=== PATIENT | male | born 1935 | race Caucasian/White ===

== ENCOUNTER 2017-05-25 08:32 | Emergency (ER) | payer MEDICARE, BC ==
[~2017-05-25] VITALS: Ht 182.9 cm; Wt 73.0 kg
[2017-05-25 08:35] VITALS: Ht 182.9 cm; Wt 73.0 kg
--- NOTE | 2017-05-25 09:39 | ERD ---
ER Documentation Chief Complaint Date/Time DATE: 05/25/17 TIME: 09:35 Chief Complaint here for htn and slight headache HPI This is an 82-year-old male with past medical history for hypertension and seasonal allergies, resents the emergency department with complaints of high blood pressure and headache. Patient states he woke up this morning and felt "different" so he checked his blood pressure and it was elevated at 171/93 at home. Patient states he takes Tribenzor every day for hypertension and states "it is not working any more." Patient states he came to the ER for evaluation and medication to lower his blood pressure. Patient denies having the worst headache he has ever had. No vision changes or vision loss. No recent fall or head injury. ROS All systems reviewed and are negative except as per history of present illness. PMhx/Soc Hx Cardiac Disorders: Yes (HTN) Hx Alcohol Use: Yes Hx Substance Use: No Hx Tobacco Use: No Smoking Status: Never smoker Physical Exam Vitals Vital Signs Date Time Temp Pulse Resp B/P Pulse Ox O2 Delivery O2 Flow Rate FiO2 05/25/17 10:35 140/64 05/25/17 08:35 97.5 100 18 189/82 97 Physical Exam Const: Alert, nontoxic-appearing, oriented to person place and time Head: Atraumatic Eyes: Normal Conjunctiva, PERRL, EOMs intact. ENT: Normal External Ears, Nose and Mouth. Neck: Full range of motion..~ No meningismus. Resp: Clear to auscultation bilaterally. No wheezing, rhonchi or crackles. Moderate labored breathing while talking Cardio: Regular rate and rhythm, no murmurs Abd: Soft, non tender, non distended. Normal bowel sounds Skin: No petechiae or rashes Back: No midline or flank tenderness Ext: No cyanosis, or edema Neur: Awake and alert Psych: Normal Mood and Affect Procedures/[place] [id number] Radiology Main Line: [phone] DIAGNOSTIC IMAGING REPORT Patient: AUDREY MCQUEEN : 1935 Age: 82 Sex: M MR #: [id number] DOS: 05/25/17 0908 Ordering MD: COURTNEY MEDINA NP Location: [facility] Room/Bed: PROCEDURE: XR Chest. CLINICAL INDICATION: shortness of breath TECHNIQUE: Single frontal chest x-ray. COMPARISON: None. FINDINGS: The lungs are hyperinflated consistent with COPD. Interstitial prominence or scarring is seen most notable at the left lung base. There are no alveolar infiltrates, edema, or effusions. . Calcific atherosclerosis of the aorta is present.. The cardiomediastinal silhouette is unremarkable. The osseous structures are intact. IMPRESSION: COPD with interstitial scarring at the left lower lung. Calcific atherosclerosis of the aorta.. [id number] [place] [id number] Radiology Main Line: [phone] DIAGNOSTIC IMAGING REPORT Patient: AUDREY MCQUEEN : 1935 Age: 82 Sex: M MR #: [id number] DOS: 05/25/17 0908 Ordering MD: COURTNEY MEDINA NP Location: [facility] Room/Bed: PROCEDURE: CT Brain without contrast. CLINICAL INDICATION: Headache. Hypertension. TECHNIQUE: A CT of the brain was performed on a multidetector CT scanner utilizing axial sections from the skull base through the vertex without contrast. Images were reviewed on a high-resolution PACS workstation. Exam CTDI = 43.38 mGy and the DLP = 720.23 mGy-cm. One or more of the following dose reduction techniques were used: Automated exposure control Adjustment of the mA and/or kV according to patient size. Use of iterative reconstruction technique. COMPARISON: None available FINDINGS: Moderate diffuse cerebral and cerebellar atrophy is present. There is proportionate dilatation of the ventricular system and sulci in a symmetric fashion. There is prominence of the extraaxial spaces secondary to atrophy. There is no evidence of intracranial hemorrhage, mass effect or midline shift. There is a small focus of chronic lacunar infarct in the right external capsule. No abnormal intra-axial or extra-axial fluid collections are seen. The density of the brain is normal and the andre/white matter differentiation is well preserved. Moderate patchy diffuse deep white matter microangiopathic ischemic change is seen. The osseous structures are unremarkable. Paranasal sinuses are clear. Vascular calcifications are identified. IMPRESSION: 1. No intracranial hemorrhage, mass effect or midline shift. 2. Moderate generalized atrophy. Moderate patchy microangiopathic ischemic change. Chronic lacunar infarct in the right external capsule. 3. Intracranial atherosclerosis. MDM: This is an 82-year-old male resenting to emergency department with complaints of hypertension and headache. Upon arrival patient's blood pressure 189/82 mmHg and heart rate 100 bpm. Patient states he has history of hypertension and usually takes Tribenzor once daily for blood pressure management. No vision changes. Patient denies this being the worst headache he has ever had. Reports mild headache. No recent fall or head injury. CT brain reviewed by radiologist as no intracranial hemorrhage, mass effect or midline shift. upon reassessment of vitals, BP decreased and now within normal limits. Vitals stable. Patient reports feeling better. Low suspicion for CVA, TIA or intracranial hemorrhage. Patient is appropriate for outpatient management and instructed to follow up with PCP in the next 2-3 days for reassessment. Return to ED for any new or worsening symptoms. Patient verbalizes understanding. All questions answered at discharge. Departure Diagnosis: Primary Impression: Hypertension Condition: Stable COURTNEY MEDINA NP May 25, 2017 09:39
--- NOTE | 2017-05-25 09:59 | RADRPT ---
PROCEDURE: XR Chest. CLINICAL INDICATION: shortness of breath TECHNIQUE: Single frontal chest x-ray. COMPARISON: None. FINDINGS: The lungs are hyperinflated consistent with COPD. Interstitial prominence or scarring is seen most notable at the left lung base. There are no alveolar infiltrates, edema, or effusions. . Calcific atherosclerosis of the aorta is present.. The cardiomediastinal silhouette is unremarkable. The oss eous structures are intact. IMPRESSION: COPD with interstitial scarring at the left lower lung. Calcific atherosclerosis of the aorta.. RPTAT: JJ .Romeo Curran MD, Date Time Electronically viewed and signed by .Romeo Curran MD, MD on 05/25/2017 09:59 .L/
--- NOTE | 2017-05-25 10:26 | RADRPT ---
PROCEDURE: CT Brain without contrast. CLINICAL INDICATION: Headache. Hypertension. TECHNIQUE: A CT of the brain was performed on a multidetector CT scanner utilizing axial sections from the skull base through the vertex without contrast. Images were reviewed on a high-resolution Bery[employer] workstation. Exam CTDI = 43.38 mGy and the DLP = 720.23 mGy-cm. One or more of the following dose reduction techniques were used: Automated exposure control Adjustment of the mA and/or kV according to patient size. Use of iterative reconstruction technique. COMPARISON: None available FINDINGS: Moderate diffuse cerebral and cerebellar atrophy is present. There is proportionate dilatation of t he ventricular system and sulci in a symmetric fashion. There is prominence of the extraaxial spaces secondary to atrophy. There is no evidence of intracranial hemorrhage, mass effect or midline shift . There is a small focus of chronic lacunar infarct in the right external capsule. No abnormal intra -axial or extra-axial fluid collections are seen. The density of the brain is normal and the andre/w ingris matter differentiation is well preserved. Moderate patchy diffuse deep white matter microangio pathic ischemic change is seen. The osseous structures are unremarkable. Paranasal sinuses are c lear. Vascular calcifications are identified. IMPRESSION: 1. No intracranial hemorrhage, mass effect or midline shift. 2. Moderate generalized atrophy. Moderate patchy microangiopathic ischemic change. Chronic lacunar i nfarct in the right external capsule. 3. Intracranial atherosclerosis. RPTAT: BB .Venice Tobias MD, Date Time Electronically viewed and signed by .Venice Tobias MD, on 05/25/2017 10:26 .O/
[2017-05-25 10:35] VITALS: BP 140/64
== END 2017-05-25 11:11 | disposition home or self-care (01) ==
LOC: FTE 10:42
DX: I10 Essential (primary) hypertension (principal); R51 Headache
CPT/HCPCS: 70450; 71010

== ENCOUNTER 2019-05-10 11:22 | Inpatient (IN) | payer MEDICARE, BC ==
[~2019-05-10] VITALS: Ht 182.9 cm; Wt 61.7 kg
[2019-05-10 11:30] VITALS: Ht 182.9 cm; Wt 61.7 kg
[2019-05-10] MEDS ORDERED: BUDE6HFA INH (12:33)
[2019-05-10] MEDS ORDERED: METO25TA4 ORAL (12:33)
[2019-05-10] MEDS ORDERED: OLME1TAB ORAL (12:33)
[2019-05-10] MEDS ORDERED: MONT10TA24 ORAL (12:33)
[2019-05-10] MEDS ORDERED: TIOT18CA INH (12:33)
--- NOTE | 2019-05-10 13:45 | ERD ---
ER Documentation Chief Complaint Chief Complaint BIB [facility] FOR EVAL OF CP THIS AM. ASA 325MG [employer] BY EMS HPI 84-year-old male who presents to the emergency complaining of chest pain. He states that he woke up this morning and described pressure in his chest. Patient states approximately 20 to 30 minutes of chest pressure that is now completely alleviated. No radiating symptoms no exertional symptoms no nausea or vomiting. Mild diaphoresis. He denies cardiac history or prior cardiac work-up. No symptoms currently. ROS All systems reviewed and are negative except as per history of present illness. Medications Home Meds Reported Medications Olmesartan/Amlodipin/Hcthiazid (Cdwvtqj-Mwwiiw-Qalf 40-10-25Mg) 1 Each Tablet, 1 TAB ORAL DAILY 05/10/19 Budesonide-Formoterol Fumarate* (Symbicort*) 160-4.5 Hfa.aer.ad, 1 PUFF INH DAILY 05/10/19 Metoprolol Tartrate* (Lopressor*) 25 Mg Tablet, 1 TAB ORAL BID 05/10/19 Montelukast Sodium* (Montelukast Sodium*) 10 Mg Tablet, 1 TAB ORAL DAILY 05/10/19 Tiotropium [place]* (Spiriva*) 18 Mcg Cap.w.dev, 1 CAP INH DAILY 05/10/19 Allergies Allergies: Coded Allergies: No Known Allergy (Unverified , 05/10/19) PMhx/Soc Hx Respiratory Disorders: Yes (asthma) Hx Cardiac Disorders: Yes (HTN) Hx Miscellaneous Medical Probl: Yes (borerline diabetes) Hx Alcohol Use: Yes Hx Substance Use: No Hx Tobacco Use: No Smoking Status: Never smoker FmHx Family History: No diabetes Physical Exam Vitals Vital Signs Date Temp Pulse Resp B/P (MAP) Pulse Ox O2 O2 Flow FiO2 Time Delivery Rate 05/10/19 76 18 169/98 98 Room Air 12:00 (121) 05/10/19 98.1 98 17 173/91 94 11:30 (118) Physical Exam General: Well developed, well nourished, no acute distress Head: Normocephalic, atraumatic. Eyes: Pupils equally reactive, EOM intact ENT: Moist mucous membranes Neck: Supple, no lymphadenopathy Respiratory: Lungs clear bilaterally, no distress Cardiovascular: RRR, no murmurs, rubs, or gallops Abdominal: Soft, non-tender, non-distended, no peritoneal signs : Deferred MSK: No edema, no unilateral swelling, 5/5 strength Neurologic: Alert and oriented, moving all extremities, normal speech, no focal weakness, no cerebellar signs Skin: No rash Psych: Normal mood Result Diagram: 05/10/19 1147 05/10/19 1147 Results 24 hrs Laboratory Tests Test 05/10/19 11:47 White Blood Count 5.8 10^3/ul Red Blood Count 4.61 10^6/ul Hemoglobin 14.1 g/dl Hematocrit 42.8 % Mean Corpuscular Volume 92.8 fl Mean Corpuscular Hemoglobin 30.6 pg Mean Corpuscular Hemoglobin Concent 32.9 g/dl Red Cell Distribution Width 13.9 % Platelet Count 245 10^3/UL Mean Platelet Volume 10.0 fl Immature Granulocytes % 0.200 % Neutrophils % 80.9 % Lymphocytes % 9.3 % Monocytes % 8.2 % Eosinophils % 0.9 % Basophils % 0.5 % Nucleated Red Blood Cells % 0.0 /100WBC Immature Granulocytes # 0.010 10^3/ul Neutrophils # 4.7 10^3/ul Lymphocytes # 0.5 10^3/ul Monocytes # 0.5 10^3/ul Eosinophils # 0.1 10^3/ul Basophils # 0.0 10^3/ul Nucleated Red Blood Cells # 0.0 10^3/ul Sodium Level 139 mmol/L Potassium Level 4.3 mmol/L Chloride Level 104 mmol/L Carbon Dioxide Level 28 mmol/L Anion Gap 7 Blood Urea Nitrogen 13 mg/dl Creatinine 0.60 mg/dl Est Glomerular Filtrat Rate mL/min mL/min Glucose Level 172 mg/dl Calcium Level 9.5 mg/dl Troponin I < 0.012 ng/ml Procedures/[facility] EKG, MONITORS, & DIAGNOSTIC IMAGING: EKG: I reviewed and interpreted a 12-lead EKG. Rhythm: Normal sinus rhythm ST Changes: No contiguous ST segment elevations T waves: No contiguous T wave inversions Impression: No evidence of acute cardiac ischemia Repeat EKG: EKG: I reviewed and interpreted a 12-lead EKG. Rhythm: Normal sinus rhythm ST Changes: No contiguous ST segment elevations T waves: No contiguous T wave inversions Impression: No evidence of acute cardiac ischemia Chest x-ray: I reviewed and interpreted a 1 view of the chest Mediastinum: No enlargement Cardiac silhouette: No cardiomegaly Airspace: Clear lung telles bilaterally without evidence of pneumothorax Bones: No evidence of fracture PROCEDURES: None LAB INTERPRETATION: * Negative troponin MEDICAL DECISION MAKING: The patient's history, physical exam and clinical presentation is concerning for possible cardiogenic etiology and acute coronary syndrome. Based on the patient's clinical exam and history and risk factors, I have a much lower clinical concern for pulmonary embolism, acute aortic dissection, pneumothorax, pneumonia, cardiac tamponade HEART Score: Greater than 3 MACE Rate: 16.6% Shared Decision Making: We had a conversation regarding risk stratification, MACE rate, and the risks, benefits, alternatives of disposition planning options. Disposition planning: Telemetry admission ER COURSE: * No symptoms, aspirin given prior to arrival CONSULTATION: None DISPOSITION PLAN: Telemetry admission for management of chest pain to rule out acute coronary syndrome, serial enzymes, risk stratification and consideration of provocative testing CONSULTATION: Accepting care team and consultations: I discussed the current laboratory data, diagnostic imaging and emergency care provided. Admitting team: Dr. Mccarthy Admitting team indication: Insurance directed Departure Diagnosis: Primary Impression: Chest pain Chest pain type: unspecified Qualified Codes: R07.9 - Chest pain, unspecified Condition: Stable ZAIN LEGER MD May 10, 2019 13:45
[2019-05-10] MEDS ORDERED: ACETAMINOPHEN 325 MG TAB PO PRN ×2 (14:00)
[2019-05-10] MEDS ORDERED: MAGNESIUM HYDROXIDE 30ML CUP PO PRN (14:00)
[2019-05-10] MEDS ORDERED: NACL 0.9% 3 ML SYG IV SCH (14:00)
[2019-05-10] MEDS ORDERED: NITROGLYCERIN (SL) 0.4 MG TAB SL PRN (14:00)
[2019-05-10] MEDS ORDERED: ONDANSETRON 4 MG INJ IV PRN ×2 (14:00)
[2019-05-10] MEDS ORDERED: CALCIUM CARBONATE 500 MG CHEW TAB PO PRN (14:00)
[2019-05-10] MEDS ORDERED: DOCUSATE SODIUM 100 MG CAP PO PRN (14:00)
[2019-05-10] MEDS ORDERED: hydrALAzine 20 MG INJ IV PRN (14:00)
[2019-05-10] MEDS ORDERED: ALBUTEROL 0.083% (NEB) 2.5 MG/3 ML AMP HHN PRN (15:00)
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
[2019-05-10] MEDS ORDERED: AMLODIPINE 5 MG TAB PO ONE (15:21)
--- NOTE | 2019-05-10 15:26 | CONS ---
Assessment/Plan Assessment/Plan Hospital Course (Demo Recall) Chest pain Hypertension Likely COPD Patient with chest pain which woke up with this morning, initially sharp and tingling then pressure for a few seconds and since resolved Denies exertional chest pain or shortness of breath Initial cardiac enzymes negative, ECG with no significant ischemic abnormalities Check serial cardiac enzymes, echocardiogram Blood pressure control Consultation Date/Type/Reason Admit Date/Time 05/10/19 Type of Consult Cardiology Reason for Consultation Chest pain Date/Time of Note DATE: 05/10/19 TIME: 15:22 Hx of Present Illness This is an 84-year-old male with past history of hypertension, tobacco use who presents with chest pain which began this morning. Chest pain was in his left shoulder and left side of chest. It was sharp and tingling like lasting for a few seconds and then some pressure and then resolved. Denies any shortness of breath, palpitations, dizziness or lightheadedness. Denies exertional chest pain or shortness of breath otherwise. He tells me he has multiple medication allergies and intolerant to many medicines. Denies any fevers or chills. 12 point review of systems was performed with all pertinent positives and negatives mentioned above and all else is negative Past Medical History COPD Medical History: hypertension Home Meds Reported Medications Olmesartan/Amlodipin/Hcthiazid ([id number] 40-10-25Mg) 1 Each Tablet, 1 TAB ORAL DAILY 05/10/19 Budesonide-Formoterol Fumarate* (Symbicort*) 160-4.5 Hfa.aer.ad, 1 PUFF INH DAILY 05/10/19 Metoprolol Tartrate* (Lopressor*) 25 Mg Tablet, 1 TAB ORAL BID 05/10/19 Montelukast Sodium* (Montelukast Sodium*) 10 Mg Tablet, 1 TAB ORAL DAILY 05/10/19 Tiotropium [place]* (Spiriva*) 18 Mcg Cap.w.dev, 1 CAP INH DAILY 05/10/19 Medications Current Medications Ondansetron HCl (Zofran Inj) 4 mg ER BRIDGE PRN IV NAUSEA/VOMITING; Start 05/10/19 at 14:00; Stop 05/11/19 at 13:59 Acetaminophen (Tylenol Tab) 650 mg ER BRIDGE PRN PO .MILD PAIN 1-3 OR TEMP; Start 05/10/19 at 14:00; Stop 05/11/19 at 13:59 Metoprolol Tartrate (Lopressor) 25 mg BID PO ; Start 05/10/19 at 21:00; Status UNV Montelukast Sodium (Singulair) 1 mg DAILY PO ; Start 05/11/19 at 09:00; Status UNV Tiotropium [place] (Spiriva) 1 inh DAILY INH ; Start 05/11/19 at 09:00; Status UNV Miscellaneous Information 1 puff DAILY INH ; Start 05/11/19 at 09:00; Status UNV Miscellaneous Information 1 tab DAILY ORAL ; Start 05/11/19 at 09:00; Status UNV IV Flush (NS 3 ml) 3 ml PER PROTOCOL IV ; Start 05/10/19 at 14:00; Status UNV Ondansetron HCl (Zofran Inj) 4 mg Q6H PRN IV NAUSEA/VOMITING; Start 05/10/19 at 14:00; Status UNV Aspirin (Aspirin) 81 mg DAILY PO ; Start 05/11/19 at 09:00; Status UNV Nitroglycerin (Nitroglycerin (Sl Tab) 0.4 Mg) 1 tab Q5M PRN SL .CHEST PAIN; Start 05/10/19 at 14:00; Status UNV Acetaminophen (Tylenol Tab) 650 mg Q6H PRN PO .PAIN 1-3 OR TEMP; Start 05/10/19 at 14:00; Status UNV Docusate Sodium (Colace) 100 mg Q12H PRN PO .CONSTIPATION; Start 05/10/19 at 14:00; Status UNV Magnesium Hydroxide (Milk Of Mag) 30 ml DAILY PRN PO .CONSTIPATION; Start 05/10/19 at 14:00; Status UNV Pantoprazole (Protonix Tab) 40 mg DAILY@06 PO ; Start 05/11/19 at 06:00; Status UNV Heparin Sodium (Porcine) (Heparin (5000 Units/1ml)) 5,000 unit Q8 SC ; Start 05/10/19 at 14:00; Status UNV Calcium Carbonate (Tums) 500 mg QID PRN PO indigestion; Start 05/10/19 at 14:00; Status UNV Hydralazine HCl (Apresoline) 10 mg Q4H PRN IV SBP >170; Start 05/10/19 at 14:00; Status UNV Albuterol (Proventil 0.083% (Neb)) 2.5 mg Q2H RESP THERAPY PRN HHN SHORTNESS OF BREATH; Start 05/10/19 at 15:00; Status UNV Allergies: Coded Allergies: No Known Allergy (Unverified , 05/10/19) Past Surgical History Past Surgical Hx: noncontributory Family History Significant Family History: heart disease Social History Alcohol Use: none Smoking Status: Former smoker Drug Use: none Exam/Review of Systems Vital Signs Vitals Vital Signs Date Temp Pulse Resp B/P (MAP) Pulse Ox O2 O2 Flow FiO2 Time Delivery Rate 05/10/19 76 18 169/98 98 Room Air 12:00 (121) 05/10/19 98.1 11:30 Exam Constitutional: alert, oriented (No apparent distress, sitting in chair, no dyspnea with speaking) Head: normocephalic Respiratory: other (Coarse breath sounds bilaterally, no wheezing) Cardiovascular: regular rate and rhythm, systolic murmur (S1-S2 heard) Gastrointestinal: soft, non-tender, bowel sounds Extremities: other (No significant edema) Labs Result Diagram: 05/10/19 1147 05/10/19 1147 Results 24hrs Laboratory Tests Test 05/10/19 11:47 White Blood Count 5.8 Red Blood Count 4.61 L Hemoglobin 14.1 Hematocrit 42.8 Mean Corpuscular Volume 92.8 Mean Corpuscular Hemoglobin 30.6 Mean Corpuscular Hemoglobin Concent 32.9 Red Cell Distribution Width 13.9 Platelet Count 245 Mean Platelet Volume 10.0 Immature Granulocytes % 0.200 Neutrophils % 80.9 H Lymphocytes % 9.3 L Monocytes % 8.2 Eosinophils % 0.9 Basophils % 0.5 Nucleated Red Blood Cells % 0.0 Immature Granulocytes # 0.010 Neutrophils # 4.7 Lymphocytes # 0.5 L Monocytes # 0.5 Eosinophils # 0.1 Basophils # 0.0 Nucleated Red Blood Cells # 0.0 Sodium Level 139 Potassium Level 4.3 Chloride Level 104 Carbon Dioxide Level 28 Anion Gap 7 Blood Urea Nitrogen 13 Creatinine 0.60 L Est Glomerular Filtrat Rate mL/min Glucose Level 172 Calcium Level 9.5 Troponin I < 0.012 Imaging Imaging Sinus rhythm at 90 bpm, QRS 100 ms, no significant ischemic ST abnormalities Medications Medications Current Medications Ondansetron HCl (Zofran Inj) 4 mg ER BRIDGE PRN IV NAUSEA/VOMITING; Start 05/10/19 at 14:00; Stop 05/11/19 at 13:59 Acetaminophen (Tylenol Tab) 650 mg ER BRIDGE PRN PO .MILD PAIN 1-3 OR TEMP; Start 05/10/19 at 14:00; Stop 05/11/19 at 13:59 Metoprolol Tartrate (Lopressor) 25 mg BID PO ; Start 05/10/19 at 21:00; Status UNV Montelukast Sodium (Singulair) 1 mg DAILY PO ; Start 05/11/19 at 09:00; Status UNV Tiotropium [place] (Spiriva) 1 inh DAILY INH ; Start 05/11/19 at 09:00; Status UNV Miscellaneous Information 1 puff DAILY INH ; Start 05/11/19 at 09:00; Status UNV Miscellaneous Information 1 tab DAILY ORAL ; Start 05/11/19 at 09:00; Status U NV IV Flush (NS 3 ml) 3 ml PER PROTOCOL IV ; Start 05/10/19 at 14:00; Status UNV Ondansetron HCl (Zofran Inj) 4 mg Q6H PRN IV NAUSEA/VOMITING; Start 05/10/19 at 14:00; Status UNV Aspirin (Aspirin) 81 mg DAILY PO ; Start 05/11/19 at 09:00; Status UNV Nitroglycerin (Nitroglycerin (Sl Tab) 0.4 Mg) 1 tab Q5M PRN SL .CHEST PAIN; Start 05/10/19 at 14:00; Status UNV Acetaminophen (Tylenol Tab) 650 mg Q6H PRN PO .PAIN 1-3 OR TEMP; Start 05/10/19 at 14:00; Status UNV Docusate Sodium (Colace) 100 mg Q12H PRN PO .CONSTIPATION; Start 05/10/19 at 14:00; Status UNV Magnesium Hydroxide (Milk Of Mag) 30 ml DAILY PRN PO .CONSTIPATION; Start 05/10/19 at 14:00; Status UNV Pantoprazole (Protonix Tab) 40 mg DAILY@06 PO ; Start 05/11/19 at 06:00; Status UNV Heparin Sodium (Porcine) (Heparin (5000 Units/1ml)) 5,000 unit Q8 SC ; Start 05/10/19 at 14:00; Status UNV Calcium Carbonate (Tums) 500 mg QID PRN PO indigestion; Start 05/10/19 at 14:00; Status UNV Hydralazine HCl (Apresoline) 10 mg Q4H PRN IV SBP >170; Start 05/10/19 at 14:00; Status UNV Albuterol (Proventil 0.083% (Neb)) 2.5 mg Q2H RESP THERAPY PRN HHN SHORTNESS OF BREATH; Start 05/10/19 at 15:00; Status UNV Bao Garza DO May 10, 2019 15:26
[2019-05-10] MEDS: HEPARIN 5,000 UNIT/1 ML VIAL SC SCH ×2 (16:06→23:50)
[2019-05-10] MEDS: HYDROCHLOROTHIAZIDE 12.5 MG CAP PO SCH (16:35)
[2019-05-10 20:13] VITALS: BP 187/88; PULSE 83; RESP 18
[2019-05-10] MEDS: LOSARTAN 25 MG TAB PO SCH (23:12)
[2019-05-10] MEDS: AMLODIPINE 5 MG TAB PO SCH (23:12)
[2019-05-10] MEDS: METOPROLOL 25 MG TAB PO SCH (23:12)
[2019-05-11] VITALS (8 sets, daily range): BP systolic 130–173; BP diastolic 56–86; PULSE 75–104; RESP 18
[2019-05-11] MEDS: PANTOPRAZOLE (EC) 40 MG TAB PO SCH (05:43)
[2019-05-11] MEDS: HEPARIN 5,000 UNIT/1 ML VIAL SC SCH ×3 (06:37→21:53)
[2019-05-11] MEDS: FLUTICASONE/VILANTEROL 200-25 INH DEVICE INH SCH (08:27)
[2019-05-11] MEDS: ASPIRIN 81 MG TAB PO SCH (08:28)
[2019-05-11] MEDS: TIOTROPIUM 18 MCG CAPSULE INHA DEV INH SCH (08:28)
[2019-05-11] MEDS: MONTELUKAST 10 MG TAB PO SCH (08:29)
[2019-05-11] MEDS: HYDROCHLOROTHIAZIDE 12.5 MG CAP PO SCH (08:29)
[2019-05-11] MEDS: LOSARTAN 25 MG TAB PO SCH ×2 (08:30→21:42)
[2019-05-11] MEDS: AMLODIPINE 5 MG TAB PO SCH ×2 (08:30→21:41)
[2019-05-11] MEDS: METOPROLOL 25 MG TAB PO SCH ×2 (08:30→21:42)
[2019-05-11] MEDS ORDERED: NON-FORMULARY/PATIENT OWN MED (Olmesartan/Amlodipin/Hcthiazid (Olmsrtn-Amldpn-Hctz 40-10-2 ORAL SCH (09:00)
--- NOTE | 2019-05-11 10:46 | PN ---
Date/Time of Note Date/Time of Note DATE: 05/11/19 TIME: 10:44 Assessment/Plan VTE Prophylaxis SCD applied (from Nsg): Yes Pharmacological prophylaxis: LMWH Lines/Catheters IV Catheter Type (from Nrsg): Saline Lock Urinary Cath still in place: No Assessment/Plan Assessment/Plan 1. Acute atypical chest pain, rule out ACS - Serial trops negative and awaiting ECHO results - Cardiology consultation appreciated and if no issues with ECHO, will d/c hemant - most likely stress related - nitro, O2 PRN - lipid panel within normal limits with no need for statin 2. HTN - continue home medications 3. Environmental allergies - continue Singulair 4. h/o tobacco abuse - continue Spiriva - Neb PRN 5. Disposition - Awaiting ECHO results and will d/c once cleared by Cardiology for discharge home Result Diagram: 05/11/19 0714 05/11/19 0714 Results 24hrs Laboratory Tests Test 05/10/19 11:46 05/10/19 11:47 05/10/19 20:11 05/11/19 02:21 Hemoglobin A1c 5.7 White Blood Count 5.8 Red Blood Count 4.61 L Hemoglobin 14.1 Hematocrit 42.8 Mean Corpuscular 92.8 Volume Mean Corpuscular 30.6 Hemoglobin Mean Corpuscular 32.9 Hemoglobin Concent Red Cell 13.9 Distribution Width Platelet Count 245 Mean Platelet Volume 10.0 Immature 0.200 Granulocytes % Neutrophils % 80.9 H Lymphocytes % 9.3 L Monocytes % 8.2 Eosinophils % 0.9 Basophils % 0.5 Nucleated Red Blood 0.0 Cells % Immature 0.010 Granulocytes # Neutrophils # 4.7 Lymphocytes # 0.5 L Monocytes # 0.5 Eosinophils # 0.1 Basophils # 0.0 Nucleated Red Blood 0.0 Cells # Sodium Level 139 Potassium Level 4.3 Chloride Level 104 Carbon Dioxide Level 28 Anion Gap 7 Blood Urea Nitrogen 13 Creatinine 0.60 L Est Glomerular Filtrat Rate mL/min Glucose Level 172 Calcium Level 9.5 Troponin I < 0.012 < 0.012 0.019 Creatine Kinase 139 176 Creatine Kinase 3.7 2.7 Index Creatinine Kinase MB 5.18 H 4.83 H (Mass) Test 05/11/19 07:14 White Blood Count 5.1 Red Blood Count 4.95 Hemoglobin 15.0 Hematocrit 45.5 Mean Corpuscular 91.9 Volume Mean Corpuscular 30.3 Hemoglobin Mean Corpuscular 33.0 Hemoglobin Concent Red Cell 13.7 Distribution Width Platelet Count 254 Mean Platelet Volume 10.0 Immature 0.400 Granulocytes % Neutrophils % 70.8 Lymphocytes % 14.8 L Monocytes % 11.1 H Eosinophils % 2.1 Basophils % 0.8 Nucleated Red Blood 0.0 Cells % Immature 0.020 Granulocytes # Neutrophils # 3.6 Lymphocytes # 0.8 Monocytes # 0.6 Eosinophils # 0.1 Basophils # 0.0 Nucleated Red Blood 0.0 Cells # Sodium Level 139 Potassium Level 3.5 Chloride Level 99 Carbon Dioxide Level 30 Anion Gap 10 Blood Urea Nitrogen 11 Creatinine 0.60 L Est Glomerular Filtrat Rate mL/min Glucose Level 91 # Calcium Level 9.6 Magnesium Level 2.0 Triglycerides Level 72 Cholesterol Level 151 LDL Cholesterol, 88 Calculated HDL Cholesterol 49 Cholesterol/HDL 3.0 Ratio Thyroid Stimulating 2.130 Hormone (TSH) Subjective 24 Hr Interval Summary Free Text/Dictation Patient states hes feeling better and denies any further chest pain. No acute overnight events. Exam/Review of Systems Exam Vitals Vital Signs Date Temp Pulse Resp B/P (MAP) Pulse Ox O2 O2 Flow FiO2 Time Delivery Rate 05/11/19 99.0 80 18 133/56 95 07:08 (81) 05/10/19 Room Air 19:05 Intake and Output 05/10/19 05/10/19 05/11/19 1515:00 23:00 07:00 OutputOutput Total 800 ml 650 ml BalanceBalance -800 ml -650 ml Exam General: Patient is sitting upright in bed, no acute distress Neck: Supple Chest: nontender Lungs: Diminished breath sounds, nonlabored breathing, no wheezing or rhonchi appreciated Heart: Normal S1-S2, Regular rhythm and rate. No murmur, S3, or S4 Abdomen: Soft , nontender, nondistended , bowel sounds are present. No guarding no rebound tenderness Extremities: Normal to inspection, no edema no cyanosis Results Results 24hrs Laboratory Tests Test 05/10/19 11:46 05/10/19 11:47 05/10/19 20:11 05/11/19 02:21 Hemoglobin A1c 5.7 White Blood Count 5.8 Red Blood Count 4.61 L Hemoglobin 14.1 Hematocrit 42.8 Mean Corpuscular 92.8 Volume Mean Corpuscular 30.6 Hemoglobin Mean Corpuscular 32.9 Hemoglobin Concent Red Cell 13.9 Distribution Width Platelet Count 245 Mean Platelet Volume 10.0 Immature 0.200 Granulocytes % Neutrophils % 80.9 H Lymphocytes % 9.3 L Monocytes % 8.2 Eosinophils % 0.9 Basophils % 0.5 Nucleated Red Blood 0.0 Cells % Immature 0.010 Granulocytes # Neutrophils # 4.7 Lymphocytes # 0.5 L Monocytes # 0.5 Eosinophils # 0.1 Basophils # 0.0 Nucleated Red Blood 0.0 Cells # Sodium Level 139 Potassium Level 4.3 Chloride Level 104 Carbon Dioxide Level 28 Anion Gap 7 Blood Urea Nitrogen 13 Creatinine 0.60 L Est Glomerular Filtrat Rate mL/min Glucose Level 172 Calcium Level 9.5 Troponin I < 0.012 < 0.012 0.019 Creatine Kinase 139 176 Creatine Kinase 3.7 2.7 Index Creatinine Kinase MB 5.18 H 4.83 H (Mass) Test 05/11/19 07:14 White Blood Count 5.1 Red Blood Count 4.95 Hemoglobin 15.0 Hematocrit 45.5 Mean Corpuscular 91.9 Volume Mean Corpuscular 30.3 Hemoglobin Mean Corpuscular 33.0 Hemoglobin Concent Red Cell 13.7 Distribution Width Platelet Count 254 Mean Platelet Volume 10.0 Immature 0.400 Granulocytes % Neutrophils % 70.8 Lymphocytes % 14.8 L Monocytes % 11.1 H Eosinophils % 2.1 Basophils % 0.8 Nucleated Red Blood 0.0 Cells % Immature 0.020 Granulocytes # Neutrophils # 3.6 Lymphocytes # 0.8 Monocytes # 0.6 Eosinophils # 0.1 Basophils # 0.0 Nucleated Red Blood 0.0 Cells # Sodium Level 139 Potassium Level 3.5 Chloride Level 99 Carbon Dioxide Level 30 Anion Gap 10 Blood Urea Nitrogen 11 Creatinine 0.60 L Est Glomerular Filtrat Rate mL/min Glucose Level 91 # Calcium Level 9.6 Magnesium Level 2.0 Triglycerides Level 72 Cholesterol Level 151 LDL Cholesterol, 88 Calculated HDL Cholesterol 49 Cholesterol/HDL 3.0 Ratio Thyroid Stimulating 2.130 Hormone (TSH) Medications Medication Current Medications Ondansetron HCl (Zofran Inj) 4 mg ER BRIDGE PRN IV NAUSEA/VOMITING; Start 05/10/19 at 14:00; Stop 05/11/19 at 13:59 Acetaminophen (Tylenol Tab) 650 mg ER BRIDGE PRN PO .MILD PAIN 1-3 OR TEMP; Start 05/10/19 at 14:00; Stop 05/11/19 at 13:59 Metoprolol Tartrate (Lopressor) 25 mg BID PO Last administered on 05/11/19at 08:30; Admin Dose 25 MG; Start 05/10/19 at 21:00 Montelukast Sodium (Singulair) 1 mg DAILY PO Last administered on 05/11/19at 08:29; Admin Dose 1 MG; Start 05/11/19 at 09:00 Tiotropium [place] (Spiriva) 1 inh DAILY INH Last administered on 05/11/19at 08:28; Admin Dose 1 INH; Start 05/11/19 at 09:00 Fluticasone/ Vilanterol (Breo Ellipta 200-25 Mcg Inh) 1 inh DAILY INH Last administered on 05/11/19at 08:27; Admin Dose 1 INH; Start 05/11/19 at 09:00 IV Flush (NS 3 ml) 3 ml PER PROTOCOL IV ; Start 05/10/19 at 14:00 Ondansetron HCl (Zofran Inj) 4 mg Q6H PRN IV NAUSEA/VOMITING; Start 05/10/19 at 14:00 Aspirin (Aspirin) 81 mg DAILY PO Last administered on 05/11/19at 08:28; Admin Dose 81 MG; Start 05/11/19 at 09:00 Nitroglycerin (Nitroglycerin (Sl Tab) 0.4 Mg) 1 tab Q5M PRN SL .CHEST PAIN; Start 05/10/19 at 14:00 Acetaminophen (Tylenol Tab) 650 mg Q6H PRN PO .PAIN 1-3 OR TEMP; Start 05/10/19 at 14:00 Docusate Sodium (Colace) 100 mg Q12H PRN PO .CONSTIPATION; Start 05/10/19 at 14:00 Magnesium Hydroxide (Milk Of Mag) 30 ml DAILY PRN PO .CONSTIPATION; Start 05/10/19 at 14:00 Pantoprazole (Protonix Tab) 40 mg DAILY@06 PO Last administered on 05/11/19at 05:43; Admin Dose 40 MG; Start 05/11/19 at 06:00 Heparin Sodium (Porcine) (Heparin (5000 Units/1ml)) 5,000 unit Q8 SC Last administered on 05/11/19at 06:37; Admin Dose 5,000 UNIT; Start 05/10/19 at 14:00 Calcium Carbonate (Tums) 500 mg QID PRN PO indigestion; Start 05/10/19 at 14:00 Hydralazine HCl (Apresoline) 10 mg Q4H PRN IV SBP >170; Start 05/10/19 at 14:00 Albuterol (Proventil 0.083% (Neb)) 2.5 mg Q2H RESP THERAPY PRN HHN SHORTNESS OF BREATH; Start 05/10/19 at 15:00 Amlodipine Besylate (Norvasc) 5 mg BID PO Last administered on 05/11/19at 08:30; Admin Dose 5 MG; Start 05/10/19 at 21:00 Hydrochlorothiazide (Hydrochlorothiazide) 12.5 mg DAILY PO Last administered on 05/11/19at 08:29; Admin Dose 12.5 MG; Start 05/10/19 at 17:00 Losartan Potassium (Cozaar) 25 mg BID PO Last administered on 05/11/19 08:30; Admin Dose 25 MG; Start 05/10/19 at 21:00 SOFIA AYOUB MD May 11, 2019 10:46
--- NOTE | 2019-05-11 16:03 | RADRPT ---
Echocardiogram Report Patient Name: AUDREY MCQUEEN JOHPatient ID: [id number] : 1935 (84y 2m)Study Date: 05/11/2019 7:37:04 AM Gender: MAccession #: [id number] Tech: GarryMary Santos [facility] Location: [facility] Ref.Physician: SOFIA AYOUB Height(Cm): BSA: Weight(Kg): Quality: AdequateOrder Physician: SOFIA AYOUB Account #: Procedures: Echocardiographic Report: Transthoracic echocardiogram with complete 2D, M-Mode, and doppler examination. Indications: Evaluate Left Ventricular function, and Chest Pain. Measurements: 2D/M Mode Doppler Measurement Value Normal Range Measurement Value Normal Range LVIDd 2D 3.9 [ 4.2 - 5.8 ] cm AV Peak Leonardo 1.7 [ 100.0 - 170.0 ] cm/sec LVIDs 2D 2.0 [ 2.5 - 4.0 ] cm AV Peak PG 11.0 [ 2.0 - 9.0 ] mmHg LVPWd 2D 1.1 [ 0.6 - 1.0 ] cm LVOT Peak Leonardo 1.1 [ 70.0 - 110.0 ] cm/sec IVSd 2D 1.1 [ 0.6 - 1.0 ] cm LVOT Peak PG 5.0 [ 2.0 - 6.0 ] mmHg AoR Diam 2D 2.7 [ 2.6 - 3.4 ] cm MV E Peak Leonardo 0.7 [ 60.0 - 130.0 ] cm/sec EDV 2D 66.3 [ 62.0 - 150.0 ] ml MV A Peak Leonardo 1.2 [ 100.0 - 120.0 ] cm/sec ESV 2D 13.1 [ 21.0 - 61.0 ] ml MV E/A 0.5 [ 0.8 - 1.5 ] ratio EF 2D 80.2 [ 52.0 - 72.0 ] percent MV Decel Time 176 [ 104 - 258 ] msec LA Dimen 2D 2.8 [ 3.0 - 4.0 ] cm Lat E` Leonardo 0.1 [ 10.0 - 15.0 ] cm/sec Lateral E/E` 7.1 [ 1.0 - 2.0 ] ratio Med E` Leonardo 0.1 cm/sec MV E/A 0.5 [ 0.8 - 1.5 ] ratio TR Peak Leonardo 2.4 [ 100.0 - 280.0 ] cm/sec TR Peak PG 23.0 mmHg RVSP 26.0 [ 10.0 - 36.0 ] mmHg RA Pressure 3.0 mmHg Findings: Left Ventricle: Hyperdynamic left ventricular systolic function. Normal left ventricular cavity size. Mild concentric left ventricular hypertrophy. Ejection fraction is visually estimated at 70 %. Tissue Doppler/Mitral Doppler indices are consistent with impaired relaxation (Stage I diastolic dysfunction). Right Ventricle: Normal right ventricular size. Normal right ventricular systolic function. Left Atrium: The left atrium is normal in size. Right Atrium: The right atrium is normal in size. Mitral Valve: Mitral valve leaflets appear mildly thickened. Mild mitral annular calcification. Trace mitral regurgitation. Aortic Valve: No significant aortic stenosis or insufficiency. Aortic cusps appear mildly calcified. Tricuspid Valve: Normal appearance of the tricuspid valve. The estimated Peak RVSP is 26 mmHg. There is trace tricuspid regurgitation. Pulmonic Valve: Normal pulmonic valve appearance. Pericardium: Normal pericardium with no significant pericardial effusion. Aorta: Normal aortic root. IVC: Normal size and normal respiratory collapse consistent with normal right atrial pressure. Conclusions: Hyperdynamic left ventricular systolic function. Normal left ventricular cavity size. Mild concentric left ventricular hypertrophy. Ejection fraction is visually estimated at 70 %. Tissue Doppler/Mitral Doppler indices are consistent with impaired relaxation (Stage I diastolic dysfunction). Normal right ventricular size. Normal right ventricular systolic function. No significant valvular stenosis or regurgitation seen. Normal pericardium with no significant pericardial effusion. Electronically Signed By: Bao Garza 2019-05-11 16:02:25 PDT
[2019-05-11] MEDS ORDERED: RISPERIDONE 0.25 MG TAB PO ONE (16:30)
--- NOTE | 2019-05-11 17:08 | PDOCDIS ---
Discharge Instructions DIAGNOSIS Discharge Diagnosis 1. Acute atypical chest pain, stress related. noncardiac 2. Hypertension 3. Environmental allergies 4. h/o remote tobacco use CONDITION [id number] Patient Condition: [id number] Stable HOME CARE INSTRUCTIONS: [id number] Diet Instructions: [id number] Low Fat /Cholesterol ACTIVITY: [id number] Activity Restrictions: [id number] No Restrictions FOLLOW UP/APPOINTMENTS Follow-up Plan 1. Follow up with your primary care physician in 1-2 weeks 2. Continue all medications as prescribed 3. Try and limit putting yourself in any stressful situation since it contr ibuted to your chest discomfort 4. You will have a nurse come to your home and assess need for any services as well as check your vitals 5. If experiencing any concerning symptoms, please go to your nearest emergency department SOFIA AYOUB MD May 11, 2019 17:08
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
--- NOTE | 2019-05-11 18:18 | CONS ---
Assessment/Plan Assessment/Plan Hospital Course (Demo Recall) Chest pain, resolved Preserved left ventricular ejection fraction Hypertension Likely COPD Patient with chest pain which woke up with this morning, initially sharp and tingling then pressure for a few seconds and since resolved Denies exertional chest pain or shortness of breath Initial cardiac enzymes negative, ECG with no significant ischemic abnormalities Serial cardiac enzymes remain negative, echocardiogram with preserved left ventricular ejection fraction Blood pressure control DC planning Consultation Date/Type/Reason Admit Date/Time May 10, 2019 at 13:41 Initial Consult Date Type of Consult Cardiology Date/Time of Note DATE: 05/11/19 TIME: 18:17 24 HR Interval Summary Free Text/Dictation Denies any further chest pain, denies shortness of breath or palpitations Exam/Review of Systems Vital Signs Vitals Vital Signs Date Temp Pulse Resp B/P (MAP) Pulse Ox O2 O2 Flow FiO2 Time Delivery Rate 05/11/19 99.0 89 18 156/72 97 15:36 (100) 05/10/19 Room Air 19:05 Intake and Output 05/10/19 05/10/19 05/11/19 1515:00 23:00 07:00 OutputOutput Total 800 ml 650 ml BalanceBalance -800 ml -650 ml Exam Constitutional: alert, oriented (No apparent distress) Head: normocephalic Respiratory: other (Coarse breath sounds bilaterally, no wheezing) Cardiovascular: regular rate and rhythm (S1-S2 heard) Gastrointestinal: soft, non-tender, bowel sounds Extremities: other (Trace edema) Labs Result Diagram: 05/11/19 0714 05/11/19 0714 Results 24hrs Laboratory Tests Test 05/10/19 20:11 05/11/19 02:21 05/11/19 07:14 Creatine Kinase 139 176 Creatine Kinase Index 3.7 2.7 Creatinine Kinase MB (Mass) 5.18 H 4.83 H Troponin I < 0.012 0.019 White Blood Count 5.1 Red Blood Count 4.95 Hemoglobin 15.0 Hematocrit 45.5 Mean Corpuscular Volume 91.9 Mean Corpuscular Hemoglobin 30.3 Mean Corpuscular Hemoglobin Concent 33.0 Red Cell Distribution Width 13.7 Platelet Count 254 Mean Platelet Volume 10.0 Immature Granulocytes % 0.400 Neutrophils % 70.8 Lymphocytes % 14.8 L Monocytes % 11.1 H Eosinophils % 2.1 Basophils % 0.8 Nucleated Red Blood Cells % 0.0 Immature Granulocytes # 0.020 Neutrophils # 3.6 Lymphocytes # 0.8 Monocytes # 0.6 Eosinophils # 0.1 Basophils # 0.0 Nucleated Red Blood Cells # 0.0 Sodium Level 139 Potassium Level 3.5 Chloride Level 99 Carbon Dioxide Level 30 Anion Gap 10 Blood Urea Nitrogen 11 Creatinine 0.60 L Est Glomerular Filtrat Rate mL/min Glucose Level 91 # Calcium Level 9.6 Magnesium Level 2.0 Triglycerides Level 72 Cholesterol Level 151 LDL Cholesterol, Calculated 88 HDL Cholesterol 49 Cholesterol/HDL Ratio 3.0 Thyroid Stimulating Hormone (TSH) 2.130 Medications Medications Current Medications Metoprolol Tartrate (Lopressor) 25 mg BID PO Last administered on 05/11/19 08:30; Admin Dose 25 MG; Start 05/10/19 at 21:00 Montelukast Sodium (Singulair) 1 mg DAILY PO Last administered on 05/11/19at 08:29; Admin Dose 1 MG; Start 05/11/19 at 09:00 Tiotropium [place] (Spiriva) 1 inh DAILY INH Last administered on 05/11/19at 08:28; Admin Dose 1 INH; Start 05/11/19 at 09:00 Fluticasone/ Vilanterol (Breo Ellipta 200-25 Mcg Inh) 1 inh DAILY INH Last administered on 05/11/19at 08:27; Admin Dose 1 INH; Start 05/11/19 at 09:00 IV Flush (NS 3 ml) 3 ml PER PROTOCOL IV ; Start 05/10/19 at 14:00 Ondansetron HCl (Zofran Inj) 4 mg Q6H PRN IV NAUSEA/VOMITING; Start 05/10/19 at 14:00 Aspirin (Aspirin) 81 mg DAILY PO Last administered on 05/11/19at 08:28; Admin Dose 81 MG; Start 05/11/19 at 09:00 Nitroglycerin (Nitroglycerin (Sl Tab) 0.4 Mg) 1 tab Q5M PRN SL .CHEST PAIN; Start 05/10/19 at 14:00 Acetaminophen (Tylenol Tab) 650 mg Q6H PRN PO .PAIN 1-3 OR TEMP; Start 05/10/19 at 14:00 Docusate Sodium (Colace) 100 mg Q12H PRN PO .CONSTIPATION; Start 05/10/19 at 14:00 Magnesium Hydroxide (Milk Of Mag) 30 ml DAILY PRN PO .CONSTIPATION; Start 05/10/19 at 14:00 Pantoprazole (Protonix Tab) 40 mg DAILY@06 PO Last administered on 05/11/19 05:43; Admin Dose 40 MG; Start 05/11/19 at 06:00 Heparin Sodium (Porcine) (Heparin (5000 Units/1ml)) 5,000 unit Q8 SC Last administered on 05/11/19 13:37; Admin Dose 5,000 UNIT; Start 05/10/19 at 14:00 Calcium Carbonate (Tums) 500 mg QID PRN PO indigestion; Start 05/10/19 at 14:00 Hydralazine HCl (Apresoline) 10 mg Q4H PRN IV SBP >170 Last administered on 05/11/19 11:39; Admin Dose 10 MG; Start 05/10/19 at 14:00 Albuterol (Proventil 0.083% (Neb)) 2.5 mg Q2H RESP THERAPY PRN HHN SHORTNESS OF BREATH; Start 05/10/19 at 15:00 Amlodipine Besylate (Norvasc) 5 mg BID PO Last administered on 05/11/19 08:30; Admin Dose 5 MG; Start 05/10/19 at 21:00 Hydrochlorothiazide (Hydrochlorothiazide) 12.5 mg DAILY PO Last administered on 05/11/19 08:29; Admin Dose 12.5 MG; Start 05/10/19 at 17:00 Losartan Potassium (Cozaar) 25 mg BID PO Last administered on 05/11/19 08:30; Admin Dose 25 MG; Start 05/10/19 at 21:00 Bao Garza DO May 11, 2019 18:18
[2019-05-12 03:31] VITALS: BP 123/60; PULSE 64; RESP 18
[2019-05-12] MEDS: PANTOPRAZOLE (EC) 40 MG TAB PO SCH (05:58)
[2019-05-12] MEDS: HEPARIN 5,000 UNIT/1 ML VIAL SC SCH ×3 (05:58→21:27)
[2019-05-12 07:17] VITALS: BP 133/64; PULSE 79; RESP 18
[2019-05-12] MEDS: ASPIRIN 81 MG TAB PO SCH (09:01)
[2019-05-12] MEDS: LOSARTAN 25 MG TAB PO SCH ×2 (09:03→21:03)
[2019-05-12] MEDS: HYDROCHLOROTHIAZIDE 12.5 MG CAP PO SCH (09:03)
[2019-05-12] MEDS: METOPROLOL 25 MG TAB PO SCH ×2 (09:04→21:02)
[2019-05-12] MEDS: AMLODIPINE 5 MG TAB PO SCH ×2 (09:05→21:03)
[2019-05-12] MEDS: TIOTROPIUM 18 MCG CAPSULE INHA DEV INH SCH (09:05)
[2019-05-12] MEDS: MONTELUKAST 10 MG TAB PO SCH (09:06)
[2019-05-12] MEDS: FLUTICASONE/VILANTEROL 200-25 INH DEVICE INH SCH (09:16)
--- NOTE | 2019-05-12 10:10 | PN ---
Date/Time of Note Date/Time of Note DATE: 05/12/19 TIME: 10:04 Assessment/Plan VTE Prophylaxis Risk score (from Ns)>0 risk: 3 SCD applied (from Ns): No SCD contraindicated: low risk/ambulating Pharmacological prophylaxis: LMWH Lines/Catheters IV Catheter Type (from [facility]): [place] Urinary Cath still in place: No Assessment/Plan Assessment/Plan 1. Acute atypical chest pain - ACS ruled out - serial trops negative and ECHO without structural abnormalities - Cardiology consultation appreciated and cleared for discharge home - most likely stress related - nitro, O2 PRN - lipid panel within normal limits with no need for statin 2. HTN - continue home medications 3. Environmental allergies - continue Singulair 4. h/o tobacco abuse - continue Spiriva - Neb PRN 5. Acute delirium - patient aware of his confusion last night but states feels safe to go home. Able to performed ADLs and obtain his own groceries. He has friends who call and check in on him - SW and CM on board to determine if safe for discharge home 6. Disposition - SW consulted to assist with determining if patient safe for discharge home. If no issues, will d/c. CM on board for possible placement as well Result Diagram: 05/11/1971305/11/19713 Subjective 24 Hr Interval Summary Free Text/Dictation Patient is complaining of fatigue this am and aware of his "episode" of confusion last night. He explained he was not sure if he was coming or going. He does live alone and states friends call and check in on him. He is able to shop for his own groceries and take care of his daily ADLs. He states he feels safe at this time to go home. Exam/Review of Systems Exam Vitals Vital Signs Date Temp Pulse Resp B/P (MAP) Pulse Ox O2 O2 Flow FiO2 Time Delivery Rate 05/12/19 98.0 79 18 133/64 97 Room Air 07:17 (87) Intake and Output 05/11/19 05/11/19 05/12/19 1515:00 23:00 07:00 IntakeIntake Total 850 ml 250 ml OutputOutput Total 350 ml 650 ml 700 ml BalanceBalance -350 ml 200 ml -450 ml Exam General: Patient is sitting upright in bed, no acute distress Mentation: alert and oriented x3 Neck: Supple Chest: nontender Lungs: Diminished breath sounds, nonlabored breathing, no wheezing or rhonchi appreciated Heart: Normal S1-S2, Regular rhythm and rate. No murmur, S3, or S4 Abdomen: Soft , nontender, nondistended , bowel sounds are present. Extremities: Normal to inspection, no edema no cyanosis Medications Medication Current Medications Metoprolol Tartrate (Lopressor) 25 mg BID PO Last administered on 05/12/19 09:04; Admin Dose 25 MG; Start 05/10/19 at 21:00 Montelukast Sodium (Singulair) 1 mg DAILY PO Last administered on 05/12/19 09:06; Admin Dose 1 MG; Start 05/11/19 at 09:00 Tiotropium [place] (Spiriva) 1 inh DAILY INH Last administered on 05/12/19 09:05; Admin Dose 1 INH; Start 05/11/19 at 09:00 Fluticasone/ Vilanterol (Breo Ellipta 200-25 Mcg Inh) 1 inh DAILY INH Last a dministered on 05/12/19 09:16; Admin Dose 1 INH; Start 05/11/19 at 09:00 IV Flush (NS 3 ml) 3 ml PER PROTOCOL IV ; Start 05/10/19 at 14:00 Ondansetron HCl (Zofran Inj) 4 mg Q6H PRN IV NAUSEA/VOMITING; Start 05/10/19 at 14:00 Aspirin (Aspirin) 81 mg DAILY PO Last administered on 05/12/19 09:01; Admin Dose 81 MG; Start 05/11/19 at 09:00 Nitroglycerin (Nitroglycerin (Sl Tab) 0.4 Mg) 1 tab Q5M PRN SL .CHEST PAIN; Start 05/10/19 at 14:00 Acetaminophen (Tylenol Tab) 650 mg Q6H PRN PO .PAIN 1-3 OR TEMP; Start 05/10/19 at 14:00 Docusate Sodium (Colace) 100 mg Q12H PRN PO .CONSTIPATION; Start 05/10/19 at 14:00 Magnesium Hydroxide (Milk Of Mag) 30 ml DAILY PRN PO .CONSTIPATION; Start 05/10/19 at 14:00 Pantoprazole (Protonix Tab) 40 mg DAILY@06 PO Last administered on 05/12/19 05:58; Admin Dose 40 MG; Start 05/11/19 at 06:00 Heparin Sodium (Porcine) (Heparin (5000 Units/1ml)) 5,000 unit Q8 SC Last administered on 05/11/19at 21:53; Admin Dose 5,000 UNIT; Start 05/10/19 at 14:00 Calcium Carbonate (Tums) 500 mg QID PRN PO indigestion; Start 05/10/19 at 14:00 Hydralazine HCl (Apresoline) 10 mg Q4H PRN IV SBP >170 Last administered on 05/11/19at 11:39; Admin Dose 10 MG; Start 05/10/19 at 14:00 Albuterol (Proventil 0.083% (Neb)) 2.5 mg Q2H RESP THERAPY PRN HHN SHORTNESS OF BREATH; Start 05/10/19 at 15:00 Amlodipine Besylate (Norvasc) 5 mg BID PO Last administered on 05/12/19at 09:05; Admin Dose 5 MG; Start 05/10/19 at 21:00 Hydrochlorothiazide (Hydrochlorothiazide) 12.5 mg DAILY PO Last administered on 05/12/19 09:03; Admin Dose 12.5 MG; Start 05/10/19 at 17:00 Losartan Potassium (Cozaar) 25 mg BID PO Last administered on 05/12/19 09:03; Admin Dose 25 MG; Start 05/10/19 at 21:00 SOFIA AYOUB MD May 12, 2019 10:10
[2019-05-12 11:12] VITALS: BP 129/65; PULSE 78; RESP 18
[2019-05-12] MEDS ORDERED: QUETIAPINE 25 MG TAB PO SCH (12:00)
[2019-05-12] MEDS ORDERED: LORAZEPAM 1 MG TAB PO PRN (12:30)
--- NOTE | 2019-05-12 12:53 | CONS ---
Assessment/Plan Assessment/Plan Hospital Course (Demo Recall) Chest pain, resolved Preserved left ventricular ejection fraction Hypertension Likely COPD Denies any further chest pain or shortness of breath Serial cardiac enzymes remain negative, echocardiogram with preserved left ventricular ejection fraction Blood pressure trend improved No further inpatient cardiac work-up needed at the current time DC planning Consultation Date/Type/Reason Admit Date/Time May 10, 2019 at 13:41 Initial Consult Date Type of Consult Cardiology Date/Time of Note DATE: 05/12/19 TIME: 12:52 24 HR Interval Summary Free Text/Dictation No chest pain, shortness of breath Exam/Review of Systems Vital Signs Vitals Vital Signs Date Temp Pulse Resp B/P (MAP) Pulse Ox O2 O2 Flow FiO2 Time Delivery Rate 05/12/19 98.2 78 18 129/65 97 Room Air 11:12 (86) Intake and Output 05/11/19 05/11/19 05/12/19 1515:00 23:00 07:00 IntakeIntake Total 850 ml 250 ml OutputOutput Total 350 ml 650 ml 700 ml BalanceBalance -350 ml 200 ml -450 ml Exam Constitutional: alert (Following commands, speaking with social research assistant) Head: normocephalic Respiratory: other (Coarse breath sounds bilaterally, no wheezing) Cardiovascular: regular rate and rhythm (S1-S2 heard) Gastrointestinal: soft, non-tender, bowel sounds Extremities: edema (Trace) Labs Result Diagram: 05/11/1914 05/11/1914 Medications Medications Current Medications Metoprolol Tartrate (Lopressor) 25 mg BID PO Last administered on 05/12/19at 09:04; Admin Dose 25 MG; Start 05/10/19 at 21:00 Montelukast Sodium (Singulair) 1 mg DAILY PO Last administered on 05/12/19at 09:06; Admin Dose 1 MG; Start 05/11/19 at 09:00 Tiotropium [place] (Spiriva) 1 inh DAILY INH Last administered on 05/12/19at 09:05; Admin Dose 1 INH; Start 05/11/19 at 09:00 Fluticasone/ Vilanterol (Breo Ellipta 200-25 Mcg Inh) 1 inh DAILY INH Last administered on 05/12/19at 09:16; Admin Dose 1 INH; Start 05/11/19 at 09:00 IV Flush (NS 3 ml) 3 ml PER PROTOCOL IV ; Start 05/10/19 at 14:00 Ondansetron HCl (Zofran Inj) 4 mg Q6H PRN IV NAUSEA/VOMITING; Start 05/10/19 at 14:00 Aspirin (Aspirin) 81 mg DAILY PO Last administered on 05/12/19at 09:01; Admin Dose 81 MG; Start 05/11/19 at 09:00 Nitroglycerin (Nitroglycerin (Sl Tab) 0.4 Mg) 1 tab Q5M PRN SL .CHEST PAIN; Start 05/10/19 at 14:00 Acetaminophen (Tylenol Tab) 650 mg Q6H PRN PO .PAIN 1-3 OR TEMP; Start 05/10/19 at 14:00 Docusate Sodium (Colace) 100 mg Q12H PRN PO .CONSTIPATION; Start 05/10/19 at 14:00 Magnesium Hydroxide (Milk Of Mag) 30 ml DAILY PRN PO .CONSTIPATION; Start 05/10/19 at 14:00 Pantoprazole (Protonix Tab) 40 mg DAILY@06 PO Last administered on 05/12/19at 05:58; Admin Dose 40 MG; Start 05/11/19 at 06:00 Heparin Sodium (Porcine) (Heparin (5000 Units/1ml)) 5,000 unit Q8 SC Last administered on 05/11/19at 21:53; Admin Dose 5,000 UNIT; Start 05/10/19 at 14:00 Calcium Carbonate (Tums) 500 mg QID PRN PO indigestion; Start 05/10/19 at 14:00 Hydralazine HCl (Apresoline) 10 mg Q4H PRN IV SBP >170 Last administered on 05/11/19at 11:39; Admin Dose 10 MG; Start 05/10/19 at 14:00 Albuterol (Proventil 0.083% (Neb)) 2.5 mg Q2H RESP THERAPY PRN HHN SHORTNESS OF BREATH; Start 05/10/19 at 15:00 Amlodipine Besylate (Norvasc) 5 mg BID PO Last administered on 05/12/19at 09:05; Admin Dose 5 MG; Start 05/10/19 at 21:00 Hydrochlorothiazide (Hydrochlorothiazide) 12.5 mg DAILY PO Last administered on 05/12/19at 09:03; Admin Dose 12.5 MG; Start 05/10/19 at 17:00 Losartan Potassium (Cozaar) 25 mg BID PO Last administered on 05/12/19at 09:03; Admin Dose 25 MG; Start 05/10/19 at 21:00 Quetiapine Fumarate (Seroquel) 25 mg BID PO ; Start 05/12/19 at 12:00 Bao Garza DO May 12, 2019 12:53
[2019-05-12 15:06] VITALS: BP 148/88; PULSE 88; RESP 18
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
[2019-05-12] MEDS: THIAMINE 100 MG TAB PO SCH (16:24)
[2019-05-12] MEDS: FOLIC ACID 1 MG TAB PO SCH (16:24)
[2019-05-12 19:49] VITALS: BP 118/52; PULSE 91; RESP 18
[2019-05-12] MEDS: ATORVASTATIN 20 MG TAB PO SCH (21:02)
[2019-05-12] MEDS: CHLORDIAZEPOXIDE 25 MG CAP PO SCH (21:02)
[2019-05-13 00:14] VITALS: BP 127/44; PULSE 82; RESP 18
[2019-05-13 04:04] VITALS: BP 138/65; PULSE 79; RESP 18
[2019-05-13] MEDS: PANTOPRAZOLE (EC) 40 MG TAB PO SCH (06:29)
[2019-05-13 07:11] VITALS: BP 122/74; PULSE 81; RESP 16
[2019-05-13] MEDS: HEPARIN 5,000 UNIT/1 ML VIAL SC SCH ×3 (07:42→21:57)
[2019-05-13] MEDS: FLUTICASONE/VILANTEROL 200-25 INH DEVICE INH SCH (09:03)
[2019-05-13] MEDS: TIOTROPIUM 18 MCG CAPSULE INHA DEV INH SCH (09:03)
[2019-05-13] MEDS: CHLORDIAZEPOXIDE 25 MG CAP PO SCH ×3 (09:04→21:54)
[2019-05-13] MEDS: FOLIC ACID 1 MG TAB PO SCH (09:04)
[2019-05-13] MEDS: ASPIRIN 81 MG TAB PO SCH (09:04)
[2019-05-13] MEDS: MONTELUKAST 10 MG TAB PO SCH (09:06)
[2019-05-13] MEDS: THIAMINE 100 MG TAB PO SCH (09:06)
[2019-05-13] MEDS: AMLODIPINE 5 MG TAB PO SCH ×2 (09:07→21:00)
[2019-05-13] MEDS: LOSARTAN 25 MG TAB PO SCH ×2 (09:07→21:55)
[2019-05-13] MEDS: HYDROCHLOROTHIAZIDE 12.5 MG CAP PO SCH (09:07)
[2019-05-13] MEDS: METOPROLOL 25 MG TAB PO SCH ×2 (09:07→21:55)
[2019-05-13] MEDS: CLOPIDOGREL 75 MG TAB PO SCH (10:06)
[2019-05-13 10:57] VITALS: BP 132/72; PULSE 60; RESP 16
[2019-05-13 15:17] VITALS: BP 109/56; PULSE 67; RESP 17
--- NOTE | 2019-05-13 16:31 | PN ---
Date/Time of Note Date/Time of Note DATE: 05/13/19 TIME: 16:27 Assessment/Plan VTE Prophylaxis Risk score (from [facility])>0 risk: 3 SCD applied (from [facility]): No SCD contraindicated: low risk/ambulating Pharmacological prophylaxis: NA/contraindicated Pharm contraindication: low risk/ambulating Lines/Catheters IV Catheter Type (from [facility] Saline Lock Urinary Cath still in place: No Assessment/Plan Assessment/Plan 1. Acute atypical chest pain- resolved - ACS ruled out - serial trops negative and ECHO without structural abnormalities - Cardiology consultation appreciated and cleared for discharge home - most likely stress related - nitro, O2 PRN - lipid panel within normal limits with no need for statin 2. HTN - continue home medications 3. Environmental allergies - continue Singulair 4. h/o tobacco abuse - continue Spiriva - Neb PRN 5. Mild cognitive impairment - Neurology consultation appreciated. Imaging studies noted with no acute findings - CM and SW on board given patient may not be safe to discharge home without making arrangements for a caregiver or assisted living facility 6. Disposition - Patient remains medically stable but due to confusion, is not safe for discharge home alone. CM on board assisting with discharge planning Result Diagram: 05/13/19 0634 05/13/19 0634 Results 24hrs Laboratory Tests Test 05/13/19 06:34 White Blood Count 7.4 # Red Blood Count 4.62 L Hemoglobin 14.0 Hematocrit 42.3 Mean Corpuscular Volume 91.6 Mean Corpuscular Hemoglobin 30.3 Mean Corpuscular Hemoglobin Concent 33.1 Red Cell Distribution Width 14.0 Platelet Count 268 Mean Platelet Volume 9.8 Immature Granulocytes % 0.300 Neutrophils % 71.1 Lymphocytes % 14.2 L Monocytes % 10.1 Eosinophils % 3.8 Basophils % 0.5 Nucleated Red Blood Cells % 0.0 Immature Granulocytes # 0.020 Neutrophils # 5.3 Lymphocytes # 1.1 Monocytes # 0.8 Eosinophils # 0.3 Basophils # 0.0 Nucleated Red Blood Cells # 0.0 Sodium Level 136 Potassium Level 4.1 Chloride Level 99 Carbon Dioxide Level 31 Anion Gap 6 Blood Urea Nitrogen 25 #H Creatinine 0.87 Glucose Level 127 Calcium Level 9.6 Phosphorus Level 4.2 Magnesium Level 2.1 Albumin 3.5 Subjective 24 Hr Interval Summary Free Text/Dictation Patient states hes feeling significantly better and understands he is still in the hospital given concerns for his safety alone at home. No acute overnight events. Exam/Review of Systems Exam Vitals Vital Signs Date Temp Pulse Resp B/P (MAP) Pulse Ox O2 O2 Flow FiO2 Time Delivery Rate 05/13/19 98.4 67 17 109/56 97 15:17 (73) 05/13/19 Room Air 10:57 Intake and Output 05/12/19 05/12/19 05/13/19 1515:00 23:00 07:00 IntakeIntake Total 570 ml 380 ml 150 ml BalanceBalance 570 ml 380 ml 150 ml Exam General: Patient is sitting upright in bed, no acute distress Mentation: alert and oriented x3 Neck: Supple Chest: nontender Lungs: Diminished breath sounds, nonlabored breathing, no wheezing or rhonchi appreciated Heart: Normal S1-S2, Regular rhythm and rate. No murmur, S3, or S4 Abdomen: Soft , nontender, nondistended , bowel sounds are present. Extremities: Normal to inspection, no edema no cyanosis Results Results 24hrs Laboratory Tests Test 05/13/19 06:34 White Blood Count 7.4 # Red Blood Count 4.62 L Hemoglobin 14.0 Hematocrit 42.3 Mean Corpuscular Volume 91.6 Mean Corpuscular Hemoglobin 30.3 Mean Corpuscular Hemoglobin Concent 33.1 Red Cell Distribution Width 14.0 Platelet Count 268 Mean Platelet Volume 9.8 Immature Granulocytes % 0.300 Neutrophils % 71.1 Lymphocytes % 14.2 L Monocytes % 10.1 Eosinophils % 3.8 Basophils % 0.5 Nucleated Red Blood Cells % 0.0 Immature Granulocytes # 0.020 Neutrophils # 5.3 Lymphocytes # 1.1 Monocytes # 0.8 Eosinophils # 0.3 Basophils # 0.0 Nucleated Red Blood Cells # 0.0 Sodium Level 136 Potassium Level 4.1 Chloride Level 99 Carbon Dioxide Level 31 Anion Gap 6 Blood Urea Nitrogen 25 #H Creatinine 0.87 Glucose Level 127 Calcium Level 9.6 Phosphorus Level 4.2 Magnesium Level 2.1 Albumin 3.5 Medications Medication Current Medications Metoprolol Tartrate (Lopressor) 25 mg BID PO Last administered on 05/13/19at 09:07; Admin Dose 25 MG; Start 05/10/19 at 21:00 Montelukast Sodium (Singulair) 1 mg DAILY PO Last administered on 05/13/19at 09:06; Admin Dose 1 MG; Start 05/11/19 at 09:00 Tiotropium [place] (Spiriva) 1 inh DAILY INH Last administered on 05/13/19 09:03; Admin Dose 1 INH; Start 05/11/19 at 09:00 Fluticasone/ Vilanterol (Breo Ellipta 200-25 Mcg Inh) 1 inh DAILY INH Last administered on 05/13/19at 09:03; Admin Dose 1 INH; Start 05/11/19 at 09:00 IV Flush (NS 3 ml) 3 ml PER PROTOCOL IV ; Start 05/10/19 at 14:00 Ondansetron HCl (Zofran Inj) 4 mg Q6H PRN IV NAUSEA/VOMITING; Start 05/10/19 at 14:00 Aspirin (Aspirin) 81 mg DAILY PO Last administered on 05/13/19at 09:04; Admin Dose 81 MG; Start 05/11/19 at 09:00 Nitroglycerin (Nitroglycerin (Sl Tab) 0.4 Mg) 1 tab Q5M PRN SL .CHEST PAIN; Start 05/10/19 at 14:00 Acetaminophen (Tylenol Tab) 650 mg Q6H PRN PO .PAIN 1-3 OR TEMP; Start 05/10/19 at 14:00 Docusate Sodium (Colace) 100 mg Q12H PRN PO .CONSTIPATION; Start 05/10/19 at 14:00 Magnesium Hydroxide (Milk Of Mag) 30 ml DAILY PRN PO .CONSTIPATION; Start 05/10/19 at 14:00 Pantoprazole (Protonix Tab) 40 mg DAILY@06 PO Last administered on 05/13/19at 06:29; Admin Dose 40 MG; Start 05/11/19 at 06:00 Heparin Sodium (Porcine) (Heparin (5000 Units/1ml)) 5,000 unit Q8 SC Last administered on 05/13/19at 13:31; Admin Dose 5,000 UNIT; Start 05/10/19 at 14:00 Calcium Carbonate (Tums) 500 mg QID PRN PO indigestion; Start 05/10/19 at 14:00 Hydralazine HCl (Apresoline) 10 mg Q4H PRN IV SBP >170 Last administered on 05/11/19at 11:39; Admin Dose 10 MG; Start 05/10/19 at 14:00 Albuterol (Proventil 0.083% (Neb)) 2.5 mg Q2H RESP THERAPY PRN HHN SHORTNESS OF BREATH; Start 05/10/19 at 15:00 Amlodipine Besylate (Norvasc) 5 mg BID PO Last administered on 05/13/19 09:07; Admin Dose 5 MG; Start 05/10/19 at 21:00 Hydrochlorothiazide (Hydrochlorothiazide) 12.5 mg DAILY PO Last administered on 05/13/19 09:07; Admin Dose 12.5 MG; Start 05/10/19 at 17:00 Losartan Potassium (Cozaar) 25 mg BID PO Last administered on 05/13/19 09:07; Admin Dose 25 MG; Start 05/10/19 at 21:00 Atorvastatin Calcium (Lipitor) 20 mg HS PO Last administered on 05/12/19 21:02; Admin Dose 20 MG; Start 05/12/19 at 21:00 Thiamine HCl (Vitamin B1) 100 mg DAILY PO Last administered on 05/13/19 09:06; Admin Dose 100 MG; Start 05/12/19 at 16:00 Folic Acid (Folic Acid) 1 mg DAILY PO Last administered on 05/13/19 09:04; Admin Dose 1 MG; Start 05/12/19 at 16:00 Chlordiazepoxide (Librium) 25 mg TID PO Last administered on 05/13/19 13:27; Admin Dose 25 MG; Start 05/12/19 at 21:00 Clopidogrel Bisulfate (plaVIX) 75 mg DAILY PO Last administered on 05/13/19 10:06; Admin Dose 75 MG; Start 05/13/19 at 10:00 SOFIA AYOUB MD May 13, 2019 16:31
[2019-05-13 20:03] VITALS: BP 113/54; PULSE 71; RESP 16
[2019-05-13] MEDS: ATORVASTATIN 20 MG TAB PO SCH (21:54)
[2019-05-14 01:58] VITALS: BP 132/62; PULSE 63; RESP 18
[2019-05-14] MEDS: PANTOPRAZOLE (EC) 40 MG TAB PO SCH (05:38)
[2019-05-14] MEDS: HEPARIN 5,000 UNIT/1 ML VIAL SC SCH ×3 (05:40→22:14)
[2019-05-14 07:35] VITALS: BP 150/65; PULSE 59; RESP 18
[2019-05-14] MEDS: FLUTICASONE/VILANTEROL 200-25 INH DEVICE INH SCH (09:11)
[2019-05-14] MEDS: METOPROLOL 25 MG TAB PO SCH ×2 (09:12→20:01)
[2019-05-14] MEDS: ASPIRIN 81 MG TAB PO SCH (09:12)
[2019-05-14] MEDS: CHLORDIAZEPOXIDE 25 MG CAP PO SCH ×3 (09:12→20:00)
[2019-05-14] MEDS: FOLIC ACID 1 MG TAB PO SCH (09:12)
[2019-05-14] MEDS: TIOTROPIUM 18 MCG CAPSULE INHA DEV INH SCH (09:12)
[2019-05-14] MEDS: CLOPIDOGREL 75 MG TAB PO SCH (09:12)
[2019-05-14] MEDS: HYDROCHLOROTHIAZIDE 12.5 MG CAP PO SCH (09:13)
[2019-05-14] MEDS: MONTELUKAST 10 MG TAB PO SCH (09:13)
[2019-05-14] MEDS: THIAMINE 100 MG TAB PO SCH (09:13)
[2019-05-14] MEDS: LOSARTAN 25 MG TAB PO SCH ×2 (09:14→20:00)
[2019-05-14] MEDS: AMLODIPINE 5 MG TAB PO SCH ×2 (09:14→20:01)
--- NOTE | 2019-05-14 10:11 | PN ---
Date/Time of Note Date/Time of Note DATE: 05/14/19 TIME: 10:07 Assessment/Plan VTE Prophylaxis Risk score (from [facility])>0 risk: 3 SCD applied (from [facility]): No SCD contraindicated: other Pharmacological prophylaxis: NA/contraindicated Pharm contraindication: low risk/ambulating Lines/Catheters IV Catheter Type (from [facility]): Saline Lock Urinary Cath still in place: No Assessment/Plan Assessment/Plan 1. Acute atypical chest pain- resolved - ACS ruled out - serial trops negative and ECHO without structural abnormalities - Cardiology consultation appreciated and cleared for discharge home - most likely stress related - nitro, O2 PRN 2. HTN - continue home medications 3. Environmental allergies - continue Singulair 4. h/o tobacco abuse - continue Spiriva - Neb PRN 5. Mild cognitive impairment - Neurology consultation appreciated. Imaging studies noted with no acute findings. Most likely chronic encephalopathy with acute exacerbation and recommending discharge as soon as possible to avoid development of [facility] - CM and SW on board given patient may not be safe to discharge home without making arrangements for a caregiver, assisted living facility, or SNF 6. Mild Carotid stenosis, R ICA - will continue on aspirin and statin 7. Disposition - Patient remains medically stable but due to confusion, is not safe for discharge home alone. CM on board assisting with discharge planning Result Diagram: 05/14/1952605/14/19526 Results 24hrs Laboratory Tests Test 05/14/19 05:27 White Blood Count 5.9 # Red Blood Count 4.62 L Hemoglobin 14.1 Hematocrit 43.8 Mean Corpuscular Volume 94.8 Mean Corpuscular Hemoglobin 30.5 Mean Corpuscular Hemoglobin Concent 32.2 Red Cell Distribution Width 14.1 Platelet Count 261 Mean Platelet Volume 10.0 Immature Granulocytes % 0.500 H Neutrophils % 68.1 Lymphocytes % 15.2 Monocytes % 10.1 Eosinophils % 5.4 Basophils % 0.7 Nucleated Red Blood Cells % 0.0 Immature Granulocytes # 0.030 Neutrophils # 4.1 Lymphocytes # 0.9 Monocytes # 0.6 Eosinophils # 0.3 Basophils # 0.0 Nucleated Red Blood Cells # 0.0 Sodium Level 135 Potassium Level 4.2 Chloride Level 99 Carbon Dioxide Level 31 Anion Gap 5 Blood Urea Nitrogen 26 H Creatinine 0.80 Glucose Level 137 Calcium Level 9.6 Phosphorus Level 3.8 Magnesium Level 2.0 Albumin 3.4 Subjective 24 Hr Interval Summary Free Text/Dictation Patient states hes feeling better and asking for more sausage and water this am. Discussed concerned about going home alone given his neighbors said he has been more confused and home was found disheveled, Exam/Review of Systems Exam Vitals Vital Signs Date Temp Pulse Resp B/P (MAP) Pulse Ox O2 O2 Flow FiO2 Time Delivery Rate 05/14/19 97.7 59 18 150/65 95 Room Air 07:35 (93) Intake and Output 05/13/19 05/13/19 05/14/19 1515:00 23:00 07:00 IntakeIntake Total 750 ml 1040 ml OutputOutput Total 400 ml 400 ml BalanceBalance 750 ml 640 ml -400 ml Exam General: Patient is sitting upright in bed, no acute distress Mentation: alert and oriented x3 Chest: nontender Lungs: Diminished breath sounds, nonlabored breathing, no wheezing or rhonchi appreciated Heart: Normal S1-S2, Regular rhythm and rate. No murmur, S3, or S4 Abdomen: Soft , nontender, nondistended , bowel sounds are present. Extremities: Normal to inspection, no edema no cyanosis Results Results 24hrs Laboratory Tests Test 05/14/19 05:27 White Blood Count 5.9 # Red Blood Count 4.62 L Hemoglobin 14.1 Hematocrit 43.8 Mean Corpuscular Volume 94.8 Mean Corpuscular Hemoglobin 30.5 Mean Corpuscular Hemoglobin Concent 32.2 Red Cell Distribution Width 14.1 Platelet Count 261 Mean Platelet Volume 10.0 Immature Granulocytes % 0.500 H Neutrophils % 68.1 Lymphocytes % 15.2 Monocytes % 10.1 Eosinophils % 5.4 Basophils % 0.7 Nucleated Red Blood Cells % 0.0 Immature Granulocytes # 0.030 Neutrophils # 4.1 Lymphocytes # 0.9 Monocytes # 0.6 Eosinophils # 0.3 Basophils # 0.0 Nucleated Red Blood Cells # 0.0 Sodium Level 135 Potassium Level 4.2 Chloride Level 99 Carbon Dioxide Level 31 Anion Gap 5 Blood Urea Nitrogen 26 H Creatinine 0.80 Glucose Level 137 Calcium Level 9.6 Phosphorus Level 3.8 Magnesium Level 2.0 Albumin 3.4 Medications Medication Current Medications Metoprolol Tartrate (Lopressor) 25 mg BID PO Last administered on 05/14/19at 09:12; Admin Dose 25 MG; Start 05/10/19 at 21:00 Montelukast Sodium (Singulair) 1 mg DAILY PO Last administered on 05/14/19at 09:13; Admin Dose 1 MG; Start 05/11/19 at 09:00 Tiotropium [place] (Spiriva) 1 inh DAILY INH Last administered on 05/14/19at 09:12; Admin Dose 1 INH; Start 05/11/19 at 09:00 Fluticasone/ Vilanterol (Breo Ellipta 200-25 Mcg Inh) 1 inh DAILY INH Last administered on 05/14/19at 09:11; Admin Dose 1 INH; Start 05/11/19 at 09:00 IV Flush (NS 3 ml) 3 ml PER PROTOCOL IV ; Start 05/10/19 at 14:00 Ondansetron HCl (Zofran Inj) 4 mg Q6H PRN IV NAUSEA/VOMITING; Start 05/10/19 at 14:00 Aspirin (Aspirin) 81 mg DAILY PO Last administered on 05/14/19at 09:12; Admin Dose 81 MG; Start 05/11/19 at 09:00 Nitroglycerin (Nitroglycerin (Sl Tab) 0.4 Mg) 1 tab Q5M PRN SL .CHEST PAIN; Start 05/10/19 at 14:00 Acetaminophen (Tylenol Tab) 650 mg Q6H PRN PO .PAIN 1-3 OR TEMP; Start 05/10/19 at 14:00 Docusate Sodium (Colace) 100 mg Q12H PRN PO .CONSTIPATION; Start 05/10/19 at 14:00 Magnesium Hydroxide (Milk Of Mag) 30 ml DAILY PRN PO .CONSTIPATION; Start 05/10/19 at 14:00 Pantoprazole (Protonix Tab) 40 mg DAILY@06 PO Last administered on 05/14/19at 05:38; Admin Dose 40 MG; Start 05/11/19 at 06:00 Heparin Sodium (Porcine) (Heparin (5000 Units/1ml)) 5,000 unit Q8 SC Last administered on 05/14/19at 05:40; Admin Dose 5,000 UNIT; Start 05/10/19 at 14:00 Calcium Carbonate (Tums) 500 mg QID PRN PO indigestion; Start 05/10/19 at 14:00 Hydralazine HCl (Apresoline) 10 mg Q4H PRN IV SBP >170 Last administered on 05/11/19 11:39; Admin Dose 10 MG; Start 05/10/19 at 14:00 Albuterol (Proventil 0.083% (Neb)) 2.5 mg Q2H RESP THERAPY PRN HHN SHORTNESS OF BREATH; Start 05/10/19 at 15:00 Amlodipine Besylate (Norvasc) 5 mg BID PO Last administered on 05/14/19 09:14; Admin Dose 5 MG; Start 05/10/19 at 21:00 Hydrochlorothiazide (Hydrochlorothiazide) 12.5 mg DAILY PO Last administered on 05/14/19 09:13; Admin Dose 12.5 MG; Start 05/10/19 at 17:00 Losartan Potassium (Cozaar) 25 mg BID PO Last administered on 05/14/19 09:14; Admin Dose 25 MG; Start 05/10/19 at 21:00 Atorvastatin Calcium (Lipitor) 20 mg HS PO Last administered on 05/13/19 21:54; Admin Dose 20 MG; Start 05/12/19 at 21:00 Thiamine HCl (Vitamin B1) 100 mg DAILY PO Last administered on 05/14/19 09:13; Admin Dose 100 MG; Start 05/12/19 at 16:00 Folic Acid (Folic Acid) 1 mg DAILY PO Last administered on 05/14/19 09:12; Admin Dose 1 MG; Start 05/12/19 at 16:00 Chlordiazepoxide (Librium) 25 mg TID PO Last administered on 05/14/19 09:12; Admin Dose 25 MG; Start 05/12/19 at 21:00 Clopidogrel Bisulfate (plaVIX) 75 mg DAILY PO Last administered on 05/14/19 09:12; Admin Dose 75 MG; Start 05/13/19 at 10:00 SOFIA AYOUB MD May 14, 2019 10:11
--- NOTE | 2019-05-14 14:03 | CONS ---
Assessment/Plan Assessment/Plan Assessment/Plan (Recall) 84 M c/ reported HTN...who initially presented for evaluation of atypical chest pain. Was noted on 05/11 in the evening to become acutely and transiently confused, for which neurology is consulted.. He endorses habitual ETOH use, which raises concern for mild withdrawal.. Of note, on neurologic examination, he does exhibit some impairment in delayed recall..which could certainly underlay a chronic mild cognitive impairment.. Acute decompensation of the above in the context of hospitalization is additionally considered.. MRI brain is without obvious acute intracranial pathology...but is notable for significant atrophy, greater than expected for advanced age...as well as chronic lacunes and significant small vessel disease. LDL 88 TSH, B12 OK UA neg P: Cont asa/lipitor daily for secondary stroke prevention [place] as necessary Limit sedating mediations where possible Physical activity as tolerated Other management and supportive care per primary Will follow clinically Consultation Date/Type/Reason Admit Date/Time May 12, 2019 at 12:42 Type of Consult Neurology Reason for Consultation ams Requesting Provider: SOFIA AYOUB MD Date/Time of Note DATE: 05/14/19 TIME: 14:00 24 HR Interval Summary Free Text/Dictation s/p MRI brain Exam/Review of Systems Exam Vitals Vital Signs Date Temp Pulse Resp B/P (MAP) Pulse Ox O2 O2 Flow FiO2 Time Delivery Rate 05/14/19 97.7 59 18 150/65 95 Room Air 07:35 (93) Intake and Output 05/13/19 05/13/19 05/14/19 1515:00 23:00 07:00 IntakeIntake Total 750 ml 1040 ml OutputOutput Total 400 ml 400 ml BalanceBalance 750 ml 640 ml -400 ml Results Result Diagram: 05/14/19 0527 05/14/19 0527 Results 24hrs Laboratory Tests Test 05/14/19 05:27 White Blood Count 5.9 # Red Blood Count 4.62 L Hemoglobin 14.1 Hematocrit 43.8 Mean Corpuscular Volume 94.8 Mean Corpuscular Hemoglobin 30.5 Mean Corpuscular Hemoglobin Concent 32.2 Red Cell Distribution Width 14.1 Platelet Count 261 Mean Platelet Volume 10.0 Immature Granulocytes % 0.500 H Neutrophils % 68.1 Lymphocytes % 15.2 Monocytes % 10.1 Eosinophils % 5.4 Basophils % 0.7 Nucleated Red Blood Cells % 0.0 Immature Granulocytes # 0.030 Neutrophils # 4.1 Lymphocytes # 0.9 Monocytes # 0.6 Eosinophils # 0.3 Basophils # 0.0 Nucleated Red Blood Cells # 0.0 Sodium Level 135 Potassium Level 4.2 Chloride Level 99 Carbon Dioxide Level 31 Anion Gap 5 Blood Urea Nitrogen 26 H Creatinine 0.80 Glucose Level 137 Calcium Level 9.6 Phosphorus Level 3.8 Magnesium Level 2.0 Albumin 3.4 Medications Medication Current Medications Metoprolol Tartrate (Lopressor) 25 mg BID PO Last administered on 05/14/19 09:12; Admin Dose 25 MG; Start 05/10/19 at 21:00 Montelukast Sodium (Singulair) 1 mg DAILY PO Last administered on 05/14/19 09:13; Admin Dose 1 MG; Start 05/11/19 at 09:00 Tiotropium [place] (Spiriva) 1 inh DAILY INH Last administered on 05/14/19at 09:12; Admin Dose 1 INH; Start 05/11/19 at 09:00 Fluticasone/ Vilanterol (Breo Ellipta 200-25 Mcg Inh) 1 inh DAILY INH Last administered on 05/14/19 09:11; Admin Dose 1 INH; Start 05/11/19 at 09:00 IV Flush (NS 3 ml) 3 ml PER PROTOCOL IV ; Start 05/10/19 at 14:00 Ondansetron HCl (Zofran Inj) 4 mg Q6H PRN IV NAUSEA/VOMITING; Start 05/10/19 at 14:00 Aspirin (Aspirin) 81 mg DAILY PO Last administered on 05/14/19at 09:12; Admin Dose 81 MG; Start 05/11/19 at 09:00 Nitroglycerin (Nitroglycerin (Sl Tab) 0.4 Mg) 1 tab Q5M PRN SL .CHEST PAIN; Start 05/10/19 at 14:00 Acetaminophen (Tylenol Tab) 650 mg Q6H PRN PO .PAIN 1-3 OR TEMP; Start 05/10/19 at 14:00 Docusate Sodium (Colace) 100 mg Q12H PRN PO .CONSTIPATION; Start 05/10/19 at 14:00 Magnesium Hydroxide (Milk Of Mag) 30 ml DAILY PRN PO .CONSTIPATION; Start 05/10/19 at 14:00 Pantoprazole (Protonix Tab) 40 mg DAILY@06 PO Last administered on 05/14/19 05:38; Admin Dose 40 MG; Start 05/11/19 at 06:00 Heparin Sodium (Porcine) (Heparin (5000 Units/1ml)) 5,000 unit Q8 SC Last administered on 05/14/19 05:40; Admin Dose 5,000 UNIT; Start 05/10/19 at 14:00 Calcium Carbonate (Tums) 500 mg QID PRN PO indigestion; Start 05/10/19 at 14:00 Hydralazine HCl (Apresoline) 10 mg Q4H PRN IV SBP >170 Last administered on 05/11/19 11:39; Admin Dose 10 MG; Start 05/10/19 at 14:00 Albuterol (Proventil 0.083% (Neb)) 2.5 mg Q2H RESP THERAPY PRN HHN SHORTNESS OF BREATH; Start 05/10/19 at 15:00 Amlodipine Besylate (Norvasc) 5 mg BID PO Last administered on 05/14/19 09:14; Admin Dose 5 MG; Start 05/10/19 at 21:00 Hydrochlorothiazide (Hydrochlorothiazide) 12.5 mg DAILY PO Last administered on 05/14/19 09:13; Admin Dose 12.5 MG; Start 05/10/19 at 17:00 Losartan Potassium (Cozaar) 25 mg BID PO Last administered on 05/14/19 09:14; Admin Dose 25 MG; Start 05/10/19 at 21:00 Atorvastatin Calcium (Lipitor) 20 mg HS PO Last administered on 05/13/19 21:54; Admin Dose 20 MG; Start 05/12/19 at 21:00 Thiamine HCl (Vitamin B1) 100 mg DAILY PO Last administered on 05/14/19 09:13; Admin Dose 100 MG; Start 05/12/19 at 16:00 Folic Acid (Folic Acid) 1 mg DAILY PO Last administered on 05/14/19 09:12; Admin Dose 1 MG; Start 05/12/19 at 16:00 Chlordiazepoxide (Librium) 25 mg TID PO Last administered on 05/14/19 09:12; Admin Dose 25 MG; Start 05/12/19 at 21:00 Clopidogrel Bisulfate (plaVIX) 75 mg DAILY PO Last administered on 7/14/19at 09:12; Admin Dose 75 MG; Start 05/13/19 at 10:00 LUKAS SIMS May 14, 2019 14:03
[2019-05-14 14:30] VITALS: BP 135/63; PULSE 66; RESP 16
[2019-05-14 19:15] VITALS: BP 152/67; PULSE 79; RESP 18
[2019-05-14] MEDS: ATORVASTATIN 20 MG TAB PO SCH (20:02)
[2019-05-15 01:26] VITALS: BP 110/53; PULSE 61; RESP 16
[2019-05-15] MEDS: PANTOPRAZOLE (EC) 40 MG TAB PO SCH (05:52)
[2019-05-15] MEDS: HEPARIN 5,000 UNIT/1 ML VIAL SC SCH ×3 (05:55→21:38)
[2019-05-15 07:20] VITALS: BP 128/60; PULSE 60; RESP 18
[2019-05-15] MEDS: FLUTICASONE/VILANTEROL 200-25 INH DEVICE INH SCH (09:04)
[2019-05-15] MEDS: FOLIC ACID 1 MG TAB PO SCH (09:05)
[2019-05-15] MEDS: ASPIRIN 81 MG TAB PO SCH (09:05)
[2019-05-15] MEDS: METOPROLOL 25 MG TAB PO SCH ×2 (09:05→21:36)
[2019-05-15] MEDS: TIOTROPIUM 18 MCG CAPSULE INHA DEV INH SCH (09:05)
[2019-05-15] MEDS: CLOPIDOGREL 75 MG TAB PO SCH (09:05)
[2019-05-15] MEDS: CHLORDIAZEPOXIDE 25 MG CAP PO SCH ×3 (09:05→21:35)
[2019-05-15] MEDS: THIAMINE 100 MG TAB PO SCH (09:06)
[2019-05-15] MEDS: AMLODIPINE 5 MG TAB PO SCH ×2 (09:06→21:36)
[2019-05-15] MEDS: LOSARTAN 25 MG TAB PO SCH ×2 (09:06→21:37)
[2019-05-15] MEDS: MONTELUKAST 10 MG TAB PO SCH (09:06)
[2019-05-15] MEDS: HYDROCHLOROTHIAZIDE 12.5 MG CAP PO SCH (09:07)
--- NOTE | 2019-05-15 12:18 | PN ---
Date/Time of Note Date/Time of Note DATE: 05/15/19 TIME: 12:18 Objective Vitals Vital Signs Date Temp Pulse Resp B/P (MAP) Pulse Ox O2 O2 Flow FiO2 Time Delivery Rate 05/15/19 97.5 60 18 128/60 94 Room Air 07:20 (82) Intake and Output 05/14/19 05/14/19 05/15/19 1515:00 23:00 07:00 IntakeIntake Total 600 ml 240 ml OutputOutput Total 600 ml 200 ml 600 ml BalanceBalance 0 ml 40 ml -600 ml Results Result Diagram: 05/15/1971605/15/19716 Medications Medications Current Medications Metoprolol Tartrate (Lopressor) 25 mg BID PO Last administered on 05/15/19at 09:05; Admin Dose 25 MG; Start 05/10/19 at 21:00 Montelukast Sodium (Singulair) 1 mg DAILY PO Last administered on 05/15/19at 09:06; Admin Dose 1 MG; Start 05/11/19 at 09:00 Tiotropium [place] (Spiriva) 1 inh DAILY INH Last administered on 05/15/19at 09:05; Admin Dose 1 INH; Start 05/11/19 at 09:00 Fluticasone/ Vilanterol (Breo Ellipta 200-25 Mcg Inh) 1 inh DAILY INH Last administered on 05/15/19at 09:04; Admin Dose 1 INH; Start 05/11/19 at 09:00 IV Flush (NS 3 ml) 3 ml PER PROTOCOL IV ; Start 05/10/19 at 14:00 Ondansetron HCl (Zofran Inj) 4 mg Q6H PRN IV NAUSEA/VOMITING; Start 05/10/19 at 14:00 Aspirin (Aspirin) 81 mg DAILY PO Last administered on 05/15/19at 09:05; Admin Dose 81 MG; Start 05/11/19 at 09:00 Nitroglycerin (Nitroglycerin (Sl Tab) 0.4 Mg) 1 tab Q5M PRN SL .CHEST PAIN; Start 05/10/19 at 14:00 Acetaminophen (Tylenol Tab) 650 mg Q6H PRN PO .PAIN 1-3 OR TEMP; Start 05/10/19 at 14:00 Docusate Sodium (Colace) 100 mg Q12H PRN PO .CONSTIPATION; Start 05/10/19 at 14:00 Magnesium Hydroxide (Milk Of Mag) 30 ml DAILY PRN PO .CONSTIPATION; Start 05/10/19 at 14:00 Pantoprazole (Protonix Tab) 40 mg DAILY@06 PO Last administered on 05/15/19 05:52; Admin Dose 40 MG; Start 05/11/19 at 06:00 Heparin Sodium (Porcine) (Heparin (5000 Units/1ml)) 5,000 unit Q8 SC Last administered on 05/15/19 05:55; Admin Dose 5,000 UNIT; Start 05/10/19 at 14:00 Calcium Carbonate (Tums) 500 mg QID PRN PO indigestion; Start 05/10/19 at 14:00 Hydralazine HCl (Apresoline) 10 mg Q4H PRN IV SBP >170 Last administered on 05/11/19 11:39; Admin Dose 10 MG; Start 05/10/19 at 14:00 Albuterol (Proventil 0.083% (Neb)) 2.5 mg Q2H RESP THERAPY PRN HHN SHORTNESS OF BREATH; Start 05/10/19 at 15:00 Amlodipine Besylate (Norvasc) 5 mg BID PO Last administered on 05/15/19 09:06; Admin Dose 5 MG; Start 05/10/19 at 21:00 Hydrochlorothiazide (Hydrochlorothiazide) 12.5 mg DAILY PO Last administered on 05/15/19 09:07; Admin Dose 12.5 MG; Start 05/10/19 at 17:00 Losartan Potassium (Cozaar) 25 mg BID PO Last administered on 05/15/19 09:06; Admin Dose 25 MG; Start 05/10/19 at 21:00 Atorvastatin Calcium (Lipitor) 20 mg HS PO Last administered on 05/14/19 20:02; Admin Dose 20 MG; Start 05/12/19 at 21:00 Thiamine HCl (Vitamin B1) 100 mg DAILY PO Last administered on 05/15/19 09:06; Admin Dose 100 MG; Start 05/12/19 at 16:00 Folic Acid (Folic Acid) 1 mg DAILY PO Last administered on 05/15/19 09:05; Admin Dose 1 MG; Start 05/12/19 at 16:00 Chlordiazepoxide (Librium) 25 mg TID PO Last administered on 05/15/19at 09:05; Admin Dose 25 MG; Start 05/12/19 at 21:00 Clopidogrel Bisulfate (plaVIX) 75 mg DAILY PO Last administered on 05/15/19at 09:05; Admin Dose 75 MG; Start 05/13/19 at 10:00 VTE Prophylaxis Risk score (from Ns)>0 risk: 3 SCD applied (from [facility]): No SCD contraindication: other Lines/Catheters IV Catheter Type: [place]án[place] in Place: No Assessment/Plan Hospital Course Subjective Patient sleeping, no acute complaints at this time Objective Physical exam General: Patient is laying in bed and answers questions appropriately Mentation: Patient is alert and oriented 4, Head: Normocephalic atraumatic Eyes: EOMI, pupils reactive to light Neck: Supple, nontender, midline Respiratory: Clear to auscultation bilaterally Cardiovascular: regular rate, no obvious murmurs Gastrointestinal: non-tender to palpation, bowel sounds heard. Neurological: Moves all extremities spontaneously Skin: No new skin lesions 1. Acute atypical chest pain- resolved - ACS ruled out - serial trops negative and ECHO without structural abnormalities - Cardiology consultation appreciated and cleared for discharge home - most likely stress related - nitro, O2 PRN 2. HTN - continue home medications 3. Environmental allergies - continue Singulair 4. h/o tobacco abuse - continue Spiriva - Neb PRN 5. Mild cognitive impairment - Neurology consultation appreciated. Imaging studies noted with no acute findings. Most likely chronic encephalopathy with acute exacerbation and recommending discharge as soon as possible to avoid development of hospital delirium - CM and SW on board given patient may not be safe to discharge home without making arrangements for a caregiver, assisted living facility, or SNF 6. Mild Carotid stenosis, R ICA - will continue on aspirin and statin 7. Disposition - Patient remains medically stable but due to confusion, is not safe for discharge home alone. CM on board assisting with discharge planning VIRGEN MCQUEEN May 15, 2019 12:18
[2019-05-15 14:50] VITALS: BP 150/68; PULSE 63; RESP 19
--- NOTE | 2019-05-15 19:33 | CONS ---
Assessment/Plan Assessment/Plan Hospital Course (Demo Recall) Chest pain, resolved Preserved left ventricular ejection fraction Hypertension Likely COPD Denies any further chest pain or shortness of breath Serial cardiac enzymes remain negative, echocardiogram with preserved left ventricular ejection fraction Blood pressure trend improved No new CV orders at the current time Consultation Date/Type/Reason Admit Date/Time May 12, 2019 at 12:42 Initial Consult Date Type of Consult Cardiology Requesting Provider: SOFIA AYOUB MD Date/Time of Note DATE: 05/15/19 TIME: 19:32 24 HR Interval Summary Free Text/Dictation no cp,sob,palp Exam/Review of Systems Vital Signs Vitals Vital Signs Date Temp Pulse Resp B/P (MAP) Pulse Ox O2 O2 Flow FiO2 Time Delivery Rate 05/15/19 98.5 63 19 150/68 98 Room Air 14:50 (95) Intake and Output 05/14/19 05/14/19 05/15/19 1515:00 23:00 07:00 IntakeIntake Total 600 ml 240 ml OutputOutput Total 600 ml 200 ml 600 ml BalanceBalance 0 ml 40 ml -600 ml Exam Constitutional: alert, oriented Head: normocephalic Respiratory: clear to auscultation, normal air movement Cardiovascular: regular rate and rhythm (s1s2) Gastrointestinal: soft, non-tender, bowel sounds Extremities: edema (tr) Labs Result Diagram: 05/15/19 0717 05/15/19 0717 Results 24hrs Laboratory Tests Test 05/15/19 07:17 05/15/19 13:15 05/15/19 14:20 White Blood Count 5.6 Red Blood Count 4.62 L Hemoglobin 14.2 Hematocrit 43.6 Mean Corpuscular Volume 94.4 Mean Corpuscular Hemoglobin 30.7 Mean Corpuscular 32.6 Hemoglobin Concent Red Cell Distribution Width 14.1 Platelet Count 225 Mean Platelet Volume 9.8 Immature Granulocytes % 0.400 Neutrophils % 68.6 Lymphocytes % 14.7 L Monocytes % 11.2 H Eosinophils % 4.4 Basophils % 0.7 Nucleated Red Blood Cells % 0.0 Immature Granulocytes # 0.020 Neutrophils # 3.9 Lymphocytes # 0.8 Monocytes # 0.6 Eosinophils # 0.3 Basophils # 0.0 Nucleated Red Blood Cells # 0.0 Sodium Level 137 Potassium Level 5.1 Chloride Level 102 Carbon Dioxide Level 28 Anion Gap 7 Blood Urea Nitrogen 27 H Creatinine 0.64 Glucose Level 127 Calcium Level 9.4 Phosphorus Level 3.6 Magnesium Level 2.0 Albumin 3.6 Urine Color YELLOW Urine Clarity CLEAR Urine pH 5.0 Urine Specific [place] 1.011 Urine Ketones NEGATIVE Urine Nitrite NEGATIVE Urine Bilirubin NEGATIVE Urine Urobilinogen NEGATIVE Urine Leukocyte Esterase NEGATIVE Urine Hemoglobin NEGATIVE Urine Glucose NEGATIVE Urine Total Protein NEGATIVE Lab Scanned Report REFERENCE LAB Medications Medications Current Medications Metoprolol Tartrate (Lopressor) 25 mg BID PO Last administered on 05/15/19 09:05; Admin Dose 25 MG; Start 05/10/19 at 21:00 Montelukast Sodium (Singulair) 1 mg DAILY PO Last administered on 05/15/19 09:06; Admin Dose 1 MG; Start 05/11/19 at 09:00 Tiotropium [place] (Spiriva) 1 inh DAILY INH Last administered on 05/15/19at 09:05; Admin Dose 1 INH; Start 05/11/19 at 09:00 Fluticasone/ Vilanterol (Breo Ellipta 200-25 Mcg Inh) 1 inh DAILY INH Last administered on 05/15/19at 09:04; Admin Dose 1 INH; Start 05/11/19 at 09:00 IV Flush (NS 3 ml) 3 ml PER PROTOCOL IV ; Start 05/10/19 at 14:00 Ondansetron HCl (Zofran Inj) 4 mg Q6H PRN IV NAUSEA/VOMITING; Start 05/10/19 at 14:00 Aspirin (Aspirin) 81 mg DAILY PO Last administered on 05/15/19at 09:05; Admin Dose 81 MG; Start 05/11/19 at 09:00 Nitroglycerin (Nitroglycerin (Sl Tab) 0.4 Mg) 1 tab Q5M PRN SL .CHEST PAIN; Start 05/10/19 at 14:00 Acetaminophen (Tylenol Tab) 650 mg Q6H PRN PO .PAIN 1-3 OR TEMP; Start 05/10/19 at 14:00 Docusate Sodium (Colace) 100 mg Q12H PRN PO .CONSTIPATION; Start 05/10/19 at 14:00 Magnesium Hydroxide (Milk Of Mag) 30 ml DAILY PRN PO .CONSTIPATION; Start 05/10 at 14:00 Pantoprazole (Protonix Tab) 40 mg DAILY@06 PO Last administered on 05/15/19at 05:52; Admin Dose 40 MG; Start 05/11/19 at 06:00 Heparin Sodium (Porcine) (Heparin (5000 Units/1ml)) 5,000 unit Q8 SC Last administered on 05/15/19 14:58; Admin Dose 5,000 UNIT; Start 05/10/19 at 14:00 Calcium Carbonate (Tums) 500 mg QID PRN PO indigestion; Start 05/10/19 at 14:00 Hydralazine HCl (Apresoline) 10 mg Q4H PRN IV SBP >170 Last administered on 05/11/19 11:39; Admin Dose 10 MG; Start 05/10/19 at 14:00 Albuterol (Proventil 0.083% (Neb)) 2.5 mg Q2H RESP THERAPY PRN HHN SHORTNESS OF BREATH; Start 05/10/19 at 15:00 Amlodipine Besylate (Norvasc) 5 mg BID PO Last administered on 05/15/19 09:06; Admin Dose 5 MG; Start 05/10/19 at 21:00 Hydrochlorothiazide (Hydrochlorothiazide) 12.5 mg DAILY PO Last administered on 05/15/19 09:07; Admin Dose 12.5 MG; Start 05/10/19 at 17:00 Losartan Potassium (Cozaar) 25 mg BID PO Last administered on 05/15/19 09:06; Admin Dose 25 MG; Start 05/10/19 at 21:00 Atorvastatin Calcium (Lipitor) 20 mg HS PO Last administered on 05/14/19 20:02; Admin Dose 20 MG; Start 05/12/19 at 21:00 Thiamine HCl (Vitamin B1) 100 mg DAILY PO Last administered on 05/15/19 09:06; Admin Dose 100 MG; Start 05/12/19 at 16:00 Folic Acid (Folic Acid) 1 mg DAILY PO Last administered on 05/15/19 09:05; Admin Dose 1 MG; Start 05/12/19 at 16:00 Chlordiazepoxide (Librium) 25 mg TID PO Last administered on 05/15/19 14:56; Admin Dose 25 MG; Start 05/12/19 at 21:00 Clopidogrel Bisulfate (plaVIX) 75 mg DAILY PO Last administered on 05/15/19 09:05; Admin Dose 75 MG; Start 05/13/19 at 10:00 Bao Garza DO May 15, 2019 19:33
[2019-05-15 19:55] VITALS: BP 133/63; PULSE 72; RESP 18
[2019-05-15] MEDS: ATORVASTATIN 20 MG TAB PO SCH (21:37)
[2019-05-16 01:27] VITALS: BP 129/65; PULSE 70; RESP 15
[2019-05-16] MEDS: PANTOPRAZOLE (EC) 40 MG TAB PO SCH (06:09)
[2019-05-16] MEDS: HEPARIN 5,000 UNIT/1 ML VIAL SC SCH ×2 (06:09→12:25)
[2019-05-16 07:58] VITALS: BP 131/60; PULSE 72; RESP 18
[2019-05-16] MEDS: FOLIC ACID 1 MG TAB PO SCH (08:43)
[2019-05-16] MEDS: CHLORDIAZEPOXIDE 25 MG CAP PO SCH ×2 (08:43→12:24)
[2019-05-16] MEDS: THIAMINE 100 MG TAB PO SCH (08:44)
[2019-05-16] MEDS: ASPIRIN 81 MG TAB PO SCH (08:44)
[2019-05-16] MEDS: LOSARTAN 25 MG TAB PO SCH (08:44)
[2019-05-16] MEDS: HYDROCHLOROTHIAZIDE 12.5 MG CAP PO SCH (08:44)
[2019-05-16] MEDS: MONTELUKAST 10 MG TAB PO SCH (08:44)
[2019-05-16] MEDS: CLOPIDOGREL 75 MG TAB PO SCH (08:45)
[2019-05-16] MEDS: AMLODIPINE 5 MG TAB PO SCH (08:45)
[2019-05-16] MEDS: METOPROLOL 25 MG TAB PO SCH (08:52)
[2019-05-16] MEDS: FLUTICASONE/VILANTEROL 200-25 INH DEVICE INH SCH (08:53)
[2019-05-16] MEDS: TIOTROPIUM 18 MCG CAPSULE INHA DEV INH SCH (08:53)
--- NOTE | 2019-05-16 13:53 | DS ---
Date/Time of Note Date/Time of Note DATE: 05/16/19 TIME: 13:53 Discharge Summary Admission/Discharge Info Admit Date/Time May 12, 2019 at 12:42 Discharge Date/Time Discharge Diagnosis 1. Acute atypical chest pain, stress related. noncardiac 2. Hypertension 3. Environmental allergies 4. h/o remote tobacco use Patient Condition: Stable Hospital Course Patient is a male with a past medical history of hypertension who presents to [facility] for acute atypical chest pain and altered mental status. Patient was seen by cardiology and chest pain ACS was ruled out. Patient was also seen by neurology due to bizarre behavior as well as altered mental status. Multiple imaging modalities were done including MRI and MRA of the brain which resulted in no acute issues however patient did have findings of chronic encephalopathy with likely an acute exacerbation. There were concerns from patient's neighbor and family members that he is becoming increasingly more difficult to take care of himself at home and everyone recommended residential facility. Patient is also okay with a stay at a [facility]. Of note MRI did say that there was age-related cerebral volume loss and mild to prominent small vessel ischemic change. As well as old lacunar infarcts. There is also microbleed's seen. Neurology recommended patient to be discharged on aspirin, baby aspirin as well as a statin. 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 Of note patient also does have a mild carotid stenosis and is recommended to continue the baby aspirin and statin. Patient's blood pressure medications were adjusted and patient will now be sent to a residential facility for continued care due to patient's chronic cognitive issues. Discharge diagnoses Atypical chest pain, resolved Hypertension, controlled Allergies COPD versus asthma History of tobacco use Mild chronic cognitive impairment Mild carotid stenosis Home Meds Reported Medications Olmesartan/Amlodipin/Hcthiazid ([id number]-Ozxq 40-10-25Mg) 1 Each Tablet, 1 TAB ORAL DAILY 05/10/19 Budesonide-Formoterol Fumarate* (Symbicort*) 160-4.5 Hfa.aer.ad, 1 PUFF INH DAILY 05/10/19 Metoprolol Tartrate* (Lopressor*) 25 Mg Tablet, 1 TAB ORAL BID 05/10/19 Montelukast Sodium* (Montelukast Sodium*) 10 Mg Tablet, 1 TAB ORAL DAILY 05/10/19 Tiotropium [place]* (Spiriva*) 18 Mcg Cap.w.dev, 1 CAP INH DAILY 05/10/19 Follow-up Plan 1. Follow up with your primary care physician in 1-2 weeks 2. Continue all medications as prescribed 3. Try and limit putting yourself in any stressful situation since it contributed to your chest discomfort 4. You will have a nurse come to your home and assess need for any services as well as check your vitals 5. If experiencing any concerning symptoms, please go to your nearest emergency department Primary Care Provider Not On Staff Doctor Time spent on discharge: > 30 minutes Pending Labs Laboratory Tests Test 05/15/19 14:20 Lab Scanned Report REFERENCE LAB [id number] VIRGEN MCQUEEN May 16, 2019 13:53
[2019-05-16] MEDS ORDERED: AMLO-145 PO (14:00)
[2019-05-16] MEDS ORDERED: ATOR20TA65 PO (14:00)
[2019-05-16] MEDS ORDERED: HYDR12.53 PO (14:00)
[2019-05-16] MEDS ORDERED: LOSA25TA2 PO (14:00)
[2019-05-16 14:10] VITALS: BP 128/62; PULSE 68; RESP 19
[2019-05-18] MEDS ORDERED: FOLI-49 PO (12:40)
[2019-05-18] MEDS ORDERED: THIA100T56 PO (13:16)
[2019-05-18] MEDS ORDERED: FLUT1BLS INHALATION (13:16)
[2019-05-18] MEDS ORDERED: AMLO5TAB4 PO (13:16)
[2019-05-18] MEDS ORDERED: CRAN3875 PO (13:16)
[2019-05-18] MEDS ORDERED: LOSA25TA2 PO (13:16)
[2019-05-18] MEDS ORDERED: CRAN425C6 PO (13:16)
[2019-05-18] MEDS ORDERED: HYDR12.544 PO (13:16)
[2019-05-18] MEDS ORDERED: ACET325T33 PO (13:17)
[2019-05-18] MEDS ORDERED: MAGN400O19 PO (13:17)
[2019-05-18] MEDS ORDERED: NITR0.4T39 SL (13:17)
[2019-05-18] MEDS ORDERED: CALC600T24 PO (13:17)
[2019-05-18] MEDS ORDERED: DOCU-144 PO (13:17)
[2019-05-18] MEDS ORDERED: MULTI PO (13:17)
[2019-05-18] MEDS ORDERED: ALBU2.5V3 NEB (13:17)
[2019-05-18] MEDS ORDERED: ACET-141 PO (13:17)
[2019-05-18] MEDS ORDERED: ACET500C5 PO (13:17)
[2019-05-18] MEDS ORDERED: MINE133E23 PR (13:17)
[2019-05-18] MEDS ORDERED: BISA-57 PO (13:17)
[2019-05-18] MEDS ORDERED: ASCO500C7 PO (13:17)
== END 2019-05-16 19:35 | DRG 72 ==
LOC: E/R 11:22 → TEL 13:41 → OBSVTOIN 05-12 12:42 → 2NE 05-13 13:59
PROVIDERS: ADMIT Internal Medicine; ATTEND Internal Medicine
DX: G93.40 Encephalopathy, unspecified (principal); R07.89 Other chest pain; I65.29 Occlusion and stenosis of unspecified carotid artery; I10 Essential (primary) hypertension; R73.03 Prediabetes; Z87.891 Personal history of nicotine dependence; J44.9 Chronic obstructive pulmonary disease, unspecified; R41.0 Disorientation, unspecified; Z72.89 Other problems related to lifestyle; G31.84 Mild cognitive impairment of uncertain or unknown etiology
CPT/HCPCS: 36415; 70545; 70548; 70551; 71045; 80048; 80061; 80069; 80307; 81003; 82550; 82553; 82607; 83036; 83735; 84425; 84443; 84484; 85025; 93005; 93306; 97116; 97161; 97167; 97530; G0378; J0360; J1644

== ENCOUNTER 2019-05-17 22:20 | Inpatient (IN) | payer MEDICARE, BC, OTHER ==
[~2019-05-17] VITALS: Ht 182.9 cm; Wt 68.5 kg
[~2019-05-17 22:20] MED LIST: ACET-141 PO; ACET325T33 PO; ACET500C5 PO; ALBU2.5V3 NEB; AMLO-145 PO; AMLO5TAB4 PO; ASCO500C7 PO; ATOR20TA65 PO; BISA-57 PO; BUDE6HFA INH; CALC600T24 PO; CRAN3875 PO; CRAN425C6 PO; DOCU-144 PO; FLUT1BLS INHALATION; FOLI-49 PO; HYDR12.53 PO; HYDR12.544 PO; LOSA25TA2 PO; MAGN400O19 PO; METO25TA4 ORAL; MINE133E23 PR; MONT10TA24 ORAL; MULTI PO; NITR0.4T39 SL; THIA100T56 PO; TIOT18CA INH
[2019-05-17] MEDS ORDERED: SOD CHLORIDE 0.9% 500 ML IV STA (22:26)
[2019-05-18] VITALS (24 sets, daily range): BP systolic 79–105; BP diastolic 45–56; PULSE 74–87; RESP 18–24; Ht 182.9 cm; Wt 68.5 kg
[2019-05-18] MEDS ORDERED: ACETAMINOPHEN 325 MG TAB PO PRN ×2 (01:00→02:00)
[2019-05-18] MEDS ORDERED: ONDANSETRON 4 MG INJ IV PRN ×2 (01:00→02:00)
[2019-05-18] MEDS ORDERED: ALBUTEROL/IPRATROPIUM (NEB) 3 ML AMP HHN PRN ×2 (02:00→09:30)
[2019-05-18] MEDS ORDERED: NACL 0.9% 3 ML SYG IV SCH (02:00)
[2019-05-18] MEDS ORDERED: METHYLPREDNISOLONE 125 MG INJ IV ONE (02:00)
[2019-05-18] MEDS ORDERED: LEVOFLOXACIN 500MG/D5W (PMX) 100 ML IVPB SCH (02:00)
--- NOTE | 2019-05-18 03:40 | ERD ---
ER Documentation Chief Complaint Chief Complaint BIB transport from [facility],lethargic,84% on 6 lpm via nasal cannula HPI This 84-year-old male brought in by rescue for transfer to [facility] with complaints of lethargy. He is 84% on nasal cannula at the rescue monitor. Patient himself is recently discharged from [facility]. Cannot provide any relevant history. History is per EMS when she care home transfer she ROS All systems reviewed and are negative except as per history of present illness. Medications Home Meds Active Scripts Atorvastatin Calcium (Atorvastatin Calcium) 20 Mg Tablet, 20 MG PO HS for 30 Days, TAB Prov:VIRGEN MCQUEEN 05/16/19 Amlodipine Besylate* (Amlodipine Besylate*) 5 Mg Tablet, 5 MG PO BID for 30 Days, TAB Prov:VIRGEN MCQUEEN 05/16/19 Losartan Potassium* (Cozaar*) 25 Mg Tablet, 25 MG PO BID for 30 Days, TAB Prov:VIRGEN MCQUEEN 05/16/19 Hydrochlorothiazide (Hydrochlorothiazide) 12.5 Mg Capsule, 12.5 MG PO DAILY for 30 Days, CAP Prov:VIRGEN MCQUEEN 05/16/19 Reported Medications Budesonide-Formoterol Fumarate* (Symbicort*) 160-4.5 Hfa.aer.ad, 1 PUFF INH DAILY 05/10/19 Metoprolol Tartrate* (Lopressor*) 25 Mg Tablet, 1 TAB ORAL BID 05/10/19 Montelukast Sodium* (Montelukast Sodium*) 10 Mg Tablet, 1 TAB ORAL DAILY 05/10/19 Tiotropium Blandon* (Spiriva*) 18 Mcg Cap.w.dev, 1 CAP INH DAILY 05/10/19 Discontinued Reported Medications Olmesartan/Amlodipin/Hcthiazid (Sitkkxn-Xyosxi-Seku 40-10-25Mg) 1 Each Tablet, 1 TAB ORAL DAILY 05/10/19 Allergies Allergies: Coded Allergies: No Known Allergy (Unverified , 05/10/19) PMhx/Soc History of Surgery: Yes (Cholecytectomy ) Anesthesia Reaction: No Hx Neurological Disorder: No Hx Respiratory Disorders: Yes (Asthma ) Hx Cardiac Disorders: Yes (HTN ) Hx Psychiatric Problems: No Hx Miscellaneous Medical Probl: No Hx Alcohol Use: Yes Hx Substance Use: No Hx Tobacco Use: Yes Smoking Status: Current every day smoker Physical Exam Vitals Vital Signs Date Temp Pulse Resp B/P (MAP) Pulse Ox O2 O2 Flow FiO2 Time Delivery Rate 05/18/19 88 16 149/72 98 Non 12.0 01:49 (97) Rebreather 05/17/19 99.0 91 17 164/67 84 22:25 (99) Physical Exam Const: No acute distress Head: Atraumatic Eyes: Normal Conjunctiva ENT: Normal External Ears, Nose and Mouth. Neck: Full range of motion. No meningismus. Resp: Clear to auscultation bilaterally Cardio: Regular rate and rhythm, no murmurs Abd: Soft, non tender, non distended. Normal bowel sounds Skin: No petechiae or rashes Back: No midline or flank tenderness Ext: No cyanosis, or edema Neur: Awake and alert Psych: Normal Mood and Affect Result Diagram: 05/17/19223905/17/192239 Results 24 hrs Laboratory Tests Test 05/17/19 22:40 05/18/19 00:30 White Blood Count 16.1 10^3/ul Red Blood Count 4.65 10^6/ul Hemoglobin 14.2 g/dl Hematocrit 45.3 % Mean Corpuscular Volume 97.4 fl Mean Corpuscular Hemoglobin 30.5 pg Mean Corpuscular Hemoglobin Concent 31.3 g/dl Red Cell Distribution Width 14.4 % Platelet Count 249 10^3/UL Mean Platelet Volume 10.0 fl Immature Granulocytes % 0.900 % Neutrophils % 90.9 % Lymphocytes % 2.0 % Monocytes % 6.0 % Eosinophils % 0.0 % Basophils % 0.2 % Nucleated Red Blood Cells % 0.0 /100WBC Immature Granulocytes # 0.150 10^3/ul Neutrophils # 14.6 10^3/ul Lymphocytes # 0.3 10^3/ul Monocytes # 1.0 10^3/ul Eosinophils # 0.0 10^3/ul Basophils # 0.0 10^3/ul Nucleated Red Blood Cells # 0.0 10^3/ul Prothrombin Time 14.5 Sec Prothrombin Time Ratio 1.1 INR International Normalized Ratio 1.12 Activated Partial Thromboplast Time 32.6 Sec Sodium Level 136 mmol/L Potassium Level 4.8 mmol/L Chloride Level 97 mmol/L Carbon Dioxide Level 32 mmol/L Anion Gap 7 Blood Urea Nitrogen 28 mg/dl Creatinine 0.66 mg/dl Est Glomerular Filtrat Rate mL/min mL/min Glucose Level 152 mg/dl Calcium Level 9.8 mg/dl Urine Color YELLOW Urine Clarity CLEAR Urine pH 5.0 Urine Specific [place] 1.013 Urine Ketones NEGATIVE mg/dL Urine Nitrite NEGATIVE mg/dL Urine Bilirubin NEGATIVE mg/dL Urine Urobilinogen NEGATIVE mg/dL Urine Leukocyte Esterase NEGATIVE Uli/ul Urine Microscopic RBC 173 /HPF Urine Microscopic WBC 2 /HPF Urine Hemoglobin 3+ mg/dL Urine Glucose NEGATIVE mg/dL Urine Total Protein NEGATIVE mg/dl Current Medications Medications Dose Sig/Nedra Start Time Status Last (Trade) Ordered Route PRN Stop Time Admin Dose Reason Admin Sodium 500 ml @ Q1H STAT 05/17/19 DC 05/17/19 Chloride 500 mls/hr IV 22:26 02:12 05/17/19 23:25 Ondansetron 4 mg ER BRIDGE 05/18/19 HCl (Zofran PRN IV 01:00 Inj) NAUSEA/VOMITI 05/19/19 00:59 NG 650 mg ER BRIDGE 05/18/19 Acetaminophen PRN PO 01:00 (Tylenol .MILD PAIN 05/19/19 00:59 Tab) 1-3 OR TEMP IV Flush 3 ml PER 05/18/19 (NS 3 ml) PROTOCOL IV 02:00 Ondansetron 4 mg Q6H PRN 05/18/19 HCl (Zofran IV 02:00 Inj) NAUSEA/VOMITI NG 650 mg Q6H PRN 05/18/19 Acetaminophen PO .PAIN 1-3 02:00 (Tylenol OR TEMP Tab) Albuterol/ 3 ml Q2H RESP 05/18/19 Ipratropium THERAPY PRN 02:00 (Duoneb) HHN SHORTNESS OF BREATH Amlodipine 5 mg BID PO 05/18/19 Besylate 09:00 (Norvasc) 20 mg HS PO 05/18/19 Atorvastatin 21:00 Calcium (Lipitor) 12.5 mg DAILY PO 05/18/19 Hydrochloroth 09:00 iazide (Hydrochlorot hiazide) Losartan 25 mg BID PO 05/18/19 Potassium 09:00 (Cozaar) Metoprolol 25 mg BID PO 05/18/19 Tartrate 09:00 (Lopressor) Tiotropium 18 inh DAILY INH 05/18/19 Blandon 09:00 (Spiriva) 1 puff DAILY INH 05/18/19 UNV Miscellaneous 09:00 Information 80 mg ONCE ONCE 05/18/19 DC 05/18/19 Methylprednis IV 02:00 02:12 olone Sodium 05/18/19 02:01 Succinate (Solu-Medrol) 100 ml @ Q24H IVPB 05/18/19 05/18/19 Levofloxacin/ 100 mls/hr 02:00 02:12 Dextrose Procedures/MDM Medical decision makin-year-old male with altered level consciousness and hypoxia. His hypoxia has resolved somewhat here in the emergency department. His alteration in mental status continues. He does have elevation of white count discharge, however he has no source of infection and he is afebrile. Patient will be admitted for alteration in mental status to the hospitalist for further evaluation and management. Hospitalist made aware. EKG: Rate/Rhythm: [Normal Sinus Rhythm] QRS, ST, T-waves: [No changes consistent w/ acute ischemia] Impression: [No evidence of ischemia or arrhythmia] Chest X-ray 1V Interpreted by me: Soft Tissue: No acute abnormalities Bones: No acute abnormalities Mediastinum/Cardiac Silhouette/Lungs: [No acute abnormalities] Departure Diagnosis: Primary Impression: Altered level of consciousness Condition: Serious KRISTIN CURRY May 18, 2019 03:40
[2019-05-18] MEDS ORDERED: ETOMIDATE 20 MG INJ ONE (07:00)
[2019-05-18] MEDS ORDERED: SUCCINYLCHOLINE CHLORIDE 100 MG/5 ML SYG IV ONE (07:00)
[2019-05-18] MEDS ORDERED: TIOTROPIUM 18 MCG CAPSULE INHA DEV INH SCH (09:00)
[2019-05-18] MEDS: LOSARTAN 25 MG TAB PO SCH ×2 (09:00→21:00)
[2019-05-18] MEDS ORDERED: FLUTICASONE/VILANTEROL 200-25 INH DEVICE INH SCH (09:00)
[2019-05-18] MEDS: HYDROCHLOROTHIAZIDE 12.5 MG CAP PO SCH (09:00)
[2019-05-18] MEDS: AMLODIPINE 5 MG TAB PO SCH ×2 (09:00→21:00)
[2019-05-18] MEDS ORDERED: NON-FORMULARY/PATIENT OWN MED (Budesonide-Formoterol Fumarate* (Symbicort*) 1 PUFF) INH SCH (09:00)
[2019-05-18] MEDS: METOPROLOL 25 MG TAB PO SCH ×2 (09:00→21:00)
[2019-05-18] MEDS ORDERED: DEXTROSE 5%-0.45% NACL 1,000 ML IV SCH (09:30)
[2019-05-18] MEDS ORDERED: ALBUTEROL 0.5% (NEB) 2.5 MG/0.5 ML AMP INH STA (10:13)
[2019-05-18] MEDS ORDERED: IPRATROPIUM (NEB) 0.5 MG/2.5 ML AMP INH STA (10:13)
[2019-05-18] MEDS ORDERED: CEFEPIME 2GM/50 ML (PMX) 50 ML IVPB STA (10:20)
[2019-05-18] MEDS ORDERED: SODIUM CHLORIDE 0.9% 1L BAG IV* STA (10:20)
[2019-05-18] MEDS ORDERED: VANCOMYCIN 1 GM (PMX) 250 ML IVPB ONE (10:30)
[2019-05-18] MEDS ORDERED: VANCOMYCIN IV PER PHARMACY XX SCH (10:30)
--- NOTE | 2019-05-18 10:43 | EN ---
Date/Time of Note Date/Time of Note DATE: 05/18/19 TIME: 10:14 ER Progress Note Consultation note SUBJECTIVE This patient was signed out to me by Dr. Garcia at 6 AM on May 18, 2019 pending transfer to a telemetry unit for altered mental status. Briefly, this is an 84-year-old male with a past medical history of hypertension, hyperlipidemia, asthma/COPD, presenting from a nursing facility for hypoxia and worsening lethargy. FAMILY HISTORY As indicated on the initial history and physical of this ER visit OBJECTIVE VS: Vital signs reviewed Const: Unresponsive, somnolent Head: Normocephalic, Atraumatic Eyes: Normal Conjunctiva. ENT: Normal External Ears, Nose. Dry mucous membranes Neck: Trachea midline Resp: Tachypnea with tight respirations and end expiratory wheezing. Symmetric chest wall singh Cardio: Regular rate and rhythm. No murmurs, rubs or gallops. Abd: Non distended Skin: No petechiae or rashes Ext: No cyanosis, or edema Neur: Somnolent. Does not open eyes. Minimal withdraw to pain in all extremities. Nonverbal. GCS less than 8. MDM The patient's presentation warrants further investigation. Previous medical records, if available, were reviewed. LABS The patient's laboratory testing was reviewed. No emergent treatment was required unless described below. CBC: Significant leukocytosis with severe bandemia, concerning for a possible infection. Chemistry: Significant metabolic alkalosis likely compensatory to respiratory acidosis from his significant obstructive pulmonary pattern. Elevated BUN with a BUN: Creatinine ratio greater than 20: 1, concerning for dehydration. No E/o severe acidosis or renal failure or liver disease or diabetic ketoacidosis PT/INR: No E/o significant coagulopathy Lactate: No E/o severe sepsis Troponin: No E/o acute ischemia Urine: No E/o acute infection. + Hematuria EKG EKG read by me: Rate/Rhythm: Regular rate and rhythm at a rate of 71 Intervals: Normal [place]: Normal Impression: No evidence of acute ischemia or arrhythmia IMAGING Imaging and Radiology interpretation reviewed. CXR COMPARISON: 05/10/2019. FINDINGS: There is diffuse bilateral interstitial pulmonary disease with mid and lower lung zone predominance, unchanged. There is no focal airspace disease. The heart size is normal. There is calcification in the aorta consistent with atherosclerosis. There is no pleural effusion. There is no pneumothorax. IMPRESSION: 1. Probable chronic bilateral interstitial pulmonary disease, unchanged. 2. Atherosclerosis. 3. No change from the 05/10/2019 chest radiograph. Electronically viewed and signed by Silas Guajardo MD, on 05/17/2019 23:10 CXR sp Intubation FINDINGS: The endotracheal tube ends in the mid thoracic trachea. Airspace opacity in the left lower lobe is increased representing lobar pneumonia or aspiration pneumonitis. A small left pleural effusion is suggested. There is mild right infrahilar opacity which could represent atelectasis or airspace disease. There is no right pleural effusion. No pneumothorax is seen. The cardiac silhouette is partially obscured. The aorta is tortuous and atherosclerotic. IMPRESSION: 1. Increased left lower lobe airspace opacity representing pneumonia or aspiration pneumonitis with small left pleural effusion. 2. Mild right infrahilar opacity, unchanged. Electronically viewed and signed by Physician Cornelius on 05/18/2019 11:19 CT Head COMPARISON: 05/25/2017 FINDINGS: There is moderate cerebral volume loss. No hydrocephalus is seen. There is no mass effect. No acute intracranial hemorrhage is identified. There is no extra-axial collection. No CT evidence of acute infarction is identified. There are chronic lacunar infarctions in the right basal ganglia region and thalamus. There is patchy low attenuation in the supratentorial white matter, a nonspecific finding which most likely represents the sequela of moderate to severe chronic microvascular ischemic disease. There are moderate atherosclerotic arterial calcifications. There is no significant mucosal disease in the paranasal sinuses. The visualized mastoid air cells are clear. The osseous structures are unremarkable. The extracranial soft tissues are unremarkable. The patient is status post bilateral lens replacement surgery. There is debris in the left external auditory canal. IMPRESSION: No acute intracranial pathology. 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 Moderate cerebral volume loss. Moderate to severe chronic microvascular ischemic changes. Atherosclerotic arterial calcifications. Debris in the left external auditory canal, probably cerumen. Electronically viewed and signed by Geoff Culver MD, MD on 05/17/2019 23:04 TREATMENT/DISPOSITION The patient was previously admitted to telemetry under the hospitalist service awaiting transfer to the telemetry floor. The hospitalist team ordered an ABG that revealed severe hypercapnic respiratory acidosis, which is likely the etiology of his hypoxia and altered mental status. On reassessment of the pat ient, he was very somnolent with a GCS of less than 8. I was concerned about the patient's ability to protect his own airway, and I did feel that emergent intubation was necessary. This was completed without complication as described in the procedure note below. Given the patient's hypercapnia and hypoxia, we started the patient out at a respiratory rate of 20, a tidal volume of 500, FiO2 of 100% and a PEEP of 5. The patient was also given nebulized albuterol and ipratropium as I did hear tight breath sounds and wheezes on exam. The patient's repeat ABG showed significant improvement of his hypercapnia and acidosis. On review of the patient's overall work-up, the patient is tachypneic with a significant leukocytosis and bandemia. I am concerned about the possibility of an infectious etiology. The repeat chest x-ray reveals the possibility of pneumonia. The patient meets criteria for a systemic inflammatory response syndrome. At this time, I opted to complete a septic work-up. The patient was treated with vancomycin in the ER. The hospitalist team already ordered Zosyn. Hyperkalemia hyperkalemia ENDOTRACHEAL INTUBATION Performed by me. Pre-assessment performed. Pre-oxygenation performed with 100% oxygen. RSI: Performed w/o complication or hypoxic events. Medications as ordered. Blade: Mac 4 via Video Larygnoscope ET Tube: 8 mm Depth: 24 cm at the lip Intubation confirmed by colorimetric CO2, equal breath sounds, quiet over the stomach. Chest x-ray was read by the radiologist with appropriate position of the endotracheal tube. Please see radiology note above. SEPSIS NOTE SIRS Criteria: Tachypnea, leukocytosis Infectious source: Likely pulmonary End organ damage indicated by: AHRF Sat < 92% without oxygen SEPSIS MANAGEMENT Time to recognize sepsis: 1015. Time to recognize severe sepsis: 1015. Time to recognize septic shock: No septic shock at this time. 3 HOUR BUNDLE Blood cultures x 2 before abx: Yes 30 ml/kg NS bolus completed Initial lactate 1.8 Repeat lactate pending SEPTIC SHOCK ASSESSMENT: NO lactic acid > 4.0 NO persistent hypotension (SBP < 90 or 40 mmHg drop, MAP < 65) despite 30 L/kg IV fluid bolus I considered further perfusion assessment with CVP measurement, SCVO2, bedside ultrasound volume assessment, passive leg raise, trial of further fluid bolus. And proceeded with 30 ml/kg fluid bolus of NSS, broad spectrum antibiotics, and admission. CRITICAL CARE Critical care time 31 minutes Emergent fluid management while maintaining close respiratory support. Provision of immediate and broad-spectrum antibiotic therapy. Simultaneous assessment for possible sources in order to direct targeted therapy. Consideration for invasive and chemical support to prevent cardiopulmonary collapse. Critical care time is independent of procedures performed. OBSERVATION NOTE Time: 4 hours Family Hx: No Hypertension Evaluation: Multiple exams showed no improvement of symptoms and evidence of decompensation requiring intubation ADMISSION The patient is already admitted to panel in accordance with the patient's insurance. The patient's status is upgraded to critical. He will be admitted to the ICU. CONDITION: Critical PRIMARY IMPRESSION: Hypercapnic hypoxic respiratory failure SECONDARY IMPRESSION(S): Severe sepsis, leukocytosis, bandemia, tachypnea, hyperkalemia, metabolic alkalosis, left lower lobe pneumonia Disclaimer: Inadvertent spelling and grammatical errors are likely due to EHR/dictation software use and do not reflect on the overall quality of patient care. Note that the electronic time recorded on this note does not necessarily reflect the actual time of the patient encounter. TONIA CUNHA MD May 18, 2019 10:37
--- NOTE | 2019-05-18 10:44 | HP ---
Date/Time of Note Date/Time of Note DATE: 05/18/19 TIME: 10:39 Assessment/Plan VTE Prophylaxis Pharmacological prophylaxis: heparin Lines/Catheters IV Catheter Type (from Nrsg): Saline Lock Assessment/Plan Assessment/Plan 1. Acute on chronic encephalopathy -Patient was just discharged from here 2 days ago. At that time MRI of the brain shows old infarct and questionable microbleed -Today CT shows chronic infarct without acute findings -Obtain MRI of the brain to see if any interval change -Etiology could be from sepsis versus CO2 narcosis -ABG 2. Hypoxia: Patient with a history of asthma -Chest x-ray shows probable chronic interstitial pulmonary disease -Supplemental oxygen, bronchodilators, steroid -Check ABG 3. Probable sepsis: IV antibiotic. Follow-up culture results Result Diagram: 05/18/19 0506 05/18/19 0506 Results 24hrs Laboratory Tests Test 05/17/19 22:40 05/18/19 00:30 05/18/19 05:06 05/18/19 09:30 White Blood Count 16.1 #H 19.9 #H Red Blood Count 4.65 L 4.67 L Hemoglobin 14.2 14.2 Hematocrit 45.3 46.8 Mean Corpuscular 97.4 100.2 Volume Mean Corpuscular 30.5 30.4 Hemoglobin Mean Corpuscular 31.3 L 30.3 L Hemoglobin Concen t Red Cell 14.4 14.6 H Distribution Width Platelet Count 249 255 Mean Platelet 10.0 10.1 Volume Immature 0.900 H 1.400 H Granulocytes % Neutrophils % 90.9 H Lymphocytes % 2.0 L Monocytes % 6.0 Eosinophils % 0.0 Basophils % 0.2 Nucleated Red 0.0 0.0 Blood Cells % Immature 0.150 H 0.270 H Granulocytes # Neutrophils # 14.6 H Lymphocytes # 0.3 L Monocytes # 1.0 H Eosinophils # 0.0 Basophils # 0.0 Nucleated Red 0.0 Blood Cells # Prothrombin Time 14.5 Prothrombin Time 1.1 Ratio INR International 1.12 Normalized Ratio Activated 32.6 Partial Thrombopl ast Time Sodium Level 136 139 Potassium Level 4.8 5.5 H Chloride Level 97 99 Carbon Dioxide 32 H 35 H Level Anion Gap 7 5 Blood Urea 28 H 32 H Nitrogen Creatinine 0.66 0.72 Est Glomerular Filtrat Rate mL/min Glucose Level 152 186 Calcium Level 9.8 9.6 Urine Color YELLOW Urine Clarity CLEAR Urine pH 5.0 Urine Specific 1.013 [place] Urine Ketones NEGATIVE Urine Nitrite NEGATIVE Urine Bilirubin NEGATIVE Urine NEGATIVE Urobilinogen Urine Leukocyte NEGATIVE Esterase Urine Microscopic 173 H RBC Urine Microscopic 2 WBC Urine Hemoglobin 3+ H Urine Glucose NEGATIVE Urine Total NEGATIVE Protein Segmented 49 Neutrophils % (Manual) Band Neutrophils 47 H % (Manual) Lymphocytes % 1 L (Manual) Monocytes % 3 (Manual) Neutrophils # 11.6 H (Manual) Band Neutrophils 9.3 H # Lymphocytes 0.1 L (Manual) Monocytes # 0.5 (Manual) Platelet Estimate NORMAL Poikilocytosis 3+ Anisocytosis 1+ Microcytosis 1+ Tear Drop Cells 1+ Magnesium Level 2.1 Total Bilirubin 0.3 Direct Bilirubin 0.00 Indirect 0.3 Bilirubin Aspartate Amino 41 Transf (AST/SGOT) Alanine 52 Aminotransferase (ALT/SGPT) Alkaline 52 Phosphatase Total Protein 6.8 Albumin 3.7 Globulin 3.10 Albumin/Globulin 1.19 Ratio Blood Gas Blood arterial Specimen Source Arterial Blood 05/18/2019 9:33:5 Date Drawn 7 AM Arterial Blood pH 7.060 *L (Temp corrected) Arterial Blood 142.0 *H pCO2 (Temp correct) Arterial Blood 104.2 H pO2 (Temp corrected) Arterial Blood 39.3 H HCO3 Arterial Blood 3.5 H Base Excess Arterial Blood 97.1 Oxygen Saturation Joe Test ACCEPTAB Arterial Blood Right Radial Gas Puncture Site Arterial 0.6 Blood Carboxyhemo globin Arterial Blood 0.5 Methemoglobin Oxyhemoglobin 96.0 Percent Blood Gas 37.0 Temperature Blood Gas NASAL CANNULA Modality FiO2 33.[address] Leah CUNHA Critical Value Read Back Blood Gas TM Notified Whom Blood Gas 05/18/2019 9:42:3 Notified Time 7 AM HPI/ROS Admit Date/Time Admit Date/Time Hx of Present Illness Patient is an 84-year-old male with a history of hypertension, asthma, CVA who was sent from SNF for worsening mentation. Patient was just discharged from here 2 days ago. During recent hospitalization he was found to be altered. 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 Patient was evaluated by a neurosurgeon and no intervention was done. Patient was cleared for aspirin. Patient was discharged to SNF and now he is sent back because of worsening mentation. Patient is currently nonverbal, eyes closed. Does not react much to sternal rub. Initially presented with oxygen saturation of 82%, currently vitals are stable. Head CT shows chronic lacunar infarct, moderate to severe chronic microvascular ischemic changes, but no acute findings PMH/Family/Social Past Medical History Past Surgical Hx: other (see HPI) Family History Significant Family History: no pertinent family hx Social History Alcohol Use: none Smoking Status: Never smoker Drug Use: none Exam Constitutional: No acute distress Head: normocephalic, atraumatic Eyes: EOMI, PERRL Respiratory: no distress Cardiovascular: regular rate and rhythm Gastrointestinal: soft Extremities: normal pulses Medications Current Medications Ondansetron HCl (Zofran Inj) 4 mg ER BRIDGE PRN IV NAUSEA/VOMITING; Start 05/18/19 at 01:00; Stop 05/19/19 at 00:59 Acetaminophen (Tylenol Tab) 650 mg ER BRIDGE PRN PO .MILD PAIN 1-3 OR TEMP; Start 05/18/19 at 01:00; Stop 05/19/19 at 00:59 IV Flush (NS 3 ml) 3 ml PER PROTOCOL IV ; Start 05/18/19 at 02:00 Ondansetron HCl (Zofran Inj) 4 mg Q6H PRN IV NAUSEA/VOMITING; Start 05/18/19 at 02:00 Acetaminophen (Tylenol Tab) 650 mg Q6H PRN PO .PAIN 1-3 OR TEMP; Start 05/18/19 at 02:00 Amlodipine Besylate (Norvasc) 5 mg BID PO ; Start 05/18/19 at 09:00 Atorvastatin Calcium (Lipitor) 20 mg HS PO ; Start 05/18/19 at 21:00 Hydrochlorothiazide (Hydrochlorothiazide) 12.5 mg DAILY PO ; Start 05/18/19 at 0 9:00 Losartan Potassium (Cozaar) 25 mg BID PO ; Start 05/18/19 at 09:00 Metoprolol Tartrate (Lopressor) 25 mg BID PO ; Start 05/18/19 at 09:00 Albuterol/ Ipratropium (Duoneb) 3 ml Q6HWA RESP THERAPY HHN ; Start 05/18/19 at 14:00; Status UNV Albuterol/ Ipratropium (Duoneb) 3 ml Q2H RESP THERAPY PRN HHN wheezing; Start 05/18/19 at 09:30; Status UNV Budesonide (Pulmicort (Neb)) 0.5 mg BID RESP THERAPY HHN ; Start 05/18/19 at 20:00; Status UNV Piperacillin Sod/ Tazobactam Sod 100 ml @ 200 mls/hr Q6 IVPB ; Start 05/18/19 at 12:00; Status UNV Methylprednisolone Sodium Succinate (Solu-Medrol) 40 mg Q8 IV ; Start 05/18/19 at 14:00; Status UNV Dextrose/Sodium Chloride 1,000 ml @ 80 mls/hr [id number] IV ; Start 05/18/19 at 09:30 Sodium Chloride (NS) 1,970 ml BOLUS OVER 2 HOURS STAT IV* ; Start 05/18/19 at 10:20; Stop 05/18/19 at 10:21; Status UNV Vancomycin HCl 250 ml @ 125 mls/hr ONCE ONCE IVPB ; Start 05/18/19 at 10:30; Stop 05/18/19 at 12:29 Vancomycin HCl (Vanco Iv Per Pharmacy) VANCOMYCIN PER PHARMACY PER PROTOCOL XX ; Start 05/18/19 at 10:30; Status UNV Coded Allergies: No Known Allergy (Unverified , 05/10/19) Past Surgical History Past Surgical Hx: noncontributory Family History Significant Family History: heart disease Social History Smoking Status: Current every day smoker Exam/Review of Systems Vital Signs Vitals Vital Signs Date Temp Pulse Resp B/P (MAP) Pulse Ox O2 O2 Flow FiO2 Time Delivery Rate 05/18/19 71 20 100 100 10:27 05/18/19 97.6 117/56 Nasal 3.0 07:21 (76) Cannula KRISTIN BASS MD May 18, 2019 10:44
--- NOTE | 2019-05-18 10:44 | PN ---
Date/Time of Note Date/Time of Note DATE: 05/18/19 TIME: 10:42 Objective Vitals Vital Signs Date Temp Pulse Resp B/P (MAP) Pulse Ox O2 O2 Flow FiO2 Time Delivery Rate 05/18/19 71 20 100 100 10:27 05/18/19 97.6 117/56 Nasal 3.0 07:21 (76) Cannula Results Result Diagram: 05/18/19 0506 05/18/19 0506 Medications Medications Current Medications Ondansetron HCl (Zofran Inj) 4 mg ER BRIDGE PRN IV NAUSEA/VOMITING; Start 05/18/19 at 01:00; Stop 05/19/19 at 00:59 Acetaminophen (Tylenol Tab) 650 mg ER BRIDGE PRN PO .MILD PAIN 1-3 OR TEMP; Start 05/18/19 at 01:00; Stop 05/19/19 at 00:59 IV Flush (NS 3 ml) 3 ml PER PROTOCOL IV ; Start 05/18/19 at 02:00 Ondansetron HCl (Zofran Inj) 4 mg Q6H PRN IV NAUSEA/VOMITING; Start 05/18/19 at 02:00 Acetaminophen (Tylenol Tab) 650 mg Q6H PRN PO .PAIN 1-3 OR TEMP; Start 05/18/19 at 02:00 Amlodipine Besylate (Norvasc) 5 mg BID PO ; Start 05/18/19 at 09:00 Atorvastatin Calcium (Lipitor) 20 mg HS PO ; Start 05/18/19 at 21:00 Hydrochlorothiazide (Hydrochlorothiazide) 12.5 mg DAILY PO ; Start 05/18/19 at 09:00 Losartan Potassium (Cozaar) 25 mg BID PO ; Start 05/18/19 at 09:00 Metoprolol Tartrate (Lopressor) 25 mg BID PO ; Start 05/18/19 at 09:00 Albuterol/ Ipratropium (Duoneb) 3 ml Q6HWA RESP THERAPY HHN ; Start 05/18/19 at 14:00; Status UNV Albuterol/ Ipratropium (Duoneb) 3 ml Q2H RESP THERAPY PRN HHN wheezing; Start 05/18/19 at 09:30; Status UNV Budesonide (Pulmicort (Neb)) 0.5 mg BID RESP THERAPY HHN ; Start 05/18/19 at 20:00; Status UNV Piperacillin Sod/ Tazobactam Sod 100 ml @ 200 mls/hr Q6 IVPB ; Start 05/18/19 at 12:00; Status UNV Methylprednisolone Sodium Succinate (Solu-Medrol) 40 mg Q8 IV ; Start 05/18/19 at 14:00; Status UNV Dextrose/Sodium Chloride 1,000 ml @ 80 mls/hr [id number] IV ; Start 05/18/19 at 09:30 Sodium Chloride (NS) 1,970 ml BOLUS OVER 2 HOURS STAT IV* ; Start 05/18/19 at 10:20; Stop 05/18/19 at 10:21; Status UNV Vancomycin HCl 250 ml @ 125 mls/hr ONCE ONCE IVPB ; Start 05/18/19 at 10:30; Stop 05/18/19 at 12:29 Vancomycin HCl (Vanco Iv Per Pharmacy) VANCOMYCIN PER PHARMACY PER PROTOCOL XX ; Start 05/18/19 at 10:30; Status UNV Fentanyl 100 ml @ 2.5 mls/hr PER PROTOCOL IV ; Start 05/18/19 at 11:00; Status UNV Hydralazine HCl (Apresoline) 10 mg Q4H PRN IV sbp >160; Start 05/18/19 at 11:00; Status UNV Lines/Catheters IV Catheter Type: Hernández in Place: No Assessment/Plan Hospital Course Subjective Patient is now intubated, still altered Objective Physical exam General: Patient is laying in bed intubated mentation: Patient is not alert oriented Head: Normocephalic atraumatic Eyes: EOMI, pupils reactive to light Neck: Supple, nontender, midline Respiratory: Clear to auscultation bilaterally Cardiovascular: regular rate, no obvious murmurs Gastrointestinal: non-tender to palpation, bowel sounds heard. Neurological: Moves all extremities spontaneously Skin: No new skin lesions Assessment and plan Acute hypoxic respiratory distress -Now intubated -Pulmonology on board -Possibly secondary to COPD exacerbation versus aspiration pneumonia COPD exacerbation -Patient does have a history of lung disease however unknown if he was having severe respiratory distress before altered mentation -Nebulizers, IV steroids -Pulmonology involved Possible aspiration pneumonia developing -Patient was altered, at risk of developing aspiration pneumonia -Broad-spectrum antibiotic -infectious disease consulted Acute encephalopathy -Patient baseline is alert and oriented x3 with some mild memory loss -CT head noted, no acute issues -Neurology consulted -Likely secondary to hypercapnia and respiratory depression however Hypertension -Continue home meds when able Mild cognitive impairment -Neurology on board -Baseline is alert and oriented x3, with some memory loss Mild carotid stenosis, right ICA -Continue on Plavix and statin Disposition -Sent to ICU, patient intubated, extubate when able More than 40 minutes of critical care time was spent on this evaluation VIRGEN MCQUEEN May 18, 2019 10:44
[2019-05-18] MEDS: CLOPIDOGREL 75 MG TAB GTB SCH (11:00)
[2019-05-18] MEDS: PIPER-TAZO 3.375 GM IV (PMX) 100 ML IVPB SCH ×3 (11:17→23:47)
--- NOTE | 2019-05-18 11:37 | CONS ---
Assessment/Plan Assessment/Plan Assessment/Plan (Daily) Chest x-ray showing emphysematous changes with left lower lobe pneumonia. ABG showing severe hypercapnic and hypoxemic respiratory failure. Ventilator setting; AC of 20, tidal volume 500, PEEP of 5, 100% FiO2. Assessment and recommendations; 1. Patient admitted with severe hypercapnic respiratory failure with bilateral pneumonia with left lower lobe predominance. Currently on appropriate treatment regimen. 2. Interval improvement after intubation patient however still has moderate hypercapnia. 3. Significant leukocytosis. 4. History of dementia. Continue current supportive care. Ventilator settings have been adjusted. Patient is currently on appropriate antimicrobial regimen. Obtain follow-up chest x-ray 24 hours. Assist control rate has been increased to 24 and FiO2 dropped down to 80%. Further recommendations regarding antibiotics to be done once culture results are obtained. 35 minutes of critical care time was spent evaluating patient. Consultation Date/Type/Reason Admit Date/Time Date of Consultation: May 18, 2019 Type of Consult Pulmonary/critical care Patient is an 84-year-old gentleman who was sent over from long term with altered mental status and severe hypoxemia. Upon evaluation patient was found to be in severe hypercapnic respiratory failure with pneumonia. Patient was intubated. By the time I saw him in ER, patient is orally intubated and is currently under paralytic and sedative effect. Patient however did not appear to be in any distress. History has been obtained from medical records. Past medical history; 1. Apparently advanced COPD. 2. Dementia. But the patient according to medical records is ambulatory and is usually awake and alert. Medications; reviewed. Allergies; none. Family history; not available. Social history; patient does have history of heavy smoking. Occupational history; not available. Review of system; not able to be obtained. General exam; elderly male, orally intubated, currently sedated. No distress noted. Date/Time of Note DATE: 05/18/19 TIME: 11:33 Past Medical History Home Meds Active Scripts Atorvastatin Calcium (Atorvastatin Calcium) 20 Mg Tablet, 20 MG PO HS for 30 Days, TAB Prov:VIRGEN MCQUEEN 05/16/19 Amlodipine Besylate* (Amlodipine Besylate*) 5 Mg Tablet, 5 MG PO BID for 30 Days, TAB Prov:VIRGEN MCQUEEN 05/16/19 Losartan Potassium* (Cozaar*) 25 Mg Tablet, 25 MG PO BID for 30 Days, TAB Prov:VIRGEN MCQUEEN 05/16/19 Hydrochlorothiazide (Hydrochlorothiazide) 12.5 Mg Capsule, 12.5 MG PO DAILY for 30 Days, CAP Prov:CHARISSEVIRGEN Hall 05/16/19 Reported Medications Budesonide-Formoterol Fumarate* (Symbicort*) 160-4.5 Hfa.aer.ad, 1 PUFF INH DAILY 05/10/19 Metoprolol Tartrate* (Lopressor*) 25 Mg Tablet, 1 TAB ORAL BID 05/10/19 Montelukast Sodium* (Montelukast Sodium*) 10 Mg Tablet, 1 TAB ORAL DAILY 05/10/19 Tiotropium [place]* (Spiriva*) 18 Mcg Cap.w.dev, 1 CAP INH DAILY 05/10/19 Discontinued Reported Medications Olmesartan/Amlodipin/Hcthiazid ([id number]-Pbegoc-Whhd 40-10-25Mg) 1 Each Tablet, 1 TAB ORAL DAILY 05/10/19 Medications Current Medications IV Flush (NS 3 ml) 3 ml PER PROTOCOL IV ; Start 05/18/19 at 02:00 Ondansetron HCl (Zofran Inj) 4 mg Q6H PRN IV NAUSEA/VOMITING; Start 05/18/19 at 02:00 Acetaminophen (Tylenol Tab) 650 mg Q6H PRN PO .PAIN 1-3 OR TEMP; Start 05/18/19 at 02:00 Amlodipine Besylate (Norvasc) 5 mg BID PO ; Start 05/18/19 at 09:00 Atorvastatin Calcium (Lipitor) 20 mg HS PO ; Start 05/18/19 at 21:00 Hydrochlorothiazide (Hydrochlorothiazide) 12.5 mg DAILY PO ; Start 05/18/19 at 09:00 Losartan Potassium (Cozaar) 25 mg BID PO ; Start 05/18/19 at 09:00 Metoprolol Tartrate (Lopressor) 25 mg BID PO ; Start 05/18/19 at 09:00 Albuterol/ Ipratropium (Duoneb) 3 ml Q6HWA RESP THERAPY HHN ; Start 05/18/19 at 14:00 Albuterol/ Ipratropium (Duoneb) 3 ml Q2H RESP THERAPY PRN HHN wheezing; Start 05/18/19 at 09:30 Budesonide (Pulmicort (Neb)) 0.5 mg BID RESP THERAPY HHN ; Start 05/18/19 at 20:00 Piperacillin Sod/ Tazobactam Sod 100 ml @ 200 mls/hr Q6 IVPB Last administered on 05/18/19at 11:17; Admin Dose 200 MLS/HR; Start 05/18/19 at 12:00 Methylprednisolone Sodium Succinate (Solu-Medrol) 40 mg Q8 IV ; Start 05/18/19 at 14:00 Dextrose/Sodium Chloride 1,000 ml @ 80 mls/hr [id number] IV ; Start 05/18/19 at 09:30 Vancomycin HCl 250 ml @ 125 mls/hr ONCE ONCE IVPB ; Start 05/18/19 at 10:30; Stop 05/18/19 at 12:29 Vancomycin HCl (Vanco Iv Per Pharmacy) VANCOMYCIN PER PHARMACY PER PROTOCOL XX ; Start 05/18/19 at 10:30 Fentanyl 100 ml @ 2.5 mls/hr PER PROTOCOL IV ; Start 05/18/19 at 11:00 Hydralazine HCl (Apresoline) 10 mg Q4H PRN IV sbp >160; Start 05/18/19 at 11:00 Clopidogrel Bisulfate (plaVIX) 75 mg DAILY GTB ; Start 05/18/19 at 11:00 Allergies: Coded Allergies: No Known Allergy (Unverified , 05/10/19) Past Surgical History Past Surgical Hx: noncontributory Social History Smoking Status: Current every day smoker Exam/Review of Systems Exam Vitals Vital Signs Date Temp Pulse Resp B/P (MAP) Pulse Ox O2 O2 Flow FiO2 Time Delivery Rate 05/18/19 80 11:30 05/18/19 71 20 100 10:27 05/18/19 97.6 117/56 Nasal 3.0 07:21 (76) Cannula Exam H ENT exam; supple neck, JVD difficult to see because of presence of ross. Orally intubated. Pupils are small bilaterally. No neck masses. Chest exam; diminished breath sounds throughout. S1-S2 audible, no murmurs. Regular rhythm. Abdomen exam; soft, no organomegaly. Umbilicus is mildly everted. Bowel sounds are audible. Extremity exam; no peripheral edema clubbing. Pulses 2+. [employer] EDITOR exam; patient is sedated. Results Result Diagram: 05/18/19 0506 05/18/19 0506 Results 24hrs Laboratory Tests Test 05/17/19 22:40 05/18/19 00:30 05/18/19 05:06 05/18/19 09:30 White Blood 16.1 #H 19.9 #H Count Red Blood Count 4.65 L 4.67 L Hemoglobin 14.2 14.2 Hematocrit 45.3 46.8 Mean Corpuscular 97.4 100.2 Volume Mean Corpuscular 30.5 30.4 Hemoglobin Mean Corpuscular 31.3 L 30.3 L Hemoglobin [place] nt Red Cell 14.4 14.6 H Distribution Width Platelet Count 249 255 Mean Platelet 10.0 10.1 Volume Immature 0.900 H 1.400 H Granulocytes % Neutrophils % 90.9 H Lymphocytes % 2.0 L Monocytes % 6.0 Eosinophils % 0.0 Basophils % 0.2 Nucleated Red 0.0 0.0 Blood Cells % Immature 0.150 H 0.270 H Granulocytes # Neutrophils # 14.6 H Lymphocytes # 0.3 L Monocytes # 1.0 H Eosinophils # 0.0 Basophils # 0.0 Nucleated Red 0.0 Blood Cells # Prothrombin Time 14.5 Prothrombin Time 1.1 Ratio INR 1.12 International Normalized Ratio Activated 32.6 Partial Thrombop last Time Sodium Level 136 139 Potassium Level 4.8 5.5 H Chloride Level 97 99 Carbon Dioxide 32 H 35 H Level Anion Gap 7 5 Blood Urea 28 H 32 H Nitrogen Creatinine 0.66 0.72 Est Glomerular Filtrat Rate mL/min Glucose Level 152 186 Calcium Level 9.8 9.6 Urine Color YELLOW Urine Clarity CLEAR Urine pH 5.0 Urine Specific 1.013 [place] Urine Ketones NEGATIVE Urine Nitrite NEGATIVE Urine Bilirubin NEGATIVE Urine NEGATIVE Urobilinogen Urine Leukocyte NEGATIVE Esterase Urine 173 H Microscopic RBC Urine 2 Microscopic WBC Urine Hemoglobin 3+ H Urine Glucose NEGATIVE Urine Total NEGATIVE Protein Segmented 49 Neutrophils % (Manual) Band Neutrophils 47 H % (Manual) Lymphocytes % 1 L (Manual) Monocytes % 3 (Manual) Neutrophils # 11.6 H (Manual) Band Neutrophils 9.3 H # Lymphocytes 0.1 L (Manual) Monocytes # 0.5 (Manual) Platelet NORMAL Estimate Poikilocytosis 3+ Anisocytosis 1+ Microcytosis 1+ Tear Drop Cells 1+ Magnesium Level 2.1 Total Bilirubin 0.3 Direct Bilirubin 0.00 Indirect 0.3 Bilirubin Aspartate Amino 41 Transf (AST/SGOT ) Alanine 52 Aminotransferase (ALT/SGPT) Alkaline 52 Phosphatase Troponin I 0.031 Total Protein 6.8 Albumin 3.7 Globulin 3.10 Albumin/Globulin 1.19 Ratio Blood Gas Blood arterial Specimen Source Arterial Blood 05/18/2019 9:33: Date Drawn 57 AM Arterial Blood 7.060 *L pH (Temp corrected) Arterial Blood 142.0 *H pCO2 (Temp correct) Arterial Blood 104.2 H pO2 (Temp corrected) Arterial Blood 39.3 H HCO3 Arterial Blood 3.5 H Base Excess Arterial Blood 97.1 Oxygen Saturatio n Joe Test ACCEPTAB Arterial Blood Right Radial Gas Puncture Site Arterial 0.6 Blood Carboxyhem oglobin Arterial Blood 0.5 Methemoglobin Oxyhemoglobin 96.0 Percent Blood Gas 37.0 Temperature Blood Gas NASAL CANNULA Modality FiO2 33.[address] Leah CUNHA Critical Value Read Back Blood Gas TM Notified Whom Blood Gas 05/18/2019 9:42: Notified Time 37 AM Test 05/18/19 10:40 05/18/19 10:58 POC Venous 1.8 Lactate Blood Gas Blood arterial Specimen Source Arterial Blood 05/18/2019 11:00 Date Drawn :01 AM Arterial Blood 7.287 *L pH (Temp corrected) Arterial Blood 54.8 H pCO2 (Temp correct) Arterial Blood 93.4 H pO2 (Temp corrected) Arterial Blood 25.6 HCO3 Arterial Blood -1.8 Base Excess Arterial Blood 97.6 Oxygen Saturatio n Joe Test ACCEPTAB Arterial Blood Right Radial Gas Puncture Site Arterial 0.2 Blood Carboxyhem oglobin Arterial Blood 0.3 Methemoglobin Blood Gas A-a O2 564.8 H Differential Oxyhemoglobin 97.1 Percent Blood Gas 37.0 Temperature Blood Gas 20.0 Respiration Rate Blood Gas Actual 20 Respiration Rate Blood Gas VENT - AC Modality FiO2 100.0 Blood Gas Tidal 500.0 Volume Blood Gas Low 5.0 PEEP Setting Blood Gas DR CUNHA Critical Value Read Back Blood Gas TM Notified Whom Blood Gas 05/18/2019 11:10 Notified Time :06 AM Medications Medication Current Medications IV Flush (NS 3 ml) 3 ml PER PROTOCOL IV ; Start 05/18/19 at 02:00 Ondansetron HCl (Zofran Inj) 4 mg Q6H PRN IV NAUSEA/VOMITING; Start 05/18/19 at 02:00 Acetaminophen (Tylenol Tab) 650 mg Q6H PRN PO .PAIN 1-3 OR TEMP; Start 05/18/19 at 02:00 Amlodipine Besylate (Norvasc) 5 mg BID PO ; Start 05/18/19 at 09:00 Atorvastatin Calcium (Lipitor) 20 mg HS PO ; Start 05/18/19 at 21:00 Hydrochlorothiazide (Hydrochlorothiazide) 12.5 mg DAILY PO ; Start 05/18/19 at 09:00 Losartan Potassium (Cozaar) 25 mg BID PO ; Start 05/18/19 at 09:00 Metoprolol Tartrate (Lopressor) 25 mg BID PO ; Start 05/18/19 at 09:00 Albuterol/ Ipratropium (Duoneb) 3 ml Q6HWA RESP THERAPY HHN ; Start 05/18/19 at 14:00 Albuterol/ Ipratropium (Duoneb) 3 ml Q2H RESP THERAPY PRN HHN wheezing; Start 05/18/19 at 09:30 Budesonide (Pulmicort (Neb)) 0.5 mg BID RESP THERAPY HHN ; Start 05/18/19 at 20:00 Piperacillin Sod/ Tazobactam Sod 100 ml @ 200 mls/hr Q6 IVPB Last administered on 05/18/19at 11:17; Admin Dose 200 MLS/HR; Start 05/18/19 at 12:00 Methylprednisolone Sodium Succinate (Solu-Medrol) 40 mg Q8 IV ; Start 05/18/19 at 14:00 Dextrose/Sodium Chloride 1,000 ml @ 80 mls/hr [id number] IV ; Start 05/18/19 at 09:30 Vancomycin HCl 250 ml @ 125 mls/hr ONCE ONCE IVPB ; Start 05/18/19 at 10:30; Stop 05/18/19 at 12:29 Vancomycin HCl (Vanco Iv Per Pharmacy) VANCOMYCIN PER PHARMACY PER PROTOCOL XX ; Start 05/18/19 at 10:30 Fentanyl 100 ml @ 2.5 mls/hr PER PROTOCOL IV ; Start 05/18/19 at 11:00 Hydralazine HCl (Apresoline) 10 mg Q4H PRN IV sbp >160; Start 05/18/19 at 11:00 Clopidogrel Bisulfate (plaVIX) 75 mg DAILY GTB ; Start 05/18/19 at 11:00 JUAN F MATA May 18, 2019 11:37
--- NOTE | 2019-05-18 12:29 | CONS ---
DATE OF ADMISSION: 05/17/2019 DATE OF CONSULTATION: 05/18/2019 TYPE OF CONSULTATION: Infectious disease. REASON FOR CONSULTATION: Antibiotic management. HISTORY OF PRESENT ILLNESS: Zachariah Vázquez is an 84-year-old male who was brought in from [facility], lethargic with oxygen saturation of 84% on 6 liters of oxygen per minute via nasal ca nnula. The patient is recently discharged with benign prostatic hypertrophy. His past problems incl ude: 1. Hypertension. 2. Hyperlipidemia. 3. Status post cholecystectomy. 4. Asthma. The patient has numerous medical problems. PAST MEDICAL HISTORY: As outlined. FAMILY HISTORY: Noncontributory. SOCIAL HISTORY: He does drink alcohol. He does smoke cigarettes on a daily basis. No substance abu se that we know of. PHYSICAL EXAMINATION: GENERAL: He is an elderly male in no acute distress. VITAL SIGNS: Stable. He is afebrile. HOSPITAL COURSE: The patient's white count today is 19.9, H and H 14.2 and 46.8, platelet count 255, 000. BUN and creatinine 32/0.72. The patient was placed on vancomycin and Zosyn. He was intubated. The patient was altered. Currently, lying in bed in no acute distress, sedated, intubated. SKIN: Without generalized rash. HEENT: Within normal limits. NECK: Supple. LYMPH NODES: None palpable. CHEST: Decreased breath sounds at the bases. HEART: Without murmur or gallop. ABDOMEN: Soft, nontender, without organosplenomegaly or masses. EXTREMITIES: Without cyanosis, clubbing, or edema. RECTAL AND GENITAL: Deferred. NEUROLOGIC: The patient is sedated. IMPRESSION AND PLAN: Patient probably has chronic obstruction pulmonary exacerbation versus aspirati on pneumonia. His chest x-ray on admission showed bilateral interstitial pulmonary disease and today he has an endotracheal tube in place, increased left lower lobe airspace opacity represents pneumoni a or aspiration pneumonitis with small left pleural effusion, mild right infrahilar opacities unchang ed. 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 Urine was negative for nitrite and leukocyte esterase. Therefore, we are dealing with probable aspiration pneumonia. The patient currently intubated on vancomycin and Zosyn. Blood cultures were done x4. He had sputum since he is intubated. I will dictate my findings to t hospitalist and to pulmonary. Dictated By: FROY HURT MD, JD/JASWINDER Conf#: [id number] DID#: [id number]
[2019-05-18] MEDS ORDERED: LIDOCAINE 1% (MPF) 5 ML VIAL SC ONE (12:30)
[2019-05-18] MEDS: hydrALAzine 20 MG INJ IV PRN (13:10)
[2019-05-18] MEDS: FENTAnyl (DRIP) 1000 mcg/100mL 100 ML IV SCH (13:33)
[2019-05-18] MEDS ORDERED: ALBUTEROL/IPRATROPIUM (NEB) 3 ML AMP HHN SCH (14:00)
[2019-05-18] MEDS: METHYLPREDNISOLONE 40 MG INJ IV SCH ×2 (14:11→23:47)
--- NOTE | 2019-05-18 14:53 | CONSI ---
Assessment/Plan Assessment/Plan Assessment/Plan (Recall) 84 M c/ HTN, and probable mild cognitive impairment...who presents for evaluation of ams. Noted to be severely hypercapnic...prompting intubation for mechanical ventilation.. The clinical picture is, thus, consistent w/ an acute toxic-metabolic encephalopathy.. A focal MANAGER SHIP process is unlikely... Head CT is negative for acute intracranial pathology.. P: Add on UDS to am if able.. Other medical management and supportive care per primary Wean sedation as soon as able asa/lipitor daily is sufficient for secondary stroke prevention.. Will follow clinically, to recommend additional neurologic studies as necessary Consultation Date/Type/Reason Admit Date/Time Type of Consult Neurology Reason for Consultation ams Requesting Provider: VIRGEN MCQUEEN Date/Time of Note DATE: 05/18/19 TIME: 14:47 Hx of Present Illness Patient is unable to contribute a Hx 2/2 respiratory failure. It is elsewhere noted: Patient is an 84-year-old male with a history of hypertension, asthma, CVA who was sent from SNF for worsening mentation. Patient was just discharged from here 2 days ago. During recent hospitalization he was found to be altered. 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 Patient was evaluated by a neurosurgeon and no intervention was done. Patient was cleared for aspirin. Patient was discharged to SNF and now he is sent back because of worsening mentation. Patient is currently nonverbal, eyes closed. Does not react much to sternal rub. Initially presented with oxygen saturation of 82%, currently vitals are stable. Head CT shows chronic lacunar infarct, moderate to severe chronic microvascular ischemic changes, but no acute findings limited by ams Objective Exam Vitals Vital Signs Date Temp Pulse Resp B/P (MAP) Pulse Ox O2 O2 Flow FiO2 Time Delivery Rate 05/18/19 86 24 99 60 13:36 05/18/19 97.5 113/86 Mechanical 12:30 (95) Ventilator Nasal Cannula 05/18/19 3.0 10:00 Exam PE: Gen Appearance: No Apparent Distress HEENT: Intubated Cardiovascular: Regular rate Abdomen: Soft Extremities: Dry NE: The patient was lethargic, nonverbal. Cranial nerve examination was limited by mental status. Pupils were equal and reactive to light. There was no afferent pupillary defect. Funduscopic examination was limited. Face was grossly symmetric, w/ present corneal and cough reflexes. Tone was normal. Muscle bulk was normal. I did not see fasciculations. The patient moved his limbs spontaneously.. Coordination and gait testing was limited by mental status. Arm and leg reflexes were symmetric. Mcdonough's sign was absent. Plantar responses were flexor. Results Result Diagram: 05/18/19 0506 05/18/19 0506 Results 24hrs Laboratory Tests Test 05/17/19 22:40 05/18/19 00:30 05/18/19 05:06 05/18/19 09:30 White Blood 16.1 #H 19.9 #H Count Red Blood Count 4.65 L 4.67 L Hemoglobin 14.2 14.2 Hematocrit 45.3 46.8 Mean Corpuscular 97.4 100.2 Volume Mean Corpuscular 30.5 30.4 Hemoglobin Mean Corpuscular 31.3 L 30.3 L Hemoglobin Sagrario nt Red Cell 14.4 14.6 H Distribution Width Platelet Count 249 255 Mean Platelet 10.0 10.1 Volume Immature 0.900 H 1.400 H Granulocytes % Neutrophils % 90.9 H Lymphocytes % 2.0 L Monocytes % 6.0 Eosinophils % 0.0 Basophils % 0.2 Nucleated Red 0.0 0.0 Blood Cells % Immature 0.150 H 0.270 H Granulocytes # Neutrophils # 14.6 H Lymphocytes # 0.3 L Monocytes # 1.0 H Eosinophils # 0.0 Basophils # 0.0 Nucleated Red 0.0 Blood Cells # Prothrombin Time 14.5 Prothrombin Time 1.1 Ratio INR 1.12 International Normalized Ratio Activated 32.6 Partial Thrombop last Time Sodium Level 136 139 Potassium Level 4.8 5.5 H Chloride Level 97 99 Carbon Dioxide 32 H 35 H Level Anion Gap 7 5 Blood Urea 28 H 32 H Nitrogen Creatinine 0.66 0.72 Est Glomerular Filtrat Rate mL/min Glucose Level 152 186 Calcium Level 9.8 9.6 Urine Color YELLOW Urine Clarity CLEAR Urine pH 5.0 Urine Specific 1.013 [place] Urine Ketones NEGATIVE Urine Nitrite NEGATIVE Urine Bilirubin NEGATIVE Urine NEGATIVE Urobilinogen Urine Leukocyte NEGATIVE Esterase Urine 173 H Microscopic RBC Urine 2 Microscopic WBC Urine Hemoglobin 3+ H Urine Glucose NEGATIVE Urine Total NEGATIVE Protein Segmented 49 Neutrophils % (Manual) Band Neutrophils 47 H % (Manual) Lymphocytes % 1 L (Manual) Monocytes % 3 (Manual) Neutrophils # 11.6 H (Manual) Band Neutrophils 9.3 H # Lymphocytes 0.1 L (Manual) Monocytes # 0.5 (Manual) Platelet NORMAL Estimate Poikilocytosis 3+ Anisocytosis 1+ Microcytosis 1+ Tear Drop Cells 1+ Magnesium Level 2.1 Total Bilirubin 0.3 Direct Bilirubin 0.00 Indirect 0.3 Bilirubin Aspartate Amino 41 Transf (AST/SGOT ) Alanine 52 Aminotransferase (ALT/SGPT) Alkaline 52 Phosphatase Troponin I 0.031 Total Protein 6.8 Albumin 3.7 Globulin 3.10 Albumin/Globulin 1.19 Ratio Blood Gas Blood arterial Specimen Source Arterial Blood 05/18/2019 9:33: Date Drawn 57 AM Arterial Blood 7.060 *L pH (Temp corrected) Arterial Blood 142.0 *H pCO2 (Temp correct) Arterial Blood 104.2 H pO2 (Temp corrected) Arterial Blood 39.3 H HCO3 Arterial Blood 3.5 H Base Excess Arterial Blood 97.1 Oxygen Saturatio n Joe Test ACCEPTAB Arterial Blood Right Radial Gas Puncture Site Arterial 0.6 Blood Carboxyhem oglobin Arterial Blood 0.5 Methemoglobin Oxyhemoglobin 96.0 Percent Blood Gas 37.0 Temperature Blood Gas NASAL CANNULA Modality FiO2 33.[address] Leah CUNHA Critical Value Read Back Blood Gas TM Notified Whom Blood Gas 05/18/2019 9:42: Notified Time 37 AM Test 05/18/19 10:40 05/18/19 10:58 05/18/19 12:59 POC Venous 1.8 Lactate Blood Gas Blood arterial Specimen Source Arterial Blood 05/18/2019 11:00 Date Drawn :01 AM Arterial Blood 7.287 *L pH (Temp corrected) Arterial Blood 54.8 H pCO2 (Temp correct) Arterial Blood 93.4 H pO2 (Temp corrected) Arterial Blood 25.6 HCO3 Arterial Blood -1.8 Base Excess Arterial Blood 97.6 Oxygen Saturatio n Joe Test ACCEPTAB Arterial Blood Right Radial Gas Puncture Site Arterial 0.2 Blood Carboxyhem oglobin Arterial Blood 0.3 Methemoglobin Blood Gas A-a O2 564.8 H Differential Oxyhemoglobin 97.1 Percent Blood Gas 37.0 Temperature Blood Gas 20.0 Respiration Rate Blood Gas Actual 20 Respiration Rate Blood Gas VENT - AC Modality FiO2 100.0 Blood Gas Tidal 500.0 Volume Blood Gas Low 5.0 PEEP Setting Blood Gas DR CUNHA Critical Value Read Back Blood Gas TM Notified Whom Blood Gas 05/18/2019 11:10 Notified Time :06 AM Lactic Acid 8.5 *H Level Past Medical History reviewed Home Meds Active Scripts Atorvastatin Calcium (Atorvastatin Calcium) 20 Mg Tablet, 20 MG PO HS for 30 Days, TAB Prov:VIRGEN MCQUEEN 05/16/19 Reported Medications Mineral Oil* (Fleet* Mineral Oil Enema) 133 Ml Oil, 133 ML AR Q48H PRN for CONSTIPATION, ENEMA 05/18/19 Bisacodyl* (Dulcolax*) 5 Mg Tablet.dr, 10 MG PO DAILY PRN for CONSTIPATION, TAB 05/18/19 Magnesium Hydroxide* (Milk Of Magnesia*) 400 Mg/5 Ml Oral.susp, 30 ML PO QHS PRN for CONSTIPATION, ML 05/18/19 Docusate Sodium* (Colace*) 100 Mg Capsule, 200 MG PO QHS, #30 CAP 05/18/19 Acetaminophen* (Acetaminophen*) 500 MG Extra Strength Tablet, 1000 MG PO Q6H PRN for MILD PAIN(1-3)OR ELEVATED TEMP, TAB 05/18/19 Acetaminophen* (Tylenol*) 325 Mg Tablet, 650 MG PO Q4H PRN for MILD PAIN LEVEL 1-3, TAB MILD PAIN, LOJA SCALE 1/10 - 3/10, OR FEVER ABOVE 100,(MAX 3 GRAMS PER 24 HOURS) 05/18/19 Acetaminophen* (Tylophen*) 500 Mg Capsule, 1000 MG PO TID PRN for PAIN, TAB 05/18/19 Nitroglycerin* (Nitrostat*) 0.4 Mg Tab.subl, 0.4 MG SL Q5MIN PRN for CHEST PAIN, BOTTLE 05/18/19 Albuterol Sulfate* (Albuterol Sulfate* Neb) 0.083%-3 Ml Neb, 2.5 MG NEB Q4H PRN for SHORTNESS OF BREATH, #30 VIAL 05/18/19 Calcium Carbonate* (Calcium Carbonate*) 600 MG Ca Tab, 500 MG PO QID PRN for GASTROINTESTINAL UPSET, TAB 05/18/19 Ascorbic Acid* (Vitamin C*) 500 Mg Capsule.sa, 500 MG PO DAILY, CAP 05/18/19 Multivitamins* (Theragran*) 1 Tab Tab, 1 TAB PO DAILY, TAB 05/18/19 Cran/Vitc/Mannose/Inulin/Brom (Uti-Stat Liquid) 3,875 Mg/30 Ml Liquid, 3875 MG PO DAILY 05/18/19 Cranberry Extract (Cranberry) 425 Mg Capsule, 425 MG PO DAILY, CAP 05/18/19 Thiamine* (Vitamin B-1*) 100 Mg Tablet, 100 MG PO DAILY, TAB 05/18/19 Fluticasone/Vilanterol (Breo Ellipta 200-25 Mcg INH) 1 Each Blst.w.dev, 1 PUFF INHALATION DAILY, #1 INHALER 05/18/19 Losartan Potassium* (Cozaar*) 25 Mg Tablet, 25 MG PO BID, #60 TAB 05/18/19 Hydrochlorothiazide* (Microzide*) 12.5 Mg Capsule, 12.5 MG PO DAILY, #30 CAP 05/18/19 Amlodipine Besylate* (Norvasc*) 5 Mg Tablet, 5 MG PO DAILY, TAB 05/18/19 Folic Acid* (Folic Acid*) 1 Mg Tablet, 1 MG PO DAILY, TAB 05/18/19 Budesonide-Formoterol Fumarate* (Symbicort*) 160-4.5 Hfa.aer.ad, 1 PUFF INH DAILY 05/10/19 Metoprolol Tartrate* (Lopressor*) 25 Mg Tablet, 1 TAB ORAL BID 05/10/19 Montelukast Sodium* (Montelukast Sodium*) 10 Mg Tablet, 1 TAB ORAL DAILY 05/10/19 Tiotropium Carmel* (Spiriva*) 18 Mcg Cap.w.dev, 1 CAP INH DAILY 05/10/19 Discontinued Reported Medications Olmesartan/Amlodipin/Hcthiazid ([id number] 40-10-25Mg) 1 Each Tablet, 1 TAB ORAL DAILY 05/10/19 Discontinued Scripts Amlodipine Besylate* (Amlodipine Besylate*) 5 Mg Tablet, 5 MG PO BID for 30 Days, TAB Prov:VIRGEN MCQUEEN 05/16/19 Losartan Potassium* (Cozaar*) 25 Mg Tablet, 25 MG PO BID for 30 Days, TAB Prov:VIRGEN MCQUEEN 05/16/19 Hydrochlorothiazide (Hydrochlorothiazide) 12.5 Mg Capsule, 12.5 MG PO DAILY for 30 Days, CAP Prov:VIRGEN MCQUEEN 05/16/19 Medications Current Medications IV Flush (NS 3 ml) 3 ml PER PROTOCOL IV ; Start 7/18/19 at 02:00 Ondansetron HCl (Zofran Inj) 4 mg Q6H PRN IV NAUSEA/VOMITING; Start 05/18/19 at 02:00 Acetaminophen (Tylenol Tab) 650 mg Q6H PRN PO .PAIN 1-3 OR TEMP; Start 05/18/19 at 02:00 Amlodipine Besylate (Norvasc) 5 mg BID PO ; Start 05/18/19 at 09:00 Atorvastatin Calcium (Lipitor) 20 mg HS PO ; Start 05/18/19 at 21:00 Hydrochlorothiazide (Hydrochlorothiazide) 12.5 mg DAILY PO ; Start 05/18/19 at 09:00 Losartan Potassium (Cozaar) 25 mg BID PO ; Start 05/18/19 at 09:00 Metoprolol Tartrate (Lopressor) 25 mg BID PO ; Start 05/18/19 at 09:00 Albuterol/ Ipratropium (Duoneb) 3 ml Q2H RESP THERAPY PRN HHN wheezing; Start 05/18/19 at 09:30 Budesonide (Pulmicort (Neb)) 0.5 mg BID RESP THERAPY HHN ; Start 05/18/19 at 20:00 Piperacillin Sod/ Tazobactam Sod 100 ml @ 200 mls/hr Q6 IVPB Last administered on 05/18/19at 11:17; Admin Dose 200 MLS/HR; Start 05/18/19 at 12:00 Methylprednisolone Sodium Succinate (Solu-Medrol) 40 mg Q8 IV Last administered on 05/18/19at 14:11; Admin Dose 40 MG; Start 05/18/19 at 14:00 Dextrose/Sodium Chloride 1,000 ml @ 80 mls/hr [id number] IV ; Start 05/18/19 at 09:30 Vancomycin HCl (Vanco Iv Per Pharmacy) VANCOMYCIN PER PHARMACY PER PROTOCOL XX ; Start 05/18/19 at 10:30 Fentanyl 100 ml @ 2.5 mls/hr PER PROTOCOL IV Last administered on 05/18/19at 13:33; Admin Dose 2.5 MLS/HR; Start 05/18/19 at 11:00 Hydralazine HCl (Apresoline) 10 mg Q4H PRN IV sbp >160 Last administered on 05/18/19at 13:10; Admin Dose 10 MG; Start 05/18/19 at 11:00 Clopidogrel Bisulfate (plaVIX) 75 mg DAILY GTB ; Start 05/18/19 at 11:00 Vancomycin HCl 250 ml @ 125 mls/hr Q24H IVPB ; Start 05/19/19 at 12:00 Albuterol (Ventolin Hfa) 4 puff Q4H RESP THERAPY INH ; Start 05/18/19 at 17:00 Ipratropium Carmel (Atrovent Hfa) 4 puff Q4H RESP THERAPY INH ; Start 05/18/19 at 17:00 Fentanyl (Sublimaze) 25 mcg ONCE ONCE IV ; Start 05/18/19 at 15:00; Stop 05/18/19 at 15:01 Lorazepam (Ativan) 1 mg ONCE ONCE IV ; Start 05/18/19 at 15:00; Stop 05/18/19 at 15:01 Allergies: Coded Allergies: No Known Allergy (Unverified , 05/10/19) Past Surgical History Past Surgical Hx: noncontributory Social History Smoking Status: Current every day smoker LUKAS SIMS May 18, 2019 14:53
[2019-05-18] MEDS ORDERED: LORAZEPAM 2 MG INJ IV ONE (15:00)
[2019-05-18] MEDS ORDERED: FENTAnyl 50 MCG/ML VIAL IV ONE (15:00)
[2019-05-18] MEDS ORDERED: SOD CHLORIDE 0.9% 500 ML IV ONE (16:00)
[2019-05-18] MEDS: SOD CHLORIDE 0.9% 1,000 ML IV SCH (16:02)
[2019-05-18] MEDS: IPRATROPIUM (HFA) 12.9 GM INHALER INH SCH ×2 (17:00→20:04)
[2019-05-18] MEDS: ALBUTEROL HFA 8 GM INHALER INH SCH ×2 (17:00→20:03)
--- NOTE | 2019-05-18 17:04 | CONS ---
Assessment/Plan Assessment/Plan Assessment/Plan (Daily) 1. acute hyperrkalemia 2. acute prerenal azotemia with Decreased urine output 3. acute hypercapnic respiratory failure, intubated on ventilator 4. H/o HTN 5. h/o HL Plan: Seen in ED< intubated on ventilator Rx for Hyperkalemia given IV abx zosyn and vancomycin , Renally dose all abx and monitor electorlytes Levophed for BP support pt home medication of amlodipine 5 mg po daily, MTP 25 mg BID and losartan 25 mg BID continued, Monitor BP and Give meds with holding parameters Expecting urine output to improve with IV abx Rx and Ventilator management THanks for consultation, I will continue to follow up Consultation Date/Type/Reason Admit Date/Time 05/17/19 Date of Consultation: May 18, 2019 Type of Consult NEPHROLOGY Reason for Consultation Acute hyperkalemia, Respiratory failure Requesting Provider: VIRGEN MCQUEEN Date/Time of Note DATE: 05/18/19 TIME: 17:03 Hx of Present Illness 84-year-old male with a history of hypertension, asthma, CVA who was sent from SNF for worsening mentation. Patient was just discharged from here 2 days ago. During recent hospitalization he was found to be altered. 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 Patient was evaluated by a neurosu rgeon and no intervention was done. Patient was cleared for aspirin. Patient was discharged to SNF and now he is sent back because of worsening mentation. Patient is currently nonverbal, eyes closed. Does not react much to sternal rub. Initially presented with oxygen saturation of 82% K 5.5 on admisison, BUN/Cr normal< renal has been consulted for Hyperkalemia and Fluid electrolyte management Currenlty non verbal due to intubatoi, pt has been evaluated by Pulmonary Subjective hx not possible: pt non-verbal Past Medical History Medical History: hypertension, other (Asthma, h/o CVA ) Home Meds Active Scripts Atorvastatin Calcium (Atorvastatin Calcium) 20 Mg Tablet, 20 MG PO HS for 30 Days, TAB Prov:VIRGEN MCQUEEN 05/16/19 Reported Medications Mineral Oil* (Fleet* Mineral Oil Enema) 133 Ml Oil, 133 ML WI Q48H PRN for CONSTIPATION, ENEMA 05/18/19 Bisacodyl* (Dulcolax*) 5 Mg Tablet.dr, 10 MG PO DAILY PRN for CONSTIPATION, TAB 05/18/19 Magnesium Hydroxide* (Milk Of Magnesia*) 400 Mg/5 Ml Oral.susp, 30 ML PO QHS PRN for CONSTIPATION, ML 05/18/19 Docusate Sodium* (Colace*) 100 Mg Capsule, 200 MG PO QHS, #30 CAP 05/18/19 Acetaminophen* (Acetaminophen*) 500 MG Extra Strength Tablet, 1000 MG PO Q6H PRN for MILD PAIN(1-3)OR ELEVATED TEMP, TAB 05/18/19 Acetaminophen* (Tylenol*) 325 Mg Tablet, 650 MG PO Q4H PRN for MILD PAIN LEVEL 1-3, TAB MILD PAIN, LOJA SCALE 1/10 - 3/10, OR FEVER ABOVE 100,(MAX 3 GRAMS PER 24 HOURS) 05/18/19 Acetaminophen* (Tylophen*) 500 Mg Capsule, 1000 MG PO TID PRN for PAIN, TAB 05/18/19 Nitroglycerin* (Nitrostat*) 0.4 Mg Tab.subl, 0.4 MG SL Q5MIN PRN for CHEST PAIN, BOTTLE 05/18/19 Albuterol Sulfate* (Albuterol Sulfate* Neb) 0.083%-3 Ml Neb, 2.5 MG NEB Q4H PRN for SHORTNESS OF BREATH, #30 VIAL 05/18/19 Calcium Carbonate* (Calcium Carbonate*) 600 MG Ca Tab, 500 MG PO QID PRN for GASTROINTESTINAL UPSET, TAB 05/18/19 Ascorbic Acid* (Vitamin C*) 500 Mg Capsule.sa, 500 MG PO DAILY, CAP 05/18/19 Multivitamins* (Theragran*) 1 Tab Tab, 1 TAB PO DAILY, TAB 05/18/19 Cran/Vitc/Mannose/Inulin/Brom (Uti-Stat Liquid) 3,875 Mg/30 Ml Liquid, 3875 MG PO DAILY 05/18/19 Cranberry Extract (Cranberry) 425 Mg Capsule, 425 MG PO DAILY, CAP 05/18/19 Thiamine* (Vitamin B-1*) 100 Mg Tablet, 100 MG PO DAILY, TAB 05/18/19 Fluticasone/Vilanterol (Breo Ellipta 200-25 Mcg INH) 1 Each Blst.w.dev, 1 PUFF INHALATION DAILY, #1 INHALER 05/18/19 Losartan Potassium* (Cozaar*) 25 Mg Tablet, 25 MG PO BID, #60 TAB 05/18/19 Hydrochlorothiazide* (Microzide*) 12.5 Mg Capsule, 12.5 MG PO DAILY, #30 CAP 05/18/19 Amlodipine Besylate* (Norvasc*) 5 Mg Tablet, 5 MG PO DAILY, TAB 05/18/19 Folic Acid* (Folic Acid*) 1 Mg Tablet, 1 MG PO DAILY, TAB 05/18/19 Budesonide-Formoterol Fumarate* (Symbicort*) 160-4.5 Hfa.aer.ad, 1 PUFF INH DAILY 05/10/19 Metoprolol Tartrate* (Lopressor*) 25 Mg Tablet, 1 TAB ORAL BID 05/10/19 Montelukast Sodium* (Montelukast Sodium*) 10 Mg Tablet, 1 TAB ORAL DAILY 05/10/19 Tiotropium Foster* (Spiriva*) 18 Mcg Cap.w.dev, 1 CAP INH DAILY 05/10/19 Discontinued Reported Medications Olmesartan/Amlodipin/Hcthiazid (Bqsdpac-Lafied-Fyvx 40-10-25Mg) 1 Each Tablet, 1 TAB ORAL DAILY 05/10/19 Discontinued Scripts Amlodipine Besylate* (Amlodipine Besylate*) 5 Mg Tablet, 5 MG PO BID for 30 Days, TAB Prov:VIRGEN MCQUEEN 05/16/19 Losartan Potassium* (Cozaar*) 25 Mg Tablet, 25 MG PO BID for 30 Days, TAB Prov:VIRGEN MCQUEEN 05/16/19 Hydrochlorothiazide (Hydrochlorothiazide) 12.5 Mg Capsule, 12.5 MG PO DAILY for 30 Days, CAP Prov:VIRGEN MCQUEEN 05/16/19 Medications Current Medications IV Flush (NS 3 ml) 3 ml PER PROTOCOL IV ; Start 05/18/19 at 02:00 Ondansetron HCl (Zofran Inj) 4 mg Q6H PRN IV NAUSEA/VOMITING; Start 05/18/19 at 02:00 Acetaminophen (Tylenol Tab) 650 mg Q6H PRN PO .PAIN 1-3 OR TEMP; Start 05/18/19 at 02:00 Amlodipine Besylate (Norvasc) 5 mg BID PO ; Start 05/18/19 at 09:00 Atorvastatin Calcium (Lipitor) 20 mg HS PO ; Start 05/18/19 at 21:00 Hydrochlorothiazide (Hydrochlorothiazide) 12.5 mg DAILY PO ; Start 05/18/19 at 09:00 Losartan Potassium (Cozaar) 25 mg BID PO ; Start 05/18/19 at 09:00 Metoprolol Tartrate (Lopressor) 25 mg BID PO ; Start 05/18/19 at 09:00 Albuterol/ Ipratropium (Duoneb) 3 ml Q2H RESP THERAPY PRN HHN wheezing; Start 05/18/19 at 09:30 Budesonide (Pulmicort (Neb)) 0.5 mg BID RESP THERAPY HHN ; Start 05/18/19 at 20:00 Piperacillin Sod/ Tazobactam Sod 100 ml @ 200 mls/hr Q6 IVPB Last administered on 05/18/19at 11:17; Admin Dose 200 MLS/HR; Start 05/18/19 at 12:00 Methylprednisolone Sodium Succinate (Solu-Medrol) 40 mg Q8 IV Last administered on 05/18/19at 14:11; Admin Dose 40 MG; Start 05/18/19 at 14:00 Vancomycin HCl (Vanco Iv Per Pharmacy) VANCOMYCIN PER PHARMACY PER PROTOCOL XX ; Start 05/18/19 at 10:30 Fentanyl 100 ml @ 2.5 mls/hr PER PROTOCOL IV Last administered on 05/18/19at 13:33; Admin Dose 2.5 MLS/HR; Start 05/18/19 at 11:00 Hydralazine HCl (Apresoline) 10 mg Q4H PRN IV sbp >160 Last administered on 05/18/19at 13:10; Admin Dose 10 MG; Start 05/18/19 at 11:00 Clopidogrel Bisulfate (plaVIX) 75 mg DAILY GTB ; Start 05/18/19 at 11:00 Vancomycin HCl 250 ml @ 125 mls/hr Q24H IVPB ; Start 05/19/19 at 09:00 Albuterol (Ventolin Hfa) 4 puff Q4H RESP THERAPY INH ; Start 05/18/19 at 17:00 Ipratropium Foster (Atrovent Hfa) 4 puff Q4H RESP THERAPY INH ; Start 05/18/19 at 17:00 Sodium Chloride 1,000 ml @ 100 mls/hr Q10H IV Last administered on 05/18/19at 16:02; Admin Dose 100 MLS/HR; Start 05/18/19 at 16:00 Norepinephrine 250 ml @ 1.875 mls/ hr TITRATE IV ; Start 05/18/19 at 16:00 Allergies: Coded Allergies: No Known Allergy (Unverified , 05/10/19) Past Surgical History Past Surgical Hx: noncontributory Family History Significant Family History: no pertinent family hx Social History Alcohol Use: none Smoking Status: Current every day smoker Drug Use: none Exam/Review of Systems Exam Vitals Vital Signs Date Temp Pulse Resp B/P (MAP) Pulse Ox O2 O2 Flow FiO2 Time Delivery Rate 05/18/19 97.6 64 24 86/48 (61) 100 Mechanical 17:00 Ventilator Nasal Cannula 05/18/19 60 15:33 05/18/19 3.0 10:00 Constitutional: non-verbal Head: normocephalic ENMT: intubated Neck: supple, non-tender Respiratory: congested cough, crackles/rales, diminished breath sounds Cardiovascular: regular rate and rhythm Gastrointestinal: soft, non-tender Musculoskeletal: muscle weakness, swelling (1+ edema ) Neurological: other (intubated sedated on ventilator ) Results Result Diagram: 05/18/19 0506 05/18/19 0506 Results 24hrs Laboratory Tests Test 05/17/19 22:40 05/18/19 00:30 05/18/19 05:06 05/18/19 09:30 White Blood 16.1 #H 19.9 #H Count Red Blood Count 4.65 L 4.67 L Hemoglobin 14.2 14.2 Hematocrit 45.3 46.8 Mean Corpuscular 97.4 100.2 Volume Mean Corpuscular 30.5 30.4 Hemoglobin Mean Corpuscular 31.3 L 30.3 L Hemoglobin [place] nt Red Cell 14.4 14.6 H Distribution Width Platelet Count 249 255 Mean Platelet 10.0 10.1 Volume Immature 0.900 H 1.400 H Granulocytes % Neutrophils % 90.9 H Lymphocytes % 2.0 L Monocytes % 6.0 Eosinophils % 0.0 Basophils % 0.2 Nucleated Red 0.0 0.0 Blood Cells % Immature 0.150 H 0.270 H Granulocytes # Neutrophils # 14.6 H Lymphocytes # 0.3 L Monocytes # 1.0 H Eosinophils # 0.0 Basophils # 0.0 Nucleated Red 0.0 Blood Cells # Prothrombin Time 14.5 Prothrombin Time 1.1 Ratio INR 1.12 International Normalized Ratio Activated 32.6 Partial Thrombop last Time Sodium Level 136 139 Potassium Level 4.8 5.5 H Chloride Level 97 99 Carbon Dioxide 32 H 35 H Level Anion Gap 7 5 Blood Urea 28 H 32 H Nitrogen Creatinine 0.66 0.72 Est Glomerular Filtrat Rate mL/min Glucose Level 152 186 Calcium Level 9.8 9.6 Urine Color YELLOW Urine Clarity CLEAR Urine pH 5.0 Urine Specific 1.013 [place] Urine Ketones NEGATIVE Urine Nitrite NEGATIVE Urine Bilirubin NEGATIVE Urine NEGATIVE Urobilinogen Urine Leukocyte NEGATIVE Esterase Urine 173 H Microscopic RBC Urine 2 Microscopic WBC Urine Hemoglobin 3+ H Urine Glucose NEGATIVE Urine Total NEGATIVE Protein Segmented 49 Neutrophils % (Manual) Band Neutrophils 47 H % (Manual) Lymphocytes % 1 L (Manual) Monocytes % 3 (Manual) Neutrophils # 11.6 H (Manual) Band Neutrophils 9.3 H # Lymphocytes 0.1 L (Manual) Monocytes # 0.5 (Manual) Platelet NORMAL Estimate Poikilocytosis 3+ Anisocytosis 1+ Microcytosis 1+ Tear Drop Cells 1+ Magnesium Level 2.1 Total Bilirubin 0.3 Direct Bilirubin 0.00 Indirect 0.3 Bilirubin Aspartate Amino 41 Transf (AST/SGOT ) Alanine 52 Aminotransferase (ALT/SGPT) Alkaline 52 Phosphatase Troponin I 0.031 Total Protein 6.8 Albumin 3.7 Globulin 3.10 Albumin/Globulin 1.19 Ratio Blood Gas Blood arterial Specimen Source Arterial Blood 05/18/2019 9:33: Date Drawn 57 AM Arterial Blood 7.060 *L pH (Temp corrected) Arterial Blood 142.0 *H pCO2 (Temp correct) Arterial Blood 104.2 H pO2 (Temp corrected) Arterial Blood 39.3 H HCO3 Arterial Blood 3.5 H Base Excess Arterial Blood 97.1 Oxygen Saturatio n Joe Test ACCEPTAB Arterial Blood Right Radial Gas Puncture Site Arterial 0.6 Blood Carboxyhem oglobin Arterial Blood 0.5 Methemoglobin Oxyhemoglobin 96.0 Percent Blood Gas 37.0 Temperature Blood Gas NASAL CANNULA Modality FiO2 33.[address] Leah CUNHA Critical Value Read Back Blood Gas TM Notified Whom Blood Gas 05/18/2019 9:42: Notified Time 37 AM Test 05/18/19 10:40 05/18/19 10:58 05/18/19 12:59 7/18/19 16:00 POC Venous 1.8 Lactate Blood Gas Blood arterial Specimen Source Arterial Blood 05/18/2019 11:00 Date Drawn :01 AM Arterial Blood 7.287 *L pH (Temp corrected) Arterial Blood 54.8 H pCO2 (Temp correct) Arterial Blood 93.4 H pO2 (Temp corrected) Arterial Blood 25.6 HCO3 Arterial Blood -1.8 Base Excess Arterial Blood 97.6 Oxygen Saturatio n Joe Test ACCEPTAB Arterial Blood Right Radial Gas Puncture Site Arterial 0.2 Blood Carboxyhem oglobin Arterial Blood 0.3 Methemoglobin Blood Gas A-a O2 564.8 H Differential Oxyhemoglobin 97.1 Percent Blood Gas 37.0 Temperature Blood Gas 20.0 Respiration Rate Blood Gas Actual 20 Respiration Rate Blood Gas VENT - AC Modality FiO2 100.0 Blood Gas Tidal 500.0 Volume Blood Gas Low 5.0 PEEP Setting Blood Gas DR CUNHA Critical Value Read Back Blood Gas TM Notified Whom Blood Gas 05/18/2019 11:10 Notified Time :06 AM Lactic Acid 8.5 *H 4.6 *H Level Plasma Potassium 4.6 Medications Medication Current Medications IV Flush (NS 3 ml) 3 ml PER PROTOCOL IV ; Start 05/18/19 at 02:00 Ondansetron HCl (Zofran Inj) 4 mg Q6H PRN IV NAUSEA/VOMITING; Start 05/18/19 at 02:00 Acetaminophen (Tylenol Tab) 650 mg Q6H PRN PO .PAIN 1-3 OR TEMP; Start 05/18/19 at 02:00 Amlodipine Besylate (Norvasc) 5 mg BID PO ; Start 05/18/19 at 09:00 Atorvastatin Calcium (Lipitor) 20 mg HS PO ; Start 05/18/19 at 21:00 Hydrochlorothiazide (Hydrochlorothiazide) 12.5 mg DAILY PO ; Start 05/18/19 at 09:00 Losartan Potassium (Cozaar) 25 mg BID PO ; Start 05/18/19 at 09:00 Metoprolol Tartrate (Lopressor) 25 mg BID PO ; Start 05/18/19 at 09:00 Albuterol/ Ipratropium (Duoneb) 3 ml Q2H RESP THERAPY PRN HHN wheezing; Start 05/18/19 at 09:30 Budesonide (Pulmicort (Neb)) 0.5 mg BID RESP THERAPY HHN ; Start 05/18/19 at 20:00 Piperacillin Sod/ Tazobactam Sod 100 ml @ 200 mls/hr Q6 IVPB Last administered on 05/18/19at 11:17; Admin Dose 200 MLS/HR; Start 05/18/19 at 12:00 Methylprednisolone Sodium Succinate (Solu-Medrol) 40 mg Q8 IV Last administered on 05/18/19at 14:11; Admin Dose 40 MG; Start 05/18/19 at 14:00 Vancomycin HCl (Vanco Iv Per Pharmacy) VANCOMYCIN PER PHARMACY PER PROTOCOL XX ; Start 05/18/19 at 10:30 Fentanyl 100 ml @ 2.5 mls/hr PER PROTOCOL IV Last administered on 05/18/19at 13:33; Admin Dose 2.5 MLS/HR; Start 05/18/19 at 11:00 Hydralazine HCl (Apresoline) 10 mg Q4H PRN IV sbp >160 Last administered on 05/18/19at 13:10; Admin Dose 10 MG; Start 05/18/19 at 11:00 Clopidogrel Bisulfate (plaVIX) 75 mg DAILY GTB ; Start 05/18/19 at 11:00 Vancomycin HCl 250 ml @ 125 mls/hr Q24H IVPB ; Start 05/19/19 at 09:00 Albuterol (Ventolin Hfa) 4 puff Q4H RESP THERAPY INH ; Start 05/18/19 at 17:00 Ipratropium Foster (Atrovent Hfa) 4 puff Q4H RESP THERAPY INH ; Start 05/18/19 at 17:00 Sodium Chloride 1,000 ml @ 100 mls/hr Q10H IV Last administered on 05/18/19at 16:02; Admin Dose 100 MLS/HR; Start 05/18/19 at 16:00 Norepinephrine 250 ml @ 1.875 mls/ hr TITRATE IV ; Start 05/18/19 at 16:00 EDGARD CLARKE MD May 18, 2019 17:04
[2019-05-18] MEDS ORDERED: IOHEXOL 100 ML ONE (17:27)
[2019-05-18] MEDS ORDERED: SOD CHLORIDE 0.9% 100 ML ONE (17:27)
[2019-05-18] MEDS: BUDESONIDE (NEB) 0.5MG/2ML AMP HHN SCH (19:53)
[2019-05-18] MEDS: ATORVASTATIN 20 MG TAB PO SCH (23:47)
[2019-05-19] VITALS (95 sets, daily range): BP systolic 60–167; BP diastolic 36–118; PULSE 48–130; RESP 15–39
[2019-05-19] MEDS: ALBUTEROL HFA 8 GM INHALER INH SCH ×5 (01:02→21:16)
[2019-05-19] MEDS: IPRATROPIUM (HFA) 12.9 GM INHALER INH SCH ×5 (01:02→21:16)
[2019-05-19] MEDS: NORepinephrine 8MG/250 ML (PMX 250 ML IV SCH ×2 (01:39→12:25)
[2019-05-19] MEDS: SOD CHLORIDE 0.9% 1,000 ML IV SCH ×3 (03:27→15:03)
[2019-05-19] MEDS: PIPER-TAZO 3.375 GM IV (PMX) 100 ML IVPB SCH ×2 (05:40→12:00)
[2019-05-19] MEDS: METHYLPREDNISOLONE 40 MG INJ IV SCH ×3 (05:40→21:54)
[2019-05-19] MEDS: FENTAnyl (DRIP) 1000 mcg/100mL 100 ML IV SCH (06:37)
--- NOTE | 2019-05-19 08:08 | CONS ---
Assessment/Plan Assessment/Plan Assessment/Plan (Daily) 1. acute hyperrkalemia 2. Acute kidney injury due to ATN from septic shock + prerenal azotemia 3. acute hypercapnic respiratory failure 2/2 Septic shock and PNA,, intubated on ventilator 4. H/o HTN 5. h/o HL 6. Septic shock due to bilateral PNA 7. Hypotension Plan: K normal today but Cr went upto 1.37- Other electorlytes stable IV abx Cefepime and Levaquin , Renally dose all abx and monitor electorlytes, ID following Levophed for BP support Cr bumped to 1.37- Stop HCTZ, amlodpine, Losartan and Metoprolol - monitor BP and wll resume one medication at a time will jeny garcia Consultation Date/Type/Reason Admit Date/Time May 18, 2019 at 00:50 Initial Consult Date 05/18/19 Type of Consult NEPHROLOGY Requesting Provider: VIRGEN MCQUEEN Date/Time of Note DATE: 05/19/19 TIME: 08:08 24 HR Interval Summary Free Text/Dictation Pt remains intubated, Cr went upto 1.37, BP low, Exam/Review of Systems Exam Vitals Vital Signs Date Temp Pulse Resp B/P (MAP) Pulse Ox O2 O2 Flow FiO2 Time Delivery Rate 05/19/19 96 25 95 06:45 05/19/19 117/49 06:30 (71) 05/19/19 40 04:45 05/19/19 98.8 04:00 05/18/19 Mechanical 20:00 Ventilator 05/18/19 3.0 10:00 Intake and Output 05/18/19 05/18/19 05/19/19 1515:00 23:00 07:00 IntakeIntake Total 1480.0 ml 910.000 ml OutputOutput Total 650 ml BalanceBalance 830.0 ml 910.000 ml Exam Constitutional: non-verbal ENMT: intubated Neck: supple, non-tender Respiratory: congested cough, crackles/rales, diminished breath sounds Cardiovascular: regular rate and rhythm Gastrointestinal: soft, non-tender Musculoskeletal: muscle weakness, swelling (1+ edema ) Neurological: other (intubated sedated on ventilator ) Results Result Diagram: 05/19/19 0418 05/19/19 0418 Results 24hrs Laboratory Tests Test 05/18/19 09:30 05/18/19 10:40 05/18/19 10:58 05/18/19 12:59 Blood Gas Blood arterial Blood Specimen arterial Source Arterial Blood 05/18/2019 9:33: 05/18/2019 11:0 Date Drawn 57 AM 0:01 AM Arterial Blood 7.060 *L 7.287 *L pH (Temp corrected ) Arterial Blood 142.0 *H 54.8 H pCO2 (Temp correct) Arterial Blood 104.2 H 93.4 H pO2 (Temp corrected ) Arterial Blood 39.3 H 25.6 HCO3 Arterial Blood 3.5 H -1.8 Base Excess Arterial Blood 97.1 97.6 Oxygen Saturati on Joe Test ACCEPTAB ACCEPTAB Arterial Blood Right Radial Right Radial Gas Puncture Site Arterial 0.6 0.2 Blood Carboxyhe moglobin Arterial Blood 0.5 0.3 Methemoglobin Oxyhemoglobin 96.0 97.1 Percent Blood Gas 37.0 37.0 Temperature Blood Gas NASAL CANNULA VENT - AC Modality FiO2 33.[address] Leah CUNHA Critical Value Read Back Blood Gas TM TM Notified Whom Blood Gas 05/18/2019 9:42: 05/18/2019 11:1 Notified Time 37 AM 0:06 AM POC Venous 1.8 Lactate Blood Gas A-a 564.8 H O2 Differential Blood Gas 20.0 Respiration Rate Blood Gas 20 Actual Respiration Rat e Blood Gas Tidal 500.0 Volume Blood Gas Low 5.0 PEEP Setting Lactic Acid 8.5 *H Level Test 05/18/19 16:00 05/18/19 17:15 05/19/19 04:00 05/19/19 04:18 Plasma 4.6 Potassium Lactic Acid 4.6 *H 1.8 Level Blood Gas Blood arterial Specimen Source Arterial Blood 05/18/2019 5:55: Date Drawn 08 PM Arterial Blood 7.317 L pH (Temp corrected ) Arterial Blood 43.7 pCO2 (Temp correct) Arterial Blood 113.7 H pO2 (Temp corrected ) Arterial Blood 21.9 L HCO3 Arterial Blood -4.2 L Base Excess Arterial Blood 98.2 Oxygen Saturati on Joe Test ACCEPTAB Arterial Blood Left Radial Gas Puncture Site Arterial 0.3 Blood Carboxyhe moglobin Arterial Blood 0.5 Methemoglobin Blood Gas A-a 193.6 H O2 Differential Oxyhemoglobin 97.4 Percent Blood Gas 37.0 Temperature Blood Gas 24.0 Respiration Rate Blood Gas 24 Actual Respiration Rat e Blood Gas VENT - AC Modality FiO2 50.0 Blood Gas Tidal 500.0 Volume Blood Gas Low 5.0 PEEP Setting Blood Gas Edith Notified Whom Blood Gas 05/18/2019 6:06: Notified Time 40 PM White Blood 13.7 #H Count Red Blood Count 3.54 #L Hemoglobin 10.8 #L Hematocrit 35.3 #L Mean 99.7 Corpuscular Volume Mean 30.5 Corpuscular Hemoglobin Mean 30.6 L Corpuscular Hemoglobin Conc ent Red Cell 15.0 H Distribution Width Platelet Count 257 Mean Platelet 10.3 Volume Immature 0.900 H Granulocytes % Neutrophils % Segmented 70 Neutrophils % (Manual) Band 26 H Neutrophils % (Manual) Monocytes % 2 (Manual) Eosinophils % Promyelocytes % 2 H (Manual) Nucleated Red 1 H Blood Cells % Immature 0.120 H Granulocytes # Neutrophils # Neutrophils # 10.1 H (Manual) Band 3.5 H Neutrophils # Monocytes # 0.2 L (Manual) Eosinophils # Promyelocytes # 0.2 H Platelet NORMAL Estimate Giant Platelets 1 H Poikilocytosis 1+ Spherocytes 1+ Sodium Level 138 Potassium Level 4.4 Chloride Level 108 Carbon Dioxide 24 # Level Anion Gap 6 Blood Urea 48 #H Nitrogen Creatinine 1.37 H Est Glomerular Filtrat Rate mL/min Glucose Level 213 Calcium Level 8.9 Phosphorus 2.0 L Level Magnesium Level 1.9 Medications Medication Current Medications IV Flush (NS 3 ml) 3 ml PER PROTOCOL IV ; Start 05/18/19 at 02:00 Ondansetron HCl (Zofran Inj) 4 mg Q6H PRN IV NAUSEA/VOMITING; Start 05/18/19 at 02:00 Acetaminophen (Tylenol Tab) 650 mg Q6H PRN PO .PAIN 1-3 OR TEMP; Start 05/18/19 at 02:00 Amlodipine Besylate (Norvasc) 5 mg BID PO ; Start 05/18/19 at 09:00 Atorvastatin Calcium (Lipitor) 20 mg HS PO Last administered on 05/18/19at 23:47; Admin Dose 20 MG; Start 05/18/19 at 21:00 Hydrochlorothiazide (Hydrochlorothiazide) 12.5 mg DAILY PO ; Start 05/18/19 at 09:00 Losartan Potassium (Cozaar) 25 mg BID PO ; Start 05/18/19 at 09:00 Metoprolol Tartrate (Lopressor) 25 mg BID PO ; Start 05/18/19 at 09:00 Albuterol/ Ipratropium (Duoneb) 3 ml Q2H RESP THERAPY PRN HHN wheezing; Start 05/18/19 at 09:30 Budesonide (Pulmicort (Neb)) 0.5 mg BID RESP THERAPY HHN Last administered on 05/18/19at 19:53; Admin Dose 0.5 MG; Start 05/18/19 at 20:00 Piperacillin Sod/ Tazobactam Sod 100 ml @ 200 mls/hr Q6 IVPB Last administered on 05/19/19 05:40; Admin Dose 200 MLS/HR; Start 05/18/19 at 12:00 Methylprednisolone Sodium Succinate (Solu-Medrol) 40 mg Q8 IV Last administered on 05/19/19 05:40; Admin Dose 40 MG; Start 05/18/19 at 14:00 Vancomycin HCl (Vanco Iv Per Pharmacy) VANCOMYCIN PER PHARMACY PER PROTOCOL XX ; Start 05/18/19 at 10:30 Fentanyl 100 ml @ 2.5 mls/hr PER PROTOCOL IV Last administered on 05/19/19 06:37; Admin Dose 5 MLS/HR; Start 05/18/19 at 11:00 Hydralazine HCl (Apresoline) 10 mg Q4H PRN IV sbp >160 Last administered on 05/18/19at 13:10; Admin Dose 10 MG; Start 05/18/19 at 11:00 Clopidogrel Bisulfate (plaVIX) 75 mg DAILY GTB ; Start 05/18/19 at 11:00 Vancomycin HCl 250 ml @ 125 mls/hr Q24H IVPB ; Start 05/19/19 at 09:00 Albuterol (Ventolin Hfa) 4 puff Q4H RESP THERAPY INH Last administered on 05/19/19 04:44; Admin Dose 4 PUFF; Start 05/18/19 at 17:00 Ipratropium [place] (Atrovent Hfa) 4 puff Q4H RESP THERAPY INH Last admi nistered on 05/19/19 04:44; Admin Dose 4 PUFF; Start 05/18/19 at 17:00 Sodium Chloride 1,000 ml @ 100 mls/hr Q10H IV Last administered on 05/19/19at 03:27; Admin Dose 100 MLS/HR; Start 05/18/19 at 16:00 Norepinephrine 250 ml @ 1.875 mls/ hr TITRATE IV Last administered on 05/19/19at 01:39; Admin Dose 9.375 MLS/HR; Start 05/18/19 at 16:00 IV Flush (NS 10 ml) 10 ml PRN PRN IV FLUSH LINE; Start 05/18/19 at 17:30 EDGARD CLARKE MD May 19, 2019 08:08
[2019-05-19] MEDS: AMLODIPINE 5 MG TAB PO SCH (09:00)
[2019-05-19] MEDS: METOPROLOL 25 MG TAB PO SCH (09:00)
[2019-05-19] MEDS ORDERED: VANCOMYCIN 1 GM 250 ML IVPB SCH (09:00)
[2019-05-19] MEDS: LOSARTAN 25 MG TAB PO SCH (09:00)
[2019-05-19] MEDS: HYDROCHLOROTHIAZIDE 12.5 MG CAP PO SCH (09:00)
--- NOTE | 2019-05-19 09:15 | PN ---
Date/Time of Note Date/Time of Note DATE: 05/19/19 TIME: 09:12 Objective Vitals Vital Signs Date Temp Pulse Resp B/P (MAP) Pulse Ox O2 O2 Flow FiO2 Time Delivery Rate 05/19/19 96 25 95 06:45 05/19/19 117/49 06:30 (71) 05/19/19 40 04:45 05/19/19 98.8 04:00 05/18/19 Mechanical 20:00 Ventilator 05/18/19 3.0 10:00 Intake and Output 05/18/19 05/18/19 05/19/19 1515:00 23:00 07:00 IntakeIntake Total 1480.0 ml 910.000 ml OutputOutput Total 650 ml BalanceBalance 830.0 ml 910.000 ml Results Result Diagram: 05/19/19 0418 05/19/19 0418 Medications Medications Current Medications IV Flush (NS 3 ml) 3 ml PER PROTOCOL IV ; Start 05/18/19 at 02:00 Ondansetron HCl (Zofran Inj) 4 mg Q6H PRN IV NAUSEA/VOMITING; Start 05/18/19 at 02:00 Acetaminophen (Tylenol Tab) 650 mg Q6H PRN PO .PAIN 1-3 OR TEMP; Start 05/18/19 at 02:00 Amlodipine Besylate (Norvasc) 5 mg BID PO ; Start 05/18/19 at 09:00 Atorvastatin Calcium (Lipitor) 20 mg HS PO Last administered on 05/18/19at 23 :47; Admin Dose 20 MG; Start 05/18/19 at 21:00 Hydrochlorothiazide (Hydrochlorothiazide) 12.5 mg DAILY PO ; Start 05/18/19 at 09:00 Losartan Potassium (Cozaar) 25 mg BID PO ; Start 05/18/19 at 09:00 Metoprolol Tartrate (Lopressor) 25 mg BID PO ; Start 05/18/19 at 09:00 Albuterol/ Ipratropium (Duoneb) 3 ml Q2H RESP THERAPY PRN HHN wheezing; Start 05/18/19 at 09:30 Budesonide (Pulmicort (Neb)) 0.5 mg BID RESP THERAPY HHN Last administered on 05/18/19at 19:53; Admin Dose 0.5 MG; Start 05/18/19 at 20:00 Piperacillin Sod/ Tazobactam Sod 100 ml @ 200 mls/hr Q6 IVPB Last administered on 05/19/19 05:40; Admin Dose 200 MLS/HR; Start 05/18/19 at 12:00 Methylprednisolone Sodium Succinate (Solu-Medrol) 40 mg Q8 IV Last administered on 05/19/19 05:40; Admin Dose 40 MG; Start 05/18/19 at 14:00 Vancomycin HCl (Vanco Iv Per Pharmacy) VANCOMYCIN PER PHARMACY PER PROTOCOL XX ; Start 05/18/19 at 10:30 Fentanyl 100 ml @ 2.5 mls/hr PER PROTOCOL IV Last administered on 05/19/19 06:37; Admin Dose 5 MLS/HR; Start 05/18/19 at 11:00 Hydralazine HCl (Apresoline) 10 mg Q4H PRN IV sbp >160 Last administered on 05/18/19 13:10; Admin Dose 10 MG; Start 05/18/19 at 11:00 Clopidogrel Bisulfate (plaVIX) 75 mg DAILY GTB ; Start 05/18/19 at 11:00 Vancomycin HCl 250 ml @ 125 mls/hr Q24H IVPB ; Start 05/19/19 at 09:00 Albuterol (Ventolin Hfa) 4 puff Q4H RESP THERAPY INH Last administered on 05/19/19 04:44; Admin Dose 4 PUFF; Start 05/18/19 at 17:00 Ipratropium [place] (Atrovent Hfa) 4 puff Q4H RESP THERAPY INH Last administered on 05/19/19 04:44; Admin Dose 4 PUFF; Start 05/18/19 at 17:00 Sodium Chloride 1,000 ml @ 80 mls/hr [id number] IV Last administered on 05/19/19 03:27; Admin Dose 100 MLS/HR; Start 05/18/19 at 16:00 Norepinephrine 250 ml @ 1.875 mls/ hr TITRATE IV Last administered on 05/19/19 01:39; Admin Dose 9.375 MLS/HR; Start 05/18/19 at 16:00 IV Flush (NS 10 ml) 10 ml PRN PRN IV FLUSH LINE; Start 05/18/19 at 17:30 VTE Prophylaxis Risk score (from Nsg)>0 risk: 9 SCD applied (from Nsg): Yes Lines/Catheters IV Catheter Type: Cabrales in Place: Yes Cont'd cabrales catheter reason: terminal illness/intractable pain Assessment/Plan Hospital Course Subjective Patient is alert on the vent, cognition has significantly improved compared to yesterday Objective Physical exam General: Patient is laying in bed intubated mentation: Patient is alert and somewhat oriented Head: Normocephalic atraumatic Eyes: EOMI, pupils reactive to light Neck: Supple, nontender, midline Respiratory: Coarse to auscultation bilaterally Cardiovascular: regular rate, no obvious murmurs Gastrointestinal: non-tender to palpation, bowel sounds heard. Neurological: Moves all extremities spontaneously Skin: No new skin lesions Assessment and plan Acute hypoxic respiratory distress -Now intubated -Pulmonology on board -Possibly secondary to COPD exacerbation versus aspiration pneumonia -CT chest ordered to give some more information as patient does have COPD however had no respiratory issues during previous admission which was only 2 days before readmission. COPD exacerbation -Patient does have a history of lung disease however unknown if he was having severe respiratory distress before altered mentation -Nebulizers, IV steroids -Pulmonology involved Possible aspiration pneumonia -Patient was altered, at risk of developing aspiration pneumonia -Broad-spectrum antibiotic -infectious disease consulted Acute encephalopathy, resolving -Patient baseline is alert and oriented x3 with some mild memory loss -CT head noted, no acute issues -Neurology consulted -Likely secondary to hypercapnia and respiratory depression however Acute kidney injury -Nephrology on board -Continue fluids Hypertension -Continue home meds when able Mild cognitive impairment -Neurology on board -Baseline is alert and oriented x3, with some memory loss Mild carotid stenosis, right ICA -Continue on Plavix and statin Disposition -Extubate when able More than 40 minutes of critical care time was spent on this evaluation VIRGEN MCQUEEN May 19, 2019 09:15
[2019-05-19] MEDS ORDERED: PROPOFOL 100 ML ONE (11:29)
--- NOTE | 2019-05-19 12:20 | CONS ---
Consult Date/Type/Reason Admit Date/Time May 18, 2019 at 00:50 Initial Consult Date 05/18/19 Type of Consult Pulmonary Requesting Provider: VIRGEN MCQUEEN Date/Time of Note DATE: 05/19/19 TIME: 12:14 Subjective Patient self extubated this morning required reintubation. Objective Vital Signs Date Temp Pulse Resp B/P (MAP) Pulse Ox O2 O2 Flow FiO2 Time Delivery Rate 05/19/19 122 33 152/89 100 Mechanical 10:00 (110) Ventilator 05/19/19 98.3 08:00 05/19/19 40 04:45 05/18/19 3.0 10:00 Intake and Output 05/18/19 05/18/19 05/19/19 1515:00 23:00 07:00 IntakeIntake Total 1480.0 ml 910.000 ml OutputOutput Total 650 ml BalanceBalance 830.0 ml 910.000 ml Exam GENERAL: Elderly appearing gentleman in our reintubated VITAL SIGNS: per chart NECK: Supple. No JVD or lymphadenopathy. CARDIAC EXAM: S1, S2. No added sounds or murmurs. CHEST: Diminished air entry bilaterally ABDOMEN: Soft, nontender. No guarding or rebound. EXTREMITIES: No cyanosis, clubbing or edema. NEUROLOGIC: Generalized weakness. No focal deficits. Vent Setting Ventilator Support Mode: AC Fraction of Inspired Oxygen pe: 40 Positive End Expiratory Pressu: 5.0 Results/Medications Result Diagram: 05/19/19 0418 05/19/19 0418 Results 24 hrs Laboratory Tests Test 05/18/19 12:59 05/18/19 16:00 05/18/19 17:15 05/19/19 04:00 Lactic Acid 8.5 *H 4.6 *H 1.8 Level Plasma Potassium 4.6 Blood Gas Blood arterial Specimen Source Arterial Blood 05/18/2019 5:55: Date Drawn 08 PM Arterial Blood 7.317 L pH (Temp corrected) Arterial Blood 43.7 pCO2 (Temp correct) Arterial Blood 113.7 H pO2 (Temp corrected) Arterial Blood 21.9 L HCO3 Arterial Blood -4.2 L Base Excess Arterial Blood 98.2 Oxygen Saturatio n Joe Test ACCEPTAB Arterial Blood Left Radial Gas Puncture Site Arterial 0.3 Blood Carboxyhem oglobin Arterial Blood 0.5 Methemoglobin Blood Gas A-a O2 193.6 H Differential Oxyhemoglobin 97.4 Percent Blood Gas 37.0 Temperature Blood Gas 24.0 Respiration Rate Blood Gas Actual 24 Respiration Rate Blood Gas VENT - AC Modality FiO2 50.0 Blood Gas Tidal 500.0 Volume Blood Gas Low 5.0 PEEP Setting Blood Gas M.D. Notified Whom Blood Gas 05/18/2019 6:06: Notified Time 40 PM Test 05/19/19 04:18 05/19/19 10:45 White Blood 13.7 #H Count Red Blood Count 3.54 #L Hemoglobin 10.8 #L Hematocrit 35.3 #L Mean Corpuscular 99.7 Volume Mean Corpuscular 30.5 Hemoglobin Mean Corpuscular 30.6 L Hemoglobin [place] nt Red Cell 15.0 H Distribution Width Platelet Count 257 Mean Platelet 10.3 Volume Immature 0.900 H Granulocytes % Neutrophils % Segmented 70 Neutrophils % (Manual) Band Neutrophils 26 H % (Manual) Monocytes % 2 (Manual) Eosinophils % Promyelocytes % 2 H (Manual) Nucleated Red 1 H Blood Cells % Immature 0.120 H Granulocytes # Neutrophils # Neutrophils # 10.1 H (Manual) Band Neutrophils 3.5 H # Monocytes # 0.2 L (Manual) Eosinophils # Promyelocytes # 0.2 H Platelet NORMAL Estimate Giant Platelets 1 H Poikilocytosis 1+ Spherocytes 1+ Sodium Level 138 Potassium Level 4.4 Chloride Level 108 Carbon Dioxide 24 # Level Anion Gap 6 Blood Urea 48 #H Nitrogen Creatinine 1.37 H Est Glomerular Filtrat Rate mL/min Glucose Level 213 Calcium Level 8.9 Phosphorus Level 2.0 L Magnesium Level 1.9 Blood Gas Blood arterial Specimen Source Arterial Blood 05/19/2019 10:31 Date Drawn :39 AM Arterial Blood 7.244 *L pH (Temp corrected) Arterial Blood 58.2 H pCO2 (Temp correct) Arterial Blood 91.2 H pO2 (Temp corrected) Arterial Blood 24.6 HCO3 Arterial Blood -3.5 L Base Excess Arterial Blood 96.0 Oxygen Saturatio n Joe Test ACCEPTAB Arterial Blood Right Radial Gas Puncture Site Arterial 0.3 Blood Carboxyhem oglobin Arterial Blood 0.4 Methemoglobin Blood Gas A-a O2 199.8 H Differential Oxyhemoglobin 95.3 Percent Blood Gas 37.0 Temperature Blood Gas MASK - VENTI Modality FiO2 50.0 Blood Gas LBRAZZLE RN Critical Value Read Back Blood Gas TM Notified Whom Blood Gas 05/19/2019 10:42 Notified Time :10 AM Medications Current Medications IV Flush (NS 3 ml) 3 ml PER PROTOCOL IV ; Start 05/18/19 at 02:00 Ondansetron HCl (Zofran Inj) 4 mg Q6H PRN IV NAUSEA/VOMITING; Start 05/18/19 at 02:00 Acetaminophen (Tylenol Tab) 650 mg Q6H PRN PO .PAIN 1-3 OR TEMP; Start 05/18/19 at 02:00 Amlodipine Besylate (Norvasc) 5 mg BID PO ; Start 05/18/19 at 09:00 Atorvastatin Calcium (Lipitor) 20 mg HS PO Last administered on 05/18/19at 23:47; Admin Dose 20 MG; Start 05/18/19 at 21:00 Hydrochlorothiazide (Hydrochlorothiazide) 12.5 mg DAILY PO ; Start 05/18/19 at 09:00 Losartan Potassium (Cozaar) 25 mg BID PO ; Start 05/18/19 at 09:00 Metoprolol Tartrate (Lopressor) 25 mg BID PO ; Start 05/18/19 at 09:00 Albuterol/ Ipratropium (Duoneb) 3 ml Q2H RESP THERAPY PRN HHN wheezing; Start 05/18/19 at 09:30 Budesonide (Pulmicort (Neb)) 0.5 mg BID RESP THERAPY HHN Last administered on 05/18/19at 19:53; Admin Dose 0.5 MG; Start 05/18/19 at 20:00 Piperacillin Sod/ Tazobactam Sod 100 ml @ 200 mls/hr Q6 IVPB Last administered on 05/19/19at 05:40; Admin Dose 200 MLS/HR; Start 05/18/19 at 12:00 Methylprednisolone Sodium Succinate (Solu-Medrol) 40 mg Q8 IV Last administered on 05/19/19at 05:40; Admin Dose 40 MG; Start 05/18/19 at 14:00 Vancomycin HCl (Vanco Iv Per Pharmacy) VANCOMYCIN PER PHARMACY PER PROTOCOL XX ; Start 05/18/19 at 10:30 Fentanyl 100 ml @ 2.5 mls/hr PER PROTOCOL IV Last administered on 05/19/19at 06:37; Admin Dose 5 MLS/HR; Start 05/18/19 at 11:00 Hydralazine HCl (Apresoline) 10 mg Q4H PRN IV sbp >160 Last administered on 05/18/19 13:10; Admin Dose 10 MG; Start 05/18/19 at 11:00 Clopidogrel Bisulfate (plaVIX) 75 mg DAILY GTB ; Start 05/18/19 at 11:00 Vancomycin HCl 250 ml @ 125 mls/hr Q24H IVPB ; Start 05/19/19 at 09:00 Albuterol (Ventolin Hfa) 4 puff Q4H RESP THERAPY INH Last administered on 05/19/19 04:44; Admin Dose 4 PUFF; Start 05/18/19 at 17:00 Ipratropium [place] (Atrovent Hfa) 4 puff Q4H RESP THERAPY INH Last administered on 05/19/19 04:44; Admin Dose 4 PUFF; Start 05/18/19 at 17:00 Sodium Chloride 1,000 ml @ 80 mls/hr [id number] IV Last administered on 05/19/19 03:27; Admin Dose 100 MLS/HR; Start 05/18/19 at 16:00 Norepinephrine 250 ml @ 1.875 mls/ hr TITRATE IV Last administered on 05/19/19 01:39; Admin Dose 9.375 MLS/HR; Start 05/18/19 at 16:00 IV Flush (NS 10 ml) 10 ml PRN PRN IV FLUSH LINE; Start 05/18/19 at 17:30 Propofol 100 ml @ 2.055 mls/ hr Q12H IV ; Start 05/19/19 at 11:30 Assessment/Plan Hospital Course (Demo Recall) Assessment 1. Acute hypoxemic and hypercapnic respiratory failure 2. Encephalopathy toxic metabolic 3. Aspiration versus community acquired pneumonia 4. Renal insufficiency Plan 1. Continue mechanical ventilation post reintubation 2. Tube feeding if tolerated 3. Vasopressors as needed 4. DVT GI prophylaxis Critical care time 45 minutes. ABDIRIZAK BLAIR MD, [facility] May 19, 2019 12:20
[2019-05-19] MEDS: PROPOFOL 100 ML IV SCH ×2 (12:42→16:13)
[2019-05-19] MEDS ORDERED: SOD CHLORIDE 0.9% 500 ML IV ONE (13:00)
--- NOTE | 2019-05-19 13:12 | SP ---
DATE OF PROCEDURE: 05/19/2019 NAME OF PROCEDURE: Endotracheal intubation. INDICATION: Hypoxemic and hypercapnic respiratory failure. DESCRIPTION OF PROCEDURE: Patient was placed in supine position, neck extended. Blood pressure, EKG and pulse oximetry continuously monitored. A 7.5 endotracheal tube was entered through the vocal co rds, secured at 24 cm to the lip. CO2 capnometer was immediately positive. A post-intubation chest x-ray and ABG have been requested. Dictated By: ABDIRIZAK BLAIR MD SV/NTS Conf#: [id number] DID#: [id number] CC: KRISTIN BASS MD;*EndCC*
--- NOTE | 2019-05-19 13:31 | CONS ---
Assessment/Plan Assessment/Plan Hospital Course (Demo Recall) Respiratory failure, status post intubation Shock/hypotension Encephalopathy Preserved left ventricular ejection fraction COPD Acute kidney injury Patient with altered mental status and respiratory failure leading to intubation Currently hypotensive with elevated lactate Titrate IV pressor to maintain SBP greater than 90 and/or map above 60 IV fluids DC all antihypertensives Antibiotics as per primary team Vent management as per pulmonary Consultation Date/Type/Reason Admit Date/Time May 18, 2019 at 00:50 Type of Consult Cardiology Reason for Consultation Respiratory failure Date/Time of Note DATE: 05/19/19 TIME: 13:26 Hx of Present Illness This is an 84-year-old male with a recent admission for atypical chest pain and discharge to care home facility. As per EMR, patient was brought back secondary to altered mental status and hypoxia. Patient with progressive worsening mental status requiring intubation. Discussion with nursing staff, it appears she self extubated and required reintubation. He is currently hypotensive and start on IV pressors. Unable to form at the current time given patient's mental status Past Medical History Carotid artery disease COPD Hypertension Medical History: hypertension Home Meds Active Scripts Atorvastatin Calcium (Atorvastatin Calcium) 20 Mg Tablet, 20 MG PO HS for 30 Days, TAB Prov:VIRGEN MCQUEEN 05/16/19 Reported Medications Mineral Oil* (Fleet* Mineral Oil Enema) 133 Ml Oil, 133 ML IN Q48H PRN for CONSTIPATION, ENEMA 05/18/19 Bisacodyl* (Dulcolax*) 5 Mg Tablet.dr, 10 MG PO DAILY PRN for CONSTIPATION, TAB 05/18/19 Magnesium Hydroxide* (Milk Of Magnesia*) 400 Mg/5 Ml Oral.susp, 30 ML PO QHS PRN for CONSTIPATION, ML 05/18/19 Docusate Sodium* (Colace*) 100 Mg Capsule, 200 MG PO QHS, #30 CAP 05/18/19 Acetaminophen* (Acetaminophen*) 500 MG Extra Strength Tablet, 1000 MG PO Q6H PRN for MILD PAIN(1-3)OR ELEVATED TEMP, TAB 05/18/19 Acetaminophen* (Tylenol*) 325 Mg Tablet, 650 MG PO Q4H PRN for MILD PAIN LEVEL 1-3, TAB MILD PAIN, LOJA SCALE 1/10 - 3/10, OR FEVER ABOVE 100,(MAX 3 GRAMS PER 24 HOURS) 05/18/19 Acetaminophen* (Tylophen*) 500 Mg Capsule, 1000 MG PO TID PRN for PAIN, TAB 05/18/19 Nitroglycerin* (Nitrostat*) 0.4 Mg Tab.subl, 0.4 MG SL Q5MIN PRN for CHEST PAIN, BOTTLE 05/18/19 Albuterol Sulfate* (Albuterol Sulfate* Neb) 0.083%-3 Ml Neb, 2.5 MG NEB Q4H PRN for SHORTNESS OF BREATH, #30 VIAL 05/18/19 Calcium Carbonate* (Calcium Carbonate*) 600 MG Ca Tab, 500 MG PO QID PRN for GASTROINTESTINAL UPSET, TAB 05/18/19 Ascorbic Acid* (Vitamin C*) 500 Mg Capsule.sa, 500 MG PO DAILY, CAP 05/18/19 Multivitamins* (Theragran*) 1 Tab Tab, 1 TAB PO DAILY, TAB 05/18/19 Cran/Vitc/Mannose/Inulin/Brom (Uti-Stat Liquid) 3,875 Mg/30 Ml Liquid, 3875 MG PO DAILY 05/18/19 Cranberry Extract (Cranberry) 425 Mg Capsule, 425 MG PO DAILY, CAP 05/18/19 Thiamine* (Vitamin B-1*) 100 Mg Tablet, 100 MG PO DAILY, TAB 05/18/19 Fluticasone/Vilanterol (Breo Ellipta 200-25 Mcg INH) 1 Each Blst.w.dev, 1 PUFF INHALATION DAILY, #1 INHALER 05/18/19 Losartan Potassium* (Cozaar*) 25 Mg Tablet, 25 MG PO BID, #60 TAB 05/18/19 Hydrochlorothiazide* (Microzide*) 12.5 Mg Capsule, 12.5 MG PO DAILY, #30 CAP 05/18/19 Amlodipine Besylate* (Norvasc*) 5 Mg Tablet, 5 MG PO DAILY, TAB 05/18/19 Folic Acid* (Folic Acid*) 1 Mg Tablet, 1 MG PO DAILY, TAB 05/18/19 Budesonide-Formoterol Fumarate* (Symbicort*) 160-4.5 Hfa.aer.ad, 1 PUFF INH DAILY 05/10/19 Metoprolol Tartrate* (Lopressor*) 25 Mg Tablet, 1 TAB ORAL BID 05/10/19 Montelukast Sodium* (Montelukast Sodium*) 10 Mg Tablet, 1 TAB ORAL DAILY 05/10/19 Tiotropium [place]* (Spiriva*) 18 Mcg Cap.w.dev, 1 CAP INH DAILY 05/10/19 Discontinued Reported Medications Olmesartan/Amlodipin/Hcthiazid (Leabmaj-Dcftii-Nfld 40-10-25Mg) 1 Each Tablet, 1 TAB ORAL DAILY 05/10/19 Discontinued Scripts Amlodipine Besylate* (Amlodipine Besylate*) 5 Mg Tablet, 5 MG PO BID for 30 Days , TAB Prov:VIRGEN MCQUEEN 05/16/19 Losartan Potassium* (Cozaar*) 25 Mg Tablet, 25 MG PO BID for 30 Days, TAB Prov:VIRGEN MCQUEEN 05/16/19 Hydrochlorothiazide (Hydrochlorothiazide) 12.5 Mg Capsule, 12.5 MG PO DAILY for 30 Days, CAP Prov:VIRGEN MCQUEEN 05/16/19 Medications Current Medications IV Flush (NS 3 ml) 3 ml PER PROTOCOL IV ; Start 05/18/19 at 02:00 Ondansetron HCl (Zofran Inj) 4 mg Q6H PRN IV NAUSEA/VOMITING; Start 05/18/19 at 02:00 Acetaminophen (Tylenol Tab) 650 mg Q6H PRN PO .PAIN 1-3 OR TEMP; Start 05/18/19 at 02:00 Amlodipine Besylate (Norvasc) 5 mg BID PO ; Start 05/18/19 at 09:00 Atorvastatin Calcium (Lipitor) 20 mg HS PO Last administered on 05/18/19at 23:47; Admin Dose 20 MG; Start 05/18/19 at 21:00 Hydrochlorothiazide (Hydrochlorothiazide) 12.5 mg DAILY PO ; Start 05/18/19 at 09:00 Losartan Potassium (Cozaar) 25 mg BID PO ; Start 05/18/19 at 09:00 Metoprolol Tartrate (Lopressor) 25 mg BID PO ; Start 05/18/19 at 09:00 Albuterol/ Ipratropium (Duoneb) 3 ml Q2H RESP THERAPY PRN HHN wheezing; Start 05/18/19 at 09:30 Budesonide (Pulmicort (Neb)) 0.5 mg BID RESP THERAPY HHN Last administered on 05/18/19at 19:53; Admin Dose 0.5 MG; Start 05/18/19 at 20:00 Methylprednisolone Sodium Succinate (Solu-Medrol) 40 mg Q8 IV Last administered on 05/19/19 05:40; Admin Dose 40 MG; Start 05/18/19 at 14:00 Fentanyl 100 ml @ 2.5 mls/hr PER PROTOCOL IV Last administered on 05/19/19 06:37; Admin Dose 5 MLS/HR; Start 05/18/19 at 11:00 Hydralazine HCl (Apresoline) 10 mg Q4H PRN IV sbp >160 Last administered on 05/18/19 13:10; Admin Dose 10 MG; Start 05/18/19 at 11:00 Clopidogrel Bisulfate (plaVIX) 75 mg DAILY GTB ; Start 05/18/19 at 11:00 Albuterol (Ventolin Hfa) 4 puff Q4H RESP THERAPY INH Last administered on 05/19/19 04:44; Admin Dose 4 PUFF; Start 05/18/19 at 17:00 Ipratropium [place] (Atrovent Hfa) 4 puff Q4H RESP THERAPY INH Last administered on 05/19/19 04:44; Admin Dose 4 PUFF; Start 05/18/19 at 17:00 Sodium Chloride 1,000 ml @ 100 mls/hr Q10H IV Last administered on 05/19/19 03:27; Admin Dose 100 MLS/HR; Start 05/18/19 at 16:00 Norepinephrine 250 ml @ 1.875 mls/ hr TITRATE IV Last administered on 05/19/19 12:25; Admin Dose 3.75 MLS/HR; Start 05/18/19 at 16:00 IV Flush (NS 10 ml) 10 ml PRN PRN IV FLUSH LINE; Start 05/18/19 at 17:30 Propofol 100 ml @ 2.055 mls/ hr Q12H IV Last administered on 05/19/19 12:42; Admin Dose 20.55 MLS/HR; Start 05/19/19 at 11:30 Sodium Chloride 500 ml @ 500 mls/hr Q1H ONCE IV Last administered on 05/19/19 13:00; Admin Dose 500 MLS/HR; Start 05/19/19 at 13:00; Stop 05/19/19 at 13:59 Levofloxacin/ Dextrose 100 ml @ 100 mls/hr Q24H IVPB ; Start 05/19/19 at 13:00; Status UNV Cefepime HCl 50 ml @ 100 mls/hr Q12 IVPB ; Start 05/19/19 at 13:00 Allergies: Coded Allergies: No Known Allergy (Unverified , 05/10/19) Past Surgical History Past Surgical Hx: noncontributory Social History Smoking Status: Current every day smoker Exam/Review of Systems Vital Signs Vitals Vital Signs Date Temp Pulse Resp B/P (MAP) Pulse Ox O2 O2 Flow FiO2 Time Delivery Rate 05/19/19 40 11:35 05/19/19 122 33 152/89 100 Mechanical 10:00 (110) Ventilator 05/19/19 98.3 08:00 05/18/19 3.0 10:00 Intake and Output 05/18/19 05/18/19 05/19/19 1515:00 23:00 07:00 IntakeIntake Total 1480.0 ml 910.000 ml OutputOutput Total 650 ml BalanceBalance 830.0 ml 910.000 ml Exam Exam Intubated and sedated, no apparent distress Head: normocephalic ENMT: intubated Respiratory: other (Coarse breath sounds bilaterally, no wheezing) Cardiovascular: regular rate and rhythm (S1-S2 heard) Gastrointestinal: soft, bowel sounds, other (No grimacing with palpation) Extremities: edema (No significant) Labs Result Diagram: 05/19/19 0418 05/19/19 0418 Results 24hrs Laboratory Tests Test 05/18/19 16:00 05/18/19 17:15 05/19/19 04:00 05/19/19 04:18 Plasma Potassium 4.6 Lactic Acid 4.6 *H 1.8 Level Blood Gas Blood arterial Specimen Source Arterial Blood 05/18/2019 5:55: Date Drawn 08 PM Arterial Blood 7.317 L pH (Temp corrected) Arterial Blood 43.7 pCO2 (Temp correct) Arterial Blood 113.7 H pO2 (Temp corrected) Arterial Blood 21.9 L HCO3 Arterial Blood -4.2 L Base Excess Arterial Blood 98.2 Oxygen Saturatio n Joe Test ACCEPTAB Arterial Blood Left Radial Gas Puncture Site Arterial 0.3 Blood Carboxyhem oglobin Arterial Blood 0.5 Methemoglobin Blood Gas A-a O2 193.6 H Differential Oxyhemoglobin 97.4 Percent Blood Gas 37.0 Temperature Blood Gas 24.0 Respiration Rate Blood Gas Actual 24 Respiration Rate Blood Gas VENT - AC Modality FiO2 50.0 Blood Gas Tidal 500.0 Volume Blood Gas Low 5.0 PEEP Setting Blood Gas M.D. Notified Whom Blood Gas 05/18/2019 6:06: Notified Time 40 PM White Blood 13.7 #H Count Red Blood Count 3.54 #L Hemoglobin 10.8 #L Hematocrit 35.3 #L Mean Corpuscular 99.7 Volume Mean Corpuscular 30.5 Hemoglobin Mean Corpuscular 30.6 L Hemoglobin [place] nt Red Cell 15.0 H Distribution Width Platelet Count 257 Mean Platelet 10.3 Volume Immature 0.900 H Granulocytes % Neutrophils % Segmented 70 Neutrophils % (Manual) Band Neutrophils 26 H % (Manual) Monocytes % 2 (Manual) Eosinophils % Promyelocytes % 2 H (Manual) Nucleated Red 1 H Blood Cells % Immature 0.120 H Granulocytes # Neutrophils # Neutrophils # 10.1 H (Manual) Band Neutrophils 3.5 H # Monocytes # 0.2 L (Manual) Eosinophils # Promyelocytes # 0.2 H Platelet NORMAL Estimate Giant Platelets 1 H Poikilocytosis 1+ Spherocytes 1+ Sodium Level 138 Potassium Level 4.4 Chloride Level 108 Carbon Dioxide 24 # Level Anion Gap 6 Blood Urea 48 #H Nitrogen Creatinine 1.37 H Est Glomerular Filtrat Rate mL/min Glucose Level 213 Calcium Level 8.9 Phosphorus Level 2.0 L Magnesium Level 1.9 Test 05/19/19 10:45 05/19/19 12:31 Blood Gas Blood arterial Blood arterial Specimen Source Arterial Blood 05/19/2019 10:31 05/19/2019 12:20 Date Drawn :39 AM :55 PM Arterial Blood 7.244 *L 7.402 pH (Temp corrected) Arterial Blood 58.2 H 37.6 pCO2 (Temp correct) Arterial Blood 91.2 H 76.2 L pO2 (Temp corrected) Arterial Blood 24.6 22.9 HCO3 Arterial Blood -3.5 L -1.6 Base Excess Arterial Blood 96.0 95.8 Oxygen Saturatio n Joe Test ACCEPTAB ACCEPTAB Arterial Blood Right Radial Right Radial Gas Puncture Site Arterial 0.3 0.3 Blood Carboxyhem oglobin Arterial Blood 0.4 0.4 Methemoglobin Blood Gas A-a O2 199.8 H 165.8 H Differential Oxyhemoglobin 95.3 95.1 Percent Blood Gas 37.0 37.0 Temperature Blood Gas MASK - VENTI VENT - AC Modality FiO2 50.0 40.0 Blood Gas LBRAZZLE RN Critical Value Read Back Blood Gas TM TM Notified Whom Blood Gas 05/19/2019 10:42 05/19/2019 12:39 Notified Time :10 AM :28 PM Blood Gas 24.0 Respiration Rate Blood Gas Actual 24 Respiration Rate Blood Gas Tidal 500.0 Volume Blood Gas Low 5.0 PEEP Setting Imaging Imaging ECG sinus rhythm at 71 bpm, QRS 118 ms, incomplete left bundle branch block, nonspecific ST abnormalities Medications Medications Current Medications IV Flush (NS 3 ml) 3 ml PER PROTOCOL IV ; Start 05/18/19 at 02:00 Ondansetron HCl (Zofran Inj) 4 mg Q6H PRN IV NAUSEA/VOMITING; Start 05/18/19 at 02:00 Acetaminophen (Tylenol Tab) 650 mg Q6H PRN PO .PAIN 1-3 OR TEMP; Start 05/18/19 at 02:00 Amlodipine Besylate (Norvasc) 5 mg BID PO ; Start 05/18/19 at 09:00 Atorvastatin Calcium (Lipitor) 20 mg HS PO Last administered on 05/18/19at 23:47; Admin Dose 20 MG; Start 05/18/19 at 21:00 Hydrochlorothiazide (Hydrochlorothiazide) 12.5 mg DAILY PO ; Start 05/18/19 at 09:00 Losartan Potassium (Cozaar) 25 mg BID PO ; Start 05/18/19 at 09:00 Metoprolol Tartrate (Lopressor) 25 mg BID PO ; Start 05/18/19 at 09:00 Albuterol/ Ipratropium (Duoneb) 3 ml Q2H RESP THERAPY PRN HHN wheezing; Start 05/18/19 at 09:30 Budesonide (Pulmicort (Neb)) 0.5 mg BID RESP THERAPY HHN Last administered on 05/18/19at 19:53; Admin Dose 0.5 MG; Start 05/18/19 at 20:00 Methylprednisolone Sodium Succinate (Solu-Medrol) 40 mg Q8 IV Last administered on 05/19/19at 05:40; Admin Dose 40 MG; Start 05/18/19 at 14:00 Fentanyl 100 ml @ 2.5 mls/hr PER PROTOCOL IV Last administered on 05/19/19 06:37; Admin Dose 5 MLS/HR; Start 05/18/19 at 11:00 Hydralazine HCl (Apresoline) 10 mg Q4H PRN IV sbp >160 Last administered on 05/18/19 13:10; Admin Dose 10 MG; Start 05/18/19 at 11:00 Clopidogrel Bisulfate (plaVIX) 75 mg DAILY GTB ; Start 05/18/19 at 11:00 Albuterol (Ventolin Hfa) 4 puff Q4H RESP THERAPY INH Last administered on 05/19/19 04:44; Admin Dose 4 PUFF; Start 05/18/19 at 17:00 Ipratropium [place] (Atrovent Hfa) 4 puff Q4H RESP THERAPY INH Last administered on 05/19/19 04:44; Admin Dose 4 PUFF; Start 05/18/19 at 17:00 Sodium Chloride 1,000 ml @ 100 mls/hr Q10H IV Last administered on 05/19/19 03:27; Admin Dose 100 MLS/HR; Start 05/18/19 at 16:00 Norepinephrine 250 ml @ 1.875 mls/ hr TITRATE IV Last administered on 05/01 12:25; Admin Dose 3.75 MLS/HR; Start 05/18/19 at 16:00 IV Flush (NS 10 ml) 10 ml PRN PRN IV FLUSH LINE; Start 05/18/19 at 17:30 Propofol 100 ml @ 2.055 mls/ hr Q12H IV Last administered on 05/19/19 12:42; Admin Dose 20.55 MLS/HR; Start 05/19/19 at 11:30 Sodium Chloride 500 ml @ 500 mls/hr Q1H ONCE IV Last administered on 05/19/19 13:00; Admin Dose 500 MLS/HR; Start 05/19/19 at 13:00; Stop 05/19/19 at 13:59 Levofloxacin/ Dextrose 100 ml @ 100 mls/hr Q24H IVPB ; Start 05/19/19 at 13:00; Status UNV Cefepime HCl 50 ml @ 100 mls/hr Q12 IVPB ; Start 05/19/19 at 13:00 Bao Garza DO May 19, 2019 13:30
[2019-05-19] MEDS: BUDESONIDE (NEB) 0.5MG/2ML AMP HHN SCH ×2 (13:38→19:33)
--- NOTE | 2019-05-19 14:23 | PN ---
DATE: 05/19/2019 SUBJECTIVE: Patient self-extubated this morning. Currently on face mask, tachypneic, tachycardic, i n mild distress. WBC today 13.7, platelets 257, neutrophils 70, bands 26, BUN 48, creatinine 1.37. Lactic acid on adm ission was 8.5, today went down to 1.8. MICROBIOLOGY: Blood cultures remain negative. Urinalysis on admission was negative. DIAGNOSTICS: Chest x-ray this morning revealed patchy bilateral opacities representing edema versus pneumonia. INDWELLINGS: The patient has a PICC line, right upper extremity, Hernández catheter. ANTIMICROBIALS: He is on IV vancomycin and Zosyn. He is also on Solu-Medrol. PHYSICAL EXAMINATION: GENERAL: This is a chronically ill-appearing, elderly man who is lethargic, arousable, in no distres s. HEENT: Head atraumatic, normocephalic. NECK: Supple. CHEST: Rise symmetrical. Breath sounds with bilateral rales. HEART: S1, S2, tachycardic. ABDOMEN: Soft, bowel tones hypoactive. EXTREMITIES: Without cyanosis. ASSESSMENT: 1. Severe sepsis. 2. Acute hypoxemic respiratory failure. 3. Pneumonia, possibly aspiration. 4. Chronic obstructive pulmonary disease. 5. Acute possibly on chronic kidney disease. 6. Acute encephalopathy, CT of the head negative. PLAN: We are going to change antibiotics to cefepime, levofloxacin, try to obtain sputum cultures if possible. Swab nares for MRSA. Send urine for culture. Plan to start patient on BiPAP. We will f zoraidalow pulmonary recommendations. Dictated By: KURT SO BOARD TURNER for FROY HURT MD NI/NTS Conf#: [id number] DID#: [id number] CC: KRISTIN BASS MD;*EndCC*
[2019-05-19] MEDS: CLOPIDOGREL 75 MG TAB GTB SCH (15:02)
[2019-05-19] MEDS: CEFEPIME 1GM/50 ML (PMX) 50 ML IVPB SCH ×2 (15:03→21:54)
[2019-05-19] MEDS: LEVOFLOXACIN 500MG/D5W (PMX) 100 ML IVPB SCH (15:03)
[2019-05-19] MEDS: ATORVASTATIN 20 MG TAB PO SCH (21:00)
[2019-05-20] VITALS (61 sets, daily range): BP systolic 104–166; BP diastolic 47–93; PULSE 45–63; RESP 16–24
[2019-05-20] MEDS: PROPOFOL 100 ML IV SCH ×5 (00:04→23:17)
[2019-05-20] MEDS: IPRATROPIUM (HFA) 12.9 GM INHALER INH SCH ×6 (01:16→20:19)
[2019-05-20] MEDS: ALBUTEROL HFA 8 GM INHALER INH SCH ×6 (01:16→20:19)
[2019-05-20] MEDS: METHYLPREDNISOLONE 40 MG INJ IV SCH ×3 (05:30→21:26)
--- NOTE | 2019-05-20 08:28 | CONS ---
Assessment/Plan Assessment/Plan Assessment/Plan (Daily) 1. acute hyperrkalemia 2. Acute kidney injury due to ATN from septic shock + prerenal azotemia 3. acute hypercapnic respiratory failure 2/2 Septic shock and PNA,, intubated on ventilator 4. H/o HTN 5. h/o HL 6. Septic shock due to bilateral PNA 7. Hypotension Plan: BUN/Cr 48/1.12, other electrolytes stable IV abx Cefepime and Levaquin , Renally dose all abx and monitor electorlytes, ID following Levophed for BP support IV solu-medrol 40mg Q 8 hr Stopped HCTZ, amlodpine, Losartan and Metoprolol - monitor BP and wll resume one medication at a time- meanwhile use IV hydralazine prn will follow up Consultation Date/Type/Reason Admit Date/Time May 18, 2019 at 00:50 Initial Consult Date 05/18/19 Type of Consult NEPHROLOGY Requesting Provider: VIRGEN MCQUEEN Date/Time of Note DATE: 05/20/19 TIME: 08:28 Exam/Review of Systems Exam Vitals Vital Signs Date Temp Pulse Resp B/P (MAP) Pulse Ox O2 O2 Flow FiO2 Time Delivery Rate 05/20/19 57 24 100 40 05:06 05/20/19 150/65 04:15 (93) 05/20/19 99.2 04:00 05/19/19 Mechanical 20:00 Ventilator 05/19/19 15.0 11:00 Intake and Output 05/19/19 05/19/19 05/20/19 1515:00 23:00 07:00 IntakeIntake Total 1198.225 ml 980.085 ml 601.178 ml OutputOutput Total 275 ml 155 ml 325 ml BalanceBalance 923.225 ml 825.085 ml 276.178 ml Results Result Diagram: 05/20/19 0430 05/20/19 0430 Results 24hrs Laboratory Tests Test 05/19/19 10:45 05/19/19 12:31 05/20/19 04:30 05/20/19 07:00 Blood Gas Blood arterial Blood arterial Blood Specimen arterial Source Arterial Blood 05/19/2019 10:31 05/19/2019 12:20 05/20/2019 8:15 Date Drawn :39 AM :55 PM :21 AM Arterial Blood 7.244 *L 7.402 7.407 pH (Temp corrected ) Arterial Blood 58.2 H 37.6 32.9 L pCO2 (Temp correct) Arterial Blood 91.2 H 76.2 L 116.3 H pO2 (Temp corrected ) Arterial Blood 24.6 22.9 20.2 L HCO3 Arterial Blood -3.5 L -1.6 -3.7 L Base Excess Arterial Blood 96.0 95.8 97.9 Oxygen Saturati on Joe Test ACCEPTAB ACCEPTAB ACCEPTAB Arterial Blood Right Radial Right Radial Right Radial Gas Puncture Site Arterial 0.3 0.3 0.3 Blood Carboxyhe moglobin Arterial Blood 0.4 0.4 0.2 Methemoglobin Blood Gas A-a 199.8 H 165.8 H 131.1 H O2 Differential Oxyhemoglobin 95.3 95.1 97.4 Percent Blood Gas 37.0 37.0 37.0 Temperature Blood Gas MASK - VENTI VENT - AC VENT - AC Modality FiO2 50.0 40.0 40.0 Blood Gas LBRAZZLE RN Critical Value Read Back Blood Gas FRANKIE REDD Notified Whom Blood Gas 05/19/2019 10:42 05/19/2019 12:39 05/20/2019 8:26 Notified Time :10 AM :28 PM :58 AM Blood Gas 24.0 24.0 Respiration Rate Blood Gas 24 24 Actual Respiration Rat e Blood Gas Tidal 500.0 500.0 Volume Blood Gas Low 5.0 5.0 PEEP Setting White Blood 9.9 # Count Red Blood Count 3.45 L Hemoglobin 10.6 L Hematocrit 32.9 L Mean 95.4 Corpuscular Volume Mean 30.7 Corpuscular Hemoglobin Mean 32.2 Corpuscular Hemoglobin Conc ent Red Cell 14.8 H Distribution Width Platelet Count 219 Mean Platelet 10.7 H Volume Immature 0.900 H Granulocytes % Neutrophils % 91.5 H Lymphocytes % 2.0 L Monocytes % 5.6 Eosinophils % 0.0 Basophils % 0.0 Nucleated Red 0.0 Blood Cells % Immature 0.090 H Granulocytes # Neutrophils # 9.1 H Lymphocytes # 0.2 L Monocytes # 0.6 Eosinophils # 0.0 Basophils # 0.0 Nucleated Red 0.0 Blood Cells # Sodium Level 141 Potassium Level 4.0 Chloride Level 111 H Carbon Dioxide 21 Level Anion Gap 9 Blood Urea 48 H Nitrogen Creatinine 1.12 Est Glomerular Filtrat Rate mL/min Glucose Level 188 Calcium Level 9.0 Magnesium Level 2.2 Total Bilirubin 0.3 Direct 0.00 Bilirubin Indirect 0.3 Bilirubin Aspartate Amino 32 Transf (AST/SGO T) Alanine 48 Aminotransferas e (ALT/SGPT) Alkaline 45 Phosphatase Total Protein 5.4 #L Albumin 2.7 #L Globulin 2.70 Albumin/Globuli 1.00 n Ratio Medications Medication Current Medications IV Flush (NS 3 ml) 3 ml PER PROTOCOL IV ; Start 05/18/19 at 02:00 Ondansetron HCl (Zofran Inj) 4 mg Q6H PRN IV NAUSEA/VOMITING; Start 05/18/19 at 02:00 Acetaminophen (Tylenol Tab) 650 mg Q6H PRN PO .PAIN 1-3 OR TEMP; Start 05/18/19 at 02:00 Atorvastatin Calcium (Lipitor) 20 mg HS PO Last administered on 05/18/19at 23:47; Admin Dose 20 MG; Start 05/18/19 at 21:00 Albuterol/ Ipratropium (Duoneb) 3 ml Q2H RESP THERAPY PRN HHN wheezing; Start 05/18/19 at 09:30 Budesonide (Pulmicort (Neb)) 0.5 mg BID RESP THERAPY HHN Last administered on 05/19/19 19:33; Admin Dose 0.5 MG; Start 05/18/19 at 20:00 Methylprednisolone Sodium Succinate (Solu-Medrol) 40 mg Q8 IV Last administered on 05/20/19 05:30; Admin Dose 40 MG; Start 05/18/19 at 14:00 Fentanyl 100 ml @ 2.5 mls/hr PER PROTOCOL IV Last administered on 05/19/19 06:37; Admin Dose 5 MLS/HR; Start 05/18/19 at 11:00 Hydralazine HCl (Apresoline) 10 mg Q4H PRN IV sbp >160 Last administered on 05/18/19 13:10; Admin Dose 10 MG; Start 05/18/19 at 11:00 Clopidogrel Bisulfate (plaVIX) 75 mg DAILY GTB ; Start 05/18/19 at 11:00 Albuterol (Ventolin Hfa) 4 puff Q4H RESP THERAPY INH Last administered on 05/20/19 05:13; Admin Dose 4 PUFF; Start 05/18/19 at 17:00 Ipratropium [place] (Atrovent Hfa) 4 puff Q4H RESP THERAPY INH Last administered on 05/20/19at 05:13; Admin Dose 4 PUFF; Start 05/18/19 at 17:00 Sodium Chloride 1,000 ml @ 70 mls/hr [id number] IV Last administered on 05/19/19at 15:03; Admin Dose 100 MLS/HR; Start 05/18/19 at 16:00 Norepinephrine 250 ml @ 1.875 mls/ hr TITRATE IV Last administered on 05/19/19 at 12:25; Admin Dose 3.75 MLS/HR; Start 05/18/19 at 16:00 IV Flush (NS 10 ml) 10 ml PRN PRN IV FLUSH LINE; Start 05/18/19 at 17:30 Propofol 100 ml @ 2.055 mls/ hr Q12H IV Last administered on 05/20/19 05:31; Admin Dose 12.33 MLS/HR; Start 05/19/19 at 11:30 Levofloxacin/ Dextrose 100 ml @ 100 mls/hr Q24H IVPB Last administered on 05/19/19 15:03; Admin Dose 100 MLS/HR; Start 05/19/19 at 13:00 Cefepime HCl 50 ml @ 100 mls/hr Q12 IVPB Last administered on 05/19/19at 21:54; Admin Dose 100 MLS/HR; Start 05/19/19 at 13:00 EDGARD CLARKE MD May 20, 2019 08:28
[2019-05-20] MEDS: BUDESONIDE (NEB) 0.5MG/2ML AMP HHN SCH ×3 (08:51→20:18)
--- NOTE | 2019-05-20 09:08 | PN ---
Date/Time of Note Date/Time of Note DATE: 05/20/19 TIME: 09:07 Objective Vitals Vital Signs Date Temp Pulse Resp B/P (MAP) Pulse Ox O2 O2 Flow FiO2 Time Delivery Rate 05/20/19 57 24 100 40 05:06 05/20/19 150/65 04:15 (93) 05/20/19 99.2 04:00 05/19/19 Mechanical 20:00 Ventilator 05/19/19 15.0 11:00 Intake and Output 05/19/19 05/19/19 05/20/19 1515:00 23:00 07:00 IntakeIntake Total 1198.225 ml 980.085 ml 601.178 ml OutputOutput Total 275 ml 155 ml 325 ml BalanceBalance 923.225 ml 825.085 ml 276.178 ml Results Result Diagram: 05/20/19 0430 05/20/19 0430 Medications Medications Current Medications IV Flush (NS 3 ml) 3 ml PER PROTOCOL IV ; Start 05/18/19 at 02:00 Ondansetron HCl (Zofran Inj) 4 mg Q6H PRN IV NAUSEA/VOMITING; Start 05/18/19 at 02:00 Acetaminophen (Tylenol Tab) 650 mg Q6H PRN PO .PAIN 1-3 OR TEMP; Start 05/18/19 at 02:00 Atorvastatin Calcium (Lipitor) 20 mg HS PO Last administered on 05/18/19at 23:47; Admin Dose 20 MG; Start 05/18/19 at 21:00 Albuterol/ Ipratropium (Duoneb) 3 ml Q2H RESP THERAPY PRN HHN wheezing; Start 05/18/19 at 09:30 Budesonide (Pulmicort (Neb)) 0.5 mg BID RESP THERAPY HHN Last administered on 05/20/19at 08:51; Admin Dose 0.5 MG; Start 05/18/19 at 20:00 Methylprednisolone Sodium Succinate (Solu-Medrol) 40 mg Q8 IV Last administered on 05/20/19at 05:30; Admin Dose 40 MG; Start 05/18/19 at 14:00 Fentanyl 100 ml @ 2.5 mls/hr PER PROTOCOL IV Last administered on 05/19/19at 06:37; Admin Dose 5 MLS/HR; Start 05/18/19 at 11:00 Hydralazine HCl (Apresoline) 10 mg Q4H PRN IV sbp >160 Last administered on 05/18/19 13:10; Admin Dose 10 MG; Start 05/18/19 at 11:00 Clopidogrel Bisulfate (plaVIX) 75 mg DAILY GTB ; Start 05/18/19 at 11:00 Albuterol (Ventolin Hfa) 4 puff Q4H RESP THERAPY INH Last administered on 05/20/19 08:54; Admin Dose 4 PUFF; Start 05/18/19 at 17:00 Ipratropium [place] (Atrovent Hfa) 4 puff Q4H RESP THERAPY INH Last administered on 05/20/19 08:54; Admin Dose 4 PUFF; Start 05/18/19 at 17:00 Sodium Chloride 1,000 ml @ 100 mls/hr Q10H IV Last administered on 05/19/19 15:03; Admin Dose 100 MLS/HR; Start 05/18/19 at 16:00 Norepinephrine 250 ml @ 1.875 mls/ hr TITRATE IV Last administered on 12:25; Admin Dose 3.75 MLS/HR; Start 05/18/19 at 16:00 IV Flush (NS 10 ml) 10 ml PRN PRN IV FLUSH LINE; Start 05/18/19 at 17:30 Propofol 100 ml @ 2.055 mls/ hr Q12H IV Last administered on 05/20/19 05:31; Admin Dose 12.33 MLS/HR; Start 05/19/19 at 11:30 Levofloxacin/ Dextrose 100 ml @ 100 mls/hr Q24H IVPB Last administered on 05/19/19 15:03; Admin Dose 100 MLS/HR; Start 05/19/19 at 13:00 Cefepime HCl 50 ml @ 100 mls/hr Q12 IVPB Last administered on 05/19/19 21:54; Admin Dose 100 MLS/HR; Start 05/19/19 at 13:00 VTE Prophylaxis Risk score (from Nsg)>0 risk: 12 SCD applied (from Ns): Yes Lines/Catheters IV Catheter Type: Hernández in Place: No Assessment/Plan Hospital Course Subjective Patient intubated and sedated, had episode of self extubation yesterday however did not tolerate and had to be reintubated Objective Physical exam General: Patient is laying in bed intubated mentation: Patient is sedated Head: Normocephalic atraumatic Eyes: EOMI, pupils reactive to light Neck: Supple, nontender, midline Respiratory: Coarse to auscultation bilaterally Cardiovascular: regular rate, no obvious murmurs Gastrointestinal: non-tender to palpation, bowel sounds heard. Neurological: Unable to fully assess Skin: No new skin lesions Assessment and plan Acute hypoxic respiratory distress -Now intubated again after self extubation on May 19, 2019 -Pulmonology on board -Possibly secondary to COPD exacerbation versus aspiration pneumonia -CT chest ordered to give some more information as patient does have COPD however had no respiratory issues during previous admission which was only 2 days before readmission. COPD exacerbation -Patient does have a history of lung disease however unknown if he was having severe respiratory distress before altered mentation -Nebulizers, IV steroids -Pulmonology involved Possible aspiration pneumonia -Patient was altered, at risk of developing aspiration pneumonia -Broad-spectrum antibiotic -infectious disease consulted Acute encephalopathy, resolving -Patient baseline is alert and oriented x3 with some mild memory loss -CT head noted, no acute issues -Neurology consulted -Likely secondary to hypercapnia and respiratory depression however Acute kidney injury -Nephrology on board -Continue fluids Hypertension -Continue home meds when able Mild cognitive impairment -Neurology on board -Baseline is alert and oriented x3, with some memory loss Mild carotid stenosis, right ICA -Continue on Plavix and statin Disposition -Extubate when able More than 40 minutes of critical care time was spent on this evaluation VIRGEN MCQUEEN May 20, 2019 09:08
--- NOTE | 2019-05-20 09:56 | CONS ---
Consult Date/Type/Reason Admit Date/Time May 18, 2019 at 00:50 Initial Consult Date 05/18/19 Type of Consult Pulmonary Requesting Provider: VRIGEN MCQUEEN Date/Time of Note DATE: 05/20/19 TIME: 09:55 Subjective Patient off vasopressors this morning continues to have moderate secretions continues mechanical ventilation. Objective Vital Signs Date Temp Pulse Resp B/P (MAP) Pulse Ox O2 O2 Flow FiO2 Time Delivery Rate 05/20/19 47 24 100 40 09:00 05/20/19 150/65 04:15 (93) 05/20/19 99.2 04:00 05/19/19 Mechanical 20:00 Ventilator 05/19/19 15.0 11:00 Intake and Output 05/19/19 05/19/19 05/20/19 1515:00 23:00 07:00 IntakeIntake Total 1198.225 ml 980.085 ml 601.178 ml OutputOutput Total 275 ml 155 ml 325 ml BalanceBalance 923.225 ml 825.085 ml 276.178 ml Exam GENERAL: Elderly appearing gentleman orally intubated on mechanical ventilation. VITAL SIGNS: per chart NECK: Supple. No JVD or lymphadenopathy. CARDIAC EXAM: S1, S2. No added sounds or murmurs. CHEST: Diminished air entry bilaterally ABDOMEN: Soft, nontender. No guarding or rebound. EXTREMITIES: No cyanosis, clubbing or edema. NEUROLOGIC: Generalized weakness. No focal deficits. Vent Setting Ventilator Support Mode: AC Fraction of Inspired Oxygen pe: 40 Positive End Expiratory Pressu: 5.0 Results/Medications Result Diagram: 05/20/19 0430 05/20/19 0430 Results 24 hrs Laboratory Tests Test 05/19/19 10:45 05/19/19 12:31 05/20/19 04:30 05/20/19 07:00 Blood Gas Blood arterial Blood arterial Blood Specimen arterial Source Arterial Blood 05/19/2019 10:31 05/19/2019 12:20 05/20/2019 8:15 Date Drawn :39 AM :55 PM :21 AM Arterial Blood 7.244 *L 7.402 7.407 pH (Temp corrected ) Arterial Blood 58.2 H 37.6 32.9 L pCO2 (Temp correct) Arterial Blood 91.2 H 76.2 L 116.3 H pO2 (Temp corrected ) Arterial Blood 24.6 22.9 20.2 L HCO3 Arterial Blood -3.5 L -1.6 -3.7 L Base Excess Arterial Blood 96.0 95.8 97.9 Oxygen Saturati on Joe Test ACCEPTAB ACCEPTAB ACCEPTAB Arterial Blood Right Radial Right Radial Right Radial Gas Puncture Site Arterial 0.3 0.3 0.3 Blood Carboxyhe moglobin Arterial Blood 0.4 0.4 0.2 Methemoglobin Blood Gas A-a 199.8 H 165.8 H 131.1 H O2 Differential Oxyhemoglobin 95.3 95.1 97.4 Percent Blood Gas 37.0 37.0 37.0 Temperature Blood Gas MASK - VENTI VENT - AC VENT - AC Modality FiO2 50.0 40.0 40.0 Blood Gas LBRAZZLE RN Critical Value Read Back Blood Gas TM TM Ervin REDD Notified Whom Blood Gas 05/19/2019 10:42 05/19/2019 12:39 05/20/2019 8:26 Notified Time :10 AM :28 PM :58 AM Blood Gas 24.0 24.0 Respiration Rate Blood Gas 24 24 Actual Respiration Rat e Blood Gas Tidal 500.0 500.0 Volume Blood Gas Low 5.0 5.0 PEEP Setting White Blood 9.9 # Count Red Blood Count 3.45 L Hemoglobin 10.6 L Hematocrit 32.9 L Mean 95.4 Corpuscular Volume Mean 30.7 Corpuscular Hemoglobin Mean 32.2 Corpuscular Hemoglobin Conc ent Red Cell 14.8 H Distribution Width Platelet Count 219 Mean Platelet 10.7 H Volume Immature 0.900 H Granulocytes % Neutrophils % 91.5 H Lymphocytes % 2.0 L Monocytes % 5.6 Eosinophils % 0.0 Basophils % 0.0 Nucleated Red 0.0 Blood Cells % Immature 0.090 H Granulocytes # Neutrophils # 9.1 H Lymphocytes # 0.2 L Monocytes # 0.6 Eosinophils # 0.0 Basophils # 0.0 Nucleated Red 0.0 Blood Cells # Sodium Level 141 Potassium Level 4.0 Chloride Level 111 H Carbon Dioxide 21 Level Anion Gap 9 Blood Urea 48 H Nitrogen Creatinine 1.12 Est Glomerular Filtrat Rate mL/min Glucose Level 188 Calcium Level 9.0 Magnesium Level 2.2 Total Bilirubin 0.3 Direct 0.00 Bilirubin Indirect 0.3 Bilirubin Aspartate Amino 32 Transf (AST/SGO T) Alanine 48 Aminotransferas e (ALT/SGPT) Alkaline 45 Phosphatase Total Protein 5.4 #L Albumin 2.7 #L Globulin 2.70 Albumin/Globuli 1.00 n Ratio Medications Current Medications IV Flush (NS 3 ml) 3 ml PER PROTOCOL IV ; Start 05/18/19 at 02:00 Ondansetron HCl (Zofran Inj) 4 mg Q6H PRN IV NAUSEA/VOMITING; Start 05/18/19 at 02:00 Acetaminophen (Tylenol Tab) 650 mg Q6H PRN PO .PAIN 1-3 OR TEMP; Start 05/18/19 at 02:00 Atorvastatin Calcium (Lipitor) 20 mg HS PO Last administered on 05/18/19 23:47; Admin Dose 20 MG; Start 05/18/19 at 21:00 Albuterol/ Ipratropium (Duoneb) 3 ml Q2H RESP THERAPY PRN HHN wheezing; Start 05/18/19 at 09:30 Budesonide (Pulmicort (Neb)) 0.5 mg BID RESP THERAPY HHN Last administered on 05/20/19 08:51; Admin Dose 0.5 MG; Start 05/18/19 at 20:00 Methylprednisolone Sodium Succinate (Solu-Medrol) 40 mg Q8 IV Last administered on 05/20/19 05:30; Admin Dose 40 MG; Start 05/18/19 at 14:00 Fentanyl 100 ml @ 2.5 mls/hr PER PROTOCOL IV Last administered on 05/19/19 06:37; Admin Dose 5 MLS/HR; Start 05/18/19 at 11:00 Hydralazine HCl (Apresoline) 10 mg Q4H PRN IV sbp >160 Last administered on 05/18/19at 13:10; Admin Dose 10 MG; Start 05/18/19 at 11:00 Clopidogrel Bisulfate (plaVIX) 75 mg DAILY GTB ; Start 05/18/19 at 11:00 Albuterol (Ventolin Hfa) 4 puff Q4H RESP THERAPY INH Last administered on 05/20/19 08:54; Admin Dose 4 PUFF; Start 05/18/19 at 17:00 Ipratropium [place] (Atrovent Hfa) 4 puff Q4H RESP THERAPY INH Last administered on 05/20/19 08:54; Admin Dose 4 PUFF; Start 05/18/19 at 17:00 Sodium Chloride 1,000 ml @ 100 mls/hr Q10H IV Last administered on 05/19/19 15:03; Admin Dose 100 MLS/HR; Start 05/18/19 at 16:00 Norepinephrine 250 ml @ 1.875 mls/ hr TITRATE IV Last administered on 05/19/19 12:25; Admin Dose 3.75 MLS/HR; Start 05/18/19 at 16:00 IV Flush (NS 10 ml) 10 ml PRN PRN IV FLUSH LINE; Start 05/18/19 at 17:30 Propofol 100 ml @ 2.055 mls/ hr Q12H IV Last administered on 05/20/19 05:31; Admin Dose 12.33 MLS/HR; Start 05/19/19 at 11:30 Levofloxacin/ Dextrose 100 ml @ 100 mls/hr Q24H IVPB Last administered on 05/19/19 15:03; Admin Dose 100 MLS/HR; Start 05/19/19 at 13:00 Cefepime HCl 50 ml @ 100 mls/hr Q12 IVPB Last administered on 05/19/19 21:54; Admin Dose 100 MLS/HR; Start 05/19/19 at 13:00 Budesonide (Pulmicort (Neb)) 0.5 mg BID RESP THERAPY HHN ; Start 05/20/19 at 20:00 Assessment/Plan Hospital Course (Demo Recall) Assessment 1. Acute hypoxemic and hypercapnic respiratory failure 2. Encephalopathy toxic metabolic 3. Aspiration versus community acquired pneumonia 4. Renal insufficiency Plan 1. Continue mechanical ventilation post reintubation hold off on extubation trials given persistent productive sputum. 2. Tube feeding with water flush. 3. Vasopressors as needed 4. DVT GI prophylaxis Critical care time 45 minutes. ABDIRIZAK BLAIR MD, [facility] May 20, 2019 09:56
--- NOTE | 2019-05-20 10:06 | CONS ---
Assessment/Plan Assessment/Plan Hospital Course (Demo Recall) ID PROGRESS NOTE CURRENT ABX: DAY # 2 => Cefepime + Levaquin s/p Vanco IV + Zosyn 05/20/19 0430 05/20/19 0430 24H INTERVAL SUMMARY * Elderly M orally intubated, vented, non-communicative, chart reviewed DIAGNOSTIC IMAGING * 05/20/19 CXR: Left greater right basilar atelectasis or infiltrates with probable small effusions. MICRO * (-)MRSA Nares * 05/18/19 Urine Cx (-) * 05/18/19 BCx (-) PHYSICAL EXAMINATION: GENERAL: VSS, NAD HEENT: AT, NC, NECK: Supple, CHEST: Rise symmetrical HEART: Pulse RRR ABDOMEN: Benign EXTREMITIES: Warm, dry -- 1+ edema pedal, hand, hyperkeratotic long toenails SKIN: No rash, no diaphoresis ID ASSESSMENT 84 yo M admit with: 1. Severe sepsis. 2. Acute hypoxemic respiratory failure. 3. Pneumonia, possibly aspiration. 4. Chronic obstructive pulmonary disease. 5. Acute possibly on chronic kidney disease. 6. Acute encephalopathy, CT of the head negative. (-)MRSA Nares ABX ALLERGIES: KNDA INVASIVES: PICC, FC CURRENT ABX: DAY # 2 => Cefepime + Levaquin s/p Vanco IV + Zosyn ID RECOMMENDATIONS/PLAN: 1. Continue current ABX and supportive care . . Consultation Date/Type/Reason Admit Date/Time May 18, 2019 at 00:50 Initial Consult Date 05/18/19 Requesting Provider: VIRGEN MCQUEEN Date/Time of Note DATE: 05/20/19 TIME: 10:06 Exam/Review of Systems Exam Vitals Vital Signs Date Temp Pulse Resp B/P (MAP) Pulse Ox O2 O2 Flow FiO2 Time Delivery Rate 05/20/19 47 24 100 40 09:00 05/20/19 150/65 04:15 (93) 05/20/19 99.2 04:00 05/19/19 Mechanical 20:00 Ventilator 05/19/19 15.0 11:00 Intake and Output 05/19/19 05/19/19 05/20/19 1515:00 23:00 07:00 IntakeIntake Total 1198.225 ml 980.085 ml 601.178 ml OutputOutput Total 275 ml 155 ml 325 ml BalanceBalance 923.225 ml 825.085 ml 276.178 ml Results Result Diagram: 05/20/19 0430 05/20/19 0430 Results 24hrs Laboratory Tests Test 05/19/19 10:45 05/19/19 12:31 05/20/19 04:30 05/20/19 07:00 Blood Gas Blood arterial Blood arterial Blood Specimen arterial Source Arterial Blood 05/19/2019 10:31 05/19/2019 12:20 05/20/2019 8:15 Date Drawn :39 AM :55 PM :21 AM Arterial Blood 7.244 *L 7.402 7.407 pH (Temp corrected ) Arterial Blood 58.2 H 37.6 32.9 L pCO2 (Temp correct) Arterial Blood 91.2 H 76.2 L 116.3 H pO2 (Temp corrected ) Arterial Blood 24.6 22.9 20.2 L HCO3 Arterial Blood -3.5 L -1.6 -3.7 L Base Excess Arterial Blood 96.0 95.8 97.9 Oxygen Saturati on Joe Test ACCEPTAB ACCEPTAB ACCEPTAB Arterial Blood Right Radial Right Radial Right Radial Gas Puncture Site Arterial 0.3 0.3 0.3 Blood Carboxyhe moglobin Arterial Blood 0.4 0.4 0.2 Methemoglobin Blood Gas A-a 199.8 H 165.8 H 131.1 H O2 Differential Oxyhemoglobin 95.3 95.1 97.4 Percent Blood Gas 37.0 37.0 37.0 Temperature Blood Gas MASK - VENTI VENT - AC VENT - AC Modality FiO2 50.0 40.0 40.0 Blood Gas LBRAZZLE RN Critical Value Read Back Blood Gas FRANKIE REDD Notified Whom Blood Gas 05/19/2019 10:42 05/19/2019 12:39 05/20/2019 8:26 Notified Time :10 AM :28 PM :58 AM Blood Gas 24.0 24.0 Respiration Rate Blood Gas 24 24 Actual Respiration Rat e Blood Gas Tidal 500.0 500.0 Volume Blood Gas Low 5.0 5.0 PEEP Setting White Blood 9.9 # Count Red Blood Count 3.45 L Hemoglobin 10.6 L Hematocrit 32.9 L Mean 95.4 Corpuscular Volume Mean 30.7 Corpuscular Hemoglobin Mean 32.2 Corpuscular Hemoglobin Conc ent Red Cell 14.8 H Distribution Width Platelet Count 219 Mean Platelet 10.7 H Volume Immature 0.900 H Granulocytes % Neutrophils % 91.5 H Lymphocytes % 2.0 L Monocytes % 5.6 Eosinophils % 0.0 Basophils % 0.0 Nucleated Red 0.0 Blood Cells % Immature 0.090 H Granulocytes # Neutrophils # 9.1 H Lymphocytes # 0.2 L Monocytes # 0.6 Eosinophils # 0.0 Basophils # 0.0 Nucleated Red 0.0 Blood Cells # Sodium Level 141 Potassium Level 4.0 Chloride Level 111 H Carbon Dioxide 21 Level Anion Gap 9 Blood Urea 48 H Nitrogen Creatinine 1.12 Est Glomerular Filtrat Rate mL/min Glucose Level 188 Calcium Level 9.0 Magnesium Level 2.2 Total Bilirubin 0.3 Direct 0.00 Bilirubin Indirect 0.3 Bilirubin Aspartate Amino 32 Transf (AST/SGO T) Alanine 48 Aminotransferas e (ALT/SGPT) Alkaline 45 Phosphatase Total Protein 5.4 #L Albumin 2.7 #L Globulin 2.70 Albumin/Globuli 1.00 n Ratio Medications Medication Current Medications IV Flush (NS 3 ml) 3 ml PER PROTOCOL IV ; Start 05/18/19 at 02:00 Ondansetron HCl (Zofran Inj) 4 mg Q6H PRN IV NAUSEA/VOMITING; Start 05/18/19 at 02:00 Acetaminophen (Tylenol Tab) 650 mg Q6H PRN PO .PAIN 1-3 OR TEMP; Start 05/18/19 at 02:00 Atorvastatin Calcium (Lipitor) 20 mg HS PO Last administered on 05/18/19at 23:47; Admin Dose 20 MG; Start 05/18/19 at 21:00 Albuterol/ Ipratropium (Duoneb) 3 ml Q2H RESP THERAPY PRN HHN wheezing; Start 05/18/19 at 09:30 Budesonide (Pulmicort (Neb)) 0.5 mg BID RESP THERAPY HHN Last administered on 05/20/19at 08:51; Admin Dose 0.5 MG; Start 05/18/19 at 20:00 Methylprednisolone Sodium Succinate (Solu-Medrol) 40 mg Q8 IV Last administered on 05/20/19at 05:30; Admin Dose 40 MG; Start 05/18/19 at 14:00 Fentanyl 100 ml @ 2.5 mls/hr PER PROTOCOL IV Last administered on 05/19/19 06:37; Admin Dose 5 MLS/HR; Start 05/18/19 at 11:00 Hydralazine HCl (Apresoline) 10 mg Q4H PRN IV sbp >160 Last administered on 05/18/19 13:10; Admin Dose 10 MG; Start 05/18/19 at 11:00 Clopidogrel Bisulfate (plaVIX) 75 mg DAILY GTB ; Start 05/18/19 at 11:00 Albuterol (Ventolin Hfa) 4 puff Q4H RESP THERAPY INH Last administered on 05/20/19 08:54; Admin Dose 4 PUFF; Start 05/18/19 at 17:00 Ipratropium [place] (Atrovent Hfa) 4 puff Q4H RESP THERAPY INH Last administered on 05/20/19 08:54; Admin Dose 4 PUFF; Start 05/18/19 at 17:00 Sodium Chloride 1,000 ml @ 100 mls/hr Q10H IV Last administered on 05/19/19 15:03; Admin Dose 100 MLS/HR; Start 05/18/19 at 16:00 Norepinephrine 250 ml @ 1.875 mls/ hr TITRATE IV Last administered on 05/19/19 12:25; Admin Dose 3.75 MLS/HR; Start 05/18/19 at 16:00 IV Flush (NS 10 ml) 10 ml PRN PRN IV FLUSH LINE; Start 05/18/19 at 17:30 Propofol 100 ml @ 2.055 mls/ hr Q12H IV Last administered on 05/20/19 05:31; Admin Dose 12.33 MLS/HR; Start 05/19/19 at 11:30 Levofloxacin/ Dextrose 100 ml @ 100 mls/hr Q24H IVPB Last administered on 05/19/19 15:03; Admin Dose 100 MLS/HR; Start 05/19/19 at 13:00 Cefepime HCl 50 ml @ 100 mls/hr Q12 IVPB Last administered on 05/19/19 21:54; Admin Dose 100 MLS/HR; Start 05/19/19 at 13:00 Budesonide (Pulmicort (Neb)) 0.5 mg BID RESP THERAPY HHN ; Start 05/20/19 at 20:00 KATHI LUKE NP May 20, 2019 10:06
[2019-05-20] MEDS: CLOPIDOGREL 75 MG TAB GTB SCH (10:11)
[2019-05-20] MEDS: CEFEPIME 1GM/50 ML (PMX) 50 ML IVPB SCH ×2 (10:11→21:27)
[2019-05-20] MEDS: SOD CHLORIDE 0.9% 1,000 ML IV SCH ×2 (10:12→17:25)
[2019-05-20] MEDS: LEVOFLOXACIN 500MG/D5W (PMX) 100 ML IVPB SCH (14:54)
[2019-05-20] MEDS: ATORVASTATIN 20 MG TAB PO SCH (21:26)
[2019-05-21] VITALS (57 sets, daily range): BP systolic 103–162; BP diastolic 52–77; PULSE 49–80; RESP 19–26
[2019-05-21] MEDS: ALBUTEROL HFA 8 GM INHALER INH SCH ×5 (01:06→19:40)
[2019-05-21] MEDS: IPRATROPIUM (HFA) 12.9 GM INHALER INH SCH ×5 (01:06→19:40)
[2019-05-21] MEDS: PROPOFOL 100 ML IV SCH ×2 (03:39→10:49)
[2019-05-21] MEDS: SOD CHLORIDE 0.9% 1,000 ML IV SCH (03:39)
[2019-05-21] MEDS: LANSOPRAZOLE 30 MG CAP GTB SCH (05:29)
[2019-05-21] MEDS: METHYLPREDNISOLONE 40 MG INJ IV SCH ×3 (06:19→21:32)
[2019-05-21] MEDS: BUDESONIDE (NEB) 0.5MG/2ML AMP HHN SCH ×3 (08:03→19:40)
[2019-05-21] MEDS: CEFEPIME 1GM/50 ML (PMX) 50 ML IVPB SCH ×2 (08:12→21:33)
[2019-05-21] MEDS: CLOPIDOGREL 75 MG TAB GTB SCH (08:13)
--- NOTE | 2019-05-21 08:41 | PN ---
Date/Time of Note Date/Time of Note DATE: 05/21/19 TIME: 08:39 Objective Vitals Vital Signs Date Temp Pulse Resp B/P (MAP) Pulse Ox O2 O2 Flow FiO2 Time Delivery Rate 05/21/19 50 21 111/57 99 06:00 (75) 05/21/19 30 05:36 05/21/19 98.7 Mechanical 04:00 Ventilator 05/19/19 15.0 11:00 Intake and Output 05/20/19 05/20/19 05/21/19 1515:00 23:00 07:00 IntakeIntake Total 932.11 ml 1402.825 ml 1329.465 ml OutputOutput Total 360 ml 440 ml 410 ml BalanceBalance 572.11 ml 962.825 ml 919.465 ml Results Result Diagram: 05/21/19 0400 05/21/19 0400 Medications Medications Current Medications IV Flush (NS 3 ml) 3 ml PER PROTOCOL IV ; Start 05/18/19 at 02:00 Ondansetron HCl (Zofran Inj) 4 mg Q6H PRN IV NAUSEA/VOMITING; Start 05/18/19 at 02:00 Acetaminophen (Tylenol Tab) 650 mg Q6H PRN PO .PAIN 1-3 OR TEMP; Start 05/18/19 at 02:00 Atorvastatin Calcium (Lipitor) 20 mg HS PO Last administered on 05/20/19at 21:26; Admin Dose 20 MG; Start 05/18/19 at 21:00 Albuterol/ Ipratropium (Duoneb) 3 ml Q2H RESP THERAPY PRN HHN wheezing; Start 05/18/19 at 09:30 Methylprednisolone Sodium Succinate (Solu-Medrol) 40 mg Q8 IV Last administered on 05/21/19at 06:19; Admin Dose 40 MG; Start 05/18/19 at 14:00 Fentanyl 100 ml @ 2.5 mls/hr PER PROTOCOL IV Last administered on 05/19/19at 06:37; Admin Dose 5 MLS/HR; Start 05/18/19 at 11:00 Hydralazine HCl (Apresoline) 10 mg Q4H PRN IV sbp >160 Last administered on 05/18/19at 13:10; Admin Dose 10 MG; Start 05/18/19 at 11:00 Clopidogrel Bisulfate (plaVIX) 75 mg DAILY GTB Last administered on 05/21/19 08:13; Admin Dose 75 MG; Start 05/18/19 at 11:00 Albuterol (Ventolin Hfa) 4 puff Q4H RESP THERAPY INH Last administered on 05/21/19 08:03; Admin Dose 4 PUFF; Start 05/18/19 at 17:00 Ipratropium [place] (Atrovent Hfa) 4 puff Q4H RESP THERAPY INH Last administered on 05/21/19 08:02; Admin Dose 4 PUFF; Start 05/18/19 at 17:00 Sodium Chloride 1,000 ml @ 100 mls/hr Q10H IV Last administered on 05/21/19 03:39; Admin Dose 100 MLS/HR; Start 05/18/19 at 16:00 Norepinephrine 250 ml @ 1.875 mls/ hr TITRATE IV Last administered on 05/19/19 12:25; Admin Dose 3.75 MLS/HR; Start 05/18/19 at 16:00 IV Flush (NS 10 ml) 10 ml PRN PRN IV FLUSH LINE; Start 05/18/19 at 17:30 Propofol 100 ml @ 2.055 mls/ hr Q12H IV Last administered on 05/21/19 03:39; Admin Dose 18.495 MLS/HR; Start 05/19/19 at 11:30 Levofloxacin/ Dextrose 100 ml @ 100 mls/hr Q24H IVPB Last administered on 05/20/19 14:54; Admin Dose 100 MLS/HR; Start 05/19/19 at 13:00 Cefepime HCl 50 ml @ 100 mls/hr Q12 IVPB Last administered on 05/21/19 08:12; Admin Dose 100 MLS/HR; Start 05/19/19 at 13:00 Budesonide (Pulmicort (Neb)) 0.5 mg BID RESP THERAPY HHN ; Start 05/20/19 at 20:00 Lansoprazole (Prevacid) 30 mg DAILY@06 GTB ; Start 05/21/19 at 06:00 VTE Prophylaxis Risk score (from Ns)>0 risk: 10 SCD applied (from Ns): Yes Lines/Catheters IV Catheter Type: Cabrales in Place: Yes Cont'd cabrales catheter reason: terminal illness/intractable pain Assessment/Plan Hospital Course Subjective Patient intubated and sedated Objective Physical exam General: Patient is laying in bed intubated mentation: Patient is sedated Head: Normocephalic atraumatic Eyes: EOMI, pupils reactive to light Neck: Supple, nontender, midline Respiratory: Coarse to auscultation bilaterally Cardiovascular: bradycardic rate, no obvious murmurs Gastrointestinal: non-tender to palpation, bowel sounds heard. Neurological: Unable to fully assess Skin: No new skin lesions Assessment and plan Acute hypoxic respiratory distress -Now intubated again after self extubation on May 19, 2019 -Pulmonology on board -Possibly secondary to COPD exacerbation versus aspiration pneumonia -CT chest ordered to give some more information as patient does have COPD however had no respiratory issues during previous admission which was only 2 days before readmission. COPD exacerbation -Patient does have a history of lung disease however unknown if he was having severe respiratory distress before altered mentation -Nebulizers, IV steroids -Pulmonology involved Possible aspiration pneumonia -Patient was altered, at risk of developing aspiration pneumonia -Broad-spectrum antibiotic -infectious disease consulted Acute encephalopathy, resolving -Patient baseline is alert and oriented x3 with some mild memory loss -CT head noted, no acute issues -Neurology consulted -Likely secondary to hypercapnia and respiratory depression however Acute kidney injury -Nephrology on board -Continue fluids Hypertension -Continue home meds when able Mild cognitive impairment -Neurology on board -Baseline is alert and oriented x3, with some memory loss Mild carotid stenosis, right ICA -Continue on Plavix and statin Disposition -Extubate when able More than 40 minutes of critical care time was spent on this evaluation VIRGEN MCQUEEN May 21, 2019 08:41
--- NOTE | 2019-05-21 10:00 | CONS ---
Consult Date/Type/Reason Admit Date/Time May 18, 2019 at 00:50 Initial Consult Date 05/18/19 Type of Consult Pulmonary Requesting Provider: VIRGEN MCQUEEN Date/Time of Note DATE: 05/21/19 TIME: 09:59 Subjective Patient continues mechanical ventilation currently hemodynamically stable. Bradycardia noted. Objective Vital Signs Date Temp Pulse Resp B/P (MAP) Pulse Ox O2 O2 Flow FiO2 Time Delivery Rate 05/21/19 53 08:00 05/21/19 21 111/57 99 06:00 (75) 05/21/19 30 05:36 05/21/19 98.7 Mechanical 04:00 Ventilator 05/19/19 15.0 11:00 Intake and Output 05/20/19 05/20/19 05/21/19 1515:00 23:00 07:00 IntakeIntake Total 932.11 ml 1402.825 ml 1329.465 ml OutputOutput Total 360 ml 440 ml 410 ml BalanceBalance 572.11 ml 962.825 ml 919.465 ml Exam GENERAL: Elderly appearing gentleman orally intubated on mechanical ventilation. VITAL SIGNS: per chart NECK: Supple. No JVD or lymphadenopathy. CARDIAC EXAM: S1, S2. No added sounds or murmurs. CHEST: Diminished air entry bilaterally ABDOMEN: Soft, nontender. No guarding or rebound. EXTREMITIES: No cyanosis, clubbing or edema. NEUROLOGIC: Generalized weakness. No focal deficits. Vent Setting Ventilator Support Mode: AC Fraction of Inspired Oxygen pe: 30 Positive End Expiratory Pressu: 5.0 Results/Medications Result Diagram: 05/21/19 0400 05/21/19 0400 Results 24 hrs Laboratory Tests Test 05/21/19 04:00 White Blood Count 6.2 # Red Blood Count 3.34 L Hemoglobin 10.3 L Hematocrit 32.5 L Mean Corpuscular Volume 97.3 Mean Corpuscular Hemoglobin 30.8 Mean Corpuscular Hemoglobin Concent 31.7 L Red Cell Distribution Width 14.8 H Platelet Count 194 Mean Platelet Volume 10.8 H Immature Granulocytes % 0.600 H Neutrophils % 90.1 H Lymphocytes % 2.6 L Monocytes % 6.5 Eosinophils % 0.0 Basophils % 0.2 Nucleated Red Blood Cells % 0.0 Immature Granulocytes # 0.040 H Neutrophils # 5.6 Lymphocytes # 0.2 L Monocytes # 0.4 Eosinophils # 0.0 Basophils # 0.0 Nucleated Red Blood Cells # 0.0 Sodium Level 143 Potassium Level 4.3 Chloride Level 115 H Carbon Dioxide Level 22 Anion Gap 6 Blood Urea Nitrogen 44 H Creatinine 0.85 Est Glomerular Filtrat Rate mL/min Glucose Level 257 H Calcium Level 8.8 Magnesium Level 2.4 Total Bilirubin 0.2 Direct Bilirubin 0.00 Indirect Bilirubin 0.2 Aspartate Amino Transf (AST/SGOT) 21 Alanine Aminotransferase (ALT/SGPT) 39 Alkaline Phosphatase 39 L Total Protein 5.1 L Albumin 2.6 L Globulin 2.50 Albumin/Globulin Ratio 1.04 Medications Current Medications IV Flush (NS 3 ml) 3 ml PER PROTOCOL IV ; Start 05/18/19 at 02:00 Ondansetron HCl (Zofran Inj) 4 mg Q6H PRN IV NAUSEA/VOMITING; Start 05/18/19 at 02:00 Acetaminophen (Tylenol Tab) 650 mg Q6H PRN PO .PAIN 1-3 OR TEMP; Start 05/18/19 at 02:00 Atorvastatin Calcium (Lipitor) 20 mg HS PO Last administered on 05/20/19at 21:26; Admin Dose 20 MG; Start 05/18/19 at 21:00 Albuterol/ Ipratropium (Duoneb) 3 ml Q2H RESP THERAPY PRN HHN wheezing; Start 05/18/19 at 09:30 Methylprednisolone Sodium Succinate (Solu-Medrol) 40 mg Q8 IV Last administered on 05/21/19 06:19; Admin Dose 40 MG; Start 05/18/19 at 14:00 Fentanyl 100 ml @ 2.5 mls/hr PER PROTOCOL IV Last administered on 05/19/19 06:37; Admin Dose 5 MLS/HR; Start 05/18/19 at 11:00 Hydralazine HCl (Apresoline) 10 mg Q4H PRN IV sbp >160 Last administered on 05/18/19 13:10; Admin Dose 10 MG; Start 05/18/19 at 11:00 Clopidogrel Bisulfate (plaVIX) 75 mg DAILY GTB Last administered on 05/21/19 08:13; Admin Dose 75 MG; Start 05/18/19 at 11:00 Albuterol (Ventolin Hfa) 4 puff Q4H RESP THERAPY INH Last administered on 05/21/19 08:03; Admin Dose 4 PUFF; Start 05/18/19 at 17:00 Ipratropium [place] (Atrovent Hfa) 4 puff Q4H RESP THERAPY INH Last administered on 05/21/19 08:02; Admin Dose 4 PUFF; Start 05/18/19 at 17:00 Sodium Chloride 1,000 ml @ 100 mls/hr Q10H IV Last administered on 05/21/19 03:39; Admin Dose 100 MLS/HR; Start 05/18/19 at 16:00 Norepinephrine 250 ml @ 1.875 mls/ hr TITRATE IV Last administered on 05/19/19 12:25; Admin Dose 3.75 MLS/HR; Start 05/18/19 at 16:00 IV Flush (NS 10 ml) 10 ml PRN PRN IV FLUSH LINE; Start 05/18/19 at 17:30 Propofol 100 ml @ 2.055 mls/ hr Q12H IV Last administered on 05/21/19 03:39; Admin Dose 18.495 MLS/HR; Start 05/19/19 at 11:30 Levofloxacin/ Dextrose 100 ml @ 100 mls/hr Q24H IVPB Last administered on 05/20/19 14:54; Admin Dose 100 MLS/HR; Start 05/19/19 at 13:00 Cefepime HCl 50 ml @ 100 mls/hr Q12 IVPB Last administered on 05/21/19 08:12; Admin Dose 100 MLS/HR; Start 05/19/19 at 13:00 Budesonide (Pulmicort (Neb)) 0.5 mg BID RESP THERAPY HHN ; Start 05/20/19 at 20:00 Lansoprazole (Prevacid) 30 mg DAILY@06 GTB ; Start 05/21/19 at 06:00 Assessment/Plan Hospital Course (Demo Recall) Assessment 1. Acute hypoxemic and hypercapnic respiratory failure 2. Encephalopathy toxic metabolic 3. Aspiration versus community acquired pneumonia 4. Renal insufficiency likely prerenal 5. Bradycardia possibly secondary to propofol Plan 1. Continue mechanical ventilation post reintubation hold off on extubation trials given persistent productive sputum. 2. Tube feeding with water flush. 3. Vasopressors as needed 4. DVT GI prophylaxis 5. DC propofol transition to Versed not stable for Precedex. Critical care time 45 minutes. ABDIRIZAK BLAIR MD, [facility] May 21, 2019 10:00
--- NOTE | 2019-05-21 11:01 | CONS ---
Assessment/Plan Assessment/Plan Hospital Course (Demo Recall) ID PROGRESS NOTE CURRENT ABX: DAY # 3 => Cefepime + Levaquin s/p Vanco IV + Zosyn 24H INTERVAL SUMMARY * CLINICALLY STABLE == NO NEW EVENTS SINCE YESTERDAY -- Afebrile, WBC normalized, bradycardia * Elderly M orally intubated, vented, non-communicative, chart reviewed DIAGNOSTIC IMAGING * 05/21/19 CXR: Redemonstration of bibasilar atelectasis/infiltrate and likely small pleural effusions. * 05/20/19 CXR: Left greater right basilar atelectasis or infiltrates with probable small effusions. MICRO * (-)MRSA Nares * 05/18/19 Urine Cx (-) * 05/18/19 BCx (-) PHYSICAL EXAMINATION: GENERAL: VSS, NAD HEENT: AT, NC, NECK: Supple, CHEST: Rise symmetrical HEART: Pulse RRR ABDOMEN: Benign EXTREMITIES: Warm, dry -- 1+ edema pedal, hand, hyperkeratotic long toenails SKIN: No rash, no diaphoresis ID ASSESSMENT 84 yo M admit with: 1. Severe sepsis. 2. Acute hypoxemic respiratory failure. 3. Pneumonia, possibly aspiration. 4. Chronic obstructive pulmonary disease. 5. Acute possibly on chronic kidney disease. 6. Acute encephalopathy, CT of the head negative. (-)MRSA Nares ABX ALLERGIES: KNDA INVASIVES: PICC, FC CURRENT ABX: DAY #3 => Cefepime + Levaquin s/p Vanco IV + Zosyn ID RECOMMENDATIONS/PLAN: 1. Continue current ABX and supportive care . . Consultation Date/Type/Reason Admit Date/Time May 18, 2019 at 00:50 Initial Consult Date 05/18/19 Requesting Provider: VIRGEN MCQUEEN Date/Time of Note DATE: 05/21/19 TIME: 11:00 Exam/Review of Systems Exam Vitals Vital Signs Date Temp Pulse Resp B/P (MAP) Pulse Ox O2 O2 Flow FiO2 Time Delivery Rate 05/21/19 60 24 135/62 99 Mechanical 10:00 (86) Ventilator 05/21/19 40 08:00 05/21/19 98.6 08:00 05/19/19 15.0 11:00 Intake and Output 05/20/19 05/20/19 05/21/19 1515:00 23:00 07:00 IntakeIntake Total 932.11 ml 1402.825 ml 1447.465 ml OutputOutput Total 360 ml 440 ml 410 ml BalanceBalance 572.11 ml 962.825 ml 1037.465 ml Results Result Diagram: 05/21/190 05/21/19 0400 Results 24hrs Laboratory Tests Test 05/21/19 04:00 White Blood Count 6.2 # Red Blood Count 3.34 L Hemoglobin 10.3 L Hematocrit 32.5 L Mean Corpuscular Volume 97.3 Mean Corpuscular Hemoglobin 30.8 Mean Corpuscular Hemoglobin Concent 31.7 L Red Cell Distribution Width 14.8 H Platelet Count 194 Mean Platelet Volume 10.8 H Immature Granulocytes % 0.600 H Neutrophils % 90.1 H Lymphocytes % 2.6 L Monocytes % 6.5 Eosinophils % 0.0 Basophils % 0.2 Nucleated Red Blood Cells % 0.0 Immature Granulocytes # 0.040 H Neutrophils # 5.6 Lymphocytes # 0.2 L Monocytes # 0.4 Eosinophils # 0.0 Basophils # 0.0 Nucleated Red Blood Cells # 0.0 Sodium Level 143 Potassium Level 4.3 Chloride Level 115 H Carbon Dioxide Level 22 Anion Gap 6 Blood Urea Nitrogen 44 H Creatinine 0.85 Est Glomerular Filtrat Rate mL/min Glucose Level 257 H Calcium Level 8.8 Magnesium Level 2.4 Total Bilirubin 0.2 Direct Bilirubin 0.00 Indirect Bilirubin 0.2 Aspartate Amino Transf (AST/SGOT) 21 Alanine Aminotransferase (ALT/SGPT) 39 Alkaline Phosphatase 39 L Total Protein 5.1 L Albumin 2.6 L Globulin 2.50 Albumin/Globulin Ratio 1.04 Medications Medication Current Medications IV Flush (NS 3 ml) 3 ml PER PROTOCOL IV ; Start 05/18/19 at 02:00 Ondansetron HCl (Zofran Inj) 4 mg Q6H PRN IV NAUSEA/VOMITING; Start 05/18/19 at 02:00 Acetaminophen (Tylenol Tab) 650 mg Q6H PRN PO .PAIN 1-3 OR TEMP; Start 05/18/19 at 02:00 Atorvastatin Calcium (Lipitor) 20 mg HS PO Last administered on 05/20/19at 21:26; Admin Dose 20 MG; Start 05/18/19 at 21:00 Albuterol/ Ipratropium (Duoneb) 3 ml Q2H RESP THERAPY PRN HHN wheezing; Start 05/18/19 at 09:30 Methylprednisolone Sodium Succinate (Solu-Medrol) 40 mg Q8 IV Last administered on 05/21/19 06:19; Admin Dose 40 MG; Start 05/18/19 at 14:00 Fentanyl 100 ml @ 2.5 mls/hr PER PROTOCOL IV Last administered on 05/19/19 06:37; Admin Dose 5 MLS/HR; Start 05/18/19 at 11:00 Hydralazine HCl (Apresoline) 10 mg Q4H PRN IV sbp >160 Last administered on 05/18/19 13:10; Admin Dose 10 MG; Start 05/18/19 at 11:00 Clopidogrel Bisulfate (plaVIX) 75 mg DAILY GTB Last administered on 05/21/19 08:13; Admin Dose 75 MG; Start 05/18/19 at 11:00 Albuterol (Ventolin Hfa) 4 puff Q4H RESP THERAPY INH Last administered on 05/21/19 08:03; Admin Dose 4 PUFF; Start 05/18/19 at 17:00 Ipratropium [place] (Atrovent Hfa) 4 puff Q4H RESP THERAPY INH Last administered on 05/21/19 08:02; Admin Dose 4 PUFF; Start 05/18/19 at 17:00 Sodium Chloride 1,000 ml @ 100 mls/hr Q10H IV Last administered on 05/21/19 03:39; Admin Dose 100 MLS/HR; Start 05/18/19 at 16:00 Norepinephrine 250 ml @ 1.875 mls/ hr TITRATE IV Last administered on 05/19/19 12:25; Admin Dose 3.75 MLS/HR; Start 05/18/19 at 16:00 IV Flush (NS 10 ml) 10 ml PRN PRN IV FLUSH LINE; Start 05/18/19 at 17:30 Propofol 100 ml @ 2.055 mls/ hr Q12H IV Last administered on 05/21/19 10:49; Admin Dose 12.33 MLS/HR; Start 05/19/19 at 11:30 Levofloxacin/ Dextrose 100 ml @ 100 mls/hr Q24H IVPB Last administered on 05/20/19 14:54; Admin Dose 100 MLS/HR; Start 05/19/19 at 13:00 Cefepime HCl 50 ml @ 100 mls/hr Q12 IVPB Last administered on 05/21/19at 08:12; Admin Dose 100 MLS/HR; Start 05/19/19 at 13:00 Budesonide (Pulmicort (Neb)) 0.5 mg BID RESP THERAPY HHN ; Start 05/20/19 at 20:00 Lansoprazole (Prevacid) 30 mg DAILY@06 GTB ; Start 05/21/19 at 06:00 KATHI LUKE NP May 21, 2019 11:01
[2019-05-21] MEDS: LEVOFLOXACIN 500MG/D5W (PMX) 100 ML IVPB SCH (13:51)
[2019-05-21] MEDS ORDERED: IPRATROPIUM (HFA) 12.9 GM INHALER INH SCH (18:00)
[2019-05-21] MEDS ORDERED: ALBUTEROL HFA 8 GM INHALER INH SCH (18:00)
[2019-05-21] MEDS: DEXTROSE 5%-0.45% NACL 1,000 ML IV SCH (18:01)
[2019-05-21] MEDS: MIDAZOLAM (DRIP) 50 mg/50 mL 50 ML IV SCH ×2 (18:01→23:59)
--- NOTE | 2019-05-21 20:47 | CONS ---
Assessment/Plan Assessment/Plan Assessment/Plan (Daily) 1. acute hyperrkalemia - resolved 2. Acute kidney injury due to ATN from septic shock + prerenal azotemia 3. acute hypercapnic respiratory failure 2/2 Septic shock and PNA,, intubated on ventilator 4. H/o HTN 5. h/o HL 6. Septic shock due to bilateral PNA 7. Hypotension and Bradycardia Plan: BUN/Cr 44/0.85, other electrolytes stable IV abx Cefepime and Levaquin , Renally dose all abx and monitor electorlytes, ID following Levophed for BP support IV solu-medrol 40mg Q 8 hr d/c IVF NS, starat D51/2 NS at 100 cc/hr Stopped HCTZ, amlodpine, Losartan and Metoprolol - monitor BP and wll resume one medication at a time- meanwhile use IV hydralazine prn will follow up Consultation Date/Type/Reason Admit Date/Time May 18, 2019 at 00:50 Initial Consult Date 05/18/19 Type of Consult NEPHROLOGY Requesting Provider: VIRGEN MCQUEEN Date/Time of Note DATE: 05/21/19 TIME: 20:47 Exam/Review of Systems Exam Vitals Vital Signs Date Temp Pulse Resp B/P (MAP) Pulse Ox O2 O2 Flow FiO2 Time Delivery Rate 05/21/19 30 20:00 05/21/19 69 24 100 19:35 05/21/19 139/62 18:30 (87) 05/21/19 Mechanical 16:00 Ventilator 05/21/19 98.6 08:00 05/19/19 15.0 11:00 Intake and Output 05/20/19 05/20/19 05/21/19 1515:00 23:00 07:00 IntakeIntake Total 932.11 ml 1402.825 ml 1497.465 ml OutputOutput Total 360 ml 440 ml 440 ml BalanceBalance 572.11 ml 962.825 ml 1057.465 ml Exam Constitutional: non-verbal ENMT: intubated Neck: supple, non-tender Respiratory: congested cough, crackles/rales, diminished breath sounds Cardiovascular: regular rate and rhythm Gastrointestinal: soft, non-tender Musculoskeletal: muscle weakness, swelling (1+ edema ) Neurological: other (intubated sedated on ventilator ) Results Result Diagram: 05/21/19 0400 05/21/19 0400 Results 24hrs Laboratory Tests Test 05/21/19 04:00 White Blood Count 6.2 # Red Blood Count 3.34 L Hemoglobin 10.3 L Hematocrit 32.5 L Mean Corpuscular Volume 97.3 Mean Corpuscular Hemoglobin 30.8 Mean Corpuscular Hemoglobin Concent 31.7 L Red Cell Distribution Width 14.8 H Platelet Count 194 Mean Platelet Volume 10.8 H Immature Granulocytes % 0.600 H Neutrophils % 90.1 H Lymphocytes % 2.6 L Monocytes % 6.5 Eosinophils % 0.0 Basophils % 0.2 Nucleated Red Blood Cells % 0.0 Immature Granulocytes # 0.040 H Neutrophils # 5.6 Lymphocytes # 0.2 L Monocytes # 0.4 Eosinophils # 0.0 Basophils # 0.0 Nucleated Red Blood Cells # 0.0 Sodium Level 143 Potassium Level 4.3 Chloride Level 115 H Carbon Dioxide Level 22 Anion Gap 6 Blood Urea Nitrogen 44 H Creatinine 0.85 Est Glomerular Filtrat Rate mL/min Glucose Level 257 H Calcium Level 8.8 Magnesium Level 2.4 Total Bilirubin 0.2 Direct Bilirubin 0.00 Indirect Bilirubin 0.2 Aspartate Amino Transf (AST/SGOT) 21 Alanine Aminotransferase (ALT/SGPT) 39 Alkaline Phosphatase 39 L Total Protein 5.1 L Albumin 2.6 L Globulin 2.50 Albumin/Globulin Ratio 1.04 Medications Medication Current Medications IV Flush (NS 3 ml) 3 ml PER PROTOCOL IV ; Start 05/18/19 at 02:00 Ondansetron HCl (Zofran Inj) 4 mg Q6H PRN IV NAUSEA/VOMITING; Start 05/18/19 at 02:00 Acetaminophen (Tylenol Tab) 650 mg Q6H PRN PO .PAIN 1-3 OR TEMP; Start 05/18/19 at 02:00 Atorvastatin Calcium (Lipitor) 20 mg HS PO Last administered on 05/20/19at 21:26; Admin Dose 20 MG; Start 05/18/19 at 21:00 Albuterol/ Ipratropium (Duoneb) 3 ml Q2H RESP THERAPY PRN HHN wheezing; Start 05/18/19 at 09:30 Methylprednisolone Sodium Succinate (Solu-Medrol) 40 mg Q8 IV Last administered on 05/21/19at 13:53; Admin Dose 40 MG; Start 05/18/19 at 14:00 Fentanyl 100 ml @ 2.5 mls/hr PER PROTOCOL IV Last administered on 05/19/19 06:37; Admin Dose 5 MLS/HR; Start 05/18/19 at 11:00 Hydralazine HCl (Apresoline) 10 mg Q4H PRN IV sbp >160 Last administered on 05/18/19 13:10; Admin Dose 10 MG; Start 05/18/19 at 11:00 Clopidogrel Bisulfate (plaVIX) 75 mg DAILY GTB Last administered on 05/21/19 08:13; Admin Dose 75 MG; Start 05/18/19 at 11:00 Norepinephrine 250 ml @ 1.875 mls/ hr TITRATE IV Last administered on 12:25; Admin Dose 3.75 MLS/HR; Start 05/18/19 at 16:00 IV Flush (NS 10 ml) 10 ml PRN PRN IV FLUSH LINE; Start 05/18/19 at 17:30 Propofol 100 ml @ 2.055 mls/ hr Q12H IV Last administered on 05/21/19 10:49; Admin Dose 12.33 MLS/HR; Start 05/19/19 at 11:30 Levofloxacin/ Dextrose 100 ml @ 100 mls/hr Q24H IVPB Last administered on 05/21/19 13:51; Admin Dose 100 MLS/HR; Start 05/19/19 at 13:00 Cefepime HCl 50 ml @ 100 mls/hr Q12 IVPB Last administered on 05/21/19 08:12; Admin Dose 100 MLS/HR; Start 05/19/19 at 13:00 Budesonide (Pulmicort (Neb)) 0.5 mg BID RESP THERAPY HHN Last administered on 05/21/19 19:40; Admin Dose 0.5 MG; Start 05/20/19 at 20:00 Lansoprazole (Prevacid) 30 mg DAILY@06 GTB ; Start 05/21/19 at 06:00 Midazolam HCl 50 ml @ 1 mls/hr TITRATE IV Last administered on 05/21/19 18:01; Admin Dose 4 MLS/HR; Start 05/21/19 at 15:30 Dextrose/Sodium Chloride 1,000 ml @ 100 mls/hr Q10H IV Last administered on 7/21/19at 18:01; Admin Dose 100 MLS/HR; Start 05/21/19 at 14:30 Albuterol (Ventolin Hfa) 4 puff Q6H RESP THERAPY INH Last administered on 05/21/19 19:40; Admin Dose 4 PUFF; Start 05/21/19 at 20:00 Ipratropium [place] (Atrovent Hfa) 4 puff Q6H RESP THERAPY INH Last administered on 05/21/19 19:40; Admin Dose 4 PUFF; Start 05/21/19 at 20:00 EDGARD CLARKE MD May 21, 2019 20:47
[2019-05-21] MEDS: ATORVASTATIN 20 MG TAB PO SCH (21:32)
[2019-05-22] VITALS (52 sets, daily range): BP systolic 133–203; BP diastolic 65–86; PULSE 75–124; RESP 16–40
[2019-05-22] MEDS: DEXTROSE 5%-0.45% NACL 1,000 ML IV SCH ×2 (00:08→08:57)
[2019-05-22] MEDS: hydrALAzine 20 MG INJ IV PRN ×2 (00:08→09:04)
[2019-05-22] MEDS: ALBUTEROL HFA 8 GM INHALER INH SCH ×4 (01:17→19:50)
[2019-05-22] MEDS: IPRATROPIUM (HFA) 12.9 GM INHALER INH SCH ×4 (01:17→19:50)
[2019-05-22] MEDS: morphine 4 MG/ML VIAL IV PRN (01:49)
[2019-05-22] MEDS ORDERED: METOPROLOL 5 MG INJ IV PRN (02:00)
[2019-05-22] MEDS: METHYLPREDNISOLONE 40 MG INJ IV SCH ×3 (05:32→21:05)
[2019-05-22] MEDS: LANSOPRAZOLE 30 MG CAP GTB SCH (05:32)
[2019-05-22] MEDS: BUDESONIDE (NEB) 0.5MG/2ML AMP HHN SCH ×2 (08:02→19:50)
[2019-05-22] MEDS: CLOPIDOGREL 75 MG TAB GTB SCH (08:56)
[2019-05-22] MEDS: CEFEPIME 1GM/50 ML (PMX) 50 ML IVPB SCH ×2 (08:56→20:46)
--- NOTE | 2019-05-22 09:56 | PN ---
Date/Time of Note Date/Time of Note DATE: 05/22/19 TIME: 09:56 Assessment/Plan VTE Prophylaxis Risk score (from Ns)>0 risk: 7 SCD applied (from Nsg): Yes Pharmacological prophylaxis: other Lines/Catheters IV Catheter Type (from Nrsg): PICC Line Central line still needed: Yes Urinary Cath still in place: Yes Reason Cath still needed: urinary retention Assessment/Plan Assessment/Plan 1. Acute hypoxic respiratory failure - Pulm on board and appreciate recommendations. CPAP trial and extubate when able - CT chest results noted with emphysema and bilateral effusions with atelectasis vs infiltrate 2. COPD exacerbation - currently on steroids and neb tx 3. Acute encephalopathy, resolving - Patient baseline is alert and oriented x3 with some mild memory loss - CT head noted, no acute issues - Neurology consultation appreciated 4. Acute kidney injury- resolved - Nephrology consultation appreciated 5. Hypertension - will d/c fluids which is contributing to elevated Bp - restarting home medications and will adjust as needed 6. Mild cognitive impairment - Neurology on board - Baseline is alert and oriented x3, with some memory loss 7. Mild carotid stenosis, right ICA - Continue on Plavix and statin 8. Disposition - Continue management in ICU while requiring mechanical ventilation - [place] evaluation placed >30 minutes of critical care time spend with patient Result Diagram: 05/22/19 0400 05/22/19 0415 Results 24hrs Laboratory Tests Test 05/22/19 04:00 05/22/19 04:15 05/22/19 05:37 White Blood Count 10.0 # Red Blood Count 3.91 L Hemoglobin 12.0 L Hematocrit 38.0 L Mean Corpuscular Volume 97.2 Mean Corpuscular Hemoglobin 30.7 Mean Corpuscular 31.6 L Hemoglobin Concent Red Cell Distribution Width 15.0 H Platelet Count 210 Mean Platelet Volume 10.4 Immature Granulocytes % 0.700 H Neutrophils % 90.5 H Lymphocytes % 1.7 L Monocytes % 7.0 Eosinophils % 0.0 Basophils % 0.1 Nucleated Red Blood Cells % 0.0 Immature Granulocytes # 0.070 H Neutrophils # 9.1 H Lymphocytes # 0.2 L Monocytes # 0.7 Eosinophils # 0.0 Basophils # 0.0 Nucleated Red Blood Cells # 0.0 Sodium Level 141 Potassium Level 4.5 Chloride Level 113 H Carbon Dioxide Level 23 Anion Gap 5 Blood Urea Nitrogen 37 H Creatinine 0.72 Est Glomerular Filtrat Rate mL/min Glucose Level 320 H Calcium Level 9.2 Phosphorus Level 2.5 Magnesium Level 2.5 Lab Scanned Report REFERENCE LAB Subjective 24 Hr Interval Summary Free Text/Dictation Patient awake this am and will plan for CPAP trial. Slightly tachy this am and with elevated BP. No acute overnight events. Exam/Review of Systems Exam Vitals Vital Signs Date Temp Pulse Resp B/P (MAP) Pulse Ox O2 O2 Flow FiO2 Time Delivery Rate 05/22/19 99 21 203/81 100 Mechanical 09:00 (121) Ventilator 05/22/19 30 08:00 05/22/19 98.3 08:00 05/19/19 15.0 11:00 Intake and Output 05/21/19 05/21/19 05/22/19 1515:00 23:00 07:00 IntakeIntake Total 1237.845 ml 1959 ml 1442 ml OutputOutput Total 475 ml 470 ml 460 ml BalanceBalance 762.845 ml 1489 ml 982 ml Exam General: Patient is laying in bed intubated, shaking head to questions Eyes: EOMI, pupils reactive to light Neck: Supple, nontender, midline Respiratory: Coarse to auscultation bilaterally Cardiovascular: S1, S2, tachycardia, regular rhythm, no obvious murmurs Gastrointestinal: soft, non-tender to palpation, bowel sounds heard. Skin: No new skin lesions Results Results 24hrs Laboratory Tests Test 05/22/19 04:00 05/22/19 04:15 05/22/19 05:37 White Blood Count 10.0 # Red Blood Count 3.91 L Hemoglobin 12.0 L Hematocrit 38.0 L Mean Corpuscular Volume 97.2 Mean Corpuscular Hemoglobin 30.7 Mean Corpuscular 31.6 L Hemoglobin Concent Red Cell Distribution Width 15.0 H Platelet Count 210 Mean Platelet Volume 10.4 Immature Granulocytes % 0.700 H Neutrophils % 90.5 H Lymphocytes % 1.7 L Monocytes % 7.0 Eosinophils % 0.0 Basophils % 0.1 Nucleated Red Blood Cells % 0.0 Immature Granulocytes # 0.070 H Neutrophils # 9.1 H Lymphocytes # 0.2 L Monocytes # 0.7 Eosinophils # 0.0 Basophils # 0.0 Nucleated Red Blood Cells # 0.0 Sodium Level 141 Potassium Level 4.5 Chloride Level 113 H Carbon Dioxide Level 23 Anion Gap 5 Blood Urea Nitrogen 37 H Creatinine 0.72 Est Glomerular Filtrat Rate mL/min Glucose Level 320 H Calcium Level 9.2 Phosphorus Level 2.5 Magnesium Level 2.5 Lab Scanned Report REFERENCE LAB Medications Medication Current Medications IV Flush (NS 3 ml) 3 ml PER PROTOCOL IV ; Start 05/18/19 at 02:00 Ondansetron HCl (Zofran Inj) 4 mg Q6H PRN IV NAUSEA/VOMITING; Start 05/18/19 at 02:00 Acetaminophen (Tylenol Tab) 650 mg Q6H PRN PO .PAIN 1-3 OR TEMP; Start 05/18/19 at 02:00 Atorvastatin Calcium (Lipitor) 20 mg HS PO Last administered on 05/21/19 21:32; Admin Dose 20 MG; Start 05/18/19 at 21:00 Albuterol/ Ipratropium (Duoneb) 3 ml Q2H RESP THERAPY PRN HHN wheezing; Start 05/18/19 at 09:30 Methylprednisolone Sodium Succinate (Solu-Medrol) 40 mg Q8 IV Last administered on 05/22/19 05:32; Admin Dose 40 MG; Start 05/18/19 at 14:00 Fentanyl 100 ml @ 2.5 mls/hr PER PROTOCOL IV Last administered on 05/19/19 06:37; Admin Dose 5 MLS/HR; Start 05/18/19 at 11:00 Hydralazine HCl (Apresoline) 10 mg Q4H PRN IV sbp >160 Last administered on 05/22/19 09:04; Admin Dose 10 MG; Start 05/18/19 at 11:00 Clopidogrel Bisulfate (plaVIX) 75 mg DAILY GTB Last administered on 05/22/19 08:56; Admin Dose 75 MG; Start 05/18/19 at 11:00 Norepinephrine 250 ml @ 1.875 mls/ hr TITRATE IV Last administered on 05/19/19 12:25; Admin Dose 3.75 MLS/HR; Start 05/18/19 at 16:00 IV Flush (NS 10 ml) 10 ml PRN PRN IV FLUSH LINE; Start 05/18/19 at 17:30 Propofol 100 ml @ 2.055 mls/ hr Q12H IV Last administered on 05/21/19 10:49; Admin Dose 12.33 MLS/HR; Start 05/19/19 at 11:30 Levofloxacin/ Dextrose 100 ml @ 100 mls/hr Q24H IVPB Last administered on 05/21/19 13:51; Admin Dose 100 MLS/HR; Start 05/19/19 at 13:00 Cefepime HCl 50 ml @ 100 mls/hr Q12 IVPB Last administered on 05/22/19 08:56; Admin Dose 100 MLS/HR; Start 05/19/19 at 13:00 Budesonide (Pulmicort (Neb)) 0.5 mg BID RESP THERAPY HHN Last administered on 05/22/19 08:02; Admin Dose 0.5 MG; Start 05/20/19 at 20:00 Lansoprazole (Prevacid) 30 mg DAILY@06 GTB ; Start 05/21/19 at 06:00 Midazolam HCl 50 ml @ 1 mls/hr TITRATE IV Last administered on 05/21/19 23:59; Admin Dose 6 MLS/HR; Start 05/21/19 at 15:30 Dextrose/Sodium Chloride 1,000 ml @ 100 mls/hr Q10H IV Last administered on 05/22/19 08:57; Admin Dose 100 MLS/HR; Start 05/21/19 at 14:30 Albuterol (Ventolin Hfa) 4 puff Q6H RESP THERAPY INH Last administered on 05/22/19 08:02; Admin Dose 4 PUFF; Start 05/21/19 at 20:00 Ipratropium [place] (Atrovent Hfa) 4 puff Q6H RESP THERAPY INH Last administered on 05/22/19 08:02; Admin Dose 4 PUFF; Start 05/21/19 at 20:00 Metoprolol Tartrate (Lopressor) 5 mg Q4 PRN IV SBP > 160 Last administered on 05/22/19 01:59; Admin Dose 5 MG; Start 05/22/19 at 02:00 Morphine Sulfate (morphine) 3 mg Q4H PRN IV SEVERE PAIN LEVEL 7-10 Last administered on 05/22/19 01:49; Admin Dose 3 MG; Start 05/22/19 at 02:00 SOFIA AYOUB MD May 22, 2019 09:56
--- NOTE | 2019-05-22 10:15 | CONS ---
Consult Date/Type/Reason Admit Date/Time May 18, 2019 at 00:50 Initial Consult Date 05/18/19 Type of Consult Pulmonary Requesting Provider: VIRGEN MCQUEEN Date/Time of Note DATE: 05/22/19 TIME: 10:13 Subjective Patient stable no new events. Objective Vital Signs Date Temp Pulse Resp B/P (MAP) Pulse Ox O2 O2 Flow FiO2 Time Delivery Rate 05/22/19 99 21 203/81 100 Mechanical 09:00 (121) Ventilator 05/22/19 30 08:00 05/22/19 98.3 08:00 05/19/19 15.0 11:00 Intake and Output 05/21/19 05/21/19 05/22/19 1515:00 23:00 07:00 IntakeIntake Total 1237.845 ml 1959 ml 1442 ml OutputOutput Total 475 ml 470 ml 460 ml BalanceBalance 762.845 ml 1489 ml 982 ml Exam GENERAL: Elderly appearing gentleman orally intubated on mechanical ventilation. VITAL SIGNS: per chart NECK: Supple. No JVD or lymphadenopathy. CARDIAC EXAM: S1, S2. No added sounds or murmurs. CHEST: Diminished air entry bilaterally ABDOMEN: Soft, nontender. No guarding or rebound. EXTREMITIES: No cyanosis, clubbing or edema. NEUROLOGIC: Generalized weakness. No focal deficits Vent Setting Ventilator Support Mode: AC Fraction of Inspired Oxygen pe: 30 Positive End Expiratory Pressu: 5.0 Results/Medications Result Diagram: 05/22/19 0400 05/22/19 0415 Results 24 hrs Laboratory Tests Test 05/22/19 04:00 05/22/19 04:15 05/22/19 05:37 White Blood Count 10.0 # Red Blood Count 3.91 L Hemoglobin 12.0 L Hematocrit 38.0 L Mean Corpuscular Volume 97.2 Mean Corpuscular Hemoglobin 30.7 Mean Corpuscular 31.6 L Hemoglobin Concent Red Cell Distribution Width 15.0 H Platelet Count 210 Mean Platelet Volume 10.4 Immature Granulocytes % 0.700 H Neutrophils % 90.5 H Lymphocytes % 1.7 L Monocytes % 7.0 Eosinophils % 0.0 Basophils % 0.1 Nucleated Red Blood Cells % 0.0 Immature Granulocytes # 0.070 H Neutrophils # 9.1 H Lymphocytes # 0.2 L Monocytes # 0.7 Eosinophils # 0.0 Basophils # 0.0 Nucleated Red Blood Cells # 0.0 Sodium Level 141 Potassium Level 4.5 Chloride Level 113 H Carbon Dioxide Level 23 Anion Gap 5 Blood Urea Nitrogen 37 H Creatinine 0.72 Est Glomerular Filtrat Rate mL/min Glucose Level 320 H Calcium Level 9.2 Phosphorus Level 2.5 Magnesium Level 2.5 Lab Scanned Report REFERENCE LAB Medications Current Medications IV Flush (NS 3 ml) 3 ml PER PROTOCOL IV ; Start 05/18/19 at 02:00 Ondansetron HCl (Zofran Inj) 4 mg Q6H PRN IV NAUSEA/VOMITING; Start 05/18/19 at 02:00 Acetaminophen (Tylenol Tab) 650 mg Q6H PRN PO .PAIN 1-3 OR TEMP; Start 05/18/19 at 02:00 Atorvastatin Calcium (Lipitor) 20 mg HS PO Last administered on 05/21/19at 21:32; Admin Dose 20 MG; Start 05/18/19 at 21:00 Albuterol/ Ipratropium (Duoneb) 3 ml Q2H RESP THERAPY PRN HHN wheezing; Start 05/18/19 at 09:30 Methylprednisolone Sodium Succinate (Solu-Medrol) 40 mg Q8 IV Last administered on 05/22/19 05:32; Admin Dose 40 MG; Start 05/18/19 at 14:00 Fentanyl 100 ml @ 2.5 mls/hr PER PROTOCOL IV Last administered on 05/19/19 06:37; Admin Dose 5 MLS/HR; Start 05/18/19 at 11:00 Hydralazine HCl (Apresoline) 10 mg Q4H PRN IV sbp >160 Last administered on 05/22/19 09:04; Admin Dose 10 MG; Start 05/18/19 at 11:00 Clopidogrel Bisulfate (plaVIX) 75 mg DAILY GTB Last administered on 05/22/19 08:56; Admin Dose 75 MG; Start 05/18/19 at 11:00 Norepinephrine 250 ml @ 1.875 mls/ hr TITRATE IV Last administered on 05/19/19 12:25; Admin Dose 3.75 MLS/HR; Start 05/18/19 at 16:00 IV Flush (NS 10 ml) 10 ml PRN PRN IV FLUSH LINE; Start 05/18/19 at 17:30 Propofol 100 ml @ 2.055 mls/ hr Q12H IV Last administered on 05/21/19 10:49; Admin Dose 12.33 MLS/HR; Start 05/19/19 at 11:30 Levofloxacin/ Dextrose 100 ml @ 100 mls/hr Q24H IVPB Last administered on 05/21/19 13:51; Admin Dose 100 MLS/HR; Start 05/19/19 at 13:00 Cefepime HCl 50 ml @ 100 mls/hr Q12 IVPB Last administered on 05/22/19 08:56; Admin Dose 100 MLS/HR; Start 05/19/19 at 13:00 Budesonide (Pulmicort (Neb)) 0.5 mg BID RESP THERAPY HHN Last administered on 05/22/19 08:02; Admin Dose 0.5 MG; Start 05/20/19 at 20:00 Lansoprazole (Prevacid) 30 mg DAILY@06 GTB ; Start 05/21/19 at 06:00 Midazolam HCl 50 ml @ 1 mls/hr TITRATE IV Last administered on 05/21/19 23:59; Admin Dose 6 MLS/HR; Start 05/21/19 at 15:30 Dextrose/Sodium Chloride 1,000 ml @ 100 mls/hr Q10H IV Last administered on 05/22/19 08:57; Admin Dose 100 MLS/HR; Start 05/21/19 at 14:30 Albuterol (Ventolin Hfa) 4 puff Q6H RESP THERAPY INH Last administered on 05/22/19 08:02; Admin Dose 4 PUFF; Start 05/21/19 at 20:00 Ipratropium [place] (Atrovent Hfa) 4 puff Q6H RESP THERAPY INH Last administered on 05/22/19 08:02; Admin Dose 4 PUFF; Start 05/21/19 at 20:00 Metoprolol Tartrate (Lopressor) 5 mg Q4 PRN IV SBP > 160 Last administered on 05/22/19 01:59; Admin Dose 5 MG; Start 05/22/19 at 02:00 Morphine Sulfate (morphine) 3 mg Q4H PRN IV SEVERE PAIN LEVEL 7-10 Last administered on 05/22/19 01:49; Admin Dose 3 MG; Start 05/22/19 at 02:00 Assessment/Plan Hospital Course (Demo Recall) Assessment 1. Acute hypoxemic and hypercapnic respiratory failure 2. Encephalopathy toxic metabolic 3. Aspiration versus community acquired pneumonia 4. Renal insufficiency likely prerenal 5. Bradycardia possibly secondary to propofol Plan 1. CPAP trial today and extubation if tolerated 2. Tube feeding with water flush. 3. Vasopressors as needed 4. DVT GI prophylaxis 5. Continue low-dose Versed for CPAP trial Critical care time 45 minutes. Will likely require [facility] ABDIRIZAK BLAIR MD, [facility] May 22, 2019 10:15
[2019-05-22] MEDS: MIDAZOLAM (DRIP) 50 mg/50 mL 50 ML IV SCH ×2 (11:03→20:47)
[2019-05-22] MEDS: PROPOFOL 100 ML IV SCH ×2 (11:04→21:05)
--- NOTE | 2019-05-22 11:42 | CONS ---
Assessment/Plan Assessment/Plan Assessment/Plan (Daily) 1. acute hyperrkalemia - resolved 2. Acute kidney injury due to ATN from septic shock + prerenal azotemia 3. acute hypercapnic respiratory failure 2/2 Septic shock and PNA,, intubated on ventilator 4. H/o HTN 5. h/o HL 6. Septic shock due to bilateral PNA 7. Hypotension and Bradycardia Plan: BUN/Cr 37/0.72, other electrolytes stable IV abx Cefepime and Levaquin , Renally dose all abx and monitor electorlytes, ID following Levophed for BP support IV solu-medrol 40mg Q 8 hr, off IVF Now Now BP is running on Higher side, resumed amlodipine 5 mg PO BID and hydralazine 25 mg PO BID- meanwhile use IV hydralazine prn will follow up Consultation Date/Type/Reason Admit Date/Time May 18, 2019 at 00:50 Initial Consult Date 05/18/19 Type of Consult NEPHROLOGY Requesting Provider: VIRGEN MCQUEEN Date/Time of Note DATE: 05/22/19 TIME: 11:42 Exam/Review of Systems Exam Vitals Vital Signs Date Temp Pulse Resp B/P (MAP) Pulse Ox O2 O2 Flow FiO2 Time Delivery Rate 05/22/19 118 24 156/72 100 Mechanical 11:00 (100) Ventilator 05/22/19 30 08:00 05/22/19 98.3 08:00 05/19/19 15.0 11:00 Intake and Output 05/21/19 05/21/19 05/22/19 1515:00 23:00 07:00 IntakeIntake Total 1237.845 ml 1959 ml 1442 ml OutputOutput Total 475 ml 470 ml 460 ml BalanceBalance 762.845 ml 1489 ml 982 ml Exam Constitutional: non-verbal ENMT: intubated Neck: supple, non-tender Respiratory: congested cough, crackles/rales, diminished breath sounds Cardiovascular: regular rate and rhythm Gastrointestinal: soft, non-tender Musculoskeletal: muscle weakness, swelling (1+ edema ) Neurological: other (intubated sedated on ventilator ) Results Result Diagram: 05/22/19 0400 05/22/19 0415 Results 24hrs Laboratory Tests Test 05/22/19 04:00 05/22/19 04:15 05/22/19 05:37 White Blood Count 10.0 # Red Blood Count 3.91 L Hemoglobin 12.0 L Hematocrit 38.0 L Mean Corpuscular Volume 97.2 Mean Corpuscular Hemoglobin 30.7 Mean Corpuscular 31.6 L Hemoglobin Concent Red Cell Distribution Width 15.0 H Platelet Count 210 Mean Platelet Volume 10.4 Immature Granulocytes % 0.700 H Neutrophils % 90.5 H Lymphocytes % 1.7 L Monocytes % 7.0 Eosinophils % 0.0 Basophils % 0.1 Nucleated Red Blood Cells % 0.0 Immature Granulocytes # 0.070 H Neutrophils # 9.1 H Lymphocytes # 0.2 L Monocytes # 0.7 Eosinophils # 0.0 Basophils # 0.0 Nucleated Red Blood Cells # 0.0 Sodium Level 141 Potassium Level 4.5 Chloride Level 113 H Carbon Dioxide Level 23 Anion Gap 5 Blood Urea Nitrogen 37 H Creatinine 0.72 Est Glomerular Filtrat Rate mL/min Glucose Level 320 H Calcium Level 9.2 Phosphorus Level 2.5 Magnesium Level 2.5 Lab Scanned Report REFERENCE LAB Medications Medication Current Medications IV Flush (NS 3 ml) 3 ml PER PROTOCOL IV ; Start 05/18/19 at 02:00 Ondansetron HCl (Zofran Inj) 4 mg Q6H PRN IV NAUSEA/VOMITING; Start 05/18/19 at 02:00 Acetaminophen (Tylenol Tab) 650 mg Q6H PRN PO .PAIN 1-3 OR TEMP; Start 05/18/19 at 02:00 Atorvastatin Calcium (Lipitor) 20 mg HS PO Last administered on 05/21/19at 21:32; Admin Dose 20 MG; Start 05/18/19 at 21:00 Albuterol/ Ipratropium (Duoneb) 3 ml Q2H RESP THERAPY PRN HHN wheezing; Start 05/18/19 at 09:30 Methylprednisolone Sodium Succinate (Solu-Medrol) 40 mg Q8 IV Last administered on 05/22/19at 05:32; Admin Dose 40 MG; Start 05/18/19 at 14:00 Fentanyl 100 ml @ 2.5 mls/hr PER PROTOCOL IV Last administered on 05/19/19at 06:37; Admin Dose 5 MLS/HR; Start 05/18/19 at 11:00 Hydralazine HCl (Apresoline) 10 mg Q4H PRN IV sbp >160 Last administered on 05/22/19 09:04; Admin Dose 10 MG; Start 05/18/19 at 11:00 Clopidogrel Bisulfate (plaVIX) 75 mg DAILY GTB Last administered on 05/22/19 08:56; Admin Dose 75 MG; Start 05/18/19 at 11:00 Norepinephrine 250 ml @ 1.875 mls/ hr TITRATE IV Last administered on 05/19/19 at 12:25; Admin Dose 3.75 MLS/HR; Start 05/18/19 at 16:00 IV Flush (NS 10 ml) 10 ml PRN PRN IV FLUSH LINE; Start 05/18/19 at 17:30 Propofol 100 ml @ 2.055 mls/ hr Q12H IV Last administered on 05/21/19 10:49; Admin Dose 12.33 MLS/HR; Start 05/19/19 at 11:30 Levofloxacin/ Dextrose 100 ml @ 100 mls/hr Q24H IVPB Last administered on 05/21/19 13:51; Admin Dose 100 MLS/HR; Start 05/19/19 at 13:00 Cefepime HCl 50 ml @ 100 mls/hr Q12 IVPB Last administered on 05/22/19 08:56; Admin Dose 100 MLS/HR; Start 05/19/19 at 13:00 Budesonide (Pulmicort (Neb)) 0.5 mg BID RESP THERAPY HHN Last administered on 05/22/19 08:02; Admin Dose 0.5 MG; Start 05/20/19 at 20:00 Lansoprazole (Prevacid) 30 mg DAILY@06 GTB ; Start 05/21/19 at 06:00 Midazolam HCl 50 ml @ 1 mls/hr TITRATE IV Last administered on 05/22/19 11:03; Admin Dose 7 MLS/HR; Start 05/21/19 at 15:30 Dextrose/Sodium Chloride 1,000 ml @ 100 mls/hr Q10H IV Last administered on 05/22/19 08:57; Admin Dose 100 MLS/HR; Start 05/21/19 at 14:30 Albuterol (Ventolin Hfa) 4 puff Q6H RESP THERAPY INH Last administered on 05/22/19 08:02; Admin Dose 4 PUFF; Start 05/21/19 at 20:00 Ipratropium [place] (Atrovent Hfa) 4 puff Q6H RESP THERAPY INH Last administered on 05/22/19 08:02; Admin Dose 4 PUFF; Start 05/21/19 at 20:00 Metoprolol Tartrate (Lopressor) 5 mg Q4 PRN IV SBP > 160 Last administered on 05/22/19 01:59; Admin Dose 5 MG; Start 05/22/19 at 02:00 Morphine Sulfate (morphine) 3 mg Q4H PRN IV SEVERE PAIN LEVEL 7-10 Last ad ministered on 05/22/19 01:49; Admin Dose 3 MG; Start 05/22/19 at 02:00 EDGARD CLARKE MD May 22, 2019 11:42
[2019-05-22] MEDS: LEVOFLOXACIN 500MG/D5W (PMX) 100 ML IVPB SCH (13:23)
--- NOTE | 2019-05-22 13:54 | PN ---
DATE: 05/22/2019 SUBJECTIVE: Patient is intubated, sedated, looks comfortable, no fevers overnight. WBC today 10, H and H 12 and 38, platelets 210, neutrophils 90.5, BUN 37, creatinine 0.72. DIAGNOSTICS: Chest x-ray yesterday revealed redemonstration of bibasilar atelectasis/infiltrate and likely small pleural effusions. INDWELLINGS: The endotracheal tube, NG tube, Hernández catheter, right upper extremity PICC line. ANTIMICROBIALS: The patient remains on cefepime and levofloxacin. He is also getting IV steroids. PHYSICAL EXAMINATION: GENERAL: This is a well-developed, well-nourished elderly man who is intubated and sedated, in no di stress. HEENT: Head atraumatic, normocephalic. NECK: Supple. CHEST: Rise symmetrical. Breath sounds diminished to bases. HEART: S1, S2. ABDOMEN: Soft, bowel sounds present. EXTREMITIES: Without cyanosis. ASSESSMENT: 1. Severe sepsis status post shock. 2. Acute hypoxemic respiratory failure. 3. Pneumonia, possibly aspiration. 4. Chronic obstructive pulmonary disease. 5. Encephalopathy. PLAN: The patient remains stable. Continue present care, antibiotics, vent management per pulmonary . Dictated By: [employer] for FROY HURT MD NI/NTS Conf#: [id number] DID#: [id number] CC: KRISTIN BASS MD;*EndCC*
--- NOTE | 2019-05-22 17:21 | CONS ---
Assessment/Plan Assessment/Plan Hospital Course (Demo Recall) Respiratory failure, status post intubation Shock/hypotension-improved Encephalopathy Preserved left ventricular ejection fraction COPD Acute kidney injury BP elevated Increase norvasc to bid Titrate ARB as needed Antibiotics as per primary team Vent management as per pulmonary Consultation Date/Type/Reason Admit Date/Time May 18, 2019 at 00:50 Initial Consult Date 05/18/19 Type of Consult Cardiology Requesting Provider: VIRGEN MCQUEEN Date/Time of Note DATE: 05/22/19 TIME: 17:20 24 HR Interval Summary Free Text/Dictation elev bp, failed weaning today Exam/Review of Systems Vital Signs Vitals Vital Signs Date Temp Pulse Resp B/P (MAP) Pulse Ox O2 O2 Flow FiO2 Time Delivery Rate 05/22/19 96 16:33 05/22/19 29 147/86 100 Mechanical 14:00 (106) Ventilator 05/22/19 98.6 12:00 05/22/19 30 08:00 05/19/19 15.0 11:00 Intake and Output 05/21/19 05/21/19 05/22/19 1515:00 23:00 07:00 IntakeIntake Total 1237.845 ml 1959 ml 1449 ml OutputOutput Total 475 ml 470 ml 460 ml BalanceBalance 762.845 ml 1489 ml 989 ml Exam Exam intubated, sedated Head: normocephalic ENMT: intubated Respiratory: other (course bs, no wheeze) Cardiovascular: regular rate and rhythm (s1s2) Gastrointestinal: soft, non-tender, bowel sounds Extremities: edema (no) Labs Result Diagram: 05/22/19 0400 05/22/19 0415 Results 24hrs Laboratory Tests Test 05/22/19 04:00 05/22/19 04:15 05/22/19 05:37 White Blood Count 10.0 # Red Blood Count 3.91 L Hemoglobin 12.0 L Hematocrit 38.0 L Mean Corpuscular Volume 97.2 Mean Corpuscular Hemoglobin 30.7 Mean Corpuscular 31.6 L Hemoglobin Concent Red Cell Distribution Width 15.0 H Platelet Count 210 Mean Platelet Volume 10.4 Immature Granulocytes % 0.700 H Neutrophils % 90.5 H Lymphocytes % 1.7 L Monocytes % 7.0 Eosinophils % 0.0 Basophils % 0.1 Nucleated Red Blood Cells % 0.0 Immature Granulocytes # 0.070 H Neutrophils # 9.1 H Lymphocytes # 0.2 L Monocytes # 0.7 Eosinophils # 0.0 Basophils # 0.0 Nucleated Red Blood Cells # 0.0 Sodium Level 141 Potassium Level 4.5 Chloride Level 113 H Carbon Dioxide Level 23 Anion Gap 5 Blood Urea Nitrogen 37 H Creatinine 0.72 Est Glomerular Filtrat Rate mL/min Glucose Level 320 H Calcium Level 9.2 Phosphorus Level 2.5 Magnesium Level 2.5 Lab Scanned Report REFERENCE LAB Medications Medications Current Medications IV Flush (NS 3 ml) 3 ml PER PROTOCOL IV ; Start 05/18/19 at 02:00 Ondansetron HCl (Zofran Inj) 4 mg Q6H PRN IV NAUSEA/VOMITING; Start 05/18/19 at 02:00 Acetaminophen (Tylenol Tab) 650 mg Q6H PRN PO .PAIN 1-3 OR TEMP; Start 05/18/19 at 02:00 Atorvastatin Calcium (Lipitor) 20 mg HS PO Last administered on 05/21/19at 21:32; Admin Dose 20 MG; Start 05/18/19 at 21:00 Albuterol/ Ipratropium (Duoneb) 3 ml Q2H RESP THERAPY PRN HHN wheezing; Start 05/18/19 at 09:30 Methylprednisolone Sodium Succinate (Solu-Medrol) 40 mg Q8 IV Last administered on 05/22/19 13:23; Admin Dose 40 MG; Start 05/18/19 at 14:00 Fentanyl 100 ml @ 2.5 mls/hr PER PROTOCOL IV Last administered on 05/19/19 06:37; Admin Dose 5 MLS/HR; Start 05/18/19 at 11:00 Hydralazine HCl (Apresoline) 10 mg Q4H PRN IV sbp >160 Last administered on 05/22/19 09:04; Admin Dose 10 MG; Start 05/18/19 at 11:00 Clopidogrel Bisulfate (plaVIX) 75 mg DAILY GTB Last administered on 05/22/19 08:56; Admin Dose 75 MG; Start 05/18/19 at 11:00 Norepinephrine 250 ml @ 1.875 mls/ hr TITRATE IV Last administered on 05/19/19 12:25; Admin Dose 3.75 MLS/HR; Start 05/18/19 at 16:00 IV Flush (NS 10 ml) 10 ml PRN PRN IV FLUSH LINE; Start 05/18/19 at 17:30 Propofol 100 ml @ 2.055 mls/ hr Q12H IV Last administered on 05/21/19 10:49; Admin Dose 12.33 MLS/HR; Start 05/19/19 at 11:30 Levofloxacin/ Dextrose 100 ml @ 100 mls/hr Q24H IVPB Last administered on 05/22/19 13:23; Admin Dose 100 MLS/HR; Start 05/19/19 at 13:00 Cefepime HCl 50 ml @ 100 mls/hr Q12 IVPB Last administered on 05/22/19 08:56; Admin Dose 100 MLS/HR; Start 05/19/19 at 13:00 Budesonide (Pulmicort (Neb)) 0.5 mg BID RESP THERAPY HHN Last administered on 05/22/19 08:02; Admin Dose 0.5 MG; Start 05/20/19 at 20:00 Lansoprazole (Prevacid) 30 mg DAILY@06 GTB ; Start 05/21/19 at 06:00 Midazolam HCl 50 ml @ 1 mls/hr TITRATE IV Last administered on 05/22/19 11:03; Admin Dose 7 MLS/HR; Start 05/21/19 at 15:30 Albuterol (Ventolin Hfa) 4 puff Q6H RESP THERAPY INH Last administered on 05/22/19 13:38; Admin Dose 4 PUFF; Start 05/21/19 at 20:00 Ipratropium [place] (Atrovent Hfa) 4 puff Q6H RESP THERAPY INH Last administered on 05/22/19 13:39; Admin Dose 4 PUFF; Start 05/21/19 at 20:00 Metoprolol Tartrate (Lopressor) 5 mg Q4 PRN IV SBP > 160 Last administered on 05/22/19 01:59; Admin Dose 5 MG; Start 05/22/19 at 02:00 Morphine Sulfate (morphine) 3 mg Q4H PRN IV SEVERE PAIN LEVEL 7-10 Last admini stered on 05/22/19 01:49; Admin Dose 3 MG; Start 05/22/19 at 02:00 Amlodipine Besylate (Norvasc) 5 mg DAILY PO ; Start 05/23/19 at 09:00 Losartan Potassium (Cozaar) 25 mg BID PO ; Start 05/22/19 at 21:00 Bao Garza DO May 22, 2019 17:21
[2019-05-22] MEDS: LOSARTAN 25 MG TAB PO SCH (20:46)
[2019-05-22] MEDS: AMLODIPINE 5 MG TAB PO SCH (20:46)
[2019-05-22] MEDS: ATORVASTATIN 20 MG TAB PO SCH (20:46)
[2019-05-23] VITALS (39 sets, daily range): BP systolic 109–173; BP diastolic 55–87; PULSE 70–105; RESP 17–29
[2019-05-23] MEDS: ALBUTEROL HFA 8 GM INHALER INH SCH ×4 (02:16→19:17)
[2019-05-23] MEDS: IPRATROPIUM (HFA) 12.9 GM INHALER INH SCH ×4 (02:16→19:17)
[2019-05-23] MEDS: MIDAZOLAM (DRIP) 50 mg/50 mL 50 ML IV SCH (03:35)
[2019-05-23] MEDS: LANSOPRAZOLE 30 MG CAP GTB SCH (06:00)
[2019-05-23] MEDS: METHYLPREDNISOLONE 40 MG INJ IV SCH ×3 (06:12→20:34)
[2019-05-23] MEDS: CLOPIDOGREL 75 MG TAB GTB SCH (08:28)
[2019-05-23] MEDS: AMLODIPINE 5 MG TAB PO SCH ×2 (08:28→20:37)
[2019-05-23] MEDS: CEFEPIME 1GM/50 ML (PMX) 50 ML IVPB SCH ×2 (08:29→20:37)
[2019-05-23] MEDS: PROPOFOL 100 ML IV SCH ×3 (08:29→17:45)
[2019-05-23] MEDS: LOSARTAN 25 MG TAB PO SCH ×2 (08:29→20:37)
[2019-05-23] MEDS: BUDESONIDE (NEB) 0.5MG/2ML AMP HHN SCH ×2 (08:45→19:17)
[2019-05-23] MEDS ORDERED: AMLODIPINE 5 MG TAB PO SCH (09:00)
--- NOTE | 2019-05-23 09:00 | CONS ---
Assessment/Plan Assessment/Plan Assessment/Plan (Daily) 1. acute hyperrkalemia - resolved 2. Acute kidney injury due to ATN from septic shock + prerenal azotemia - improved 3. acute hypercapnic respiratory failure 2/2 Septic shock and PNA,, intubated on ventilator 4. H/o HTN 5. h/o HL 6. Septic shock due to bilateral PNA 7. Hypotension and Bradycardia - now stable Plan: BUN/Cr 36/0.68, other electrolytes stable ,IVFstopped yesterday -IV solu-medrol 40mg Q 8 hr IV abx Cefepime and Levaquin , Renally dose all abx and monitor electorlytes, ID following amlodipine 5 mg PO BID and losartan 25 mg PO BID- meanwhile use IV hydralazine prn will follow up Consultation Date/Type/Reason Admit Date/Time May 18, 2019 at 00:50 Initial Consult Date 05/18/19 Type of Consult NEPHROLOGY Requesting Provider: VIRGEN MCQUEEN Date/Time of Note DATE: 05/23/19 TIME: 09:00 24 HR Interval Summary Free Text/Dictation remains intubated, making adequate urine, BP stable Exam/Review of Systems Exam Vitals Vital Signs Date Temp Pulse Resp B/P (MAP) Pulse Ox O2 O2 Flow FiO2 Time Delivery Rate 05/23/19 76 24 131/72 99 06:00 (91) 05/23/19 30 05:30 05/23/19 98.7 Mechanical 04:00 Ventilator 05/19/19 15.0 11:00 Intake and Output 05/22/19 05/22/19 05/23/19 1515:00 23:00 07:00 IntakeIntake Total 488.5 ml 506 ml 399 ml OutputOutput Total 525 ml 370 ml 315 ml BalanceBalance -36.5 ml 136 ml 84 ml Exam Constitutional: non-verbal ENMT: intubated Neck: supple, non-tender Respiratory: congested cough, crackles/rales, diminished breath sounds Cardiovascular: regular rate and rhythm Gastrointestinal: soft, non-tender Musculoskeletal: muscle weakness, swelling (1+ edema ) Neurological: other (intubated sedated on ventilator ) Results Result Diagram: 05/23/19 0438 05/23/19 0445 Results 24hrs Laboratory Tests Test 05/23/19 04:38 05/23/19 04:45 White Blood Count 11.2 H Red Blood Count 3.94 L Hemoglobin 12.2 L Hematocrit 38.4 L Mean Corpuscular Volume 97.5 Mean Corpuscular Hemoglobin 31.0 Mean Corpuscular Hemoglobin Concent 31.8 L Red Cell Distribution Width 15.1 H Platelet Count 218 Mean Platelet Volume 10.7 H Immature Granulocytes % 1.000 H Neutrophils % 89.1 H Lymphocytes % 2.8 L Monocytes % 6.9 Eosinophils % 0.0 Basophils % 0.2 Nucleated Red Blood Cells % 0.0 Immature Granulocytes # 0.110 H Neutrophils # 10.0 H Lymphocytes # 0.3 L Monocytes # 0.8 Eosinophils # 0.0 Basophils # 0.0 Nucleated Red Blood Cells # 0.0 Sodium Level 144 Potassium Level 4.7 Chloride Level 113 H Carbon Dioxide Level 24 Anion Gap 7 Blood Urea Nitrogen 36 H Creatinine 0.68 Est Glomerular Filtrat Rate mL/min Glucose Level 244 H Calcium Level 9.4 Phosphorus Level 2.7 Magnesium Level 2.5 Medications Medication Current Medications IV Flush (NS 3 ml) 3 ml PER PROTOCOL IV ; Start 05/18/19 at 02:00 Ondansetron HCl (Zofran Inj) 4 mg Q6H PRN IV NAUSEA/VOMITING; Start 05/18/19 at 02:00 Acetaminophen (Tylenol Tab) 650 mg Q6H PRN PO .PAIN 1-3 OR TEMP; Start 05/18/19 at 02:00 Atorvastatin Calcium (Lipitor) 20 mg HS PO Last administered on 05/22/19at 20:46; Admin Dose 20 MG; Start 05/18/19 at 21:00 Albuterol/ Ipratropium (Duoneb) 3 ml Q2H RESP THERAPY PRN HHN wheezing; Start 05/18/19 at 09:30 Methylprednisolone Sodium Succinate (Solu-Medrol) 40 mg Q8 IV Last administered on 05/23/19at 06:12; Admin Dose 40 MG; Start 05/18/19 at 14:00 Fentanyl 100 ml @ 2.5 mls/hr PER PROTOCOL IV Last administered on 05/19/19at 06:37; Admin Dose 5 MLS/HR; Start 05/18/19 at 11:00 Hydralazine HCl (Apresoline) 10 mg Q4H PRN IV sbp >160 Last administered on 05/22/19at 09:04; Admin Dose 10 MG; Start 05/18/19 at 11:00 Clopidogrel Bisulfate (plaVIX) 75 mg DAILY GTB Last administered on 05/23/19 08:28; Admin Dose 75 MG; Start 05/18/19 at 11:00 Norepinephrine 250 ml @ 1.875 mls/ hr TITRATE IV Last administered on 05/19/19 12:25; Admin Dose 3.75 MLS/HR; Start 05/18/19 at 16:00 IV Flush (NS 10 ml) 10 ml PRN PRN IV FLUSH LINE; Start 05/18/19 at 17:30 Propofol 100 ml @ 2.055 mls/ hr Q12H IV Last administered on 05/21/19 10:49; Admin Dose 12.33 MLS/HR; Start 05/19/19 at 11:30 Levofloxacin/ Dextrose 100 ml @ 100 mls/hr Q24H IVPB Last administered on 05/22/19 13:23; Admin Dose 100 MLS/HR; Start 05/19/19 at 13:00 Cefepime HCl 50 ml @ 100 mls/hr Q12 IVPB Last administered on 05/23/19 08:29; Admin Dose 100 MLS/HR; Start 05/19/19 at 13:00 Budesonide (Pulmicort (Neb)) 0.5 mg BID RESP THERAPY HHN Last administered on 05/23/19 08:45; Admin Dose 0.5 MG; Start 05/20/19 at 20:00 Lansoprazole (Prevacid) 30 mg DAILY@06 GTB ; Start 05/21/19 at 06:00 Midazolam HCl 50 ml @ 1 mls/hr TITRATE IV Last administered on 05/23/19 03:35; Admin Dose 7 MLS/HR; Start 05/21/19 at 15:30 Albuterol (Ventolin Hfa) 4 puff Q6H RESP THERAPY INH Last administered on 05/23/19 08:44; Admin Dose 4 PUFF; Start 05/21/19 at 20:00 Ipratropium [place] (Atrovent Hfa) 4 puff Q6H RESP THERAPY INH Last administered on 05/23/19 08:45; Admin Dose 4 PUFF; Start 05/21/19 at 20:00 Metoprolol Tartrate (Lopressor) 5 mg Q4 PRN IV SBP > 160 Last administered on 05/22/19 01:59; Admin Dose 5 MG; Start 05/22/19 at 02:00 Morphine Sulfate (morphine) 3 mg Q4H PRN IV SEVERE PAIN LEVEL 7-10 Last administered on 05/22/19 01:49; Admin Dose 3 MG; Start 05/22/19 at 02:00 Losartan Potassium (Cozaar) 25 mg BID PO Last administered on 05/23/19 08:29; Admin Dose 25 MG; Start 05/22/19 at 21:00 Amlodipine Besylate (Norvasc) 5 mg BID PO Last administered on 05/23/19 08:28; Admin Dose 5 MG; Start 05/22/19 at 21:00 EDGARD CLARKE MD May 23, 2019 09:00
--- NOTE | 2019-05-23 09:42 | CONS ---
Assessment/Plan Assessment/Plan Assessment/Plan (Daily) Ventilator setting; AC of 24, tidal volume 500, PEEP of 5, 30% FiO2. Chest x-ray showing emphysematous changes without any acute infiltrates. Patient is currently on Versed 5 mg/h. Patient also maintained on orogastric tube feeding. Assessment and recommendations; 1. Patient admitted with respiratory failure due to COPD exacerbation and acute bronchitis, required reintubation after self extubation episode. Has failed CPAP trial yesterday. 2. History of hypertension. Continue current supportive care. Patient to be given another sedation vacation in 24 hours to assess for possible weaning from ventilator. 35 minutes of critical care time was spent evaluating patient. Consultation Date/Type/Reason Admit Date/Time May 18, 2019 at 00:50 Initial Consult Date 05/18/19 Type of Consult Pulmonary/critical care Patient is an 84-year-old gentleman who was sent [facility] with altered mental status and severe hypoxemia. Upon evaluation patient was found to be in severe hypercapnic respiratory failure with pneumonia. Patient was intubated. By the time I saw him in ER, patient is orally intubated and is currently under paralytic and sedative effect. Patient however did not appear to be in any distress. History has been obtained from medical records. Past medical history; 1. Apparently advanced COPD. 2. Dementia. But the patient according to medical records is ambulatory and is usually awake and alert. Medications; reviewed. Allergies; none. Family history; not available. Social history; patient does have history of heavy smoking. Occupational history; not available. Review of system; not able to be obtained. General exam; elderly male, orally intubated, currently sedated. No distress noted. Requesting Provider: VIRGEN MCQUEEN Date/Time of Note DATE: 05/23/19 TIME: 09:39 24 HR Interval Summary Free Text/Dictation Patient condition is critical. Again failed a weaning trial yesterday. Patient however has remained hemodynamically stable. General exam; elderly male, orally intubated, sedated, currently in no distress. Exam/Review of Systems Exam Vitals Vital Signs Date Temp Pulse Resp B/P (MAP) Pulse Ox O2 O2 Flow FiO2 Time Delivery Rate 05/23/19 76 24 131/72 99 06:00 (91) 05/23/19 30 05:30 05/23/19 98.7 Mechanical 04:00 Ventilator 05/19/19 15.0 11:00 Intake and Output 05/22/19 05/22/19 05/23/19 1515:00 23:00 07:00 IntakeIntake Total 488.5 ml 506 ml 399 ml OutputOutput Total 525 ml 370 ml 315 ml BalanceBalance -36.5 ml 136 ml 84 ml Exam HEENT exam; supple neck, no JVD. No lymphadenopathy. Midline trachea. No thyromegaly. Orally intubated. Patient is edentulous. Pupils are small bilaterally. No neck masses. Chest exam; diminished breath sounds throughout. No added sounds. S1-S2 audible, no murmurs. Regular rhythm. Abdomen exam; soft, no organomegaly. Bowel sounds audible. Extremity exam; no peripheral edema or clubbing. 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 Results Result Diagram: 05/23/19 0438 05/23/19 0445 Results 24hrs Laboratory Tests Test 05/23/19 04:38 05/23/19 04:45 White Blood Count 11.2 H Red Blood Count 3.94 L Hemoglobin 12.2 L Hematocrit 38.4 L Mean Corpuscular Volume 97.5 Mean Corpuscular Hemoglobin 31.0 Mean Corpuscular Hemoglobin Concent 31.8 L Red Cell Distribution Width 15.1 H Platelet Count 218 Mean Platelet Volume 10.7 H Immature Granulocytes % 1.000 H Neutrophils % 89.1 H Lymphocytes % 2.8 L Monocytes % 6.9 Eosinophils % 0.0 Basophils % 0.2 Nucleated Red Blood Cells % 0.0 Immature Granulocytes # 0.110 H Neutrophils # 10.0 H Lymphocytes # 0.3 L Monocytes # 0.8 Eosinophils # 0.0 Basophils # 0.0 Nucleated Red Blood Cells # 0.0 Sodium Level 144 Potassium Level 4.7 Chloride Level 113 H Carbon Dioxide Level 24 Anion Gap 7 Blood Urea Nitrogen 36 H Creatinine 0.68 Est Glomerular Filtrat Rate mL/min Glucose Level 244 H Calcium Level 9.4 Phosphorus Level 2.7 Magnesium Level 2.5 Medications Medication Current Medications IV Flush (NS 3 ml) 3 ml PER PROTOCOL IV ; Start 05/18/19 at 02:00 Ondansetron HCl (Zofran Inj) 4 mg Q6H PRN IV NAUSEA/VOMITING; Start 05/18/19 at 02:00 Acetaminophen (Tylenol Tab) 650 mg Q6H PRN PO .PAIN 1-3 OR TEMP; Start 05/18/19 at 02:00 Atorvastatin Calcium (Lipitor) 20 mg HS PO Last administered on 05/22/19 20:46; Admin Dose 20 MG; Start 05/18/19 at 21:00 Albuterol/ Ipratropium (Duoneb) 3 ml Q2H RESP THERAPY PRN HHN wheezing; Start 05/18/19 at 09:30 Methylprednisolone Sodium Succinate (Solu-Medrol) 40 mg Q8 IV Last administered on 05/23/19 06:12; Admin Dose 40 MG; Start 05/18/19 at 14:00 Fentanyl 100 ml @ 2.5 mls/hr PER PROTOCOL IV Last administered on 05/19/19 06:37; Admin Dose 5 MLS/HR; Start 05/18/19 at 11:00 Hydralazine HCl (Apresoline) 10 mg Q4H PRN IV sbp >160 Last administered on 05/22/19 09:04; Admin Dose 10 MG; Start 05/18/19 at 11:00 Clopidogrel Bisulfate (plaVIX) 75 mg DAILY GTB Last administered on 05/23/19 08:28; Admin Dose 75 MG; Start 05/18/19 at 11:00 Norepinephrine 250 ml @ 1.875 mls/ hr TITRATE IV Last administered on 05/19/19 12:25; Admin Dose 3.75 MLS/HR; Start 05/18/19 at 16:00 IV Flush (NS 10 ml) 10 ml PRN PRN IV FLUSH LINE; Start 05/18/19 at 17:30 Propofol 100 ml @ 2.055 mls/ hr Q12H IV Last administered on 05/21/19 10:49; Admin Dose 12.33 MLS/HR; Start 05/19/19 at 11:30 Levofloxacin/ Dextrose 100 ml @ 100 mls/hr Q24H IVPB Last administered on 05/22/19 13:23; Admin Dose 100 MLS/HR; Start 05/19/19 at 13:00 Cefepime HCl 50 ml @ 100 mls/hr Q12 IVPB Last administered on 05/23/19 08:29; Admin Dose 100 MLS/HR; Start 05/19/19 at 13:00 Budesonide (Pulmicort (Neb)) 0.5 mg BID RESP THERAPY HHN Last administered on 05/23/19 08:45; Admin Dose 0.5 MG; Start 05/20/19 at 20:00 Lansoprazole (Prevacid) 30 mg DAILY@06 GTB ; Start 05/21/19 at 06:00 Midazolam HCl 50 ml @ 1 mls/hr TITRATE IV Last administered on 05/23/19 03:35; Admin Dose 7 MLS/HR; Start 05/21/19 at 15:30 Albuterol (Ventolin Hfa) 4 puff Q6H RESP THERAPY INH Last administered on 05/23/19 08:44; Admin Dose 4 PUFF; Start 05/21/19 at 20:00 Ipratropium [place] (Atrovent Hfa) 4 puff Q6H RESP THERAPY INH Last administered on 05/23/19 08:45; Admin Dose 4 PUFF; Start 05/21/19 at 20:00 Metoprolol Tartrate (Lopressor) 5 mg Q4 PRN IV SBP > 160 Last administered on 01:59; Admin Dose 5 MG; Start 05/22/19 at 02:00 Morphine Sulfate (morphine) 3 mg Q4H PRN IV SEVERE PAIN LEVEL 7-10 Last administered on 05/22/19 01:49; Admin Dose 3 MG; Start 05/22/19 at 02:00 Losartan Potassium (Cozaar) 25 mg BID PO Last administered on 05/23/19 08:29; Admin Dose 25 MG; Start 05/22/19 at 21:00 Amlodipine Besylate (Norvasc) 5 mg BID PO Last administered on 05/23/19 08:28; Admin Dose 5 MG; Start 05/22/19 at 21:00 JUAN F MATA May 23, 2019 09:42
[2019-05-23] MEDS: LEVOFLOXACIN 500MG/D5W (PMX) 100 ML IVPB SCH (12:40)
--- NOTE | 2019-05-23 13:04 | PN ---
DATE: 05/23/2019 SUBJECTIVE: No acute changes per report. The patient remains intubated and sedated. No fevers over night. LABORATORY DATA: WBC 11.2, platelets 218, neutrophils 89.1, BUN 36, creatinine 0.68. DIAGNOSTICS: Chest x-ray this morning revealed patchy bibasilar infiltrate/multifocal pneumonia mode rately improved. Please see full report in the chart. ANTIMICROBIALS: The patient is on levofloxacin and cefepime. INDWELLINGS: Endotracheal tube, NG tube, Hernández, PICC line. PHYSICAL EXAMINATION: GENERAL: This is well-developed, well-nourished elderly man who is intubated and sedated, in no dist ress. HEENT: Head atraumatic, normocephalic. NECK: Supple. CHEST: Rise symmetrical. Breath sounds diminished to bases. HEART: S1, S2. ABDOMEN: Soft, bowel sounds present. ASSESSMENT: 1. Acute hypoxemic respiratory failure. 2. Healthcare-associated pneumonia. 3. Chronic obstructive pulmonary disease exacerbation. 4. Status post septic shock. PLAN: The patient remains stable. Continue present care, antibiotics, weaning trials per pulmonary. Dictated By: KURT SO BUILDING ESTIMATOR for FROY HURT MD NI/NTS Conf#: [id number] DID#: [id number] CC: KRISTIN BASS MD;*EndCC*
[2019-05-23] MEDS ORDERED: INSULIN ASP PROT/ASPART (70/30) PEN SC SCH (15:00)
--- NOTE | 2019-05-23 15:35 | PN ---
Date/Time of Note Date/Time of Note DATE: 05/23/19 TIME: 15:27 Assessment/Plan VTE Prophylaxis Risk score (from Nsg)>0 risk: 11 SCD applied (from Nsg): Yes Pharmacological prophylaxis: other Lines/Catheters IV Catheter Type (from Nrsg): PICC Line Central line still needed: Yes Urinary Cath still in place: Yes Reason Cath still needed: terminal illness/intractable pain Assessment/Plan Assessment/Plan 1. Acute hypoxic respiratory failure - failed CPAP trial yesterday and will plan for sedation vacation and CPAP trial in am - Pulm on board and appreciate recommendations. - repeat CXR results noted with moderate improvement - CT chest results noted with emphysema and bilateral effusions with atelectasis vs infiltrate 2. COPD exacerbation - currently on steroids and neb tx. will wean steroids 3. Acute encephalopathy - CT head noted, no acute issues - Neurology consultation appreciated 4. Acute kidney injury- resolved - Nephrology consultation appreciated 5. Hypertension - continue home medications. BP remains stable 6. Mild cognitive impairment - Neurology on board - Baseline is alert and oriented x3, with some memory loss 7. Mild carotid stenosis, right ICA - Continue on Plavix and statin 8. Hyperglycemia - A1c noted - most likely steroid induced - will order novolog 70/30 with solumedrol and ISS 9. Disposition - Continue management in ICU while requiring mechanical ventilation - [place] evaluation placed >30 minutes of critical care time spend with patient Result Diagram: 05/23/19 0438 05/23/19 0445 Results 24hrs Laboratory Tests Test 05/23/19 04:38 05/23/19 04:45 05/23/19 15:19 White Blood Count 11.2 H Red Blood Count 3.94 L Hemoglobin 12.2 L Hematocrit 38.4 L Mean Corpuscular Volume 97.5 Mean Corpuscular Hemoglobin 31.0 Mean Corpuscular Hemoglobin Concent 31.8 L Red Cell Distribution Width 15.1 H Platelet Count 218 Mean Platelet Volume 10.7 H Immature Granulocytes % 1.000 H Neutrophils % 89.1 H Lymphocytes % 2.8 L Monocytes % 6.9 Eosinophils % 0.0 Basophils % 0.2 Nucleated Red Blood Cells % 0.0 Immature Granulocytes # 0.110 H Neutrophils # 10.0 H Lymphocytes # 0.3 L Monocytes # 0.8 Eosinophils # 0.0 Basophils # 0.0 Nucleated Red Blood Cells # 0.0 Sodium Level 144 Potassium Level 4.7 Chloride Level 113 H Carbon Dioxide Level 24 Anion Gap 7 Blood Urea Nitrogen 36 H Creatinine 0.68 Est Glomerular Filtrat Rate mL/min Glucose Level 244 H Calcium Level 9.4 Phosphorus Level 2.7 Magnesium Level 2.5 Bedside Glucose 259 H Subjective 24 Hr Interval Summary Free Text/Dictation Patient remains intubated and sedated. No acute distress noted. Exam/Review of Systems Exam Vitals Vital Signs Date Temp Pulse Resp B/P (MAP) Pulse Ox O2 O2 Flow FiO2 Time Delivery Rate 05/23/19 89 12:00 05/23/19 99 30 11:40 05/23/19 139/78 Mechanical 10:00 (98) Ventilator 05/23/19 98.8 08:00 05/19/19 15.0 11:00 Intake and Output 05/22/19 05/22/19 05/23/19 1515:00 23:00 07:00 IntakeIntake Total 488.5 ml 506 ml 399 ml OutputOutput Total 525 ml 370 ml 315 ml BalanceBalance -36.5 ml 136 ml 84 ml Exam General: Patient is laying in bed intubated, no acute distress Eyes: EOMI, pupils reactive to light Neck: Supple, nontender, midline Respiratory: Coarse to auscultation bilaterally Cardiovascular: S1, S2, regular rate and rhythm, no obvious murmurs Gastrointestinal: soft, non-tender to palpation, bowel sounds heard. Skin: No new skin lesions Results Results 24hrs Laboratory Tests Test 05/23/19 04:38 05/23/19 04:45 05/23/19 15:19 White Blood Count 11.2 H Red Blood Count 3.94 L Hemoglobin 12.2 L Hematocrit 38.4 L Mean Corpuscular Volume 97.5 Mean Corpuscular Hemoglobin 31.0 Mean Corpuscular Hemoglobin Concent 31.8 L Red Cell Distribution Width 15.1 H Platelet Count 218 Mean Platelet Volume 10.7 H Immature Granulocytes % 1.000 H Neutrophils % 89.1 H Lymphocytes % 2.8 L Monocytes % 6.9 Eosinophils % 0.0 Basophils % 0.2 Nucleated Red Blood Cells % 0.0 Immature Granulocytes # 0.110 H Neutrophils # 10.0 H Lymphocytes # 0.3 L Monocytes # 0.8 Eosinophils # 0.0 Basophils # 0.0 Nucleated Red Blood Cells # 0.0 Sodium Level 144 Potassium Level 4.7 Chloride Level 113 H Carbon Dioxide Level 24 Anion Gap 7 Blood Urea Nitrogen 36 H Creatinine 0.68 Est Glomerular Filtrat Rate mL/min Glucose Level 244 H Calcium Level 9.4 Phosphorus Level 2.7 Magnesium Level 2.5 Bedside Glucose 259 H Medications Medication Current Medications IV Flush (NS 3 ml) 3 ml PER PROTOCOL IV ; Start 05/18/19 at 02:00 Ondansetron HCl (Zofran Inj) 4 mg Q6H PRN IV NAUSEA/VOMITING; Start 05/18/19 at 02:00 Acetaminophen (Tylenol Tab) 650 mg Q6H PRN PO .PAIN 1-3 OR TEMP; Start 05/18/19 at 02:00 Atorvastatin Calcium (Lipitor) 20 mg HS PO Last administered on 05/22/19 20:46; Admin Dose 20 MG; Start 05/18/19 at 21:00 Albuterol/ Ipratropium (Duoneb) 3 ml Q2H RESP THERAPY PRN HHN wheezing; Start 05/18/19 at 09:30 Methylprednisolone Sodium Succinate (Solu-Medrol) 40 mg Q8 IV Last administered on 05/23/19 15:20; Admin Dose 40 MG; Start 05/18/19 at 14:00 Fentanyl 100 ml @ 2.5 mls/hr PER PROTOCOL IV Last administered on 05/19/19 06:37; Admin Dose 5 MLS/HR; Start 05/18/19 at 11:00 Hydralazine HCl (Apresoline) 10 mg Q4H PRN IV sbp >160 Last administered on 05/22/19 09:04; Admin Dose 10 MG; Start 05/18/19 at 11:00 Clopidogrel Bisulfate (plaVIX) 75 mg DAILY GTB Last administered on 05/23/19 08:28; Admin Dose 75 MG; Start 05/18/19 at 11:00 Norepinephrine 250 ml @ 1.875 mls/ hr TITRATE IV Last administered on 12:25; Admin Dose 3.75 MLS/HR; Start 05/18/19 at 16:00 IV Flush (NS 10 ml) 10 ml PRN PRN IV FLUSH LINE; Start 05/18/19 at 17:30 Propofol 100 ml @ 2.055 mls/ hr Q12H IV Last administered on 05/23/19 10:49; Admin Dose 2.055 MLS/HR; Start 05/19/19 at 11:30 Levofloxacin/ Dextrose 100 ml @ 100 mls/hr Q24H IVPB Last administered on 05/23/19 12:40; Admin Dose 100 MLS/HR; Start 05/19/19 at 13:00 Cefepime HCl 50 ml @ 100 mls/hr Q12 IVPB Last administered on 05/23/19 08:29; Admin Dose 100 MLS/HR; Start 05/19/19 at 13:00 Budesonide (Pulmicort (Neb)) 0.5 mg BID RESP THERAPY HHN Last administered on 05/23/19 08:45; Admin Dose 0.5 MG; Start 05/20/19 at 20:00 Lansoprazole (Prevacid) 30 mg DAILY@06 GTB ; Start 05/21/19 at 06:00 Midazolam HCl 50 ml @ 1 mls/hr TITRATE IV Last administered on 05/23/19 03:35; Admin Dose 7 MLS/HR; Start 05/21/19 at 15:30 Albuterol (Ventolin Hfa) 4 puff Q6H RESP THERAPY INH Last administered on 05/23/19 14:34; Admin Dose 4 PUFF; Start 05/21/19 at 20:00 Ipratropium [place] (Atrovent Hfa) 4 puff Q6H RESP THERAPY INH Last administered on 05/23/19 14:34; Admin Dose 4 PUFF; Start 05/21/19 at 20:00 Metoprolol Tartrate (Lopressor) 5 mg Q4 PRN IV SBP > 160 Last administered on 05/22/19 01:59; Admin Dose 5 MG; Start 05/22/19 at 02:00 Morphine Sulfate (morphine) 3 mg Q4H PRN IV SEVERE PAIN LEVEL 7-10 Last administered on 05/22/19 01:49; Admin Dose 3 MG; Start 05/22/19 at 02:00 Losartan Potassium (Cozaar) 25 mg BID PO Last administered on 05/23/19 08:29; Admin Dose 25 MG; Start 05/22/19 at 21:00 Amlodipine Besylate (Norvasc) 5 mg BID PO Last administered on 05/23/19 08:28; Admin Dose 5 MG; Start 05/22/19 at 21:00 Insulin Aspart Prota 70%/Aspart 30% (Novolog Mix (70/ 30) Flexpen) 10 unit Q8 SC Last administered on 05/23/19at 15:21; Admin Dose 10 UNIT; Start 05/23/19 at 15:00 SOFIA AYOUB MD May 23, 2019 15:35
[2019-05-23] MEDS ORDERED: GLUCOSE GEL 15 GRAM TUBE PO PRN ×2 (16:00)
[2019-05-23] MEDS ORDERED: GLUCAGON 1 MG INJ IM PRN (16:00)
[2019-05-23] MEDS ORDERED: GLUCOSE GEL 15 GRAM TUBE BUCCAL PRN (16:00)
[2019-05-23] MEDS ORDERED: DEXTROSE 50% 50 ML SYRINGE IV PRN ×2 (16:00)
[2019-05-23] MEDS: INSULIN ASPART [NOVOLOG] 3 ML PEN SC SCH ×2 (17:49→20:36)
--- NOTE | 2019-05-23 18:57 | CONS ---
Assessment/Plan Assessment/Plan Hospital Course (Demo Recall) Respiratory failure, status post intubation Hypertension Encephalopathy Preserved left ventricular ejection fraction COPD Acute kidney injury BP trend improved Titrate ARB as needed Antibiotics as per primary team Vent management as per pulmonary Consultation Date/Type/Reason Admit Date/Time May 18, 2019 at 00:50 Initial Consult Date 05/18/19 Type of Consult Cardiology Requesting Provider: VIRGEN MCQUEEN Date/Time of Note DATE: 05/23/19 TIME: 18:56 24 HR Interval Summary Free Text/Dictation Seen and examined Exam/Review of Systems Vital Signs Vitals Vital Signs Date Temp Pulse Resp B/P (MAP) Pulse Ox O2 O2 Flow FiO2 Time Delivery Rate 05/23/19 90 18 138/68 98 Mechanical 18:00 (91) Ventilator 05/23/19 30 17:40 05/23/19 98.7 16:00 05/19/19 15.0 11:00 Intake and Output 05/22/19 05/22/19 05/23/19 1515:00 23:00 07:00 IntakeIntake Total 488.5 ml 506 ml 506 ml OutputOutput Total 525 ml 370 ml 315 ml BalanceBalance -36.5 ml 136 ml 191 ml Exam Exam Intubated and sedated, no apparent distress Head: normocephalic ENMT: intubated Respiratory: other (Coarse breath sounds bilaterally, no wheezing) Cardiovascular: regular rate and rhythm (S1-S2 heard) Gastrointestinal: soft, non-tender, bowel sounds Extremities: other (No significant edema) Labs Result Diagram: 05/23/19 0438 05/23/19 0445 Results 24hrs Laboratory Tests Test 05/23/19 04:38 05/23/19 04:45 05/23/19 15:19 05/23/19 17:43 White Blood Count 11.2 H Red Blood Count 3.94 L Hemoglobin 12.2 L Hematocrit 38.4 L Mean Corpuscular 97.5 Volume Mean Corpuscular 31.0 Hemoglobin Mean Corpuscular 31.8 L Hemoglobin Concent Red Cell 15.1 H Distribution Width Platelet Count 218 Mean Platelet Volume 10.7 H Immature 1.000 H Granulocytes % Neutrophils % 89.1 H Lymphocytes % 2.8 L Monocytes % 6.9 Eosinophils % 0.0 Basophils % 0.2 Nucleated Red Blood 0.0 Cells % Immature 0.110 H Granulocytes # Neutrophils # 10.0 H Lymphocytes # 0.3 L Monocytes # 0.8 Eosinophils # 0.0 Basophils # 0.0 Nucleated Red Blood 0.0 Cells # Sodium Level 144 Potassium Level 4.7 Chloride Level 113 H Carbon Dioxide Level 24 Anion Gap 7 Blood Urea Nitrogen 36 H Creatinine 0.68 Est Glomerular Filtrat Rate mL/min Glucose Level 244 H Calcium Level 9.4 Phosphorus Level 2.7 Magnesium Level 2.5 Bedside Glucose 259 H 196 Medications Medications Current Medications IV Flush (NS 3 ml) 3 ml PER PROTOCOL IV ; Start 05/18/19 at 02:00 Ondansetron HCl (Zofran Inj) 4 mg Q6H PRN IV NAUSEA/VOMITING; Start 05/18/19 at 02:00 Acetaminophen (Tylenol Tab) 650 mg Q6H PRN PO .PAIN 1-3 OR TEMP; Start 05/18/19 at 02:00 Atorvastatin Calcium (Lipitor) 20 mg HS PO Last administered on 05/22/19 20:46; Admin Dose 20 MG; Start 05/18/19 at 21:00 Albuterol/ Ipratropium (Duoneb) 3 ml Q2H RESP THERAPY PRN HHN wheezing; Start 05/18/19 at 09:30 Fentanyl 100 ml @ 2.5 mls/hr PER PROTOCOL IV Last administered on 05/19/19 06:37; Admin Dose 5 MLS/HR; Start 05/18/19 at 11:00 Hydralazine HCl (Apresoline) 10 mg Q4H PRN IV sbp >160 Last administered on 05/22/19 09:04; Admin Dose 10 MG; Start 05/18/19 at 11:00 Clopidogrel Bisulfate (plaVIX) 75 mg DAILY GTB Last administered on 05/23/19 08:28; Admin Dose 75 MG; Start 05/18/19 at 11:00 Norepinephrine 250 ml @ 1.875 mls/ hr TITRATE IV Last administered on 05/19/19 12:25; Admin Dose 3.75 MLS/HR; Start 05/18/19 at 16:00 IV Flush (NS 10 ml) 10 ml PRN PRN IV FLUSH LINE; Start 05/18/19 at 17:30 Propofol 100 ml @ 2.055 mls/ hr Q12H IV Last administered on 05/23/19 17:45; Admin Dose 10.275 MLS/HR; Start 05/19/19 at 11:30 Levofloxacin/ Dextrose 100 ml @ 100 mls/hr Q24H IVPB Last administered on 05/23/19 12:40; Admin Dose 100 MLS/HR; Start 05/19/19 at 13:00 Cefepime HCl 50 ml @ 100 mls/hr Q12 IVPB Last administered on 05/23/19 08:29; Admin Dose 100 MLS/HR; Start 05/19/19 at 13:00 Budesonide (Pulmicort (Neb)) 0.5 mg BID RESP THERAPY HHN Last administered on 05/23/19 08:45; Admin Dose 0.5 MG; Start 05/20/19 at 20:00 Lansoprazole (Prevacid) 30 mg DAILY@06 GTB ; Start 05/21/19 at 06:00 Midazolam HCl 50 ml @ 1 mls/hr TITRATE IV Last administered on 05/23/19 03:35; Admin Dose 7 MLS/HR; Start 05/21/19 at 15:30 Albuterol (Ventolin Hfa) 4 puff Q6H RESP THERAPY INH Last administered on 05/23/19 14:34; Admin Dose 4 PUFF; Start 05/21/19 at 20:00 Ipratropium [place] (Atrovent Hfa) 4 puff Q6H RESP THERAPY INH Last administered on 05/23/19 14:34; Admin Dose 4 PUFF; Start 05/21/19 at 20:00 Metoprolol Tartrate (Lopressor) 5 mg Q4 PRN IV SBP > 160 Last administered on 05/22/19 01:59; Admin Dose 5 MG; Start 05/22/19 at 02:00 Morphine Sulfate (morphine) 3 mg Q4H PRN IV SEVERE PAIN LEVEL 7-10 Last adm inistered on 05/22/19 01:49; Admin Dose 3 MG; Start 05/22/19 at 02:00 Losartan Potassium (Cozaar) 25 mg BID PO Last administered on 05/23/19 08:29; Admin Dose 25 MG; Start 05/22/19 at 21:00 Amlodipine Besylate (Norvasc) 5 mg BID PO Last administered on 05/23/19 08:28; Admin Dose 5 MG; Start 05/22/19 at 21:00 Insulin Aspart Prota 70%/Aspart 30% (Novolog Mix (70/ 30) Flexpen) 10 unit BID SC ; Start 05/23/19 at 21:00 Methylprednisolone Sodium Succinate (Solu-Medrol) 40 mg BID IV ; Start 05/23/19 at 21:00 Insulin Aspart (Novolog Insulin Pen) NOVOLOG *MILD* ALGORI... Q4 SC Last administered on 05/23/19at 17:49; Admin Dose 2 UNIT; Start 05/23/19 at 17:00 Miscellaneous Information 1 ea NOTE XX ; Start 05/23/19 at 16:00 Glucose (Glutose) 15 gm Q15M PRN PO DECREASED GLUCOSE; Start 05/23/19 at 16:00 Glucose (Glutose) 22.5 gm Q15M PRN PO DECREASED GLUCOSE; Start 05/23/19 at 16:00 Dextrose (D50w Syringe) 25 ml Q15M PRN IV DECREASED GLUCOSE; Start 05/23/19 at 16:00 Dextrose (D50w Syringe) 50 ml Q15M PRN IV DECREASED GLUCOSE; Start 05/23/19 at 16:00 Glucagon (Glucagen) 1 mg Q15M PRN IM DECREASED GLUCOSE; Start 05/23/19 at 16:00 Glucose (Glutose) 15 gm Q15M PRN BUCCAL DECREASED GLUCOSE; Start 05/23/19 at 16:00 Bao Garza DO May 23, 2019 18:57
[2019-05-23] MEDS: INSULIN ASP PROT/ASPART (70/30) PEN SC SCH (20:36)
[2019-05-23] MEDS: ATORVASTATIN 20 MG TAB PO SCH (20:37)
[2019-05-24] VITALS (90 sets, daily range): BP systolic 65–186; BP diastolic 39–108; PULSE 57–101; RESP 15–28
[2019-05-24] MEDS: INSULIN ASPART [NOVOLOG] 3 ML PEN SC SCH ×6 (01:03→20:29)
[2019-05-24] MEDS: ALBUTEROL HFA 8 GM INHALER INH SCH ×4 (01:18→19:50)
[2019-05-24] MEDS: IPRATROPIUM (HFA) 12.9 GM INHALER INH SCH ×4 (01:18→19:50)
[2019-05-24] MEDS: PROPOFOL 100 ML IV SCH ×3 (02:50→20:29)
[2019-05-24] MEDS: LANSOPRAZOLE 30 MG CAP GTB SCH (05:02)
[2019-05-24] MEDS: DEXMEDETOMIDINE IN DEXTROSE 5% 50 ML IV SCH (08:18)
[2019-05-24] MEDS: CEFEPIME 1GM/50 ML (PMX) 50 ML IVPB SCH ×2 (08:28→20:26)
[2019-05-24] MEDS: LOSARTAN 25 MG TAB PO SCH ×2 (08:31→20:27)
[2019-05-24] MEDS: AMLODIPINE 5 MG TAB PO SCH ×2 (08:31→20:27)
[2019-05-24] MEDS: CLOPIDOGREL 75 MG TAB GTB SCH (08:31)
[2019-05-24] MEDS: METHYLPREDNISOLONE 40 MG INJ IV SCH ×2 (08:32→20:22)
[2019-05-24] MEDS: INSULIN ASP PROT/ASPART (70/30) PEN SC SCH ×2 (08:39→20:26)
--- NOTE | 2019-05-24 08:43 | CONS ---
Assessment/Plan Assessment/Plan Assessment/Plan (Daily) Chest x-ray was reviewed which is showing emphysematous changes. Patient is currently on assist control of 18, tidal volume 500, PEEP of 5, 30% FiO2. Propofol is currently on hold. Assessment and recommendations; 1. Patient with history of severe COPD admitted for respiratory failure due to severe hypercapnia and possibly acute bronchitis. 2. History of diabetes and hypertension. 3. Questionable dementia. Baseline mental status at assisted is not available. Patient exhibiting significant agitation off propofol drip. Continue to hold propofol. Start Precedex. If the patient remains calm and responsive ABG will be performed and possibly a CPAP trial will be given as well. Meanwhile consider stopping antibiotics. Based upon chest x-ray findings there is no indication of an ongoing pneumonia. Patient already has completed 5 days of treatment. Prognosis is guarded. 35 minutes of critical care time was spent evaluating the patient. Consultation Date/Type/Reason Admit Date/Time May 18, 2019 at 00:50 Initial Consult Date 05/18/19 Type of Consult Pulmonary/critical care Patient is an 84-year-old gentleman who was sent over from assisted with altered mental status and severe hypoxemia. Upon evaluation patient was found to be in severe hypercapnic respiratory failure with pneumonia. Patient was intubated. By the time I saw him in ER, patient is orally intubated and is currently under paralytic and sedative effect. Patient however did not appear to be in any distress. History has been obtained from medical records. Past medical history; 1. Apparently advanced COPD. 2. Dementia. But the patient according to medical records is ambulatory and is usually awake and alert. Medications; reviewed. Allergies; none. Family history; not available. Social history; patient does have history of heavy smoking. Occupational history; not available. Review of system; not able to be obtained. General exam; elderly male, orally intubated, currently sedated. No distress noted. Requesting Provider: VIRGEN MCQUEEN Date/Time of Note DATE: 05/24/19 TIME: 08:40 24 HR Interval Summary Free Text/Dictation Patient's condition is critical. Patient was taken off propofol or short while ago and is exhibiting agitation. Patient however has remained hemodynamically stable. General exam; elderly male, orally intubated, occasionally agitated. Exam/Review of Systems Exam Vitals Vital Signs Date Temp Pulse Resp B/P (MAP) Pulse Ox O2 O2 Flow FiO2 Time Delivery Rate 05/24/19 66 18 100 30 05:15 05/24/19 121/64 Mechanical 04:30 (83) Ventilator 05/24/19 98.8 04:00 Intake and Output 05/23/19 05/23/19 05/24/19 1515:00 23:00 07:00 IntakeIntake Total 597 ml 583.155 ml 457.540 ml OutputOutput Total 320 ml 370 ml 350 ml BalanceBalance 277 ml 213.155 ml 107.540 ml Exam H EENT exam; supple neck, no lymphadenopathy. Patient is edentulous. Orally intubated. JVD difficult to see because of presence of ross. Pupils are small bilaterally. No neck masses. Orogastric tube in place. Chest exam; diminished breath sounds throughout. S1-S2 audible, no murmurs. Regular rhythm. Abdomen exam; soft, no organomegaly. Nontender. Bowel sounds are audible. Extremity exam; no peripheral edema. NUTRITION REPRESENTATIVE exam; patient is agitated. Results Result Diagram: 05/24/19 0429 05/24/19 0430 Results 24hrs Laboratory Tests Test 05/23/19 15:19 05/23/19 17:43 05/23/19 20:33 05/24/19 01:01 Bedside Glucose 259 H 196 221 H 201 Test 05/24/19 04:29 05/24/19 04:30 05/24/19 04:59 White Blood Count 12.5 H Red Blood Count 3.93 L Hemoglobin 12.2 L Hematocrit 38.7 L Mean Corpuscular 98.5 Volume Mean Corpuscular 31.0 Hemoglobin Mean Corpuscular 31.5 L Hemoglobin Concent Red Cell 14.9 H Distribution Width Platelet Count 215 Mean Platelet Volume 10.7 H Immature 1.400 H Granulocytes % Neutrophils % 91.7 H Lymphocytes % 1.7 L Monocytes % 5.1 Eosinophils % 0.0 Basophils % 0.1 Nucleated Red Blood 0.0 Cells % Immature 0.170 H Granulocytes # Neutrophils # 11.5 H Lymphocytes # 0.2 L Monocytes # 0.6 Eosinophils # 0.0 Basophils # 0.0 Nucleated Red Blood 0.0 Cells # Sodium Level 139 Potassium Level 4.8 Chloride Level 109 Carbon Dioxide Level 26 Anion Gap 4 L Blood Urea Nitrogen 39 H Creatinine 0.65 Glucose Level 187 Calcium Level 9.4 Phosphorus Level 3.9 Magnesium Level 2.5 Albumin 2.7 L Bedside Glucose 213 Medications Medication Current Medications IV Flush (NS 3 ml) 3 ml PER PROTOCOL IV ; Start 05/18/19 at 02:00 Ondansetron HCl (Zofran Inj) 4 mg Q6H PRN IV NAUSEA/VOMITING; Start 05/18/19 at 02:00 Acetaminophen (Tylenol Tab) 650 mg Q6H PRN PO .PAIN 1-3 OR TEMP; Start 05/18/19 at 02:00 Atorvastatin Calcium (Lipitor) 20 mg HS PO Last administered on 05/23/19 20:37; Admin Dose 20 MG; Start 05/18/19 at 21:00 Albuterol/ Ipratropium (Duoneb) 3 ml Q2H RESP THERAPY PRN HHN wheezing; Start 05/18/19 at 09:30 Fentanyl 100 ml @ 2.5 mls/hr PER PROTOCOL IV Last administered on 05/19/19 06:37; Admin Dose 5 MLS/HR; Start 05/18/19 at 11:00 Hydralazine HCl (Apresoline) 10 mg Q4H PRN IV sbp >160 Last administered on 05/22/19 09:04; Admin Dose 10 MG; Start 05/18/19 at 11:00 Clopidogrel Bisulfate (plaVIX) 75 mg DAILY GTB Last administered on 05/23/19 08:28; Admin Dose 75 MG; Start 05/18/19 at 11:00 Norepinephrine 250 ml @ 1.875 mls/ hr TITRATE IV Last administered on 05/19/19 12:25; Admin Dose 3.75 MLS/HR; Start 05/18/19 at 16:00 IV Flush (NS 10 ml) 10 ml PRN PRN IV FLUSH LINE; Start 05/18/19 at 17:30 Propofol 100 ml @ 2.055 mls/ hr Q12H IV Last administered on 05/24/19 02:50; Admin Dose 14.385 MLS/HR; Start 05/19/19 at 11:30 Levofloxacin/ Dextrose 100 ml @ 100 mls/hr Q24H IVPB Last administered on 05/23/19 12:40; Admin Dose 100 MLS/HR; Start 05/19/19 at 13:00 Cefepime HCl 50 ml @ 100 mls/hr Q12 IVPB Last administered on 05/23/19 20:37; Admin Dose 100 MLS/HR; Start 05/19/19 at 13:00 Budesonide (Pulmicort (Neb)) 0.5 mg BID RESP THERAPY HHN Last administered on 05/23/19 19:17; Admin Dose 0.5 MG; Start 05/20/19 at 20:00 Lansoprazole (Prevacid) 30 mg DAILY@06 GTB Last administered on 05/24/19 05:02; Admin Dose 30 MG; Start 05/21/19 at 06:00 Midazolam HCl 50 ml @ 1 mls/hr TITRATE IV Last administered on 05/23/19 03:35; Admin Dose 7 MLS/HR; Start 05/21/19 at 15:30 Albuterol (Ventolin Hfa) 4 puff Q6H RESP THERAPY INH Last administered on 05/24/19 01:18; Admin Dose 4 PUFF; Start 05/21/19 at 20:00 Ipratropium [place] (Atrovent Hfa) 4 puff Q6H RESP THERAPY INH Last administered on 05/24/19 01:18; Admin Dose 4 PUFF; Start 05/21/19 at 20:00 Metoprolol Tartrate (Lopressor) 5 mg Q4 PRN IV SBP > 160 Last administered on 05/22/19 01:59; Admin Dose 5 MG; Start 05/22/19 at 02:00 Morphine Sulfate (morphine) 3 mg Q4H PRN IV SEVERE PAIN LEVEL 7-10 Last administered on 05/22/19 01:49; Admin Dose 3 MG; Start 05/22/19 at 02:00 Losartan Potassium (Cozaar) 25 mg BID PO Last administered on 05/23/19 20:37; Admin Dose 25 MG; Start 05/22/19 at 21:00 Amlodipine Besylate (Norvasc) 5 mg BID PO Last administered on 05/23/19 20:37; Admin Dose 5 MG; Start 05/22/19 at 21:00 Insulin Aspart Prota 70%/Aspart 30% (Novolog Mix (70/ 30) Flexpen) 10 unit BID SC Last administered on 05/23/19 20:36; Admin Dose 10 UNIT; Start 05/23/19 at 21:00 Methylprednisolone Sodium Succinate (Solu-Medrol) 40 mg BID IV Last administered on 05/23/19at 20:34; Admin Dose 40 MG; Start 05/23/19 at 21:00 Insulin Aspart (Novolog Insulin Pen) NOVOLOG *MILD* ALGORI... Q4 SC Last administered on 05/24/19at 05:02; Admin Dose 2 UNIT; Start 05/23/19 at 17:00 Miscellaneous Information 1 ea NOTE XX ; Start 05/23/19 at 16:00 Glucose (Glutose) 15 gm Q15M PRN PO DECREASED GLUCOSE; Start 05/23/19 at 16:00 Glucose (Glutose) 22.5 gm Q15M PRN PO DECREASED GLUCOSE; Start 05/23/19 at 16:00 Dextrose (D50w Syringe) 25 ml Q15M PRN IV DECREASED GLUCOSE; Start 05/23/19 at 16:00 Dextrose (D50w Syringe) 50 ml Q15M PRN IV DECREASED GLUCOSE; Start 05/23/19 at 16:00 Glucagon (Glucagen) 1 mg Q15M PRN IM DECREASED GLUCOSE; Start 05/23/19 at 16:00 Glucose (Glutose) 15 gm Q15M PRN BUCCAL DECREASED GLUCOSE; Start 05/23/19 at 16:00 JUAN F MATA May 24, 2019 08:43
[2019-05-24] MEDS: BUDESONIDE (NEB) 0.5MG/2ML AMP HHN SCH ×2 (09:11→19:49)
--- NOTE | 2019-05-24 12:45 | CONS ---
Assessment/Plan Assessment/Plan Hospital Course (Demo Recall) Respiratory failure, status post intubation Hypertension with labile blood pressure Encephalopathy Preserved left ventricular ejection fraction COPD Acute kidney injury Blood pressure labile, holding parameters on antihypertensives Antibiotics as per primary team Vent management as per pulmonary Consultation Date/Type/Reason Admit Date/Time May 18, 2019 at 00:50 Initial Consult Date 05/18/19 Type of Consult Cardiology Requesting Provider: VIRGEN MCQUEEN Date/Time of Note DATE: 05/24/19 TIME: 12:44 24 HR Interval Summary Free Text/Dictation Sedated and intubated Exam/Review of Systems Vital Signs Vitals Vital Signs Date Temp Pulse Resp B/P (MAP) Pulse Ox O2 O2 Flow FiO2 Time Delivery Rate 05/24/19 66 18 97 10:15 05/24/19 83/52 (62) Mechanical 10:00 Ventilator 05/24/19 97.8 08:00 05/24/19 30 08:00 Intake and Output 05/23/19 05/23/19 05/24/19 1515:00 23:00 07:00 IntakeIntake Total 597 ml 583.155 ml 457.540 ml OutputOutput Total 320 ml 370 ml 350 ml BalanceBalance 277 ml 213.155 ml 107.540 ml Exam Exam Sedated and intubated, no apparent distress Head: normocephalic Respiratory: other (Coarse breath sounds bilaterally, no wheezing) Cardiovascular: regular rate and rhythm (S1-S2 heard) Gastrointestinal: soft, non-tender, bowel sounds Extremities: other (Trace edema) Labs Result Diagram: 05/24/19 0429 05/24/19 0430 Results 24hrs Laboratory Tests Test 05/23/19 15:19 05/23/19 17:43 05/23/19 20:33 05/24/19 01:01 Bedside Glucose 259 H 196 221 H 201 Test 05/24/19 04:29 05/24/19 04:30 05/24/19 04:59 05/24/19 08:29 White Blood Count 12.5 H Red Blood Count 3.93 L Hemoglobin 12.2 L Hematocrit 38.7 L Mean Corpuscular 98.5 Volume Mean Corpuscular 31.0 Hemoglobin Mean Corpuscular 31.5 L Hemoglobin Concent Red Cell 14.9 H Distribution Width Platelet Count 215 Mean Platelet 10.7 H Volume Immature 1.400 H Granulocytes % Neutrophils % 91.7 H Lymphocytes % 1.7 L Monocytes % 5.1 Eosinophils % 0.0 Basophils % 0.1 Nucleated Red 0.0 Blood Cells % Immature 0.170 H Granulocytes # Neutrophils # 11.5 H Lymphocytes # 0.2 L Monocytes # 0.6 Eosinophils # 0.0 Basophils # 0.0 Nucleated Red 0.0 Blood Cells # Sodium Level 139 Potassium Level 4.8 Chloride Level 109 Carbon Dioxide 26 Level Anion Gap 4 L Blood Urea 39 H Nitrogen Creatinine 0.65 Glucose Level 187 Calcium Level 9.4 Phosphorus Level 3.9 Magnesium Level 2.5 Albumin 2.7 L Bedside Glucose 213 162 Test 05/24/19 11:16 Lab Scanned Report REFERENCE LAB Medications Medications Current Medications IV Flush (NS 3 ml) 3 ml PER PROTOCOL IV ; Start 05/18/19 at 02:00 Ondansetron HCl (Zofran Inj) 4 mg Q6H PRN IV NAUSEA/VOMITING; Start 05/18/19 at 02:00 Acetaminophen (Tylenol Tab) 650 mg Q6H PRN PO .PAIN 1-3 OR TEMP; Start 05/18/19 at 02:00 Atorvastatin Calcium (Lipitor) 20 mg HS PO Last administered on 05/23/19at 20:37; Admin Dose 20 MG; Start 05/18/19 at 21:00 Albuterol/ Ipratropium (Duoneb) 3 ml Q2H RESP THERAPY PRN HHN wheezing; Start 05/18/19 at 09:30 Fentanyl 100 ml @ 2.5 mls/hr PER PROTOCOL IV Last administered on 05/19/19at 06:37; Admin Dose 5 MLS/HR; Start 05/18/19 at 11:00 Hydralazine HCl (Apresoline) 10 mg Q4H PRN IV sbp >160 Last administered on 05/22/19at 09:04; Admin Dose 10 MG; Start 05/18/19 at 11:00 Clopidogrel Bisulfate (plaVIX) 75 mg DAILY GTB Last administered on 05/24/19at 08:31; Admin Dose 75 MG; Start 05/18/19 at 11:00 Norepinephrine 250 ml @ 1.875 mls/ hr TITRATE IV Last administered on 9at 12:25; Admin Dose 3.75 MLS/HR; Start 05/18/19 at 16:00 IV Flush (NS 10 ml) 10 ml PRN PRN IV FLUSH LINE; Start 05/18/19 at 17:30 Propofol 100 ml @ 2.055 mls/ hr Q12H IV Last administered on 05/24/19 02:50; Admin Dose 14.385 MLS/HR; Start 05/19/19 at 11:30 Levofloxacin/ Dextrose 100 ml @ 100 mls/hr Q24H IVPB Last administered on 05/23/19 12:40; Admin Dose 100 MLS/HR; Start 05/19/19 at 13:00 Cefepime HCl 50 ml @ 100 mls/hr Q12 IVPB Last administered on 05/24/19 08:28; Admin Dose 100 MLS/HR; Start 05/19/19 at 13:00 Budesonide (Pulmicort (Neb)) 0.5 mg BID RESP THERAPY HHN Last administered on 05/24/19 09:11; Admin Dose 0.5 MG; Start 05/20/19 at 20:00 Lansoprazole (Prevacid) 30 mg DAILY@06 GTB Last administered on 05/24/19 05:02; Admin Dose 30 MG; Start 05/21/19 at 06:00 Midazolam HCl 50 ml @ 1 mls/hr TITRATE IV Last administered on 05/23/19 03:35; Admin Dose 7 MLS/HR; Start 05/21/19 at 15:30 Albuterol (Ventolin Hfa) 4 puff Q6H RESP THERAPY INH Last administered on 05/02 09:10; Admin Dose 4 PUFF; Start 05/21/19 at 20:00 Ipratropium [place] (Atrovent Hfa) 4 puff Q6H RESP THERAPY INH Last administered on 05/24/19 09:11; Admin Dose 4 PUFF; Start 05/21/19 at 20:00 Metoprolol Tartrate (Lopressor) 5 mg Q4 PRN IV SBP > 160 Last administered on 05/22/19 01:59; Admin Dose 5 MG; Start 05/22/19 at 02:00 Morphine Sulfate (morphine) 3 mg Q4H PRN IV SEVERE PAIN LEVEL 7-10 Last administered on 05/22/19 01:49; Admin Dose 3 MG; Start 05/22/19 at 02:00 Losartan Potassium (Cozaar) 25 mg BID PO Last administered on 05/24/19 08:31; Admin Dose 25 MG; Start 05/22/19 at 21:00 Amlodipine Besylate (Norvasc) 5 mg BID PO Last administered on 05/24/19 08:31; Admin Dose 5 MG; Start 05/22/19 at 21:00 Insulin Aspart Prota 70%/Aspart 30% (Novolog Mix (70/ 30) Flexpen) 10 unit BID SC Last administered on 05/24/19at 08:39; Admin Dose 10 UNIT; Start 05/23/19 at 21:00 Methylprednisolone Sodium Succinate (Solu-Medrol) 40 mg BID IV Last administered on 05/24/19 08:32; Admin Dose 40 MG; Start 05/23/19 at 21:00 Insulin Aspart (Novolog Insulin Pen) NOVOLOG *MILD* ALGORI... Q4 SC Last administered on 05/24/19 08:41; Admin Dose 1 UNIT; Start 05/23/19 at 17:00 Miscellaneous Information 1 ea NOTE XX ; Start 05/23/19 at 16:00 Glucose (Glutose) 15 gm Q15M PRN PO DECREASED GLUCOSE; Start 05/23/19 at 16:00 Glucose (Glutose) 22.5 gm Q15M PRN PO DECREASED GLUCOSE; Start 05/23/19 at 16:00 Dextrose (D50w Syringe) 25 ml Q15M PRN IV DECREASED GLUCOSE; Start 05/23/19 at 16:00 Dextrose (D50w Syringe) 50 ml Q15M PRN IV DECREASED GLUCOSE; Start 05/23/19 at 16:00 Glucagon (Glucagen) 1 mg Q15M PRN IM DECREASED GLUCOSE; Start 05/23/19 at 16:00 Glucose (Glutose) 15 gm Q15M PRN BUCCAL DECREASED GLUCOSE; Start 05/23/19 at 16:00 Bao Garza DO May 24, 2019 12:45
[2019-05-24] MEDS: LEVOFLOXACIN 500MG/D5W (PMX) 100 ML IVPB SCH (12:55)
--- NOTE | 2019-05-24 13:06 | CONS ---
Assessment/Plan Assessment/Plan Assessment/Plan (Daily) 1. acute hyperrkalemia - resolved 2. Acute kidney injury due to ATN from septic shock + prerenal azotemia - improved 3. acute hypercapnic respiratory failure 2/2 Septic shock and PNA,, intubated on ventilator 4. H/o HTN 5. h/o HL 6. Septic shock due to bilateral PNA 7. Hypotension and Bradycardia - now stable Plan: BUN/Cr 39/0.65 other electrolytes stable , -IV solu-medrol 40mg Q 8 hr pt went into atrial flutter then converted back to SR in few minutes, Cardiology has been following pt IV abx Cefepime and Levaquin , Renally dose all abx and monitor electorlytes, ID following amlodipine 5 mg PO BID and losartan 25 mg PO BID- meanwhile use IV hydralazine prn will follow up Consultation Date/Type/Reason Admit Date/Time May 18, 2019 at 00:50 Initial Consult Date 05/18/19 Type of Consult NEPHROLOGY Requesting Provider: VIRGEN MCQUEEN Date/Time of Note DATE: 05/24/19 TIME: 13:06 Exam/Review of Systems Exam Vitals Vital Signs Date Temp Pulse Resp B/P (MAP) Pulse Ox O2 O2 Flow FiO2 Time Delivery Rate 05/24/19 65 12:00 05/24/19 18 97 10:15 05/24/19 83/52 (62) Mechanical 10:00 Ventilator 05/24/19 97.8 08:00 05/24/19 30 08:00 Intake and Output 05/23/19 05/23/19 05/24/19 1515:00 23:00 07:00 IntakeIntake Total 597 ml 583.155 ml 457.540 ml OutputOutput Total 320 ml 370 ml 350 ml BalanceBalance 277 ml 213.155 ml 107.540 ml Exam Constitutional: non-verbal ENMT: intubated Neck: supple, non-tender Respiratory: congested cough, crackles/rales, diminished breath sounds Cardiovascular: regular rate and rhythm Gastrointestinal: soft, non-tender Musculoskeletal: muscle weakness, swelling (1+ edema ) Neurological: other (intubated sedated on ventilator ) Results Result Diagram: 05/24/19 0429 05/24/19 0430 Results 24hrs Laboratory Tests Test 05/23/19 15:19 05/23/19 17:43 05/23/19 20:33 05/24/19 01:01 Bedside Glucose 259 H 196 221 H 201 Test 05/24/19 04:29 05/24/19 04:30 05/24/19 04:59 05/24/19 08:29 White Blood Count 12.5 H Red Blood Count 3.93 L Hemoglobin 12.2 L Hematocrit 38.7 L Mean Corpuscular 98.5 Volume Mean Corpuscular 31.0 Hemoglobin Mean Corpuscular 31.5 L Hemoglobin Concent Red Cell 14.9 H Distribution Width Platelet Count 215 Mean Platelet 10.7 H Volume Immature 1.400 H Granulocytes % Neutrophils % 91.7 H Lymphocytes % 1.7 L Monocytes % 5.1 Eosinophils % 0.0 Basophils % 0.1 Nucleated Red 0.0 Blood Cells % Immature 0.170 H Granulocytes # Neutrophils # 11.5 H Lymphocytes # 0.2 L Monocytes # 0.6 Eosinophils # 0.0 Basophils # 0.0 Nucleated Red 0.0 Blood Cells # Sodium Level 139 Potassium Level 4.8 Chloride Level 109 Carbon Dioxide 26 Level Anion Gap 4 L Blood Urea 39 H Nitrogen Creatinine 0.65 Glucose Level 187 Calcium Level 9.4 Phosphorus Level 3.9 Magnesium Level 2.5 Albumin 2.7 L Bedside Glucose 213 162 Test 05/24/19 11:16 Lab Scanned Report REFERENCE LAB Medications Medication Current Medications IV Flush (NS 3 ml) 3 ml PER PROTOCOL IV ; Start 05/18/19 at 02:00 Ondansetron HCl (Zofran Inj) 4 mg Q6H PRN IV NAUSEA/VOMITING; Start 05/18/19 at 02:00 Acetaminophen (Tylenol Tab) 650 mg Q6H PRN PO .PAIN 1-3 OR TEMP; Start 05/18/19 at 02:00 Atorvastatin Calcium (Lipitor) 20 mg HS PO Last administered on 05/23/19at 20:37; Admin Dose 20 MG; Start 05/18/19 at 21:00 Albuterol/ Ipratropium (Duoneb) 3 ml Q2H RESP THERAPY PRN HHN wheezing; Start 05/18/19 at 09:30 Fentanyl 100 ml @ 2.5 mls/hr PER PROTOCOL IV Last administered on 05/19/19at 06:37; Admin Dose 5 MLS/HR; Start 05/18/19 at 11:00 Hydralazine HCl (Apresoline) 10 mg Q4H PRN IV sbp >160 Last administered on 05/22/19 09:04; Admin Dose 10 MG; Start 05/18/19 at 11:00 Clopidogrel Bisulfate (plaVIX) 75 mg DAILY GTB Last administered on 05/24/19 0 8:31; Admin Dose 75 MG; Start 05/18/19 at 11:00 Norepinephrine 250 ml @ 1.875 mls/ hr TITRATE IV Last administered on 05/19/19 12:25; Admin Dose 3.75 MLS/HR; Start 05/18/19 at 16:00 IV Flush (NS 10 ml) 10 ml PRN PRN IV FLUSH LINE; Start 05/18/19 at 17:30 Propofol 100 ml @ 2.055 mls/ hr Q12H IV Last administered on 05/24/19 12:56; Admin Dose 8.22 MLS/HR; Start 05/19/19 at 11:30 Levofloxacin/ Dextrose 100 ml @ 100 mls/hr Q24H IVPB Last administered on 05/24/19 12:55; Admin Dose 100 MLS/HR; Start 05/19/19 at 13:00 Cefepime HCl 50 ml @ 100 mls/hr Q12 IVPB Last administered on 05/24/19 08:28; Admin Dose 100 MLS/HR; Start 05/19/19 at 13:00 Budesonide (Pulmicort (Neb)) 0.5 mg BID RESP THERAPY HHN Last administered on 05/24/19 09:11; Admin Dose 0.5 MG; Start 05/20/19 at 20:00 Lansoprazole (Prevacid) 30 mg DAILY@06 GTB Last administered on 05/24/19 05:02; Admin Dose 30 MG; Start 05/21/19 at 06:00 Midazolam HCl 50 ml @ 1 mls/hr TITRATE IV Last administered on 05/23/19 03:35; Admin Dose 7 MLS/HR; Start 05/21/19 at 15:30 Albuterol (Ventolin Hfa) 4 puff Q6H RESP THERAPY INH Last administered on 05/24/19 09:10; Admin Dose 4 PUFF; Start 05/21/19 at 20:00 Ipratropium [place] (Atrovent Hfa) 4 puff Q6H RESP THERAPY INH Last administered on 05/24/19 09:11; Admin Dose 4 PUFF; Start 05/21/19 at 20:00 Metoprolol Tartrate (Lopressor) 5 mg Q4 PRN IV SBP > 160 Last administered on 05/22/19 01:59; Admin Dose 5 MG; Start 05/22/19 at 02:00 Morphine Sulfate (morphine) 3 mg Q4H PRN IV SEVERE PAIN LEVEL 7-10 Last administered on 05/22/19 01:49; Admin Dose 3 MG; Start 05/22/19 at 02:00 Losartan Potassium (Cozaar) 25 mg BID PO Last administered on 05/24/19 08:31; Admin Dose 25 MG; Start 05/22/19 at 21:00 Amlodipine Besylate (Norvasc) 5 mg BID PO Last administered on 05/24/19 08:31; Admin Dose 5 MG; Start 05/22/19 at 21:00 Insulin Aspart Prota 70%/Aspart 30% (Novolog Mix (70/ 30) Flexpen) 10 unit BID SC Last administered on 05/24/19 08:39; Admin Dose 10 UNIT; Start 05/23/19 at 21:00 Methylprednisolone Sodium Succinate (Solu-Medrol) 40 mg BID IV Last administere d on 05/24/19 08:32; Admin Dose 40 MG; Start 05/23/19 at 21:00 Insulin Aspart (Novolog Insulin Pen) NOVOLOG *MILD* ALGORI... Q4 SC Last administered on 05/24/19 12:58; Admin Dose 1 UNIT; Start 05/23/19 at 17:00 Miscellaneous Information 1 ea NOTE XX ; Start 05/23/19 at 16:00 Glucose (Glutose) 15 gm Q15M PRN PO DECREASED GLUCOSE; Start 05/23/19 at 16:00 Glucose (Glutose) 22.5 gm Q15M PRN PO DECREASED GLUCOSE; Start 05/23/19 at 16:00 Dextrose (D50w Syringe) 25 ml Q15M PRN IV DECREASED GLUCOSE; Start 05/23/19 at 16:00 Dextrose (D50w Syringe) 50 ml Q15M PRN IV DECREASED GLUCOSE; Start 05/23/19 at 16:00 Glucagon (Glucagen) 1 mg Q15M PRN IM DECREASED GLUCOSE; Start 05/23/19 at 16:00 Glucose (Glutose) 15 gm Q15M PRN BUCCAL DECREASED GLUCOSE; Start 05/23/19 at 16:00 EDGARD CLARKE MD May 24, 2019 13:06
--- NOTE | 2019-05-24 15:47 | PN ---
Date/Time of Note Date/Time of Note DATE: 05/24/19 TIME: 15:43 Assessment/Plan VTE Prophylaxis Risk score (from Nsg)>0 risk: 7 SCD applied (from Nsg): Yes Pharmacological prophylaxis: other Lines/Catheters IV Catheter Type (from Nrsg): PICC Line Central line still needed: Yes Urinary Cath still in place: Yes Reason Cath still needed: terminal illness/intractable pain Assessment/Plan Assessment/Plan 1. Acute hypoxic respiratory failure - failed CPAP this am again given tachypnea and hypertension - Pulm on board and appreciate recommendations. - CT chest results noted with emphysema and bilateral effusions with atelectasis vs infiltrate 2. COPD exacerbation - currently on steroids and neb tx. will wean steroids 3. Acute encephalopathy - CT head noted, no acute issues - Neurology consultation appreciated 4. Acute kidney injury- resolved - Nephrology consultation appreciated 5. Hypertension - continue home medications. BP remains stable 6. Mild cognitive impairment - Neurology on board - Baseline is alert and oriented x3, with some memory loss 7. Mild carotid stenosis, right ICA - Continue on Plavix and statin 8. Hyperglycemia - A1c noted - most likely steroid induced 9. Arrhythmia - episode of aflutter/fib seen on monitor but converted back to sinus. Cardiology made aware - continue monitoring - electrolytes within normal limits 10. Disposition - Continue management in ICU while requiring mechanical ventilation - [place] evaluation placed >30 minutes of critical care time spend with patient Result Diagram: 05/24/19 0429 05/24/19 0430 Results 24hrs Laboratory Tests Test 05/23/19 17:43 05/23/19 20:33 05/24/19 01:01 05/24/19 04:29 Bedside Glucose 196 221 H 201 White Blood Count 12.5 H Red Blood Count 3.93 L Hemoglobin 12.2 L Hematocrit 38.7 L Mean Corpuscular 98.5 Volume Mean Corpuscular 31.0 Hemoglobin Mean Corpuscular 31.5 L Hemoglobin Concent Red Cell 14.9 H Distribution Width Platelet Count 215 Mean Platelet 10.7 H Volume Immature 1.400 H Granulocytes % Neutrophils % 91.7 H Lymphocytes % 1.7 L Monocytes % 5.1 Eosinophils % 0.0 Basophils % 0.1 Nucleated Red 0.0 Blood Cells % Immature 0.170 H Granulocytes # Neutrophils # 11.5 H Lymphocytes # 0.2 L Monocytes # 0.6 Eosinophils # 0.0 Basophils # 0.0 Nucleated Red 0.0 Blood Cells # Test 05/24/19 04:30 05/24/19 04:59 05/24/19 08:29 05/24/19 11:16 Sodium Level 139 Potassium Level 4.8 Chloride Level 109 Carbon Dioxide 26 Level Anion Gap 4 L Blood Urea 39 H Nitrogen Creatinine 0.65 Glucose Level 187 Calcium Level 9.4 Phosphorus Level 3.9 Magnesium Level 2.5 Albumin 2.7 L Bedside Glucose 213 162 Lab Scanned Report REFERENCE LAB Test 05/24/19 12:55 Bedside Glucose 155 Subjective 24 Hr Interval Summary Free Text/Dictation Patient remains intubated and on propofol. failed CPAP trial this am due to tachypnea and hypertensive. Exam/Review of Systems Exam Vitals Vital Signs Date Temp Pulse Resp B/P (MAP) Pulse Ox O2 O2 Flow FiO2 Time Delivery Rate 05/24/19 68 18 115/53 100 13:15 (73) 05/24/19 Mechanical 13:00 Ventilator 05/24/19 98.8 12:00 05/24/19 30 11:40 Intake and Output 05/23/19 05/23/19 05/24/19 1515:00 23:00 07:00 IntakeIntake Total 597 ml 583.155 ml 457.540 ml OutputOutput Total 320 ml 370 ml 350 ml BalanceBalance 277 ml 213.155 ml 107.540 ml Exam General: Patient is laying in bed intubated, no acute distress Eyes: EOMI, pupils reactive to light Neck: Supple, nontender, midline Respiratory: Coarse to auscultation bilaterally Cardiovascular: S1, S2, regular rate and rhythm, no obvious murmurs Gastrointestinal: soft, non-tender to palpation, bowel sounds heard. Skin: No new skin lesions Results Results 24hrs Laboratory Tests Test 05/23/19 17:43 05/23/19 20:33 05/24/19 01:01 05/24/19 04:29 Bedside Glucose 196 221 H 201 White Blood Count 12.5 H Red Blood Count 3.93 L Hemoglobin 12.2 L Hematocrit 38.7 L Mean Corpuscular 98.5 Volume Mean Corpuscular 31.0 Hemoglobin Mean Corpuscular 31.5 L Hemoglobin Concent Red Cell 14.9 H Distribution Width Platelet Count 215 Mean Platelet 10.7 H Volume Immature 1.400 H Granulocytes % Neutrophils % 91.7 H Lymphocytes % 1.7 L Monocytes % 5.1 Eosinophils % 0.0 Basophils % 0.1 Nucleated Red 0.0 Blood Cells % Immature 0.170 H Granulocytes # Neutrophils # 11.5 H Lymphocytes # 0.2 L Monocytes # 0.6 Eosinophils # 0.0 Basophils # 0.0 Nucleated Red 0.0 Blood Cells # Test 05/24/19 04:30 05/24/19 04:59 05/24/19 08:29 05/24/19 11:16 Sodium Level 139 Potassium Level 4.8 Chloride Level 109 Carbon Dioxide 26 Level Anion Gap 4 L Blood Urea 39 H Nitrogen Creatinine 0.65 Glucose Level 187 Calcium Level 9.4 Phosphorus Level 3.9 Magnesium Level 2.5 Albumin 2.7 L Bedside Glucose 213 162 Lab Scanned Report REFERENCE LAB Test 05/24/19 12:55 Bedside Glucose 155 Medications Medication Current Medications IV Flush (NS 3 ml) 3 ml PER PROTOCOL IV ; Start 05/18/19 at 02:00 Ondansetron HCl (Zofran Inj) 4 mg Q6H PRN IV NAUSEA/VOMITING; Start 05/18/19 at 02:00 Acetaminophen (Tylenol Tab) 650 mg Q6H PRN PO .PAIN 1-3 OR TEMP; Start 05/18/19 at 02:00 Atorvastatin Calcium (Lipitor) 20 mg HS PO Last administered on 05/23/19at 20:37; Admin Dose 20 MG; Start 05/18/19 at 21:00 Albuterol/ Ipratropium (Duoneb) 3 ml Q2H RESP THERAPY PRN HHN wheezing; Start 05/18/19 at 09:30 Fentanyl 100 ml @ 2.5 mls/hr PER PROTOCOL IV Last administered on 05/19/19at 06:37; Admin Dose 5 MLS/HR; Start 05/18/19 at 11:00 Hydralazine HCl (Apresoline) 10 mg Q4H PRN IV sbp >160 Last administered on 05/22/19at 09:04; Admin Dose 10 MG; Start 05/18/19 at 11:00 Clopidogrel Bisulfate (plaVIX) 75 mg DAILY GTB Last administered on 05/24/19 08:31; Admin Dose 75 MG; Start 05/18/19 at 11:00 Norepinephrine 250 ml @ 1.875 mls/ hr TITRATE IV Last administered on 05/19/19 12:25; Admin Dose 3.75 MLS/HR; Start 05/18/19 at 16:00 IV Flush (NS 10 ml) 10 ml PRN PRN IV FLUSH LINE; Start 05/18/19 at 17:30 Propofol 100 ml @ 2.055 mls/ hr Q12H IV Last administered on 05/24/19 12:56; Admin Dose 8.22 MLS/HR; Start 05/19/19 at 11:30 Levofloxacin/ Dextrose 100 ml @ 100 mls/hr Q24H IVPB Last administered on 05/24/19 12:55; Admin Dose 100 MLS/HR; Start 05/19/19 at 13:00 Cefepime HCl 50 ml @ 100 mls/hr Q12 IVPB Last administered on 05/24/19 08:28; Admin Dose 100 MLS/HR; Start 05/19/19 at 13:00 Budesonide (Pulmicort (Neb)) 0.5 mg BID RESP THERAPY HHN Last administered on 05/24/19 09:11; Admin Dose 0.5 MG; Start 05/20/19 at 20:00 Lansoprazole (Prevacid) 30 mg DAILY@06 GTB Last administered on 05/24/19 05:02; Admin Dose 30 MG; Start 05/21/19 at 06:00 Midazolam HCl 50 ml @ 1 mls/hr TITRATE IV Last administered on 05/23/19 03:35; Admin Dose 7 MLS/HR; Start 05/21/19 at 15:30 Albuterol (Ventolin Hfa) 4 puff Q6H RESP THERAPY INH Last administered on 05/24/19 14:16; Admin Dose 4 PUFF; Start 05/21/19 at 20:00 Ipratropium [place] (Atrovent Hfa) 4 puff Q6H RESP THERAPY INH Last a dministered on 05/24/19 14:17; Admin Dose 4 PUFF; Start 05/21/19 at 20:00 Metoprolol Tartrate (Lopressor) 5 mg Q4 PRN IV SBP > 160 Last administered on 05/22/19 01:59; Admin Dose 5 MG; Start 05/22/19 at 02:00 Morphine Sulfate (morphine) 3 mg Q4H PRN IV SEVERE PAIN LEVEL 7-10 Last administered on 05/22/19at 01:49; Admin Dose 3 MG; Start 05/22/19 at 02:00 Losartan Potassium (Cozaar) 25 mg BID PO Last administered on 05/24/19 08:31; Admin Dose 25 MG; Start 05/22/19 at 21:00 Amlodipine Besylate (Norvasc) 5 mg BID PO Last administered on 05/24/19 08:31; Admin Dose 5 MG; Start 05/22/19 at 21:00 Insulin Aspart Prota 70%/Aspart 30% (Novolog Mix (70/ 30) Flexpen) 10 unit BID SC Last administered on 05/24/19 08:39; Admin Dose 10 UNIT; Start 05/23/19 at 21:00 Methylprednisolone Sodium Succinate (Solu-Medrol) 40 mg BID IV Last administered on 05/24/19at 08:32; Admin Dose 40 MG; Start 05/23/19 at 21:00 Insulin Aspart (Novolog Insulin Pen) NOVOLOG *MILD* ALGORI... Q4 SC Last administered on 05/24/19at 12:58; Admin Dose 1 UNIT; Start 05/23/19 at 17:00 Miscellaneous Information 1 ea NOTE XX ; Start 05/23/19 at 16:00 Glucose (Glutose) 15 gm Q15M PRN PO DECREASED GLUCOSE; Start 05/23/19 at 16:00 Glucose (Glutose) 22.5 gm Q15M PRN PO DECREASED GLUCOSE; Start 05/23/19 at 16:00 Dextrose (D50w Syringe) 25 ml Q15M PRN IV DECREASED GLUCOSE; Start 05/23/19 at 16:00 Dextrose (D50w Syringe) 50 ml Q15M PRN IV DECREASED GLUCOSE; Start 05/23/19 at 16:00 Glucagon (Glucagen) 1 mg Q15M PRN IM DECREASED GLUCOSE; Start 05/23/19 at 16:00 Glucose (Glutose) 15 gm Q15M PRN BUCCAL DECREASED GLUCOSE; Start 05/23/19 at 16:00 SOFIA AYOUB MD May 24, 2019 15:47
[2019-05-24] MEDS: NORepinephrine 8MG/250 ML (PMX 250 ML IV SCH (17:49)
[2019-05-24] MEDS: ATORVASTATIN 20 MG TAB PO SCH (20:27)
[2019-05-25] VITALS (74 sets, daily range): BP systolic 78–164; BP diastolic 47–86; PULSE 53–83; RESP 11–35
[2019-05-25] MEDS: INSULIN ASPART [NOVOLOG] 3 ML PEN SC SCH ×6 (00:56→21:04)
[2019-05-25] MEDS: ALBUTEROL HFA 8 GM INHALER INH SCH ×4 (01:39→19:26)
[2019-05-25] MEDS: IPRATROPIUM (HFA) 12.9 GM INHALER INH SCH ×4 (01:39→19:26)
[2019-05-25] MEDS: LANSOPRAZOLE 30 MG CAP GTB SCH (05:00)
[2019-05-25] MEDS: PROPOFOL 100 ML IV SCH ×3 (06:17→22:46)
--- NOTE | 2019-05-25 06:56 | PN ---
DATE: 05/24/2019 SUBJECTIVE: No events overnight. The patient failed weaning trials this morning. He is intubated a nd sedated, in no distress. WBC 12.5, platelets 215, neutrophils 91.7, BUN 39, creatinine 0.65. DIAGNOSTICS: Chest x-ray this morning revealed no significant change. INDWELLINGS: The endotracheal tube, NG tube, Hernández, PICC line. ANTIMICROBIALS: The patient remains on Levaquin and cefepime. He is also on steroids. PHYSICAL EXAMINATION: GENERAL: Chronically ill-appearing, elderly man who is lying comfortably in bed. HEENT: Head atraumatic, normocephalic. NECK: Supple. CHEST: Rise symmetrical. Breath sounds diminished to bases. HEART: S1, S2. ABDOMEN: Soft, bowel sounds present. EXTREMITIES: With trace edema. ASSESSMENT: 1. Status post septic shock. 2. Acute respiratory failure, patient is intubated. 3. Pneumonia. 4. Chronic obstructive pulmonary disease exacerbation. PLAN: The patient remains unchanged. Continue present care, antibiotics. We will send sputum for stella snow. Discussed with RN. Dictated By: KURT SO PRODUCTION ESTIMATOR for FROY HURT MD NI/NTS Conf#: [id number] DID#: [id number] CC: KRISTIN BASS MD;*EndCC*
[2019-05-25] MEDS: CEFEPIME 1GM/50 ML (PMX) 50 ML IVPB SCH (08:56)
[2019-05-25] MEDS: CLOPIDOGREL 75 MG TAB GTB SCH (08:56)
[2019-05-25] MEDS: LOSARTAN 25 MG TAB PO SCH ×2 (08:57→20:49)
[2019-05-25] MEDS: AMLODIPINE 5 MG TAB PO SCH ×2 (08:58→20:50)
[2019-05-25] MEDS: METHYLPREDNISOLONE 40 MG INJ IV SCH ×2 (09:03→20:50)
[2019-05-25] MEDS: INSULIN ASP PROT/ASPART (70/30) PEN SC SCH ×2 (09:08→21:03)
[2019-05-25] MEDS: BUDESONIDE (NEB) 0.5MG/2ML AMP HHN SCH ×2 (09:18→19:24)
--- NOTE | 2019-05-25 09:56 | CONS ---
Assessment/Plan Assessment/Plan Assessment/Plan (Daily) Ventilator setting; AC of 18, tidal volume 500, PEEP of 5, 30% FiO2. Patient is on propofol 20 mics per kilogram per minute. Assessment and recommendations; 1. Patient with history of severe COPD admitted with respiratory failure due to severe hypercapnia and bronchitis. 2. Patient has failed multiple weaning trials from ventilator. 3. Interval resolution of hypotension. 4. History of diabetes and hypertension. Continue current supportive care. Patient has again failed a CPAP trial this morning. Will discontinue antibiotics. Patient to be given another sedation vacation and CPAP trial in 24 hours. Prognosis is guarded. 35 minutes of critical care time was spent evaluating patient. Consultation Date/Type/Reason Admit Date/Time May 18, 2019 at 00:50 Initial Consult Date 05/18/19 Type of Consult Pulmonary/critical care Patient is an 84-year-old gentleman who was sent over from detention with altered mental status and severe hypoxemia. Upon evaluation patient was found to be in severe hypercapnic respiratory failure with pneumonia. Patient was intubated. By the time I saw him in ER, patient is orally intubated and is currently under paralytic and sedative effect. Patient however did not appear to be in any distress. History has been obtained from medical records. Past medical history; 1. Apparently advanced COPD. 2. Dementia. But the patient according to medical records is ambulatory and is usually awake and alert. Medications; reviewed. Allergies; none. Family history; not available. Social history; patient does have history of heavy smoking. Occupational history; not available. Review of system; not able to be obtained. General exam; elderly male, orally intubated, currently sedated. No distress noted. Requesting Provider: VIRGEN MCQUEEN Date/Time of Note DATE: 05/25/19 TIME: 09:53 24 HR Interval Summary Free Text/Dictation Patient's condition is critical. Failed a CPAP trial yesterday. Patient however has remained hemodynamically stable. General exam; elderly male, awake and responsive despite being on propofol. Currently no distress. Exam/Review of Systems Exam Vitals Vital Signs Date Temp Pulse Resp B/P (MAP) Pulse Ox O2 O2 Flow FiO2 Time Delivery Rate 05/25/19 58 18 100 30 07:05 05/25/19 126/62 Mechanical 05:30 (83) Ventilator 05/25/19 98.4 04:00 Intake and Output 05/24/19 05/24/19 05/25/19 1414:59 22:59 06:59 IntakeIntake Total 350 ml 489.575 ml 567.650 ml OutputOutput Total 330 ml 360 ml 400 ml BalanceBalance 20 ml 129.575 ml 167.650 ml Exam H ENT exam; supple neck, JVD difficult to see because of Rosas.. No lymphadenopathy. Midline trachea. No thyromegaly. Patient is edentulous. Orally intubated. Chest exam; diminished breath sounds bilaterally. No added sounds. S1-S2 audible, no murmurs. Regular rhythm. Abdomen exam; soft, nontender. No organomegaly. No scars are present. Bowel sounds are audible. Extremity exam; no peripheral edema clubbing. TRAFFIC CLERK exam; no focal deficit. Results Result Diagram: 05/25/19 0336 05/25/19 0336 Results 24hrs Laboratory Tests Test 05/24/19 11:16 05/24/19 12:55 05/24/19 17:29 05/24/19 20:24 Lab Scanned Report REFERENCE LAB Bedside Glucose 155 174 204 Test 05/25/19 00:55 05/25/19 03:36 05/25/19 04:59 05/25/19 09:02 Bedside Glucose 134 144 173 White Blood Count 11.6 H Red Blood Count 3.96 L Hemoglobin 12.3 L Hematocrit 38.6 L Mean Corpuscular 97.5 Volume Mean Corpuscular 31.1 Hemoglobin Mean Corpuscular 31.9 L Hemoglobin Concent Red Cell 14.6 H Distribution Width Platelet Count 218 Mean Platelet 10.6 H Volume Immature 1.200 H Granulocytes % Neutrophils % 91.1 H Lymphocytes % 2.7 L Monocytes % 4.8 Eosinophils % 0.0 Basophils % 0.2 Nucleated Red 0.0 Blood Cells % Immature 0.140 H Granulocytes # Neutrophils # 10.6 H Lymphocytes # 0.3 L Monocytes # 0.6 Eosinophils # 0.0 Basophils # 0.0 Nucleated Red 0.0 Blood Cells # Sodium Level 139 Potassium Level 4.6 Chloride Level 107 Carbon Dioxide 28 Level Anion Gap 4 L Blood Urea 36 H Nitrogen Creatinine 0.60 L Glucose Level 154 Calcium Level 9.3 Phosphorus Level 3.8 Magnesium Level 2.4 Albumin 2.7 L Procalcitonin 0.19 H Medications Medication Current Medications IV Flush (NS 3 ml) 3 ml PER PROTOCOL IV ; Start 05/18/19 at 02:00 Ondansetron HCl (Zofran Inj) 4 mg Q6H PRN IV NAUSEA/VOMITING; Start 05/18/19 at 02:00 Acetaminophen (Tylenol Tab) 650 mg Q6H PRN PO .PAIN 1-3 OR TEMP; Start 05/18/19 at 02:00 Atorvastatin Calcium (Lipitor) 20 mg HS PO Last administered on 05/24/19 20:27; Admin Dose 20 MG; Start 05/18/19 at 21:00 Albuterol/ Ipratropium (Duoneb) 3 ml Q2H RESP THERAPY PRN HHN wheezing; Start 05/18/19 at 09:30 Fentanyl 100 ml @ 2.5 mls/hr PER PROTOCOL IV Last administered on 05/19/19 06:37; Admin Dose 5 MLS/HR; Start 05/18/19 at 11:00 Hydralazine HCl (Apresoline) 10 mg Q4H PRN IV sbp >160 Last administered on 05/22/19 09:04; Admin Dose 10 MG; Start 05/18/19 at 11:00 Clopidogrel Bisulfate (plaVIX) 75 mg DAILY GTB Last administered on 05/25/19 08:56; Admin Dose 75 MG; Start 05/18/19 at 11:00 Norepinephrine 250 ml @ 1.875 mls/ hr TITRATE IV Last administered on 05/24/19 17:49; Admin Dose 3.75 MLS/HR; Start 05/18/19 at 16:00 IV Flush (NS 10 ml) 10 ml PRN PRN IV FLUSH LINE; Start 05/18/19 at 17:30 Propofol 100 ml @ 2.055 mls/ hr Q12H IV Last administered on 05/25/19 06:17; Admin Dose 12.33 MLS/HR; Start 05/19/19 at 11:30 Levofloxacin/ Dextrose 100 ml @ 100 mls/hr Q24H IVPB Last administered on 05/24/19 12:55; Admin Dose 100 MLS/HR; Start 05/19/19 at 13:00 Cefepime HCl 50 ml @ 100 mls/hr Q12 IVPB Last administered on 05/25/19 08:56; Admin Dose 100 MLS/HR; Start 05/19/19 at 13:00 Budesonide (Pulmicort (Neb)) 0.5 mg BID RESP THERAPY HHN Last administered on 05/25/19 09:18; Admin Dose 0.5 MG; Start 05/20/19 at 20:00 Lansoprazole (Prevacid) 30 mg DAILY@06 GTB Last administered on 05/25/19 05:00; Admin Dose 30 MG; Start 05/21/19 at 06:00 Midazolam HCl 50 ml @ 1 mls/hr TITRATE IV Last administered on 05/23/19 03:35; Admin Dose 7 MLS/HR; Start 05/21/19 at 15:30 Albuterol (Ventolin Hfa) 4 puff Q6H RESP THERAPY INH Last administered on 05/25/19 08:34; Admin Dose 4 PUFF; Start 05/21/19 at 20:00 Ipratropium [place] (Atrovent Hfa) 4 puff Q6H RESP THERAPY INH Last administered on 05/25/19 08:34; Admin Dose 4 PUFF; Start 05/21/19 at 20:00 Metoprolol Tartrate (Lopressor) 5 mg Q4 PRN IV SBP > 160 Last administered on 05/22/19 01:59; Admin Dose 5 MG; Start 05/22/19 at 02:00 Morphine Sulfate (morphine) 3 mg Q4H PRN IV SEVERE PAIN LEVEL 7-10 Last administered on 05/22/19 01:49; Admin Dose 3 MG; Start 05/22/19 at 02:00 Losartan Potassium (Cozaar) 25 mg BID PO Last administered on 05/25/19 08:57; Admin Dose 25 MG; Start 05/22/19 at 21:00 Amlodipine Besylate (Norvasc) 5 mg BID PO Last administered on 05/25/19 08:58; Admin Dose 5 MG; Start 05/22/19 at 21:00 Insulin Aspart Prota 70%/Aspart 30% (Novolog Mix (70/ 30) Flexpen) 10 unit BID SC Last administered on 05/25/19 09:08; Admin Dose 10 UNIT; Start 05/23/19 at 21:00 Methylprednisolone Sodium Succinate (Solu-Medrol) 40 mg BID IV Last administered on 7/25/19at 09:03; Admin Dose 40 MG; Start 05/23/19 at 21:00 Insulin Aspart (Novolog Insulin Pen) NOVOLOG *MILD* ALGORI... Q4 SC Last administered on 05/25/19at 09:08; Admin Dose 1 UNIT; Start 05/23/19 at 17:00 Miscellaneous Information 1 ea NOTE XX ; Start 05/23/19 at 16:00 Glucose (Glutose) 15 gm Q15M PRN PO DECREASED GLUCOSE; Start 05/23/19 at 16:00 Glucose (Glutose) 22.5 gm Q15M PRN PO DECREASED GLUCOSE; Start 05/23/19 at 16:00 Dextrose (D50w Syringe) 25 ml Q15M PRN IV DECREASED GLUCOSE; Start 05/23/19 at 16:00 Dextrose (D50w Syringe) 50 ml Q15M PRN IV DECREASED GLUCOSE; Start 05/23/19 at 16:00 Glucagon (Glucagen) 1 mg Q15M PRN IM DECREASED GLUCOSE; Start 05/23/19 at 16:00 Glucose (Glutose) 15 gm Q15M PRN BUCCAL DECREASED GLUCOSE; Start 05/23/19 at 16:00 JUAN F MATA May 25, 2019 09:56
--- NOTE | 2019-05-25 10:25 | CONS ---
Assessment/Plan Assessment/Plan Assessment/Plan (Daily) 1. acute hyperrkalemia - resolved 2. Acute kidney injury due to ATN from septic shock + prerenal azotemia - improved 3. acute hypercapnic respiratory failure 2/2 Septic shock and PNA,, intubated on ventilator 4. H/o HTN 5. h/o HL 6. Septic shock due to bilateral PNA 7. Hypotension and Bradycardia - now stable Plan: BUN/Cr 36/0.6 other electrolytes stable , -IV solu-medrol 40mg Q 8 hr pt has intermittent episodes of PAT, non sustained, Cardiology following IV abx Cefepime and Levaquin , Renally dose all abx and monitor electorlytes, ID following amlodipine 5 mg PO BID and losartan 25 mg PO BID- meanwhile use IV hydralazine prn will follow up Consultation Date/Type/Reason Admit Date/Time May 18, 2019 at 00:50 Initial Consult Date 05/18/19 Type of Consult NEPHROLOGY Requesting Provider: VIRGEN MCQUEEN Date/Time of Note DATE: 05/25/19 TIME: 10:25 Exam/Review of Systems Exam Vitals Vital Signs Date Temp Pulse Resp B/P (MAP) Pulse Ox O2 O2 Flow FiO2 Time Delivery Rate 05/25/19 82 18 133/64 Mechanical 10:00 (87) Ventilator 05/25/19 99 09:15 05/25/19 30 08:00 05/25/19 98.7 07:00 Intake and Output 05/24/19 05/24/19 05/25/19 1515:00 23:00 07:00 IntakeIntake Total 350 ml 549.850 ml 457.375 ml OutputOutput Total 330 ml 370 ml 350 ml BalanceBalance 20 ml 179.850 ml 107.375 ml Exam Constitutional: non-verbal ENMT: intubated Neck: supple, non-tender Respiratory: congested cough, crackles/rales, diminished breath sounds Cardiovascular: regular rate and rhythm Gastrointestinal: soft, non-tender Musculoskeletal: muscle weakness, swelling (1+ edema ) Neurological: other (intubated sedated on ventilator ) Results Result Diagram: 05/25/19 0336 05/25/19 0336 Results 24hrs Laboratory Tests Test 05/24/19 11:16 05/24/19 12:55 05/24/19 17:29 05/24/19 20:24 Lab Scanned Report REFERENCE LAB Bedside Glucose 155 174 204 Test 05/25/19 00:55 05/25/19 03:36 05/25/19 04:59 05/25/19 09:02 Bedside Glucose 134 144 173 White Blood Count 11.6 H Red Blood Count 3.96 L Hemoglobin 12.3 L Hematocrit 38.6 L Mean Corpuscular 97.5 Volume Mean Corpuscular 31.1 Hemoglobin Mean Corpuscular 31.9 L Hemoglobin Concent Red Cell 14.6 H Distribution Width Platelet Count 218 Mean Platelet 10.6 H Volume Immature 1.200 H Granulocytes % Neutrophils % 91.1 H Lymphocytes % 2.7 L Monocytes % 4.8 Eosinophils % 0.0 Basophils % 0.2 Nucleated Red 0.0 Blood Cells % Immature 0.140 H Granulocytes # Neutrophils # 10.6 H Lymphocytes # 0.3 L Monocytes # 0.6 Eosinophils # 0.0 Basophils # 0.0 Nucleated Red 0.0 Blood Cells # Sodium Level 139 Potassium Level 4.6 Chloride Level 107 Carbon Dioxide 28 Level Anion Gap 4 L Blood Urea 36 H Nitrogen Creatinine 0.60 L Glucose Level 154 Calcium Level 9.3 Phosphorus Level 3.8 Magnesium Level 2.4 Albumin 2.7 L Procalcitonin 0.19 H Medications Medication Current Medications IV Flush (NS 3 ml) 3 ml PER PROTOCOL IV ; Start 05/18/19 at 02:00 Ondansetron HCl (Zofran Inj) 4 mg Q6H PRN IV NAUSEA/VOMITING; Start 05/18/19 at 02:00 Acetaminophen (Tylenol Tab) 650 mg Q6H PRN PO .PAIN 1-3 OR TEMP; Start 05/18/19 at 02:00 Atorvastatin Calcium (Lipitor) 20 mg HS PO Last administered on 05/24/19at 20:27; Admin Dose 20 MG; Start 05/18/19 at 21:00 Albuterol/ Ipratropium (Duoneb) 3 ml Q2H RESP THERAPY PRN HHN wheezing; Start 05/18/19 at 09:30 Fentanyl 100 ml @ 2.5 mls/hr PER PROTOCOL IV Last administered on 05/19/19at 06:37; Admin Dose 5 MLS/HR; Start 05/18/19 at 11:00 Hydralazine HCl (Apresoline) 10 mg Q4H PRN IV sbp >160 Last administered on 05/22/19 09:04; Admin Dose 10 MG; Start 05/18/19 at 11:00 Clopidogrel Bisulfate (plaVIX) 75 mg DAILY GTB Last administered on 05/25/19 08:56; Admin Dose 75 MG; Start 05/18/19 at 11:00 Norepinephrine 250 ml @ 1.875 mls/ hr TITRATE IV Last administered on 05/24/19 17:49; Admin Dose 3.75 MLS/HR; Start 05/18/19 at 16:00 IV Flush (NS 10 ml) 10 ml PRN PRN IV FLUSH LINE; Start 05/18/19 at 17:30 Propofol 100 ml @ 2.055 mls/ hr Q12H IV Last administered on 05/25/19 06:17; Admin Dose 12.33 MLS/HR; Start 05/19/19 at 11:30 Budesonide (Pulmicort (Neb)) 0.5 mg BID RESP THERAPY HHN Last administered on 05/25/19 09:18; Admin Dose 0.5 MG; Start 05/20/19 at 20:00 Lansoprazole (Prevacid) 30 mg DAILY@06 GTB Last administered on 05/25/19 05:00; Admin Dose 30 MG; Start 05/21/19 at 06:00 Midazolam HCl 50 ml @ 1 mls/hr TITRATE IV Last administered on 05/23/19 03:35; Admin Dose 7 MLS/HR; Start 05/21/19 at 15:30 Albuterol (Ventolin Hfa) 4 puff Q6H RESP THERAPY INH Last administered on 05/25/19 08:34; Admin Dose 4 PUFF; Start 05/21/19 at 20:00 Ipratropium [place] (Atrovent Hfa) 4 puff Q6H RESP THERAPY INH Last administered on 05/25/19 08:34; Admin Dose 4 PUFF; Start 05/21/19 at 20:00 Metoprolol Tartrate (Lopressor) 5 mg Q4 PRN IV SBP > 160 Last administered on 05/22/19 01:59; Admin Dose 5 MG; Start 05/22/19 at 02:00 Morphine Sulfate (morphine) 3 mg Q4H PRN IV SEVERE PAIN LEVEL 7-10 Last administered on 7/22/19at 01:49; Admin Dose 3 MG; Start 05/22/19 at 02:00 Losartan Potassium (Cozaar) 25 mg BID PO Last administered on 05/25/19 08:57; Admin Dose 25 MG; Start 05/22/19 at 21:00 Amlodipine Besylate (Norvasc) 5 mg BID PO Last administered on 05/25/19 08:58; Admin Dose 5 MG; Start 05/22/19 at 21:00 Insulin Aspart Prota 70%/Aspart 30% (Novolog Mix (70/ 30) Flexpen) 10 unit BID SC Last administered on 05/25/19 09:08; Admin Dose 10 UNIT; Start 05/23/19 at 21:00 Methylprednisolone Sodium Succinate (Solu-Medrol) 40 mg BID IV Last administered on 05/25/19 09:03; Admin Dose 40 MG; Start 05/23/19 at 21:00 Insulin Aspart (Novolog Insulin Pen) NOVOLOG *MILD* ALGORI... Q4 SC Last administered on 05/25/19 09:08; Admin Dose 1 UNIT; Start 05/23/19 at 17:00 Miscellaneous Information 1 ea NOTE XX ; Start 05/23/19 at 16:00 Glucose (Glutose) 15 gm Q15M PRN PO DECREASED GLUCOSE; Start 05/23/19 at 16:00 Glucose (Glutose) 22.5 gm Q15M PRN PO DECREASED GLUCOSE; Start 05/23/19 at 16:00 Dextrose (D50w Syringe) 25 ml Q15M PRN IV DECREASED GLUCOSE; Start 05/23/19 at 16:00 Dextrose (D50w Syringe) 50 ml Q15M PRN IV DECREASED GLUCOSE; Start 05/23/19 at 16:00 Glucagon (Glucagen) 1 mg Q15M PRN IM DECREASED GLUCOSE; Start 05/23/19 at 16:00 Glucose (Glutose) 15 gm Q15M PRN BUCCAL DECREASED GLUCOSE; Start 05/23/19 at 16:00 EDGARD CLARKE MD May 25, 2019 10:25
--- NOTE | 2019-05-25 15:57 | PN ---
Date/Time of Note Date/Time of Note DATE: 05/25/19 TIME: 15:53 Assessment/Plan VTE Prophylaxis Risk score (from Nsg)>0 risk: 11 SCD applied (from Nsg): Yes Pharmacological prophylaxis: other Lines/Catheters IV Catheter Type (from Nrsg): PICC Line Central line still needed: Yes Urinary Cath still in place: Yes Reason Cath still needed: terminal illness/intractable pain Assessment/Plan Assessment/Plan 1. Acute hypoxic respiratory failure - continues to fail CPAP. Will check CXR in am - Pulm on board and appreciate recommendations. - CT chest results noted with emphysema and bilateral effusions with atelectasis vs infiltrate 2. COPD exacerbation - currently on steroids and neb tx. will wean steroids 3. Acute encephalopathy - CT head noted, no acute issues - Neurology consultation appreciated 4. Acute kidney injury- resolved - Nephrology consultation appreciated 5. Hypertension - continue home medications. BP remains stable 6. Mild cognitive impairment - Neurology on board - Baseline is alert and oriented x3, with some memory loss 7. Mild carotid stenosis, right ICA - Continue on Plavix and statin 8. Hyperglycemia- resolved - A1c noted - will decrease insulin requirement as steroids tapered 9. Arrhythmia - patient had a few seconds of PAT and trigeminy - continue monitoring - electrolytes within normal limits 10. Disposition - Continue management in ICU while requiring mechanical ventilation - [place] evaluation placed >30 minutes of critical care time spend with patient Result Diagram: 05/25/19 0336 05/25/19 0336 Results 24hrs Laboratory Tests Test 05/24/19 17:29 05/24/19 20:24 05/25/19 00:55 05/25/19 03:36 Bedside Glucose 174 204 134 White Blood Count 11.6 H Red Blood Count 3.96 L Hemoglobin 12.3 L Hematocrit 38.6 L Mean Corpuscular 97.5 Volume Mean Corpuscular 31.1 Hemoglobin Mean Corpuscular 31.9 L Hemoglobin Concent Red Cell 14.6 H Distribution Width Platelet Count 218 Mean Platelet Volume 10.6 H Immature 1.200 H Granulocytes % Neutrophils % 91.1 H Lymphocytes % 2.7 L Monocytes % 4.8 Eosinophils % 0.0 Basophils % 0.2 Nucleated Red Blood 0.0 Cells % Immature 0.140 H Granulocytes # Neutrophils # 10.6 H Lymphocytes # 0.3 L Monocytes # 0.6 Eosinophils # 0.0 Basophils # 0.0 Nucleated Red Blood 0.0 Cells # Sodium Level 139 Potassium Level 4.6 Chloride Level 107 Carbon Dioxide Level 28 Anion Gap 4 L Blood Urea Nitrogen 36 H Creatinine 0.60 L Glucose Level 154 Calcium Level 9.3 Phosphorus Level 3.8 Magnesium Level 2.4 Albumin 2.7 L Procalcitonin 0.19 H Test 05/25/19 04:59 05/25/19 09:02 05/25/19 12:39 Bedside Glucose 144 173 135 Subjective 24 Hr Interval Summary Free Text/Dictation Patient failed CPAP trial this am due to tachypnea. Still awake on propofol and appears uncomfortable. Exam/Review of Systems Exam Vitals Vital Signs Date Temp Pulse Resp B/P (MAP) Pulse Ox O2 O2 Flow FiO2 Time Delivery Rate 05/25/19 73 18 95 30 15:10 05/25/19 137/68 Mechanical 15:00 (91) Ventilator 05/25/19 98.7 12:00 Intake and Output 05/24/19 05/24/19 05/25/19 1515:00 23:00 07:00 IntakeIntake Total 350 ml 549.850 ml 457.375 ml OutputOutput Total 330 ml 370 ml 350 ml BalanceBalance 20 ml 179.850 ml 107.375 ml Exam General: Patient is laying in bed intubated, no acute distress Eyes: EOMI, pupils reactive to light Neck: Supple, nontender, midline Respiratory: Coarse to auscultation bilaterally Cardiovascular: S1, S2, regular rate and rhythm, no obvious murmurs Gastrointestinal: soft, non-tender to palpation, bowel sounds heard. Skin: No new skin lesions Results Results 24hrs Laboratory Tests Test 05/24/19 17:29 05/24/19 20:24 05/25/19 00:55 05/25/19 03:36 Bedside Glucose 174 204 134 White Blood Count 11.6 H Red Blood Count 3.96 L Hemoglobin 12.3 L Hematocrit 38.6 L Mean Corpuscular 97.5 Volume Mean Corpuscular 31.1 Hemoglobin Mean Corpuscular 31.9 L Hemoglobin Concent Red Cell 14.6 H Distribution Width Platelet Count 218 Mean Platelet Volume 10.6 H Immature 1.200 H Granulocytes % Neutrophils % 91.1 H Lymphocytes % 2.7 L Monocytes % 4.8 Eosinophils % 0.0 Basophils % 0.2 Nucleated Red Blood 0.0 Cells % Immature 0.140 H Granulocytes # Neutrophils # 10.6 H Lymphocytes # 0.3 L Monocytes # 0.6 Eosinophils # 0.0 Basophils # 0.0 Nucleated Red Blood 0.0 Cells # Sodium Level 139 Potassium Level 4.6 Chloride Level 107 Carbon Dioxide Level 28 Anion Gap 4 L Blood Urea Nitrogen 36 H Creatinine 0.60 L Glucose Level 154 Calcium Level 9.3 Phosphorus Level 3.8 Magnesium Level 2.4 Albumin 2.7 L Procalcitonin 0.19 H Test 05/25/19 04:59 05/25/19 09:02 05/25/19 12:39 Bedside Glucose 144 173 135 Medications Medication Current Medications IV Flush (NS 3 ml) 3 ml PER PROTOCOL IV ; Start 05/18/19 at 02:00 Ondansetron HCl (Zofran Inj) 4 mg Q6H PRN IV NAUSEA/VOMITING; Start 05/18/19 at 02:00 Acetaminophen (Tylenol Tab) 650 mg Q6H PRN PO .PAIN 1-3 OR TEMP; Start 05/18/19 at 02:00 Atorvastatin Calcium (Lipitor) 20 mg HS PO Last administered on 05/24/19at 20:27; Admin Dose 20 MG; Start 05/18/19 at 21:00 Albuterol/ Ipratropium (Duoneb) 3 ml Q2H RESP THERAPY PRN HHN wheezing; Start 05/18/19 at 09:30 Fentanyl 100 ml @ 2.5 mls/hr PER PROTOCOL IV Last administered on 05/19/19 06:37; Admin Dose 5 MLS/HR; Start 05/18/19 at 11:00 Hydralazine HCl (Apresoline) 10 mg Q4H PRN IV sbp >160 Last administered on 05/22/19at 09:04; Admin Dose 10 MG; Start 05/18/19 at 11:00 Clopidogrel Bisulfate (plaVIX) 75 mg DAILY GTB Last administered on 05/25/19 08:56; Admin Dose 75 MG; Start 05/18/19 at 11:00 Norepinephrine 250 ml @ 1.875 mls/ hr TITRATE IV Last administered on 05/24/19 17:49; Admin Dose 3.75 MLS/HR; Start 05/18/19 at 16:00 IV Flush (NS 10 ml) 10 ml PRN PRN IV FLUSH LINE; Start 05/18/19 at 17:30 Propofol 100 ml @ 2.055 mls/ hr Q12H IV Last administered on 05/25/19 15:42; Admin Dose 12.33 MLS/HR; Start 05/19/19 at 11:30 Budesonide (Pulmicort (Neb)) 0.5 mg BID RESP THERAPY HHN Last administered on 05/25/19 09:18; Admin Dose 0.5 MG; Start 05/20/19 at 20:00 Lansoprazole (Prevacid) 30 mg DAILY@06 GTB Last administered on 05/25/19 05:00; Admin Dose 30 MG; Start 05/21/19 at 06:00 Midazolam HCl 50 ml @ 1 mls/hr TITRATE IV Last administered on 05/23/19 03:35; Admin Dose 7 MLS/HR; Start 05/21/19 at 15:30 Albuterol (Ventolin Hfa) 4 puff Q6H RESP THERAPY INH Last administered on 05/25/19 13:14; Admin Dose 4 PUFF; Start 05/21/19 at 20:00 Ipratropium [place] (Atrovent Hfa) 4 puff Q6H RESP THERAPY INH Last administered on 05/25/19 13:14; Admin Dose 4 PUFF; Start 05/21/19 at 20:00 Metoprolol Tartrate (Lopressor) 5 mg Q4 PRN IV SBP > 160 Last administered on 05/22/19 01:59; Admin Dose 5 MG; Start 05/22/19 at 02:00 Morphine Sulfate (morphine) 3 mg Q4H PRN IV SEVERE PAIN LEVEL 7-10 Last administered on 05/22/19 01:49; Admin Dose 3 MG; Start 05/22/19 at 02:00 Losartan Potassium (Cozaar) 25 mg BID PO Last administered on 05/25/19 08:57; Admin Dose 25 MG; Start 05/22/19 at 21:00 Amlodipine Besylate (Norvasc) 5 mg BID PO Last administered on 05/25/19 08:58; Admin Dose 5 MG; Start 05/22/19 at 21:00 Insulin Aspart Prota 70%/Aspart 30% (Novolog Mix (70/ 30) Flexpen) 10 unit BID SC Last administered on 7/25/19at 09:08; Admin Dose 10 UNIT; Start 05/23/19 at 21:00 Methylprednisolone Sodium Succinate (Solu-Medrol) 40 mg BID IV Last administered on 05/25/19 09:03; Admin Dose 40 MG; Start 05/23/19 at 21:00 Insulin Aspart (Novolog Insulin Pen) NOVOLOG *MILD* ALGORI... Q4 SC Last administered on 05/25/19 09:08; Admin Dose 1 UNIT; Start 05/23/19 at 17:00 Miscellaneous Information 1 ea NOTE XX ; Start 05/23/19 at 16:00 Glucose (Glutose) 15 gm Q15M PRN PO DECREASED GLUCOSE; Start 05/23/19 at 16:00 Glucose (Glutose) 22.5 gm Q15M PRN PO DECREASED GLUCOSE; Start 05/23/19 at 16:00 Dextrose (D50w Syringe) 25 ml Q15M PRN IV DECREASED GLUCOSE; Start 05/23/19 at 16:00 Dextrose (D50w Syringe) 50 ml Q15M PRN IV DECREASED GLUCOSE; Start 05/23/19 at 16:00 Glucagon (Glucagen) 1 mg Q15M PRN IM DECREASED GLUCOSE; Start 05/23/19 at 16:00 Glucose (Glutose) 15 gm Q15M PRN BUCCAL DECREASED GLUCOSE; Start 05/23/19 at 16:00 SOFIA AYOUB MD May 25, 2019 15:57
--- NOTE | 2019-05-25 16:27 | PN ---
DATE: 05/25/2019 SUBJECTIVE: No acute changes overnight. The patient remains intubated and sedated. Failed weaning this morning. WBC 11.6, platelets 218, neutrophils 91.1, BUN 36, creatinine 0.60. INDWELLINGS: The patient has endotracheal tube, NG tube, Hernández catheter and PICC line. PHYSICAL EXAMINATION: GENERAL: A chronically ill-appearing elderly man who is alert, in no distress. HEENT: Head atraumatic, normocephalic. Sclerae anicteric. Buccal mucosa dry. NECK: Supple. CHEST: Rise symmetrical. Breath sounds clear with scattered crackles to bases. HEART: S1, S2. ABDOMEN: Soft, bowel sounds present. EXTREMITIES: With trace edema. ASSESSMENT: 1. Acute hypoxemic respiratory failure. 2. Resolved sepsis. 3. Chronic obstructive pulmonary disease exacerbation and possible pneumonia. 4. Diabetes. 5. Hypertension. PLAN: The patient remains stable. Antibiotics were discontinued by pulmonary team. Sputum culture pending. Continue present care and reculture p.r.n. Dictated By: KURT SO ORNAMENTAL PAINTER for FROY HURT MD NI/NTS Conf#: [id number] DID#: [id number] CC: KRISTIN BASS MD;*EndCC*
[2019-05-25] MEDS: ATORVASTATIN 20 MG TAB PO SCH (20:43)
[2019-05-26] VITALS (76 sets, daily range): BP systolic 69–201; BP diastolic 40–97; PULSE 58–119; RESP 11–31
[2019-05-26] MEDS: IPRATROPIUM (HFA) 12.9 GM INHALER INH SCH ×4 (01:14→20:00)
[2019-05-26] MEDS: ALBUTEROL HFA 8 GM INHALER INH SCH ×4 (01:14→20:00)
[2019-05-26] MEDS: INSULIN ASPART [NOVOLOG] 3 ML PEN SC SCH ×6 (02:10→21:23)
[2019-05-26] MEDS: LANSOPRAZOLE 30 MG CAP GTB SCH (05:02)
[2019-05-26] MEDS: BUDESONIDE (NEB) 0.5MG/2ML AMP HHN SCH ×2 (08:00→20:07)
--- NOTE | 2019-05-26 08:40 | CONS ---
Assessment/Plan Assessment/Plan Assessment/Plan (Daily) 1. acute hyperrkalemia - resolved 2. Acute kidney injury due to ATN from septic shock + prerenal azotemia - improved 3. acute hypercapnic respiratory failure 2/2 Septic shock and PNA,, intubated on ventilator 4. H/o HTN 5. h/o HL 6. Septic shock due to bilateral PNA 7. Hypotension and Bradycardia - now stable Plan: BUN/Cr 37/0.52- other electrolytes stable , -IV solu-medrol 40mg Q 8 hr pt has intermittent episodes of PAT, non sustained, Cardiology following IV abx Cefepime and Levaquin , Renally dose all abx and monitor electorlytes, ID following amlodipine 5 mg PO BID and losartan 25 mg PO BID- meanwhile use IV hydralazine prn will follow up Consultation Date/Type/Reason Admit Date/Time May 18, 2019 at 00:50 Initial Consult Date 05/18/19 Type of Consult NEPHROLOGY Requesting Provider: VIRGEN MCQUEEN Date/Time of Note DATE: 05/26/19 TIME: 08:39 Exam/Review of Systems Exam Vitals Vital Signs Date Temp Pulse Resp B/P (MAP) Pulse Ox O2 O2 Flow FiO2 Time Delivery Rate 05/26/19 58 18 110/59 100 06:30 (76) 05/26/19 Mechanical 06:00 Ventilator 05/26/19 30 05:05 05/26/19 98.9 04:00 Intake and Output 05/25/19 05/25/19 05/26/19 1515:00 23:00 07:00 IntakeIntake Total 450 ml 541.65 ml 445.76 ml OutputOutput Total 240 ml 350 ml 320 ml BalanceBalance 210 ml 191.65 ml 125.76 ml Exam Constitutional: non-verbal ENMT: intubated Neck: supple, non-tender Respiratory: congested cough, crackles/rales, diminished breath sounds Cardiovascular: regular rate and rhythm Gastrointestinal: soft, non-tender Musculoskeletal: muscle weakness, swelling (1+ edema ) Neurological: other (intubated sedated on ventilator ) Results Result Diagram: 05/26/19 0430 05/26/19 0456 Results 24hrs Laboratory Tests Test 05/25/19 09:02 05/25/19 12:39 05/25/19 17:43 05/25/19 20:48 Bedside Glucose 173 135 184 167 Test 05/26/19 01:54 05/26/19 04:30 05/26/19 04:56 05/26/19 05:04 Bedside Glucose 144 171 White Blood Count 10.8 Red Blood Count 3.70 L Hemoglobin 11.5 L Hematocrit 35.6 L Mean Corpuscular 96.2 Volume Mean Corpuscular 31.1 Hemoglobin Mean Corpuscular 32.3 Hemoglobin Concent Red Cell 14.5 Distribution Width Platelet Count 210 Mean Platelet Volume 10.7 H Immature 1.300 H Granulocytes % Neutrophils % 91.0 H Lymphocytes % 2.7 L Monocytes % 4.7 Eosinophils % 0.1 Basophils % 0.2 Nucleated Red Blood 0.0 Cells % Immature 0.140 H Granulocytes # Neutrophils # 9.8 H Lymphocytes # 0.3 L Monocytes # 0.5 Eosinophils # 0.0 Basophils # 0.0 Nucleated Red Blood 0.0 Cells # Sodium Level 140 Potassium Level 4.8 Chloride Level 106 Carbon Dioxide Level 30 Anion Gap 4 L Blood Urea Nitrogen 37 H Creatinine 0.52 L Glucose Level 169 Calcium Level 8.9 Phosphorus Level 3.5 Magnesium Level 2.4 Albumin 2.5 L Medications Medication Current Medications IV Flush (NS 3 ml) 3 ml PER PROTOCOL IV ; Start 05/18/19 at 02:00 Ondansetron HCl (Zofran Inj) 4 mg Q6H PRN IV NAUSEA/VOMITING; Start 05/18/19 at 02:00 Acetaminophen (Tylenol Tab) 650 mg Q6H PRN PO .PAIN 1-3 OR TEMP; Start 05/18/19 at 02:00 Albuterol/ Ipratropium (Duoneb) 3 ml Q2H RESP THERAPY PRN HHN wheezing; Start 05/18/19 at 09:30 Fentanyl 100 ml @ 2.5 mls/hr PER PROTOCOL IV Last administered on 05/19/19at 06:37; Admin Dose 5 MLS/HR; Start 05/18/19 at 11:00 Hydralazine HCl (Apresoline) 10 mg Q4H PRN IV sbp >160 Last administered on at 09:04; Admin Dose 10 MG; Start 05/18/19 at 11:00 Clopidogrel Bisulfate (plaVIX) 75 mg DAILY GTB Last administered on 05/25/19at 08:56; Admin Dose 75 MG; Start 05/18/19 at 11:00 Norepinephrine 250 ml @ 1.875 mls/ hr TITRATE IV Last administered on 05/24/19 17:49; Admin Dose 3.75 MLS/HR; Start 05/18/19 at 16:00 IV Flush (NS 10 ml) 10 ml PRN PRN IV FLUSH LINE; Start 05/18/19 at 17:30 Propofol 100 ml @ 2.055 mls/ hr Q12H IV Last administered on 05/25/19 22:46; Admin Dose 12.33 MLS/HR; Start 05/19/19 at 11:30 Budesonide (Pulmicort (Neb)) 0.5 mg BID RESP THERAPY HHN Last administered on 05/26/19 08:00; Admin Dose 0.5 MG; Start 05/20/19 at 20:00 Lansoprazole (Prevacid) 30 mg DAILY@06 GTB Last administered on 05/26/19 05:02; Admin Dose 30 MG; Start 05/21/19 at 06:00 Midazolam HCl 50 ml @ 1 mls/hr TITRATE IV Last administered on 05/23/19 03:35; Admin Dose 7 MLS/HR; Start 05/21/19 at 15:30 Albuterol (Ventolin Hfa) 4 puff Q6H RESP THERAPY INH Last administered on 05/26/19 07:56; Admin Dose 4 PUFF; Start 05/21/19 at 20:00 Ipratropium [place] (Atrovent Hfa) 4 puff Q6H RESP THERAPY INH Last administered on 05/26/19 07:56; Admin Dose 4 PUFF; Start 05/21/19 at 20:00 Metoprolol Tartrate (Lopressor) 5 mg Q4 PRN IV SBP > 160 Last administered on 05/22/19 01:59; Admin Dose 5 MG; Start 05/22/19 at 02:00 Morphine Sulfate (morphine) 3 mg Q4H PRN IV SEVERE PAIN LEVEL 7-10 Last administered on 05/22/19 01:49; Admin Dose 3 MG; Start 05/22/19 at 02:00 Insulin Aspart Prota 70%/Aspart 30% (Novolog Mix (70/ 30) Flexpen) 10 unit BID SC Last administered on 7/25/19at 21:03; Admin Dose 10 UNIT; Start 05/23/19 at 21:00 Methylprednisolone Sodium Succinate (Solu-Medrol) 40 mg BID IV Last administered on 05/25/19at 20:50; Admin Dose 40 MG; Start 05/23/19 at 21:00 Insulin Aspart (Novolog Insulin Pen) NOVOLOG *MILD* ALGORI... Q4 SC Last administered on 05/26/19at 05:15; Admin Dose 1 UNIT; Start 05/23/19 at 17:00 Miscellaneous Information 1 ea NOTE XX ; Start 05/23/19 at 16:00 Glucose (Glutose) 15 gm Q15M PRN PO DECREASED GLUCOSE; Start 05/23/19 at 16:00 Glucose (Glutose) 22.5 gm Q15M PRN PO DECREASED GLUCOSE; Start 05/23/19 at 16:00 Dextrose (D50w Syringe) 25 ml Q15M PRN IV DECREASED GLUCOSE; Start 05/23/19 at 16:00 Dextrose (D50w Syringe) 50 ml Q15M PRN IV DECREASED GLUCOSE; Start 05/23/19 at 16:00 Glucagon (Glucagen) 1 mg Q15M PRN IM DECREASED GLUCOSE; Start 05/23/19 at 16:00 Glucose (Glutose) 15 gm Q15M PRN BUCCAL DECREASED GLUCOSE; Start 05/23/19 at 1 6:00 Atorvastatin Calcium (Lipitor) 20 mg HS GTB ; Start 05/26/19 at 21:00 Losartan Potassium (Cozaar) 25 mg BID GTB ; Start 05/26/19 at 09:00 Amlodipine Besylate (Norvasc) 5 mg BID GTB ; Start 05/26/19 at 09:00 EDGARD CLARKE MD May 26, 2019 08:39
--- NOTE | 2019-05-26 08:58 | CONS ---
Assessment/Plan Assessment/Plan Assessment/Plan (Daily) Chest x-ray from today showing emphysematous changes without any acute infiltrates. Ventilator setting; AC of 18, tidal volume 500, PEEP of 5, 30% FiO2. Patient is on propofol at 30 mics per kilogram per minute. Assessment and recommendations; 1. Patient with history of severe COPD admitted with severe hypercapnic respiratory failure and is failed multiple weaning trials from ventilator. 2. Status post treatment for pneumonia. 3. History of diabetes and hypertension. Hold sedation to assess patient for possible weaning from ventilator. Continue current supportive measures. Prognosis is guarded. Consultation Date/Type/Reason Admit Date/Time May 18, 2019 at 00:50 Initial Consult Date 05/18/19 Type of Consult Pulmonary/critical care Patient is an 84-year-old gentleman who was sent over from [facility] with altered mental status and severe hypoxemia. Upon evaluation patient was found to be in severe hypercapnic respiratory failure with pneumonia. Patient was intubated. By the time I saw him in ER, patient is orally intubated and is currently under paralytic and sedative effect. Patient however did not appear to be in any distress. History has been obtained from medical records. Past medical history; 1. Apparently advanced COPD. 2. Dementia. But the patient according to medical records is ambulatory and is usually awake and alert. Medications; reviewed. Allergies; none. Family history; not available. Social history; patient does have history of heavy smoking. Occupational history; not available. Review of system; not able to be obtained. General exam; elderly male, orally intubated, currently sedated. No distress noted. Requesting Provider: VIRGEN MCQUEEN Date/Time of Note DATE: 05/26/19 TIME: 08:56 24 HR Interval Summary Free Text/Dictation Patient's condition is critical. Has failed multiple weaning trials from ventilator. Patient however has remained hemodynamically stable. General exam; elderly male, orally intubated, awake and responsive. Currently no distress. Exam/Review of Systems Exam Vitals Vital Signs Date Temp Pulse Resp B/P (MAP) Pulse Ox O2 O2 Flow FiO2 Time Delivery Rate 05/26/19 58 18 110/59 100 06:30 (76) 05/26/19 Mechanical 06:00 Ventilator 05/26/19 30 05:05 05/26/19 98.9 04:00 Intake and Output 05/25/19 05/25/1919 1515:00 23:00 07:00 IntakeIntake Total 450 ml 541.65 ml 445.76 ml OutputOutput Total 240 ml 350 ml 320 ml BalanceBalance 210 ml 191.65 ml 125.76 ml Exam H ENT exam; supple neck, JVD difficult to see because of ross. Orally intubated. Patient is edentulous. No neck masses. Pupils are small bilateral ly. Chest exam; diminished breath sounds bilaterally. No added sounds. S1-S2 audible, no murmurs. Regular rhythm. Abdomen exam; soft, nontender. No organomegaly. Bowel sounds audible. Extremity exam; no peripheral edema clubbing. Pulses 1+. 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 Results Result Diagram: 05/26/19 0430 05/26/19 0456 Results 24hrs Laboratory Tests Test 05/25/19 09:02 05/25/19 12:39 05/25/19 17:43 05/25/19 20:48 Bedside Glucose 173 135 184 167 Test 05/26/19 01:54 05/26/19 04:30 05/26/19 04:56 05/26/19 05:04 Bedside Glucose 144 171 White Blood Count 10.8 Red Blood Count 3.70 L Hemoglobin 11.5 L Hematocrit 35.6 L Mean Corpuscular 96.2 Volume Mean Corpuscular 31.1 Hemoglobin Mean Corpuscular 32.3 Hemoglobin Concent Red Cell 14.5 Distribution Width Platelet Count 210 Mean Platelet Volume 10.7 H Immature 1.300 H Granulocytes % Neutrophils % 91.0 H Lymphocytes % 2.7 L Monocytes % 4.7 Eosinophils % 0.1 Basophils % 0.2 Nucleated Red Blood 0.0 Cells % Immature 0.140 H Granulocytes # Neutrophils # 9.8 H Lymphocytes # 0.3 L Monocytes # 0.5 Eosinophils # 0.0 Basophils # 0.0 Nucleated Red Blood 0.0 Cells # Sodium Level 140 Potassium Level 4.8 Chloride Level 106 Carbon Dioxide Level 30 Anion Gap 4 L Blood Urea Nitrogen 37 H Creatinine 0.52 L Glucose Level 169 Calcium Level 8.9 Phosphorus Level 3.5 Magnesium Level 2.4 Albumin 2.5 L Medications Medication Current Medications IV Flush (NS 3 ml) 3 ml PER PROTOCOL IV ; Start 05/18/19 at 02:00 Ondansetron HCl (Zofran Inj) 4 mg Q6H PRN IV NAUSEA/VOMITING; Start 05/18/19 at 02:00 Acetaminophen (Tylenol Tab) 650 mg Q6H PRN PO .PAIN 1-3 OR TEMP; Start 05/18/19 at 02:00 Albuterol/ Ipratropium (Duoneb) 3 ml Q2H RESP THERAPY PRN HHN wheezing; Start 05/18/19 at 09:30 Fentanyl 100 ml @ 2.5 mls/hr PER PROTOCOL IV Last administered on 05/19/19 06:37; Admin Dose 5 MLS/HR; Start 05/18/19 at 11:00 Hydralazine HCl (Apresoline) 10 mg Q4H PRN IV sbp >160 Last administered on 05/22/19 09:04; Admin Dose 10 MG; Start 05/18/19 at 11:00 Clopidogrel Bisulfate (plaVIX) 75 mg DAILY GTB Last administered on 05/25/19at 0 8:56; Admin Dose 75 MG; Start 05/18/19 at 11:00 Norepinephrine 250 ml @ 1.875 mls/ hr TITRATE IV Last administered on 05/24/19 17:49; Admin Dose 3.75 MLS/HR; Start 05/18/19 at 16:00 IV Flush (NS 10 ml) 10 ml PRN PRN IV FLUSH LINE; Start 05/18/19 at 17:30 Propofol 100 ml @ 2.055 mls/ hr Q12H IV Last administered on 05/25/19 22:46; Admin Dose 12.33 MLS/HR; Start 05/19/19 at 11:30 Budesonide (Pulmicort (Neb)) 0.5 mg BID RESP THERAPY HHN Last administered on 05/26/19 08:00; Admin Dose 0.5 MG; Start 05/20/19 at 20:00 Lansoprazole (Prevacid) 30 mg DAILY@06 GTB Last administered on 05/26/19 05:02; Admin Dose 30 MG; Start 05/21/19 at 06:00 Midazolam HCl 50 ml @ 1 mls/hr TITRATE IV Last administered on 05/23/19 03:35; Admin Dose 7 MLS/HR; Start 05/21/19 at 15:30 Albuterol (Ventolin Hfa) 4 puff Q6H RESP THERAPY INH Last administered on 05/26/19at 07:56; Admin Dose 4 PUFF; Start 05/21/19 at 20:00 Ipratropium [place] (Atrovent Hfa) 4 puff Q6H RESP THERAPY INH Last administered on 05/26/19at 07:56; Admin Dose 4 PUFF; Start 05/21/19 at 20:00 Metoprolol Tartrate (Lopressor) 5 mg Q4 PRN IV SBP > 160 Last administered on 05/22/19at 01:59; Admin Dose 5 MG; Start 05/22/19 at 02:00 Morphine Sulfate (morphine) 3 mg Q4H PRN IV SEVERE PAIN LEVEL 7-10 Last administered on 05/22/19at 01:49; Admin Dose 3 MG; Start 05/22/19 at 02:00 Insulin Aspart Prota 70%/Aspart 30% (Novolog Mix (70/ 30) Flexpen) 10 unit BID SC Last administered on 05/25/19at 21:03; Admin Dose 10 UNIT; Start 05/23/19 at 21:00 Methylprednisolone Sodium Succinate (Solu-Medrol) 40 mg BID IV Last administered on 05/25/19at 20:50; Admin Dose 40 MG; Start 05/23/19 at 21:00 Insulin Aspart (Novolog Insulin Pen) NOVOLOG *MILD* ALGORI... Q4 SC Last administered on 05/26/19at 05:15; Admin Dose 1 UNIT; Start 05/23/19 at 17:00 Miscellaneous Information 1 ea NOTE XX ; Start 05/23/19 at 16:00 Glucose (Glutose) 15 gm Q15M PRN PO DECREASED GLUCOSE; Start 05/23/19 at 16:00 Glucose (Glutose) 22.5 gm Q15M PRN PO DECREASED GLUCOSE; Start 05/23/19 at 16:00 Dextrose (D50w Syringe) 25 ml Q15M PRN IV DECREASED GLUCOSE; Start 05/23/19 at 16:00 Dextrose (D50w Syringe) 50 ml Q15M PRN IV DECREASED GLUCOSE; Start 05/23/19 at 16:00 Glucagon (Glucagen) 1 mg Q15M PRN IM DECREASED GLUCOSE; Start 05/23/19 at 16:00 Glucose (Glutose) 15 gm Q15M PRN BUCCAL DECREASED GLUCOSE; Start 05/23/19 at 16:00 Atorvastatin Calcium (Lipitor) 20 mg HS GTB ; Start 05/26/19 at 21:00 Losartan Potassium (Cozaar) 25 mg BID GTB ; Start 05/26/19 at 09:00 Amlodipine Besylate (Norvasc) 5 mg BID GTB ; Start 05/26/19 at 09:00 JUAN F MATA May 26, 2019 08:58
[2019-05-26] MEDS ORDERED: AMLODIPINE 5 MG TAB GTB SCH (09:00)
[2019-05-26] MEDS: METHYLPREDNISOLONE 40 MG INJ IV SCH ×2 (09:00→21:15)
[2019-05-26] MEDS: INSULIN ASP PROT/ASPART (70/30) PEN SC SCH ×2 (09:03→21:20)
[2019-05-26] MEDS: LOSARTAN 25 MG TAB GTB SCH ×2 (09:05→21:14)
[2019-05-26] MEDS: CLOPIDOGREL 75 MG TAB GTB SCH (09:05)
[2019-05-26] MEDS: PROPOFOL 100 ML IV SCH ×2 (11:30→21:36)
[2019-05-26] MEDS ORDERED: FLUCONAZOLE 100 MG TAB PO SCH (13:30)
[2019-05-26] MEDS: FLUCONAZOLE 100 MG TAB GTB SCH (13:42)
--- NOTE | 2019-05-26 13:56 | CONS ---
Assessment/Plan Assessment/Plan Hospital Course (Demo Recall) Late entry 05/25/2016 at 4:10 PM Respiratory failure, status post intubation Hypertension with labile blood pressure Encephalopathy Preserved left ventricular ejection fraction COPD Acute kidney injury Blood pressure labile, holding parameters on antihypertensives Antibiotics as per primary team Vent management as per pulmonary Consultation Date/Type/Reason Admit Date/Time May 18, 2019 at 00:50 Initial Consult Date 05/18/19 Type of Consult Cardiology Requesting Provider: VIRGEN MCQUEEN Date/Time of Note DATE: 05/25/19 TIME: 13:54 24 HR Interval Summary Free Text/Dictation Remains intubated and sedated Exam/Review of Systems Vital Signs Vitals Vital Signs Date Temp Pulse Resp B/P (MAP) Pulse Ox O2 O2 Flow FiO2 Time Delivery Rate 05/26/19 63 24 97 24 13:19 05/26/19 110/59 06:30 (76) 05/26/19 Mechanical 06:00 Ventilator 05/26/19 98.9 04:00 Intake and Output 05/25/19 05/25/19 05/26/19 1515:00 23:00 07:00 IntakeIntake Total 450 ml 541.65 ml 445.76 ml OutputOutput Total 240 ml 350 ml 320 ml BalanceBalance 210 ml 191.65 ml 125.76 ml Exam Exam Intubated and sedated Head: normocephalic ENMT: intubated Respiratory: other (Coarse breath sounds bilaterally, no wheezing) Cardiovascular: regular rate and rhythm (S1-S2 heard) Gastrointestinal: soft, non-tender, bowel sounds Extremities: edema (Trace) Labs Result Diagram: 05/26/19 0430 05/26/19 0456 Results 24hrs Laboratory Tests Test 05/25/19 17:43 05/25/19 20:48 05/26/19 01:54 05/26/19 04:30 Bedside Glucose 184 167 144 White Blood Count 10.8 Red Blood Count 3.70 L Hemoglobin 11.5 L Hematocrit 35.6 L Mean Corpuscular 96.2 Volume Mean Corpuscular 31.1 Hemoglobin Mean Corpuscular 32.3 Hemoglobin Concen t Red Cell 14.5 Distribution Width Platelet Count 210 Mean Platelet 10.7 H Volume Immature 1.300 H Granulocytes % Neutrophils % 91.0 H Lymphocytes % 2.7 L Monocytes % 4.7 Eosinophils % 0.1 Basophils % 0.2 Nucleated Red 0.0 Blood Cells % Immature 0.140 H Granulocytes # Neutrophils # 9.8 H Lymphocytes # 0.3 L Monocytes # 0.5 Eosinophils # 0.0 Basophils # 0.0 Nucleated Red 0.0 Blood Cells # Test 05/26/19 04:56 05/26/19 05:04 05/26/19 09:02 05/26/19 10:30 Sodium Level 140 Potassium Level 4.8 Chloride Level 106 Carbon Dioxide 30 Level Anion Gap 4 L Blood Urea 37 H Nitrogen Creatinine 0.52 L Glucose Level 169 Calcium Level 8.9 Phosphorus Level 3.5 Magnesium Level 2.4 Albumin 2.5 L Bedside Glucose 171 148 Blood Gas Blood arterial Specimen Source Arterial Blood 05/26/2019 10:40: Date Drawn 43 AM Arterial Blood pH 7.290 *L (Temp corrected) Arterial Blood 62.8 H pCO2 (Temp correct) Arterial Blood 81.6 pO2 (Temp corrected) Arterial Blood 29.5 H HCO3 Arterial Blood 1.2 Base Excess Arterial Blood 94.0 L Oxygen Saturation Joe Test ACCEPTAB Arterial Blood Right Radial Gas Puncture Site Arterial 0.2 Blood Carboxyhemo globin Arterial Blood 0.4 Methemoglobin Blood Gas A-a O2 58.5 H Differential Oxyhemoglobin 93.4 Percent Blood Gas 37.0 Temperature Blood Gas Actual 36 Respiration Rate Blood Gas VENT - CPAP Modality FiO2 30.0 Blood Gas Low 5.0 PEEP Setting Blood Gas 10 Pressure Support Blood Gas JBOWLES RN Critical Value Read Back Blood Gas TM Notified Whom Blood Gas 05/26/2019 10:47: Notified Time 29 AM Test 05/26/19 13:30 Bedside Glucose 94 Medications Medications Current Medications IV Flush (NS 3 ml) 3 ml PER PROTOCOL IV ; Start 05/18/19 at 02:00 Ondansetron HCl (Zofran Inj) 4 mg Q6H PRN IV NAUSEA/VOMITING; Start 05/18/19 at 02:00 Acetaminophen (Tylenol Tab) 650 mg Q6H PRN PO .PAIN 1-3 OR TEMP; Start 05/18/19 at 02:00 Albuterol/ Ipratropium (Duoneb) 3 ml Q2H RESP THERAPY PRN HHN wheezing; Start 05/18/19 at 09:30 Fentanyl 100 ml @ 2.5 mls/hr PER PROTOCOL IV Last administered on 05/19/19at 06:37; Admin Dose 5 MLS/HR; Start 05/18/19 at 11:00 Hydralazine HCl (Apresoline) 10 mg Q4H PRN IV sbp >160 Last administered on 05/22/19 09:04; Admin Dose 10 MG; Start 05/18/19 at 11:00 Clopidogrel Bisulfate (plaVIX) 75 mg DAILY GTB Last administered on 05/26/19 09:05; Admin Dose 75 MG; Start 05/18/19 at 11:00 Norepinephrine 250 ml @ 1.875 mls/ hr TITRATE IV Last administered on 05/24/19 17:49; Admin Dose 3.75 MLS/HR; Start 05/18/19 at 16:00 IV Flush (NS 10 ml) 10 ml PRN PRN IV FLUSH LINE; Start 05/18/19 at 17:30 Propofol 100 ml @ 2.055 mls/ hr Q12H IV Last administered on 05/26/19 11:30; Admin Dose 12.33 MLS/HR; Start 05/19/19 at 11:30 Budesonide (Pulmicort (Neb)) 0.5 mg BID RESP THERAPY HHN Last administered on 05/26/19 08:00; Admin Dose 0.5 MG; Start 05/20/19 at 20:00 Lansoprazole (Prevacid) 30 mg DAILY@06 GTB Last administered on 05/26/19 05:02; Admin Dose 30 MG; Start 05/21/19 at 06:00 Midazolam HCl 50 ml @ 1 mls/hr TITRATE IV Last administered on 05/23/19 03:35; Admin Dose 7 MLS/HR; Start 05/21/19 at 15:30 Albuterol (Ventolin Hfa) 4 puff Q6H RESP THERAPY INH Last administered on 05/26/19 13:23; Admin Dose 4 PUFF; Start 05/21/19 at 20:00 Ipratropium [place] (Atrovent Hfa) 4 puff Q6H RESP THERAPY INH Last administered on 05/26/19 13:23; Admin Dose 4 PUFF; Start 05/21/19 at 20:00 Metoprolol Tartrate (Lopressor) 5 mg Q4 PRN IV SBP > 160 Last administered on 05/22/19 01:59; Admin Dose 5 MG; Start 05/22/19 at 02:00 Morphine Sulfate (morphine) 3 mg Q4H PRN IV SEVERE PAIN LEVEL 7-10 Last administered on 05/22/19at 01:49; Admin Dose 3 MG; Start 05/22/19 at 02:00 Insulin Aspart Prota 70%/Aspart 30% (Novolog Mix (70/ 30) Flexpen) 10 unit BID SC Last administered on 05/26/19at 09:03; Admin Dose 10 UNIT; Start 05/23/19 at 21:00 Methylprednisolone Sodium Succinate (Solu-Medrol) 40 mg BID IV Last administered on 05/26/19at 09:00; Admin Dose 40 MG; Start 05/23/19 at 21:00 Insulin Aspart (Novolog Insulin Pen) NOVOLOG *MILD* ALGORI... Q4 SC Last admin istered on 05/26/19at 09:04; Admin Dose 1 UNIT; Start 05/23/19 at 17:00 Miscellaneous Information 1 ea NOTE XX ; Start 05/23/19 at 16:00 Glucose (Glutose) 15 gm Q15M PRN PO DECREASED GLUCOSE; Start 05/23/19 at 16:00 Glucose (Glutose) 22.5 gm Q15M PRN PO DECREASED GLUCOSE; Start 05/23/19 at 16:00 Dextrose (D50w Syringe) 25 ml Q15M PRN IV DECREASED GLUCOSE; Start 05/23/19 at 16:00 Dextrose (D50w Syringe) 50 ml Q15M PRN IV DECREASED GLUCOSE; Start 05/23/19 at 16:00 Glucagon (Glucagen) 1 mg Q15M PRN IM DECREASED GLUCOSE; Start 05/23/19 at 16:00 Glucose (Glutose) 15 gm Q15M PRN BUCCAL DECREASED GLUCOSE; Start 05/23/19 at 16:00 Atorvastatin Calcium (Lipitor) 20 mg HS GTB ; Start 05/26/19 at 21:00 Losartan Potassium (Cozaar) 25 mg BID GTB Last administered on 05/26/19at 09:05; Admin Dose 25 MG; Start 05/26/19 at 09:00 Amlodipine Besylate (Norvasc) 5 mg BID GTB Last administered on 05/26/19at 09:06; Admin Dose 5 MG; Start 05/26/19 at 09:00 Fluconazole (Diflucan) 100 mg DAILY GTB Last administered on 05/26/19at 13:42; Admin Dose 100 MG; Start 05/26/19 at 13:30 Bao Garza DO May 26, 2019 13:56
--- NOTE | 2019-05-26 13:58 | CONS ---
Assessment/Plan Assessment/Plan Hospital Course (Demo Recall) Respiratory failure, status post intubation History of hypertension with labile blood pressure currently Encephalopathy Preserved left ventricular ejection fraction COPD Acute kidney injury Blood pressure remains labile, on IV sedatives is likely contributing factor. Decrease amlodipine to daily. Holding parameters on antihypertensives Antibiotics as per primary team Vent management as per pulmonary Consultation Date/Type/Reason Admit Date/Time May 18, 2019 at 00:50 Initial Consult Date 05/18/19 Type of Consult Cardiology Requesting Provider: VIRGEN MCQUEEN Date/Time of Note DATE: 05/26/19 TIME: 13:56 24 HR Interval Summary Free Text/Dictation Attempted weaning this morning with tachypnea and agitation Exam/Review of Systems Vital Signs Vitals Vital Signs Date Temp Pulse Resp B/P (MAP) Pulse Ox O2 O2 Flow FiO2 Time Delivery Rate 05/26/19 63 24 97 24 13:19 05/26/19 110/59 06:30 (76) 05/26/19 Mechanical 06:00 Ventilator 05/26/19 98.9 04:00 Intake and Output 05/25/19 05/25/19 05/26/19 1515:00 23:00 07:00 IntakeIntake Total 450 ml 541.65 ml 445.76 ml OutputOutput Total 240 ml 350 ml 320 ml BalanceBalance 210 ml 191.65 ml 125.76 ml Exam Exam Intubated and sedated, no apparent distress, in restraints Head: normocephalic ENMT: intubated Respiratory: other (Coarse breath sounds bilaterally, no wheezing) Cardiovascular: regular rate and rhythm (S1-S2 heard) Gastrointestinal: soft, non-tender, bowel sounds Extremities: edema (Trace) Labs Result Diagram: 05/26/19 0430 05/26/19 0456 Results 24hrs Laboratory Tests Test 05/25/19 17:43 05/25/19 20:48 05/26/19 01:54 05/26/19 04:30 Bedside Glucose 184 167 144 White Blood Count 10.8 Red Blood Count 3.70 L Hemoglobin 11.5 L Hematocrit 35.6 L Mean Corpuscular 96.2 Volume Mean Corpuscular 31.1 Hemoglobin Mean Corpuscular 32.3 Hemoglobin Concen t Red Cell 14.5 Distribution Width Platelet Count 210 Mean Platelet 10.7 H Volume Immature 1.300 H Granulocytes % Neutrophils % 91.0 H Lymphocytes % 2.7 L Monocytes % 4.7 Eosinophils % 0.1 Basophils % 0.2 Nucleated Red 0.0 Blood Cells % Immature 0.140 H Granulocytes # Neutrophils # 9.8 H Lymphocytes # 0.3 L Monocytes # 0.5 Eosinophils # 0.0 Basophils # 0.0 Nucleated Red 0.0 Blood Cells # Test 05/26/19 04:56 05/26/19 05:04 05/26/19 09:02 05/26/19 10:30 Sodium Level 140 Potassium Level 4.8 Chloride Level 106 Carbon Dioxide 30 Level Anion Gap 4 L Blood Urea 37 H Nitrogen Creatinine 0.52 L Glucose Level 169 Calcium Level 8.9 Phosphorus Level 3.5 Magnesium Level 2.4 Albumin 2.5 L Bedside Glucose 171 148 Blood Gas Blood arterial Specimen Source Arterial Blood 05/26/2019 10:40: Date Drawn 43 AM Arterial Blood pH 7.290 *L (Temp corrected) Arterial Blood 62.8 H pCO2 (Temp correct) Arterial Blood 81.6 pO2 (Temp corrected) Arterial Blood 29.5 H HCO3 Arterial Blood 1.2 Base Excess Arterial Blood 94.0 L Oxygen Saturation Joe Test ACCEPTAB Arterial Blood Right Radial Gas Puncture Site Arterial 0.2 Blood Carboxyhemo globin Arterial Blood 0.4 Methemoglobin Blood Gas A-a O2 58.5 H Differential Oxyhemoglobin 93.4 Percent Blood Gas 37.0 Temperature Blood Gas Actual 36 Respiration Rate Blood Gas VENT - CPAP Modality FiO2 30.0 Blood Gas Low 5.0 PEEP Setting Blood Gas 10 Pressure Support Blood Gas JBOWLES RN Critical Value Read Back Blood Gas TM Notified Whom Blood Gas 05/26/2019 10:47: Notified Time 29 AM Test 05/26/19 13:30 Bedside Glucose 94 Medications Medications Current Medications IV Flush (NS 3 ml) 3 ml PER PROTOCOL IV ; Start 05/18/19 at 02:00 Ondansetron HCl (Zofran Inj) 4 mg Q6H PRN IV NAUSEA/VOMITING; Start 05/18/19 at 02:00 Acetaminophen (Tylenol Tab) 650 mg Q6H PRN PO .PAIN 1-3 OR TEMP; Start 05/18/19 at 02:00 Albuterol/ Ipratropium (Duoneb) 3 ml Q2H RESP THERAPY PRN HHN wheezing; Start 05/18/19 at 09:30 Fentanyl 100 ml @ 2.5 mls/hr PER PROTOCOL IV Last administered on 05/19/19 06:37; Admin Dose 5 MLS/HR; Start 05/18/19 at 11:00 Hydralazine HCl (Apresoline) 10 mg Q4H PRN IV sbp >160 Last administered on 05/22/19 09:04; Admin Dose 10 MG; Start 05/18/19 at 11:00 Clopidogrel Bisulfate (plaVIX) 75 mg DAILY GTB Last administered on 05/26/19 09:05; Admin Dose 75 MG; Start 05/18/19 at 11:00 Norepinephrine 250 ml @ 1.875 mls/ hr TITRATE IV Last administered on 05/24/19 17:49; Admin Dose 3.75 MLS/HR; Start 05/18/19 at 16:00 IV Flush (NS 10 ml) 10 ml PRN PRN IV FLUSH LINE; Start 05/18/19 at 17:30 Propofol 100 ml @ 2.055 mls/ hr Q12H IV Last administered on 05/26/19 11:30; Admin Dose 12.33 MLS/HR; Start 05/19/19 at 11:30 Budesonide (Pulmicort (Neb)) 0.5 mg BID RESP THERAPY HHN Last administered on 05/26/19 08:00; Admin Dose 0.5 MG; Start 05/20/19 at 20:00 Lansoprazole (Prevacid) 30 mg DAILY@06 GTB Last administered on 05/26/19 05:02; Admin Dose 30 MG; Start 05/21/19 at 06:00 Midazolam HCl 50 ml @ 1 mls/hr TITRATE IV Last administered on 05/23/19 03:35; Admin Dose 7 MLS/HR; Start 05/21/19 at 15:30 Albuterol (Ventolin Hfa) 4 puff Q6H RESP THERAPY INH Last administered on 05/26/19 13:23; Admin Dose 4 PUFF; Start 05/21/19 at 20:00 Ipratropium [place] (Atrovent Hfa) 4 puff Q6H RESP THERAPY INH Last admini stered on 05/26/19 13:23; Admin Dose 4 PUFF; Start 05/21/19 at 20:00 Metoprolol Tartrate (Lopressor) 5 mg Q4 PRN IV SBP > 160 Last administered on 05/22/19at 01:59; Admin Dose 5 MG; Start 05/22/19 at 02:00 Morphine Sulfate (morphine) 3 mg Q4H PRN IV SEVERE PAIN LEVEL 7-10 Last administered on 05/22/19at 01:49; Admin Dose 3 MG; Start 05/22/19 at 02:00 Insulin Aspart Prota 70%/Aspart 30% (Novolog Mix (70/ 30) Flexpen) 10 unit BID SC Last administered on 05/26/19at 09:03; Admin Dose 10 UNIT; Start 05/23/19 at 21:00 Methylprednisolone Sodium Succinate (Solu-Medrol) 40 mg BID IV Last administered on 05/26/19 09:00; Admin Dose 40 MG; Start 05/23/19 at 21:00 Insulin Aspart (Novolog Insulin Pen) NOVOLOG *MILD* ALGORI... Q4 SC Last administered on 05/26/19at 09:04; Admin Dose 1 UNIT; Start 05/23/19 at 17:00 Miscellaneous Information 1 ea NOTE XX ; Start 05/23/19 at 16:00 Glucose (Glutose) 15 gm Q15M PRN PO DECREASED GLUCOSE; Start 05/23/19 at 16:00 Glucose (Glutose) 22.5 gm Q15M PRN PO DECREASED GLUCOSE; Start 05/23/19 at 16:00 Dextrose (D50w Syringe) 25 ml Q15M PRN IV DECREASED GLUCOSE; Start 05/23/19 at 16:00 Dextrose (D50w Syringe) 50 ml Q15M PRN IV DECREASED GLUCOSE; Start 05/23/19 at 16:00 Glucagon (Glucagen) 1 mg Q15M PRN IM DECREASED GLUCOSE; Start 05/23/19 at 16:00 Glucose (Glutose) 15 gm Q15M PRN BUCCAL DECREASED GLUCOSE; Start 05/23/19 at 16:00 Atorvastatin Calcium (Lipitor) 20 mg HS GTB ; Start 05/26/19 at 21:00 Losartan Potassium (Cozaar) 25 mg BID GTB Last administered on 05/26/19at 09:05; Admin Dose 25 MG; Start 05/26/19 at 09:00 Amlodipine Besylate (Norvasc) 5 mg BID GTB Last administered on 05/26/19at 09:06; Admin Dose 5 MG; Start 05/26/19 at 09:00 Fluconazole (Diflucan) 100 mg DAILY GTB Last administered on 05/26/19at 13:42; Admin Dose 100 MG; Start 05/26/19 at 13:30 Bao Garza DO May 26, 2019 13:58
--- NOTE | 2019-05-26 14:50 | PN ---
DATE: 05/26/2019 SUBJECTIVE: Patient failed weaning trials again. He is noncommunicative, in no distress. Off antib iotics day #2. WBC 10.8, neutrophils 91, BUN 37, creatinine 0.52. Sputum culture growing scant growth of [place] albicans. INDWELLINGS: Endotracheal tube, NG tube, Hernández catheter, PICC line. DIAGNOSTICS: Chest x-ray this morning revealed unchanged bibasilar interstitial infiltrates. PHYSICAL EXAMINATION: GENERAL: Well-developed elderly man who is intubated and sedated, in no distress. HEENT: Head atraumatic, normocephalic. Sclerae anicteric. Buccal mucosa dry. NECK: Supple. CHEST: Rise symmetrical. Breath sounds diminished to bases. HEART: S1, S2. ABDOMEN: Soft, bowel sounds present. ASSESSMENT: 1. Acute hypoxemic respiratory failure. 2. Status post pneumonia. 3. Chronic obstructive pulmonary disease. 4. Diabetes. 5. Hypertension. PLAN: The patient remains hemodynamically stable. We will add fluconazole to the regimen. Continue weaning trials as per pulmonary. Dictated By: KURT SO FREIGHT WEIGHER for FROY HURT MD NI/NTS Conf#: [id number] DID#: [id number] CC: KRISTIN BASS MD;*EndCC*
--- NOTE | 2019-05-26 15:50 | PN ---
Date/Time of Note Date/Time of Note DATE: 05/26/19 TIME: 15:43 Assessment/Plan VTE Prophylaxis Risk score (from Ns)>0 risk: 9 SCD applied (from Ns): Yes Pharmacological prophylaxis: other Lines/Catheters IV Catheter Type (from Nrsg): PICC Line Central line still needed: Yes Urinary Cath still in place: Yes Reason Cath still needed: urinary retention Assessment/Plan Assessment/Plan 1. Acute hypoxic respiratory failure - remains intubated on vent. currently on Propofol and able to answer simple questions - CXR noted - Pulm on board and appreciate recommendations. - Initial CT chest results noted with emphysema and bilateral effusions with atelectasis vs infiltrate 2. COPD exacerbation - currently on steroids and neb tx. will wean steroids 3. Acute encephalopathy - CT head noted, no acute issues - Neurology consultation appreciated 4. Acute kidney injury- resolved - Nephrology consultation appreciated 5. Hypertension - continue home medications. BP remains stable 6. Mild cognitive impairment - Neurology on board - Baseline is alert and oriented x3, with some memory loss 7. Mild carotid stenosis, right ICA - Continue on Plavix and statin 8. Hyperglycemia- resolved - A1c noted - secondary to steroids 9. Arrhythmia - patient had a few seconds of PAT and trigeminy - continue monitoring - electrolytes within normal limits 10. Disposition - Continue management in ICU while requiring mechanical ventilation. continue daily sedation vacations and weaning trials - [place] evaluation once stable for discharge >30 minutes of critical care time spend with patient Result Diagram: 05/26/19 0430 05/26/19 0456 Results 24hrs Laboratory Tests Test 05/25/19 17:43 05/25/19 20:48 05/26/19 01:54 05/26/19 04:30 Bedside Glucose 184 167 144 White Blood Count 10.8 Red Blood Count 3.70 L Hemoglobin 11.5 L Hematocrit 35.6 L Mean Corpuscular 96.2 Volume Mean Corpuscular 31.1 Hemoglobin Mean Corpuscular 32.3 Hemoglobin Concen t Red Cell 14.5 Distribution Width Platelet Count 210 Mean Platelet 10.7 H Volume Immature 1.300 H Granulocytes % Neutrophils % 91.0 H Lymphocytes % 2.7 L Monocytes % 4.7 Eosinophils % 0.1 Basophils % 0.2 Nucleated Red 0.0 Blood Cells % Immature 0.140 H Granulocytes # Neutrophils # 9.8 H Lymphocytes # 0.3 L Monocytes # 0.5 Eosinophils # 0.0 Basophils # 0.0 Nucleated Red 0.0 Blood Cells # Test 05/26/19 04:56 05/26/19 05:04 05/26/19 09:02 05/26/19 10:30 Sodium Level 140 Potassium Level 4.8 Chloride Level 106 Carbon Dioxide 30 Level Anion Gap 4 L Blood Urea 37 H Nitrogen Creatinine 0.52 L Glucose Level 169 Calcium Level 8.9 Phosphorus Level 3.5 Magnesium Level 2.4 Albumin 2.5 L Bedside Glucose 171 148 Blood Gas Blood arterial Specimen Source Arterial Blood 05/26/2019 10:40: Date Drawn 43 AM Arterial Blood pH 7.290 *L (Temp corrected) Arterial Blood 62.8 H pCO2 (Temp correct) Arterial Blood 81.6 pO2 (Temp corrected) Arterial Blood 29.5 H HCO3 Arterial Blood 1.2 Base Excess Arterial Blood 94.0 L Oxygen Saturation Joe Test ACCEPTAB Arterial Blood Right Radial Gas Puncture Site Arterial 0.2 Blood Carboxyhemo globin Arterial Blood 0.4 Methemoglobin Blood Gas A-a O2 58.5 H Differential Oxyhemoglobin 93.4 Percent Blood Gas 37.0 Temperature Blood Gas Actual 36 Respiration Rate Blood Gas VENT - CPAP Modality FiO2 30.0 Blood Gas Low 5.0 PEEP Setting Blood Gas 10 Pressure Support Blood Gas JBOWLES RN Critical Value Read Back Blood Gas TM Notified Whom Blood Gas 05/26/2019 10:47: Notified Time 29 AM Test 05/26/19 13:30 Bedside Glucose 94 Subjective 24 Hr Interval Summary Free Text/Dictation Patient answering questions with head nods and shakes. Did not tolerate CPAP trial this am. Exam/Review of Systems Exam Vitals Vital Signs Date Temp Pulse Resp B/P (MAP) Pulse Ox O2 O2 Flow FiO2 Time Delivery Rate 05/26/19 86 15 161/73 94 Mechanical 15:00 (102) Ventilator 05/26/19 24 13:19 05/26/19 98.7 12:00 Intake and Output 05/25/19 05/25/19 05/26/19 1515:00 23:00 07:00 IntakeIntake Total 450 ml 541.65 ml 445.76 ml OutputOutput Total 240 ml 350 ml 320 ml BalanceBalance 210 ml 191.65 ml 125.76 ml Exam General: Patient is laying in bed intubated, no acute distress Eyes: EOMI, pupils reactive to light Neck: Supple, nontender, midline Respiratory: Coarse to auscultation bilaterally Cardiovascular: S1, S2, regular rate and rhythm, no obvious murmurs Gastrointestinal: soft, non-tender to palpation, bowel sounds heard. Skin: No new skin lesions Results Results 24hrs Laboratory Tests Test 05/25/19 17:43 05/25/19 20:48 05/26/19 01:54 05/26/19 04:30 Bedside Glucose 184 167 144 White Blood Count 10.8 Red Blood Count 3.70 L Hemoglobin 11.5 L Hematocrit 35.6 L Mean Corpuscular 96.2 Volume Mean Corpuscular 31.1 Hemoglobin Mean Corpuscular 32.3 Hemoglobin Concen t Red Cell 14.5 Distribution Width Platelet Count 210 Mean Platelet 10.7 H Volume Immature 1.300 H Granulocytes % Neutrophils % 91.0 H Lymphocytes % 2.7 L Monocytes % 4.7 Eosinophils % 0.1 Basophils % 0.2 Nucleated Red 0.0 Blood Cells % Immature 0.140 H Granulocytes # Neutrophils # 9.8 H Lymphocytes # 0.3 L Monocytes # 0.5 Eosinophils # 0.0 Basophils # 0.0 Nucleated Red 0.0 Blood Cells # Test 05/26/19 04:56 05/26/19 05:04 05/26/19 09:02 05/26/19 10:30 Sodium Level 140 Potassium Level 4.8 Chloride Level 106 Carbon Dioxide 30 Level Anion Gap 4 L Blood Urea 37 H Nitrogen Creatinine 0.52 L Glucose Level 169 Calcium Level 8.9 Phosphorus Level 3.5 Magnesium Level 2.4 Albumin 2.5 L Bedside Glucose 171 148 Blood Gas Blood arterial Specimen Source Arterial Blood 05/26/2019 10:40: Date Drawn 43 AM Arterial Blood pH 7.290 *L (Temp corrected) Arterial Blood 62.8 H pCO2 (Temp correct) Arterial Blood 81.6 pO2 (Temp corrected) Arterial Blood 29.5 H HCO3 Arterial Blood 1.2 Base Excess Arterial Blood 94.0 L Oxygen Saturation Joe Test ACCEPTAB Arterial Blood Right Radial Gas Puncture Site Arterial 0.2 Blood Carboxyhemo globin Arterial Blood 0.4 Methemoglobin Blood Gas A-a O2 58.5 H Differential Oxyhemoglobin 93.4 Percent Blood Gas 37.0 Temperature Blood Gas Actual 36 Respiration Rate Blood Gas VENT - CPAP Modality FiO2 30.0 Blood Gas Low 5.0 PEEP Setting Blood Gas 10 Pressure Support Blood Gas JBOWLES RN Critical Value Read Back Blood Gas TM Notified Whom Blood Gas 05/26/2019 10:47: Notified Time 29 AM Test 05/26/19 13:30 Bedside Glucose 94 Medications Medication Current Medications IV Flush (NS 3 ml) 3 ml PER PROTOCOL IV ; Start 05/18/19 at 02:00 Ondansetron HCl (Zofran Inj) 4 mg Q6H PRN IV NAUSEA/VOMITING; Start 05/18/19 at 02:00 Acetaminophen (Tylenol Tab) 650 mg Q6H PRN PO .PAIN 1-3 OR TEMP; Start 05/18/19 at 02:00 Albuterol/ Ipratropium (Duoneb) 3 ml Q2H RESP THERAPY PRN HHN wheezing; Start 05/18/19 at 09:30 Fentanyl 100 ml @ 2.5 mls/hr PER PROTOCOL IV Last administered on 05/19/19 06:37; Admin Dose 5 MLS/HR; Start 05/18/19 at 11:00 Hydralazine HCl (Apresoline) 10 mg Q4H PRN IV sbp >160 Last administered on 05/22/19at 09:04; Admin Dose 10 MG; Start 05/18/19 at 11:00 Clopidogrel Bisulfate (plaVIX) 75 mg DAILY GTB Last administered on 05/26/19at 09:05; Admin Dose 75 MG; Start 05/18/19 at 11:00 Norepinephrine 250 ml @ 1.875 mls/ hr TITRATE IV Last administered on 05/24/19at 17:49; Admin Dose 3.75 MLS/HR; Start 05/18/19 at 16:00 IV Flush (NS 10 ml) 10 ml PRN PRN IV FLUSH LINE; Start 05/18/19 at 17:30 Propofol 100 ml @ 2.055 mls/ hr Q12H IV Last administered on 05/26/19at 11:30; Admin Dose 12.33 MLS/HR; Start 05/19/19 at 11:30 Budesonide (Pulmicort (Neb)) 0.5 mg BID RESP THERAPY HHN Last administered on 05/26/19at 08:00; Admin Dose 0.5 MG; Start 05/20/19 at 20:00 Lansoprazole (Prevacid) 30 mg DAILY@06 GTB Last administered on 05/26/19 05:02; Admin Dose 30 MG; Start 05/21/19 at 06:00 Midazolam HCl 50 ml @ 1 mls/hr TITRATE IV Last administered on 05/23/19 03:35; Admin Dose 7 MLS/HR; Start 05/21/19 at 15:30 Albuterol (Ventolin Hfa) 4 puff Q6H RESP THERAPY INH Last administered on 13:23; Admin Dose 4 PUFF; Start 05/21/19 at 20:00 Ipratropium [place] (Atrovent Hfa) 4 puff Q6H RESP THERAPY INH Last administered on 05/26/19 13:23; Admin Dose 4 PUFF; Start 05/21/19 at 20:00 Metoprolol Tartrate (Lopressor) 5 mg Q4 PRN IV SBP > 160 Last administered on 05/22/19at 01:59; Admin Dose 5 MG; Start 05/22/19 at 02:00 Morphine Sulfate (morphine) 3 mg Q4H PRN IV SEVERE PAIN LEVEL 7-10 Last administered on 05/22/19at 01:49; Admin Dose 3 MG; Start 05/22/19 at 02:00 Insulin Aspart Prota 70%/Aspart 30% (Novolog Mix (70/ 30) Flexpen) 10 unit BID SC Last administered on 05/26/19 09:03; Admin Dose 10 UNIT; Start 05/23/19 at 21:00 Methylprednisolone Sodium Succinate (Solu-Medrol) 40 mg BID IV Last administered on 05/26/19 09:00; Admin Dose 40 MG; Start 05/23/19 at 21:00 Insulin Aspart (Novolog Insulin Pen) NOVOLOG *MILD* ALGORI... Q4 SC Last administered on 05/26/19 09:04; Admin Dose 1 UNIT; Start 05/23/19 at 17:00 Miscellaneous Information 1 ea NOTE XX ; Start 05/23/19 at 16:00 Glucose (Glutose) 15 gm Q15M PRN PO DECREASED GLUCOSE; Start 05/23/19 at 16:00 Glucose (Glutose) 22.5 gm Q15M PRN PO DECREASED GLUCOSE; Start 05/23/19 at 16:00 Dextrose (D50w Syringe) 25 ml Q15M PRN IV DECREASED GLUCOSE; Start 05/23/19 at 16:00 Dextrose (D50w Syringe) 50 ml Q15M PRN IV DECREASED GLUCOSE; Start 05/23/19 at 16:00 Glucagon (Glucagen) 1 mg Q15M PRN IM DECREASED GLUCOSE; Start 05/23/19 at 16:00 Glucose (Glutose) 15 gm Q15M PRN BUCCAL DECREASED GLUCOSE; Start 05/23/19 at 16:00 Atorvastatin Calcium (Lipitor) 20 mg HS GTB ; Start 05/26/19 at 21:00 Losartan Potassium (Cozaar) 25 mg BID GTB Last administered on 05/26/19at 09:05; Admin Dose 25 MG; Start 05/26/19 at 09:00 Fluconazole (Diflucan) 100 mg DAILY GTB Last administered on 05/26/19at 13:42; Admin Dose 100 MG; Start 05/26/19 at 13:30 Amlodipine Besylate (Norvasc) 5 mg DAILY GTB ; Start 05/27/19 at 09:00 SOFIA AYOUB MD May 26, 2019 15:50
[2019-05-26] MEDS: ATORVASTATIN 20 MG TAB GTB SCH (21:14)
[2019-05-27] VITALS (100 sets, daily range): BP systolic 79–150; BP diastolic 43–73; PULSE 58–82; RESP 12–33
[2019-05-27] MEDS: ALBUTEROL HFA 8 GM INHALER INH SCH ×4 (01:17→19:31)
[2019-05-27] MEDS: IPRATROPIUM (HFA) 12.9 GM INHALER INH SCH ×4 (01:17→19:31)
[2019-05-27] MEDS: INSULIN ASPART [NOVOLOG] 3 ML PEN SC SCH ×6 (01:21→21:59)
[2019-05-27] MEDS: LANSOPRAZOLE 30 MG CAP GTB SCH (05:33)
[2019-05-27] MEDS: PROPOFOL 100 ML IV SCH ×2 (06:48→21:38)
[2019-05-27] MEDS ORDERED: FLUCONAZOLE 100 MG TAB GTB SCH (09:00)
[2019-05-27] MEDS: BUDESONIDE (NEB) 0.5MG/2ML AMP HHN SCH ×2 (09:01→19:31)
--- NOTE | 2019-05-27 09:42 | PN ---
Date/Time of Note Date/Time of Note DATE: 05/27/19 TIME: 09:37 Assessment/Plan VTE Prophylaxis Risk score (from Nsg)>0 risk: 12 SCD applied (from Nsg): Yes Pharmacological prophylaxis: other Lines/Catheters IV Catheter Type (from Nrsg): PICC Line Central line still needed: Yes Urinary Cath still in place: Yes Reason Cath still needed: terminal illness/intractable pain Assessment/Plan Assessment/Plan 1. Acute hypoxic respiratory failure - Per nursing, having difficulty adjusting Propofol given fluctuations in blood pressure - remains intubated on vent support - CXR noted with persistent bilaterally infiltrate and small effusions - Pulm on board and appreciate recommendations. - Initial CT chest results noted with emphysema and bilateral effusions with atelectasis vs infiltrate 2. COPD exacerbation - currently on steroid taper and neb treatments 3. Acute toxic encephalopathy- stable - patient nodding/shaking head appropriately to questions - CT head noted, no acute issues - Neurology consultation appreciated 4. Acute kidney injury- resolved - Nephrology consultation appreciated 5. Hypertension - continue home medications. BP remains stable 6. Mild cognitive impairment - Neurology on board - Baseline is alert and oriented x3, with some memory loss 7. Mild carotid stenosis, right ICA - Continue on Plavix and statin 8. Hyperglycemia- resolved - A1c noted - secondary to steroids 9. Arrhythmia - cardiology aware - continue monitoring - electrolytes within normal limits 10. Disposition - Continue management in ICU while requiring mechanical ventilation. continue daily sedation vacations and weaning trials - [place] evaluation once stable for discharge >30 minutes of critical care time spend with patient Result Diagram: 05/27/19 0440 05/27/19 0440 Results 24hrs Laboratory Tests Test 05/26/19 10:30 05/26/19 13:30 05/26/19 17:45 05/26/19 21:09 Blood Gas Blood arterial Specimen Source Arterial Blood 05/26/2019 10:40: Date Drawn 43 AM Arterial Blood pH 7.290 *L (Temp corrected) Arterial Blood 62.8 H pCO2 (Temp correct) Arterial Blood 81.6 pO2 (Temp corrected) Arterial Blood 29.5 H HCO3 Arterial Blood 1.2 Base Excess Arterial Blood 94.0 L Oxygen Saturation Joe Test ACCEPTAB Arterial Blood Right Radial Gas Puncture Site Arterial 0.2 Blood Carboxyhemo globin Arterial Blood 0.4 Methemoglobin Blood Gas A-a O2 58.5 H Differential Oxyhemoglobin 93.4 Percent Blood Gas 37.0 Temperature Blood Gas Actual 36 Respiration Rate Blood Gas VENT - CPAP Modality FiO2 30.0 Blood Gas Low 5.0 PEEP Setting Blood Gas 10 Pressure Support Blood Gas JOE RAMACHANDRAN Critical Value Read Back Blood Gas TM Notified Whom Blood Gas 05/26/2019 10:47: Notified Time 29 AM Bedside Glucose 94 134 144 Test 05/27/19 01:08 05/27/19 04:22 05/27/19 04:40 Bedside Glucose 144 184 White Blood Count 10.8 Red Blood Count 3.64 L Hemoglobin 11.2 L Hematocrit 35.1 L Mean Corpuscular 96.4 Volume Mean Corpuscular 30.8 Hemoglobin Mean Corpuscular 31.9 L Hemoglobin Concen t Red Cell 14.5 Distribution Width Platelet Count 216 Mean Platelet 10.7 H Volume Immature 1.300 H Granulocytes % Neutrophils % 87.8 H Lymphocytes % 4.8 L Monocytes % 5.9 Eosinophils % 0.1 Basophils % 0.1 Nucleated Red 0.0 Blood Cells % Immature 0.140 H Granulocytes # Neutrophils # 9.5 H Lymphocytes # 0.5 L Monocytes # 0.6 Eosinophils # 0.0 Basophils # 0.0 Nucleated Red 0.0 Blood Cells # Sodium Level 137 Potassium Level 4.1 Chloride Level 105 Carbon Dioxide 31 Level Anion Gap 1 L Blood Urea 36 H Nitrogen Creatinine 0.59 L Glucose Level 175 Calcium Level 8.7 Phosphorus Level 3.1 Magnesium Level 2.4 Albumin 2.4 L Subjective 24 Hr Interval Summary Free Text/Dictation Patient denies any pain or acute issues. remained intubated on propofol but awake and answering questions. Exam/Review of Systems Exam Vitals Vital Signs Date Temp Pulse Resp B/P (MAP) Pulse Ox O2 O2 Flow FiO2 Time Delivery Rate 05/27/19 100 18 30 09:00 05/27/19 95/45 (62) 100 08:30 05/27/19 98.1 Mechanical 08:00 Ventilator Intake and Output 05/26/19 05/26/19 05/27/19 1515:00 23:00 07:00 IntakeIntake Total 484.935 ml 521.514 ml 496.320 ml OutputOutput Total 425 ml 375 ml 300 ml BalanceBalance 59.935 ml 146.514 ml 196.320 ml Exam General: Patient is laying in bed, intubated, no acute distress Eyes: EOMI, pupils reactive to light Neck: Supple, nontender, midline Respiratory: Coarse to auscultation bilaterally. no wheezing Cardiovascular: S1, S2, regular rate and rhythm, no obvious murmurs Gastrointestinal: soft, non-tender to palpation, bowel sounds heard. Skin: No new skin lesions Ext: edema UE and LE bilaterally. no rashes or lesions appreciated Results Results 24hrs Laboratory Tests Test 05/26/19 10:30 05/26/19 13:30 05/26/19 17:45 05/26/19 21:09 Blood Gas Blood arterial Specimen Source Arterial Blood 05/26/2019 10:40: Date Drawn 43 AM Arterial Blood pH 7.290 *L (Temp corrected) Arterial Blood 62.8 H pCO2 (Temp correct) Arterial Blood 81.6 pO2 (Temp corrected) Arterial Blood 29.5 H HCO3 Arterial Blood 1.2 Base Excess Arterial Blood 94.0 L Oxygen Saturation Joe Test ACCEPTAB Arterial Blood Right Radial Gas Puncture Site Arterial 0.2 Blood Carboxyhemo globin Arterial Blood 0.4 Methemoglobin Blood Gas A-a O2 58.5 H Differential Oxyhemoglobin 93.4 Percent Blood Gas 37.0 Temperature Blood Gas Actual 36 Respiration Rate Blood Gas VENT - CPAP Modality FiO2 30.0 Blood Gas Low 5.0 PEEP Setting Blood Gas 10 Pressure Support Blood Gas JBOWLES RN Critical Value Read Back Blood Gas TM Notified Whom Blood Gas 05/26/2019 10:47: Notified Time 29 AM Bedside Glucose 94 134 144 Test 05/27/19 01:08 05/27/19 04:22 05/27/19 04:40 Bedside Glucose 144 184 White Blood Count 10.8 Red Blood Count 3.64 L Hemoglobin 11.2 L Hematocrit 35.1 L Mean Corpuscular 96.4 Volume Mean Corpuscular 30.8 Hemoglobin Mean Corpuscular 31.9 L Hemoglobin Concen t Red Cell 14.5 Distribution Width Platelet Count 216 Mean Platelet 10.7 H Volume Immature 1.300 H Granulocytes % Neutrophils % 87.8 H Lymphocytes % 4.8 L Monocytes % 5.9 Eosinophils % 0.1 Basophils % 0.1 Nucleated Red 0.0 Blood Cells % Immature 0.140 H Granulocytes # Neutrophils # 9.5 H Lymphocytes # 0.5 L Monocytes # 0.6 Eosinophils # 0.0 Basophils # 0.0 Nucleated Red 0.0 Blood Cells # Sodium Level 137 Potassium Level 4.1 Chloride Level 105 Carbon Dioxide 31 Level Anion Gap 1 L Blood Urea 36 H Nitrogen Creatinine 0.59 L Glucose Level 175 Calcium Level 8.7 Phosphorus Level 3.1 Magnesium Level 2.4 Albumin 2.4 L Medications Medication Current Medications IV Flush (NS 3 ml) 3 ml PER PROTOCOL IV ; Start 05/18/19 at 02:00 Ondansetron HCl (Zofran Inj) 4 mg Q6H PRN IV NAUSEA/VOMITING; Start 05/18/19 at 02:00 Acetaminophen (Tylenol Tab) 650 mg Q6H PRN PO .PAIN 1-3 OR TEMP; Start 05/18/19 at 02:00 Albuterol/ Ipratropium (Duoneb) 3 ml Q2H RESP THERAPY PRN HHN wheezing; Start 05/18/19 at 09:30 Fentanyl 100 ml @ 2.5 mls/hr PER PROTOCOL IV Last administered on 05/19/19 06 :37; Admin Dose 5 MLS/HR; Start 05/18/19 at 11:00 Hydralazine HCl (Apresoline) 10 mg Q4H PRN IV sbp >160 Last administered on 05/22/19 09:04; Admin Dose 10 MG; Start 05/18/19 at 11:00 Clopidogrel Bisulfate (plaVIX) 75 mg DAILY GTB Last administered on 05/26/19 09:05; Admin Dose 75 MG; Start 05/18/19 at 11:00 Norepinephrine 250 ml @ 1.875 mls/ hr TITRATE IV Last administered on 05/24/19 17:49; Admin Dose 3.75 MLS/HR; Start 05/18/19 at 16:00 IV Flush (NS 10 ml) 10 ml PRN PRN IV FLUSH LINE; Start 05/18/19 at 17:30 Propofol 100 ml @ 2.055 mls/ hr Q12H IV Last administered on 05/27/19 06:48; Admin Dose 6.165 MLS/HR; Start 05/19/19 at 11:30 Budesonide (Pulmicort (Neb)) 0.5 mg BID RESP THERAPY HHN Last administered on 05/27/19 09:01; Admin Dose 0.5 MG; Start 05/20/19 at 20:00 Lansoprazole (Prevacid) 30 mg DAILY@06 GTB Last administered on 05/27/19 05:33; Admin Dose 30 MG; Start 05/21/19 at 06:00 Midazolam HCl 50 ml @ 1 mls/hr TITRATE IV Last administered on 05/23/19 03:35; Admin Dose 7 MLS/HR; Start 05/21/19 at 15:30 Albuterol (Ventolin Hfa) 4 puff Q6H RESP THERAPY INH Last administered on 05/27/19 07:41; Admin Dose 4 PUFF; Start 05/21/19 at 20:00 Ipratropium [place] (Atrovent Hfa) 4 puff Q6H RESP THERAPY INH Last administered on 05/27/19 07:41; Admin Dose 4 PUFF; Start 05/21/19 at 20:00 Metoprolol Tartrate (Lopressor) 5 mg Q4 PRN IV SBP > 160 Last administered on 05/22/19at 01:59; Admin Dose 5 MG; Start 05/22/19 at 02:00 Morphine Sulfate (morphine) 3 mg Q4H PRN IV SEVERE PAIN LEVEL 7-10 Last administered on 05/22/19at 01:49; Admin Dose 3 MG; Start 05/22/19 at 02:00 Insulin Aspart Prota 70%/Aspart 30% (Novolog Mix (70/ 30) Flexpen) 10 unit BID SC Last administered on 05/26/19at 21:20; Admin Dose 10 UNIT; Start 05/23/19 at 21:00 Methylprednisolone Sodium Succinate (Solu-Medrol) 40 mg BID IV Last administered on 05/26/19at 21:15; Admin Dose 40 MG; Start 05/23/19 at 21:00 Insulin Aspart (Novolog Insulin Pen) NOVOLOG *MILD* ALGORI... Q4 SC Last administered on 05/27/19 04:25; Admin Dose 2 UNIT; Start 05/23/19 at 17:00 Miscellaneous Information 1 ea NOTE XX ; Start 05/23/19 at 16:00 Glucose (Glutose) 15 gm Q15M PRN PO DECREASED GLUCOSE; Start 05/23/19 at 16:00 Glucose (Glutose) 22.5 gm Q15M PRN PO DECREASED GLUCOSE; Start 05/23/19 at 16:00 Dextrose (D50w Syringe) 25 ml Q15M PRN IV DECREASED GLUCOSE; Start 05/23/19 at 16:00 Dextrose (D50w Syringe) 50 ml Q15M PRN IV DECREASED GLUCOSE; Start 05/23/19 at 16:00 Glucagon (Glucagen) 1 mg Q15M PRN IM DECREASED GLUCOSE; Start 05/23/19 at 16:00 Glucose (Glutose) 15 gm Q15M PRN BUCCAL DECREASED GLUCOSE; Start 05/23/19 at 16:00 Atorvastatin Calcium (Lipitor) 20 mg HS GTB Last administered on 05/26/19at 21:14; Admin Dose 20 MG; Start 05/26/19 at 21:00 Losartan Potassium (Cozaar) 25 mg BID GTB Last administered on 05/26/19at 21:14; Admin Dose 25 MG; Start 05/26/19 at 09:00 Fluconazole (Diflucan) 100 mg DAILY GTB Last administered on 05/26/19at 13:42; Admin Dose 100 MG; Start 05/26/19 at 13:30 Amlodipine Besylate (Norvasc) 5 mg DAILY GTB ; Start 05/27/19 at 09:00 SOFIA AYOUB MD May 27, 2019 09:42
[2019-05-27] MEDS: CLOPIDOGREL 75 MG TAB GTB SCH (09:59)
[2019-05-27] MEDS: FLUCONAZOLE 100 MG TAB GTB SCH (09:59)
[2019-05-27] MEDS: LOSARTAN 25 MG TAB GTB SCH ×2 (09:59→21:00)
[2019-05-27] MEDS: METHYLPREDNISOLONE 40 MG INJ IV SCH ×2 (10:00→21:38)
[2019-05-27] MEDS: AMLODIPINE 5 MG TAB GTB SCH (10:00)
[2019-05-27] MEDS: INSULIN ASP PROT/ASPART (70/30) PEN SC SCH ×2 (10:03→21:59)
--- NOTE | 2019-05-27 12:31 | PN ---
DATE: 05/27/2019 INFECTIOUS DISEASE PROGRESS NOTE SUBJECTIVE: No acute changes. The patient remains comfortable on vent. No fevers overnight. WBC 10.8, neutrophils 87.8, BUN 36, creatinine 0.59. MICROBIOLOGY: Sputum culture grew [place] albicans. DIAGNOSTICS: Chest x-ray revealed no changes. ANTIMICROBIALS: The patient is on fluconazole. INDWELLINGS: Endotracheal tube, NG tube, Hernández catheter, PICC line. PHYSICAL EXAMINATION: GENERAL: This is a chronically ill-appearing, elderly man who is intubated and sedated, in no distre ss. HEENT: Head atraumatic, normocephalic. NECK: Supple. Tracheostomy present. CHEST: Rise symmetrical. Breath sounds diminished to bases. HEART: S1, S2. ABDOMEN: Soft. Bowel tones sounds present. ASSESSMENT: 1. Acute hypoxemic respiratory failure. 2. Status post pneumonia. 3. Chronic obstructive pulmonary disease exacerbation. 4. Diabetes. 5. Hypertension. PLAN: The patient remains hemodynamically stable. Continue present care. Vent management per pulcortez conway. The patient failed multiple weaning trials. Dictated By: KURT SO FIELD RESEARCH ASSISTANT for FROY HURT MD NI/NTS Conf#: [id number] DID#: [id number] CC: KRISTIN BASS MD;*End*
--- NOTE | 2019-05-27 13:03 | CONS ---
Consult Date/Type/Reason Admit Date/Time May 18, 2019 at 00:50 Initial Consult Date 05/18/19 Type of Consultation: Pilm/CCM Requesting Provider: VIRGEN MCQUEEN Date/Time of Note DATE: 05/27/19 TIME: 12:56 Subjective Did not tolerate CPAP/PS with increased RR. Objective Vitals Vital Signs Date Temp Pulse Resp B/P (MAP) Pulse Ox O2 O2 Flow FiO2 Time Delivery Rate 05/27/19 75 18 100 30 11:40 05/27/19 140/68 11:15 (92) 05/27/19 Mechanical 11:00 Ventilator 05/27/19 98.1 08:00 Intake and Output 05/26/19 05/26/19 05/27/19 1515:00 23:00 07:00 IntakeIntake Total 484.935 ml 521.514 ml 496.320 ml OutputOutput Total 425 ml 375 ml 300 ml BalanceBalance 59.935 ml 146.514 ml 196.320 ml Exam HEENT: Neck supple; no JVD; no LAD;l + ET tube CVS: RRR, S1 and S2 CHEST: Diminished BS B/L ABD: Soft, NT, + BS EXT: No c/c/e Results/Medications Result Diagram: 05/27/1943905/27/19439 Results 24 hrs Laboratory Tests Test 05/26/19 13:30 05/26/19 17:45 05/26/19 21:09 05/27/19 01:08 Bedside Glucose 94 134 144 144 Test 05/27/19 04:22 05/27/19 04:40 05/27/19 10:01 Bedside Glucose 184 183 White Blood Count 10.8 Red Blood Count 3.64 L Hemoglobin 11.2 L Hematocrit 35.1 L Mean Corpuscular 96.4 Volume Mean Corpuscular 30.8 Hemoglobin Mean Corpuscular 31.9 L Hemoglobin Concent Red Cell 14.5 Distribution Width Platelet Count 216 Mean Platelet Volume 10.7 H Immature 1.300 H Granulocytes % Neutrophils % 87.8 H Lymphocytes % 4.8 L Monocytes % 5.9 Eosinophils % 0.1 Basophils % 0.1 Nucleated Red Blood 0.0 Cells % Immature 0.140 H Granulocytes # Neutrophils # 9.5 H Lymphocytes # 0.5 L Monocytes # 0.6 Eosinophils # 0.0 Basophils # 0.0 Nucleated Red Blood 0.0 Cells # Sodium Level 137 Potassium Level 4.1 Chloride Level 105 Carbon Dioxide Level 31 Anion Gap 1 L Blood Urea Nitrogen 36 H Creatinine 0.59 L Glucose Level 175 Calcium Level 8.7 Phosphorus Level 3.1 Magnesium Level 2.4 Albumin 2.4 L Home Meds Active Scripts Atorvastatin Calcium (Atorvastatin Calcium) 20 Mg Tablet, 20 MG PO HS for 30 Day s, TAB Prov:VIRGEN MCQUEEN 05/16/19 Reported Medications Mineral Oil* (Fleet* Mineral Oil Enema) 133 Ml Oil, [address] Q48H PRN for CONSTIPATION, ENEMA 05/18/19 Bisacodyl* (Dulcolax*) 5 Mg Tablet.dr, 10 MG PO DAILY PRN for CONSTIPATION, TAB 05/18/19 Magnesium Hydroxide* (Milk Of Magnesia*) 400 Mg/5 Ml Oral.susp, 30 ML PO QHS PRN for CONSTIPATION, ML 05/18/19 Docusate Sodium* (Colace*) 100 Mg Capsule, 200 MG PO QHS, #30 CAP 05/18/19 Acetaminophen* (Acetaminophen*) 500 MG Extra Strength Tablet, 1000 MG PO Q6H PRN for MILD PAIN(1-3)OR ELEVATED TEMP, TAB 05/18/19 Acetaminophen* (Tylenol*) 325 Mg Tablet, 650 MG PO Q4H PRN for MILD PAIN LEVEL 1-3, TAB MILD PAIN, LOJA SCALE 1/10 - 3/10, OR FEVER ABOVE 100,(MAX 3 GRAMS PER 24 HOURS) 05/18/19 Acetaminophen* (Tylophen*) 500 Mg Capsule, 1000 MG PO TID PRN for PAIN, TAB 05/18/19 Nitroglycerin* (Nitrostat*) 0.4 Mg Tab.subl, 0.4 MG SL Q5MIN PRN for CHEST PAIN, BOTTLE 05/18/19 Albuterol Sulfate* (Albuterol Sulfate* Neb) 0.083%-3 Ml Neb, 2.5 MG NEB Q4H PRN for SHORTNESS OF BREATH, #30 VIAL 05/18/19 Calcium Carbonate* (Calcium Carbonate*) 600 MG Ca Tab, 500 MG PO QID PRN for GASTROINTESTINAL UPSET, TAB 05/18/19 Ascorbic Acid* (Vitamin C*) 500 Mg Capsule.sa, 500 MG PO DAILY, CAP 05/18/19 Multivitamins* (Theragran*) 1 Tab Tab, 1 TAB PO DAILY, TAB 05/18/19 Cran/Vitc/Mannose/Inulin/Brom (Uti-Stat Liquid) 3,875 Mg/30 Ml Liquid, 3875 MG PO DAILY 05/18/19 Cranberry Extract (Cranberry) 425 Mg Capsule, 425 MG PO DAILY, CAP 05/18/19 Thiamine* (Vitamin B-1*) 100 Mg Tablet, 100 MG PO DAILY, TAB 05/18/19 Fluticasone/Vilanterol (Breo Ellipta 200-25 Mcg INH) 1 Each Blst.w.dev, 1 PUFF INHALATION DAILY, #1 INHALER 05/18/19 Losartan Potassium* (Cozaar*) 25 Mg Tablet, 25 MG PO BID, #60 TAB 05/18/19 Hydrochlorothiazide* (Microzide*) 12.5 Mg Capsule, 12.5 MG PO DAILY, #30 CAP 05/18/19 Amlodipine Besylate* (Norvasc*) 5 Mg Tablet, 5 MG PO DAILY, TAB 05/18/19 Folic Acid* (Folic Acid*) 1 Mg Tablet, 1 MG PO DAILY, TAB 05/18/19 Budesonide-Formoterol Fumarate* (Symbicort*) 160-4.5 Hfa.aer.ad, 1 PUFF INH DAILY 05/10/19 Metoprolol Tartrate* (Lopressor*) 25 Mg Tablet, 1 TAB ORAL BID 05/10/19 Montelukast Sodium* (Montelukast Sodium*) 10 Mg Tablet, 1 TAB ORAL DAILY 05/10/19 Tiotropium [place]* (Spiriva*) 18 Mcg Cap.w.dev, 1 CAP INH DAILY 05/10/19 Medications Current Medications IV Flush (NS 3 ml) 3 ml PER PROTOCOL IV ; Start 05/18/19 at 02:00 Ondansetron HCl (Zofran Inj) 4 mg Q6H PRN IV NAUSEA/VOMITING; Start 05/18/19 at 02:00 Acetaminophen (Tylenol Tab) 650 mg Q6H PRN PO .PAIN 1-3 OR TEMP; Start 05/18/19 at 02:00 Albuterol/ Ipratropium (Duoneb) 3 ml Q2H RESP THERAPY PRN HHN wheezing; Start 05/18/19 at 09:30 Fentanyl 100 ml @ 2.5 mls/hr PER PROTOCOL IV Last administered on 05/19/19 06:37; Admin Dose 5 MLS/HR; Start 05/18/19 at 11:00 Hydralazine HCl (Apresoline) 10 mg Q4H PRN IV sbp >160 Last administered on 05/22/19 09:04; Admin Dose 10 MG; Start 05/18/19 at 11:00 Clopidogrel Bisulfate (plaVIX) 75 mg DAILY GTB Last administered on 05/27/19 09:59; Admin Dose 75 MG; Start 05/18/19 at 11:00 Norepinephrine 250 ml @ 1.875 mls/ hr TITRATE IV Last administered on 05/24/19 17:49; Admin Dose 3.75 MLS/HR; Start 05/18/19 at 16:00 IV Flush (NS 10 ml) 10 ml PRN PRN IV FLUSH LINE; Start 05/18/19 at 17:30 Propofol 100 ml @ 2.055 mls/ hr Q12H IV Last administered on 05/27/19 06:48; Admin Dose 6.165 MLS/HR; Start 05/19/19 at 11:30 Budesonide (Pulmicort (Neb)) 0.5 mg BID RESP THERAPY HHN Last administered on 05/27/19 09:01; Admin Dose 0.5 MG; Start 05/20/19 at 20:00 Lansoprazole (Prevacid) 30 mg DAILY@06 GTB Last administered on 05/27/19 05:33; Admin Dose 30 MG; Start 05/21/19 at 06:00 Midazolam HCl 50 ml @ 1 mls/hr TITRATE IV Last administered on 05/23/19 03:35; Admin Dose 7 MLS/HR; Start 05/21/19 at 15:30 Albuterol (Ventolin Hfa) 4 puff Q6H RESP THERAPY INH Last administered on 05/27/19 07:41; Admin Dose 4 PUFF; Start 05/21/19 at 20:00 Ipratropium [place] (Atrovent Hfa) 4 puff Q6H RESP THERAPY INH Last administered on 05/27/19 07:41; Admin Dose 4 PUFF; Start 05/21/19 at 20:00 Metoprolol Tartrate (Lopressor) 5 mg Q4 PRN IV SBP > 160 Last administered on 05/22/19at 01:59; Admin Dose 5 MG; Start 05/22/19 at 02:00 Morphine Sulfate (morphine) 3 mg Q4H PRN IV SEVERE PAIN LEVEL 7-10 Last administered on 05/22/19at 01:49; Admin Dose 3 MG; Start 05/22/19 at 02:00 Insulin Aspart Prota 70%/Aspart 30% (Novolog Mix (70/ 30) Flexpen) 10 unit BID SC Last administered on 05/27/19at 10:03; Admin Dose 10 UNIT; Start 05/23/19 at 21:00 Methylprednisolone Sodium Succinate (Solu-Medrol) 40 mg BID IV Last administered on 05/27/19at 10:00; Admin Dose 40 MG; Start 05/23/19 at 21:00 Insulin Aspart (Novolog Insulin Pen) NOVOLOG *MILD* ALGORI... Q4 SC Last administered on 05/27/19at 10:05; Admin Dose 2 UNIT; Start 05/23/19 at 17:00 Miscellaneous Information 1 ea NOTE XX ; Start 05/23/19 at 16:00 Glucose (Glutose) 15 gm Q15M PRN PO DECREASED GLUCOSE; Start 05/23/19 at 16:00 Glucose (Glutose) 22.5 gm Q15M PRN PO DECREASED GLUCOSE; Start 05/23/19 at 16:00 Dextrose (D50w Syringe) 25 ml Q15M PRN IV DECREASED GLUCOSE; Start 05/23/19 at 16:00 Dextrose (D50w Syringe) 50 ml Q15M PRN IV DECREASED GLUCOSE; Start 05/23/19 at 16:00 Glucagon (Glucagen) 1 mg Q15M PRN IM DECREASED GLUCOSE; Start 05/23/19 at 16:00 Glucose (Glutose) 15 gm Q15M PRN BUCCAL DECREASED GLUCOSE; Start 05/23/19 at 16:00 Atorvastatin Calcium (Lipitor) 20 mg HS GTB Last administered on 05/26/19at 21:1 4; Admin Dose 20 MG; Start 05/26/19 at 21:00 Losartan Potassium (Cozaar) 25 mg BID GTB Last administered on 05/27/19at 09:59; Admin Dose 25 MG; Start 05/26/19 at 09:00 Fluconazole (Diflucan) 100 mg DAILY GTB Last administered on 05/27/19at 09:59; Admin Dose 100 MG; Start 05/26/19 at 13:30 Amlodipine Besylate (Norvasc) 5 mg DAILY GTB Last administered on 05/27/19at 10:00; Admin Dose 5 MG; Start 05/27/19 at 09:00 Assessment/Plan Assessment/Plan (Daily) IMP: 1. Hypoxemic/Hypercapnic Respiratory Failure 2. COPD Exacerbation 3. WESTLEY--resolved 4. Encephalopathy 5. FEN RECS: 1. Continue BDs 2. Solumedrol IV 3. Continue abx 4. Hold TF after 5 am 5. To CPAP 5 PS 10 in am 6. Will consider extubation to BiPAP tomorrow 35 min cc time TAMI LING MD May 27, 2019 13:03
--- NOTE | 2019-05-27 15:08 | CONS ---
Assessment/Plan Assessment/Plan Assessment/Plan (Daily) 1. acute hyperrkalemia - resolved 2. Acute kidney injury due to ATN from septic shock + prerenal azotemia - improved 3. acute hypercapnic respiratory failure 2/2 Septic shock and PNA,, intubated on ventilator 4. H/o HTN 5. h/o HL 6. Septic shock due to bilateral PNA 7. Hypotension and Bradycardia - now stable 8. Anemia- Hgb 11.2- stable Plan: BUN/Cr 36/0.59- other electrolytes stable , -IV solu-medrol 40mg Q 8 hr uo- 1100ml / 24 hr pt has intermittent episodes of PAT, non sustained, Cardiology following IV abx Cefepime and Levaquin , Renally dose all abx and monitor electorlytes, ID following amlodipine 5 mg PO BID and losartan 25 mg PO BID- meanwhile use IV hydralazine prn Total critical care time spent 40 mins. Will follow up. Patient seen in collaboration with Dr Abi Schwartz. Plan of care dw staff.family at bd side-all Qs answered. Consultation Date/Type/Reason Admit Date/Time May 18, 2019 at 00:50 Initial Consult Date 05/18/19 Type of Consult NEPHRO Reason for Consultation [place] Requesting Provider: VIRGEN MCQUEEN Date/Time of Note DATE: 05/27/19 TIME: 15:07 24 HR Interval Summary Free Text/Dictation Nad afebrile remains intubated; seems comfortable on supplement oxygen Failed CPAP trials x 3 BUN/Cr - 39/0.59 today UO- 1.1 L /24hrs no ne events last night dw staff Subjective hx not possible: pt non-verbal Constitutional: requiring IVF, requiring O2 Exam/Review of Systems Exam Vitals Vital Signs Date Temp Pulse Resp B/P (MAP) Pulse Ox O2 O2 Flow FiO2 Time Delivery Rate 05/27/19 74 16 96 30 13:00 05/27/19 140/68 11:15 (92) 05/27/19 Mechanical 11:00 Ventilator 05/27/19 98.1 08:00 Intake and Output 05/26/19 05/26/19 05/27/19 1515:00 23:00 07:00 IntakeIntake Total 484.935 ml 521.514 ml 496.320 ml OutputOutput Total 425 ml 375 ml 300 ml BalanceBalance 59.935 ml 146.514 ml 196.320 ml Constitutional: well developed, non-verbal Psych: nl mood/affect Eyes: nl lids, nl sclera Neck: other (ET intact) Respiratory: clear to auscultation Cardiovascular: nl pulses, other (s1s2) Gastrointestinal: soft Musculoskeletal: muscle weakness Extremities: edema Neurological: unresponsive Skin: other (no rash noted) Results Result Diagram: 05/27/19 0440 05/27/19 0440 Results 24hrs Laboratory Tests Test 05/26/19 17:45 05/26/19 21:09 05/27/19 01:08 05/27/19 04:22 Bedside Glucose 134 144 144 184 Test 05/27/19 04:40 05/27/19 10:01 05/27/19 13:25 White Blood Count 10.8 Red Blood Count 3.64 L Hemoglobin 11.2 L Hematocrit 35.1 L Mean Corpuscular 96.4 Volume Mean Corpuscular 30.8 Hemoglobin Mean Corpuscular 31.9 L Hemoglobin Concent Red Cell 14.5 Distribution Width Platelet Count 216 Mean Platelet Volume 10.7 H Immature 1.300 H Granulocytes % Neutrophils % 87.8 H Lymphocytes % 4.8 L Monocytes % 5.9 Eosinophils % 0.1 Basophils % 0.1 Nucleated Red Blood 0.0 Cells % Immature 0.140 H Granulocytes # Neutrophils # 9.5 H Lymphocytes # 0.5 L Monocytes # 0.6 Eosinophils # 0.0 Basophils # 0.0 Nucleated Red Blood 0.0 Cells # Sodium Level 137 Potassium Level 4.1 Chloride Level 105 Carbon Dioxide Level 31 Anion Gap 1 L Blood Urea Nitrogen 36 H Creatinine 0.59 L Glucose Level 175 Calcium Level 8.7 Phosphorus Level 3.1 Magnesium Level 2.4 Albumin 2.4 L Bedside Glucose 183 161 Medications Medication Current Medications IV Flush (NS 3 ml) 3 ml PER PROTOCOL IV ; Start 05/18/19 at 02:00 Ondansetron HCl (Zofran Inj) 4 mg Q6H PRN IV NAUSEA/VOMITING; Start 05/18/19 at 02:00 Acetaminophen (Tylenol Tab) 650 mg Q6H PRN PO .PAIN 1-3 OR TEMP; Start 05/18/19 at 02:00 Albuterol/ Ipratropium (Duoneb) 3 ml Q2H RESP THERAPY PRN HHN wheezing; Start 05/18/19 at 09:30 Fentanyl 100 ml @ 2.5 mls/hr PER PROTOCOL IV Last administered on 05/19/19 06:37; Admin Dose 5 MLS/HR; Start 05/18/19 at 11:00 Hydralazine HCl (Apresoline) 10 mg Q4H PRN IV sbp >160 Last administered on 05/22/19 09:04; Admin Dose 10 MG; Start 05/18/19 at 11:00 Clopidogrel Bisulfate (plaVIX) 75 mg DAILY GTB Last administered on 05/27/19 09:59; Admin Dose 75 MG; Start 05/18/19 at 11:00 Norepinephrine 250 ml @ 1.875 mls/ hr TITRATE IV Last administered on 05/24/19 17:49; Admin Dose 3.75 MLS/HR; Start 05/18/19 at 16:00 IV Flush (NS 10 ml) 10 ml PRN PRN IV FLUSH LINE; Start 05/18/19 at 17:30 Propofol 100 ml @ 2.055 mls/ hr Q12H IV Last administered on 05/27/19 06:48; Admin Dose 6.165 MLS/HR; Start 05/19/19 at 11:30 Budesonide (Pulmicort (Neb)) 0.5 mg BID RESP THERAPY HHN Last administered on 05/27/19 09:01; Admin Dose 0.5 MG; Start 05/20/19 at 20:00 Lansoprazole (Prevacid) 30 mg DAILY@06 GTB Last administered on 05/27/19 05:33; Admin Dose 30 MG; Start 05/21/19 at 06:00 Midazolam HCl 50 ml @ 1 mls/hr TITRATE IV Last administered on 05/23/19 03:35; Admin Dose 7 MLS/HR; Start 05/21/19 at 15:30 Albuterol (Ventolin Hfa) 4 puff Q6H RESP THERAPY INH Last administered on 05/27/19 13:01; Admin Dose 4 PUFF; Start 05/21/19 at 20:00 Ipratropium [place] (Atrovent Hfa) 4 puff Q6H RESP THERAPY INH Last administer ed on 05/27/19 13:01; Admin Dose 4 PUFF; Start 05/21/19 at 20:00 Metoprolol Tartrate (Lopressor) 5 mg Q4 PRN IV SBP > 160 Last administered on 05/22/19at 01:59; Admin Dose 5 MG; Start 05/22/19 at 02:00 Morphine Sulfate (morphine) 3 mg Q4H PRN IV SEVERE PAIN LEVEL 7-10 Last administered on 05/22/19at 01:49; Admin Dose 3 MG; Start 05/22/19 at 02:00 Insulin Aspart Prota 70%/Aspart 30% (Novolog Mix (70/ 30) Flexpen) 10 unit BID SC Last administered on 05/27/19at 10:03; Admin Dose 10 UNIT; Start 05/23/19 at 21:00 Methylprednisolone Sodium Succinate (Solu-Medrol) 40 mg BID IV Last administered on 05/27/19 10:00; Admin Dose 40 MG; Start 05/23/19 at 21:00 Insulin Aspart (Novolog Insulin Pen) NOVOLOG *MILD* ALGORI... Q4 SC Last administered on 05/27/19at 13:27; Admin Dose 1 UNIT; Start 05/23/19 at 17:00 Miscellaneous Information 1 ea NOTE XX ; Start 05/23/19 at 16:00 Glucose (Glutose) 15 gm Q15M PRN PO DECREASED GLUCOSE; Start 05/23/19 at 16:00 Glucose (Glutose) 22.5 gm Q15M PRN PO DECREASED GLUCOSE; Start 05/23/19 at 16:00 Dextrose (D50w Syringe) 25 ml Q15M PRN IV DECREASED GLUCOSE; Start 05/23/19 at 16:00 Dextrose (D50w Syringe) 50 ml Q15M PRN IV DECREASED GLUCOSE; Start 05/23/19 at 16:00 Glucagon (Glucagen) 1 mg Q15M PRN IM DECREASED GLUCOSE; Start 05/23/19 at 16:00 Glucose (Glutose) 15 gm Q15M PRN BUCCAL DECREASED GLUCOSE; Start 05/23/19 at 16:00 Atorvastatin Calcium (Lipitor) 20 mg HS GTB Last administered on 05/26/19at 21:14; Admin Dose 20 MG; Start 05/26/19 at 21:00 Losartan Potassium (Cozaar) 25 mg BID GTB Last administered on 05/27/19at 09:59; Admin Dose 25 MG; Start 05/26/19 at 09:00 Fluconazole (Diflucan) 100 mg DAILY GTB Last administered on 05/27/19at 09:59; Admin Dose 100 MG; Start 05/26/19 at 13:30 Amlodipine Besylate (Norvasc) 5 mg DAILY GTB Last administered on 05/27/19at 10:00; Admin Dose 5 MG; Start 05/27/19 at 09:00 KATYA ARMAS May 27, 2019 15:08
[2019-05-27] MEDS ORDERED: LACTOBACILLUS RHAMNOSUS CAP PO SCH (16:00)
[2019-05-27] MEDS ORDERED: LACTOBACILLUS RHAMNOSUS CAP GTB SCH (21:00)
[2019-05-27] MEDS: LACTOBACILLUS RHAMNOSUS CAP GTB SCH (21:38)
[2019-05-27] MEDS: ATORVASTATIN 20 MG TAB GTB SCH (21:38)
[2019-05-28] VITALS (74 sets, daily range): BP systolic 98–174; BP diastolic 46–112; PULSE 50–84; RESP 11–28
[2019-05-28] MEDS: ALBUTEROL HFA 8 GM INHALER INH SCH ×4 (01:27→19:29)
[2019-05-28] MEDS: IPRATROPIUM (HFA) 12.9 GM INHALER INH SCH ×4 (01:27→19:30)
[2019-05-28] MEDS: INSULIN ASPART [NOVOLOG] 3 ML PEN SC SCH ×6 (01:41→20:44)
[2019-05-28] MEDS: LANSOPRAZOLE 30 MG CAP GTB SCH (05:05)
[2019-05-28] MEDS: PROPOFOL 100 ML IV SCH ×2 (05:20→15:58)
--- NOTE | 2019-05-28 08:45 | PN ---
Date/Time of Note Date/Time of Note DATE: 05/28/19 TIME: 08:41 Assessment/Plan VTE Prophylaxis Risk score (from Nsg)>0 risk: 12 SCD applied (from Nsg): Yes Pharmacological prophylaxis: other Lines/Catheters IV Catheter Type (from Nrsg): PICC Line Central line still needed: Yes Urinary Cath still in place: Yes Reason Cath still needed: terminal illness/intractable pain Assessment/Plan Assessment/Plan 1. Acute hypoxic respiratory failure - Will plan for CPAP trial this am and hopefully will be able to extubated to BIPAP - remains intubated on vent support - Pulm on board and appreciate recommendations. - Initial CT chest results noted with emphysema and bilateral effusions with atelectasis vs infiltrate 2. COPD exacerbation - currently on steroid taper and neb treatments 3. Acute toxic encephalopathy- stable - patient nodding/shaking head appropriately to questions - CT head noted, no acute issues - Neurology consultation appreciated 4. Acute kidney injury- resolved - Nephrology consultation appreciated 5. Hypertension - continue home medications. BP remains stable 6. Mild cognitive impairment - Neurology on board - Baseline is alert and oriented x3, with some memory loss 7. Mild carotid stenosis, right ICA - Continue on Plavix and statin 8. Hyperglycemia- improved - A1c noted - secondary to steroids 9. Arrhythmia - cardiology aware - continue monitoring - electrolytes within normal limits 10. Disposition - Will plan for weaning trial this am and hopefully able to extubate. [place] evaluation placed for discharge planning >30 minutes of critical care time spend with patient Result Diagram: 05/28/19 0440 05/28/19 0440 Results 24hrs Laboratory Tests Test 05/27/19 10:01 05/27/19 13:25 05/27/19 17:05 05/27/19 21:43 Bedside Glucose 183 161 168 160 Test 05/28/19 01:39 05/28/19 04:40 05/28/19 05:11 Bedside Glucose 162 159 White Blood Count 13.4 #H Red Blood Count 3.83 L Hemoglobin 11.7 L Hematocrit 36.9 L Mean Corpuscular 96.3 Volume Mean Corpuscular 30.5 Hemoglobin Mean Corpuscular 31.7 L Hemoglobin Concent Red Cell 14.4 Distribution Width Platelet Count 235 Mean Platelet Volume 10.8 H Immature 0.800 H Granulocytes % Neutrophils % 94.3 H Lymphocytes % 1.9 L Monocytes % 2.9 Eosinophils % 0.0 Basophils % 0.1 Nucleated Red Blood 0.0 Cells % Immature 0.110 H Granulocytes # Neutrophils # 12.7 H Lymphocytes # 0.3 L Monocytes # 0.4 Eosinophils # 0.0 Basophils # 0.0 Nucleated Red Blood 0.0 Cells # Sodium Level 138 Potassium Level 4.2 Chloride Level 103 Carbon Dioxide Level 32 H Anion Gap 3 L Blood Urea Nitrogen 32 H Creatinine 0.53 L Est Glomerular Filtrat Rate mL/min Glucose Level 178 Calcium Level 8.8 Phosphorus Level 3.2 Magnesium Level 2.5 Creatine Kinase < 20 L Creatine Kinase Index Creatinine Kinase MB 0.68 (Mass) Troponin I 0.029 Albumin 2.6 L Subjective 24 Hr Interval Summary Free Text/Dictation Patient is in no acute distress. TF held this am and will try CPAP trial this am. Exam/Review of Systems Exam Vitals Vital Signs Date Temp Pulse Resp B/P (MAP) Pulse Ox O2 O2 Flow FiO2 Time Delivery Rate 05/28/19 98.4 56 21 134/60 96 Mechanical 08:00 (84) Ventilator 05/28/19 30 05:02 Intake and Output 05/27/19 05/27/19 05/28/19 1515:00 23:00 07:00 IntakeIntake Total 480.6195 ml 449.770 ml 328.090 ml OutputOutput Total 405 ml 420 ml 285 ml BalanceBalance 75.6195 ml 29.770 ml 43.090 ml Exam General: Patient is laying in bed, intubated, no acute distress Eyes: EOMI, pupils reactive to light Neck: Supple, nontender, midline Respiratory: Diminished breath sounds, coarse at bases. no wheezing Cardiovascular: S1, S2, regular rate and rhythm, no obvious murmurs Gastrointestinal: soft, non-tender to palpation, bowel sounds heard. Skin: No new skin lesions Ext: trace edema LE bilaterally. no rashes or lesions appreciated Results Results 24hrs Laboratory Tests Test 05/27/19 10:01 05/27/19 13:25 05/27/19 17:05 05/27/19 21:43 Bedside Glucose 183 161 168 160 Test 05/28/19 01:39 05/28/19 04:40 05/28/19 05:11 Bedside Glucose 162 159 White Blood Count 13.4 #H Red Blood Count 3.83 L Hemoglobin 11.7 L Hematocrit 36.9 L Mean Corpuscular 96.3 Volume Mean Corpuscular 30.5 Hemoglobin Mean Corpuscular 31.7 L Hemoglobin Concent Red Cell 14.4 Distribution Width Platelet Count 235 Mean Platelet Volume 10.8 H Immature 0.800 H Granulocytes % Neutrophils % 94.3 H Lymphocytes % 1.9 L Monocytes % 2.9 Eosinophils % 0.0 Basophils % 0.1 Nucleated Red Blood 0.0 Cells % Immature 0.110 H Granulocytes # Neutrophils # 12.7 H Lymphocytes # 0.3 L Monocytes # 0.4 Eosinophils # 0.0 Basophils # 0.0 Nucleated Red Blood 0.0 Cells # Sodium Level 138 Potassium Level 4.2 Chloride Level 103 Carbon Dioxide Level 32 H Anion Gap 3 L Blood Urea Nitrogen 32 H Creatinine 0.53 L Est Glomerular Filtrat Rate mL/min Glucose Level 178 Calcium Level 8.8 Phosphorus Level 3.2 Magnesium Level 2.5 Creatine Kinase < 20 L Creatine Kinase Index Creatinine Kinase MB 0.68 (Mass) Troponin I 0.029 Albumin 2.6 L Medications Medication Current Medications IV Flush (NS 3 ml) 3 ml PER PROTOCOL IV ; Start 05/18/19 at 02:00 Ondansetron HCl (Zofran Inj) 4 mg Q6H PRN IV NAUSEA/VOMITING; Start 05/18/19 at 02:00 Acetaminophen (Tylenol Tab) 650 mg Q6H PRN PO .PAIN 1-3 OR TEMP; Start 05/18/19 at 02:00 Albuterol/ Ipratropium (Duoneb) 3 ml Q2H RESP THERAPY PRN HHN wheezing; Start 05/18/19 at 09:30 Fentanyl 100 ml @ 2.5 mls/hr PER PROTOCOL IV Last administered on 05/19/19at 06:37; Admin Dose 5 MLS/HR; Start 05/18/19 at 11:00 Hydralazine HCl (Apresoline) 10 mg Q4H PRN IV sbp >160 Last administered on 05/22/19at 09:04; Admin Dose 10 MG; Start 05/18/19 at 11:00 Clopidogrel Bisulfate (plaVIX) 75 mg DAILY GTB Last administered on 05/27/19at 09:59; Admin Dose 75 MG; Start 05/18/19 at 11:00 Norepinephrine 250 ml @ 1.875 mls/ hr TITRATE IV Last administered on 05/24/19 17:49; Admin Dose 3.75 MLS/HR; Start 05/18/19 at 16:00 IV Flush (NS 10 ml) 10 ml PRN PRN IV FLUSH LINE; Start 05/18/19 at 17:30 Propofol 100 ml @ 2.055 mls/ hr Q12H IV Last administered on 05/28/19 05:20; Admin Dose 12.33 MLS/HR; Start 05/19/19 at 11:30 Budesonide (Pulmicort (Neb)) 0.5 mg BID RESP THERAPY HHN Last administered on 05/27/19 19:31; Admin Dose 0.5 MG; Start 05/20/19 at 20:00 Lansoprazole (Prevacid) 30 mg DAILY@06 GTB Last administered on 05/28/19 05:05; Admin Dose 30 MG; Start 05/21/19 at 06:00 Midazolam HCl 50 ml @ 1 mls/hr TITRATE IV Last administered on 05/23/19 03:35; Admin Dose 7 MLS/HR; Start 05/21/19 at 15:30 Albuterol (Ventolin Hfa) 4 puff Q6H RESP THERAPY INH Last administered on 05/28/19 01:27; Admin Dose 4 PUFF; Start 05/21/19 at 20:00 Ipratropium [place] (Atrovent Hfa) 4 puff Q6H RESP THERAPY INH Last administered on 05/28/19 01:27; Admin Dose 4 PUFF; Start 05/21/19 at 20:00 Metoprolol Tartrate (Lopressor) 5 mg Q4 PRN IV SBP > 160 Last administered on 05/22/19 01:59; Admin Dose 5 MG; Start 05/22/19 at 02:00 Morphine Sulfate (morphine) 3 mg Q4H PRN IV SEVERE PAIN LEVEL 7-10 Last administered on 05/22/19 01:49; Admin Dose 3 MG; Start 05/22/19 at 02:00 Insulin Aspart Prota 70%/Aspart 30% (Novolog Mix (70/ 30) Flexpen) 10 unit BID SC Last administered on 05/27/19 21:59; Admin Dose 10 UNIT; Start 05/23/19 at 21:00 Methylprednisolone Sodium Succinate (Solu-Medrol) 40 mg BID IV Last administered on 05/27/19 21:38; Admin Dose 40 MG; Start 05/23/19 at 21:00 Insulin Aspart (Novolog Insulin Pen) NOVOLOG *MILD* ALGORI... Q4 SC Last admi nistered on 05/28/19at 05:19; Admin Dose 1 UNIT; Start 05/23/19 at 17:00 Miscellaneous Information 1 ea NOTE XX ; Start 05/23/19 at 16:00 Glucose (Glutose) 15 gm Q15M PRN PO DECREASED GLUCOSE; Start 05/23/19 at 16:00 Glucose (Glutose) 22.5 gm Q15M PRN PO DECREASED GLUCOSE; Start 05/23/19 at 16:00 Dextrose (D50w Syringe) 25 ml Q15M PRN IV DECREASED GLUCOSE; Start 05/23/19 at 16:00 Dextrose (D50w Syringe) 50 ml Q15M PRN IV DECREASED GLUCOSE; Start 05/23/19 at 16:00 Glucagon (Glucagen) 1 mg Q15M PRN IM DECREASED GLUCOSE; Start 05/23/19 at 16:00 Glucose (Glutose) 15 gm Q15M PRN BUCCAL DECREASED GLUCOSE; Start 05/23/19 at 16:00 Atorvastatin Calcium (Lipitor) 20 mg HS GTB Last administered on 05/27/19 21:38; Admin Dose 20 MG; Start 05/26/19 at 21:00 Losartan Potassium (Cozaar) 25 mg BID GTB Last administered on 05/27/19 09:59; Admin Dose 25 MG; Start 05/26/19 at 09:00 Fluconazole (Diflucan) 100 mg DAILY GTB Last administered on 05/27/19 09:59; Admin Dose 100 MG; Start 05/26/19 at 13:30 Amlodipine Besylate (Norvasc) 5 mg DAILY GTB Last administered on 05/27/19 10:00; Admin Dose 5 MG; Start 05/27/19 at 09:00 Lactobacillus Acidophilus/ Rhamnosus (Culturelle) 1 cap TID GTB Last administered on 05/27/19 21:38; Admin Dose 1 CAP; Start 05/27/19 at 21:00 SOFIA AYOUB MD May 28, 2019 08:45
[2019-05-28] MEDS: BUDESONIDE (NEB) 0.5MG/2ML AMP HHN SCH ×2 (09:09→19:30)
[2019-05-28] MEDS: METHYLPREDNISOLONE 40 MG INJ IV SCH ×2 (09:23→20:25)
[2019-05-28] MEDS: LACTOBACILLUS RHAMNOSUS CAP GTB SCH ×3 (09:26→20:24)
[2019-05-28] MEDS: CLOPIDOGREL 75 MG TAB GTB SCH (09:26)
[2019-05-28] MEDS: LOSARTAN 25 MG TAB GTB SCH ×2 (09:26→20:24)
[2019-05-28] MEDS: FLUCONAZOLE 100 MG TAB GTB SCH (09:26)
[2019-05-28] MEDS: INSULIN ASP PROT/ASPART (70/30) PEN SC SCH ×2 (09:26→20:41)
[2019-05-28] MEDS: AMLODIPINE 5 MG TAB GTB SCH (09:27)
--- NOTE | 2019-05-28 10:02 | CONS ---
Assessment/Plan Assessment/Plan Assessment/Plan (Daily) 1. acute hyperrkalemia - resolved 2. Acute kidney injury due to ATN from septic shock + prerenal azotemia - improved 3. acute hypercapnic respiratory failure 2/2 Septic shock and PNA,, intubated on ventilator 4. H/o HTN 5. h/o HL 6. Septic shock due to bilateral PNA 7. Hypotension and Bradycardia - now stable 8. Anemia- Hgb 11.7- stable Plan: BUN/Cr down to 32/0.53- other electrolytes stable , -IV solu-medrol 40mg Q 8 hr uo- 1.2 L / 24 hr pt has intermittent episodes of PAT, non sustained, Cardiology following IV abx Cefepime and Levaquin , Renally dose all abx and monitor electorlytes, ID following amlodipine 5 mg PO BID and losartan 25 mg PO BID- meanwhile use IV hydralazine prn Total critical care time spent 40 mins. Will follow up. Patient seen in c ollaboration with Dr Abi Schwartz. Plan of care dw staff.family at bd side-all Qs answered. Nad afebrile remains intubated; seems comfortable on supplement oxygen Failed CPAP trials x 3 BUN/Cr - 32/0.53 today UO- 1.2 L /24hrs no ne events last night dw staff Consultation Date/Type/Reason Admit Date/Time May 18, 2019 at 00:50 Initial Consult Date 05/18/19 Type of Consult NEPHROLOGY Reason for Consultation WESTLEY Requesting Provider: VIRGEN MCQUEEN Date/Time of Note DATE: 05/28/19 TIME: 10:01 24 HR Interval Summary Free Text/Dictation Nad afebrile remains intubated; seems comfortable on supplement oxygen Failed CPAP trials x 3 BUN/Cr - 32/0.53 today UO- 1.2 L /24hrs no ne events last night dw staff Subjective hx not possible: pt non-verbal Constitutional: requiring IVF, requiring O2 Exam/Review of Systems Exam Vitals Vital Signs Date Temp Pulse Resp B/P (MAP) Pulse Ox O2 O2 Flow FiO2 Time Delivery Rate 05/28/19 98.4 56 21 134/60 96 Mechanical 08:00 (84) Ventilator 05/28/19 30 05:02 Intake and Output 05/27/19 05/27/19 05/28/19 1515:00 23:00 07:00 IntakeIntake Total 480.6195 ml 449.770 ml 328.090 ml OutputOutput Total 405 ml 420 ml 285 ml BalanceBalance 75.6195 ml 29.770 ml 43.090 ml Constitutional: frail Psych: nl mood/affect Eyes: nl lids, nl sclera ENMT: nl external ears & nose Neck: other (ET tube intact) Respiratory: clear to auscultation Cardiovascular: nl pulses, other (s1s2) Gastrointestinal: soft Musculoskeletal: muscle weakness Extremities: edema Neurological: unresponsive Skin: other (no rash noted) Results Result Diagram: 05/28/19 0440 05/28/19 0440 Results 24hrs Laboratory Tests Test 05/27/19 13:25 05/27/19 17:05 05/27/19 21:43 05/28/19 01:39 Bedside Glucose 161 168 160 162 Test 05/28/19 04:40 05/28/19 05:11 05/28/19 09:14 White Blood Count 13.4 #H Red Blood Count 3.83 L Hemoglobin 11.7 L Hematocrit 36.9 L Mean Corpuscular 96.3 Volume Mean Corpuscular 30.5 Hemoglobin Mean Corpuscular 31.7 L Hemoglobin Concent Red Cell 14.4 Distribution Width Platelet Count 235 Mean Platelet Volume 10.8 H Immature 0.800 H Granulocytes % Neutrophils % 94.3 H Lymphocytes % 1.9 L Monocytes % 2.9 Eosinophils % 0.0 Basophils % 0.1 Nucleated Red Blood 0.0 Cells % Immature 0.110 H Granulocytes # Neutrophils # 12.7 H Lymphocytes # 0.3 L Monocytes # 0.4 Eosinophils # 0.0 Basophils # 0.0 Nucleated Red Blood 0.0 Cells # Sodium Level 138 Potassium Level 4.2 Chloride Level 103 Carbon Dioxide Level 32 H Anion Gap 3 L Blood Urea Nitrogen 32 H Creatinine 0.53 L Est Glomerular Filtrat Rate mL/min Glucose Level 178 Calcium Level 8.8 Phosphorus Level 3.2 Magnesium Level 2.5 Creatine Kinase < 20 L Creatine Kinase Index Creatinine Kinase MB 0.68 (Mass) Troponin I 0.029 Albumin 2.6 L Bedside Glucose 159 181 Medications Medication Current Medications IV Flush (NS 3 ml) 3 ml PER PROTOCOL IV ; Start 05/18/19 at 02:00 Ondansetron HCl (Zofran Inj) 4 mg Q6H PRN IV NAUSEA/VOMITING; Start 05/18/19 at 02:00 Acetaminophen (Tylenol Tab) 650 mg Q6H PRN PO .PAIN 1-3 OR TEMP; Start 05/18/19 at 02:00 Albuterol/ Ipratropium (Duoneb) 3 ml Q2H RESP THERAPY PRN HHN wheezing; Start 05/18/19 at 09:30 Fentanyl 100 ml @ 2.5 mls/hr PER PROTOCOL IV Last administered on 05/19/19 06:37; Admin Dose 5 MLS/HR; Start 05/18/19 at 11:00 Hydralazine HCl (Apresoline) 10 mg Q4H PRN IV sbp >160 Last administered on 05/22/19 09:04; Admin Dose 10 MG; Start 05/18/19 at 11:00 Clopidogrel Bisulfate (plaVIX) 75 mg DAILY GTB Last administered on 05/28/19 09:26; Admin Dose 75 MG; Start 05/18/19 at 11:00 Norepinephrine 250 ml @ 1.875 mls/ hr TITRATE IV Last administered on 05/24/19 17:49; Admin Dose 3.75 MLS/HR; Start 05/18/19 at 16:00 IV Flush (NS 10 ml) 10 ml PRN PRN IV FLUSH LINE; Start 05/18/19 at 17:30 Propofol 100 ml @ 2.055 mls/ hr Q12H IV Last administered on 05/28/19 05:20; Admin Dose 12.33 MLS/HR; Start 05/19/19 at 11:30 Budesonide (Pulmicort (Neb)) 0.5 mg BID RESP THERAPY HHN Last administered on 05/28/19 09:09; Admin Dose 0.5 MG; Start 05/20/19 at 20:00 Lansoprazole (Prevacid) 30 mg DAILY@06 GTB Last administered on 05/28/19 05:05; Admin Dose 30 MG; Start 05/21/19 at 06:00 Midazolam HCl 50 ml @ 1 mls/hr TITRATE IV Last administered on 05/23/19 03:35; Admin Dose 7 MLS/HR; Start 05/21/19 at 15:30 Albuterol (Ventolin Hfa) 4 puff Q6H RESP THERAPY INH Last administered on 05/28/19 09:09; Admin Dose 4 PUFF; Start 05/21/19 at 20:00 Ipratropium [place] (Atrovent Hfa) 4 puff Q6H RESP THERAPY INH Last administered on 05/28/19 09:09; Admin Dose 4 PUFF; Start 05/21/19 at 20:00 Metoprolol Tartrate (Lopressor) 5 mg Q4 PRN IV SBP > 160 Last administered on 05/22/19 01:59; Admin Dose 5 MG; Start 05/22/19 at 02:00 Morphine Sulfate (morphine) 3 mg Q4H PRN IV SEVERE PAIN LEVEL 7-10 Last administered on 05/22/19 01:49; Admin Dose 3 MG; Start 05/22/19 at 02:00 Insulin Aspart Prota 70%/Aspart 30% (Novolog Mix (70/ 30) Flexpen) 10 unit BID SC Last administered on 05/28/19 09:26; Admin Dose 10 UNIT; Start 05/23/19 at 21:00 Insulin Aspart (Novolog Insulin Pen) NOVOLOG *MILD* ALGORI... Q4 SC Last administered on 05/28/19 09:24; Admin Dose 1 UNIT; Start 05/23/19 at 17:00 Miscellaneous Information 1 ea NOTE XX ; Start 05/23/19 at 16:00 Glucose (Glutose) 15 gm Q15M PRN PO DECREASED GLUCOSE; Start 05/23/19 at 16:00 Glucose (Glutose) 22.5 gm Q15M PRN PO DECREASED GLUCOSE; Start 05/23/19 at 16:00 Dextrose (D50w Syringe) 25 ml Q15M PRN IV DECREASED GLUCOSE; Start 05/23/19 at 16:00 Dextrose (D50w Syringe) 50 ml Q15M PRN IV DECREASED GLUCOSE; Start 05/23/19 at 16:00 Glucagon (Glucagen) 1 mg Q15M PRN IM DECREASED GLUCOSE; Start 05/23/19 at 16:00 Glucose (Glutose) 15 gm Q15M PRN BUCCAL DECREASED GLUCOSE; Start 05/23/19 at 16:00 Atorvastatin Calcium (Lipitor) 20 mg HS GTB Last administered on 05/27/19at 21:38; Admin Dose 20 MG; Start 05/26/19 at 21:00 Losartan Potassium (Cozaar) 25 mg BID GTB Last administered on 05/28/19 09:26; Admin Dose 25 MG; Start 05/26/19 at 09:00 Fluconazole (Diflucan) 100 mg DAILY GTB Last administered on 05/28/19 09:26; Admin Dose 100 MG; Start 05/26/19 at 13:30 Amlodipine Besylate (Norvasc) 5 mg DAILY GTB Last administered on 05/28/19 09:27; Admin Dose 5 MG; Start 05/27/19 at 09:00 Lactobacillus Acidophilus/ Rhamnosus (Culturelle) 1 cap TID GTB Last administered on 05/28/19 09:26; Admin Dose 1 CAP; Start 05/27/19 at 21:00 Methylprednisolone Sodium Succinate (Solu-Medrol) 30 mg BID IV Last administered on 05/28/19 09:23; Admin Dose 30 MG; Start 05/28/19 at 09:00 KATYA ARMAS May 28, 2019 10:02
[2019-05-28] MEDS: morphine 4 MG/ML VIAL IV PRN (10:57)
[2019-05-28] MEDS: hydrALAzine 20 MG INJ IV PRN (11:15)
--- NOTE | 2019-05-28 11:41 | CONS ---
Consult Date/Type/Reason Admit Date/Time May 18, 2019 at 00:50 Initial Consult Date 05/18/19 Type of Consultation: Pilm/CCM Requesting Provider: VIRGEN MCQUEEN Date/Time of Note DATE: 05/28/19 TIME: 11:37 Subjective Tolerated CPAP x 1 hours--> then increased work of breathing and tachypnea not responsive to sedation. Objective Vitals Vital Signs Date Temp Pulse Resp B/P (MAP) Pulse Ox O2 O2 Flow FiO2 Time Delivery Rate 05/28/19 74 19 141/112 93 Mechanical 11:00 (122) Ventilator 05/28/19 98.4 08:00 05/28/19 30 08:00 Intake and Output 05/27/19 05/27/19 05/28/19 1515:00 23:00 07:00 IntakeIntake Total 480.6195 ml 449.770 ml 328.090 ml OutputOutput Total 405 ml 420 ml 285 ml BalanceBalance 75.6195 ml 29.770 ml 43.090 ml Exam HEENT: Neck supple; no JVD; no LAD; + ET tube CVS: RRR, S1 and S2 CHEST: Diminished BS B/L ABD: Soft, NT,+ BS EXT: No c/c/e NEURO: Awake and alert; moves all extremities Results/Medications Result Diagram: 05/28/1943905/28/19 0440 Results 24 hrs Laboratory Tests Test 05/27/19 13:25 05/27/19 17:05 05/27/19 21:43 05/28/19 01:39 Bedside Glucose 161 168 160 162 Test 05/28/19 04:40 05/28/19 05:11 05/28/19 09:14 05/28/19 10:53 White Blood Count 13.4 #H Red Blood Count 3.83 L Hemoglobin 11.7 L Hematocrit 36.9 L Mean Corpuscular 96.3 Volume Mean Corpuscular 30.5 Hemoglobin Mean Corpuscular 31.7 L Hemoglobin Concent Red Cell 14.4 Distribution Width Platelet Count 235 Mean Platelet Volume 10.8 H Immature 0.800 H Granulocytes % Neutrophils % 94.3 H Lymphocytes % 1.9 L Monocytes % 2.9 Eosinophils % 0.0 Basophils % 0.1 Nucleated Red Blood 0.0 Cells % Immature 0.110 H Granulocytes # Neutrophils # 12.7 H Lymphocytes # 0.3 L Monocytes # 0.4 Eosinophils # 0.0 Basophils # 0.0 Nucleated Red Blood 0.0 Cells # Sodium Level 138 Potassium Level 4.2 Chloride Level 103 Carbon Dioxide Level 32 H Anion Gap 3 L Blood Urea Nitrogen 32 H Creatinine 0.53 L Est Glomerular Filtrat Rate mL/min Glucose Level 178 Calcium Level 8.8 Phosphorus Level 3.2 Magnesium Level 2.5 Creatine Kinase < 20 L Creatine Kinase Index Creatinine Kinase MB 0.68 (Mass) Troponin I 0.029 Albumin 2.6 L Bedside Glucose 159 181 142 Home Meds Active Scripts Atorvastatin Calcium (Atorvastatin Calcium) 20 Mg Tablet, 20 MG PO HS for 30 Days, TAB Prov:VIRGEN MCQUEEN 05/16/19 Reported Medications Mineral Oil* (Fleet* Mineral Oil Enema) 133 Ml Oil, 133 ML NM Q48H PRN for CONSTIPATION, ENEMA 05/18/19 Bisacodyl* (Dulcolax*) 5 Mg Tablet.dr, 10 MG PO DAILY PRN for CONSTIPATION, TAB 05/18/19 Magnesium Hydroxide* (Milk Of Magnesia*) 400 Mg/5 Ml Oral.susp, 30 ML PO QHS PRN for CONSTIPATION, ML 05/18/19 Docusate Sodium* (Colace*) 100 Mg Capsule, 200 MG PO QHS, #30 CAP 05/18/19 Acetaminophen* (Acetaminophen*) 500 MG Extra Strength Tablet, 1000 MG PO Q6H PRN for MILD PAIN(1-3)OR ELEVATED TEMP, TAB 05/18/19 Acetaminophen* (Tylenol*) 325 Mg Tablet, 650 MG PO Q4H PRN for MILD PAIN LEVEL 1-3, TAB MILD PAIN, LOJA SCALE 1/10 - 3/10, OR FEVER ABOVE 100,(MAX 3 GRAMS PER 24 HOURS) 05/18/19 Acetaminophen* (Tylophen*) 500 Mg Capsule, 1000 MG PO TID PRN for PAIN, TAB 05/18/19 Nitroglycerin* (Nitrostat*) 0.4 Mg Tab.subl, 0.4 MG SL Q5MIN PRN for CHEST PAIN, BOTTLE 05/18/19 Albuterol Sulfate* (Albuterol Sulfate* Neb) 0.083%-3 Ml Neb, 2.5 MG NEB Q4H PRN for SHORTNESS OF BREATH, #30 VIAL 05/18/19 Calcium Carbonate* (Calcium Carbonate*) 600 MG Ca Tab, 500 MG PO QID PRN for GASTROINTESTINAL UPSET, TAB 05/18/19 Ascorbic Acid* (Vitamin C*) 500 Mg Capsule.sa, 500 MG PO DAILY, CAP 05/18/19 Multivitamins* (Theragran*) 1 Tab Tab, 1 TAB PO DAILY, TAB 05/18/19 Cran/Vitc/Mannose/Inulin/Brom (Uti-Stat Liquid) 3,875 Mg/30 Ml Liquid, 3875 MG PO DAILY 05/18/19 Cranberry Extract (Cranberry) 425 Mg Capsule, 425 MG PO DAILY, CAP 05/18/19 Thiamine* (Vitamin B-1*) 100 Mg Tablet, 100 MG PO DAILY, TAB 05/18/19 Fluticasone/Vilanterol (Breo Ellipta 200-25 Mcg INH) 1 Each Blst.w.dev, 1 PUFF INHALATION DAILY, #1 INHALER 05/18/19 Losartan Potassium* (Cozaar*) 25 Mg Tablet, 25 MG PO BID, #60 TAB 05/18/19 Hydrochlorothiazide* (Microzide*) 12.5 Mg Capsule, 12.5 MG PO DAILY, #30 CAP 05/18/19 Amlodipine Besylate* (Norvasc*) 5 Mg Tablet, 5 MG PO DAILY, TAB 05/18/19 Folic Acid* (Folic Acid*) 1 Mg Tablet, 1 MG PO DAILY, TAB 05/18/19 Budesonide-Formoterol Fumarate* (Symbicort*) 160-4.5 Hfa.aer.ad, 1 PUFF INH DAILY 05/10/19 Metoprolol Tartrate* (Lopressor*) 25 Mg Tablet, 1 TAB ORAL BID 05/10/19 Montelukast Sodium* (Montelukast Sodium*) 10 Mg Tablet, 1 TAB ORAL DAILY 05/10/19 Tiotropium [place]* (Spiriva*) 18 Mcg Cap.w.dev, 1 CAP INH DAILY 05/10/19 Medications Current Medications IV Flush (NS 3 ml) 3 ml PER PROTOCOL IV ; Start 05/18/19 at 02:00 Ondansetron HCl (Zofran Inj) 4 mg Q6H PRN IV NAUSEA/VOMITING; Start 05/18/19 at 02:00 Acetaminophen (Tylenol Tab) 650 mg Q6H PRN PO .PAIN 1-3 OR TEMP; Start 05/18/19 at 02:00 Albuterol/ Ipratropium (Duoneb) 3 ml Q2H RESP THERAPY PRN HHN wheezing; Start 05/18/19 at 09:30 Fentanyl 100 ml @ 2.5 mls/hr PER PROTOCOL IV Last administered on 05/19/19 06:37; Admin Dose 5 MLS/HR; Start 05/18/19 at 11:00 Hydralazine HCl (Apresoline) 10 mg Q4H PRN IV sbp >160 Last administered on 05/28/19 11:15; Admin Dose 10 MG; Start 05/18/19 at 11:00 Clopidogrel Bisulfate (plaVIX) 75 mg DAILY GTB Last administered on 05/28/19 09:26; Admin Dose 75 MG; Start 05/18/19 at 11:00 Norepinephrine 250 ml @ 1.875 mls/ hr TITRATE IV Last administered on 05/24/19 17:49; Admin Dose 3.75 MLS/HR; Start 05/18/19 at 16:00 IV Flush (NS 10 ml) 10 ml PRN PRN IV FLUSH LINE; Start 05/18/19 at 17:30 Propofol 100 ml @ 2.055 mls/ hr Q12H IV Last administered on 05/28/19 05:20; Admin Dose 12.33 MLS/HR; Start 05/19/19 at 11:30 Budesonide (Pulmicort (Neb)) 0.5 mg BID RESP THERAPY HHN Last administered on 05/28/19 09:09; Admin Dose 0.5 MG; Start 05/20/19 at 20:00 Lansoprazole (Prevacid) 30 mg DAILY@06 GTB Last administered on 05/28/19 05:05; Admin Dose 30 MG; Start 05/21/19 at 06:00 Midazolam HCl 50 ml @ 1 mls/hr TITRATE IV Last administered on 05/23/19 03:35; Admin Dose 7 MLS/HR; Start 05/21/19 at 15:30 Albuterol (Ventolin Hfa) 4 puff Q6H RESP THERAPY INH Last administered on 05/28/19 09:09; Admin Dose 4 PUFF; Start 05/21/19 at 20:00 Ipratropium [place] (Atrovent Hfa) 4 puff Q6H RESP THERAPY INH Last administered on 05/28/19 09:09; Admin Dose 4 PUFF; Start 05/21/19 at 20:00 Metoprolol Tartrate (Lopressor) 5 mg Q4 PRN IV SBP > 160 Last administered on 05/22/19 01:59; Admin Dose 5 MG; Start 05/22/19 at 02:00 Morphine Sulfate (morphine) 3 mg Q4H PRN IV SEVERE PAIN LEVEL 7-10 Last admin istered on 05/28/19 10:57; Admin Dose 3 MG; Start 05/22/19 at 02:00 Insulin Aspart Prota 70%/Aspart 30% (Novolog Mix (70/ 30) Flexpen) 10 unit BID SC Last administered on 05/28/19 09:26; Admin Dose 10 UNIT; Start 05/23/19 at 21:00 Insulin Aspart (Novolog Insulin Pen) NOVOLOG *MILD* ALGORI... Q4 SC Last administered on 05/28/19 09:24; Admin Dose 1 UNIT; Start 05/23/19 at 17:00 Miscellaneous Information 1 ea NOTE XX ; Start 05/23/19 at 16:00 Glucose (Glutose) 15 gm Q15M PRN PO DECREASED GLUCOSE; Start 05/23/19 at 16:00 Glucose (Glutose) 22.5 gm Q15M PRN PO DECREASED GLUCOSE; Start 05/23/19 at 16:00 Dextrose (D50w Syringe) 25 ml Q15M PRN IV DECREASED GLUCOSE; Start 05/23/19 at 16:00 Dextrose (D50w Syringe) 50 ml Q15M PRN IV DECREASED GLUCOSE; Start 05/23/19 at 16:00 Glucagon (Glucagen) 1 mg Q15M PRN IM DECREASED GLUCOSE; Start 05/23/19 at 16:00 Glucose (Glutose) 15 gm Q15M PRN BUCCAL DECREASED GLUCOSE; Start 05/23/19 at 16:00 Atorvastatin Calcium (Lipitor) 20 mg HS GTB Last administered on 05/27/19at 21:38; Admin Dose 20 MG; Start 05/26/19 at 21:00 Losartan Potassium (Cozaar) 25 mg BID GTB Last administered on 05/28/19 09:26; Admin Dose 25 MG; Start 05/26/19 at 09:00 Fluconazole (Diflucan) 100 mg DAILY GTB Last administered on 05/28/19 09:26; Admin Dose 100 MG; Start 05/26/19 at 13:30 Amlodipine Besylate (Norvasc) 5 mg DAILY GTB Last administered on 05/28/19 09:27; Admin Dose 5 MG; Start 05/27/19 at 09:00 Lactobacillus Acidophilus/ Rhamnosus (Culturelle) 1 cap TID GTB Last administered on 05/28/19 09:; Admin Dose 1 CAP; Start 05/27/19 at 21:00 Methylprednisolone Sodium Succinate (Solu-Medrol) 30 mg BID IV Last administered on 05/28/19 09:23; Admin Dose 30 MG; Start 05/28/19 at 09:00 Assessment/Plan Assessment/Plan (Daily) IMP: 1. Hypoxemic/Hypercapnic Respiratory Failure--> failure to wean 2. COPD Exacerbation 3. WESTLEY--resolved 4. Encephalopathy--> improved 5. FEN RECS: 1. Continue BDs 2. Solumedrol IV--> taper 3. Continue abx 4. Resume propofol and will retry weaning in am 5. Keep I<O's; gentle diuresis 35 min cc time TAMI LING MD May 28, 2019 11:41
[2019-05-28] MEDS: ATORVASTATIN 20 MG TAB GTB SCH (20:24)
[2019-05-29] VITALS (57 sets, daily range): BP systolic 78–213; BP diastolic 35–86; PULSE 57–101; RESP 12–29
[2019-05-29] MEDS: PROPOFOL 100 ML IV SCH ×4 (00:10→23:28)
[2019-05-29] MEDS: INSULIN ASPART [NOVOLOG] 3 ML PEN SC SCH ×6 (00:57→20:59)
[2019-05-29] MEDS: IPRATROPIUM (HFA) 12.9 GM INHALER INH SCH ×4 (01:16→19:50)
[2019-05-29] MEDS: ALBUTEROL HFA 8 GM INHALER INH SCH ×4 (01:16→19:50)
[2019-05-29] MEDS: LANSOPRAZOLE 30 MG CAP GTB SCH (05:06)
--- NOTE | 2019-05-29 07:33 | PN ---
DATE: 05/28/2019 SUBJECTIVE: No acute changes. The patient is intubated, sedated, in no distress. WBC today 13.4, neutrophils 94.3, BUN 32, creatinine 0.53. MICROBIOLOGY: Sputum culture grew [place] albicans. The patient remains on fluconazole. He is also on Solu-Medrol. INDWELLINGS: Endotracheal tube, NG tube, Hernández, PICC line. PHYSICAL EXAMINATION: GENERAL: Chronically ill-appearing, elderly man who is comfortable on vent. HEENT: Head atraumatic, normocephalic. NECK: Supple. CHEST: Rise symmetrical. Breath sounds diminished to bases. HEART: S1, S2. ABDOMEN: Soft, bowel sounds present. ASSESSMENT: 1. Status post sepsis, pneumonia. 2. Acute hypoxemic respiratory failure. 3. Chronic obstructive pulmonary disease. 4. Acute encephalopathy. 5. Diabetes. 6. Hypertension. PLAN: The patient remains hemodynamically stable. Pulmonary on case. He failed multiple weaning tr ials. We will continue observing him off antibiotics and reculture p.r.n. Dictated By: KURT SO PATENT LITIGATION ASSOCIATE for FROY CHAVIS/JASWINDER Conf#: [id number] DID#: [id number]
[2019-05-29] MEDS: BUDESONIDE (NEB) 0.5MG/2ML AMP HHN SCH ×2 (07:57→19:47)
[2019-05-29] MEDS: METHYLPREDNISOLONE 40 MG INJ IV SCH ×2 (08:30→20:46)
[2019-05-29] MEDS: AMLODIPINE 5 MG TAB GTB SCH (08:30)
[2019-05-29] MEDS: LACTOBACILLUS RHAMNOSUS CAP GTB SCH ×3 (08:30→20:46)
[2019-05-29] MEDS: CLOPIDOGREL 75 MG TAB GTB SCH (08:30)
[2019-05-29] MEDS: LOSARTAN 25 MG TAB GTB SCH ×2 (08:31→20:46)
[2019-05-29] MEDS: FLUCONAZOLE 100 MG TAB GTB SCH (08:31)
[2019-05-29] MEDS: INSULIN ASP PROT/ASPART (70/30) PEN SC SCH ×2 (08:43→20:55)
--- NOTE | 2019-05-29 08:58 | PN ---
Date/Time of Note Date/Time of Note DATE: 05/29/19 TIME: 08:56 Objective Vitals Vital Signs Date Temp Pulse Resp B/P (MAP) Pulse Ox O2 O2 Flow FiO2 Time Delivery Rate 05/29/19 84 19 96 30 08:01 05/29/19 156/72 Mechanical 07:00 (100) Ventilator 05/29/19 98.4 04:00 Intake and Output 05/28/19 05/28/19 05/29/19 1515:00 23:00 07:00 IntakeIntake Total 171.925 ml 524.802 ml 481.307 ml OutputOutput Total 335 ml 605 ml 245 ml BalanceBalance -163.075 ml -80.198 ml 236.307 ml Results Result Diagram: 05/29/19 0425 05/29/19 0425 Medications Medications Current Medications IV Flush (NS 3 ml) 3 ml PER PROTOCOL IV ; Start 05/18/19 at 02:00 Ondansetron HCl (Zofran Inj) 4 mg Q6H PRN IV NAUSEA/VOMITING; Start 05/18/19 at 02:00 Acetaminophen (Tylenol Tab) 650 mg Q6H PRN PO .PAIN 1-3 OR TEMP; Start 05/18/19 at 02:00 Albuterol/ Ipratropium (Duoneb) 3 ml Q2H RESP THERAPY PRN HHN wheezing; Start 05/18/19 at 09:30 Fentanyl 100 ml @ 2.5 mls/hr PER PROTOCOL IV Last administered on 05/19/19at 06:37; Admin Dose 5 MLS/HR; Start 05/18/19 at 11:00 Hydralazine HCl (Apresoline) 10 mg Q4H PRN IV sbp >160 Last administered on 05/28/19at 11:15; Admin Dose 10 MG; Start 05/18/19 at 11:00 Clopidogrel Bisulfate (plaVIX) 75 mg DAILY GTB Last administered on 05/29/19at 08:30; Admin Dose 75 MG; Start 05/18/19 at 11:00 Norepinephrine 250 ml @ 1.875 mls/ hr TITRATE IV Last administered on 05/24/19at 17:49; Admin Dose 3.75 MLS/HR; Start 05/18/19 at 16:00 IV Flush (NS 10 ml) 10 ml PRN PRN IV FLUSH LINE; Start 05/18/19 at 17:30 Propofol 100 ml @ 2.055 mls/ hr Q12H IV Last administered on 05/29/19 08:33; Admin Dose 10.275 MLS/HR; Start 05/19/19 at 11:30 Budesonide (Pulmicort (Neb)) 0.5 mg BID RESP THERAPY HHN Last administered on 05/29/19 07:57; Admin Dose 0.5 MG; Start 05/20/19 at 20:00 Lansoprazole (Prevacid) 30 mg DAILY@06 GTB Last administered on 05/29/19 05:06; Admin Dose 30 MG; Start 05/21/19 at 06:00 Midazolam HCl 50 ml @ 1 mls/hr TITRATE IV Last administered on 05/23/19 03:35; Admin Dose 7 MLS/HR; Start 05/21/19 at 15:30 Albuterol (Ventolin Hfa) 4 puff Q6H RESP THERAPY INH Last administered on 05/29/19 07:57; Admin Dose 4 PUFF; Start 05/21/19 at 20:00 Ipratropium [place] (Atrovent Hfa) 4 puff Q6H RESP THERAPY INH Last administered on 05/29/19 07:57; Admin Dose 4 PUFF; Start 05/21/19 at 20:00 Metoprolol Tartrate (Lopressor) 5 mg Q4 PRN IV SBP > 160 Last administered on 05/22/19 01:59; Admin Dose 5 MG; Start 05/22/19 at 02:00 Morphine Sulfate (morphine) 3 mg Q4H PRN IV SEVERE PAIN LEVEL 7-10 Last administered on 05/28/19 10:57; Admin Dose 3 MG; Start 05/22/19 at 02:00 Insulin Aspart Prota 70%/Aspart 30% (Novolog Mix (70/ 30) Flexpen) 10 unit BID SC Last administered on 05/29/19 08:43; Admin Dose 10 UNIT; Start 05/23/19 at 21:00 Insulin Aspart (Novolog Insulin Pen) NOVOLOG *MILD* ALGORI... Q4 SC Last administered on 05/29/19 08:42; Admin Dose 2 UNIT; Start 05/23/19 at 17:00 Miscellaneous Information 1 ea NOTE XX ; Start 05/23/19 at 16:00 Glucose (Glutose) 15 gm Q15M PRN PO DECREASED GLUCOSE; Start 05/23/19 at 16:00 Glucose (Glutose) 22.5 gm Q15M PRN PO DECREASED GLUCOSE; Start 05/23/19 at 16:00 Dextrose (D50w Syringe) 25 ml Q15M PRN IV DECREASED GLUCOSE; Start 05/23/19 at 16:00 Dextrose (D50w Syringe) 50 ml Q15M PRN IV DECREASED GLUCOSE; Start 05/23/19 at 16:00 Glucagon (Glucagen) 1 mg Q15M PRN IM DECREASED GLUCOSE; Start 05/23/19 at 16:00 Glucose (Glutose) 15 gm Q15M PRN BUCCAL DECREASED GLUCOSE; Start 05/23/19 at 16:00 Atorvastatin Calcium (Lipitor) 20 mg HS GTB Last administered on 05/28/19at 20:24; Admin Dose 20 MG; Start 05/26/19 at 21:00 Losartan Potassium (Cozaar) 25 mg BID GTB Last administered on 05/29/19 08:31; Admin Dose 25 MG; Start 05/26/19 at 09:00 Fluconazole (Diflucan) 100 mg DAILY GTB Last administered on 05/29/19 08:31; Admin Dose 100 MG; Start 05/26/19 at 13:30 Amlodipine Besylate (Norvasc) 5 mg DAILY GTB Last administered on 05/29/19 08:30; Admin Dose 5 MG; Start 05/27/19 at 09:00 Lactobacillus Acidophilus/ Rhamnosus (Culturelle) 1 cap TID GTB Last administered on 05/29/19 08:30; Admin Dose 1 CAP; Start 05/27/19 at 21:00 Methylprednisolone Sodium Succinate (Solu-Medrol) 30 mg BID IV Last adminis tered on 05/29/19 08:30; Admin Dose 30 MG; Start 05/28/19 at 09:00 VTE Prophylaxis Risk score (from Nsg)>0 risk: 10 SCD applied (from Nsg): Yes Lines/Catheters IV Catheter Type: Cabrales in Place: Yes Cont'd cabrales catheter reason: terminal illness/intractable pain Assessment/Plan Hospital Course Subjective Patient intubated and sedated Objective Physical exam General: Patient is laying in bed intubated mentation: Patient is sedated Head: Normocephalic atraumatic Eyes: EOMI, pupils reactive to light Neck: Supple, nontender, midline Respiratory: Coarse to auscultation bilaterally Cardiovascular: bradycardic rate, no obvious murmurs Gastrointestinal: non-tender to palpation, bowel sounds heard. Neurological: Unable to fully assess Skin: No new skin lesions Assessment/Plan 1. Acute hypoxic respiratory failure - Will plan for CPAP daily and hopefully will be able to extubated to BIPAP - remains intubated on vent support - Pulm on board and appreciate recommendations. - Initial CT chest results noted with emphysema and bilateral effusions with atelectasis vs infiltrate 2. COPD exacerbation - currently on steroid taper and neb treatments leukocytosis -Patient is currently off antibiotics per infectious disease recommendations however white count is going up, possibly consider restarting broad-spectrum antibiotics -Continue antifungal -Repeat blood cultures and urinalysis pending 3. Acute toxic encephalopathy- stable - patient nodding/shaking head appropriately to questions - CT head noted, no acute issues - Neurology consultation appreciated 4. Acute kidney injury- resolved - Nephrology consultation appreciated 5. Hypertension - continue home medications. BP remains stable 6. Mild cognitive impairment - Neurology on board - Baseline is alert and oriented x3, with some memory loss 7. Mild carotid stenosis, right ICA - Continue on Plavix and statin 8. Hyperglycemia- improved - A1c noted - secondary to steroids 9. Arrhythmia - cardiology aware - continue monitoring - electrolytes within normal limits 10. Disposition -Notrees evaluation -Patient remains difficult to extubate due to agitation >30 minutes of critical care time spend with patient VIRGEN MCQUEEN May 29, 2019 08:58
--- NOTE | 2019-05-29 09:09 | RADRPT ---
Vent Rate: 66 bpm RR Interval: 916 msec PA Interval: 129 msec QRS Duration: 101 msec QT Interval: 388 msec QTC Interval: 405 msec P-R-T [place]: 79 - 50 - 79 degrees Sinus rhythm...normal P axis, V-rate 50- 99 Low voltage, extremity leads...all extremity leads <0.5mV Consider anterior infarct...Q >30mS in V2-V5 Electronically Signed By: Xavier Crisostomo
--- NOTE | 2019-05-29 09:36 | CONS ---
Assessment/Plan Assessment/Plan Assessment/Plan (Daily) Chest x-ray showing emphysematous changes. Ventilator setting; AC of 12, tidal volume 500, PEEP of 5, 30% FiO2. Patient is currently on propofol at 25 mics per kilogram per minute. Assessment and recommendations; 1. Patient admitted with severe COPD exacerbation with severe hypercapnia requiring intubation, failed one self extubation attempt requiring immediate reintubation and is failed multiple weaning trials since then. 2. History of diabetes and hypertension. Continue current supportive care. Patient likely would need to have a tracheostomy performed. Prognosis is poor. Consultation Date/Type/Reason Admit Date/Time May 18, 2019 at 00:50 Initial Consult Date 05/18/19 Type of Consult Pulmonary/critical care Patient is an 84-year-old gentleman who was sent [facility] with altered mental status and severe hypoxemia. Upon evaluation patient was found to be in severe hypercapnic respiratory failure with pneumonia. Patient was intubated. By the time I saw him in ER, patient is orally intubated and is currently under paralytic and sedative effect. Patient however did not appear to be in any distress. History has been obtained from medical records. Past medical history; 1. Apparently advanced COPD. 2. Dementia. But the patient according to medical records is ambulatory and is usually awake and alert. Medications; reviewed. Allergies; none. Family history; not available. Social history; patient does have history of heavy smoking. Occupational history; not available. Review of system; not able to be obtained. General exam; elderly male, orally intubated, currently sedated. No distress noted. Requesting Provider: VIRGEN MCQUEEN Date/Time of Note DATE: 05/29/19 TIME: 09:34 24 HR Interval Summary Free Text/Dictation Patient's condition is critical. He has failed multiple weaning trials from ventilator. Patient however has remained hemodynamically stable. General exam; elderly male, orally intubated, sedated, currently in no distress. Exam/Review of Systems Exam Vitals Vital Signs Date Temp Pulse Resp B/P (MAP) Pulse Ox O2 O2 Flow FiO2 Time Delivery Rate 05/29/19 84 19 96 30 08:01 05/29/19 156/72 Mechanical 07:00 (100) Ventilator 05/29/19 98.4 04:00 Intake and Output 05/28/19 05/28/19 05/29/19 1515:00 23:00 07:00 IntakeIntake Total 171.925 ml 524.802 ml 481.307 ml OutputOutput Total 335 ml 605 ml 245 ml BalanceBalance -163.075 ml -80.198 ml 236.307 ml Exam H ENT exam; supple neck, no lymphadenopathy. 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 Orally intubated. No neck masses. Pupils are small bilaterally. Chest exam; diminished breath sounds bilaterally. No added sounds. S1-S2 audible, no murmurs. Regular rhythm. Abdomen exam; soft, no organomegaly. Bowel sounds audible. Nondistended. Extremity exam; no peripheral edema clubbing. JUNIOR ARCHITECT exam; patient is sedated. Results Result Diagram: 05/29/19 0425 05/29/19 0425 Results 24hrs Laboratory Tests Test 05/28/19 10:19 05/28/19 10:53 05/28/19 17:33 05/28/19 20:28 Creatine Kinase 21 L Creatine Kinase 2.3 Index Creatinine Kinase 0.48 MB (Mass) Troponin I 0.012 Bedside Glucose 142 125 133 Test 05/29/19 00:56 05/29/19 04:18 05/29/19 04:25 05/29/19 08:41 Bedside Glucose 139 142 158 White Blood Count 14.1 H Red Blood Count 3.91 L Hemoglobin 12.4 L Hematocrit 37.7 L Mean Corpuscular 96.4 Volume Mean Corpuscular 31.7 Hemoglobin Mean Corpuscular 32.9 Hemoglobin Concen t Red Cell 14.5 Distribution Width Platelet Count 305 # Mean Platelet 10.8 H Volume Immature 1.100 H Granulocytes % Neutrophils % 93.3 H Lymphocytes % 1.5 L Monocytes % 4.0 Eosinophils % 0.0 Basophils % 0.1 Nucleated Red 0.0 Blood Cells % Immature 0.150 H Granulocytes # Neutrophils # 13.2 H Lymphocytes # 0.2 L Monocytes # 0.6 Eosinophils # 0.0 Basophils # 0.0 Nucleated Red 0.0 Blood Cells # Sodium Level 136 Potassium Level 4.5 Chloride Level 101 Carbon Dioxide 32 H Level Anion Gap 3 L Blood Urea 28 H Nitrogen Creatinine 0.44 L Glucose Level 152 Calcium Level 8.6 Phosphorus Level 3.3 Magnesium Level 2.4 Albumin 2.5 L Test 05/29/19 09:00 Blood Gas Blood arterial Specimen Source Arterial Blood 05/29/2019 5:00:2 Date Drawn 4 AM Arterial Blood pH 7.452 H (Temp corrected) Arterial Blood 47.3 H pCO2 (Temp correct) Arterial Blood 89.9 pO2 (Temp corrected) Arterial Blood 32.3 H HCO3 Arterial Blood 7.3 H Base Excess Arterial Blood 96.7 Oxygen Saturation Joe Test ACCEPTAB Arterial Blood Right Radial Gas Puncture Site Arterial 0 Blood Carboxyhemo globin Arterial Blood 0.3 Methemoglobin Blood Gas A-a O2 68.4 H Differential Oxyhemoglobin 96.4 Percent Blood Gas 37.0 Temperature Blood Gas 12.0 Respiration Rate Blood Gas Actual 12 Respiration Rate Blood Gas VENT - AC Modality FiO2 30.0 Blood Gas Tidal 500.0 Volume Blood Gas Low 5.0 PEEP Setting Blood Gas [place] Notified Whom Blood Gas 05/29/2019 5:09:0 Notified Time 7 AM Medications Medication Current Medications IV Flush (NS 3 ml) 3 ml PER PROTOCOL IV ; Start 05/18/19 at 02:00 Ondansetron HCl (Zofran Inj) 4 mg Q6H PRN IV NAUSEA/VOMITING; Start 05/18/19 at 02:00 Acetaminophen (Tylenol Tab) 650 mg Q6H PRN PO .PAIN 1-3 OR TEMP; Start 05/18/19 at 02:00 Albuterol/ Ipratropium (Duoneb) 3 ml Q2H RESP THERAPY PRN HHN wheezing; Start 05/18/19 at 09:30 Fentanyl 100 ml @ 2.5 mls/hr PER PROTOCOL IV Last administered on 05/19/19at 06:37; Admin Dose 5 MLS/HR; Start 05/18/19 at 11:00 Hydralazine HCl (Apresoline) 10 mg Q4H PRN IV sbp >160 Last administered on 05/28/19at 11:15; Admin Dose 10 MG; Start 05/18/19 at 11:00 Clopidogrel Bisulfate (plaVIX) 75 mg DAILY GTB Last administered on 05/29/19at 08:30; Admin Dose 75 MG; Start 05/18/19 at 11:00 Norepinephrine 250 ml @ 1.875 mls/ hr TITRATE IV Last administered on 05/24/19at 17:49; Admin Dose 3.75 MLS/HR; Start 05/18/19 at 16:00 IV Flush (NS 10 ml) 10 ml PRN PRN IV FLUSH LINE; Start 05/18/19 at 17:30 Propofol 100 ml @ 2.055 mls/ hr Q12H IV Last administered on 05/29/19 08:33; Admin Dose 10.275 MLS/HR; Start 05/19/19 at 11:30 Budesonide (Pulmicort (Neb)) 0.5 mg BID RESP THERAPY HHN Last administered on 05/29/19 07:57; Admin Dose 0.5 MG; Start 05/20/19 at 20:00 Lansoprazole (Prevacid) 30 mg DAILY@06 GTB Last administered on 05/29/19 05:06; Admin Dose 30 MG; Start 05/21/19 at 06:00 Midazolam HCl 50 ml @ 1 mls/hr TITRATE IV Last administered on 05/23/19 03:35; Admin Dose 7 MLS/HR; Start 05/21/19 at 15:30 Albuterol (Ventolin Hfa) 4 puff Q6H RESP THERAPY INH Last administered on 05/29/19 07:57; Admin Dose 4 PUFF; Start 05/21/19 at 20:00 Ipratropium [place] (Atrovent Hfa) 4 puff Q6H RESP THERAPY INH Last administered on 05/29/19 07:57; Admin Dose 4 PUFF; Start 05/21/19 at 20:00 Metoprolol Tartrate (Lopressor) 5 mg Q4 PRN IV SBP > 160 Last administered on 05/22/19 01:59; Admin Dose 5 MG; Start 05/22/19 at 02:00 Morphine Sulfate (morphine) 3 mg Q4H PRN IV SEVERE PAIN LEVEL 7-10 Last administered on 05/28/19 10:57; Admin Dose 3 MG; Start 05/22/19 at 02:00 Insulin Aspart Prota 70%/Aspart 30% (Novolog Mix (70/ 30) Flexpen) 10 unit BID SC Last administered on 05/29/19 08:43; Admin Dose 10 UNIT; Start 05/23/19 at 21:00 Insulin Aspart (Novolog Insulin Pen) NOVOLOG *MILD* ALGORI... Q4 SC Last administered on 05/29/19 08:42; Admin Dose 2 UNIT; Start 05/23/19 at 17:00 Miscellaneous Information 1 ea NOTE XX ; Start 05/23/19 at 16:00 Glucose (Glutose) 15 gm Q15M PRN PO DECREASED GLUCOSE; Start 05/23/19 at 16:00 Glucose (Glutose) 22.5 gm Q15M PRN PO DECREASED GLUCOSE; Start 05/23/19 at 16:00 Dextrose (D50w Syringe) 25 ml Q15M PRN IV DECREASED GLUCOSE; Start 05/23/19 at 16:00 Dextrose (D50w Syringe) 50 ml Q15M PRN IV DECREASED GLUCOSE; Start 05/23/19 at 16:00 Glucagon (Glucagen) 1 mg Q15M PRN IM DECREASED GLUCOSE; Start 05/23/19 at 16:00 Glucose (Glutose) 15 gm Q15M PRN BUCCAL DECREASED GLUCOSE; Start 05/23/19 at 16:00 Atorvastatin Calcium (Lipitor) 20 mg HS GTB Last administered on 05/28/19at 20:24; Admin Dose 20 MG; Start 05/26/19 at 21:00 Losartan Potassium (Cozaar) 25 mg BID GTB Last administered on 05/29/19 08:31; Admin Dose 25 MG; Start 05/26/19 at 09:00 Fluconazole (Diflucan) 100 mg DAILY GTB Last administered on 05/29/19 08:31; Admin Dose 100 MG; Start 05/26/19 at 13:30 Amlodipine Besylate (Norvasc) 5 mg DAILY GTB Last administered on 05/29/19 08:30; Admin Dose 5 MG; Start 05/27/19 at 09:00 Lactobacillus Acidophilus/ Rhamnosus (Culturelle) 1 cap TID GTB Last administered on 05/29/19 08:30; Admin Dose 1 CAP; Start 05/27/19 at 21:00 Methylprednisolone Sodium Succinate (Solu-Medrol) 30 mg BID IV Last administered on 05/29/19 08:30; Admin Dose 30 MG; Start 05/28/19 at 09:00 JUAN F MATA May 29, 2019 09:36
[2019-05-29] MEDS: hydrALAzine 20 MG INJ IV PRN (13:43)
--- NOTE | 2019-05-29 13:51 | CONS ---
Assessment/Plan Assessment/Plan Hospital Course (Demo Recall) Respiratory failure, status post intubation History of hypertension with labile blood pressure currently Encephalopathy Preserved left ventricular ejection fraction COPD Acute kidney injury Blood pressure remains labile, on IV sedatives is likely contributing factor. Holding parameters on antihypertensives, PRN antihypertensives in the interim Antibiotics as per primary team Vent management as per pulmonary Consultation Date/Type/Reason Admit Date/Time May 18, 2019 at 00:50 Initial Consult Date 05/18/19 Type of Consult Cardiology Requesting Provider: VIRGEN MCQUEEN Date/Time of Note DATE: 05/29/19 TIME: 13:50 24 HR Interval Summary Free Text/Dictation Sedated and intubated Exam/Review of Systems Vital Signs Vitals Vital Signs Date Temp Pulse Resp B/P (MAP) Pulse Ox O2 O2 Flow FiO2 Time Delivery Rate 05/29/19 82 28 94 30 13:20 05/29/19 134/54 Mechanical 11:00 (80) Ventilator 05/29/19 97.2 08:00 Intake and Output 05/28/19 05/28/19 05/29/19 1515:00 23:00 07:00 IntakeIntake Total 171.925 ml 524.802 ml 481.307 ml OutputOutput Total 335 ml 605 ml 245 ml BalanceBalance -163.075 ml -80.198 ml 236.307 ml Exam Exam Sedated and intubated ENMT: intubated Respiratory: other (Coarse breath sounds bilaterally, no wheezing) Cardiovascular: regular rate and rhythm (S1-S2 heard) Gastrointestinal: soft, non-tender, bowel sounds Extremities: edema (Trace) Labs Result Diagram: 05/29/19 0425 05/29/19 0425 Results 24hrs Laboratory Tests Test 05/28/19 17:33 05/28/19 20:28 05/29/19 00:56 05/29/19 04:18 Bedside Glucose 125 133 139 142 Test 05/29/19 04:25 05/29/19 08:41 05/29/19 09:00 White Blood Count 14.1 H Red Blood Count 3.91 L Hemoglobin 12.4 L Hematocrit 37.7 L Mean Corpuscular 96.4 Volume Mean Corpuscular 31.7 Hemoglobin Mean Corpuscular 32.9 Hemoglobin Concen t Red Cell 14.5 Distribution Width Platelet Count 305 # Mean Platelet 10.8 H Volume Immature 1.100 H Granulocytes % Neutrophils % 93.3 H Lymphocytes % 1.5 L Monocytes % 4.0 Eosinophils % 0.0 Basophils % 0.1 Nucleated Red 0.0 Blood Cells % Immature 0.150 H Granulocytes # Neutrophils # 13.2 H Lymphocytes # 0.2 L Monocytes # 0.6 Eosinophils # 0.0 Basophils # 0.0 Nucleated Red 0.0 Blood Cells # Sodium Level 136 Potassium Level 4.5 Chloride Level 101 Carbon Dioxide 32 H Level Anion Gap 3 L Blood Urea 28 H Nitrogen Creatinine 0.44 L Glucose Level 152 Calcium Level 8.6 Phosphorus Level 3.3 Magnesium Level 2.4 Albumin 2.5 L Bedside Glucose 158 Blood Gas Blood arterial Specimen Source Arterial Blood 05/29/2019 5:00:2 Date Drawn 4 AM Arterial Blood pH 7.452 H (Temp corrected) Arterial Blood 47.3 H pCO2 (Temp correct) Arterial Blood 89.9 pO2 (Temp corrected) Arterial Blood 32.3 H HCO3 Arterial Blood 7.3 H Base Excess Arterial Blood 96.7 Oxygen Saturation Joe Test ACCEPTAB Arterial Blood Right Radial Gas Puncture Site Arterial 0 Blood Carboxyhemo globin Arterial Blood 0.3 Methemoglobin Blood Gas A-a O2 68.4 H Differential Oxyhemoglobin 96.4 Percent Blood Gas 37.0 Temperature Blood Gas 12.0 Respiration Rate Blood Gas Actual 12 Respiration Rate Blood Gas VENT - AC Modality FiO2 30.0 Blood Gas Tidal 500.0 Volume Blood Gas Low 5.0 PEEP Setting Blood Gas [place] Notified Whom Blood Gas 05/29/2019 5:09:0 Notified Time 7 AM Medications Medications Current Medications IV Flush (NS 3 ml) 3 ml PER PROTOCOL IV ; Start 05/18/19 at 02:00 Ondansetron HCl (Zofran Inj) 4 mg Q6H PRN IV NAUSEA/VOMITING; Start 05/18/19 at 02:00 Acetaminophen (Tylenol Tab) 650 mg Q6H PRN PO .PAIN 1-3 OR TEMP; Start 05/18/19 at 02:00 Albuterol/ Ipratropium (Duoneb) 3 ml Q2H RESP THERAPY PRN HHN wheezing; Start 05/18/19 at 09:30 Fentanyl 100 ml @ 2.5 mls/hr PER PROTOCOL IV Last administered on 05/19/19at 06:37; Admin Dose 5 MLS/HR; Start 05/18/19 at 11:00 Hydralazine HCl (Apresoline) 10 mg Q4H PRN IV sbp >160 Last administered on 05/29/19 13:43; Admin Dose 10 MG; Start 05/18/19 at 11:00 Clopidogrel Bisulfate (plaVIX) 75 mg DAILY GTB Last administered on 05/29/19 08:30; Admin Dose 75 MG; Start 05/18/19 at 11:00 Norepinephrine 250 ml @ 1.875 mls/ hr TITRATE IV Last administered on 05/24/19 17:49; Admin Dose 3.75 MLS/HR; Start 05/18/19 at 16:00 IV Flush (NS 10 ml) 10 ml PRN PRN IV FLUSH LINE; Start 05/18/19 at 17:30 Propofol 100 ml @ 2.055 mls/ hr Q12H IV Last administered on 05/29/19 08:33; Admin Dose 10.275 MLS/HR; Start 05/19/19 at 11:30 Budesonide (Pulmicort (Neb)) 0.5 mg BID RESP THERAPY HHN Last administered on 05/29/19 07:57; Admin Dose 0.5 MG; Start 05/20/19 at 20:00 Lansoprazole (Prevacid) 30 mg DAILY@06 GTB Last administered on 05/29/19 05:06; Admin Dose 30 MG; Start 05/21/19 at 06:00 Midazolam HCl 50 ml @ 1 mls/hr TITRATE IV Last administered on 05/23/19 03:35; Admin Dose 7 MLS/HR; Start 05/21/19 at 15:30 Albuterol (Ventolin Hfa) 4 puff Q6H RESP THERAPY INH Last administered on 05/29/19 13:15; Admin Dose 4 PUFF; Start 05/21/19 at 20:00 Ipratropium [place] (Atrovent Hfa) 4 puff Q6H RESP THERAPY INH Last administered on 05/29/19 13:15; Admin Dose 4 PUFF; Start 05/21/19 at 20:00 Metoprolol Tartrate (Lopressor) 5 mg Q4 PRN IV SBP > 160 Last administered on 05/22/19 01:59; Admin Dose 5 MG; Start 05/22/19 at 02:00 Morphine Sulfate (morphine) 3 mg Q4H PRN IV SEVERE PAIN LEVEL 7-10 Last administered on 05/28/19at 10:57; Admin Dose 3 MG; Start 05/22/19 at 02:00 Insulin Aspart Prota 70%/Aspart 30% (Novolog Mix (70/ 30) Flexpen) 10 unit BID SC Last administered on 05/29/19 08:43; Admin Dose 10 UNIT; Start 05/23/19 at 21:00 Insulin Aspart (Novolog Insulin Pen) NOVOLOG *MILD* ALGORI... Q4 SC Last administered on 05/29/19 13:47; Admin Dose 1 UNIT; Start 05/23/19 at 17:00 Miscellaneous Information 1 ea NOTE XX ; Start 05/23/19 at 16:00 Glucose (Glutose) 15 gm Q15M PRN PO DECREASED GLUCOSE; Start 05/23/19 at 16:00 Glucose (Glutose) 22.5 gm Q15M PRN PO DECREASED GLUCOSE; Start 05/23/19 at 16:00 Dextrose (D50w Syringe) 25 ml Q15M PRN IV DECREASED GLUCOSE; Start 05/23/19 at 16:00 Dextrose (D50w Syringe) 50 ml Q15M PRN IV DECREASED GLUCOSE; Start 05/23/19 at 16:00 Glucagon (Glucagen) 1 mg Q15M PRN IM DECREASED GLUCOSE; Start 05/23/19 at 16:00 Glucose (Glutose) 15 gm Q15M PRN BUCCAL DECREASED GLUCOSE; Start 05/23/19 at 16:00 Atorvastatin Calcium (Lipitor) 20 mg HS GTB Last administered on 05/28/19at 20:24; Admin Dose 20 MG; Start 05/26/19 at 21:00 Losartan Potassium (Cozaar) 25 mg BID GTB Last administered on 05/29/19 08:31; Admin Dose 25 MG; Start 05/26/19 at 09:00 Fluconazole (Diflucan) 100 mg DAILY GTB Last administered on 05/29/19 08:31; Admin Dose 100 MG; Start 05/26/19 at 13:30 Amlodipine Besylate (Norvasc) 5 mg DAILY GTB Last administered on 05/29/19 08:30; Admin Dose 5 MG; Start 05/27/19 at 09:00 Lactobacillus Acidophilus/ Rhamnosus (Culturelle) 1 cap TID GTB Last administer ed on 05/29/19at 13:43; Admin Dose 1 CAP; Start 05/27/19 at 21:00 Methylprednisolone Sodium Succinate (Solu-Medrol) 30 mg BID IV Last administered on 05/29/19at 08:30; Admin Dose 30 MG; Start 05/28/19 at 09:00 Bao Garza DO May 29, 2019 13:51
--- NOTE | 2019-05-29 14:15 | CONS ---
Assessment/Plan Assessment/Plan Assessment/Plan (Daily) 1. acute hyperrkalemia - resolved 2. Acute kidney injury due to ATN from septic shock + prerenal azotemia - improved 3. acute hypercapnic respiratory failure 2/2 Septic shock and PNA,, intubated on ventilator 4. H/o HTN 5. h/o HL 6. Septic shock due to bilateral PNA 7. Hypotension and Bradycardia - now stable 8. Anemia- Hgb 11.7- stable Plan: BUN/Cr improved to 28/0.44- other electrolytes stable , -IV solu-medrol 30mg IV BID Amlodipine 5 mg PO daily Cozaar 25 mg pO BID , IV hydralazine prn IV abx Cefepime and Levaquin , Renally dose all abx and monitor electorlytes, ID following Failed CPAP trial today, pulmonary has been following will follow up Consultation Date/Type/Reason Admit Date/Time May 18, 2019 at 00:50 Initial Consult Date 05/18/19 Type of Consult NEPHROLOGY Requesting Provider: VIRGEN MCQUEEN Date/Time of Note DATE: 05/29/19 TIME: 14:14 Exam/Review of Systems Exam Vitals Vital Signs Date Temp Pulse Resp B/P (MAP) Pulse Ox O2 O2 Flow FiO2 Time Delivery Rate 05/29/19 82 28 94 30 13:20 05/29/19 134/54 Mechanical 11:00 (80) Ventilator 05/29/19 97.2 08:00 Intake and Output 05/28/19 05/28/19 05/29/19 1515:00 23:00 07:00 IntakeIntake Total 171.925 ml 524.802 ml 481.307 ml OutputOutput Total 335 ml 605 ml 245 ml BalanceBalance -163.075 ml -80.198 ml 236.307 ml Exam Constitutional: non-verbal ENMT: intubated Neck: supple, non-tender Respiratory: congested cough, crackles/rales, diminished breath sounds Cardiovascular: regular rate and rhythm Gastrointestinal: soft, non-tender Musculoskeletal: muscle weakness, swelling (1+ edema ) Neurological: other (intubated sedated on ventilator ) Results Result Diagram: 05/29/19 0425 05/29/19 0425 Results 24hrs Laboratory Tests Test 05/28/19 17:33 05/28/19 20:28 05/29/19 00:56 05/29/19 04:18 Bedside Glucose 125 133 139 142 Test 05/29/19 04:25 05/29/19 08:41 05/29/19 09:00 05/29/19 13:45 White Blood Count 14.1 H Red Blood Count 3.91 L Hemoglobin 12.4 L Hematocrit 37.7 L Mean Corpuscular 96.4 Volume Mean Corpuscular 31.7 Hemoglobin Mean Corpuscular 32.9 Hemoglobin Concen t Red Cell 14.5 Distribution Width Platelet Count 305 # Mean Platelet 10.8 H Volume Immature 1.100 H Granulocytes % Neutrophils % 93.3 H Lymphocytes % 1.5 L Monocytes % 4.0 Eosinophils % 0.0 Basophils % 0.1 Nucleated Red 0.0 Blood Cells % Immature 0.150 H Granulocytes # Neutrophils # 13.2 H Lymphocytes # 0.2 L Monocytes # 0.6 Eosinophils # 0.0 Basophils # 0.0 Nucleated Red 0.0 Blood Cells # Sodium Level 136 Potassium Level 4.5 Chloride Level 101 Carbon Dioxide 32 H Level Anion Gap 3 L Blood Urea 28 H Nitrogen Creatinine 0.44 L Glucose Level 152 Calcium Level 8.6 Phosphorus Level 3.3 Magnesium Level 2.4 Albumin 2.5 L Bedside Glucose 158 164 Blood Gas Blood arterial Specimen Source Arterial Blood 05/29/2019 5:00:2 Date Drawn 4 AM Arterial Blood pH 7.452 H (Temp corrected) Arterial Blood 47.3 H pCO2 (Temp correct) Arterial Blood 89.9 pO2 (Temp corrected) Arterial Blood 32.3 H HCO3 Arterial Blood 7.3 H Base Excess Arterial Blood 96.7 Oxygen Saturation Joe Test ACCEPTAB Arterial Blood Right Radial Gas Puncture Site Arterial 0 Blood Carboxyhemo globin Arterial Blood 0.3 Methemoglobin Blood Gas A-a O2 68.4 H Differential Oxyhemoglobin 96.4 Percent Blood Gas 37.0 Temperature Blood Gas 12.0 Respiration Rate Blood Gas Actual 12 Respiration Rate Blood Gas VENT - AC Modality FiO2 30.0 Blood Gas Tidal 500.0 Volume Blood Gas Low 5.0 PEEP Setting Blood Gas [place] Notified Whom Blood Gas 05/29/2019 5:09:0 Notified Time 7 AM Medications Medication Current Medications IV Flush (NS 3 ml) 3 ml PER PROTOCOL IV ; Start 05/18/19 at 02:00 Ondansetron HCl (Zofran Inj) 4 mg Q6H PRN IV NAUSEA/VOMITING; Start 05/18/19 at 02:00 Acetaminophen (Tylenol Tab) 650 mg Q6H PRN PO .PAIN 1-3 OR TEMP; Start 05/18/19 at 02:00 Albuterol/ Ipratropium (Duoneb) 3 ml Q2H RESP THERAPY PRN HHN wheezing; Start 05/18/19 at 09:30 Fentanyl 100 ml @ 2.5 mls/hr PER PROTOCOL IV Last administered on 05/19/19 06:37; Admin Dose 5 MLS/HR; Start 05/18/19 at 11:00 Hydralazine HCl (Apresoline) 10 mg Q4H PRN IV sbp >160 Last administered on 05/29/19 13:43; Admin Dose 10 MG; Start 05/18/19 at 11:00 Clopidogrel Bisulfate (plaVIX) 75 mg DAILY GTB Last administered on 05/29/19 08:30; Admin Dose 75 MG; Start 05/18/19 at 11:00 Norepinephrine 250 ml @ 1.875 mls/ hr TITRATE IV Last administered on 05/24/19 17:49; Admin Dose 3.75 MLS/HR; Start 05/18/19 at 16:00 IV Flush (NS 10 ml) 10 ml PRN PRN IV FLUSH LINE; Start 05/18/19 at 17:30 Budesonide (Pulmicort (Neb)) 0.5 mg BID RESP THERAPY HHN Last administered on 05/29/19 07:57; Admin Dose 0.5 MG; Start 05/20/19 at 20:00 Lansoprazole (Prevacid) 30 mg DAILY@06 GTB Last administered on 05/29/19 05:06; Admin Dose 30 MG; Start 05/21/19 at 06:00 Midazolam HCl 50 ml @ 1 mls/hr TITRATE IV Last administered on 05/23/19 03:35; Admin Dose 7 MLS/HR; Start 05/21/19 at 15:30 Albuterol (Ventolin Hfa) 4 puff Q6H RESP THERAPY INH Last administered on 05/29/19 13:15; Admin Dose 4 PUFF; Start 05/21/19 at 20:00 Ipratropium [place] (Atrovent Hfa) 4 puff Q6H RESP THERAPY INH Last administered on 05/29/19 13:15; Admin Dose 4 PUFF; Start 05/21/19 at 20:00 Metoprolol Tartrate (Lopressor) 5 mg Q4 PRN IV SBP > 160 Last administered on 05/22/19at 01:59; Admin Dose 5 MG; Start 05/22/19 at 02:00 Morphine Sulfate (morphine) 3 mg Q4H PRN IV SEVERE PAIN LEVEL 7-10 Last administered on 05/28/19at 10:57; Admin Dose 3 MG; Start 05/22/19 at 02:00 Insulin Aspart Prota 70%/Aspart 30% (Novolog Mix (70/ 30) Flexpen) 10 unit BID SC Last administered on 05/29/19 08:43; Admin Dose 10 UNIT; Start 05/23/19 at 21:00 Insulin Aspart (Novolog Insulin Pen) NOVOLOG *MILD* ALGORI... Q4 SC Last administered on 05/29/19at 13:47; Admin Dose 1 UNIT; Start 05/23/19 at 17:00 Miscellaneous Information 1 ea NOTE XX ; Start 05/23/19 at 16:00 Glucose (Glutose) 15 gm Q15M PRN PO DECREASED GLUCOSE; Start 05/23/19 at 16:00 Glucose (Glutose) 22.5 gm Q15M PRN PO DECREASED GLUCOSE; Start 05/23/19 at 16:00 Dextrose (D50w Syringe) 25 ml Q15M PRN IV DECREASED GLUCOSE; Start 05/23/19 at 16:00 Dextrose (D50w Syringe) 50 ml Q15M PRN IV DECREASED GLUCOSE; Start 05/23/19 at 16:00 Glucagon (Glucagen) 1 mg Q15M PRN IM DECREASED GLUCOSE; Start 05/23/19 at 16:00 Glucose (Glutose) 15 gm Q15M PRN BUCCAL DECREASED GLUCOSE; Start 05/23/19 at 16:00 Atorvastatin Calcium (Lipitor) 20 mg HS GTB Last administered on 05/28/19at 20:24; Admin Dose 20 MG; Start 05/26/19 at 21:00 Losartan Potassium (Cozaar) 25 mg BID GTB Last administered on 05/29/19at 08:31; Admin Dose 25 MG; Start 05/26/19 at 09:00 Fluconazole (Diflucan) 100 mg DAILY GTB Last administered on 05/29/19 08:31; Admin Dose 100 MG; Start 05/26/19 at 13:30 Amlodipine Besylate (Norvasc) 5 mg DAILY GTB Last administered on 05/29/19 08:30; Admin Dose 5 MG; Start 05/27/19 at 09:00 Lactobacillus Acidophilus/ Rhamnosus (Culturelle) 1 cap TID GTB Last administered on 05/29/19 13:43; Admin Dose 1 CAP; Start 05/27/19 at 21:00 Methylprednisolone Sodium Succinate (Solu-Medrol) 30 mg BID IV Last administered on 05/29/19 08:30; Admin Dose 30 MG; Start 05/28/19 at 09:00 EDGARD CLARKE MD May 29, 2019 14:15
[2019-05-29] MEDS: DEXMEDETOMIDINE IN DEXTROSE 5% 50 ML IV SCH (14:27)
[2019-05-29] MEDS: morphine 4 MG/ML VIAL IV PRN (15:21)
[2019-05-29] MEDS ORDERED: PROPOFOL 100 ML ONE (15:43)
[2019-05-29] MEDS: ATORVASTATIN 20 MG TAB GTB SCH (20:46)
--- NOTE | 2019-05-29 21:43 | PN ---
DATE: 05/29/2019 SUBJECTIVE: Patient is lying comfortably in bed. No fevers overnight. WBC went up to 14.1, platelets 305, neutrophils 93.3. BUN 28, creatinine 0.44. DIAGNOSTICS: Chest x-ray this morning revealed stable bilateral pleural effusions with possible kim cent atelectasis or infiltrate. INDWELLINGS: Endotracheal tube, NG tube, Hernández and PICC line. PHYSICAL EXAMINATION: GENERAL: This is a chronically ill-appearing, elderly man who is intubated, sedated, in no distress. HEENT: Head atraumatic, normocephalic. NECK: Supple. CHEST: Rise symmetrical. Breath sounds diminished to bases. HEART: S1, S2. ABDOMEN: Soft, bowel sounds present. EXTREMITIES: With trace edema. ASSESSMENT: 1. Acute respiratory failure. 2. Status post pneumonia. 3. Chronic obstructive pulmonary disease exacerbation. 4. Acute encephalopathy. 5. Diabetes. 6. Leukocytosis, possibly steroid induced. PLAN: The patient remains stable. He was recultured because of the leukocytosis. Continue present care. Vent management per pulmonary. Dictated By: [employer] for FROY HURT MD NI/NTS Conf#: [id number] DID#: [id number]
[2019-05-30] VITALS (57 sets, daily range): BP systolic 86–149; BP diastolic 46–68; PULSE 56–81; RESP 12–26
[2019-05-30] MEDS: INSULIN ASPART [NOVOLOG] 3 ML PEN SC SCH ×6 (00:56→20:19)
[2019-05-30] MEDS: IPRATROPIUM (HFA) 12.9 GM INHALER INH SCH ×4 (01:09→19:42)
[2019-05-30] MEDS: ALBUTEROL HFA 8 GM INHALER INH SCH ×4 (01:10→19:41)
[2019-05-30] MEDS: LANSOPRAZOLE 30 MG CAP GTB SCH (05:08)
[2019-05-30] MEDS: PROPOFOL 100 ML IV SCH ×2 (07:54→16:48)
--- NOTE | 2019-05-30 08:37 | CONS ---
Assessment/Plan Assessment/Plan Assessment/Plan (Daily) Ventilator setting; AC of 12, tidal volume 500, PEEP of 5, 35% FiO2. Patient is currently on propofol at 25 mics per kilogram per minute. Assessment and recommendations; 1. Patient admitted with respiratory failure due to underlying end-stage COPD with severe hypercapnia and has failed multiple weaning attempts from ventilator. 2. History of diabetes and hypertension. 3. Underlying anxiety disorder. Continue current supportive care. Patient will need to have a tracheostomy performed. Will hold sedation in order to assess mental status and if the patient exhibits adequate mental status we will question him regarding whether he wants to proceed with tracheostomy or not. Failing that, family members will be consulted. Prognosis appears guarded to poor. Consultation Date/Type/Reason Admit Date/Time May 18, 2019 at 00:50 Initial Consult Date 05/18/19 Type of Consult Pulmonary/critical care Patient is an 84-year-old gentleman who was sent over from senior living with altered mental status and severe hypoxemia. Upon evaluation patient was found to be in severe hypercapnic respiratory failure with pneumonia. Patient was intubated. By the time I saw him in ER, patient is orally intubated and is currently under paralytic and sedative effect. Patient however did not appear to be in any distress. History has been obtained from medical records. Past medical history; 1. Apparently advanced COPD. 2. Dementia. But the patient according to medical records is ambulatory and is usually awake and alert. Medications; reviewed. Allergies; none. Family history; not available. Social history; patient does have history of heavy smoking. Occupational history; not available. Review of system; not able to be obtained. General exam; elderly male, orally intubated, currently sedated. No distress noted. Requesting Provider: VIRGEN MCQUEEN Date/Time of Note DATE: 05/30/19 TIME: 08:34 24 HR Interval Summary Free Text/Dictation Patient's condition is critical. Patient has failed multiple weaning attempts of ventilator. Also failed one self extubation episode. Requiring immediate reintubation. General exam; elderly male, orally intubated, sedated, currently in no distress. Exam/Review of Systems Exam Vitals Vital Signs Date Temp Pulse Resp B/P (MAP) Pulse Ox O2 O2 Flow FiO2 Time Delivery Rate 05/30/19 63 22 105/50 98 Mechanical 06:00 (68) Ventilator 05/30/19 30 05:13 7/30/19 98.6 04:00 Intake and Output 05/29/19 05/29/19 05/30/19 1515:00 23:00 07:00 IntakeIntake Total 66.800 ml 387.185 ml 521.925 ml OutputOutput Total 0 ml 210 ml 170 ml BalanceBalance 66.800 ml 177.185 ml 351.925 ml Exam H EENT exam; supple neck, JVD difficult to see because of ross. Orally intubated. Patient is edentulous. No neck masses. Pupils are small bilaterally. Chest exam; diminished breath sounds bilaterally. No added sounds. S1-S2 audible, no murmurs. Regular rhythm. Abdomen exam; soft, no organomegaly. Bowel sounds audible. Abdomen is nondistended. Extremity exam; no peripheral edema. 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 Results Result Diagram: 05/30/19 0500 05/30/19 0500 Results 24hrs Laboratory Tests Test 05/29/19 08:41 05/29/19 09:00 05/29/19 13:45 05/29/19 15:53 Bedside Glucose 158 164 Blood Gas Blood arterial Specimen Source Arterial Blood 05/29/2019 5:00: Date Drawn 24 AM Arterial Blood 7.452 H pH (Temp corrected) Arterial Blood 47.3 H pCO2 (Temp correct) Arterial Blood 89.9 pO2 (Temp corrected) Arterial Blood 32.3 H HCO3 Arterial Blood 7.3 H Base Excess Arterial Blood 96.7 Oxygen Saturatio n Joe Test ACCEPTAB Arterial Blood Right Radial Gas Puncture Site Arterial 0 Blood Carboxyhem oglobin Arterial Blood 0.3 Methemoglobin Blood Gas A-a O2 68.4 H Differential Oxyhemoglobin 96.4 Percent Blood Gas 37.0 Temperature Blood Gas 12.0 Respiration Rate Blood Gas Actual 12 Respiration Rate Blood Gas VENT - AC Modality FiO2 30.0 Blood Gas Tidal 500.0 Volume Blood Gas Low 5.0 PEEP Setting Blood Gas GA Notified Whom Blood Gas 05/29/2019 5:09: Notified Time 07 AM Urine Color YELLOW Urine Clarity SLIGHTLY CLOUDY A Urine pH 5.0 Urine Specific 1.021 [place] Urine Ketones NEGATIVE Urine Nitrite NEGATIVE Urine Bilirubin NEGATIVE Urine NEGATIVE Urobilinogen Urine Leukocyte NEGATIVE Esterase Urine 84 H Microscopic RBC Urine 3 Microscopic WBC Urine Mucus FEW A Urine Hemoglobin 2+ H Urine Glucose NEGATIVE Urine Total 1+ H Protein Test 05/29/19 17:34 05/29/19 20:14 05/30/19 00:32 05/30/19 04:19 Bedside Glucose 195 161 156 174 Test 05/30/19 05:00 White Blood 12.2 H Count Red Blood Count 3.70 L Hemoglobin 11.3 L Hematocrit 35.4 L Mean Corpuscular 95.7 Volume Mean Corpuscular 30.5 Hemoglobin Mean Corpuscular 31.9 L Hemoglobin [place] nt Red Cell 14.4 Distribution Width Platelet Count 286 Mean Platelet 10.6 H Volume Immature 0.700 H Granulocytes % Neutrophils % 91.6 H Lymphocytes % 1.6 L Monocytes % 5.9 Eosinophils % 0.0 Basophils % 0.2 Nucleated Red 0.0 Blood Cells % Immature 0.080 H Granulocytes # Neutrophils # 11.2 H Lymphocytes # 0.2 L Monocytes # 0.7 Eosinophils # 0.0 Basophils # 0.0 Nucleated Red 0.0 Blood Cells # Sodium Level 137 Potassium Level 4.5 Chloride Level 102 Carbon Dioxide 35 H Level Anion Gap 0 L Blood Urea 31 H Nitrogen Creatinine 0.49 L Est Glomerular Filtrat Rate mL/min Glucose Level 179 Calcium Level 8.5 Phosphorus Level 3.0 Magnesium Level 2.5 Medications Medication Current Medications IV Flush (NS 3 ml) 3 ml PER PROTOCOL IV ; Start 05/18/19 at 02:00 Ondansetron HCl (Zofran Inj) 4 mg Q6H PRN IV NAUSEA/VOMITING; Start 05/18/19 at 02:00 Acetaminophen (Tylenol Tab) 650 mg Q6H PRN PO .PAIN 1-3 OR TEMP; Start 05/18/19 at 02:00 Albuterol/ Ipratropium (Duoneb) 3 ml Q2H RESP THERAPY PRN HHN wheezing; Start 05/18/19 at 09:30 Hydralazine HCl (Apresoline) 10 mg Q4H PRN IV sbp >160 Last administered on 05/29/19at 13:43; Admin Dose 10 MG; Start 05/18/19 at 11:00 Clopidogrel Bisulfate (plaVIX) 75 mg DAILY GTB Last administered on 05/29/19at 08:30; Admin Dose 75 MG; Start 05/18/19 at 11:00 IV Flush (NS 10 ml) 10 ml PRN PRN IV FLUSH LINE; Start 05/18/19 at 17:30 Budesonide (Pulmicort (Neb)) 0.5 mg BID RESP THERAPY HHN Last administered on 05/29/19 19:47; Admin Dose 0.5 MG; Start 05/20/19 at 20:00 Lansoprazole (Prevacid) 30 mg DAILY@06 GTB Last administered on 05/30/19 05:08; Admin Dose 30 MG; Start 05/21/19 at 06:00 Albuterol (Ventolin Hfa) 4 puff Q6H RESP THERAPY INH Last administered on 05/30/19 08:25; Admin Dose 4 PUFF; Start 05/21/19 at 20:00 Ipratropium [place] (Atrovent Hfa) 4 puff Q6H RESP THERAPY INH Last administered on 05/30/19 08:25; Admin Dose 4 PUFF; Start 05/21/19 at 20:00 Metoprolol Tartrate (Lopressor) 5 mg Q4 PRN IV SBP > 160 Last administered on 05/22/19at 01:59; Admin Dose 5 MG; Start 05/22/19 at 02:00 Morphine Sulfate (morphine) 3 mg Q4H PRN IV SEVERE PAIN LEVEL 7-10 Last administered on 05/29/19 15:21; Admin Dose 3 MG; Start 05/22/19 at 02:00 Insulin Aspart Prota 70%/Aspart 30% (Novolog Mix (70/ 30) Flexpen) 10 unit BID SC Last administered on 05/29/19 20:55; Admin Dose 10 UNIT; Start 05/23/19 at 21:00 Insulin Aspart (Novolog Insulin Pen) NOVOLOG *MILD* ALGORI... Q4 SC Last administered on 05/30/19 04:34; Admin Dose 1 UNIT; Start 05/23/19 at 17:00 Miscellaneous Information 1 ea NOTE XX ; Start 05/23/19 at 16:00 Glucose (Glutose) 15 gm Q15M PRN PO DECREASED GLUCOSE; Start 05/23/19 at 16:00 Glucose (Glutose) 22.5 gm Q15M PRN PO DECREASED GLUCOSE; Start 05/23/19 at 16:00 Dextrose (D50w Syringe) 25 ml Q15M PRN IV DECREASED GLUCOSE; Start 05/23/19 at 16:00 Dextrose (D50w Syringe) 50 ml Q15M PRN IV DECREASED GLUCOSE; Start 05/23/19 at 16:00 Glucagon (Glucagen) 1 mg Q15M PRN IM DECREASED GLUCOSE; Start 05/23/19 at 16:00 Glucose (Glutose) 15 gm Q15M PRN BUCCAL DECREASED GLUCOSE; Start 05/23/19 at 16:00 Atorvastatin Calcium (Lipitor) 20 mg HS GTB Last administered on 05/29/19 20:46; Admin Dose 20 MG; Start 05/26/19 at 21:00 Losartan Potassium (Cozaar) 25 mg BID GTB Last administered on 05/29/19 20:46; Admin Dose 25 MG; Start 05/26/19 at 09:00 Fluconazole (Diflucan) 100 mg DAILY GTB Last administered on 05/29/19 08:31; Admin Dose 100 MG; Start 05/26/19 at 13:30 Amlodipine Besylate (Norvasc) 5 mg DAILY GTB Last administered on 05/29/19 08:30; Admin Dose 5 MG; Start 05/27/19 at 09:00 Lactobacillus Acidophilus/ Rhamnosus (Culturelle) 1 cap TID GTB Last administered on 05/29/19 20:46; Admin Dose 1 CAP; Start 05/27/19 at 21:00 Methylprednisolone Sodium Succinate (Solu-Medrol) 30 mg BID IV Last administered on 05/29/19 20:46; Admin Dose 30 MG; Start 05/28/19 at 09:00 Propofol 100 ml @ 2.055 mls/ hr Q12H IV Last administered on 05/30/19 07:54; Admin Dose 10.275 MLS/HR; Start 05/29/19 at 16:30 JUAN F MATA May 30, 2019 08:37
[2019-05-30] MEDS: CLOPIDOGREL 75 MG TAB GTB SCH (09:09)
[2019-05-30] MEDS: LOSARTAN 25 MG TAB GTB SCH ×2 (09:09→20:24)
[2019-05-30] MEDS: FLUCONAZOLE 100 MG TAB GTB SCH (09:09)
[2019-05-30] MEDS: LACTOBACILLUS RHAMNOSUS CAP GTB SCH ×3 (09:09→20:11)
[2019-05-30] MEDS: METHYLPREDNISOLONE 40 MG INJ IV SCH ×2 (09:09→20:12)
[2019-05-30] MEDS: AMLODIPINE 5 MG TAB GTB SCH (09:09)
[2019-05-30] MEDS: INSULIN ASP PROT/ASPART (70/30) PEN SC SCH (09:10)
--- NOTE | 2019-05-30 10:12 | PN ---
Date/Time of Note Date/Time of Note DATE: 05/30/19 TIME: 10:10 Objective Vitals Vital Signs Date Temp Pulse Resp B/P (MAP) Pulse Ox O2 O2 Flow FiO2 Time Delivery Rate 05/30/19 63 22 105/50 98 Mechanical 06:00 (68) Ventilator 05/30/19 30 05:13 05/30/19 98.6 04:00 Intake and Output 05/29/19 05/29/19 05/30/19 1515:00 23:00 07:00 IntakeIntake Total 66.800 ml 387.185 ml 521.925 ml OutputOutput Total 0 ml 210 ml 170 ml BalanceBalance 66.800 ml 177.185 ml 351.925 ml Results Result Diagram: 05/30/19 0500 05/30/19 0500 Medications Medications Current Medications IV Flush (NS 3 ml) 3 ml PER PROTOCOL IV ; Start 05/18/19 at 02:00 Ondansetron HCl (Zofran Inj) 4 mg Q6H PRN IV NAUSEA/VOMITING; Start 05/18/19 at 02:00 Acetaminophen (Tylenol Tab) 650 mg Q6H PRN PO .PAIN 1-3 OR TEMP; Start 05/18/19 at 02:00 Albuterol/ Ipratropium (Duoneb) 3 ml Q2H RESP THERAPY PRN HHN wheezing; Start 05/18/19 at 09:30 Hydralazine HCl (Apresoline) 10 mg Q4H PRN IV sbp >160 Last administered on 05/29/19at 13:43; Admin Dose 10 MG; Start 05/18/19 at 11:00 Clopidogrel Bisulfate (plaVIX) 75 mg DAILY GTB Last administered on 05/30/19at 09:09; Admin Dose 75 MG; Start 05/18/19 at 11:00 IV Flush (NS 10 ml) 10 ml PRN PRN IV FLUSH LINE; Start 05/18/19 at 17:30 Lansoprazole (Prevacid) 30 mg DAILY@06 GTB Last administered on 05/30/19at 05:08; Admin Dose 30 MG; Start 05/21/19 at 06:00 Albuterol (Ventolin Hfa) 4 puff Q6H RESP THERAPY INH Last administered on 05/30/19at 08:25; Admin Dose 4 PUFF; Start 05/21/19 at 20:00 Ipratropium [place] (Atrovent Hfa) 4 puff Q6H RESP THERAPY INH Last administered on 05/30/19 08:25; Admin Dose 4 PUFF; Start 05/21/19 at 20:00 Metoprolol Tartrate (Lopressor) 5 mg Q4 PRN IV SBP > 160 Last administered on 05/22/19 01:59; Admin Dose 5 MG; Start 05/22/19 at 02:00 Morphine Sulfate (morphine) 3 mg Q4H PRN IV SEVERE PAIN LEVEL 7-10 Last administered on 05/29/19 15:21; Admin Dose 3 MG; Start 05/22/19 at 02:00 Insulin Aspart Prota 70%/Aspart 30% (Novolog Mix (70/ 30) Flexpen) 10 unit BID SC Last administered on 05/30/19 09:10; Admin Dose 10 UNIT; Start 05/23/19 at 21:00 Insulin Aspart (Novolog Insulin Pen) NOVOLOG *MILD* ALGORI... Q4 SC Last administered on 05/30/19 04:34; Admin Dose 1 UNIT; Start 05/23/19 at 17:00 Miscellaneous Information 1 ea NOTE XX ; Start 05/23/19 at 16:00 Glucose (Glutose) 15 gm Q15M PRN PO DECREASED GLUCOSE; Start 05/23/19 at 16:00 Glucose (Glutose) 22.5 gm Q15M PRN PO DECREASED GLUCOSE; Start 05/23/19 at 16:00 Dextrose (D50w Syringe) 25 ml Q15M PRN IV DECREASED GLUCOSE; Start 05/23/19 at 16:00 Dextrose (D50w Syringe) 50 ml Q15M PRN IV DECREASED GLUCOSE; Start 05/23/19 at 16:00 Glucagon (Glucagen) 1 mg Q15M PRN IM DECREASED GLUCOSE; Start 05/23/19 at 16:00 Glucose (Glutose) 15 gm Q15M PRN BUCCAL DECREASED GLUCOSE; Start 05/23/19 at 16:00 Atorvastatin Calcium (Lipitor) 20 mg HS GTB Last administered on 05/29/19at 20:46; Admin Dose 20 MG; Start 05/26/19 at 21:00 Losartan Potassium (Cozaar) 25 mg BID GTB Last administered on 05/30/19 09:09; Admin Dose 25 MG; Start 05/26/19 at 09:00 Fluconazole (Diflucan) 100 mg DAILY GTB Last administered on 05/30/19 09:09; Admin Dose 100 MG; Start 05/26/19 at 13:30 Amlodipine Besylate (Norvasc) 5 mg DAILY GTB Last administered on 05/30/19 09:09; Admin Dose 5 MG; Start 05/27/19 at 09:00 Lactobacillus Acidophilus/ Rhamnosus (Culturelle) 1 cap TID GTB Last administered on 05/30/19 09:09; Admin Dose 1 CAP; Start 05/27/19 at 21:00 Methylprednisolone Sodium Succinate (Solu-Medrol) 30 mg BID IV Last administered on 05/30/19 09:09; Admin Dose 30 MG; Start 05/28/19 at 09:00 Propofol 100 ml @ 2.055 mls/ hr Q12H IV Last administered on 05/30/19 07:54; Admin Dose 10.275 MLS/HR; Start 05/29/19 at 16:30 VTE Prophylaxis Risk score (from Ns)>0 risk: 11 SCD applied (from [facility] [place]): Yes Lines/Catheters IV Catheter Type: Hernández in Place: No Assessment/Plan Hospital Course Subjective Patient intubated and sedated Objective Physical exam General: Patient is laying in bed intubated mentation: Patient is sedated Head: Normocephalic atraumatic Eyes: EOMI, pupils reactive to light Neck: Supple, nontender, midline Respiratory: Coarse to auscultation bilaterally Cardiovascular: bradycardic rate, no obvious murmurs Gastrointestinal: non-tender to palpation, bowel sounds heard. Neurological: Unable to fully assess Skin: No new skin lesions Assessment/Plan 1. Acute hypoxic respiratory failure - Will plan for CPAP daily and hopefully will be able to extubated to BIPAP - remains intubated on vent support - Pulm on board and appreciate recommendations. - Initial CT chest results noted with emphysema and bilateral effusions with atelectasis vs infiltrate 2. COPD exacerbation - currently on steroid taper and neb treatments leukocytosis, resolving -Patient is currently off antibiotics per infectious disease recommendations, resolving leukocytosis -Continue antifungal -Repeat blood cultures pending, UA noted 3. Acute toxic encephalopathy- stable - patient nodding/shaking head appropriately to questions when off sedation - CT head noted, no acute issues - Neurology consultation appreciated 4. Acute kidney injury- resolved - Nephrology consultation appreciated 5. Hypertension - continue home medications. BP remains stable 6. Mild cognitive impairment - Neurology on board - Baseline is alert and oriented x3, with some memory loss 7. Mild carotid stenosis, right ICA - Continue on Plavix and statin 8. Hyperglycemia- improved - A1c noted - secondary to steroids 9. Arrhythmia - cardiology aware - continue monitoring - electrolytes within normal limits 10. Disposition -Patient remains difficult to extubate, pulmonary feels we may need to perform tracheostomy, will discuss with patient when patient undergoing next sedation vacation. >40 minutes of critical care time spend with patient VIRGEN MCQUEEN May 30, 2019 10:12
--- NOTE | 2019-05-30 13:40 | CONS ---
Assessment/Plan Assessment/Plan Assessment/Plan (Daily) 1. acute hyperrkalemia - resolved 2. Acute kidney injury due to ATN from septic shock + prerenal azotemia - improved 3. acute hypercapnic respiratory failure 2/2 Septic shock and PNA,, intubated on ventilator 4. H/o HTN 5. h/o HL 6. Septic shock due to bilateral PNA 7. Hypotension and Bradycardia - now stable 8. Anemia- Hgb 11.7- stable Plan: BUN/Cr improved to 31/0.49- other electrolytes stable , -IV solu-medrol 30mg IV BID Amlodipine 5 mg PO daily Cozaar 25 mg pO BID , IV hydralazine prn IV abx Cefepime and Levaquin , Renally dose all abx and monitor electorlytes, ID following Failed CPAP trial today, pulmonary has been following will follow up Consultation Date/Type/Reason Admit Date/Time May 18, 2019 at 00:50 Initial Consult Date 05/18/19 Type of Consult NEPHROLOGY Requesting Provider: VIRGEN MCQUEEN Date/Time of Note DATE: 05/30/19 TIME: 13:39 Exam/Review of Systems Exam Vitals Vital Signs Date Temp Pulse Resp B/P (MAP) Pulse Ox O2 O2 Flow FiO2 Time Delivery Rate 05/30/19 65 08:00 05/30/19 Bag Valve 08:00 Mask 05/30/19 22 105/50 98 06:00 (68) 05/30/19 30 05:13 05/30/19 98.6 04:00 Intake and Output 05/29/19 05/29/19 05/30/19 1515:00 23:00 07:00 IntakeIntake Total 66.800 ml 387.185 ml 521.925 ml OutputOutput Total 0 ml 210 ml 170 ml BalanceBalance 66.800 ml 177.185 ml 351.925 ml Results Result Diagram: 05/30/19 0500 05/30/19 0500 Results 24hrs Laboratory Tests Test 05/29/19 13:45 05/29/19 15:53 05/29/19 17:34 05/29/19 20:14 Bedside Glucose 164 195 161 Urine Color YELLOW Urine Clarity SLIGHTLY CLOUDY A Urine pH 5.0 Urine Specific 1.021 [place] Urine Ketones NEGATIVE Urine Nitrite NEGATIVE Urine Bilirubin NEGATIVE Urine NEGATIVE Urobilinogen Urine Leukocyte NEGATIVE Esterase Urine Microscopic 84 H RBC Urine Microscopic 3 WBC Urine Mucus FEW A Urine Hemoglobin 2+ H Urine Glucose NEGATIVE Urine Total 1+ H Protein Test 05/30/19 00:32 05/30/19 04:19 05/30/19 05:00 05/30/19 09:07 Bedside Glucose 156 174 138 White Blood Count 12.2 H Red Blood Count 3.70 L Hemoglobin 11.3 L Hematocrit 35.4 L Mean Corpuscular 95.7 Volume Mean Corpuscular 30.5 Hemoglobin Mean Corpuscular 31.9 L Hemoglobin Concen t Red Cell 14.4 Distribution Width Platelet Count 286 Mean Platelet 10.6 H Volume Immature 0.700 H Granulocytes % Neutrophils % 91.6 H Lymphocytes % 1.6 L Monocytes % 5.9 Eosinophils % 0.0 Basophils % 0.2 Nucleated Red 0.0 Blood Cells % Immature 0.080 H Granulocytes # Neutrophils # 11.2 H Lymphocytes # 0.2 L Monocytes # 0.7 Eosinophils # 0.0 Basophils # 0.0 Nucleated Red 0.0 Blood Cells # Sodium Level 137 Potassium Level 4.5 Chloride Level 102 Carbon Dioxide 35 H Level Anion Gap 0 L Blood Urea 31 H Nitrogen Creatinine 0.49 L Est Glomerular Filtrat Rate mL/min Glucose Level 179 Calcium Level 8.5 Phosphorus Level 3.0 Magnesium Level 2.5 Medications Medication Current Medications IV Flush (NS 3 ml) 3 ml PER PROTOCOL IV ; Start 05/18/19 at 02:00 Ondansetron HCl (Zofran Inj) 4 mg Q6H PRN IV NAUSEA/VOMITING; Start 05/18/19 at 02:00 Acetaminophen (Tylenol Tab) 650 mg Q6H PRN PO .PAIN 1-3 OR TEMP; Start 05/18/19 at 02:00 Albuterol/ Ipratropium (Duoneb) 3 ml Q2H RESP THERAPY PRN HHN wheezing; Start 05/18/19 at 09:30 Hydralazine HCl (Apresoline) 10 mg Q4H PRN IV sbp >160 Last administered on 05/29/19at 13:43; Admin Dose 10 MG; Start 05/18/19 at 11:00 Clopidogrel Bisulfate (plaVIX) 75 mg DAILY GTB Last administered on 05/30/19at 09:09; Admin Dose 75 MG; Start 05/18/19 at 11:00 IV Flush (NS 10 ml) 10 ml PRN PRN IV FLUSH LINE; Start 05/18/19 at 17:30 Lansoprazole (Prevacid) 30 mg DAILY@06 GTB Last administered on 05/30/19at 05:08; Admin Dose 30 MG; Start 05/21/19 at 06:00 Albuterol (Ventolin Hfa) 4 puff Q6H RESP THERAPY INH Last administered on 05/30/19 08:25; Admin Dose 4 PUFF; Start 05/21/19 at 20:00 Ipratropium [place] (Atrovent Hfa) 4 puff Q6H RESP THERAPY INH Last administered on 05/30/19 08:25; Admin Dose 4 PUFF; Start 05/21/19 at 20:00 Metoprolol Tartrate (Lopressor) 5 mg Q4 PRN IV SBP > 160 Last administered on 05/22/19at 01:59; Admin Dose 5 MG; Start 05/22/19 at 02:00 Morphine Sulfate (morphine) 3 mg Q4H PRN IV SEVERE PAIN LEVEL 7-10 Last administered on 05/29/19at 15:21; Admin Dose 3 MG; Start 05/22/19 at 02:00 Insulin Aspart (Novolog Insulin Pen) NOVOLOG *MILD* ALGORI... Q4 SC Last administered on 05/30/19at 04:34; Admin Dose 1 UNIT; Start 05/23/19 at 17:00 Miscellaneous Information 1 ea NOTE XX ; Start 05/23/19 at 16:00 Glucose (Glutose) 15 gm Q15M PRN PO DECREASED GLUCOSE; Start 05/23/19 at 16:00 Glucose (Glutose) 22.5 gm Q15M PRN PO DECREASED GLUCOSE; Start 05/23/19 at 16:00 Dextrose (D50w Syringe) 25 ml Q15M PRN IV DECREASED GLUCOSE; Start 05/23/19 at 16:00 Dextrose (D50w Syringe) 50 ml Q15M PRN IV DECREASED GLUCOSE; Start 05/23/19 at 16:00 Glucagon (Glucagen) 1 mg Q15M PRN IM DECREASED GLUCOSE; Start 05/23/19 at 16:00 Glucose (Glutose) 15 gm Q15M PRN BUCCAL DECREASED GLUCOSE; Start 05/23/19 at 16:00 Atorvastatin Calcium (Lipitor) 20 mg HS GTB Last administered on 05/29/19at 20:46; Admin Dose 20 MG; Start 05/26/19 at 21:00 Losartan Potassium (Cozaar) 25 mg BID GTB Last administered on 05/30/19 09:09; Admin Dose 25 MG; Start 05/26/19 at 09:00 Fluconazole (Diflucan) 100 mg DAILY GTB Last administered on 05/30/19 09:09; Admin Dose 100 MG; Start 05/26/19 at 13:30 Amlodipine Besylate (Norvasc) 5 mg DAILY GTB Last administered on 05/30/19 09:09; Admin Dose 5 MG; Start 05/27/19 at 09:00 Lactobacillus Acidophilus/ Rhamnosus (Culturelle) 1 cap TID GTB Last administered on 05/30/19 09:09; Admin Dose 1 CAP; Start 05/27/19 at 21:00 Propofol 100 ml @ 2.055 mls/ hr Q12H IV Last administered on 05/30/19 07:54; Admin Dose 10.275 MLS/HR; Start 05/29/19 at 16:30 Methylprednisolone Sodium Succinate (Solu-Medrol) 30 mg BID IV ; Start 05/30/19 at 21:00 Insulin Human NPH (Humulin N) 12 unit BID SC ; Start 05/30/19 at 21:00 EDGARD CLARKE MD May 30, 2019 13:39
--- NOTE | 2019-05-30 15:43 | PN ---
DATE: 05/30/2019 SUBJECTIVE: The patient did not tolerate weaning again, he is intubated, sedated, in no distress, af ebrile. WBC today 12.2, platelets 286, neutrophils 91.6, BUN 31, creatinine 0.49. Blood culture sent yesterday negative. INDWELLINGS: Trach, PEG, Hernández, PICC line. PHYSICAL EXAMINATION: GENERAL: This is a chronically ill-appearing, fragile, elderly man who is in no distress. HEENT: Head atraumatic, normocephalic. NECK: Supple. Tracheostomy present. CHEST: Rise symmetrical. Breath sounds diminished to bases. HEART: S1, S2. ABDOMEN: Soft, bowel tones present. ASSESSMENT: 1. Respiratory failure. 2. Status post pneumonia. 3. Chronic obstructive pulmonary disease. 4. Encephalopathy. 5. Diabetes. 6. Ongoing leukocytosis, possibly steroid induced. PLAN: The patient remains hemodynamically stable. He is still on fluconazole for [place] albicans t hat he grew in the sputum. He had multiple weaning attempts from ventilator and failed that per pulm onary recommendations, he may require tracheostomy. Pending urine cultures. Dictated By: K[employer]T [employer]LL[employer] DIRECTOR for FROY HURT MD NI/NTS Conf#: [id number] DID#: [id number] CC: KRISTIN BASS MD;*EndCC*
[2019-05-30] MEDS: ATORVASTATIN 20 MG TAB GTB SCH (20:12)
[2019-05-30] MEDS: NPH, HUMAN INSULIN ISOPHANE 3ML VIAL SC SCH (20:24)
--- NOTE | 2019-05-30 22:04 | CONS ---
Assessment/Plan Assessment/Plan Hospital Course (Demo Recall) Respiratory failure, status post intubation History of hypertension with labile blood pressure currently Encephalopathy Preserved left ventricular ejection fraction COPD Acute kidney injury Blood pressure remains labile, on IV sedatives is likely contributing factor. Holding parameters on antihypertensives, PRN antihypertensives in the interim Antibiotics as per primary team Vent management as per pulmonary Consultation Date/Type/Reason Admit Date/Time May 18, 2019 at 00:50 Initial Consult Date 05/18/19 Type of Consult Cardiology Requesting Provider: VIRGEN MCQUEEN Date/Time of Note DATE: 05/30/19 TIME: 22:03 24 HR Interval Summary Free Text/Dictation sedated and intubated Exam/Review of Systems Vital Signs Vitals Vital Signs Date Temp Pulse Resp B/P (MAP) Pulse Ox O2 O2 Flow FiO2 Time Delivery Rate 05/30/19 58 12 100 60 21:35 05/30/19 101/46 21:30 (64) 05/30/19 Mechanical 21:00 Ventilator 05/30/19 98.1 20:00 Intake and Output 05/29/19 05/29/19 05/30/19 1515:00 23:00 07:00 IntakeIntake Total 66.800 ml 387.185 ml 582.200 ml OutputOutput Total 0 ml 210 ml 190 ml BalanceBalance 66.800 ml 177.185 ml 392.200 ml Exam Exam sedated and intubated Head: normocephalic ENMT: intubated Respiratory: other (course bs, no wheeze) Cardiovascular: regular rate and rhythm (s1s2) Gastrointestinal: soft, non-tender, bowel sounds Extremities: edema Labs Result Diagram: 05/30/19 0500 05/30/19 0500 Results 24hrs Laboratory Tests Test 05/30/19 00:32 05/30/19 04:19 05/30/19 05:00 05/30/19 09:07 Bedside Glucose 156 174 138 White Blood Count 12.2 H Red Blood Count 3.70 L Hemoglobin 11.3 L Hematocrit 35.4 L Mean Corpuscular 95.7 Volume Mean Corpuscular 30.5 Hemoglobin Mean Corpuscular 31.9 L Hemoglobin Concent Red Cell 14.4 Distribution Width Platelet Count 286 Mean Platelet Volume 10.6 H Immature 0.700 H Granulocytes % Neutrophils % 91.6 H Lymphocytes % 1.6 L Monocytes % 5.9 Eosinophils % 0.0 Basophils % 0.2 Nucleated Red Blood 0.0 Cells % Immature 0.080 H Granulocytes # Neutrophils # 11.2 H Lymphocytes # 0.2 L Monocytes # 0.7 Eosinophils # 0.0 Basophils # 0.0 Nucleated Red Blood 0.0 Cells # Sodium Level 137 Potassium Level 4.5 Chloride Level 102 Carbon Dioxide Level 35 H Anion Gap 0 L Blood Urea Nitrogen 31 H Creatinine 0.49 L Est Glomerular Filtrat Rate mL/min Glucose Level 179 Calcium Level 8.5 Phosphorus Level 3.0 Magnesium Level 2.5 Test 05/30/19 13:35 05/30/19 16:46 05/30/19 20:03 Bedside Glucose 147 178 142 Medications Medications Current Medications IV Flush (NS 3 ml) 3 ml PER PROTOCOL IV ; Start 05/18/19 at 02:00 Ondansetron HCl (Zofran Inj) 4 mg Q6H PRN IV NAUSEA/VOMITING; Start 05/18/19 at 02:00 Acetaminophen (Tylenol Tab) 650 mg Q6H PRN PO .PAIN 1-3 OR TEMP; Start 05/18/19 at 02:00 Albuterol/ Ipratropium (Duoneb) 3 ml Q2H RESP THERAPY PRN HHN wheezing; Start 05/18/19 at 09:30 Hydralazine HCl (Apresoline) 10 mg Q4H PRN IV sbp >160 Last administered on 05/29/19at 13:43; Admin Dose 10 MG; Start 05/18/19 at 11:00 Clopidogrel Bisulfate (plaVIX) 75 mg DAILY GTB Last administered on 05/30/19at 09:09; Admin Dose 75 MG; Start 05/18/19 at 11:00 IV Flush (NS 10 ml) 10 ml PRN PRN IV FLUSH LINE; Start 05/18/19 at 17:30 Lansoprazole (Prevacid) 30 mg DAILY@06 GTB Last administered on 05/30/19at 05:08; Admin Dose 30 MG; Start 05/21/19 at 06:00 Albuterol (Ventolin Hfa) 4 puff Q6H RESP THERAPY INH Last administered on 05/30/19at 19:41; Admin Dose 4 PUFF; Start 05/21/19 at 20:00 Ipratropium [place] (Atrovent Hfa) 4 puff Q6H RESP THERAPY INH Last administered on 05/30/19 19:42; Admin Dose 4 PUFF; Start 05/21/19 at 20:00 Metoprolol Tartrate (Lopressor) 5 mg Q4 PRN IV SBP > 160 Last administered on 05/22/19at 01:59; Admin Dose 5 MG; Start 05/22/19 at 02:00 Morphine Sulfate (morphine) 3 mg Q4H PRN IV SEVERE PAIN LEVEL 7-10 Last admin istered on 05/29/19 15:21; Admin Dose 3 MG; Start 05/22/19 at 02:00 Insulin Aspart (Novolog Insulin Pen) NOVOLOG *MILD* ALGORI... Q4 SC Last administered on 05/30/19 20:19; Admin Dose 1 UNIT; Start 05/23/19 at 17:00 Miscellaneous Information 1 ea NOTE XX ; Start 05/23/19 at 16:00 Glucose (Glutose) 15 gm Q15M PRN PO DECREASED GLUCOSE; Start 05/23/19 at 16:00 Glucose (Glutose) 22.5 gm Q15M PRN PO DECREASED GLUCOSE; Start 05/23/19 at 16:00 Dextrose (D50w Syringe) 25 ml Q15M PRN IV DECREASED GLUCOSE; Start 05/23/19 at 16:00 Dextrose (D50w Syringe) 50 ml Q15M PRN IV DECREASED GLUCOSE; Start 05/23/19 at 16:00 Glucagon (Glucagen) 1 mg Q15M PRN IM DECREASED GLUCOSE; Start 05/23/19 at 16:00 Glucose (Glutose) 15 gm Q15M PRN BUCCAL DECREASED GLUCOSE; Start 05/23/19 at 16:00 Atorvastatin Calcium (Lipitor) 20 mg HS GTB Last administered on 05/30/19at 20:12; Admin Dose 20 MG; Start 05/26/19 at 21:00 Losartan Potassium (Cozaar) 25 mg BID GTB Last administered on 05/30/19 09:09; Admin Dose 25 MG; Start 05/26/19 at 09:00 Fluconazole (Diflucan) 100 mg DAILY GTB Last administered on 05/30/19 09:09; Admin Dose 100 MG; Start 05/26/19 at 13:30 Amlodipine Besylate (Norvasc) 5 mg DAILY GTB Last administered on 05/30/19 09:09; Admin Dose 5 MG; Start 05/27/19 at 09:00 Lactobacillus Acidophilus/ Rhamnosus (Culturelle) 1 cap TID GTB Last administered on 05/30/19 20:11; Admin Dose 1 CAP; Start 05/27/19 at 21:00 Propofol 100 ml @ 2.055 mls/ hr Q12H IV Last administered on 05/30/19 16:48; Admin Dose 10.275 MLS/HR; Start 05/29/19 at 16:30 Methylprednisolone Sodium Succinate (Solu-Medrol) 30 mg BID IV Last administered on 05/30/19 20:12; Admin Dose 30 MG; Start 05/30/19 at 21:00 Insulin Human NPH (Humulin N) 12 unit BID SC Last administered on 05/30/19 20:24; Admin Dose 12 UNIT; Start 05/30/19 at 21:00 Bao Garza DO May 30, 2019 22:04
[2019-05-31] VITALS (43 sets, daily range): BP systolic 87–142; BP diastolic 43–62; PULSE 55–79; RESP 12–21
[2019-05-31] MEDS: PROPOFOL 100 ML IV SCH ×4 (00:38→19:36)
[2019-05-31] MEDS: INSULIN ASPART [NOVOLOG] 3 ML PEN SC SCH ×6 (00:48→20:31)
[2019-05-31] MEDS: ALBUTEROL HFA 8 GM INHALER INH SCH ×4 (01:58→20:02)
[2019-05-31] MEDS: IPRATROPIUM (HFA) 12.9 GM INHALER INH SCH ×4 (01:59→20:02)
[2019-05-31] MEDS: LANSOPRAZOLE 30 MG CAP GTB SCH (05:51)
[2019-05-31] MEDS: LACTOBACILLUS RHAMNOSUS CAP GTB SCH ×3 (08:39→20:26)
[2019-05-31] MEDS: LOSARTAN 25 MG TAB GTB SCH ×2 (08:39→20:33)
[2019-05-31] MEDS: FLUCONAZOLE 100 MG TAB GTB SCH (08:39)
[2019-05-31] MEDS: CLOPIDOGREL 75 MG TAB GTB SCH (08:39)
[2019-05-31] MEDS: AMLODIPINE 5 MG TAB GTB SCH (08:39)
[2019-05-31] MEDS: METHYLPREDNISOLONE 40 MG INJ IV SCH ×2 (08:39→20:27)
[2019-05-31] MEDS: NPH, HUMAN INSULIN ISOPHANE 3ML VIAL SC SCH ×2 (08:48→20:30)
--- NOTE | 2019-05-31 08:51 | CONS ---
Assessment/Plan Assessment/Plan Assessment/Plan (Daily) Patient is currently on propofol 25 mics per kilogram per minute. Ventilator setting; AC of 12, tidal volume 500, PEEP of 5, 60% FiO2. Assessment and recommendations; 1. Patient admitted with severe hypercapnic respiratory failure requiring intubation. Has failed one self extubation attempt as well as multiple weaning trials from ventilator. 2. Status post treatment for presumed pneumonia. 3. Worsening hypoxemia. Etiology is unclear. 4. History of diabetes and hypertension. 5. Apparently patient has refused tracheostomy. Obtain chest x-ray. Repeat ABG as well. Patient's niece is coming from out of state and will help us and decide about further care regarding tracheostomy versus palliative care. 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 Consultation Date/Type/Reason Admit Date/Time May 18, 2019 at 00:50 Initial Consult Date 05/18/19 Type of Consult Pulmonary/critical care Patient is an 84-year-old gentleman who was sent over from care home with altered mental status and severe hypoxemia. Upon evaluation patient was found to be in severe hypercapnic respiratory failure with pneumonia. Patient was intubated. By the time I saw him in ER, patient is orally intubated and is currently under paralytic and sedative effect. Patient however did not appear to be in any distress. History has been obtained from medical records. Past medical history; 1. Apparently advanced COPD. 2. Dementia. But the patient according to medical records is ambulatory and is usually awake and alert. Medications; reviewed. Allergies; none. Family history; not available. Social history; patient does have history of heavy smoking. Occupational history; not available. Review of system; not able to be obtained. General exam; elderly male, orally intubated, currently sedated. No distress noted. Requesting Provider: VIRGEN MCQUEEN Date/Time of Note DATE: 05/31/19 TIME: 08:49 24 HR Interval Summary Free Text/Dictation Patient's condition is critical. Patient was given a sedation vacation yesterday and apparently patient has refused tracheostomy. Severe tachypnea of sedation patient had to be re-sedated. Patient has remained hemodynamically stable. General exam; elderly male, orally intubated, sedated, currently no distress. Exam/Review of Systems Exam Vitals Vital Signs Date Temp Pulse Resp B/P (MAP) Pulse Ox O2 O2 Flow FiO2 Time Delivery Rate 05/31/19 98.0 56 12 91/46 (61) 98 Mechanical 07:00 Ventilator 05/31/19 60 05:26 Intake and Output 05/30/19 05/30/19 05/31/19 1515:00 23:00 07:00 IntakeIntake Total 641.925 ml 532.200 ml 523.980 ml OutputOutput Total 650 ml 315 ml 210 ml BalanceBalance -8.075 ml 217.200 ml 313.980 ml Exam H ENT exam; supple neck, JVD difficult to see. No lymphadenopathy. Midline trachea. No thyromegaly. Patient is edentulous. Orally intubated. Orogastric tube in place. Chest exam; diminished breath sounds throughout. S1-S2 audible, no murmurs. Regular rhythm. Abdomen exam; soft, no organomegaly. Nondistended. Bowel sounds audible. Extremity exam; trace peripheral edema in upper extremities with no edema in lower extremities. ASSIST[employer] exam; patient is sedated. Results Result Diagram: 05/31/19 0405 05/31/19 0405 Results 24hrs Laboratory Tests Test 05/30/19 09:07 05/30/19 13:35 05/30/19 16:46 05/30/19 20:03 Bedside Glucose 138 147 178 142 Test 05/31/19 00:24 05/31/19 04:05 05/31/19 05:34 Bedside Glucose 154 192 White Blood Count 10.8 Red Blood Count 3.59 L Hemoglobin 11.0 L Hematocrit 34.9 L Mean Corpuscular 97.2 Volume Mean Corpuscular 30.6 Hemoglobin Mean Corpuscular 31.5 L Hemoglobin Concent Red Cell 14.5 Distribution Width Platelet Count 297 Mean Platelet Volume 10.5 H Immature 0.500 H Granulocytes % Neutrophils % 92.0 H Lymphocytes % 1.4 L Monocytes % 6.0 Eosinophils % 0.0 Basophils % 0.1 Nucleated Red Blood 0.0 Cells % Immature 0.050 H Granulocytes # Neutrophils # 9.9 H Lymphocytes # 0.2 L Monocytes # 0.7 Eosinophils # 0.0 Basophils # 0.0 Nucleated Red Blood 0.0 Cells # Sodium Level 139 Potassium Level 4.7 Chloride Level 103 Carbon Dioxide Level 35 H Anion Gap 1 L Blood Urea Nitrogen 32 H Creatinine 0.51 L Est Glomerular Filtrat Rate mL/min Glucose Level 174 Calcium Level 8.4 Phosphorus Level 3.3 Magnesium Level 2.6 H Medications Medication Current Medications IV Flush (NS 3 ml) 3 ml PER PROTOCOL IV ; Start 05/18/19 at 02:00 Ondansetron HCl (Zofran Inj) 4 mg Q6H PRN IV NAUSEA/VOMITING; Start 05/18/19 at 02:00 Acetaminophen (Tylenol Tab) 650 mg Q6H PRN PO .PAIN 1-3 OR TEMP; Start 05/18/19 at 02:00 Albuterol/ Ipratropium (Duoneb) 3 ml Q2H RESP THERAPY PRN HHN wheezing; Start 05/18/19 at 09:30 Hydralazine HCl (Apresoline) 10 mg Q4H PRN IV sbp >160 Last administered on 05/29/19 13:43; Admin Dose 10 MG; Start 05/18/19 at 11:00 Clopidogrel Bisulfate (plaVIX) 75 mg DAILY GTB Last administered on 05/30/19 09:09; Admin Dose 75 MG; Start 05/18/19 at 11:00 IV Flush (NS 10 ml) 10 ml PRN PRN IV FLUSH LINE; Start 05/18/19 at 17:30 Lansoprazole (Prevacid) 30 mg DAILY@06 GTB Last administered on 05/31/19 05:51; Admin Dose 30 MG; Start 05/21/19 at 06:00 Albuterol (Ventolin Hfa) 4 puff Q6H RESP THERAPY INH Last administered on 05/31/19 01:58; Admin Dose 4 PUFF; Start 05/21/19 at 20:00 Ipratropium [place] (Atrovent Hfa) 4 puff Q6H RESP THERAPY INH Last administered on 05/31/19 01:59; Admin Dose 4 PUFF; Start 05/21/19 at 20:00 Metoprolol Tartrate (Lopressor) 5 mg Q4 PRN IV SBP > 160 Last administered on 05/22/19 01:59; Admin Dose 5 MG; Start 05/22/19 at 02:00 Morphine Sulfate (morphine) 3 mg Q4H PRN IV SEVERE PAIN LEVEL 7-10 Last administered on 05/29/19 15:21; Admin Dose 3 MG; Start 05/22/19 at 02:00 Insulin Aspart (Novolog Insulin Pen) NOVOLOG *MILD* ALGORI... Q4 SC Last administered on 05/31/19 05:56; Admin Dose 2 UNIT; Start 05/23/19 at 17:00 Miscellaneous Information 1 ea NOTE XX ; Start 05/23/19 at 16:00 Glucose (Glutose) 15 gm Q15M PRN PO DECREASED GLUCOSE; Start 05/23/19 at 16:00 Glucose (Glutose) 22.5 gm Q15M PRN PO DECREASED GLUCOSE; Start 05/23/19 at 16:00 Dextrose (D50w Syringe) 25 ml Q15M PRN IV DECREASED GLUCOSE; Start 05/23/19 at 16:00 Dextrose (D50w Syringe) 50 ml Q15M PRN IV DECREASED GLUCOSE; Start 05/23/19 at 16:00 Glucagon (Glucagen) 1 mg Q15M PRN IM DECREASED GLUCOSE; Start 05/23/19 at 16:00 Glucose (Glutose) 15 gm Q15M PRN BUCCAL DECREASED GLUCOSE; Start 05/23/19 at 16:00 Atorvastatin Calcium (Lipitor) 20 mg HS GTB Last administered on 05/30/19 20:12; Admin Dose 20 MG; Start 05/26/19 at 21:00 Losartan Potassium (Cozaar) 25 mg BID GTB Last administered on 05/30/19 09:09; Admin Dose 25 MG; Start 05/26/19 at 09:00 Fluconazole (Diflucan) 100 mg DAILY GTB Last administered on 05/30/19 09:09; Admin Dose 100 MG; Start 05/26/19 at 13:30 Amlodipine Besylate (Norvasc) 5 mg DAILY GTB Last administered on 05/30/19 09:09; Admin Dose 5 MG; Start 05/27/19 at 09:00 Lactobacillus Acidophilus/ Rhamnosus (Culturelle) 1 cap TID GTB Last administered on 05/30/19 20:11; Admin Dose 1 CAP; Start 05/27/19 at 21:00 Propofol 100 ml @ 2.055 mls/ hr Q12H IV Last administered on 05/31/19 05:52; Admin Dose 12.33 MLS/HR; Start 05/29/19 at 16:30 Methylprednisolone Sodium Succinate (Solu-Medrol) 30 mg BID IV Last administered on 7/30/19at 20:12; Admin Dose 30 MG; Start 05/30/19 at 21:00 Insulin Human NPH (Humulin N) 12 unit BID SC Last administered on 05/30/19at 20:24; Admin Dose 12 UNIT; Start 05/30/19 at 21:00 JUAN F MATA May 31, 2019 08:51
[2019-05-31] MEDS ORDERED: VANCOMYCIN IV PER PHARMACY XX SCH (09:30)
--- NOTE | 2019-05-31 10:02 | CONS ---
Assessment/Plan Assessment/Plan Assessment/Plan (Daily) 1. acute hyperrkalemia - resolved 2. Acute kidney injury due to ATN from septic shock + prerenal azotemia - improved 3. acute hypercapnic respiratory failure 2/2 Septic shock and PNA,, intubated on ventilator 4. H/o HTN 5. h/o HL 6. Septic shock due to bilateral PNA 7. Hypotension and Bradycardia - now stable 8. Anemia- Hgb 11.7- stable Plan: BUN/Cr improved to 32/0.51 other electrolytes stable , -IV solu-medrol 30mg IV BID Amlodipine 5 mg PO daily Cozaar 25 mg pO BID , IV hydralazine prn IV abx vancomycin, PO fluconazole , Renally dose all abx and monitor jennifer ctorlytes, ID following Failed CPAP trial today, pulmonary has been following - palliative care has been consulted on the case, Niece coming from out of state to help decide in decision making will follow up Consultation Date/Type/Reason Admit Date/Time May 18, 2019 at 00:50 Initial Consult Date 05/18/19 Type of Consult NEPHROLOGY Requesting Provider: VIRGEN MCQUEEN Date/Time of Note DATE: 05/31/19 TIME: 10:02 24 HR Interval Summary Free Text/Dictation pt remains intubated on ventilator, [place] weaning, end stage COPD Exam/Review of Systems Exam Vitals Vital Signs Date Temp Pulse Resp B/P (MAP) Pulse Ox O2 O2 Flow FiO2 Time Delivery Rate 05/31/19 59 12 110/52 100 Mechanical 09:00 (71) Ventilator 05/31/19 98.0 07:00 05/31/19 60 05:26 Intake and Output 05/30/19 05/30/19 05/31/19 1515:00 23:00 07:00 IntakeIntake Total 641.925 ml 532.200 ml 523.980 ml OutputOutput Total 650 ml 315 ml 210 ml BalanceBalance -8.075 ml 217.200 ml 313.980 ml Exam Constitutional: non-verbal ENMT: intubated Neck: supple, non-tender Respiratory: congested cough, crackles/rales, diminished breath sounds Cardiovascular: regular rate and rhythm Gastrointestinal: soft, non-tender Musculoskeletal: muscle weakness, swelling (1+ edema ) Neurological: other (intubated sedated on ventilator ) Results Result Diagram: 05/31/19 0405 05/31/19 0405 Results 24hrs Laboratory Tests Test 05/30/19 13:35 05/30/19 16:46 05/30/19 20:03 05/31/19 00:24 Bedside Glucose 147 178 142 154 Test 05/31/19 04:05 05/31/19 05:34 05/31/19 08:03 05/31/19 08:37 White Blood Count 10.8 Red Blood Count 3.59 L Hemoglobin 11.0 L Hematocrit 34.9 L Mean Corpuscular 97.2 Volume Mean Corpuscular 30.6 Hemoglobin Mean Corpuscular 31.5 L Hemoglobin Concen t Red Cell 14.5 Distribution Width Platelet Count 297 Mean Platelet 10.5 H Volume Immature 0.500 H Granulocytes % Neutrophils % 92.0 H Lymphocytes % 1.4 L Monocytes % 6.0 Eosinophils % 0.0 Basophils % 0.1 Nucleated Red 0.0 Blood Cells % Immature 0.050 H Granulocytes # Neutrophils # 9.9 H Lymphocytes # 0.2 L Monocytes # 0.7 Eosinophils # 0.0 Basophils # 0.0 Nucleated Red 0.0 Blood Cells # Sodium Level 139 Potassium Level 4.7 Chloride Level 103 Carbon Dioxide 35 H Level Anion Gap 1 L Blood Urea 32 H Nitrogen Creatinine 0.51 L Est Glomerular Filtrat Rate mL/min Glucose Level 174 Calcium Level 8.4 Phosphorus Level 3.3 Magnesium Level 2.6 H Bedside Glucose 192 163 Blood Gas Blood arterial Specimen Source Arterial Blood 05/31/2019 8:39:0 Date Drawn 9 AM Arterial Blood pH 7.445 (Temp corrected) Arterial Blood 50.0 H pCO2 (Temp correct) Arterial Blood 187.3 H pO2 (Temp corrected) Arterial Blood 33.6 H HCO3 Arterial Blood 8.2 H Base Excess Arterial Blood 98.9 Oxygen Saturation Joe Test ACCEPTAB Arterial Blood Right Radial Gas Puncture Site Arterial 0.3 Blood Carboxyhemo globin Arterial Blood 0.4 Methemoglobin Blood Gas A-a O2 185.5 H Differential Oxyhemoglobin 98.2 Percent Blood Gas 37.0 Temperature Blood Gas 12.0 Respiration Rate Blood Gas Actual 13 Respiration Rate Blood Gas VENT - AC Modality FiO2 60.0 Blood Gas Tidal 500.0 Volume Blood Gas Low 5.0 PEEP Setting Blood Gas TM Notified Whom Blood Gas 05/31/2019 8:59:5 Notified Time 0 AM Medications Medication Current Medications IV Flush (NS 3 ml) 3 ml PER PROTOCOL IV ; Start 05/18/19 at 02:00 Ondansetron HCl (Zofran Inj) 4 mg Q6H PRN IV NAUSEA/VOMITING; Start 05/18/19 at 02:00 Acetaminophen (Tylenol Tab) 650 mg Q6H PRN PO .PAIN 1-3 OR TEMP; Start 05/18/19 at 02:00 Albuterol/ Ipratropium (Duoneb) 3 ml Q2H RESP THERAPY PRN HHN wheezing; Start 05/18/19 at 09:30 Hydralazine HCl (Apresoline) 10 mg Q4H PRN IV sbp >160 Last administered on 05/29/19 13:43; Admin Dose 10 MG; Start 05/18/19 at 11:00 Clopidogrel Bisulfate (plaVIX) 75 mg DAILY GTB Last administered on 05/31/19 08:39; Admin Dose 75 MG; Start 05/18/19 at 11:00 IV Flush (NS 10 ml) 10 ml PRN PRN IV FLUSH LINE; Start 05/18/19 at 17:30 Lansoprazole (Prevacid) 30 mg DAILY@06 GTB Last administered on 05/31/19 05:51; Admin Dose 30 MG; Start 05/21/19 at 06:00 Albuterol (Ventolin Hfa) 4 puff Q6H RESP THERAPY INH Last administered on 05/31/19 09:12; Admin Dose 4 PUFF; Start 05/21/19 at 20:00 Ipratropium [place] (Atrovent Hfa) 4 puff Q6H RESP THERAPY INH Last administered on 05/31/19 09:12; Admin Dose 4 PUFF; Start 05/21/19 at 20:00 Metoprolol Tartrate (Lopressor) 5 mg Q4 PRN IV SBP > 160 Last administered on 05/22/19 01:59; Admin Dose 5 MG; Start 05/22/19 at 02:00 Morphine Sulfate (morphine) 3 mg Q4H PRN IV SEVERE PAIN LEVEL 7-10 Last administered on 05/29/19 15:21; Admin Dose 3 MG; Start 05/22/19 at 02:00 Insulin Aspart (Novolog Insulin Pen) NOVOLOG *MILD* ALGORI... Q4 SC Last administered on 05/31/19 08:48; Admin Dose 1 UNIT; Start 05/23/19 at 17:00 Miscellaneous Information 1 ea NOTE XX ; Start 05/23/19 at 16:00 Glucose (Glutose) 15 gm Q15M PRN PO DECREASED GLUCOSE; Start 05/23/19 at 16:00 Glucose (Glutose) 22.5 gm Q15M PRN PO DECREASED GLUCOSE; Start 05/23/19 at 16:00 Dextrose (D50w Syringe) 25 ml Q15M PRN IV DECREASED GLUCOSE; Start 05/23/19 at 16:00 Dextrose (D50w Syringe) 50 ml Q15M PRN IV DECREASED GLUCOSE; Start 05/23/19 at 16:00 Glucagon (Glucagen) 1 mg Q15M PRN IM DECREASED GLUCOSE; Start 05/23/19 at 16:00 Glucose (Glutose) 15 gm Q15M PRN BUCCAL DECREASED GLUCOSE; Start 05/23/19 at 16:00 Atorvastatin Calcium (Lipitor) 20 mg HS GTB Last administered on 05/30/19at 20:12; Admin Dose 20 MG; Start 05/26/19 at 21:00 Losartan Potassium (Cozaar) 25 mg BID GTB Last administered on 05/31/19 08:39; Admin Dose 25 MG; Start 05/26/19 at 09:00 Fluconazole (Diflucan) 100 mg DAILY GTB Last administered on 05/31/19 08:39; Admin Dose 100 MG; Start 05/26/19 at 13:30 Amlodipine Besylate (Norvasc) 5 mg DAILY GTB Last administered on 05/31/19 08:39; Admin Dose 5 MG; Start 05/27/19 at 09:00 Lactobacillus Acidophilus/ Rhamnosus (Culturelle) 1 cap TID GTB Last administered on 05/31/19 08:39; Admin Dose 1 CAP; Start 05/27/19 at 21:00 Propofol 100 ml @ 2.055 mls/ hr Q12H IV Last administered on 05/31/19 05:52; Admin Dose 12.33 MLS/HR; Start 05/29/19 at 16:30 Methylprednisolone Sodium Succinate (Solu-Medrol) 30 mg BID IV Last administered on 05/31/19 08:39; Admin Dose 30 MG; Start 05/30/19 at 21:00 Insulin Human NPH (Humulin N) 12 unit BID SC Last administered on 05/31/19at 08:48; Admin Dose 12 UNIT; Start 05/30/19 at 21:00 Vancomycin HCl (Vanco Iv Per Pharmacy) VANCOMYCIN PER PHARMACY PER PROTOCOL XX ; Start 05/31/19 at 09:30; Status UNEDGARD ARTEAGA MD May 31, 2019 10:02
--- NOTE | 2019-05-31 10:17 | PN ---
Date/Time of Note Date/Time of Note DATE: 05/31/19 TIME: 10:16 Objective Vitals Vital Signs Date Temp Pulse Resp B/P (MAP) Pulse Ox O2 O2 Flow FiO2 Time Delivery Rate 05/31/19 55 12 88/46 (60) 100 Mechanical 10:00 Ventilator 05/31/19 60 08:00 05/31/19 98.0 07:00 Intake and Output 05/30/19 05/30/19 05/31/19 1515:00 23:00 07:00 IntakeIntake Total 641.925 ml 532.200 ml 523.980 ml OutputOutput Total 650 ml 315 ml 210 ml BalanceBalance -8.075 ml 217.200 ml 313.980 ml Results Result Diagram: 05/31/195 05/31/195 Medications Medications Current Medications IV Flush (NS 3 ml) 3 ml PER PROTOCOL IV ; Start 05/18/19 at 02:00 Ondansetron HCl (Zofran Inj) 4 mg Q6H PRN IV NAUSEA/VOMITING; Start 05/18/19 at 02:00 Acetaminophen (Tylenol Tab) 650 mg Q6H PRN PO .PAIN 1-3 OR TEMP; Start 05/18/19 at 02:00 Albuterol/ Ipratropium (Duoneb) 3 ml Q2H RESP THERAPY PRN HHN wheezing; Start 05/18/19 at 09:30 Hydralazine HCl (Apresoline) 10 mg Q4H PRN IV sbp >160 Last administered on 05/29/19at 13:43; Admin Dose 10 MG; Start 05/18/19 at 11:00 Clopidogrel Bisulfate (plaVIX) 75 mg DAILY GTB Last administered on 05/31/19at 08:39; Admin Dose 75 MG; Start 05/18/19 at 11:00 IV Flush (NS 10 ml) 10 ml PRN PRN IV FLUSH LINE; Start 05/18/19 at 17:30 Lansoprazole (Prevacid) 30 mg DAILY@06 GTB Last administered on 05/31/19at 05:51; Admin Dose 30 MG; Start 05/21/19 at 06:00 Albuterol (Ventolin Hfa) 4 puff Q6H RESP THERAPY INH Last administered on 05/31/19at 09:12; Admin Dose 4 PUFF; Start 05/21/19 at 20:00 Ipratropium [place] (Atrovent Hfa) 4 puff Q6H RESP THERAPY INH Last administered on 05/31/19at 09:12; Admin Dose 4 PUFF; Start 05/21/19 at 20:00 Metoprolol Tartrate (Lopressor) 5 mg Q4 PRN IV SBP > 160 Last administered on 05/22/19at 01:59; Admin Dose 5 MG; Start 05/22/19 at 02:00 Morphine Sulfate (morphine) 3 mg Q4H PRN IV SEVERE PAIN LEVEL 7-10 Last administered on 05/29/19at 15:21; Admin Dose 3 MG; Start 05/22/19 at 02:00 Insulin Aspart (Novolog Insulin Pen) NOVOLOG *MILD* ALGORI... Q4 SC Last administered on 05/31/19at 08:48; Admin Dose 1 UNIT; Start 05/23/19 at 17:00 Miscellaneous Information 1 ea NOTE XX ; Start 05/23/19 at 16:00 Glucose (Glutose) 15 gm Q15M PRN PO DECREASED GLUCOSE; Start 05/23/19 at 16:00 Glucose (Glutose) 22.5 gm Q15M PRN PO DECREASED GLUCOSE; Start 05/23/19 at 16:00 Dextrose (D50w Syringe) 25 ml Q15M PRN IV DECREASED GLUCOSE; Start 05/23/19 at 16:00 Dextrose (D50w Syringe) 50 ml Q15M PRN IV DECREASED GLUCOSE; Start 05/23/19 at 16:00 Glucagon (Glucagen) 1 mg Q15M PRN IM DECREASED GLUCOSE; Start 05/23/19 at 16:00 Glucose (Glutose) 15 gm Q15M PRN BUCCAL DECREASED GLUCOSE; Start 05/23/19 at 16:00 Atorvastatin Calcium (Lipitor) 20 mg HS GTB Last administered on 05/30/19at 20:12; Admin Dose 20 MG; Start 05/26/19 at 21:00 Losartan Potassium (Cozaar) 25 mg BID GTB Last administered on 05/31/19at 08:39; Admin Dose 25 MG; Start 05/26/19 at 09:00 Fluconazole (Diflucan) 100 mg DAILY GTB Last administered on 05/31/19at 08:39; Admin Dose 100 MG; Start 05/26/19 at 13:30 Amlodipine Besylate (Norvasc) 5 mg DAILY GTB Last administered on 05/31/19 08:39; Admin Dose 5 MG; Start 05/27/19 at 09:00 Lactobacillus Acidophilus/ Rhamnosus (Culturelle) 1 cap TID GTB Last administered on 05/31/19 08:39; Admin Dose 1 CAP; Start 05/27/19 at 21:00 Propofol 100 ml @ 2.055 mls/ hr Q12H IV Last administered on 05/31/19 05:52; Admin Dose 12.33 MLS/HR; Start 05/29/19 at 16:30 Methylprednisolone Sodium Succinate (Solu-Medrol) 30 mg BID IV Last administe red on 05/31/19 08:39; Admin Dose 30 MG; Start 05/30/19 at 21:00 Insulin Human NPH (Humulin N) 12 unit BID SC Last administered on 05/31/19 08:48; Admin Dose 12 UNIT; Start 05/30/19 at 21:00 Vancomycin HCl (Vanco Iv Per Pharmacy) VANCOMYCIN PER PHARMACY PER PROTOCOL XX ; Start 05/31/19 at 09:30; Status UNV Vancomycin/Sodium Chloride 250 ml @ 83.333 mls/ hr ONCE IVPB ; Start 05/31/19 at 11:30; Stop 05/31/19 at 16:00 VTE Prophylaxis Risk score (from Nsg)>0 risk: 11 SCD applied (from Ns): Yes Lines/Catheters IV Catheter Type: Hernández in Place: No Assessment/Plan Hospital Course Subjective Patient intubated and sedated Objective Physical exam General: Patient is laying in bed intubated mentation: Patient is sedated Head: Normocephalic atraumatic Eyes: EOMI, pupils reactive to light Neck: Supple, nontender, midline Respiratory: Coarse to auscultation bilaterally Cardiovascular: bradycardic rate, no obvious murmurs Gastrointestinal: non-tender to palpation, bowel sounds heard. Neurological: Unable to fully assess Skin: No new skin lesions Assessment/Plan 1. Acute hypoxic respiratory failure - Will plan for CPAP daily and hopefully will be able to extubated to BIPAP - remains intubated on vent support - Pulm on board and appreciate recommendations. - Initial CT chest results noted with emphysema and bilateral effusions with atelectasis vs infiltrate 2. COPD exacerbation - currently on steroid taper and neb treatments leukocytosis, resolving -Continue antifungal, abx -Repeat blood cultures pending, 1/2 positive, possible contaminant , UA noted bacteremia -Possible contaminant however will need to treat empirically for now -IV vancomycin ordered, infectious disease recognitions appreciated 3. Acute toxic encephalopathy- stable - patient nodding/shaking head appropriately to questions when off sedation - CT head noted, no acute issues - Neurology consultation appreciated 4. Acute kidney injury- resolved - Nephrology consultation appreciated 5. Hypertension - continue home medications. BP remains stable 6. Mild cognitive impairment - Neurology on board - Baseline is alert and oriented x3, with some memory loss 7. Mild carotid stenosis, right ICA - Continue on Plavix and statin 8. Hyperglycemia- improved - A1c noted - secondary to steroids 9. Arrhythmia - cardiology aware - continue monitoring - electrolytes within normal limits 10. Disposition -Patient remains difficult to extubate, pulmonary feels we may need to perform tracheostomy, will discuss with patient when patient undergoing next sedation vacation. >40 minutes of critical care time spend with patient VIRGEN MCQUEEN May 31, 2019 10:17
[2019-05-31] MEDS ORDERED: VANCOMYCIN 1.25 GM/NS 250 ML 250 ML IVPB SCH (11:30)
--- NOTE | 2019-05-31 17:51 | PN ---
DATE: 05/31/2019 SUBJECTIVE: No acute changes. The patient remains on vent support. No fevers overnight. WBC 10.8, platelets 297, neutrophils 92, BUN 32, creatinine 0.51. MICROBIOLOGY: Blood cultures sent 2 days ago growing staph species, 1 out of 2 sets. DIAGNOSTICS: Chest x-ray this morning revealed bilateral lung base patchy consolidation as well as s mall bilateral pleural effusions. INDWELLINGS: Endotracheal tube, NG tube, Hernández catheter, PICC line. ANTIMICROBIALS: The patient is on vancomycin, started today. He is also on fluconazole day #6. PHYSICAL EXAMINATION: GENERAL: This is a chronically ill-appearing, elderly man who is in no distress. HEENT: Head atraumatic, normocephalic. NECK: Supple. CHEST: Rise symmetrical. Breath sounds diminished to bases. HEART: S1, S2. ABDOMEN: Soft, bowel sounds present. EXTREMITIES: With dependent trace edema. ASSESSMENT: 1. Acute hypoxemic respiratory failure. 2. Status post pneumonia. 3. Coagulase-negative staph bacteremia, likely contaminant. 4. [place] albicans positive sputum. 5. Diabetes. 6. Chronic obstructive pulmonary disease. PLAN: The patient remains hemodynamically stable. He failed multiple weanings per pulmonary recomme ndations. He will require tracheostomy, pending family arrival from out of state. Repeat blood cult ures. Dictated By: KURT SO RECRUITMENT COORDINATOR for FROY HURT MD NI/NTS Conf#: [id number] DID#: [id number] CC: KRISTIN BASS MD;*EndCC*
[2019-05-31] MEDS: ATORVASTATIN 20 MG TAB GTB SCH (20:26)
--- NOTE | 2019-05-31 21:30 | CONS ---
Assessment/Plan Assessment/Plan Hospital Course (Demo Recall) Respiratory failure, status post intubation History of hypertension with labile blood pressure currently Encephalopathy Preserved left ventricular ejection fraction COPD Acute kidney injury Blood pressure remains labile, on IV sedatives is likely contributing factor. Holding parameters on antihypertensives, PRN antihypertensives in the interim Antibiotics as per primary team Vent management as per pulmonary Consultation Date/Type/Reason Admit Date/Time May 18, 2019 at 00:50 Initial Consult Date 05/18/19 Type of Consult Cardiology Requesting Provider: VIRGEN MCQUEEN Date/Time of Note DATE: 05/31/19 TIME: 21:29 24 HR Interval Summary Free Text/Dictation sedated and intubated Exam/Review of Systems Vital Signs Vitals Vital Signs Date Temp Pulse Resp B/P (MAP) Pulse Ox O2 O2 Flow FiO2 Time Delivery Rate 05/31/19 61 20 102/44 100 Mechanical 19:00 (63) Ventilator 05/31/19 50 17:10 05/31/19 97.9 16:00 Intake and Output 05/30/19 05/30/19 05/31/19 1515:00 23:00 07:00 IntakeIntake Total 641.925 ml 532.200 ml 523.980 ml OutputOutput Total 650 ml 315 ml 210 ml BalanceBalance -8.075 ml 217.200 ml 313.980 ml Exam Exam sedated and intubated Head: normocephalic ENMT: intubated Respiratory: other (course bs, no wheeze) Cardiovascular: regular rate and rhythm (s1s2) Gastrointestinal: soft, non-tender, bowel sounds Extremities: edema Labs Result Diagram: 05/31/19 0405 05/31/19 0405 Results 24hrs Laboratory Tests Test 05/31/19 00:24 05/31/19 04:05 05/31/19 05:34 05/31/19 08:03 Bedside Glucose 154 192 White Blood Count 10.8 Red Blood Count 3.59 L Hemoglobin 11.0 L Hematocrit 34.9 L Mean Corpuscular 97.2 Volume Mean Corpuscular 30.6 Hemoglobin Mean Corpuscular 31.5 L Hemoglobin Concen t Red Cell 14.5 Distribution Width Platelet Count 297 Mean Platelet 10.5 H Volume Immature 0.500 H Granulocytes % Neutrophils % 92.0 H Lymphocytes % 1.4 L Monocytes % 6.0 Eosinophils % 0.0 Basophils % 0.1 Nucleated Red 0.0 Blood Cells % Immature 0.050 H Granulocytes # Neutrophils # 9.9 H Lymphocytes # 0.2 L Monocytes # 0.7 Eosinophils # 0.0 Basophils # 0.0 Nucleated Red 0.0 Blood Cells # Sodium Level 139 Potassium Level 4.7 Chloride Level 103 Carbon Dioxide 35 H Level Anion Gap 1 L Blood Urea 32 H Nitrogen Creatinine 0.51 L Est Glomerular Filtrat Rate mL/min Glucose Level 174 Calcium Level 8.4 Phosphorus Level 3.3 Magnesium Level 2.6 H Blood Gas Blood arterial Specimen Source Arterial Blood 05/31/2019 8:39:0 Date Drawn 9 AM Arterial Blood pH 7.445 (Temp corrected) Arterial Blood 50.0 H pCO2 (Temp correct) Arterial Blood 187.3 H pO2 (Temp corrected) Arterial Blood 33.6 H HCO3 Arterial Blood 8.2 H Base Excess Arterial Blood 98.9 Oxygen Saturation Joe Test ACCEPTAB Arterial Blood Right Radial Gas Puncture Site Arterial 0.3 Blood Carboxyhemo globin Arterial Blood 0.4 Methemoglobin Blood Gas A-a O2 185.5 H Differential Oxyhemoglobin 98.2 Percent Blood Gas 37.0 Temperature Blood Gas 12.0 Respiration Rate Blood Gas Actual 13 Respiration Rate Blood Gas VENT - AC Modality FiO2 60.0 Blood Gas Tidal 500.0 Volume Blood Gas Low 5.0 PEEP Setting Blood Gas TM Notified Whom Blood Gas 05/31/2019 8:59:5 Notified Time 0 AM Test 05/31/19 08:37 05/31/19 12:26 05/31/19 16:36 05/31/19 20:24 Bedside Glucose 163 168 182 201 Medications Medications Current Medications IV Flush (NS 3 ml) 3 ml PER PROTOCOL IV ; Start 05/18/19 at 02:00 Ondansetron HCl (Zofran Inj) 4 mg Q6H PRN IV NAUSEA/VOMITING; Start 05/18/19 at 02:00 Acetaminophen (Tylenol Tab) 650 mg Q6H PRN PO .PAIN 1-3 OR TEMP; Start 05/18/19 at 02:00 Albuterol/ Ipratropium (Duoneb) 3 ml Q2H RESP THERAPY PRN HHN wheezing; Start 05/18/19 at 09:30 Hydralazine HCl (Apresoline) 10 mg Q4H PRN IV sbp >160 Last administered on 7/29/19at 13:43; Admin Dose 10 MG; Start 05/18/19 at 11:00 Clopidogrel Bisulfate (plaVIX) 75 mg DAILY GTB Last administered on 05/31/19 08:39; Admin Dose 75 MG; Start 05/18/19 at 11:00 IV Flush (NS 10 ml) 10 ml PRN PRN IV FLUSH LINE; Start 05/18/19 at 17:30 Lansoprazole (Prevacid) 30 mg DAILY@06 GTB Last administered on 05/31/19at 05:51; Admin Dose 30 MG; Start 05/21/19 at 06:00 Albuterol (Ventolin Hfa) 4 puff Q6H RESP THERAPY INH Last administered on 05/31/19 20:02; Admin Dose 4 PUFF; Start 05/21/19 at 20:00 Ipratropium [place] (Atrovent Hfa) 4 puff Q6H RESP THERAPY INH Last administered on 05/31/19 20:02; Admin Dose 4 PUFF; Start 05/21/19 at 20:00 Metoprolol Tartrate (Lopressor) 5 mg Q4 PRN IV SBP > 160 Last administered on 05/22/19at 01:59; Admin Dose 5 MG; Start 05/22/19 at 02:00 Morphine Sulfate (morphine) 3 mg Q4H PRN IV SEVERE PAIN LEVEL 7-10 Last administered on 05/29/19 15:21; Admin Dose 3 MG; Start 05/22/19 at 02:00 Insulin Aspart (Novolog Insulin Pen) NOVOLOG *MILD* ALGORI... Q4 SC Last administered on 05/31/19 20:31; Admin Dose 2 UNIT; Start 05/23/19 at 17:00 Miscellaneous Information 1 ea NOTE XX ; Start 05/23/19 at 16:00 Glucose (Glutose) 15 gm Q15M PRN PO DECREASED GLUCOSE; Start 05/23/19 at 16:00 Glucose (Glutose) 22.5 gm Q15M PRN PO DECREASED GLUCOSE; Start 05/23/19 at 16:00 Dextrose (D50w Syringe) 25 ml Q15M PRN IV DECREASED GLUCOSE; Start 05/23/19 at 16:00 Dextrose (D50w Syringe) 50 ml Q15M PRN IV DECREASED GLUCOSE; Start 05/23/19 at 16:00 Glucagon (Glucagen) 1 mg Q15M PRN IM DECREASED GLUCOSE; Start 05/23/19 at 16:00 Glucose (Glutose) 15 gm Q15M PRN BUCCAL DECREASED GLUCOSE; Start 05/23/19 at 16:00 Atorvastatin Calcium (Lipitor) 20 mg HS GTB Last administered on 05/31/19 20:26; Admin Dose 20 MG; Start 05/26/19 at 21:00 Losartan Potassium (Cozaar) 25 mg BID GTB Last administered on 05/31/19 08:39; Admin Dose 25 MG; Start 05/26/19 at 09:00 Fluconazole (Diflucan) 100 mg DAILY GTB Last administered on 05/31/19 08:39; Admin Dose 100 MG; Start 05/26/19 at 13:30 Amlodipine Besylate (Norvasc) 5 mg DAILY GTB Last administered on 05/31/19 08:39; Admin Dose 5 MG; Start 05/27/19 at 09:00 Lactobacillus Acidophilus/ Rhamnosus (Culturelle) 1 cap TID GTB Last administered on 05/31/19 20:26; Admin Dose 1 CAP; Start 05/27/19 at 21:00 Propofol 100 ml @ 2.055 mls/ hr Q12H IV Last administered on 05/31/19 19:36; Admin Dose 10.275 MLS/HR; Start 05/29/19 at 16:30 Methylprednisolone Sodium Succinate (Solu-Medrol) 30 mg BID IV Last administered on 05/31/19 20:27; Admin Dose 30 MG; Start 05/30/19 at 21:00 Insulin Human NPH (Humulin N) 12 unit BID SC Last administered on 05/31/19 20:30; Admin Dose 12 UNIT; Start 05/30/19 at 21:00 Vancomycin HCl (Vanco Iv Per Pharmacy) VANCOMYCIN PER PHARMACY PER PROTOCOL XX ; Start 05/31/19 at 09:30 Vancomycin HCl 250 ml @ 125 mls/hr Q24H IVPB ; Start 06/01/19 at 06:00 Bao Garza DO May 31, 2019 21:30
[2019-06-01] VITALS (43 sets, daily range): BP systolic 82–168; BP diastolic 38–106; PULSE 51–109; RESP 12–35
[2019-06-01] MEDS: INSULIN ASPART [NOVOLOG] 3 ML PEN SC SCH ×6 (00:07→20:41)
[2019-06-01] MEDS: IPRATROPIUM (HFA) 12.9 GM INHALER INH SCH ×4 (01:39→19:38)
[2019-06-01] MEDS: ALBUTEROL HFA 8 GM INHALER INH SCH ×4 (01:39→19:38)
[2019-06-01] MEDS: PROPOFOL 100 ML IV SCH ×4 (03:56→18:18)
[2019-06-01] MEDS: hydrALAzine 20 MG INJ IV PRN (05:02)
[2019-06-01] MEDS: LANSOPRAZOLE 30 MG CAP GTB SCH (05:02)
[2019-06-01] MEDS: VANCOMYCIN 1 GM 250 ML IVPB SCH (05:03)
[2019-06-01] MEDS: CLOPIDOGREL 75 MG TAB GTB SCH (08:19)
[2019-06-01] MEDS: FLUCONAZOLE 100 MG TAB GTB SCH (08:19)
[2019-06-01] MEDS: AMLODIPINE 5 MG TAB GTB SCH (08:19)
[2019-06-01] MEDS: METHYLPREDNISOLONE 40 MG INJ IV SCH ×2 (08:22→20:32)
[2019-06-01] MEDS: NPH, HUMAN INSULIN ISOPHANE 3ML VIAL SC SCH ×2 (08:24→20:41)
--- NOTE | 2019-06-01 08:40 | CONS ---
Assessment/Plan Assessment/Plan Assessment/Plan (Daily) Ventilator setting; assist control of 12, tidal volume 500, PEEP of 5, 50% FiO2. Patient is currently on propofol at 35 mics per kilogram per minute. Assessment and recommendations; 1. Patient admitted with respiratory failure due to underlying severe hypercapnic respiratory failure due to end-stage COPD. 2. Patient has failed multiple weaning trials from ventilator as well as one self extubation requiring immediate intubation. 3. History of diabetes and hypertension. 4. Bilateral lower lobe pneumonia. Continue current supportive care. Continue vancomycin and add Zosyn. Patient's needs to arrive in the next 5 days and will decide about further plan of care. Patient has expressed not to have a tracheostomy performed. Prognosis remains extremely poor. Consultation Date/Type/Reason Admit Date/Time May 18, 2019 at 00:50 Initial Consult Date 05/18/19 Type of Consult Pulmonary/critical care Patient is an 84-year-old gentleman who was sent over from [facility] with altered mental status and severe hypoxemia. Upon evaluation patient was found to be in severe hypercapnic respiratory failure with pneumonia. Patient was intubated. By the time I saw him in ER, patient is orally intubated and is currently under paralytic and sedative effect. Patient however did not appear to be in any distress. History has been obtained from medical records. Past medical history; 1. Apparently advanced COPD. 2. Dementia. But the patient according to medical records is ambulatory and is usually awake and alert. Medications; reviewed. Allergies; none. Family history; not available. Social history; patient does have history of heavy smoking. Occupational history; not available. Review of system; not able to be obtained. General exam; elderly male, orally intubated, currently sedated. No distress noted. Requesting Provider: VIRGEN MCQUEEN Date/Time of Note DATE: 06/01/19 TIME: 08:37 24 HR Interval Summary Free Text/Dictation Patient's condition is critical. Has failed multiple weaning trials from ventilator. Patient also has expressed desire not to have a tracheostomy performed. General exam; elderly male, orally intubated, sedated, currently in no distress. Exam/Review of Systems Exam Vitals Vital Signs Date Temp Pulse Resp B/P (MAP) Pulse Ox O2 O2 Flow FiO2 Time Delivery Rate 06/01/19 106 21 165/77 100 Mechanical 06:00 (106) Ventilator 06/01/19 50 05:40 06/01/19 98.7 04:00 Intake and Output 05/31/19 05/31/19 06/01/19 1515:00 23:00 07:00 IntakeIntake Total 732.199 ml 494.000 ml 787.4 ml OutputOutput Total 495 ml 75 ml 1125 ml BalanceBalance 237.199 ml 419.000 ml -337.6 ml Exam H ENT exam; supple neck, JVD difficult to see because of ross. Patient is edentulous. Orally intubated. No neck masses. Pupils are small bilaterally. No neck masses. Orogastric tube in place. Chest exam; diminished breath sounds bilaterally. S1-S2 audible, no murmurs. Regular rhythm. Abdomen exam; soft, no organomegaly. Nondistended. Bowel sounds are audible. Extremity exam; no peripheral edema clubbing. 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 Results Result Diagram: 06/01/19 0400 06/01/19 0400 Results 24hrs Laboratory Tests Test 05/31/19 12:26 05/31/19 16:36 05/31/19 20:24 06/01/19 00:01 Bedside Glucose 168 182 201 145 Test 06/01/19 04:00 06/01/19 04:51 06/01/19 08:21 White Blood Count 13.9 #H Red Blood Count 4.13 L Hemoglobin 12.5 L Hematocrit 40.0 L Mean Corpuscular 96.9 Volume Mean Corpuscular 30.3 Hemoglobin Mean Corpuscular 31.3 L Hemoglobin Concent Red Cell Distribution 14.7 H Width Platelet Count 333 Mean Platelet Volume 10.3 Immature Granulocytes 0.800 H % Neutrophils % 92.5 H Lymphocytes % 2.0 L Monocytes % 4.6 Eosinophils % 0.0 Basophils % 0.1 Nucleated Red Blood 0.0 Cells % Immature Granulocytes 0.110 H # Neutrophils # 12.9 H Lymphocytes # 0.3 L Monocytes # 0.6 Eosinophils # 0.0 Basophils # 0.0 Nucleated Red Blood 0.0 Cells # Sodium Level 138 Potassium Level 4.6 Chloride Level 101 Carbon Dioxide Level 35 H Anion Gap 2 L Blood Urea Nitrogen 32 H Creatinine 0.52 L Est Glomerular Filtrat Rate mL/min Glucose Level 140 Calcium Level 9.1 Phosphorus Level 3.3 Magnesium Level 2.7 H Bedside Glucose 139 160 Medications Medication Current Medications IV Flush (NS 3 ml) 3 ml PER PROTOCOL IV ; Start 05/18/19 at 02:00 Ondansetron HCl (Zofran Inj) 4 mg Q6H PRN IV NAUSEA/VOMITING; Start 05/18/19 at 02:00 Acetaminophen (Tylenol Tab) 650 mg Q6H PRN PO .PAIN 1-3 OR TEMP; Start 05/18/19 at 02:00 Albuterol/ Ipratropium (Duoneb) 3 ml Q2H RESP THERAPY PRN HHN wheezing; Start 05/18/19 at 09:30 Hydralazine HCl (Apresoline) 10 mg Q4H PRN IV sbp >160 Last administered on 06/01/19 05:02; Admin Dose 10 MG; Start 05/18/19 at 11:00 Clopidogrel Bisulfate (plaVIX) 75 mg DAILY GTB Last administered on 06/01/19 08:19; Admin Dose 75 MG; Start 05/18/19 at 11:00 IV Flush (NS 10 ml) 10 ml PRN PRN IV FLUSH LINE; Start 05/18/19 at 17:30 Lansoprazole (Prevacid) 30 mg DAILY@06 GTB Last administered on 06/01/19 05:02; Admin Dose 30 MG; Start 05/21/19 at 06:00 Albuterol (Ventolin Hfa) 4 puff Q6H RESP THERAPY INH Last administered on 06/01/19 01:39; Admin Dose 4 PUFF; Start 05/21/19 at 20:00 Ipratropium [place] (Atrovent Hfa) 4 puff Q6H RESP THERAPY INH Last administered on 06/01/19 01:39; Admin Dose 4 PUFF; Start 05/21/19 at 20:00 Metoprolol Tartrate (Lopressor) 5 mg Q4 PRN IV SBP > 160 Last administered on 05/22/19at 01:59; Admin Dose 5 MG; Start 05/22/19 at 02:00 Morphine Sulfate (morphine) 3 mg Q4H PRN IV SEVERE PAIN LEVEL 7-10 Last administered on 05/29/19at 15:21; Admin Dose 3 MG; Start 05/22/19 at 02:00 Insulin Aspart (Novolog Insulin Pen) NOVOLOG *MILD* ALGORI... Q4 SC Last administered on 06/01/19 08:25; Admin Dose 1 UNIT; Start 05/23/19 at 17:00 Miscellaneous Information 1 ea NOTE XX ; Start 05/23/19 at 16:00 Glucose (Glutose) 15 gm Q15M PRN PO DECREASED GLUCOSE; Start 05/23/19 at 16:00 Glucose (Glutose) 22.5 gm Q15M PRN PO DECREASED GLUCOSE; Start 05/23/19 at 16:00 Dextrose (D50w Syringe) 25 ml Q15M PRN IV DECREASED GLUCOSE; Start 05/23/19 at 16:00 Dextrose (D50w Syringe) 50 ml Q15M PRN IV DECREASED GLUCOSE; Start 05/23/19 at 16:00 Glucagon (Glucagen) 1 mg Q15M PRN IM DECREASED GLUCOSE; Start 05/23/19 at 16:00 Glucose (Glutose) 15 gm Q15M PRN BUCCAL DECREASED GLUCOSE; Start 05/23/19 at 16:00 Atorvastatin Calcium (Lipitor) 20 mg HS GTB Last administered on 05/31/19 20:26; Admin Dose 20 MG; Start 05/26/19 at 21:00 Losartan Potassium (Cozaar) 25 mg BID GTB Last administered on 05/31/19 08:39; Admin Dose 25 MG; Start 05/26/19 at 09:00 Fluconazole (Diflucan) 100 mg DAILY GTB Last administered on 06/01/19 08:19; Admin Dose 100 MG; Start 05/26/19 at 13:30 Amlodipine Besylate (Norvasc) 5 mg DAILY GTB Last administered on 06/01/19 08:19; Admin Dose 5 MG; Start 05/27/19 at 09:00 Lactobacillus Acidophilus/ Rhamnosus (Culturelle) 1 cap TID GTB Last administer ed on 05/31/19 20:26; Admin Dose 1 CAP; Start 05/27/19 at 21:00 Propofol 100 ml @ 2.055 mls/ hr Q12H IV Last administered on 06/01/19 07:43; Admin Dose 14.385 MLS/HR; Start 05/29/19 at 16:30 Methylprednisolone Sodium Succinate (Solu-Medrol) 30 mg BID IV Last administered on 06/01/19 08:22; Admin Dose 30 MG; Start 05/30/19 at 21:00 Insulin Human NPH (Humulin N) 12 unit BID SC Last administered on 06/01/19at 08:24; Admin Dose 12 UNIT; Start 05/30/19 at 21:00 Vancomycin HCl (Vanco Iv Per Pharmacy) VANCOMYCIN PER PHARMACY PER PROTOCOL XX ; Start 05/31/19 at 09:30 Vancomycin HCl 250 ml @ 125 mls/hr Q24H IVPB Last administered on 06/01/19at 05:03; Admin Dose 125 MLS/HR; Start 06/01/19 at 06:00 JUAN F MATA Jun 01, 2019 08:40
[2019-06-01] MEDS: LOSARTAN 25 MG TAB GTB SCH (09:00)
[2019-06-01] MEDS: LACTOBACILLUS RHAMNOSUS CAP GTB SCH ×3 (09:53→20:30)
[2019-06-01] MEDS: PIPER-TAZO 3.375 GM IV (PMX) 100 ML IVPB SCH ×3 (09:53→20:43)
--- NOTE | 2019-06-01 10:57 | CONS ---
Assessment/Plan Assessment/Plan Assessment/Plan (Recall) 84 M c/ HTN, and probable mild cognitive impairment...who presents for evaluation of ams. Noted to be severely hypercapnic...prompting intubation for mechanical ventilation.. The clinical picture is, thus, consistent w/ an acute toxic-metabolic encephalopathy.. A focal RETAIL SALES REPRESENTATIVE process is unlikely... Head CT is negative for acute intracranial pathology.. P: Continued medical management and supportive care per primary Wean sedation as able asa/lipitor daily is sufficient for secondary stroke prevention.. Will follow clinically Consultation Date/Type/Reason Admit Date/Time May 18, 2019 at 00:50 Type of Consult Neurology Reason for Consultation ams Requesting Provider: VIRGEN MCQUEEN Date/Time of Note DATE: 06/01/19 TIME: 10:57 24 HR Interval Summary Free Text/Dictation Continues icu care Exam/Review of Systems Exam Vitals Vital Signs Date Temp Pulse Resp B/P (MAP) Pulse Ox O2 O2 Flow FiO2 Time Delivery Rate 06/01/19 92 23 115/58 100 08:30 (77) 06/01/19 60 08:00 06/01/19 98.5 Mechanical 08:00 Ventilator Intake and Output 05/31/19 05/31/19 06/01/19 1515:00 23:00 07:00 IntakeIntake Total 732.199 ml 494.000 ml 787.4 ml OutputOutput Total 495 ml 75 ml 1125 ml BalanceBalance 237.199 ml 419.000 ml -337.6 ml Results Result Diagram: 06/01/19 0400 06/01/19 0400 Results 24hrs Laboratory Tests Test 05/31/19 12:26 05/31/19 16:36 05/31/19 20:24 06/01/19 00:01 Bedside Glucose 168 182 201 145 Test 06/01/19 04:00 06/01/19 04:51 06/01/19 08:21 06/01/19 08:47 White Blood Count 13.9 #H Red Blood Count 4.13 L Hemoglobin 12.5 L Hematocrit 40.0 L Mean Corpuscular 96.9 Volume Mean Corpuscular 30.3 Hemoglobin Mean Corpuscular 31.3 L Hemoglobin Concen t Red Cell 14.7 H Distribution Width Platelet Count 333 Mean Platelet 10.3 Volume Immature 0.800 H Granulocytes % Neutrophils % 92.5 H Lymphocytes % 2.0 L Monocytes % 4.6 Eosinophils % 0.0 Basophils % 0.1 Nucleated Red 0.0 Blood Cells % Immature 0.110 H Granulocytes # Neutrophils # 12.9 H Lymphocytes # 0.3 L Monocytes # 0.6 Eosinophils # 0.0 Basophils # 0.0 Nucleated Red 0.0 Blood Cells # Sodium Level 138 Potassium Level 4.6 Chloride Level 101 Carbon Dioxide 35 H Level Anion Gap 2 L Blood Urea 32 H Nitrogen Creatinine 0.52 L Est Glomerular Filtrat Rate mL/min Glucose Level 140 Calcium Level 9.1 Phosphorus Level 3.3 Magnesium Level 2.7 H Bedside Glucose 139 160 Blood Gas Blood arterial Specimen Source Arterial Blood 06/01/2019 9:15:46 Date Drawn AM Arterial Blood pH 7.441 (Temp corrected) Arterial Blood 49.2 H pCO2 (Temp correct) Arterial Blood 108.3 H pO2 (Temp corrected) Arterial Blood 32.7 H HCO3 Arterial Blood 7.4 H Base Excess Arterial Blood 98.1 Oxygen Saturation Joe Test ACCEPTAB Arterial Blood UVL Gas Puncture Site Arterial 0.3 Blood Carboxyhemo globin Arterial Blood 0.4 Methemoglobin Blood Gas A-a O2 192.9 H Differential Oxyhemoglobin 97.4 Percent Blood Gas 37.0 Temperature Blood Gas 12.0 Respiration Rate Blood Gas Actual 13 Respiration Rate Blood Gas VENT - AC Modality FiO2 50.0 Blood Gas Tidal 500.0 Volume Blood Gas Low 5.0 PEEP Setting Blood Gas TM Notified Whom Blood Gas 06/01/2019 9:24:32 Notified Time AM Medications Medication Current Medications IV Flush (NS 3 ml) 3 ml PER PROTOCOL IV ; Start 05/18/19 at 02:00 Ondansetron HCl (Zofran Inj) 4 mg Q6H PRN IV NAUSEA/VOMITING; Start 05/18/19 at 02:00 Acetaminophen (Tylenol Tab) 650 mg Q6H PRN PO .PAIN 1-3 OR TEMP; Start 05/18/19 at 02:00 Albuterol/ Ipratropium (Duoneb) 3 ml Q2H RESP THERAPY PRN HHN wheezing; Start 05/18/19 at 09:30 Hydralazine HCl (Apresoline) 10 mg Q4H PRN IV sbp >160 Last administered on 06/01/19at 05:02; Admin Dose 10 MG; Start 05/18/19 at 11:00 Clopidogrel Bisulfate (plaVIX) 75 mg DAILY GTB Last administered on 06/01/19 08:19; Admin Dose 75 MG; Start 05/18/19 at 11:00 IV Flush (NS 10 ml) 10 ml PRN PRN IV FLUSH LINE; Start 05/18/19 at 17:30 Lansoprazole (Prevacid) 30 mg DAILY@06 GTB Last administered on 06/01/19 05:02; Admin Dose 30 MG; Start 05/21/19 at 06:00 Albuterol (Ventolin Hfa) 4 puff Q6H RESP THERAPY INH Last administered on 06/01/19 08:38; Admin Dose 4 PUFF; Start 05/21/19 at 20:00 Ipratropium [place] (Atrovent Hfa) 4 puff Q6H RESP THERAPY INH Last administered on 06/01/19 08:37; Admin Dose 4 PUFF; Start 05/21/19 at 20:00 Metoprolol Tartrate (Lopressor) 5 mg Q4 PRN IV SBP > 160 Last administered on 05/22/19at 01:59; Admin Dose 5 MG; Start 05/22/19 at 02:00 Morphine Sulfate (morphine) 3 mg Q4H PRN IV SEVERE PAIN LEVEL 7-10 Last administered on 05/29/19at 15:21; Admin Dose 3 MG; Start 05/22/19 at 02:00 Insulin Aspart (Novolog Insulin Pen) NOVOLOG *MILD* ALGORI... Q4 SC Last administered on 06/01/19at 08:25; Admin Dose 1 UNIT; Start 05/23/19 at 17:00 Miscellaneous Information 1 ea NOTE XX ; Start 05/23/19 at 16:00 Glucose (Glutose) 15 gm Q15M PRN PO DECREASED GLUCOSE; Start 05/23/19 at 16:00 Glucose (Glutose) 22.5 gm Q15M PRN PO DECREASED GLUCOSE; Start 05/23/19 at 16:00 Dextrose (D50w Syringe) 25 ml Q15M PRN IV DECREASED GLUCOSE; Start 05/23/19 at 16:00 Dextrose (D50w Syringe) 50 ml Q15M PRN IV DECREASED GLUCOSE; Start 05/23/19 at 16:00 Glucagon (Glucagen) 1 mg Q15M PRN IM DECREASED GLUCOSE; Start 05/23/19 at 16:00 Glucose (Glutose) 15 gm Q15M PRN BUCCAL DECREASED GLUCOSE; Start 05/23/19 at 16:00 Atorvastatin Calcium (Lipitor) 20 mg HS GTB Last administered on 05/31/19 20:26; Admin Dose 20 MG; Start 05/26/19 at 21:00 Losartan Potassium (Cozaar) 25 mg BID GTB Last administered on 05/31/19 08:39; Admin Dose 25 MG; Start 05/26/19 at 09:00 Fluconazole (Diflucan) 100 mg DAILY GTB Last administered on 06/01/19 08:19; Admin Dose 100 MG; Start 05/26/19 at 13:30 Amlodipine Besylate (Norvasc) 5 mg DAILY GTB Last administered on 06/01/19 08:19; Admin Dose 5 MG; Start 05/27/19 at 09:00 Lactobacillus Acidophilus/ Rhamnosus (Culturelle) 1 cap TID GTB Last admini stered on 06/01/19 09:53; Admin Dose 1 CAP; Start 05/27/19 at 21:00 Propofol 100 ml @ 2.055 mls/ hr Q12H IV Last administered on 06/01/19 07:43; Admin Dose 14.385 MLS/HR; Start 05/29/19 at 16:30 Methylprednisolone Sodium Succinate (Solu-Medrol) 30 mg BID IV Last administered on 06/01/19 08:22; Admin Dose 30 MG; Start 05/30/19 at 21:00 Insulin Human NPH (Humulin N) 12 unit BID SC Last administered on 06/01/19 08:24; Admin Dose 12 UNIT; Start 05/30/19 at 21:00 Vancomycin HCl (Vanco Iv Per Pharmacy) VANCOMYCIN PER PHARMACY PER PROTOCOL XX ; Start 05/31/19 at 09:30 Vancomycin HCl 250 ml @ 125 mls/hr Q24H IVPB Last administered on 06/01/19at 05:03; Admin Dose 125 MLS/HR; Start 06/01/19 at 06:00 Piperacillin Sod/ Tazobactam Sod 100 ml @ 200 mls/hr Q8 IVPB Last administered on 06/01/19 09:53; Admin Dose 200 MLS/HR; Start 06/01/19 at 09:00 LUKAS SIMS Jun 01, 2019 10:57
--- NOTE | 2019-06-01 12:53 | CONS ---
Assessment/Plan Assessment/Plan Assessment/Plan (Daily) 1. acute hyperrkalemia - resolved 2. Acute kidney injury due to ATN from septic shock + prerenal azotemia - improved 3. acute hypercapnic respiratory failure 2/2 Septic shock and PNA,, intubated on ventilator 4. H/o HTN 5. h/o HL 6. Septic shock due to bilateral PNA 7. Hypotension and Bradycardia - now stable 8. Anemia- Hgb 11.7- stable Plan: BUN/Cr improved to 32/0.51 other electrolytes stable , -IV solu-medrol 30mg IV BID Amlodipine 5 mg PO daily Cozaar 25 mg pO BID , IV hydralazine prn IV abx vancomycin, PO fluconazole , Renally dose all abx and monitor jennifer ctorlytes, ID following Failed CPAP trial today, pulmonary has been following - palliative care has been consulted on the case, Niece coming from out of state to help decide in decision making will follow up Consultation Date/Type/Reason Admit Date/Time May 18, 2019 at 00:50 Initial Consult Date 05/18/19 Type of Consult NEPHROLOGY Requesting Provider: VIRGEN MCQUEEN Date/Time of Note DATE: 06/01/19 TIME: 12:52 Exam/Review of Systems Exam Vitals Vital Signs Date Temp Pulse Resp B/P (MAP) Pulse Ox O2 O2 Flow FiO2 Time Delivery Rate 06/01/19 60 12:00 06/01/19 13 64 50 11:40 06/01/19 115/58 08:30 (77) 06/01/19 98.5 Mechanical 08:00 Ventilator Intake and Output 05/31/19 05/31/19 06/01/19 1515:00 23:00 07:00 IntakeIntake Total 732.199 ml 494.000 ml 787.4 ml OutputOutput Total 495 ml 75 ml 1125 ml BalanceBalance 237.199 ml 419.000 ml -337.6 ml Results Result Diagram: 06/01/19 0400 06/01/19 0400 Results 24hrs Laboratory Tests Test 05/31/19 16:36 05/31/19 20:24 06/01/19 00:01 06/01/19 04:00 Bedside Glucose 182 201 145 White Blood Count 13.9 #H Red Blood Count 4.13 L Hemoglobin 12.5 L Hematocrit 40.0 L Mean Corpuscular 96.9 Volume Mean Corpuscular 30.3 Hemoglobin Mean Corpuscular 31.3 L Hemoglobin Concen t Red Cell 14.7 H Distribution Width Platelet Count 333 Mean Platelet 10.3 Volume Immature 0.800 H Granulocytes % Neutrophils % 92.5 H Lymphocytes % 2.0 L Monocytes % 4.6 Eosinophils % 0.0 Basophils % 0.1 Nucleated Red 0.0 Blood Cells % Immature 0.110 H Granulocytes # Neutrophils # 12.9 H Lymphocytes # 0.3 L Monocytes # 0.6 Eosinophils # 0.0 Basophils # 0.0 Nucleated Red 0.0 Blood Cells # Sodium Level 138 Potassium Level 4.6 Chloride Level 101 Carbon Dioxide 35 H Level Anion Gap 2 L Blood Urea 32 H Nitrogen Creatinine 0.52 L Est Glomerular Filtrat Rate mL/min Glucose Level 140 Calcium Level 9.1 Phosphorus Level 3.3 Magnesium Level 2.7 H Test 06/01/19 04:51 06/01/19 08:21 06/01/19 08:47 06/01/19 12:43 Bedside Glucose 139 160 150 Blood Gas Blood arterial Specimen Source Arterial Blood 06/01/2019 9:15:46 Date Drawn AM Arterial Blood pH 7.441 (Temp corrected) Arterial Blood 49.2 H pCO2 (Temp correct) Arterial Blood 108.3 H pO2 (Temp corrected) Arterial Blood 32.7 H HCO3 Arterial Blood 7.4 H Base Excess Arterial Blood 98.1 Oxygen Saturation Joe Test ACCEPTAB Arterial Blood UVL Gas Puncture Site Arterial 0.3 Blood Carboxyhemo globin Arterial Blood 0.4 Methemoglobin Blood Gas A-a O2 192.9 H Differential Oxyhemoglobin 97.4 Percent Blood Gas 37.0 Temperature Blood Gas 12.0 Respiration Rate Blood Gas Actual 13 Respiration Rate Blood Gas VENT - AC Modality FiO2 50.0 Blood Gas Tidal 500.0 Volume Blood Gas Low 5.0 PEEP Setting Blood Gas TM Notified Whom Blood Gas 06/01/2019 9:24:32 Notified Time AM Medications Medication Current Medications IV Flush (NS 3 ml) 3 ml PER PROTOCOL IV ; Start 05/18/19 at 02:00 Ondansetron HCl (Zofran Inj) 4 mg Q6H PRN IV NAUSEA/VOMITING; Start 05/18/19 at 02:00 Acetaminophen (Tylenol Tab) 650 mg Q6H PRN PO .PAIN 1-3 OR TEMP; Start 05/18/19 at 02:00 Albuterol/ Ipratropium (Duoneb) 3 ml Q2H RESP THERAPY PRN HHN wheezing; Start 05/18/19 at 09:30 Hydralazine HCl (Apresoline) 10 mg Q4H PRN IV sbp >160 Last administered on 06/01/19 05:02; Admin Dose 10 MG; Start 05/18/19 at 11:00 Clopidogrel Bisulfate (plaVIX) 75 mg DAILY GTB Last administered on 06/01/19 08:19; Admin Dose 75 MG; Start 05/18/19 at 11:00 IV Flush (NS 10 ml) 10 ml PRN PRN IV FLUSH LINE; Start 05/18/19 at 17:30 Lansoprazole (Prevacid) 30 mg DAILY@06 GTB Last administered on 06/01/19 05:02; Admin Dose 30 MG; Start 05/21/19 at 06:00 Albuterol (Ventolin Hfa) 4 puff Q6H RESP THERAPY INH Last administered on 06/01/19 08:38; Admin Dose 4 PUFF; Start 05/21/19 at 20:00 Ipratropium [place] (Atrovent Hfa) 4 puff Q6H RESP THERAPY INH Last administered on 06/01/19 08:37; Admin Dose 4 PUFF; Start 05/21/19 at 20:00 Metoprolol Tartrate (Lopressor) 5 mg Q4 PRN IV SBP > 160 Last administered on 05/22/19at 01:59; Admin Dose 5 MG; Start 05/22/19 at 02:00 Morphine Sulfate (morphine) 3 mg Q4H PRN IV SEVERE PAIN LEVEL 7-10 Last administered on 05/29/19at 15:21; Admin Dose 3 MG; Start 05/22/19 at 02:00 Insulin Aspart (Novolog Insulin Pen) NOVOLOG *MILD* ALGORI... Q4 SC Last admi nistered on 06/01/19 12:46; Admin Dose 1 UNIT; Start 05/23/19 at 17:00 Miscellaneous Information 1 ea NOTE XX ; Start 05/23/19 at 16:00 Glucose (Glutose) 15 gm Q15M PRN PO DECREASED GLUCOSE; Start 05/23/19 at 16:00 Glucose (Glutose) 22.5 gm Q15M PRN PO DECREASED GLUCOSE; Start 05/23/19 at 16:00 Dextrose (D50w Syringe) 25 ml Q15M PRN IV DECREASED GLUCOSE; Start 05/23/19 at 16:00 Dextrose (D50w Syringe) 50 ml Q15M PRN IV DECREASED GLUCOSE; Start 05/23/19 at 16:00 Glucagon (Glucagen) 1 mg Q15M PRN IM DECREASED GLUCOSE; Start 05/23/19 at 16:00 Glucose (Glutose) 15 gm Q15M PRN BUCCAL DECREASED GLUCOSE; Start 05/23/19 at 16:00 Atorvastatin Calcium (Lipitor) 20 mg HS GTB Last administered on 05/31/19at 20:26; Admin Dose 20 MG; Start 05/26/19 at 21:00 Losartan Potassium (Cozaar) 25 mg BID GTB Last administered on 05/31/19at 08:39; Admin Dose 25 MG; Start 05/26/19 at 09:00 Fluconazole (Diflucan) 100 mg DAILY GTB Last administered on 06/01/19 08:19; Admin Dose 100 MG; Start 05/26/19 at 13:30 Amlodipine Besylate (Norvasc) 5 mg DAILY GTB Last administered on 06/01/19 08:19; Admin Dose 5 MG; Start 05/27/19 at 09:00 Lactobacillus Acidophilus/ Rhamnosus (Culturelle) 1 cap TID GTB Last ad ministered on 06/01/19at 12:43; Admin Dose 1 CAP; Start 05/27/19 at 21:00 Propofol 100 ml @ 2.055 mls/ hr Q12H IV Last administered on 06/01/19at 07:43; Admin Dose 14.385 MLS/HR; Start 05/29/19 at 16:30 Methylprednisolone Sodium Succinate (Solu-Medrol) 30 mg BID IV Last administered on 06/01/19 08:22; Admin Dose 30 MG; Start 05/30/19 at 21:00 Insulin Human NPH (Humulin N) 12 unit BID SC Last administered on 06/01/19 08:24; Admin Dose 12 UNIT; Start 05/30/19 at 21:00 Vancomycin HCl (Vanco Iv Per Pharmacy) VANCOMYCIN PER PHARMACY PER PROTOCOL XX ; Start 05/31/19 at 09:30 Vancomycin HCl 250 ml @ 125 mls/hr Q24H IVPB Last administered on 06/01/19at 05:03; Admin Dose 125 MLS/HR; Start 06/01/19 at 06:00 Piperacillin Sod/ Tazobactam Sod 100 ml @ 200 mls/hr Q8 IVPB Last administered on 06/01/19at 09:53; Admin Dose 200 MLS/HR; Start 06/01/19 at 09:00 EDGARD CLARKE MD Jun 01, 2019 12:52
--- NOTE | 2019-06-01 13:47 | PN ---
Date/Time of Note Date/Time of Note DATE: 06/01/19 TIME: 13:40 Objective Vitals Vital Signs Date Temp Pulse Resp B/P (MAP) Pulse Ox O2 O2 Flow FiO2 Time Delivery Rate 06/01/19 60 12:00 06/01/19 13 64 50 11:40 06/01/19 115/58 08:30 (77) 06/01/19 98.5 Mechanical 08:00 Ventilator Intake and Output 05/31/19 05/31/19 06/01/19 1515:00 23:00 07:00 IntakeIntake Total 732.199 ml 494.000 ml 787.4 ml OutputOutput Total 495 ml 75 ml 1125 ml BalanceBalance 237.199 ml 419.000 ml -337.6 ml Results Result Diagram: 06/01/19 0400 06/01/19 0400 Medications Medications Current Medications IV Flush (NS 3 ml) 3 ml PER PROTOCOL IV ; Start 05/18/19 at 02:00 Ondansetron HCl (Zofran Inj) 4 mg Q6H PRN IV NAUSEA/VOMITING; Start 05/18/19 at 02:00 Acetaminophen (Tylenol Tab) 650 mg Q6H PRN PO .PAIN 1-3 OR TEMP; Start 05/18/19 at 02:00 Albuterol/ Ipratropium (Duoneb) 3 ml Q2H RESP THERAPY PRN HHN wheezing; Start 05/18/19 at 09:30 Hydralazine HCl (Apresoline) 10 mg Q4H PRN IV sbp >160 Last administered on 06/01/19at 05:02; Admin Dose 10 MG; Start 05/18/19 at 11:00 Clopidogrel Bisulfate (plaVIX) 75 mg DAILY GTB Last administered on 06/01/19at 08:19; Admin Dose 75 MG; Start 05/18/19 at 11:00 IV Flush (NS 10 ml) 10 ml PRN PRN IV FLUSH LINE; Start 05/18/19 at 17:30 Lansoprazole (Prevacid) 30 mg DAILY@06 GTB Last administered on 06/01/19at 05:02; Admin Dose 30 MG; Start 05/21/19 at 06:00 Albuterol (Ventolin Hfa) 4 puff Q6H RESP THERAPY INH Last administered on 06/01/19at 08:38; Admin Dose 4 PUFF; Start 05/21/19 at 20:00 Ipratropium [place] (Atrovent Hfa) 4 puff Q6H RESP THERAPY INH Last administered on 06/01/19at 08:37; Admin Dose 4 PUFF; Start 05/21/19 at 20:00 Metoprolol Tartrate (Lopressor) 5 mg Q4 PRN IV SBP > 160 Last administered on 05/22/19at 01:59; Admin Dose 5 MG; Start 05/22/19 at 02:00 Morphine Sulfate (morphine) 3 mg Q4H PRN IV SEVERE PAIN LEVEL 7-10 Last administered on 05/29/19at 15:21; Admin Dose 3 MG; Start 05/22/19 at 02:00 Insulin Aspart (Novolog Insulin Pen) NOVOLOG *MILD* ALGORI... Q4 SC Last administered on 06/01/19at 12:46; Admin Dose 1 UNIT; Start 05/23/19 at 17:00 Miscellaneous Information 1 ea NOTE XX ; Start 05/23/19 at 16:00 Glucose (Glutose) 15 gm Q15M PRN PO DECREASED GLUCOSE; Start 05/23/19 at 16:00 Glucose (Glutose) 22.5 gm Q15M PRN PO DECREASED GLUCOSE; Start 05/23/19 at 16:00 Dextrose (D50w Syringe) 25 ml Q15M PRN IV DECREASED GLUCOSE; Start 05/23/19 at 16:00 Dextrose (D50w Syringe) 50 ml Q15M PRN IV DECREASED GLUCOSE; Start 05/23/19 at 16:00 Glucagon (Glucagen) 1 mg Q15M PRN IM DECREASED GLUCOSE; Start 05/23/19 at 16:00 Glucose (Glutose) 15 gm Q15M PRN BUCCAL DECREASED GLUCOSE; Start 05/23/19 at 16:00 Atorvastatin Calcium (Lipitor) 20 mg HS GTB Last administered on 05/31/19at 20:26; Admin Dose 20 MG; Start 05/26/19 at 21:00 Losartan Potassium (Cozaar) 25 mg BID GTB Last administered on 05/31/19at 08:39; Admin Dose 25 MG; Start 05/26/19 at 09:00 Fluconazole (Diflucan) 100 mg DAILY GTB Last administered on 06/01/19at 08:19; Admin Dose 100 MG; Start 05/26/19 at 13:30 Amlodipine Besylate (Norvasc) 5 mg DAILY GTB Last administered on 06/01/19 08:19; Admin Dose 5 MG; Start 05/27/19 at 09:00 Lactobacillus Acidophilus/ Rhamnosus (Culturelle) 1 cap TID GTB Last administered on 06/01/19 12:43; Admin Dose 1 CAP; Start 05/27/19 at 21:00 Propofol 100 ml @ 2.055 mls/ hr Q12H IV Last administered on 06/01/19 07:43; Admin Dose 14.385 MLS/HR; Start 05/29/19 at 16:30 Methylprednisolone Sodium Succinate (Solu-Medrol) 30 mg BID IV Last admi nistered on 06/01/19 08:22; Admin Dose 30 MG; Start 05/30/19 at 21:00 Insulin Human NPH (Humulin N) 12 unit BID SC Last administered on 06/01/19 08:24; Admin Dose 12 UNIT; Start 05/30/19 at 21:00 Vancomycin HCl (Vanco Iv Per Pharmacy) VANCOMYCIN PER PHARMACY PER PROTOCOL XX ; Start 05/31/19 at 09:30 Vancomycin HCl 250 ml @ 125 mls/hr Q24H IVPB Last administered on 06/01/19at 05:03; Admin Dose 125 MLS/HR; Start 06/01/19 at 06:00 Piperacillin Sod/ Tazobactam Sod 100 ml @ 200 mls/hr Q8 IVPB Last administered on 06/01/19at 09:53; Admin Dose 200 MLS/HR; Start 06/01/19 at 09:00 VTE Prophylaxis Risk score (from Nsg)>0 risk: 9 SCD applied (from Ns): Yes Lines/Catheters IV Catheter Type: Cabrales in Place: Yes Cont'd cabrales catheter reason: terminal illness/intractable pain Assessment/Plan Hospital Course Subjective Patient intubated and sedated Objective Physical exam General: Patient is laying in bed intubated mentation: Patient is sedated Head: Normocephalic atraumatic Eyes: EOMI, pupils reactive to light Neck: Supple, nontender, midline Respiratory: Coarse to auscultation bilaterally Cardiovascular: bradycardic rate, no obvious murmurs Gastrointestinal: non-tender to palpation, bowel sounds heard. Neurological: Unable to fully assess Skin: No new skin lesions Assessment/Plan 1. Acute hypoxic respiratory failure - Will plan for CPAP daily and hopefully will be able to extubated to BIPAP - remains intubated on vent support - Pulm on board and appreciate recommendations. - Initial CT chest results noted with emphysema and bilateral effusions with atelectasis vs infiltrate 2. COPD exacerbation - currently on steroid taper and neb treatments leukocytosis, fluctuating -Continue antifungal, abx -Repeat blood cultures pending, 1/2 positive, possible contaminant , UA noted bacteremia -Possible contaminant however will need to treat empirically for now -IV vancomycin ordered, infectious disease recognitions appreciated 3. Acute toxic encephalopathy- stable - patient nodding/shaking head appropriately to questions when off sedation - CT head noted, no acute issues - Neurology consultation appreciated 4. Acute kidney injury- resolved - Nephrology consultation appreciated 5. Hypertension - continue home medications. BP remains stable 6. Mild cognitive impairment - Neurology on board - Baseline is alert and oriented x3, with some memory loss 7. Mild carotid stenosis, right ICA - Continue on Plavix and statin 8. Hyperglycemia- improved - A1c noted - secondary to steroids 9. Arrhythmia - cardiology aware - continue monitoring - electrolytes within normal limits 10. Disposition -Patient remains difficult to extubate, pulmonary feels we may need to perform tracheostomy, -During sedation vacation, spoke with patient, patient relatively oriented and can nod yes and no for answers. I tried to explain to him if he wanted a tracheostomy done and if not, the consequences of extubation without tracheostomy, patient appeared to understand however when asked what he wanted us to do if he does poorly on BiPAP he expressed wishes to be put back on the current ventilator which tells me that the patient is not fully understanding the entire concept at this time, will need to speak with drug abuse social worker and possible bioethics consult after conversation with the niece. >40 minutes of critical care time spend with patient VIRGEN MCQUEEN Jun 01, 2019 13:47
--- NOTE | 2019-06-01 14:31 | PN ---
DATE: 06/01/2019 SUBJECTIVE: No acute changes. No fevers overnight. The patient is intubated and sedated, in no dis tress. MICROBIOLOGY: Blood cultures grew coag-negative staph species, one set. Repeat blood cultures negat maggi. VITAL SIGNS: WBC 13.9, neutrophils 92.5, BUN 32, creatinine 0.52. INDWELLINGS: Endotracheal tube, NG tube, Hernández, PICC line. ANTIMICROBIALS: The patient is on: 1. Vancomycin. 2. Zosyn. PHYSICAL EXAMINATION: GENERAL: This is a chronically ill elderly man who is in no distress. HEENT: Head atraumatic, normocephalic. Sclerae anicteric. Buccal mucosa dry. NECK: Supple. CHEST: Rise symmetrical. Breath sounds diminished to bases. HEART: S1, S2. ABDOMEN: Soft, bowel tones present. ASSESSMENT: 1. Acute hypoxemic respiratory failure. 2. Pneumonia. 3. Coagulase-negative Staphylococcus bacteremia, possibly contaminant. 4. Healthcare-associated pneumonia. 5. Diabetes. 6. Encephalopathy. PLAN: The patient is hemodynamically stable. Antibiotics were restarted for radiographic worsening. Continue present care. Management per primary team and consultants. Dictated By: KURT SO CHIEF ADMINISTRATIVE OFFICER for FROY HURT MD NI/NTS Conf#: [id number] DID#: [id number] CC: KRISTIN BASS MD;*EndCC*
--- NOTE | 2019-06-01 14:31 | CONS ---
Assessment/Plan Assessment/Plan Hospital Course (Demo Recall) Respiratory failure, status post intubation History of hypertension with labile blood pressure currently Encephalopathy Preserved left ventricular ejection fraction COPD Acute kidney injury Blood pressure remains labile, on IV sedatives is likely contributing factor. Holding parameters on antihypertensives, PRN antihypertensives in the interim Antibiotics as per primary team Vent management as per pulmonary Consultation Date/Type/Reason Admit Date/Time May 18, 2019 at 00:50 Initial Consult Date 05/18/19 Type of Consult Cardiology Requesting Provider: VIRGEN MCQUEEN Date/Time of Note DATE: 06/01/19 TIME: 14:29 24 HR Interval Summary Free Text/Dictation Remains intubated Exam/Review of Systems Vital Signs Vitals Vital Signs Date Temp Pulse Resp B/P (MAP) Pulse Ox O2 O2 Flow FiO2 Time Delivery Rate 06/01/19 71 33 121/48 99 13:30 (72) 06/01/19 Mechanical 13:00 Ventilator 06/01/19 97.6 12:00 06/01/19 50 11:40 Intake and Output 05/31/19 05/31/19 06/01/19 1515:00 23:00 07:00 IntakeIntake Total 732.199 ml 494.000 ml 787.4 ml OutputOutput Total 495 ml 75 ml 1125 ml BalanceBalance 237.199 ml 419.000 ml -337.6 ml Exam Exam Intubated, looks me when his name is called, no apparent distress Head: normocephalic ENMT: intubated Respiratory: other (Coarse breath sounds bilaterally, no wheezing) Cardiovascular: regular rate and rhythm (S1-S2 heard) Gastrointestinal: soft, non-tender, bowel sounds Extremities: edema Labs Result Diagram: 06/01/19 0400 06/01/19 0400 Results 24hrs Laboratory Tests Test 05/31/19 16:36 05/31/19 20:24 06/01/19 00:01 06/01/19 04:00 Bedside Glucose 182 201 145 White Blood Count 13.9 #H Red Blood Count 4.13 L Hemoglobin 12.5 L Hematocrit 40.0 L Mean Corpuscular 96.9 Volume Mean Corpuscular 30.3 Hemoglobin Mean Corpuscular 31.3 L Hemoglobin Concen t Red Cell 14.7 H Distribution Width Platelet Count 333 Mean Platelet 10.3 Volume Immature 0.800 H Granulocytes % Neutrophils % 92.5 H Lymphocytes % 2.0 L Monocytes % 4.6 Eosinophils % 0.0 Basophils % 0.1 Nucleated Red 0.0 Blood Cells % Immature 0.110 H Granulocytes # Neutrophils # 12.9 H Lymphocytes # 0.3 L Monocytes # 0.6 Eosinophils # 0.0 Basophils # 0.0 Nucleated Red 0.0 Blood Cells # Sodium Level 138 Potassium Level 4.6 Chloride Level 101 Carbon Dioxide 35 H Level Anion Gap 2 L Blood Urea 32 H Nitrogen Creatinine 0.52 L Est Glomerular Filtrat Rate mL/min Glucose Level 140 Calcium Level 9.1 Phosphorus Level 3.3 Magnesium Level 2.7 H Test 06/01/19 04:51 06/01/19 08:21 06/01/19 08:47 06/01/19 12:43 Bedside Glucose 139 160 150 Blood Gas Blood arterial Specimen Source Arterial Blood 06/01/2019 9:15:46 Date Drawn AM Arterial Blood pH 7.441 (Temp corrected) Arterial Blood 49.2 H pCO2 (Temp correct) Arterial Blood 108.3 H pO2 (Temp corrected) Arterial Blood 32.7 H HCO3 Arterial Blood 7.4 H Base Excess Arterial Blood 98.1 Oxygen Saturation Joe Test ACCEPTAB Arterial Blood UVL Gas Puncture Site Arterial 0.3 Blood Carboxyhemo globin Arterial Blood 0.4 Methemoglobin Blood Gas A-a O2 192.9 H Differential Oxyhemoglobin 97.4 Percent Blood Gas 37.0 Temperature Blood Gas 12.0 Respiration Rate Blood Gas Actual 13 Respiration Rate Blood Gas VENT - AC Modality FiO2 50.0 Blood Gas Tidal 500.0 Volume Blood Gas Low 5.0 PEEP Setting Blood Gas TM Notified Whom Blood Gas 06/01/2019 9:24:32 Notified Time AM Medications Medications Current Medications IV Flush (NS 3 ml) 3 ml PER PROTOCOL IV ; Start 05/18/19 at 02:00 Ondansetron HCl (Zofran Inj) 4 mg Q6H PRN IV NAUSEA/VOMITING; Start 05/18/19 at 02:00 Acetaminophen (Tylenol Tab) 650 mg Q6H PRN PO .PAIN 1-3 OR TEMP; Start 05/18/19 at 02:00 Albuterol/ Ipratropium (Duoneb) 3 ml Q2H RESP THERAPY PRN HHN wheezing; Start 05/18/19 at 09:30 Hydralazine HCl (Apresoline) 10 mg Q4H PRN IV sbp >160 Last administered on 06/01/19 05:02; Admin Dose 10 MG; Start 05/18/19 at 11:00 Clopidogrel Bisulfate (plaVIX) 75 mg DAILY GTB Last administered on 06/01/19at 08:19; Admin Dose 75 MG; Start 05/18/19 at 11:00 IV Flush (NS 10 ml) 10 ml PRN PRN IV FLUSH LINE; Start 05/18/19 at 17:30 Lansoprazole (Prevacid) 30 mg DAILY@06 GTB Last administered on 06/01/19at 05:02; Admin Dose 30 MG; Start 05/21/19 at 06:00 Albuterol (Ventolin Hfa) 4 puff Q6H RESP THERAPY INH Last administered on 06/01/19 08:38; Admin Dose 4 PUFF; Start 05/21/19 at 20:00 Ipratropium [place] (Atrovent Hfa) 4 puff Q6H RESP THERAPY INH Last administered on 06/01/19at 08:37; Admin Dose 4 PUFF; Start 05/21/19 at 20:00 Metoprolol Tartrate (Lopressor) 5 mg Q4 PRN IV SBP > 160 Last administered on 05/22/19at 01:59; Admin Dose 5 MG; Start 05/22/19 at 02:00 Morphine Sulfate (morphine) 3 mg Q4H PRN IV SEVERE PAIN LEVEL 7-10 Last administered on 05/29/19at 15:21; Admin Dose 3 MG; Start 05/22/19 at 02:00 Insulin Aspart (Novolog Insulin Pen) NOVOLOG *MILD* ALGORI... Q4 SC Last administered on 06/01/19at 12:46; Admin Dose 1 UNIT; Start 05/23/19 at 17:00 Miscellaneous Information 1 ea NOTE XX ; Start 05/23/19 at 16:00 Glucose (Glutose) 15 gm Q15M PRN PO DECREASED GLUCOSE; Start 05/23/19 at 16:00 Glucose (Glutose) 22.5 gm Q15M PRN PO DECREASED GLUCOSE; Start 05/23/19 at 16:00 Dextrose (D50w Syringe) 25 ml Q15M PRN IV DECREASED GLUCOSE; Start 05/23/19 at 16:00 Dextrose (D50w Syringe) 50 ml Q15M PRN IV DECREASED GLUCOSE; Start 05/23/19 at 16:00 Glucagon (Glucagen) 1 mg Q15M PRN IM DECREASED GLUCOSE; Start 05/23/19 at 16:00 Glucose (Glutose) 15 gm Q15M PRN BUCCAL DECREASED GLUCOSE; Start 05/23/19 at 16:00 Atorvastatin Calcium (Lipitor) 20 mg HS GTB Last administered on 05/31/19at 20:26; Admin Dose 20 MG; Start 05/26/19 at 21:00 Losartan Potassium (Cozaar) 25 mg BID GTB Last administered on 05/31/19at 08:39; Admin Dose 25 MG; Start 05/26/19 at 09:00 Fluconazole (Diflucan) 100 mg DAILY GTB Last administered on 06/01/19at 08:19; Admin Dose 100 MG; Start 05/26/19 at 13:30 Amlodipine Besylate (Norvasc) 5 mg DAILY GTB Last administered on 06/01/19at 08:19; Admin Dose 5 MG; Start 05/27/19 at 09:00 Lactobacillus Acidophilus/ Rhamnosus (Culturelle) 1 cap TID GTB Last administered on 06/01/19at 12:43; Admin Dose 1 CAP; Start 05/27/19 at 21:00 Propofol 100 ml @ 2.055 mls/ hr Q12H IV Last administered on 06/01/19at 14:01; Admin Dose 12.33 MLS/HR; Start 05/29/19 at 16:30 Methylprednisolone Sodium Succinate (Solu-Medrol) 30 mg BID IV Last administered on 06/01/19at 08:22; Admin Dose 30 MG; Start 05/30/19 at 21:00 Insulin Human NPH (Humulin N) 12 unit BID SC Last administered on 06/01/19at 08:24; Admin Dose 12 UNIT; Start 05/30/19 at 21:00 Vancomycin HCl (Vanco Iv Per Pharmacy) VANCOMYCIN PER PHARMACY PER PROTOCOL XX ; Start 05/31/19 at 09:30 Vancomycin HCl 250 ml @ 125 mls/hr Q24H IVPB Last administered on 06/01/19at 05:03; Admin Dose 125 MLS/HR; Start 06/01/19 at 06:00 Piperacillin Sod/ Tazobactam Sod 100 ml @ 200 mls/hr Q8 IVPB Last administered on 06/01/19at 14:01; Admin Dose 200 MLS/HR; Start 06/01/19 at 09:00 Bao Garza DO Jun 01, 2019 14:31
[2019-06-01] MEDS: ATORVASTATIN 20 MG TAB GTB SCH (20:30)
[2019-06-02] VITALS (38 sets, daily range): BP systolic 93–139; BP diastolic 46–67; PULSE 50–75; RESP 12–24
[2019-06-02] MEDS: LOSARTAN 25 MG TAB GTB SCH ×2 (00:44→08:44)
[2019-06-02] MEDS: INSULIN ASPART [NOVOLOG] 3 ML PEN SC SCH ×3 (00:48→08:46)
[2019-06-02] MEDS: ALBUTEROL HFA 8 GM INHALER INH SCH ×2 (01:27→07:39)
[2019-06-02] MEDS: IPRATROPIUM (HFA) 12.9 GM INHALER INH SCH ×4 (01:27→20:06)
[2019-06-02] MEDS: PIPER-TAZO 3.375 GM IV (PMX) 100 ML IVPB SCH (05:40)
[2019-06-02] MEDS: LANSOPRAZOLE 30 MG CAP GTB SCH (05:41)
[2019-06-02] MEDS: VANCOMYCIN 1 GM 250 ML IVPB SCH (05:41)
--- NOTE | 2019-06-02 07:19 | CONS ---
Assessment/Plan Assessment/Plan Assessment/Plan (Daily) PC preliminary note.. long discusssion with decision maker this morning... 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 She does not to see him suffer. After long discussion and discussing options she agrees to change code to comfort measures but do not extubate in the event they can arrive before he dies., and do not escalate care. They are ok with stopping everything ,labs and studies and using PRN meds for comfort BUT change to full comfort care if/when he deteriorates further before they arrive . This includes extubation. Consultation Date/Type/Reason Admit Date/Time May 18, 2019 at 00:50 Date/Time of Note DATE: 06/02/19 TIME: 07:19 Past Medical History Medical History: hypertension, other (Asthma, h/o CVA ) Home Meds Active Scripts Atorvastatin Calcium (Atorvastatin Calcium) 20 Mg Tablet, 20 MG PO HS for 30 Days, TAB Prov:VIRGEN MCQUEEN 05/16/19 Reported Medications Mineral Oil* (Fleet* Mineral Oil Enema) 133 Ml Oil, 133 ML [place] Q48H PRN for CONSTIPATION, ENEMA 05/18/19 Bisacodyl* (Dulcolax*) 5 Mg Tablet.dr, 10 MG PO DAILY PRN for CONSTIPATION, TAB 05/18/19 Magnesium Hydroxide* (Milk Of Magnesia*) 400 Mg/5 Ml Oral.susp, 30 ML PO QHS PRN for CONSTIPATION, ML 05/18/19 Docusate Sodium* (Colace*) 100 Mg Capsule, 200 MG PO QHS, #30 CAP 05/18/19 Acetaminophen* (Acetaminophen*) 500 MG Extra Strength Tablet, 1000 MG PO Q6H PRN for MILD PAIN(1-3)OR ELEVATED TEMP, TAB 05/18/19 Acetaminophen* (Tylenol*) 325 Mg Tablet, 650 MG PO Q4H PRN for MILD PAIN LEVEL 1-3, TAB MILD PAIN, LOJA SCALE 1/10 - 3/10, OR FEVER ABOVE 100,(MAX 3 GRAMS PER 24 HOURS) 05/18/19 Acetaminophen* (Tylophen*) 500 Mg Capsule, 1000 MG PO TID PRN for PAIN, TAB 05/18/19 Nitroglycerin* (Nitrostat*) 0.4 Mg Tab.subl, 0.4 MG SL Q5MIN PRN for CHEST PAIN, BOTTLE 05/18/19 Albuterol Sulfate* (Albuterol Sulfate* Neb) 0.083%-3 Ml Neb, 2.5 MG NEB Q4H PRN for SHORTNESS OF BREATH, #30 VIAL 05/18/19 Calcium Carbonate* (Calcium Carbonate*) 600 MG Ca Tab, 500 MG PO QID PRN for GASTROINTESTINAL UPSET, TAB 05/18/19 Ascorbic Acid* (Vitamin C*) 500 Mg Capsule.sa, 500 MG PO DAILY, CAP 05/18/19 Multivitamins* (Theragran*) 1 Tab Tab, 1 TAB PO DAILY, TAB 05/18/19 Cran/Vitc/Mannose/Inulin/Brom (Uti-Stat Liquid) 3,875 Mg/30 Ml Liquid, 3875 MG PO DAILY 05/18/19 Cranberry Extract (Cranberry) 425 Mg Capsule, 425 MG PO DAILY, CAP 05/18/19 Thiamine* (Vitamin B-1*) 100 Mg Tablet, 100 MG PO DAILY, TAB 05/18/19 Fluticasone/Vilanterol (Breo Ellipta 200-25 Mcg INH) 1 Each Blst.w.dev, 1 PUFF INHALATION DAILY, #1 INHALER 05/18/19 Losartan Potassium* (Cozaar*) 25 Mg Tablet, 25 MG PO BID, #60 TAB 05/18/19 Hydrochlorothiazide* (Microzide*) 12.5 Mg Capsule, 12.5 MG PO DAILY, #30 CAP 05/18/19 Amlodipine Besylate* (Norvasc*) 5 Mg Tablet, 5 MG PO DAILY, TAB 05/18/19 Folic Acid* (Folic Acid*) 1 Mg Tablet, 1 MG PO DAILY, TAB 05/18/19 Budesonide-Formoterol Fumarate* (Symbicort*) 160-4.5 Hfa.aer.ad, 1 PUFF INH DAILY 05/10/19 Metoprolol Tartrate* (Lopressor*) 25 Mg Tablet, 1 TAB ORAL BID 05/10/19 Montelukast Sodium* (Montelukast Sodium*) 10 Mg Tablet, 1 TAB ORAL DAILY 05/10/19 Tiotropium [place]* (Spiriva*) 18 Mcg Cap.w.dev, 1 CAP INH DAILY 05/10/19 Medications Current Medications IV Flush (NS 3 ml) 3 ml PER PROTOCOL IV ; Start 05/18/19 at 02:00 Ondansetron HCl (Zofran Inj) 4 mg Q6H PRN IV NAUSEA/VOMITING; Start 05/18/19 at 02:00 Acetaminophen (Tylenol Tab) 650 mg Q6H PRN PO .PAIN 1-3 OR TEMP; Start 05/18/19 at 02:00 Albuterol/ Ipratropium (Duoneb) 3 ml Q2H RESP THERAPY PRN HHN wheezing; Start 05/18/19 at 09:30 Hydralazine HCl (Apresoline) 10 mg Q4H PRN IV sbp >160 Last administered on 06/01/19 05:02; Admin Dose 10 MG; Start 05/18/19 at 11:00 Clopidogrel Bisulfate (plaVIX) 75 mg DAILY GTB Last administered on 06/01/19 08:19; Admin Dose 75 MG; Start 05/18/19 at 11:00 IV Flush (NS 10 ml) 10 ml PRN PRN IV FLUSH LINE; Start 05/18/19 at 17:30 Lansoprazole (Prevacid) 30 mg DAILY@06 GTB Last administered on 06/02/19 05:41; Admin Dose 30 MG; Start 05/21/19 at 06:00 Albuterol (Ventolin Hfa) 4 puff Q6H RESP THERAPY INH Last administered on 06/02/19 01:27; Admin Dose 4 PUFF; Start 05/21/19 at 20:00 Ipratropium [place] (Atrovent Hfa) 4 puff Q6H RESP THERAPY INH Last administered on 06/02/19 01:27; Admin Dose 4 PUFF; Start 05/21/19 at 20:00 Metoprolol Tartrate (Lopressor) 5 mg Q4 PRN IV SBP > 160 Last administered on 05/22/19 01:59; Admin Dose 5 MG; Start 05/22/19 at 02:00 Morphine Sulfate (morphine) 3 mg Q4H PRN IV SEVERE PAIN LEVEL 7-10 Last administered on 05/29/19 15:21; Admin Dose 3 MG; Start 05/22/19 at 02:00 Insulin Aspart (Novolog Insulin Pen) NOVOLOG *MILD* ALGORI... Q4 SC Last administered on 8/2/19at 05:42; Admin Dose 1 UNIT; Start 05/23/19 at 17:00 Miscellaneous Information 1 ea NOTE XX ; Start 05/23/19 at 16:00 Glucose (Glutose) 15 gm Q15M PRN PO DECREASED GLUCOSE; Start 05/23/19 at 16:00 Glucose (Glutose) 22.5 gm Q15M PRN PO DECREASED GLUCOSE; Start 05/23/19 at 16:00 Dextrose (D50w Syringe) 25 ml Q15M PRN IV DECREASED GLUCOSE; Start 05/23/19 at 16:00 Dextrose (D50w Syringe) 50 ml Q15M PRN IV DECREASED GLUCOSE; Start 05/23/19 at 16:00 Glucagon (Glucagen) 1 mg Q15M PRN IM DECREASED GLUCOSE; Start 05/23/19 at 16:00 Glucose (Glutose) 15 gm Q15M PRN BUCCAL DECREASED GLUCOSE; Start 05/23/19 at 16:00 Atorvastatin Calcium (Lipitor) 20 mg HS GTB Last administered on 06/01/19at 20:30; Admin Dose 20 MG; Start 05/26/19 at 21:00 Losartan Potassium (Cozaar) 25 mg BID GTB Last administered on 06/02/19at 00:44; Admin Dose 25 MG; Start 05/26/19 at 09:00 Fluconazole (Diflucan) 100 mg DAILY GTB Last administered on 06/01/19at 08:19; Admin Dose 100 MG; Start 05/26/19 at 13:30 Amlodipine Besylate (Norvasc) 5 mg DAILY GTB Last administered on 06/01/19 08:19; Admin Dose 5 MG; Start 05/27/19 at 09:00 Lactobacillus Acidophilus/ Rhamnosus (Culturelle) 1 cap TID GTB Last administered on 06/01/19 20:30; Admin Dose 1 CAP; Start 05/27/19 at 21:00 Propofol 100 ml @ 2.055 mls/ hr Q12H IV Last administered on 06/01/19 18:18; Admin Dose 12.33 MLS/HR; Start 05/29/19 at 16:30 Methylprednisolone Sodium Succinate (Solu-Medrol) 30 mg BID IV Last administered on 06/01/19 20:32; Admin Dose 30 MG; Start 05/30/19 at 21:00 Insulin Human NPH (Humulin N) 12 unit BID SC Last administered on 06/01/19at 20:41; Admin Dose 12 UNIT; Start 05/30/19 at 21:00 Vancomycin HCl (Vanco Iv Per Pharmacy) VANCOMYCIN PER PHARMACY PER PROTOCOL XX ; Start 05/31/19 at 09:30 Vancomycin HCl 250 ml @ 125 mls/hr Q24H IVPB Last administered on 06/02/19at 05:41; Admin Dose 125 MLS/HR; Start 06/01/19 at 06:00 Piperacillin Sod/ Tazobactam Sod 100 ml @ 200 mls/hr Q8 IVPB Last administered on 06/02/19at 05:40; Admin Dose 200 MLS/HR; Start 06/01/19 at 09:00 Allergies: Coded Allergies: No Known Allergy (Unverified , 05/10/19) Past Surgical History Past Surgical Hx: noncontributory Social History Alcohol Use: none Smoking Status: Current every day smoker Drug Use: none Exam/Review of Systems Exam Vitals Vital Signs Date Temp Pulse Resp B/P (MAP) Pulse Ox O2 O2 Flow FiO2 Time Delivery Rate 06/02/19 58 12 98 30 05:30 06/02/19 115/60 Mechanical 01:00 (78) Ventilator 06/02/19 98.4 00:00 Intake and Output 06/01/19 06/01/19 06/02/19 1515:00 23:00 07:00 IntakeIntake Total 650 ml 546.3 ml 122 ml OutputOutput Total 320 ml 310 ml 70 ml BalanceBalance 330 ml 236.3 ml 52 ml Results Result Diagram: 06/02/19 0400 06/02/19 0400 Results 24hrs Laboratory Tests Test 06/01/19 08:21 06/01/19 08:47 06/01/19 12:43 06/01/19 16:37 Bedside Glucose 160 150 155 Blood Gas Specimen Blood arterial Source Arterial Blood 06/01/2019 9:15:46 Date Drawn AM Arterial Blood pH 7.441 (Temp corrected) Arterial Blood 49.2 H pCO2 (Temp correct) Arterial Blood pO2 108.3 H (Temp corrected) Arterial Blood 32.7 H HCO3 Arterial Blood 7.4 H Base Excess Arterial Blood 98.1 Oxygen Saturation Joe Test ACCEPTAB Arterial Blood Gas UVL Puncture Site Arterial 0.3 Blood Carboxyhemog lobin Arterial Blood 0.4 Methemoglobin Blood Gas A-a O2 192.9 H Differential Oxyhemoglobin 97.4 Percent Blood Gas 37.0 Temperature Blood Gas 12.0 Respiration Rate Blood Gas Actual 13 Respiration Rate Blood Gas Modality VENT - AC FiO2 50.0 Blood Gas Tidal 500.0 Volume Blood Gas Low PEEP 5.0 Setting Blood Gas Notified TM Whom Blood Gas Notified 06/01/2019 9:24:32 Time AM Test 06/01/19 20:37 06/02/19 00:39 06/02/19 04:00 06/02/19 05:37 Bedside Glucose 196 160 151 White Blood Count 10.4 # Red Blood Count 3.68 L Hemoglobin 11.2 L Hematocrit 36.1 L Mean Corpuscular 98.1 Volume Mean Corpuscular 30.4 Hemoglobin Mean Corpuscular 31.0 L Hemoglobin Concent Red Cell 14.8 H Distribution Width Platelet Count 273 Mean Platelet 10.6 H Volume Immature 0.800 H Granulocytes % Neutrophils % 93.3 H Lymphocytes % 1.7 L Monocytes % 4.1 Eosinophils % 0.0 Basophils % 0.1 Nucleated Red 0.0 Blood Cells % Immature 0.080 H Granulocytes # Neutrophils # 9.7 H Lymphocytes # 0.2 L Monocytes # 0.4 Eosinophils # 0.0 Basophils # 0.0 Nucleated Red 0.0 Blood Cells # Sodium Level 140 Potassium Level 4.7 Chloride Level 103 Carbon Dioxide 34 H Level Anion Gap 3 L Blood Urea 32 H Nitrogen Creatinine 0.51 L Est Glomerular Filtrat Rate mL/min Glucose Level 143 Calcium Level 8.6 Phosphorus Level 3.3 Magnesium Level 2.6 H Medications Medication Current Medications IV Flush (NS 3 ml) 3 ml PER PROTOCOL IV ; Start 05/18/19 at 02:00 Ondansetron HCl (Zofran Inj) 4 mg Q6H PRN IV NAUSEA/VOMITING; Start 05/18/19 at 02:00 Acetaminophen (Tylenol Tab) 650 mg Q6H PRN PO .PAIN 1-3 OR TEMP; Start 05/18/19 at 02:00 Albuterol/ Ipratropium (Duoneb) 3 ml Q2H RESP THERAPY PRN HHN wheezing; Start 05/18/19 at 09:30 Hydralazine HCl (Apresoline) 10 mg Q4H PRN IV sbp >160 Last administered on 06/01/19 05:02; Admin Dose 10 MG; Start 05/18/19 at 11:00 Clopidogrel Bisulfate (plaVIX) 75 mg DAILY GTB Last administered on 06/01/19 08:19; Admin Dose 75 MG; Start 05/18/19 at 11:00 IV Flush (NS 10 ml) 10 ml PRN PRN IV FLUSH LINE; Start 05/18/19 at 17:30 Lansoprazole (Prevacid) 30 mg DAILY@06 GTB Last administered on 06/02/19 05:41; Admin Dose 30 MG; Start 05/21/19 at 06:00 Albuterol (Ventolin Hfa) 4 puff Q6H RESP THERAPY INH Last administered on 06/02/19 01:27; Admin Dose 4 PUFF; Start 05/21/19 at 20:00 Ipratropium [place] (Atrovent Hfa) 4 puff Q6H RESP THERAPY INH Last administered on 06/02/19 01:27; Admin Dose 4 PUFF; Start 05/21/19 at 20:00 Metoprolol Tartrate (Lopressor) 5 mg Q4 PRN IV SBP > 160 Last administered on 05/22/19 01:59; Admin Dose 5 MG; Start 05/22/19 at 02:00 Morphine Sulfate (morphine) 3 mg Q4H PRN IV SEVERE PAIN LEVEL 7-10 Last administered on 05/29/19 15:21; Admin Dose 3 MG; Start 05/22/19 at 02:00 Insulin Aspart (Novolog Insulin Pen) NOVOLOG *MILD* ALGORI... Q4 SC Last administered on 06/02/19 05:42; Admin Dose 1 UNIT; Start 05/23/19 at 17:00 Miscellaneous Information 1 ea NOTE XX ; Start 05/23/19 at 16:00 Glucose (Glutose) 15 gm Q15M PRN PO DECREASED GLUCOSE; Start 05/23/19 at 16:00 Glucose (Glutose) 22.5 gm Q15M PRN PO DECREASED GLUCOSE; Start 05/23/19 at 16:00 Dextrose (D50w Syringe) 25 ml Q15M PRN IV DECREASED GLUCOSE; Start 05/23/19 at 16:00 Dextrose (D50w Syringe) 50 ml Q15M PRN IV DECREASED GLUCOSE; Start 05/23/19 at 16:00 Glucagon (Glucagen) 1 mg Q15M PRN IM DECREASED GLUCOSE; Start 05/23/19 at 16:00 Glucose (Glutose) 15 gm Q15M PRN BUCCAL DECREASED GLUCOSE; Start 05/23/19 at 16:00 Atorvastatin Calcium (Lipitor) 20 mg HS GTB Last administered on 06/01/19 20:30; Admin Dose 20 MG; Start 05/26/19 at 21:00 Losartan Potassium (Cozaar) 25 mg BID GTB Last administered on 06/02/19at 00:44; Admin Dose 25 MG; Start 05/26/19 at 09:00 Fluconazole (Diflucan) 100 mg DAILY GTB Last administered on 06/01/19 08:19; A dmin Dose 100 MG; Start 05/26/19 at 13:30 Amlodipine Besylate (Norvasc) 5 mg DAILY GTB Last administered on 06/01/19 08:19; Admin Dose 5 MG; Start 05/27/19 at 09:00 Lactobacillus Acidophilus/ Rhamnosus (Culturelle) 1 cap TID GTB Last administered on 06/01/19 20:30; Admin Dose 1 CAP; Start 05/27/19 at 21:00 Propofol 100 ml @ 2.055 mls/ hr Q12H IV Last administered on 06/01/19 18:18; Admin Dose 12.33 MLS/HR; Start 05/29/19 at 16:30 Methylprednisolone Sodium Succinate (Solu-Medrol) 30 mg BID IV Last administered on 06/01/19 20:32; Admin Dose 30 MG; Start 05/30/19 at 21:00 Insulin Human NPH (Humulin N) 12 unit BID SC Last administered on 06/01/19 20:41; Admin Dose 12 UNIT; Start 05/30/19 at 21:00 Vancomycin HCl (Vanco Iv Per Pharmacy) VANCOMYCIN PER PHARMACY PER PROTOCOL XX ; Start 05/31/19 at 09:30 Vancomycin HCl 250 ml @ 125 mls/hr Q24H IVPB Last administered on 06/02/19 05:41; Admin Dose 125 MLS/HR; Start 06/01/19 at 06:00 Piperacillin Sod/ Tazobactam Sod 100 ml @ 200 mls/hr Q8 IVPB Last administered on 8/2/19at 05:40; Admin Dose 200 MLS/HR; Start 06/01/19 at 09:00 KENNETH MÉNDEZ Jun 02, 2019 07:19
[2019-06-02] MEDS ORDERED: HYDROmorphONE 0.2 MG/ML PCA IV SCH (07:30)
[2019-06-02] MEDS: METHYLPREDNISOLONE 40 MG INJ IV SCH (08:43)
[2019-06-02] MEDS: CLOPIDOGREL 75 MG TAB GTB SCH (08:43)
[2019-06-02] MEDS: FLUCONAZOLE 100 MG TAB GTB SCH (08:44)
[2019-06-02] MEDS: AMLODIPINE 5 MG TAB GTB SCH (08:44)
[2019-06-02] MEDS: LACTOBACILLUS RHAMNOSUS CAP GTB SCH (08:44)
[2019-06-02] MEDS: NPH, HUMAN INSULIN ISOPHANE 3ML VIAL SC SCH (08:45)
--- NOTE | 2019-06-02 09:16 | CONS ---
Assessment/Plan Assessment/Plan Assessment/Plan (Daily) Ventilator setting; assist control of 12, tidal volume 500, PEEP of 5, 30% FiO2. Patient is currently on propofol at 26 mics per kilogram per minute. Assessment and recommendations; 1. Patient admitted with severe hypercapnic respiratory failure requiring intubation. Has failed one self extubation as well as multiple weaning trials from ventilator. 2. History of diabetes and hypertension. 3. Right lower lobe pneumonia with interval clinical and radiological improvement. 4. Patient has expressed wish not to have a tracheostomy performed. Continue current supportive care. Patient will be switched over to Versed from propofol. Palliative consult appreciated. Patient likely will be terminally extubated early next week when the patient's niece arrives from [place] of state. Prognosis is very poor. Consultation Date/Type/Reason Admit Date/Time May 18, 2019 at 00:50 Initial Consult Date 05/18/19 Type of Consult Pulmonary/critical care Patient is an 84-year-old gentleman who was sent over from assisted with altered mental status and severe hypoxemia. Upon evaluation patient was found to be in severe hypercapnic respiratory failure with pneumonia. Patient was intubated. By the time I saw him in ER, patient is orally intubated and is currently under paralytic and sedative effect. Patient however did not appear to be in any distress. History has been obtained from medical records. Past medical history; 1. Apparently advanced COPD. 2. Dementia. But the patient according to medical records is ambulatory and is usually awake and alert. Medications; reviewed. Allergies; none. Family history; not available. Social history; patient does have history of heavy smoking. Occupational history; not available. Review of system; not able to be obtained. General exam; elderly male, orally intubated, currently sedated. No distress noted. Requesting Provider: VIRGEN MCQUEEN Date/Time of Note DATE: 06/02/19 TIME: 09:14 24 HR Interval Summary Free Text/Dictation Patient's condition is critical. General exam; elderly male, orally intubated, sedated, currently in no distress. Exam/Review of Systems Exam Vitals Vital Signs Date Temp Pulse Resp B/P (MAP) Pulse Ox O2 O2 Flow FiO2 Time Delivery Rate 06/02/19 58 08:00 06/02/19 21 128/54 100 Mechanical 06:00 (78) Ventilator 06/02/19 30 05:30 06/02/19 98.5 04:00 Intake and Output 06/01/19 06/01/19 06/02/19 1515:00 23:00 07:00 IntakeIntake Total 650 ml 546.3 ml 627 ml OutputOutput Total 320 ml 310 ml 520 ml BalanceBalance 330 ml 236.3 ml 107 ml Exam H ENT exam; supple neck, no lymphadenopathy. 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 Orally intubated. Patient is edentulous. No neck masses. Pupils are small bilaterally. Chest exam; diminished breath sounds throughout. S1-S2 audible, no murmurs. Regular rhythm. Abdomen exam; soft, no organomegaly. Bowel sounds audible. Nondistended. Extremity exam; no peripheral edema clubbing. [employer] exam; patient is sedated. Results Result Diagram: 06/02/19 0400 06/02/19 0400 Results 24hrs Laboratory Tests Test 06/01/19 12:43 06/01/19 16:37 06/01/19 20:37 06/02/19 00:39 Bedside Glucose 150 155 196 160 Test 06/02/19 04:00 06/02/19 05:37 06/02/19 08:42 White Blood Count 10.4 # Red Blood Count 3.68 L Hemoglobin 11.2 L Hematocrit 36.1 L Mean Corpuscular Volume 98.1 Mean Corpuscular 30.4 Hemoglobin Mean Corpuscular 31.0 L Hemoglobin Concent Red Cell Distribution 14.8 H Width Platelet Count 273 Mean Platelet Volume 10.6 H Immature Granulocytes % 0.800 H Neutrophils % 93.3 H Lymphocytes % 1.7 L Monocytes % 4.1 Eosinophils % 0.0 Basophils % 0.1 Nucleated Red Blood 0.0 Cells % Immature Granulocytes # 0.080 H Neutrophils # 9.7 H Lymphocytes # 0.2 L Monocytes # 0.4 Eosinophils # 0.0 Basophils # 0.0 Nucleated Red Blood 0.0 Cells # Sodium Level 140 Potassium Level 4.7 Chloride Level 103 Carbon Dioxide Level 34 H Anion Gap 3 L Blood Urea Nitrogen 32 H Creatinine 0.51 L Est Glomerular Filtrat Rate mL/min Glucose Level 143 Calcium Level 8.6 Phosphorus Level 3.3 Magnesium Level 2.6 H Bedside Glucose 151 162 Medications Medication Current Medications IV Flush (NS 3 ml) 3 ml PER PROTOCOL IV ; Start 05/18/19 at 02:00 Ondansetron HCl (Zofran Inj) 4 mg Q6H PRN IV NAUSEA/VOMITING; Start 05/18/19 at 02:00 Acetaminophen (Tylenol Tab) 650 mg Q6H PRN PO .PAIN 1-3 OR TEMP; Start 05/18/19 at 02:00 Albuterol/ Ipratropium (Duoneb) 3 ml Q2H RESP THERAPY PRN HHN wheezing; Start 05/18/19 at 09:30 Hydralazine HCl (Apresoline) 10 mg Q4H PRN IV sbp >160 Last administered on 06/01/19 05:02; Admin Dose 10 MG; Start 05/18/19 at 11:00 Clopidogrel Bisulfate (plaVIX) 75 mg DAILY GTB Last administered on 06/02/19at 08:43; Admin Dose 75 MG; Start 05/18/19 at 11:00 IV Flush (NS 10 ml) 10 ml PRN PRN IV FLUSH LINE; Start 05/18/19 at 17:30 Lansoprazole (Prevacid) 30 mg DAILY@06 GTB Last administered on 06/02/19at 05:41; Admin Dose 30 MG; Start 05/21/19 at 06:00 Albuterol (Ventolin Hfa) 4 puff Q6H RESP THERAPY INH Last administered on 06/02/19 07:39; Admin Dose 4 PUFF; Start 05/21/19 at 20:00 Ipratropium [place] (Atrovent Hfa) 4 puff Q6H RESP THERAPY INH Last administered on 06/02/19 07:39; Admin Dose 4 PUFF; Start 05/21/19 at 20:00 Metoprolol Tartrate (Lopressor) 5 mg Q4 PRN IV SBP > 160 Last administered on 05/22/19at 01:59; Admin Dose 5 MG; Start 05/22/19 at 02:00 Insulin Aspart (Novolog Insulin Pen) NOVOLOG *MILD* ALGORI... Q4 SC Last administered on 06/02/19 08:46; Admin Dose 1 UNIT; Start 05/23/19 at 17:00 Miscellaneous Information 1 ea NOTE XX ; Start 05/23/19 at 16:00 Glucose (Glutose) 15 gm Q15M PRN PO DECREASED GLUCOSE; Start 05/23/19 at 16:00 Glucose (Glutose) 22.5 gm Q15M PRN PO DECREASED GLUCOSE; Start 05/23/19 at 16:00 Dextrose (D50w Syringe) 25 ml Q15M PRN IV DECREASED GLUCOSE; Start 05/23/19 at 16:00 Dextrose (D50w Syringe) 50 ml Q15M PRN IV DECREASED GLUCOSE; Start 05/23/19 at 16:00 Glucagon (Glucagen) 1 mg Q15M PRN IM DECREASED GLUCOSE; Start 05/23/19 at 16:00 Glucose (Glutose) 15 gm Q15M PRN BUCCAL DECREASED GLUCOSE; Start 05/23/19 at 16:00 Atorvastatin Calcium (Lipitor) 20 mg HS GTB Last administered on 06/01/19at 20:30; Admin Dose 20 MG; Start 05/26/19 at 21:00 Losartan Potassium (Cozaar) 25 mg BID GTB Last administered on 06/02/19 00:44; Admin Dose 25 MG; Start 05/26/19 at 09:00 Fluconazole (Diflucan) 100 mg DAILY GTB Last administered on 06/02/19 08:44; Admin Dose 100 MG; Start 05/26/19 at 13:30 Amlodipine Besylate (Norvasc) 5 mg DAILY GTB Last administered on 06/01/19 08:19; Admin Dose 5 MG; Start 05/27/19 at 09:00 Lactobacillus Acidophilus/ Rhamnosus (Culturelle) 1 cap TID GTB Last administered on 06/02/19 08:44; Admin Dose 1 CAP; Start 05/27/19 at 21:00 Propofol 100 ml @ 2.055 mls/ hr Q12H IV Last administered on 06/01/19 18:18; Admin Dose 12.33 MLS/HR; Start 05/29/19 at 16:30 Methylprednisolone Sodium Succinate (Solu-Medrol) 30 mg BID IV Last admin istered on 06/02/19 08:43; Admin Dose 30 MG; Start 05/30/19 at 21:00 Insulin Human NPH (Humulin N) 12 unit BID SC Last administered on 06/02/19 08:45; Admin Dose 12 UNIT; Start 05/30/19 at 21:00 Vancomycin HCl (Vanco Iv Per Pharmacy) VANCOMYCIN PER PHARMACY PER PROTOCOL XX ; Start 05/31/19 at 09:30 Vancomycin HCl 250 ml @ 125 mls/hr Q24H IVPB Last administered on 06/02/19at 05:41; Admin Dose 125 MLS/HR; Start 06/01/19 at 06:00 Piperacillin Sod/ Tazobactam Sod 100 ml @ 200 mls/hr Q8 IVPB Last administered on 06/02/19at 05:40; Admin Dose 200 MLS/HR; Start 06/01/19 at 09:00 Morphine Sulfate (morphine) 3 mg Q3H PRN IV SEVERE PAIN LEVEL 7-10; Start 06/02/19 at 07:30 Hydromorphone HCl (Dilaudid PROP SETTER) MG/HR CONTINUOUS RATE ... Q4PCA IV ; Start 06/02/19 at 07:30; Status UNV Midazolam HCl 50 ml @ 0.5 mls/hr TITRATE IV ; Start 06/02/19 at 08:30 Miscellaneous Information (*Order Clarification Bulletin) MEDICATION REQUIRES CLARIFICATI... Q8H XX ; Start 06/02/19 at 08:30 JUAN F MATA Jun 02, 2019 09:16
[2019-06-02] MEDS: MIDAZOLAM (DRIP) 50 mg/50 mL 50 ML IV SCH ×2 (09:56→18:45)
--- NOTE | 2019-06-02 11:21 | CONS ---
Assessment/Plan Assessment/Plan Assessment/Plan (Daily) 1. acute hyperrkalemia - resolved 2. Acute kidney injury due to ATN from septic shock + prerenal azotemia - improved 3. acute hypercapnic respiratory failure 2/2 Septic shock and PNA,, intubated on ventilator 4. H/o HTN 5. h/o HL 6. Septic shock due to bilateral PNA 7. Hypotension and Bradycardia - now stable 8. Anemia- Hgb 11.7- stable Plan: BUN/Cr 32/0.51 other electrolytes stable , -IV solu-medrol 30mg IV BID, HCO3 34, monitor it Amlodipine 5 mg PO daily Cozaar 25 mg pO BID , IV hydralazine prn IV abx vancomycin, PO fluconazole , Renally dose all abx and monitor electorlytes, ID following agree with comfort care Will sign off, call us if any questions Consultation Date/Type/Reason Admit Date/Time May 18, 2019 at 00:50 Initial Consult Date 05/18/19 Type of Consult NEPHROLOGY Requesting Provider: VIRGEN MCQUEEN Date/Time of Note DATE: 06/02/19 TIME: 11:21 Exam/Review of Systems Exam Vitals Vital Signs Date Temp Pulse Resp B/P (MAP) Pulse Ox O2 O2 Flow FiO2 Time Delivery Rate 06/02/19 58 08:00 06/02/19 21 128/54 100 Mechanical 06:00 (78) Ventilator 06/02/19 30 05:30 06/02/19 98.5 04:00 Intake and Output 06/01/19 06/01/19 06/02/19 1515:00 23:00 07:00 IntakeIntake Total 650 ml 546.3 ml 627 ml OutputOutput Total 320 ml 310 ml 520 ml BalanceBalance 330 ml 236.3 ml 107 ml Exam Constitutional: non-verbal ENMT: intubated Neck: supple, non-tender Respiratory: congested cough, crackles/rales, diminished breath sounds Cardiovascular: regular rate and rhythm Gastrointestinal: soft, non-tender Musculoskeletal: muscle weakness, swelling (1+ edema ) Neurological: other (intubated sedated on ventilator ) Results Result Diagram: 06/02/19 0400 06/02/19 0400 Results 24hrs Laboratory Tests Test 06/01/19 12:43 06/01/19 16:37 06/01/19 20:37 06/02/19 00:39 Bedside Glucose 150 155 196 160 Test 06/02/19 04:00 06/02/19 05:37 06/02/19 08:42 White Blood Count 10.4 # Red Blood Count 3.68 L Hemoglobin 11.2 L Hematocrit 36.1 L Mean Corpuscular Volume 98.1 Mean Corpuscular 30.4 Hemoglobin Mean Corpuscular 31.0 L Hemoglobin Concent Red Cell Distribution 14.8 H Width Platelet Count 273 Mean Platelet Volume 10.6 H Immature Granulocytes % 0.800 H Neutrophils % 93.3 H Lymphocytes % 1.7 L Monocytes % 4.1 Eosinophils % 0.0 Basophils % 0.1 Nucleated Red Blood 0.0 Cells % Immature Granulocytes # 0.080 H Neutrophils # 9.7 H Lymphocytes # 0.2 L Monocytes # 0.4 Eosinophils # 0.0 Basophils # 0.0 Nucleated Red Blood 0.0 Cells # Sodium Level 140 Potassium Level 4.7 Chloride Level 103 Carbon Dioxide Level 34 H Anion Gap 3 L Blood Urea Nitrogen 32 H Creatinine 0.51 L Est Glomerular Filtrat Rate mL/min Glucose Level 143 Calcium Level 8.6 Phosphorus Level 3.3 Magnesium Level 2.6 H Bedside Glucose 151 162 Medications Medication Current Medications IV Flush (NS 3 ml) 3 ml PER PROTOCOL IV ; Start 05/18/19 at 02:00 Ondansetron HCl (Zofran Inj) 4 mg Q6H PRN IV NAUSEA/VOMITING; Start 05/18/19 at 02:00 IV Flush (NS 10 ml) 10 ml PRN PRN IV FLUSH LINE; Start 05/18/19 at 17:30 Ipratropium [place] (Atrovent Hfa) 4 puff Q6H RESP THERAPY INH Last administered on 06/02/19at 07:39; Admin Dose 4 PUFF; Start 05/21/19 at 20:00 Morphine Sulfate (morphine) 3 mg Q3H PRN IV SEVERE PAIN LEVEL 7-10; Start 06/02/19 at 07:30 Midazolam HCl 50 ml @ 0.5 mls/hr TITRATE IV Last administered on 06/02/19at 09:56; Admin Dose 0.5 MLS/HR; Start 06/02/19 at 08:30 EDGARD CLARKE MD Jun 02, 2019 11:21
--- NOTE | 2019-06-02 13:21 | CONS ---
Assessment/Plan Assessment/Plan Hospital Course (Demo Recall) SUBJECTIVE: No acute changes. MICROBIOLOGY: Blood cultures grew coag-negative staph species, one set. Repeat blood cultures negative. INDWELLINGS: Endotracheal tube, NG tube, Hernández, PICC line. ANTIMICROBIALS: The patient is on: 1. Vancomycin. 2. Zosyn. PHYSICAL EXAMINATION: GENERAL: This is a chronically ill elderly man who is in no distress. HEENT: Head atraumatic, normocephalic. Sclerae anicteric. Buccal mucosa dry. NECK: Supple. CHEST: Rise symmetrical. Breath sounds diminished to bases. HEART: S1, S2. ABDOMEN: Soft, bowel tones present. ASSESSMENT: 1. Acute hypoxemic respiratory failure. 2. Pneumonia. 3. Coagulase-negative Staphylococcus bacteremia, possibly contaminant. 4. Healthcare-associated pneumonia. 5. Diabetes. 6. Encephalopathy. PLAN: Patient was transitioned to comfort care, will sign off Consultation Date/Type/Reason Admit Date/Time May 18, 2019 at 00:50 Initial Consult Date 05/18/19 Type of Consult id Requesting Provider: VIRGEN MCQUEEN Date/Time of Note DATE: 06/02/19 TIME: 13:20 Exam/Review of Systems Exam Vitals Vital Signs Date Temp Pulse Resp B/P (MAP) Pulse Ox O2 O2 Flow FiO2 Time Delivery Rate 06/02/19 62 12:00 06/02/19 13 95 30 11:30 06/02/19 95/46 (62) Mechanical 10:00 Ventilator 06/02/19 98.5 08:00 Intake and Output 06/01/19 06/01/19 06/02/19 1515:00 23:00 07:00 IntakeIntake Total 650 ml 546.3 ml 677 ml OutputOutput Total 320 ml 310 ml 550 ml BalanceBalance 330 ml 236.3 ml 127 ml Results Result Diagram: 06/02/19 0400 06/02/19 0400 Results 24hrs Laboratory Tests Test 06/01/19 16:37 06/01/19 20:37 06/02/19 00:39 06/02/19 04:00 Bedside Glucose 155 196 160 White Blood Count 10.4 # Red Blood Count 3.68 L Hemoglobin 11.2 L Hematocrit 36.1 L Mean Corpuscular Volume 98.1 Mean Corpuscular 30.4 Hemoglobin Mean Corpuscular 31.0 L Hemoglobin Concent Red Cell Distribution 14.8 H Width Platelet Count 273 Mean Platelet Volume 10.6 H Immature Granulocytes % 0.800 H Neutrophils % 93.3 H Lymphocytes % 1.7 L Monocytes % 4.1 Eosinophils % 0.0 Basophils % 0.1 Nucleated Red Blood 0.0 Cells % Immature Granulocytes # 0.080 H Neutrophils # 9.7 H Lymphocytes # 0.2 L Monocytes # 0.4 Eosinophils # 0.0 Basophils # 0.0 Nucleated Red Blood 0.0 Cells # Sodium Level 140 Potassium Level 4.7 Chloride Level 103 Carbon Dioxide Level 34 H Anion Gap 3 L Blood Urea Nitrogen 32 H Creatinine 0.51 L Est Glomerular Filtrat Rate mL/min Glucose Level 143 Calcium Level 8.6 Phosphorus Level 3.3 Magnesium Level 2.6 H Test 06/02/19 05:37 06/02/19 08:42 Bedside Glucose 151 162 Medications Medication Current Medications IV Flush (NS 3 ml) 3 ml PER PROTOCOL IV ; Start 05/18/19 at 02:00 Ondansetron HCl (Zofran Inj) 4 mg Q6H PRN IV NAUSEA/VOMITING; Start 05/18/19 at 02:00 IV Flush (NS 10 ml) 10 ml PRN PRN IV FLUSH LINE; Start 05/18/19 at 17:30 Ipratropium [place] (Atrovent Hfa) 4 puff Q6H RESP THERAPY INH Last administered on 06/02/19at 07:39; Admin Dose 4 PUFF; Start 05/21/19 at 20:00 Morphine Sulfate (morphine) 3 mg Q3H PRN IV SEVERE PAIN LEVEL 7-10; Start 06/02/19 at 07:30 Midazolam HCl 50 ml @ 0.5 mls/hr TITRATE IV Last administered on 06/02/19at 09:56; Admin Dose 0.5 MLS/HR; Start 06/02/19 at 08:30 KURT ESTRELLA NP Jun 02, 2019 13:21
--- NOTE | 2019-06-02 13:27 | CONS ---
Assessment/Plan Assessment/Plan Hospital Course (Demo Recall) Respiratory failure, status post intubation History of hypertension with labile blood pressure currently Encephalopathy Preserved left ventricular ejection fraction COPD Acute kidney injury In discussion with nursing staff, it appears patient family planning on going towards comfort measures Vent management as per pulmonary Consultation Date/Type/Reason Admit Date/Time May 18, 2019 at 00:50 Initial Consult Date 05/18/19 Type of Consult Cardiology Requesting Provider: VIRGEN MCQUEEN Date/Time of Note DATE: 06/02/19 TIME: 13:25 24 HR Interval Summary Free Text/Dictation Sedated and intubated Exam/Review of Systems Vital Signs Vitals Vital Signs Date Temp Pulse Resp B/P (MAP) Pulse Ox O2 O2 Flow FiO2 Time Delivery Rate 06/02/19 62 12:00 06/02/19 13 95 30 11:30 06/02/19 95/46 (62) Mechanical 10:00 Ventilator 06/02/19 98.5 08:00 Intake and Output 06/01/19 06/01/19 06/02/19 1515:00 23:00 07:00 IntakeIntake Total 650 ml 546.3 ml 677 ml OutputOutput Total 320 ml 310 ml 550 ml BalanceBalance 330 ml 236.3 ml 127 ml Exam Exam Sedated and intubated, no apparent distress Head: normocephalic ENMT: intubated Respiratory: other (Coarse breath sounds bilaterally, no wheezing) Cardiovascular: regular rate and rhythm (S1-S2 heard), other Gastrointestinal: soft, non-tender, bowel sounds Extremities: edema Labs Result Diagram: 06/02/19 0400 06/02/19 0400 Results 24hrs Laboratory Tests Test 06/01/19 16:37 06/01/19 20:37 06/02/19 00:39 06/02/19 04:00 Bedside Glucose 155 196 160 White Blood Count 10.4 # Red Blood Count 3.68 L Hemoglobin 11.2 L Hematocrit 36.1 L Mean Corpuscular Volume 98.1 Mean Corpuscular 30.4 Hemoglobin Mean Corpuscular 31.0 L Hemoglobin Concent Red Cell Distribution 14.8 H Width Platelet Count 273 Mean Platelet Volume 10.6 H Immature Granulocytes % 0.800 H Neutrophils % 93.3 H Lymphocytes % 1.7 L Monocytes % 4.1 Eosinophils % 0.0 Basophils % 0.1 Nucleated Red Blood 0.0 Cells % Immature Granulocytes # 0.080 H Neutrophils # 9.7 H Lymphocytes # 0.2 L Monocytes # 0.4 Eosinophils # 0.0 Basophils # 0.0 Nucleated Red Blood 0.0 Cells # Sodium Level 140 Potassium Level 4.7 Chloride Level 103 Carbon Dioxide Level 34 H Anion Gap 3 L Blood Urea Nitrogen 32 H Creatinine 0.51 L Est Glomerular Filtrat Rate mL/min Glucose Level 143 Calcium Level 8.6 Phosphorus Level 3.3 Magnesium Level 2.6 H Test 06/02/19 05:37 06/02/19 08:42 Bedside Glucose 151 162 Medications Medications Current Medications IV Flush (NS 3 ml) 3 ml PER PROTOCOL IV ; Start 05/18/19 at 02:00 Ondansetron HCl (Zofran Inj) 4 mg Q6H PRN IV NAUSEA/VOMITING; Start 05/18/19 at 02:00 IV Flush (NS 10 ml) 10 ml PRN PRN IV FLUSH LINE; Start 05/18/19 at 17:30 Ipratropium [place] (Atrovent Hfa) 4 puff Q6H RESP THERAPY INH Last administered on 06/02/19at 07:39; Admin Dose 4 PUFF; Start 05/21/19 at 20:00 Morphine Sulfate (morphine) 3 mg Q3H PRN IV SEVERE PAIN LEVEL 7-10; Start 06/02/19 at 07:30 Midazolam HCl 50 ml @ 0.5 mls/hr TITRATE IV Last administered on 06/02/19at 09:56; Admin Dose 0.5 MLS/HR; Start 06/02/19 at 08:30 Bao Garza DO Jun 02, 2019 13:27
--- NOTE | 2019-06-02 13:47 | PN ---
Date/Time of Note Date/Time of Note DATE: 06/02/19 TIME: 13:41 Objective Vitals Vital Signs Date Temp Pulse Resp B/P (MAP) Pulse Ox O2 O2 Flow FiO2 Time Delivery Rate 06/02/19 62 12:00 06/02/19 13 95 30 11:30 06/02/19 95/46 (62) Mechanical 10:00 Ventilator 06/02/19 98.5 08:00 Intake and Output 06/01/19 06/01/19 06/02/19 1515:00 23:00 07:00 IntakeIntake Total 650 ml 546.3 ml 677 ml OutputOutput Total 320 ml 310 ml 550 ml BalanceBalance 330 ml 236.3 ml 127 ml Results Result Diagram: 06/02/19 0400 06/02/19 0400 Medications Medications Current Medications IV Flush (NS 3 ml) 3 ml PER PROTOCOL IV ; Start 05/18/19 at 02:00 Ondansetron HCl (Zofran Inj) 4 mg Q6H PRN IV NAUSEA/VOMITING; Start 05/18/19 at 02:00 IV Flush (NS 10 ml) 10 ml PRN PRN IV FLUSH LINE; Start 05/18/19 at 17:30 Ipratropium [place] (Atrovent Hfa) 4 puff Q6H RESP THERAPY INH Last administered on 06/02/19at 07:39; Admin Dose 4 PUFF; Start 05/21/19 at 20:00 Morphine Sulfate (morphine) 3 mg Q3H PRN IV SEVERE PAIN LEVEL 7-10; Start 06/02/19 at 07:30 Midazolam HCl 50 ml @ 0.5 mls/hr TITRATE IV Last administered on 06/02/19at 09:56; Admin Dose 0.5 MLS/HR; Start 06/02/19 at 08:30 VTE Prophylaxis Risk score (from Ns)>0 risk: 4 SCD applied (from Nsg): Yes Lines/Catheters IV Catheter Type: Hernández in Place: No Assessment/Plan Hospital Course Subjective no acute changes Objective Physical exam General: Patient is laying in bed intubated mentation: Patient is sedated Head: Normocephalic atraumatic Eyes: EOMI, pupils reactive to light Neck: Supple, nontender, midline Respiratory: Coarse to auscultation bilaterally Cardiovascular: bradycardic rate, no obvious murmurs Gastrointestinal: non-tender to palpation, bowel sounds heard. Neurological: Unable to fully assess Skin: No new skin lesions Assessment/Plan 1. Acute hypoxic respiratory failure -Keep intubated but comfort measures 2. COPD exacerbation -Monitor leukocytosis, fluctuating -Monitor bacteremia -Monitor 3. Acute toxic encephalopathy- stable -Monitor 4. Acute kidney injury- resolved -Monitor 5. Hypertension - monitor 6. Mild cognitive impairment - monitor 7. Mild carotid stenosis, right ICA - monitor 8. Hyperglycemia- improved - monitor 9. Arrhythmia -monitor 10. Disposition -Palliative care had a long discussion with patient's niece who is patient's only living relative. As per our evaluation yesterday to test if patient is cognizant enough for making decisions it became evident that although patient can respond yes or no he clearly does not understand the extent of his issues and is unable to grasp the severity of the situation. At this point it is my belief that patient cannot make decisions regarding his life and oriented manner. His niece understands this and decided to place patient on comfort measures only, however wants to hold off from terminal extubation in an attempt to visit her uncle before he passes away, she requests that no additional medications or labs be drawn per palliative care recommendations. We will continue comfort care measures to hold off on terminal extubation if patient passes away before the niece gets here, patient's niece states that she understands and is okay with the decision. >40 minutes of critical care time spend with patient VIRGEN MCQUEEN Jun 02, 2019 13:47
[2019-06-02] MEDS: morphine 4 MG/ML VIAL IV PRN (20:04)
[2019-06-03] VITALS (54 sets, daily range): BP systolic 97–137; BP diastolic 44–85; PULSE 49–69; RESP 12–25
[2019-06-03] MEDS: morphine 4 MG/ML VIAL IV PRN ×3 (01:18→23:49)
[2019-06-03] MEDS: IPRATROPIUM (HFA) 12.9 GM INHALER INH SCH ×4 (01:41→19:45)
[2019-06-03] MEDS: MIDAZOLAM (DRIP) 50 mg/50 mL 50 ML IV SCH ×3 (05:13→21:38)
--- NOTE | 2019-06-03 08:55 | CONS ---
Assessment/Plan Assessment/Plan Assessment/Plan (Daily) Ventilator setting; AC of 12, tidal volume 500, PEEP of 5, 30% FiO2. Patient is currently on Versed 7 mg/h. Assessment and recommendations; 1. Patient admitted with severe hypercapnic respiratory failure due to end- stage COPD. Switched over to comfort care measures awaiting arrival of family member before terminal extubation early next week. Continue current supportive care. Prognosis is very poor. Consultation Date/Type/Reason Admit Date/Time May 18, 2019 at 00:50 Initial Consult Date 05/18/19 Type of Consult Pulmonary/critical care Patient is an 84-year-old gentleman who was sent over from skilled nursing with al tered mental status and severe hypoxemia. Upon evaluation patient was found to be in severe hypercapnic respiratory failure with pneumonia. Patient was intubated. By the time I saw him in ER, patient is orally intubated and is currently under paralytic and sedative effect. Patient however did not appear to be in any distress. History has been obtained from medical records. Past medical history; 1. Apparently advanced COPD. 2. Dementia. But the patient according to medical records is ambulatory and is usually awake and alert. Medications; reviewed. Allergies; none. Family history; not available. Social history; patient does have history of heavy smoking. Occupational history; not available. Review of system; not able to be obtained. General exam; elderly male, orally intubated, currently sedated. No distress noted. Requesting Provider: VIRGEN MCQUEEN Date/Time of Note DATE: 06/03/19 TIME: 08:53 24 HR Interval Summary Free Text/Dictation Patient's condition is critical. Has been switched over to comfort care measures, however patient remains intubated awaiting arrival of family member from out of state early next week. General exam; elderly male, orally intubated, sedated, currently in no distress. Exam/Review of Systems Exam Vitals Vital Signs Date Temp Pulse Resp B/P (MAP) Pulse Ox O2 O2 Flow FiO2 Time Delivery Rate 06/03/19 50 08:00 06/03/19 12 91 07:45 06/03/19 121/51 Mechanical 07:30 (74) Ventilator 06/03/19 30 05:41 06/03/19 96.8 04:00 Intake and Output 06/02/19 06/02/19 06/03/19 1515:00 23:00 07:00 IntakeIntake Total 468.0 ml 490 ml 500 ml OutputOutput Total 280 ml 275 ml 220 ml BalanceBalance 188.0 ml 215 ml 280 ml Exam H ENT exam; supple neck, patient is edentulous. Orally intubated. 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 Pupils are small bilaterally. Chest exam; diminished breath sounds throughout. S1-S2 audible, no murmurs. Regular rhythm. Abdomen exam; soft, no organomegaly. Bowel sounds audible. Extremity exam; no peripheral edema clubbing. [employer] W[employer]ER exam; patient is sedated. Results Result Diagram: 06/02/1939906/02/19 040 Medications Medication Current Medications IV Flush (NS 3 ml) 3 ml PER PROTOCOL IV ; Start 05/18/19 at 02:00 Ondansetron HCl (Zofran Inj) 4 mg Q6H PRN IV NAUSEA/VOMITING; Start 05/18/19 at 02:00 IV Flush (NS 10 ml) 10 ml PRN PRN IV FLUSH LINE; Start 05/18/19 at 17:30 Ipratropium [place] (Atrovent Hfa) 4 puff Q6H RESP THERAPY INH Last administered on 06/03/19at 01:41; Admin Dose 4 PUFF; Start 05/21/19 at 20:00 Morphine Sulfate (morphine) 3 mg Q3H PRN IV SEVERE PAIN LEVEL 7-10 Last administered on 06/03/19 01:18; Admin Dose 3 MG; Start 06/02/19 at 07:30 Midazolam HCl 50 ml @ 0.5 mls/hr TITRATE IV Last administered on 06/03/19at 05:13; Admin Dose 7.5 MLS/HR; Start 06/02/19 at 08:30 JUAN F MATA Jun 03, 2019 08:55
--- NOTE | 2019-06-03 12:16 | PN ---
Date/Time of Note Date/Time of Note DATE: 06/03/19 TIME: 12:15 Objective Vitals Vital Signs Date Temp Pulse Resp B/P (MAP) Pulse Ox O2 O2 Flow FiO2 Time Delivery Rate 06/03/19 59 12 110/51 100 Mechanical 11:30 (70) Ventilator 06/03/19 30 11:16 06/03/19 96.8 04:00 Intake and Output 06/02/19 06/02/19 06/03/19 1515:00 23:00 07:00 IntakeIntake Total 468.0 ml 490 ml 500 ml OutputOutput Total 280 ml 275 ml 220 ml BalanceBalance 188.0 ml 215 ml 280 ml Results Result Diagram: 06/02/19 0400 06/02/19 0400 Medications Medications Current Medications IV Flush (NS 3 ml) 3 ml PER PROTOCOL IV ; Start 05/18/19 at 02:00 Ondansetron HCl (Zofran Inj) 4 mg Q6H PRN IV NAUSEA/VOMITING; Start 05/18/19 at 02:00 IV Flush (NS 10 ml) 10 ml PRN PRN IV FLUSH LINE; Start 05/18/19 at 17:30 Ipratropium [place] (Atrovent Hfa) 4 puff Q6H RESP THERAPY INH Last administered on 06/03/19at 09:23; Admin Dose 4 PUFF; Start 05/21/19 at 20:00 Morphine Sulfate (morphine) 3 mg Q3H PRN IV SEVERE PAIN LEVEL 7-10 Last administered on 06/03/19at 01:18; Admin Dose 3 MG; Start 06/02/19 at 07:30 Midazolam HCl 50 ml @ 0.5 mls/hr TITRATE IV Last administered on 06/03/19at 05:13; Admin Dose 7.5 MLS/HR; Start 06/02/19 at 08:30 VTE Prophylaxis Risk score (from Nsg)>0 risk: 11 SCD applied (from Nsg): Yes Lines/Catheters IV Catheter Type: Hernández in Place: No Assessment/Plan Hospital Course Subjective no acute changes Objective Physical exam General: Patient is laying in bed intubated mentation: Patient is sedated Head: Normocephalic atraumatic Eyes: EOMI, pupils reactive to light Neck: Supple, nontender, midline Respiratory: Coarse to auscultation bilaterally Cardiovascular: bradycardic rate, no obvious murmurs Gastrointestinal: non-tender to palpation, bowel sounds heard. Neurological: Unable to fully assess Skin: No new skin lesions Assessment/Plan 1. Acute hypoxic respiratory failure -Keep intubated but comfort measures 2. COPD exacerbation -Monitor leukocytosis, fluctuating -Monitor bacteremia -Monitor 3. Acute toxic encephalopathy- stable -Monitor 4. Acute kidney injury- resolved -Monitor 5. Hypertension - monitor 6. Mild cognitive impairment - monitor 7. Mild carotid stenosis, right ICA - monitor 8. Hyperglycemia- improved - monitor 9. Arrhythmia -monitor 10. Disposition -Palliative care had a long discussion with patient's niece who is patient's only living relative. As per our evaluation earlier in the week to test if patient is cognizant enough for making decisions it became evident that although patient can respond yes or no, but he clearly does not understand the extent of his issues and is unable to grasp the severity of the situation. At this point it is my belief that patient cannot make decisions regarding his life in an oriented manner. His niece understands this and decided to place patient on comfort measures only, however wants to hold off from terminal extubation in an attempt to visit her uncle before he passes away, she requests that no additional medications or labs be drawn per palliative care recommendations. We will continue comfort care measures ,but hold off on terminal extubation. If patient passes away before the niece gets here, patient's niece states that she understands and is okay with the decision of letting him pass away before she arrives. >40 minutes of critical care time spend with patient VIRGEN MCQUEEN Jun 03, 2019 12:16
--- NOTE | 2019-06-03 13:51 | CONS ---
Assessment/Plan Assessment/Plan Assessment/Plan (Daily) Respiratory failure, status post intubation History of hypertension with labile blood pressure currently Encephalopathy Preserved left ventricular ejection fraction COPD Acute kidney injury In discussion with nursing staff, it appears patient family planning on going towards comfort measures Vent management as per pulmonary Consultation Date/Type/Reason Admit Date/Time May 18, 2019 at 00:50 Initial Consult Date 05/18/19 Type of Consult Cardiology Requesting Provider: VIRGEN MCQUEEN Date/Time of Note DATE: 06/03/19 TIME: 13:51 24 HR Interval Summary Free Text/Dictation The patient with no chgne Exam/Review of Systems Vital Signs Vitals Vital Signs Date Temp Pulse Resp B/P (MAP) Pulse Ox O2 O2 Flow FiO2 Time Delivery Rate 06/03/19 12 115/50 96 13:30 (71) 06/03/19 55 30 13:05 06/03/19 Mechanical 13:00 Ventilator 06/03/19 98.5 12:00 Intake and Output 06/02/19 06/02/19 06/03/19 1515:00 23:00 07:00 IntakeIntake Total 468.0 ml 490 ml 500 ml OutputOutput Total 280 ml 275 ml 220 ml BalanceBalance 188.0 ml 215 ml 280 ml Labs Result Diagram: 06/02/19 0400 06/02/19 0400 Medications Medications Current Medications IV Flush (NS 3 ml) 3 ml PER PROTOCOL IV ; Start 05/18/19 at 02:00 Ondansetron HCl (Zofran Inj) 4 mg Q6H PRN IV NAUSEA/VOMITING; Start 05/18/19 at 02:00 IV Flush (NS 10 ml) 10 ml PRN PRN IV FLUSH LINE; Start 05/18/19 at 17:30 Ipratropium [place] (Atrovent Hfa) 4 puff Q6H RESP THERAPY INH Last administered on 06/03/19at 13:03; Admin Dose 4 PUFF; Start 05/21/19 at 20:00 Morphine Sulfate (morphine) 3 mg Q3H PRN IV SEVERE PAIN LEVEL 7-10 Last administered on 06/03/19at 01:18; Admin Dose 3 MG; Start 06/02/19 at 07:30 Midazolam HCl 50 ml @ 0.5 mls/hr TITRATE IV Last administered on 06/03/19at 05:13; Admin Dose 7.5 MLS/HR; Start 06/02/19 at 08:30 RAHUL JONES MD Jun 03, 2019 13:51
--- NOTE | 2019-06-03 17:22 | CONS ---
Assessment/Plan Assessment/Plan Assessment/Plan (Daily) 1. acute hyperrkalemia - resolved 2. Acute kidney injury due to ATN from septic shock + prerenal azotemia - improved 3. acute hypercapnic respiratory failure 2/2 Septic shock and PNA,, intubated on ventilator 4. H/o HTN 5. h/o HL 6. Septic shock due to bilateral PNA 7. Hypotension and Bradycardia - now stable 8. Anemia- Hgb 11.7- stable Plan: BUN/Cr 32/0.51 other electrolytes stable , -IV solu-medrol 30mg IV BID, HCO3 34, monitor it Amlodipine 5 mg PO daily Cozaar 25 mg pO BID , IV hydralazine prn IV abx vancomycin, PO fluconazole , Renally dose all abx and monitor electorlytes, ID following agree with comfort care Will sign off, call us if any questions Consultation Date/Type/Reason Admit Date/Time May 18, 2019 at 00:50 Initial Consult Date 05/18/19 Type of Consult NEPHROLOGY Requesting Provider: VIRGEN MCQUEEN Date/Time of Note DATE: 06/03/19 TIME: 17:21 Exam/Review of Systems Exam Vitals Vital Signs Date Temp Pulse Resp B/P (MAP) Pulse Ox O2 O2 Flow FiO2 Time Delivery Rate 06/03/19 98.5 23 116/53 98 Mechanical 16:00 (74) Ventilator 06/03/19 63 16:00 06/03/19 30 15:15 Intake and Output 06/02/19 06/02/19 06/03/19 1515:00 23:00 07:00 IntakeIntake Total 468.0 ml 490 ml 507 ml OutputOutput Total 280 ml 275 ml 220 ml BalanceBalance 188.0 ml 215 ml 287 ml Results Result Diagram: 06/02/19 0400 06/02/19 0400 Medications Medication Current Medications IV Flush (NS 3 ml) 3 ml PER PROTOCOL IV ; Start 05/18/19 at 02:00 Ondansetron HCl (Zofran Inj) 4 mg Q6H PRN IV NAUSEA/VOMITING; Start 05/18/19 at 02:00 IV Flush (NS 10 ml) 10 ml PRN PRN IV FLUSH LINE; Start 05/18/19 at 17:30 Ipratropium [place] (Atrovent Hfa) 4 puff Q6H RESP THERAPY INH Last adminis tered on 06/03/19at 13:03; Admin Dose 4 PUFF; Start 05/21/19 at 20:00 Morphine Sulfate (morphine) 3 mg Q3H PRN IV SEVERE PAIN LEVEL 7-10 Last administered on 06/03/19 01:18; Admin Dose 3 MG; Start 06/02/19 at 07:30 Midazolam HCl 50 ml @ 0.5 mls/hr TITRATE IV Last administered on 06/03/19at 14:46; Admin Dose 7 MLS/HR; Start 06/02/19 at 08:30 EDGARD CLARKE MD Jun 03, 2019 17:22
[2019-06-04] VITALS (52 sets, daily range): BP systolic 103–139; BP diastolic 43–59; PULSE 64–79; RESP 12–27
[2019-06-04] MEDS: IPRATROPIUM (HFA) 12.9 GM INHALER INH SCH ×4 (01:39→19:23)
[2019-06-04] MEDS: morphine 4 MG/ML VIAL IV PRN ×2 (03:13→19:59)
[2019-06-04] MEDS: MIDAZOLAM (DRIP) 50 mg/50 mL 50 ML IV SCH ×3 (03:40→17:56)
--- NOTE | 2019-06-04 08:16 | CONS ---
Assessment/Plan Assessment/Plan Assessment/Plan (Daily) 1. acute hyperrkalemia - resolved 2. Acute kidney injury due to ATN from septic shock + prerenal azotemia - improved 3. acute hypercapnic respiratory failure 2/2 Septic shock and PNA,, intubated on ventilator 4. H/o HTN 5. h/o HL 6. Septic shock due to bilateral PNA 7. Hypotension and Bradycardia - now stable 8. Anemia- Hgb 11.7- stable Plan: DNR code status awaiting family to decide on comfort will follow up Consultation Date/Type/Reason Admit Date/Time May 18, 2019 at 00:50 Initial Consult Date 05/18/19 Type of Consult NEPHROLOGY Requesting Provider: VIRGEN MCQUEEN Date/Time of Note DATE: 06/04/19 TIME: 08:16 Exam/Review of Systems Exam Vitals Vital Signs Date Temp Pulse Resp B/P (MAP) Pulse Ox O2 O2 Flow FiO2 Time Delivery Rate 06/04/19 13 108/47 99 06:30 (67) 06/04/19 72 30 05:30 06/04/19 99.2 04:00 06/04/19 Mechanical 03:00 Ventilator Intake and Output 06/03/19 06/03/19 06/04/19 1515:00 23:00 07:00 IntakeIntake Total 506 ml 529.5 ml 519 ml OutputOutput Total 240 ml 465 ml 305 ml BalanceBalance 266 ml 64.5 ml 214 ml Results Result Diagram: 06/02/19 0400 06/02/19 0400 Medications Medication Current Medications IV Flush (NS 3 ml) 3 ml PER PROTOCOL IV ; Start 05/18/19 at 02:00 Ondansetron HCl (Zofran Inj) 4 mg Q6H PRN IV NAUSEA/VOMITING; Start 05/18/19 at 02:00 IV Flush (NS 10 ml) 10 ml PRN PRN IV FLUSH LINE; Start 05/18/19 at 17:30 Ipratropium [place] (Atrovent Hfa) 4 puff Q6H RESP THERAPY INH Last administered on 06/04/19at 08:11; Admin Dose 4 PUFF; Start 05/21/19 at 20:00 Morphine Sulfate (morphine) 3 mg Q3H PRN IV SEVERE PAIN LEVEL 7-10 Last administered on 06/04/19at 03:13; Admin Dose 3 MG; Start 06/02/19 at 07:30 Midazolam HCl 50 ml @ 0.5 mls/hr TITRATE IV Last administered on 06/04/19at 03:40; Admin Dose 9 MLS/HR; Start 06/02/19 at 08:30 EDGARD CLARKE MD Jun 04, 2019 08:16
--- NOTE | 2019-06-04 08:47 | PN ---
Date/Time of Note Date/Time of Note DATE: 06/04/19 TIME: 08:46 Objective Vitals Vital Signs Date Temp Pulse Resp B/P (MAP) Pulse Ox O2 O2 Flow FiO2 Time Delivery Rate 06/04/19 75 12 99 30 07:15 06/04/19 108/47 06:30 (67) 06/04/19 99.2 04:00 06/04/19 Mechanical 03:00 Ventilator Intake and Output 06/03/19 06/03/19 06/04/19 1515:00 23:00 07:00 IntakeIntake Total 506 ml 529.5 ml 519 ml OutputOutput Total 240 ml 465 ml 305 ml BalanceBalance 266 ml 64.5 ml 214 ml Results Result Diagram: 06/02/19 0400 06/02/19 0400 Medications Medications Current Medications IV Flush (NS 3 ml) 3 ml PER PROTOCOL IV ; Start 05/18/19 at 02:00 Ondansetron HCl (Zofran Inj) 4 mg Q6H PRN IV NAUSEA/VOMITING; Start 05/18/19 at 02:00 IV Flush (NS 10 ml) 10 ml PRN PRN IV FLUSH LINE; Start 05/18/19 at 17:30 Ipratropium [place] (Atrovent Hfa) 4 puff Q6H RESP THERAPY INH Last administered on 06/04/19at 08:11; Admin Dose 4 PUFF; Start 05/21/19 at 20:00 Morphine Sulfate (morphine) 3 mg Q3H PRN IV SEVERE PAIN LEVEL 7-10 Last administered on 06/04/19at 03:13; Admin Dose 3 MG; Start 06/02/19 at 07:30 Midazolam HCl 50 ml @ 0.5 mls/hr TITRATE IV Last administered on 06/04/19at 03:40; Admin Dose 9 MLS/HR; Start 06/02/19 at 08:30 VTE Prophylaxis Risk score (from Nsg)>0 risk: 11 SCD applied (from Nsg): Yes Lines/Catheters IV Catheter Type: Hernández in Place: No Assessment/Plan Hospital Course Subjective no acute changes Objective Physical exam General: Patient is laying in bed intubated mentation: Patient is sedated Head: Normocephalic atraumatic Eyes: EOMI, pupils reactive to light Neck: Supple, nontender, midline Respiratory: Coarse to auscultation bilaterally Cardiovascular: bradycardic rate, no obvious murmurs Gastrointestinal: non-tender to palpation, bowel sounds heard. Neurological: Unable to fully assess Skin: No new skin lesions Assessment/Plan 1. Acute hypoxic respiratory failure -Keep intubated but comfort measures 2. COPD exacerbation -Monitor leukocytosis, fluctuating -Monitor bacteremia -Monitor 3. Acute toxic encephalopathy- stable -Monitor 4. Acute kidney injury- resolved -Monitor 5. Hypertension - monitor 6. Mild cognitive impairment - monitor 7. Mild carotid stenosis, right ICA - monitor 8. Hyperglycemia- improved - monitor 9. Arrhythmia -monitor 10. Disposition -Palliative care had a long discussion with patient's niece who is patient's only living relative. As per our evaluation earlier in the week to test if patient is cognizant enough for making decisions it became evident that although patient can respond yes or no, but he clearly does not understand the extent of his issues and is unable to grasp the severity of the situation. At this point it is my belief that patient cannot make decisions regarding his life in an oriented manner. His niece understands this and decided to place patient on co mfort measures only, however wants to hold off from terminal extubation in an attempt to visit her uncle before he passes away, she requests that no additional medications or labs be drawn per palliative care recommendations. We will continue comfort care measures ,but hold off on terminal extubation. If patient passes away before the niece gets here, patient's niece states that she understands and is okay with the decision of letting him pass away before she arrives. >40 minutes of critical care time spend with patient VIRGEN MCQUEEN Jun 04, 2019 08:47
--- NOTE | 2019-06-04 11:59 | CONS ---
Consult Date/Type/Reason Admit Date/Time May 18, 2019 at 00:50 Initial Consult Date 05/18/19 Type of Consultation: Pilm/CCM Requesting Provider: VIRGEN MCQUEEN Date/Time of Note DATE: 06/04/19 TIME: 11:55 Subjective Remains sedated on mechanical ventilation. Objective Vitals Vital Signs Date Temp Pulse Resp B/P (MAP) Pulse Ox O2 O2 Flow FiO2 Time Delivery Rate 06/04/19 12 120/47 95 11:00 (71) 06/04/19 75 30 11:00 06/04/19 99.2 04:00 06/04/19 Mechanical 03:00 Ventilator Intake and Output 06/03/19 06/03/19 06/04/19 1515:00 23:00 07:00 IntakeIntake Total 506 ml 529.5 ml 578 ml OutputOutput Total 240 ml 465 ml 340 ml BalanceBalance 266 ml 64.5 ml 238 ml Exam EENT: Neck supple; no JVD; no LAD; + ET tube CVS: RRR, S1 and S2 CHEST: Diminished BS B/L ABD: Soft, NT,+ BS EXT: No c/c: trace edema NEURO: Sedated; moves all extremities Results/Medications Result Diagram: 06/02/19 0400 06/02/19 0400 Home Meds Active Scripts Atorvastatin Calcium (Atorvastatin Calcium) 20 Mg Tablet, 20 MG PO HS for 30 Days, TAB Prov:VIRGEN MCQUEEN 05/16/19 Reported Medications Mineral Oil* (Fleet* Mineral Oil Enema) 133 Ml Oil, 133 ML NV Q48H PRN for CONSTIPATION, ENEMA 05/18/19 Bisacodyl* (Dulcolax*) 5 Mg Tablet.dr, 10 MG PO DAILY PRN for CONSTIPATION, TAB 05/18/19 Magnesium Hydroxide* (Milk Of Magnesia*) 400 Mg/5 Ml Oral.susp, 30 ML PO QHS PRN for CONSTIPATION, ML 05/18/19 Docusate Sodium* (Colace*) 100 Mg Capsule, 200 MG PO QHS, #30 CAP 05/18/19 Acetaminophen* (Acetaminophen*) 500 MG Extra Strength Tablet, 1000 MG PO Q6H PRN for MILD PAIN(1-3)OR ELEVATED TEMP, TAB 05/18/19 Acetaminophen* (Tylenol*) 325 Mg Tablet, 650 MG PO Q4H PRN for MILD PAIN LEVEL 1-3, TAB MILD PAIN, LOJA SCALE 1/10 - 3/10, OR FEVER ABOVE 100,(MAX 3 GRAMS PER 24 HOURS) 05/18/19 Acetaminophen* (Tylophen*) 500 Mg Capsule, 1000 MG PO TID PRN for PAIN, TAB 05/18/19 Nitroglycerin* (Nitrostat*) 0.4 Mg Tab.subl, 0.4 MG SL Q5MIN PRN for CHEST PAIN, BOTTLE 05/18/19 Albuterol Sulfate* (Albuterol Sulfate* Neb) 0.083%-3 Ml Neb, 2.5 MG NEB Q4H PRN for SHORTNESS OF BREATH, #30 VIAL 05/18/19 Calcium Carbonate* (Calcium Carbonate*) 600 MG Ca Tab, 500 MG PO QID PRN for GASTROINTESTINAL UPSET, TAB 05/18/19 Ascorbic Acid* (Vitamin C*) 500 Mg Capsule.sa, 500 MG PO DAILY, CAP 05/18/19 Multivitamins* (Theragran*) 1 Tab Tab, 1 TAB PO DAILY, TAB 05/18/19 Cran/Vitc/Mannose/Inulin/Brom (Uti-Stat Liquid) 3,875 Mg/30 Ml Liquid, 3875 MG PO DAILY 05/18/19 Cranberry Extract (Cranberry) 425 Mg Capsule, 425 MG PO DAILY, CAP 05/18/19 Thiamine* (Vitamin B-1*) 100 Mg Tablet, 100 MG PO DAILY, TAB 05/18/19 Fluticasone/Vilanterol (Breo Ellipta 200-25 Mcg INH) 1 Each Blst.w.dev, 1 PUFF INHALATION DAILY, #1 INHALER 05/18/19 Losartan Potassium* (Cozaar*) 25 Mg Tablet, 25 MG PO BID, #60 TAB 05/18/19 Hydrochlorothiazide* (Microzide*) 12.5 Mg Capsule, 12.5 MG PO DAILY, #30 CAP 05/18/19 Amlodipine Besylate* (Norvasc*) 5 Mg Tablet, 5 MG PO DAILY, TAB 05/18/19 Folic Acid* (Folic Acid*) 1 Mg Tablet, 1 MG PO DAILY, TAB 05/18/19 Budesonide-Formoterol Fumarate* (Symbicort*) 160-4.5 Hfa.aer.ad, 1 PUFF INH DAILY 05/10/19 Metoprolol Tartrate* (Lopressor*) 25 Mg Tablet, 1 TAB ORAL BID 05/10/19 Montelukast Sodium* (Montelukast Sodium*) 10 Mg Tablet, 1 TAB ORAL DAILY 05/10/19 Tiotropium [place]* (Spiriva*) 18 Mcg Cap.w.dev, 1 CAP INH DAILY 05/10/19 Medications Current Medications IV Flush (NS 3 ml) 3 ml PER PROTOCOL IV ; Start 05/18/19 at 02:00 Ondansetron HCl (Zofran Inj) 4 mg Q6H PRN IV NAUSEA/VOMITING; Start 05/18/19 at 02:00 IV Flush (NS 10 ml) 10 ml PRN PRN IV FLUSH LINE; Start 05/18/19 at 17:30 Ipratropium [place] (Atrovent Hfa) 4 puff Q6H RESP THERAPY INH Last administered on 06/04/19at 08:11; Admin Dose 4 PUFF; Start 05/21/19 at 20:00 Morphine Sulfate (morphine) 3 mg Q3H PRN IV SEVERE PAIN LEVEL 7-10 Last administered on 06/04/19at 03:13; Admin Dose 3 MG; Start 06/02/19 at 07:30 Midazolam HCl 50 ml @ 0.5 mls/hr TITRATE IV Last administered on 06/04/19at 11:23; Admin Dose 9 MLS/HR; Start 06/02/19 at 08:30 Assessment/Plan Assessment/Plan (Daily) IMP: 1. Hypoxemic/Hypercapnic Respiratory Failure--> failure to wean 2. COPD Exacerbation 3. WESTLEY--resolved 4. Encephalopathy 5. Dementia 6. DNR RECS: 1. Continue mechanical ventilation 2. CS taper 3. De-escalate abx 4. Would titrate sedation 5. Keep I<O's 6. Await for family to be present prior to terminal extubation/transition to comfort care . 35 min cc time TAMI LING MD Jun 04, 2019 11:59
[2019-06-05] VITALS (48 sets, daily range): BP systolic 104–139; BP diastolic 43–65; PULSE 78–80; RESP 12–35
[2019-06-05] MEDS: MIDAZOLAM (DRIP) 50 mg/50 mL 50 ML IV SCH ×4 (00:32→20:23)
[2019-06-05] MEDS: morphine 4 MG/ML VIAL IV PRN ×2 (00:35→05:24)
[2019-06-05] MEDS: IPRATROPIUM (HFA) 12.9 GM INHALER INH SCH ×5 (01:41→19:16)
--- NOTE | 2019-06-05 09:22 | CONS ---
Assessment/Plan Assessment/Plan Assessment/Plan (Daily) Ventilator setting; assist control of 12, tidal volume 500, PEEP of 5, 30% FiO2. Patient is currently on Versed at 9 mg/h. Assessment and recommendations; 1. Patient admitted with severe hypercapnic respiratory failure due to end- stage COPD. Has failed one self extubation attempt as well as multiple weaning trials. Patient has himself expressed not to have a tracheostomy performed. Continue current supportive care. Awaiting for family to arrive from out of state before terminal extubation. Prognosis is very poor. Consultation Date/Type/Reason Admit Date/Time May 18, 2019 at 00:50 Initial Consult Date 05/18/19 Type of Consult Pulmonary/critical care Patient is an 84-year-old gentleman who was sent over from shelter with altered mental status and severe hypoxemia. Upon evaluation patient was found to be in severe hypercapnic respiratory failure with pneumonia. Patient was intubated. By the time I saw him in ER, patient is orally intubated and is currently under paralytic and sedative effect. Patient however did not appear to be in any distress. History has been obtained from medical records. Past medical history; 1. Apparently advanced COPD. 2. Dementia. But the patient according to medical records is ambulatory and is usually awake and alert. Medications; reviewed. Allergies; none. Family history; not available. Social history; patient does have history of heavy smoking. Occupational history; not available. Review of system; not able to be obtained. General exam; elderly male, orally intubated, currently sedated. No distress noted. Requesting Provider: VIRGEN MCQUEEN Date/Time of Note DATE: 06/05/19 TIME: 09:20 24 HR Interval Summary Free Text/Dictation Patient's condition is critical. Patient however has remained hemodynamically stable. General exam; elderly male, orally intubated, sedated, currently in no distress. Exam/Review of Systems Exam Vitals Vital Signs Date Temp Pulse Resp B/P (MAP) Pulse Ox O2 O2 Flow FiO2 Time Delivery Rate 06/05/19 30 08:00 06/05/19 17 108/48 95 07:30 (68) 06/05/19 76 05:36 06/05/19 99.7 04:00 06/04/19 Mechanical 03:00 Ventilator Intake and Output 06/04/19 06/04/19 06/05/19 1515:00 23:00 07:00 IntakeIntake Total 513 ml 563 ml 563 ml OutputOutput Total 285 ml 320 ml 375 ml BalanceBalance 228 ml 243 ml 188 ml Exam H ENT exam; supple neck, JVD difficult to see because of ross. Patient is orally intubated. Patient is edentulous. No neck masses. Chest exam; diminished breath sounds throughout. S1-S2 audible, no murmurs. Regular rhythm. Abdomen exam; soft, nondistended. No organomegaly. Bowel sounds are audible. Extremity exam; no peripheral edema. FUNDRAISING ASSISTANT exam; patient is sedated. Results Result Diagram: 06/02/1939906/02/19 040 Medications Medication Current Medications IV Flush (NS 3 ml) 3 ml PER PROTOCOL IV ; Start 05/18/19 at 02:00 Ondansetron HCl (Zofran Inj) 4 mg Q6H PRN IV NAUSEA/VOMITING; Start 05/18/19 at 02:00 IV Flush (NS 10 ml) 10 ml PRN PRN IV FLUSH LINE; Start 05/18/19 at 17:30 Ipratropium [place] (Atrovent Hfa) 4 puff Q6H RESP THERAPY INH Last administered on 06/05/19 07:51; Admin Dose 4 PUFF; Start 05/21/19 at 20:00 Morphine Sulfate (morphine) 3 mg Q3H PRN IV SEVERE PAIN LEVEL 7-10 Last administered on 06/05/19 05:24; Admin Dose 3 MG; Start 06/02/19 at 07:30 Midazolam HCl 50 ml @ 0.5 mls/hr TITRATE IV Last administered on 06/05/19 07:14; Admin Dose 9 MLS/HR; Start 06/02/19 at 08:30 JUAN F AMTA Jun 05, 2019 09:22
--- NOTE | 2019-06-05 09:51 | PN ---
Date/Time of Note Date/Time of Note DATE: 06/05/19 TIME: 09:46 Assessment/Plan VTE Prophylaxis Risk score (from Ns)>0 risk: 14 SCD applied (from Ns): Yes Pharmacological prophylaxis: other Lines/Catheters IV Catheter Type (from Nrsg): PICC Line Central line still needed: Yes Urinary Cath still in place: Yes Reason Cath still needed: terminal illness/intractable pain Assessment/Plan Assessment/Plan 1. Acute hypoxic respiratory failure - Will continue vent support until niece is able to visit the patient. Will remain on comfort measures at this time 2. COPD exacerbation - Nebs 3. Acute toxic encephalopathy- stable - remains on Versed 4. Acute kidney injury- resolved - no longer monitoring labs per nieces request 5. Hypertension - stable 6. Mild cognitive impairment 7. Mild carotid stenosis, right ICA 8. Arrhythmia 9. Disposition - Will continue mechanical ventilation while awaiting niece's arrival. Continue comfort measures at this time >30 minutes of critical care time spend with patient Result Diagram: 06/02/19 0400 06/02/19 0400 Subjective 24 Hr Interval Summary Free Text/Dictation Patient remains stable on comfort measures and no acute overnight events. Remains intubated and currently sedated on Versed. Exam/Review of Systems Exam Vitals Vital Signs Date Temp Pulse Resp B/P (MAP) Pulse Ox O2 O2 Flow FiO2 Time Delivery Rate 06/05/19 16 104/49 94 09:00 (67) 06/05/19 30 08:00 06/05/19 99.1 08:00 06/05/19 76 05:36 06/04/19 Mechanical 03:00 Ventilator Intake and Output 06/04/19 06/04/19 06/05/19 1515:00 23:00 07:00 IntakeIntake Total 513 ml 563 ml 563 ml OutputOutput Total 285 ml 320 ml 375 ml BalanceBalance 228 ml 243 ml 188 ml Exam General: Patient is laying in bed intubated and sedated. no acute distress noted Head: Normocephalic atraumatic Eyes: EOMI, pupils reactive to light Neck: Supple, nontender, midline Respiratory: Coarse to auscultation bilaterally. no wheezing appreciated Cardiovascular: S1, S2, regular rate and rhythm, no obvious murmurs Gastrointestinal: soft, non-tender to palpation, nondistended, bowel sounds heard. Skin: No new skin lesions Medications Medication Current Medications IV Flush (NS 3 ml) 3 ml PER PROTOCOL IV ; Start 05/18/19 at 02:00 Ondansetron HCl (Zofran Inj) 4 mg Q6H PRN IV NAUSEA/VOMITING; Start 05/18/19 at 02:00 IV Flush (NS 10 ml) 10 ml PRN PRN IV FLUSH LINE; Start 05/18/19 at 17:30 Ipratropium [place] (Atrovent Hfa) 4 puff Q6H RESP THERAPY INH Last administered on 06/05/19 07:51; Admin Dose 4 PUFF; Start 05/21/19 at 20:00 Morphine Sulfate (morphine) 3 mg Q3H PRN IV SEVERE PAIN LEVEL 7-10 Last administered on 06/05/19 05:24; Admin Dose 3 MG; Start 06/02/19 at 07:30 Midazolam HCl 50 ml @ 0.5 mls/hr TITRATE IV Last administered on 06/05/19 07:14; Admin Dose 9 MLS/HR; Start 06/02/19 at 08:30 SOFIA AYOUB MD Jun 05, 2019 09:51
--- NOTE | 2019-06-05 11:12 | CONS ---
Assessment/Plan Assessment/Plan Assessment/Plan (Daily) 1. acute hyperrkalemia - resolved 2. Acute kidney injury due to ATN from septic shock + prerenal azotemia - improved 3. acute hypercapnic respiratory failure 2/2 Septic shock and PNA,, intubated on ventilator 4. H/o HTN 5. h/o HL 6. Septic shock due to bilateral PNA 7. Hypotension and Bradycardia - now stable 8. Anemia- Hgb 11.7- stable Plan: DNR code status awaiting family to decide on comfort will sign off, call us if any questions will follow up Consultation Date/Type/Reason Admit Date/Time May 18, 2019 at 00:50 Initial Consult Date 05/18/19 Type of Consult NEPHROLOGY Requesting Provider: VIRGEN MCQUEEN Date/Time of Note DATE: 06/05/19 TIME: 11:12 Exam/Review of Systems Exam Vitals Vital Signs Date Temp Pulse Resp B/P (MAP) Pulse Ox O2 O2 Flow FiO2 Time Delivery Rate 06/05/19 17 106/47 94 10:00 (66) 06/05/19 30 08:00 06/05/19 99.1 08:00 06/05/19 76 05:36 06/04/19 Mechanical 03:00 Ventilator Intake and Output 06/04/19 06/04/19 06/05/19 1515:00 23:00 07:00 IntakeIntake Total 513 ml 563 ml 563 ml OutputOutput Total 285 ml 320 ml 375 ml BalanceBalance 228 ml 243 ml 188 ml Results Result Diagram: 06/02/19 0400 06/02/19 0400 Medications Medication Current Medications IV Flush (NS 3 ml) 3 ml PER PROTOCOL IV ; Start 05/18/19 at 02:00 Ondansetron HCl (Zofran Inj) 4 mg Q6H PRN IV NAUSEA/VOMITING; Start 05/18/19 at 02:00 IV Flush (NS 10 ml) 10 ml PRN PRN IV FLUSH LINE; Start 05/18/19 at 17:30 Ipratropium [place] (Atrovent Hfa) 4 puff Q6H RESP THERAPY INH Last administered on 06/05/19at 07:51; Admin Dose 4 PUFF; Start 05/21/19 at 20:00 Morphine Sulfate (morphine) 3 mg Q3H PRN IV SEVERE PAIN LEVEL 7-10 Last administered on 06/05/19at 05:24; Admin Dose 3 MG; Start 06/02/19 at 07:30 Midazolam HCl 50 ml @ 0.5 mls/hr TITRATE IV Last administered on 06/05/19at 07:14; Admin Dose 9 MLS/HR; Start 06/02/19 at 08:30 EDGARD CLARKE MD Jun 05, 2019 11:12
--- NOTE | 2019-06-05 19:22 | CONS ---
Assessment/Plan Assessment/Plan Hospital Course (Demo Recall) Respiratory failure, status post intubation History of hypertension with labile blood pressure currently Encephalopathy Preserved left ventricular ejection fraction COPD Acute kidney injury In discussion with nursing staff, it appears patient family planning on comfort measures Vent management as per pulmonary Consultation Date/Type/Reason Admit Date/Time May 18, 2019 at 00:50 Initial Consult Date 05/18/19 Type of Consult Cardiology Requesting Provider: VIRGEN MCQUEEN Date/Time of Note DATE: 06/05/19 TIME: 19:21 24 HR Interval Summary Free Text/Dictation intubated and sedated Exam/Review of Systems Vital Signs Vitals Vital Signs Date Temp Pulse Resp B/P (MAP) Pulse Ox O2 O2 Flow FiO2 Time Delivery Rate 06/05/19 75 12 99 30 19:18 06/05/19 130/65 18:30 (86) 06/05/19 98.5 16:00 06/04/19 Mechanical 03:00 Ventilator Intake and Output 06/04/19 06/04/19 06/05/19 1414:59 22:59 06:59 IntakeIntake Total 513 ml 563 ml 572 ml OutputOutput Total 285 ml 290 ml 400 ml BalanceBalance 228 ml 273 ml 172 ml Exam Exam intubated and sedated Head: normocephalic ENMT: intubated Respiratory: other (course bs, no wheeze) Cardiovascular: regular rate and rhythm (s1s2) Gastrointestinal: soft, non-tender, bowel sounds Extremities: edema (tr) Labs Result Diagram: 06/02/19 0400 06/02/19 0400 Medications Medications Current Medications IV Flush (NS 3 ml) 3 ml PER PROTOCOL IV ; Start 05/18/19 at 02:00 Ondansetron HCl (Zofran Inj) 4 mg Q6H PRN IV NAUSEA/VOMITING; Start 05/18/19 at 02:00 IV Flush (NS 10 ml) 10 ml PRN PRN IV FLUSH LINE; Start 05/18/19 at 17:30 Ipratropium [place] (Atrovent Hfa) 4 puff Q6H RESP THERAPY INH Last administered on 06/05/19at 19:16; Admin Dose 4 PUFF; Start 05/21/19 at 20:00 Morphine Sulfate (morphine) 3 mg Q3H PRN IV SEVERE PAIN LEVEL 7-10 Last administered on 06/05/19at 05:24; Admin Dose 3 MG; Start 06/02/19 at 07:30 Midazolam HCl 50 ml @ 0.5 mls/hr TITRATE IV Last administered on 06/05/19at 13:18; Admin Dose 9 MLS/HR; Start 06/02/19 at 08:30 Bao Garza DO Jun 05, 2019 19:22
[2019-06-05] MEDS ORDERED: POTASSIUM CHLORIDE 100 ML IVPB SCH (22:00)
[2019-06-06] VITALS (36 sets, daily range): BP systolic 94–140; BP diastolic 42–65; RESP 12–74
[2019-06-06] MEDS: IPRATROPIUM (HFA) 12.9 GM INHALER INH SCH ×4 (01:46→19:28)
[2019-06-06] MEDS: MIDAZOLAM (DRIP) 50 mg/50 mL 50 ML IV SCH ×3 (05:49→15:28)
--- NOTE | 2019-06-06 06:27 | CONS ---
Consultation Date/Type/Reason Admit Date/Time May 18, 2019 at 00:50 Date/Time of Note DATE: 06/06/19 TIME: 06:27 Hx of Present Illness Since I last saw patient there is been no escalation of care patient is on comfort measures as per request of family members. They are to arrive from the [facility] tomorrow June 07, 2019 to be with patient during compassionate extubation. Other medical problems include hypoxic respiratory failure, chronic obstructive pulmonary disease past medical history of smoking, acute kidney injury, mild to moderate cognitive deficit prior to hospitalization, failure to thrive. Patient's quality of life was poor prior to hospitalization and my discussion with family members last week was to just keep him comfortable until they arrive. I have asked to have all labs x-rays studies of any kind discontinue. Past Medical History Medical History: hypertension, other (Asthma, h/o CVA ) Home Meds Active Scripts Atorvastatin Calcium (Atorvastatin Calcium) 20 Mg Tablet, 20 MG PO HS for 30 Days, TAB Prov:VIRGEN MCQUEEN 05/16/19 Reported Medications Mineral Oil* (Fleet* Mineral Oil Enema) 133 Ml Oil, 133 ML GA Q48H PRN for CONSTIPATION, ENEMA 05/18/19 Bisacodyl* (Dulcolax*) 5 Mg Tablet.dr, 10 MG PO DAILY PRN for CONSTIPATION, TAB 05/18/19 Magnesium Hydroxide* (Milk Of Magnesia*) 400 Mg/5 Ml Oral.susp, 30 ML PO QHS PRN for CONSTIPATION, ML 05/18/19 Docusate Sodium* (Colace*) 100 Mg Capsule, 200 MG PO QHS, #30 CAP 05/18/19 Acetaminophen* (Acetaminophen*) 500 MG Extra Strength Tablet, 1000 MG PO Q6H PRN for MILD PAIN(1-3)OR ELEVATED TEMP, TAB 05/18/19 Acetaminophen* (Tylenol*) 325 Mg Tablet, 650 MG PO Q4H PRN for MILD PAIN LEVEL 1-3, TAB MILD PAIN, LOJA SCALE 1/10 - 3/10, OR FEVER ABOVE 100,(MAX 3 GRAMS PER 24 HOURS) 05/18/19 Acetaminophen* (Tylophen*) 500 Mg Capsule, 1000 MG PO TID PRN for PAIN, TAB 05/18/19 Nitroglycerin* (Nitrostat*) 0.4 Mg Tab.subl, 0.4 MG SL Q5MIN PRN for CHEST PAIN, BOTTLE 05/18/19 Albuterol Sulfate* (Albuterol Sulfate* Neb) 0.083%-3 Ml Neb, 2.5 MG NEB Q4H PRN for SHORTNESS OF BREATH, #30 VIAL 05/18/19 Calcium Carbonate* (Calcium Carbonate*) 600 MG Ca Tab, 500 MG PO QID PRN for GASTROINTESTINAL UPSET, TAB 05/18/19 Ascorbic Acid* (Vitamin C*) 500 Mg Capsule.sa, 500 MG PO DAILY, CAP 05/18/19 Multivitamins* (Theragran*) 1 Tab Tab, 1 TAB PO DAILY, TAB 05/18/19 Cran/Vitc/Mannose/Inulin/Brom (Uti-Stat Liquid) 3,875 Mg/30 Ml Liquid, 3875 MG PO DAILY 05/18/19 Cranberry Extract (Cranberry) 425 Mg Capsule, 425 MG PO DAILY, CAP 05/18/19 Thiamine* (Vitamin B-1*) 100 Mg Tablet, 100 MG PO DAILY, TAB 05/18/19 Fluticasone/Vilanterol (Breo Ellipta 200-25 Mcg INH) 1 Each Blst.w.dev, 1 PUFF INHALATION DAILY, #1 INHALER 05/18/19 Losartan Potassium* (Cozaar*) 25 Mg Tablet, 25 MG PO BID, #60 TAB 05/18/19 Hydrochlorothiazide* (Microzide*) 12.5 Mg Capsule, 12.5 MG PO DAILY, #30 CAP 05/18/19 Amlodipine Besylate* (Norvasc*) 5 Mg Tablet, 5 MG PO DAILY, TAB 05/18/19 Folic Acid* (Folic Acid*) 1 Mg Tablet, 1 MG PO DAILY, TAB 05/18/19 Budesonide-Formoterol Fumarate* (Symbicort*) 160-4.5 Hfa.aer.ad, 1 PUFF INH DAILY 05/10/19 Metoprolol Tartrate* (Lopressor*) 25 Mg Tablet, 1 TAB ORAL BID 05/10/19 Montelukast Sodium* (Montelukast Sodium*) 10 Mg Tablet, 1 TAB ORAL DAILY 05/10/19 Tiotropium [place]* (Spiriva*) 18 Mcg Cap.w.dev, 1 CAP INH DAILY 05/10/19 Medications Current Medications IV Flush (NS 3 ml) 3 ml PER PROTOCOL IV ; Start 05/18/19 at 02:00 Ondansetron HCl (Zofran Inj) 4 mg Q6H PRN IV NAUSEA/VOMITING; Start 05/18/19 at 02:00 IV Flush (NS 10 ml) 10 ml PRN PRN IV FLUSH LINE; Start 05/18/19 at 17:30 Ipratropium [place] (Atrovent Hfa) 4 puff Q6H RESP THERAPY INH Last administered on 06/06/19at 01:46; Admin Dose 4 PUFF; Start 05/21/19 at 20:00 Morphine Sulfate (morphine) 3 mg Q3H PRN IV SEVERE PAIN LEVEL 7-10 Last administered on 06/05/19at 05:24; Admin Dose 3 MG; Start 06/02/19 at 07:30 Midazolam HCl 50 ml @ 0.5 mls/hr TITRATE IV Last administered on 06/06/19at 05:49; Admin Dose 8 MLS/HR; Start 06/02/19 at 08:30 Allergies: Coded Allergies: No Known Allergy (Unverified , 05/10/19) Past Surgical History Past Surgical Hx: noncontributory Social History Alcohol Use: none Smoking Status: Current every day smoker Drug Use: none Exam/Review of Systems Exam Vitals Vital Signs Date Temp Pulse Resp B/P (MAP) Pulse Ox O2 O2 Flow FiO2 Time Delivery Rate 06/06/19 13 120/56 97 Mechanical 06:00 (77) Ventilator 06/06/19 77 30 05:57 06/06/19 99.0 04:00 Intake and Output 06/05/19 06/05/19 06/06/19 1515:00 23:00 07:00 IntakeIntake Total 522 ml 419.5 ml 506 ml OutputOutput Total 395 ml 345 ml 280 ml BalanceBalance 127 ml 74.5 ml 226 ml Results Result Diagram: 06/02/19 0400 06/02/19 0400 Medications Medication Current Medications IV Flush (NS 3 ml) 3 ml PER PROTOCOL IV ; Start 05/18/19 at 02:00 Ondansetron HCl (Zofran Inj) 4 mg Q6H PRN IV NAUSEA/VOMITING; Start 05/18/19 at 02:00 IV Flush (NS 10 ml) 10 ml PRN PRN IV FLUSH LINE; Start 05/18/19 at 17:30 Ipratropium [place] (Atrovent Hfa) 4 puff Q6H RESP THERAPY INH Last admini stered on 06/06/19at 01:46; Admin Dose 4 PUFF; Start 05/21/19 at 20:00 Morphine Sulfate (morphine) 3 mg Q3H PRN IV SEVERE PAIN LEVEL 7-10 Last administered on 06/05/19 05:24; Admin Dose 3 MG; Start 06/02/19 at 07:30 Midazolam HCl 50 ml @ 0.5 mls/hr TITRATE IV Last administered on 06/06/19 05:49; Admin Dose 8 MLS/HR; Start 06/02/19 at 08:30 KENNETH MÉNDEZ Jun 06, 2019 06:27
[2019-06-06] MEDS ORDERED: morphine 4 MG/ML VIAL IV PRN (07:30)
--- NOTE | 2019-06-06 09:25 | CONS ---
Assessment/Plan Assessment/Plan Assessment/Plan (Daily) Ventilator setting; AC of 12, tidal volume 500, PEEP of 5, 30% FiO2. Patient is currently on Versed 8 mg/h. Assessment and recommendations; 1. Patient with history of end-stage COPD admitted for severe hypercapnic respiratory failure which has been refractory despite very aggressive treatment. 2. Patient failed one self extubation attempt as well as multiple weaning trials. 3. Patient has expressed not to have a tracheostomy performed. Continue current supportive care. Awaiting for family member to arrive from out of state tomorrow for terminal extubation. Prognosis is extremely poor. Consultation Date/Type/Reason Admit Date/Time May 18, 2019 at 00:50 Initial Consult Date 05/18/19 Type of Consult Pulmonary/critical care Patient is an 84-year-old gentleman who was sent over from assisted with altered mental status and severe hypoxemia. Upon evaluation patient was found to be in severe hypercapnic respiratory failure with pneumonia. Patient was intubated. By the time I saw him in ER, patient is orally intubated and is currently under paralytic and sedative effect. Patient however did not appear to be in any distress. History has been obtained from medical records. Past medical history; 1. Apparently advanced COPD. 2. Dementia. But the patient according to medical records is ambulatory and is usually awake and alert. Medications; reviewed. Allergies; none. Family history; not available. Social history; patient does have history of heavy smoking. Occupational history; not available. Review of system; not able to be obtained. General exam; elderly male, orally intubated, currently sedated. No distress noted. Requesting Provider: VIRGEN MCQUEEN Date/Time of Note DATE: 06/06/19 TIME: 09:23 24 HR Interval Summary Free Text/Dictation Patient's condition is critical. Patient however has remained hemodynamically stable. General exam; elderly male, orally intubated, sedated, currently no distress. Exam/Review of Systems Exam Vitals Vital Signs Date Temp Pulse Resp B/P (MAP) Pulse Ox O2 O2 Flow FiO2 Time Delivery Rate 06/06/19 13 120/56 97 Mechanical 06:00 (77) Ventilator 06/06/19 77 30 05:57 06/06/19 99.0 04:00 Intake and Output 06/05/19 06/05/19 06/06/19 1515:00 23:00 07:00 IntakeIntake Total 522 ml 419.5 ml 506 ml OutputOutput Total 395 ml 345 ml 280 ml BalanceBalance 127 ml 74.5 ml 226 ml Exam H ENT exam; supple neck, no lymphadenopathy. Patient is edentulous. Orally intubated. 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 Nipples are small bilaterally. No neck masses. Orogastric tube in place. Chest exam; diminished breath sounds bilaterally. S1-S2 audible, no murmurs. Regular rhythm. Abdomen exam; soft, no organomegaly. Nondistended. Bowel sounds are audible. Extremity exam; no peripheral edema clubbing. GLOVE CUFFER exam; patient is sedated. Results Result Diagram: 06/02/1939906/02/19399 Medications Medication Current Medications IV Flush (NS 3 ml) 3 ml PER PROTOCOL IV ; Start 05/18/19 at 02:00 Ondansetron HCl (Zofran Inj) 4 mg Q6H PRN IV NAUSEA/VOMITING; Start 05/18/19 at 02:00 IV Flush (NS 10 ml) 10 ml PRN PRN IV FLUSH LINE; Start 05/18/19 at 17:30 Ipratropium [place] (Atrovent Hfa) 4 puff Q6H RESP THERAPY INH Last administered on 06/06/19at 07:55; Admin Dose 4 PUFF; Start 05/21/19 at 20:00 Midazolam HCl 50 ml @ 0.5 mls/hr TITRATE IV Last administered on 06/06/19at 08:34; Admin Dose 8 MLS/HR; Start 06/02/19 at 08:30 Morphine Sulfate (morphine) 4 mg Q3H PRN IV SEVERE PAIN LEVEL 7-10; Start 06/06/19 at 07:30 JUAN F MATA Jun 06, 2019 09:25
--- NOTE | 2019-06-06 15:49 | CONS ---
Assessment/Plan Assessment/Plan Hospital Course (Demo Recall) Respiratory failure, status post intubation History of hypertension with labile blood pressure currently Encephalopathy Preserved left ventricular ejection fraction COPD Acute kidney injury Patient currently on comfort measures only Vent management as per pulmonary No new cardiac orders at the current time Consultation Date/Type/Reason Admit Date/Time May 18, 2019 at 00:50 Initial Consult Date 05/18/19 Type of Consult Cardiology Requesting Provider: VIRGEN MCQUEEN Date/Time of Note DATE: 06/06/19 TIME: 15:48 24 HR Interval Summary Free Text/Dictation Sedated and intubated Exam/Review of Systems Vital Signs Vitals Vital Signs Date Temp Pulse Resp B/P (MAP) Pulse Ox O2 O2 Flow FiO2 Time Delivery Rate 06/06/19 25 94/42 (59) 95 Mechanical 13:00 Ventilator 06/06/19 98.9 12:00 06/06/19 68 30 11:30 Intake and Output 06/05/19 06/05/19 06/06/19 1515:00 23:00 07:00 IntakeIntake Total 522 ml 419.5 ml 564 ml OutputOutput Total 395 ml 345 ml 380 ml BalanceBalance 127 ml 74.5 ml 184 ml Exam Exam Sedated and intubated, no apparent distress Head: normocephalic ENMT: intubated Respiratory: other (Coarse breath sounds bilaterally, no wheezing) Cardiovascular: regular rate and rhythm (S1-S2 heard) Gastrointestinal: soft, non-tender, bowel sounds Extremities: edema Labs Result Diagram: 06/02/19 0400 06/02/19 0400 Medications Medications Current Medications IV Flush (NS 3 ml) 3 ml PER PROTOCOL IV ; Start 05/18/19 at 02:00 Ondansetron HCl (Zofran Inj) 4 mg Q6H PRN IV NAUSEA/VOMITING; Start 05/18/19 at 02:00 IV Flush (NS 10 ml) 10 ml PRN PRN IV FLUSH LINE; Start 05/18/19 at 17:30 Ipratropium [place] (Atrovent Hfa) 4 puff Q6H RESP THERAPY INH Last administered on 06/06/19at 14:09; Admin Dose 4 PUFF; Start 05/21/19 at 20:00 Midazolam HCl 50 ml @ 0.5 mls/hr TITRATE IV Last administered on 06/06/19at 15:28; Admin Dose 8 MLS/HR; Start 06/02/19 at 08:30 Morphine Sulfate (morphine) 4 mg Q3H PRN IV SEVERE PAIN LEVEL 7-10; Start 06/06/19 at 07:30 Bao Garza DO Jun 06, 2019 15:49
--- NOTE | 2019-06-06 15:51 | PN ---
Date/Time of Note Date/Time of Note DATE: 06/06/19 TIME: 15:50 Assessment/Plan VTE Prophylaxis Risk score (from Ns)>0 risk: 10 SCD applied (from Ns): Yes Pharmacological prophylaxis: other Lines/Catheters IV Catheter Type (from Nrsg): PICC Line Central line still needed: Yes Urinary Cath still in place: Yes Reason Cath still needed: terminal illness/intractable pain Assessment/Plan Assessment/Plan 1. Acute hypoxic respiratory failure- stable - Will continue vent support until niece is able to visit the patient. Will remain on comfort measures at this time 2. COPD exacerbation - Nebs 3. Acute toxic encephalopathy- stable - remains on Versed 4. Acute kidney injury- resolved - no longer monitoring labs per nieces request 5. Hypertension - stable 6. Mild cognitive impairment 7. Mild carotid stenosis, right ICA 8. Arrhythmia 9. Disposition - Will continue mechanical ventilation while awaiting niece's arrival. Continue comfort measures at this time Result Diagram: 06/02/19 0400 06/02/19 0400 Subjective 24 Hr Interval Summary Free Text/Dictation Patient remains stable on mechanical ventilation. no acute overnight changes. Exam/Review of Systems Exam Vitals Vital Signs Date Temp Pulse Resp B/P (MAP) Pulse Ox O2 O2 Flow FiO2 Time Delivery Rate 06/06/19 25 94/42 (59) 95 Mechanical 13:00 Ventilator 06/06/19 98.9 12:00 06/06/19 68 30 11:30 Intake and Output 06/05/19 06/05/19 06/06/19 1515:00 23:00 07:00 IntakeIntake Total 522 ml 419.5 ml 564 ml OutputOutput Total 395 ml 345 ml 380 ml BalanceBalance 127 ml 74.5 ml 184 ml Exam General: Patient is laying in bed intubated and sedated. no acute distress noted Eyes: EOMI, pupils reactive to light Neck: Supple, nontender, midline Respiratory: Coarse to auscultation bilaterally. no wheezing appreciated Cardiovascular: S1, S2, regular rate and rhythm, no obvious murmurs Gastrointestinal: soft, non-tender to palpation, nondistended, bowel sounds heard. Skin: No new skin lesions Medications Medication Current Medications IV Flush (NS 3 ml) 3 ml PER PROTOCOL IV ; Start 05/18/19 at 02:00 Ondansetron HCl (Zofran Inj) 4 mg Q6H PRN IV NAUSEA/VOMITING; Start 05/18/19 at 02:00 IV Flush (NS 10 ml) 10 ml PRN PRN IV FLUSH LINE; Start 05/18/19 at 17:30 Ipratropium [place] (Atrovent Hfa) 4 puff Q6H RESP THERAPY INH Last administered on 06/06/19at 14:09; Admin Dose 4 PUFF; Start 05/21/19 at 20:00 Midazolam HCl 50 ml @ 0.5 mls/hr TITRATE IV Last administered on 06/06/19at 15:28; Admin Dose 8 MLS/HR; Start 06/02/19 at 08:30 Morphine Sulfate (morphine) 4 mg Q3H PRN IV SEVERE PAIN LEVEL 7-10; Start 06/06/19 at 07:30 SOFIA AYOUB MD Jun 06, 2019 15:51
[2019-06-07] VITALS (29 sets, daily range): BP systolic 94–188; BP diastolic 46–83; RESP 12–45
[2019-06-07] MEDS: MIDAZOLAM (DRIP) 50 mg/50 mL 50 ML IV SCH ×3 (00:01→13:38)
[2019-06-07] MEDS: IPRATROPIUM (HFA) 12.9 GM INHALER INH SCH ×3 (01:40→14:32)
--- NOTE | 2019-06-07 07:49 | CONS ---
Assessment/Plan Assessment/Plan Assessment/Plan (Daily) Discussed plan of care with patient's critical care nurse she has been contact with family members. They are to arrive today and unless plans have significant change her family have changed her mind we will proceed with comfort measures and terminal extubation today. Consultation Date/Type/Reason Admit Date/Time May 18, 2019 at 00:50 Date/Time of Note DATE: 06/07/19 TIME: 07:49 Past Medical History Medical History: hypertension, other (Asthma, h/o CVA ) Home Meds Active Scripts Atorvastatin Calcium (Atorvastatin Calcium) 20 Mg Tablet, 20 MG PO HS for 30 Days, TAB Prov:VIRGEN MCQUEEN 05/16/19 Reported Medications Mineral Oil* (Fleet* Mineral Oil Enema) 133 Ml Oil, 133 ML [place] Q48H PRN for CONSTIPATION, ENEMA 05/18/19 Bisacodyl* (Dulcolax*) 5 Mg Tablet.dr, 10 MG PO DAILY PRN for CONSTIPATION, TAB 05/18/19 Magnesium Hydroxide* (Milk Of Magnesia*) 400 Mg/5 Ml Oral.susp, 30 ML PO QHS PRN for CONSTIPATION, ML 05/18/19 Docusate Sodium* (Colace*) 100 Mg Capsule, 200 MG PO QHS, #30 CAP 05/18/19 Acetaminophen* (Acetaminophen*) 500 MG Extra Strength Tablet, 1000 MG PO Q6H PRN for MILD PAIN(1-3)OR ELEVATED TEMP, TAB 05/18/19 Acetaminophen* (Tylenol*) 325 Mg Tablet, 650 MG PO Q4H PRN for MILD PAIN LEVEL 1-3, TAB MILD PAIN, LOJA SCALE 1/10 - 3/10, OR FEVER ABOVE 100,(MAX 3 GRAMS PER 24 HOURS) 05/18/19 Acetaminophen* (Tylophen*) 500 Mg Capsule, 1000 MG PO TID PRN for PAIN, TAB 05/18/19 Nitroglycerin* (Nitrostat*) 0.4 Mg Tab.subl, 0.4 MG SL Q5MIN PRN for CHEST PAIN, BOTTLE 05/18/19 Albuterol Sulfate* (Albuterol Sulfate* Neb) 0.083%-3 Ml Neb, 2.5 MG NEB Q4H PRN for SHORTNESS OF BREATH, #30 VIAL 05/18/19 Calcium Carbonate* (Calcium Carbonate*) 600 MG Ca Tab, 500 MG PO QID PRN for GASTROINTESTINAL UPSET, TAB 05/18/19 Ascorbic Acid* (Vitamin C*) 500 Mg Capsule.sa, 500 MG PO DAILY, CAP 05/18/19 Multivitamins* (Theragran*) 1 Tab Tab, 1 TAB PO DAILY, TAB 05/18/19 Cran/Vitc/Mannose/Inulin/Brom (Uti-Stat Liquid) 3,875 Mg/30 Ml Liquid, 3875 MG PO DAILY 05/18/19 Cranberry Extract (Cranberry) 425 Mg Capsule, 425 MG PO DAILY, CAP 05/18/19 Thiamine* (Vitamin B-1*) 100 Mg Tablet, 100 MG PO DAILY, TAB 05/18/19 Fluticasone/Vilanterol (Breo Ellipta 200-25 Mcg INH) 1 Each Blst.w.dev, 1 PUFF INHALATION DAILY, #1 INHALER 05/18/19 Losartan Potassium* (Cozaar*) 25 Mg Tablet, 25 MG PO BID, #60 TAB 05/18/19 Hydrochlorothiazide* (Microzide*) 12.5 Mg Capsule, 12.5 MG PO DAILY, #30 CAP 05/18/19 Amlodipine Besylate* (Norvasc*) 5 Mg Tablet, 5 MG PO DAILY, TAB 05/18/19 Folic Acid* (Folic Acid*) 1 Mg Tablet, 1 MG PO DAILY, TAB 05/18/19 Budesonide-Formoterol Fumarate* (Symbicort*) 160-4.5 Hfa.aer.ad, 1 PUFF INH DAILY 05/10/19 Metoprolol Tartrate* (Lopressor*) 25 Mg Tablet, 1 TAB ORAL BID 05/10/19 Montelukast Sodium* (Montelukast Sodium*) 10 Mg Tablet, 1 TAB ORAL DAILY 05/10/19 Tiotropium [place]* (Spiriva*) 18 Mcg Cap.w.dev, 1 CAP INH DAILY 05/10/19 Medications Current Medications IV Flush (NS 3 ml) 3 ml PER PROTOCOL IV ; Start 05/18/19 at 02:00 Ondansetron HCl (Zofran Inj) 4 mg Q6H PRN IV NAUSEA/VOMITING; Start 05/18/19 at 02:00 IV Flush (NS 10 ml) 10 ml PRN PRN IV FLUSH LINE; Start 05/18/19 at 17:30 Ipratropium [place] (Atrovent Hfa) 4 puff Q6H RESP THERAPY INH Last administered on 06/07/19at 01:40; Admin Dose 4 PUFF; Start 05/21/19 at 20:00 Midazolam HCl 50 ml @ 0.5 mls/hr TITRATE IV Last administered on 06/07/19 06:26; Admin Dose 8 MLS/HR; Start 06/02/19 at 08:30 Morphine Sulfate (morphine) 4 mg Q3H PRN IV SEVERE PAIN LEVEL 7-10; Start 06/06/19 at 07:30 Allergies: Coded Allergies: No Known Allergy (Unverified , 05/10/19) Past Surgical History Past Surgical Hx: noncontributory Social History Alcohol Use: none Smoking Status: Current every day smoker Drug Use: none Exam/Review of Systems Exam Vitals Vital Signs Date Temp Pulse Resp B/P (MAP) Pulse Ox O2 O2 Flow FiO2 Time Delivery Rate 06/07/19 14 127/62 97 Mechanical 06:00 (83) Ventilator 06/07/19 83 30 05:26 06/07/19 98.6 04:00 Intake and Output 06/06/19 06/06/19 06/07/19 1515:00 23:00 07:00 IntakeIntake Total 514 ml 514 ml 506 ml OutputOutput Total 400 ml 355 ml 400 ml BalanceBalance 114 ml 159 ml 106 ml Medications Medication Current Medications IV Flush (NS 3 ml) 3 ml PER PROTOCOL IV ; Start 05/18/19 at 02:00 Ondansetron HCl (Zofran Inj) 4 mg Q6H PRN IV NAUSEA/VOMITING; Start 05/18/19 at 02:00 IV Flush (NS 10 ml) 10 ml PRN PRN IV FLUSH LINE; Start 05/18/19 at 17:30 Ipratropium [place] (Atrovent Hfa) 4 puff Q6H RESP THERAPY INH Last administer ed on 06/07/19at 01:40; Admin Dose 4 PUFF; Start 05/21/19 at 20:00 Midazolam HCl 50 ml @ 0.5 mls/hr TITRATE IV Last administered on 06/07/19 06:26; Admin Dose 8 MLS/HR; Start 06/02/19 at 08:30 Morphine Sulfate (morphine) 4 mg Q3H PRN IV SEVERE PAIN LEVEL 7-10; Start 06/06/19 at 07:30 KENNETH MÉNDEZ Jun 07, 2019 07:49
--- NOTE | 2019-06-07 09:27 | CONS ---
Assessment/Plan Assessment/Plan Assessment/Plan (Daily) Ventilator setting; assist control of 12, tidal volume 500, PEEP of 5, 30% FiO2. Patient is currently on Versed at 8 mg/h. Assessment and recommendations; 1. Patient admitted with severe hypercapnic respiratory failure due to end- stage COPD. Failed one self extubation attempt as well as multiple weaning trials from ventilator. Continue current supportive care. Continue comfort measures. Awaiting for xiomara weston's niece to arrive [place] either today or tomorrow and patient likely will be extubated and provided palliative care. Consultation Date/Type/Reason Admit Date/Time May 18, 2019 at 00:50 Initial Consult Date 05/18/19 Type of Consult Pulmonary/critical care Patient is an 84-year-old gentleman who was sent over from retirement with altered mental status and severe hypoxemia. Upon evaluation patient was found to be in severe hypercapnic respiratory failure with pneumonia. Patient was intubated. By the time I saw him in ER, patient is orally intubated and is currently under paralytic and sedative effect. Patient however did not appear to be in any distress. History has been obtained from medical records. Past medical history; 1. Apparently advanced COPD. 2. Dementia. But the patient according to medical records is ambulatory and is usually awake and alert. Medications; reviewed. Allergies; none. Family history; not available. Social history; patient does have history of heavy smoking. Occupational history; not available. Review of system; not able to be obtained. General exam; elderly male, orally intubated, currently sedated. No distress noted. Requesting Provider: VIRGEN MCQUEEN Date/Time of Note DATE: 06/07/19 TIME: 09:25 24 HR Interval Summary Free Text/Dictation Patient's condition is clinically stable. Has remained hemodynamically stable. General exam; elderly male, orally intubated, sedated, currently in no distress. Exam/Review of Systems Exam Vitals Vital Signs Date Temp Pulse Resp B/P (MAP) Pulse Ox O2 O2 Flow FiO2 Time Delivery Rate 06/07/19 30 08:00 06/07/19 14 127/62 97 Mechanical 06:00 (83) Ventilator 06/07/19 83 05:26 06/07/19 98.6 04:00 Intake and Output 06/06/19 06/06/19 06/07/19 1515:00 23:00 07:00 IntakeIntake Total 514 ml 514 ml 506 ml OutputOutput Total 400 ml 355 ml 400 ml BalanceBalance 114 ml 159 ml 106 ml Exam H ENT exam; supple neck, patient is edentulous. Orally intubated. No neck masses. 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 Pupils are small bilaterally. Nasogastric tube in place. Chest exam; diminished breath sounds throughout. S1-S2 audible, no murmurs. Regular rhythm. Abdomen exam; soft, nondistended. No organomegaly. Bowel sounds are audible. Extremity exam; no peripheral edema. [employer] exam; patient is sedated. Medications Medication Current Medications IV Flush (NS 3 ml) 3 ml PER PROTOCOL IV ; Start 05/18/19 at 02:00 Ondansetron HCl (Zofran Inj) 4 mg Q6H PRN IV NAUSEA/VOMITING; Start 05/18/19 at 02:00 IV Flush (NS 10 ml) 10 ml PRN PRN IV FLUSH LINE; Start 05/18/19 at 17:30 Ipratropium [place] (Atrovent Hfa) 4 puff Q6H RESP THERAPY INH Last administered on 06/07/19at 08:37; Admin Dose 4 PUFF; Start 05/21/19 at 20:00 Midazolam HCl 50 ml @ 0.5 mls/hr TITRATE IV Last administered on 06/07/19at 06:26; Admin Dose 8 MLS/HR; Start 06/02/19 at 08:30 Morphine Sulfate (morphine) 4 mg Q3H PRN IV SEVERE PAIN LEVEL 7-10; Start 06/06/19 at 07:30 JUAN F MATA Jun 07, 2019 09:27
--- NOTE | 2019-06-07 11:41 | PN ---
Date/Time of Note Date/Time of Note DATE: 06/07/19 TIME: 11:36 Assessment/Plan VTE Prophylaxis Risk score (from Ns)>0 risk: 11 SCD applied (from Ns): Yes Pharmacological prophylaxis: other Lines/Catheters IV Catheter Type (from Nrsg): PICC Line Central line still needed: Yes Urinary Cath still in place: Yes Reason Cath still needed: terminal illness/intractable pain Assessment/Plan Assessment/Plan 1. Acute hypoxic respiratory failure- stable - Will continue vent support. Niece is supposed to arrive later today. Will remain on comfort measures at this time 2. COPD exacerbation - Nebs 3. Acute toxic encephalopathy- stable - remains on Versed 4. Acute kidney injury- resolved - no longer monitoring labs per nieces request 5. Hypertension - stable 6. Mild cognitive impairment 7. Mild carotid stenosis, right ICA 8. Arrhythmia 9. Disposition - Awaiting arrival of niece before proceeding with terminal extubation Subjective 24 Hr Interval Summary Free Text/Dictation Patient remains stable on vent support on versed. No acute overnight changes. Exam/Review of Systems Exam Vitals Vital Signs Date Temp Pulse Resp B/P (MAP) Pulse Ox O2 O2 Flow FiO2 Time Delivery Rate 06/07/19 13 143/65 97 Mechanical 09:00 (91) Ventilator 06/07/19 30 08:00 06/07/19 98.0 08:00 06/07/19 83 05:26 Intake and Output 06/06/19 06/06/19 06/07/19 1515:00 23:00 07:00 IntakeIntake Total 514 ml 514 ml 564 ml OutputOutput Total 400 ml 355 ml 500 ml BalanceBalance 114 ml 159 ml 64 ml Exam General: Patient is laying in bed intubated and sedated. no acute distress noted Neck: Supple, nontender, midline Respiratory: Diminished, coarse to auscultation bilaterally. no wheezing appreciated Cardiovascular: S1, S2, regular rate and rhythm, no obvious murmurs Gastrointestinal: soft, non-tender to palpation, nondistended, bowel sounds heard. Skin: No new skin lesions Medications Medication Current Medications IV Flush (NS 3 ml) 3 ml PER PROTOCOL IV ; Start 05/18/19 at 02:00 Ondansetron HCl (Zofran Inj) 4 mg Q6H PRN IV NAUSEA/VOMITING; Start 05/18/19 at 02:00 IV Flush (NS 10 ml) 10 ml PRN PRN IV FLUSH LINE; Start 05/18/19 at 17:30 Ipratropium [place] (Atrovent Hfa) 4 puff Q6H RESP THERAPY INH Last administered on 06/07/19at 08:37; Admin Dose 4 PUFF; Start 05/21/19 at 20:00 Midazolam HCl 50 ml @ 0.5 mls/hr TITRATE IV Last administered on 06/07/19at 06:26; Admin Dose 8 MLS/HR; Start 06/02/19 at 08:30 Morphine Sulfate (morphine) 4 mg Q3H PRN IV SEVERE PAIN LEVEL 7-10; Start 06/06/19 at 07:30 SOFIA AYOUB MD Jun 07, 2019 11:41
[2019-06-07] MEDS ORDERED: LORAZEPAM 2 MG INJ IV SCH (16:00)
[2019-06-07] MEDS ORDERED: morphine (DRIP) 100 MG/100 ML 100 ML IV SCH (16:00)
[2019-06-07] MEDS ORDERED: morphine 10 MG INJ IV SCH (16:00)
[2019-06-07] MEDS ORDERED: ATROPINE 1% 5 ML OPH SL PRN (16:30)
[2019-06-07] MEDS ORDERED: LORAZEPAM 2 MG INJ IV PRN (16:30)
--- NOTE | 2019-06-07 17:55 | PDOCDIS ---
Discharge Instructions DIAGNOSIS Discharge Diagnosis 1. Acute hypoxic respiratory failure 2. COPD exacerbation 3. Acute toxic encephalopathy 4. Acute kidney injury- resolved 5. Hypertension 6. Mild cognitive impairment 7. Mild carotid stenosis, right ICA 8. Arrhythmia CONDITION [id number] Patient Condition: [id number] Guarded FOLLOW UP/APPOINTMENTS Follow-up Plan 1. Continue care under hospice SOFIA AYOUB MD Jun 07, 2019 17:55
--- NOTE | 2019-06-07 18:01 | DS ---
Date/Time of Note Date/Time of Note DATE: 06/07/19 TIME: 18:01 Discharge Summary Admission/Discharge Info Admit Date/Time May 18, 2019 at 00:50 Discharge Date/Time Discharge Diagnosis 1. Acute hypoxic respiratory failure 2. COPD exacerbation 3. Acute toxic encephalopathy 4. Acute kidney injury- resolved 5. Hypertension 6. Mild cognitive impairment 7. Mild carotid stenosis, right ICA 8. Arrhythmia Patient Condition: Guarded Consults Cardiology- Dr. Garza Infectious disease- Dr. Borja Pulmonology- Dr. eLe Nephrology- Dr. Schwartz Neurology- Dr. Valero Palliative - Dr. Miles Procedures Endotracheal tube placement Hx of Present Illness Patient is an 84-year-old male with a history of hypertension, asthma, CVA who was sent from SNF for worsening mentation. Patient was just discharged from here 2 days ago. During recent hospitalization he was found to be altered. 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 Patient was evaluated by a neurosurgeon and no intervention was done. Patient was cleared for aspirin. Patient was discharged to SNF and now he is sent back because of worsening mentation. Patient is currently nonverbal, eyes closed. Does not react much to sternal rub. Initially presented with oxygen saturation of 82%, currently vitals are stable. Head CT shows chronic lacunar infarct, moderate to severe chronic microvascular ischemic changes, but no acute findings Hospital Course Patient was admitted for evaluation of acute encephalopathy as well as acute hy poxic respiratory failure. Patient continued to decline in the ED and was orally intubated and placed on mechanical ventilation. He was transferred to the ICU and pulmonology was consulted for ventilator management. Neurology was consulted for evaluation of acute encephalopathy which was determined to be due to toxic source. Infectious disease was consulted for antibiotic management given patient developed septic shock and required pressor support. Home blood pressure medications were held. Nephrology was consulted for management for acute renal failure. Patient self extubated on 05/19 and was reintubated given respiratory distress. CT chest was performed which showed small effusions and bilateral pneumonia with underlying severe emphysema. Cardiology was consulted due to patients persistent hypotension and new onset arrhythmias. Weaning trials were performed daily which patient continued to failed. He was started on steroid taper with no improvement in his respiratory status. He completed a course of IV antibiotics for bilateral pneumonia. Given poor prognosis, palliative was consulted and discussed was held with patients only relative, his niece. She made the decision to transition him to DNR/DNI and keep comfortable until she was able to fly to [place]. When she arrived, she met with hospice and signed paperwork for GIP. Patient was discharged under inhouse hospice for ter cathy extubation and continued comfort care. Home Meds Active Scripts Atorvastatin Calcium (Atorvastatin Calcium) 20 Mg Tablet, 20 MG PO HS for 30 Days, TAB Prov:VIRGEN MCQUEEN 05/16/19 Reported Medications Mineral Oil* (Fleet* Mineral Oil Enema) 133 Ml Oil, 133 ML [place] Q48H PRN for CONSTIPATION, ENEMA 05/18/19 Bisacodyl* (Dulcolax*) 5 Mg Tablet.dr, 10 MG PO DAILY PRN for CONSTIPATION, TAB 05/18/19 Magnesium Hydroxide* (Milk Of Magnesia*) 400 Mg/5 Ml Oral.susp, 30 ML PO QHS PRN for CONSTIPATION, ML 05/18/19 Docusate Sodium* (Colace*) 100 Mg Capsule, 200 MG PO QHS, #30 CAP 05/18/19 Acetaminophen* (Acetaminophen*) 500 MG Extra Strength Tablet, 1000 MG PO Q6H PRN for MILD PAIN(1-3)OR ELEVATED TEMP, TAB 05/18/19 Acetaminophen* (Tylenol*) 325 Mg Tablet, 650 MG PO Q4H PRN for MILD PAIN LEVEL 1-3, TAB MILD PAIN, LOJA SCALE 1/10 - 3/10, OR FEVER ABOVE 100,(MAX 3 GRAMS PER 24 HOURS) 05/18/19 Acetaminophen* (Tylophen*) 500 Mg Capsule, 1000 MG PO TID PRN for PAIN, TAB 05/18/19 Nitroglycerin* (Nitrostat*) 0.4 Mg Tab.subl, 0.4 MG SL Q5MIN PRN for CHEST PAIN, BOTTLE 05/18/19 Albuterol Sulfate* (Albuterol Sulfate* Neb) 0.083%-3 Ml Neb, 2.5 MG NEB Q4H PRN for SHORTNESS OF BREATH, #30 VIAL 05/18/19 Calcium Carbonate* (Calcium Carbonate*) 600 MG Ca Tab, 500 MG PO QID PRN for GASTROINTESTINAL UPSET, TAB 05/18/19 Ascorbic Acid* (Vitamin C*) 500 Mg Capsule.sa, 500 MG PO DAILY, CAP 05/18/19 Multivitamins* (Theragran*) 1 Tab Tab, 1 TAB PO DAILY, TAB 05/18/19 Cran/Vitc/Mannose/Inulin/Brom (Uti-Stat Liquid) 3,875 Mg/30 Ml Liquid, 3875 MG PO DAILY 05/18/19 Cranberry Extract (Cranberry) 425 Mg Capsule, 425 MG PO DAILY, CAP 05/18/19 Thiamine* (Vitamin B-1*) 100 Mg Tablet, 100 MG PO DAILY, TAB 05/18/19 Fluticasone/Vilanterol (Breo Ellipta 200-25 Mcg INH) 1 Each Blst.w.dev, 1 PUFF INHALATION DAILY, #1 INHALER 05/18/19 Losartan Potassium* (Cozaar*) 25 Mg Tablet, 25 MG PO BID, #60 TAB 05/18/19 Hydrochlorothiazide* (Microzide*) 12.5 Mg Capsule, 12.5 MG PO DAILY, #30 CAP 05/18/19 Amlodipine Besylate* (Norvasc*) 5 Mg Tablet, 5 MG PO DAILY, TAB 05/18/19 Folic Acid* (Folic Acid*) 1 Mg Tablet, 1 MG PO DAILY, TAB 05/18/19 Budesonide-Formoterol Fumarate* (Symbicort*) 160-4.5 Hfa.aer.ad, 1 PUFF INH DAILY 05/10/19 Metoprolol Tartrate* (Lopressor*) 25 Mg Tablet, 1 TAB ORAL BID 05/10/19 Montelukast Sodium* (Montelukast Sodium*) 10 Mg Tablet, 1 TAB ORAL DAILY 05/10/19 Tiotropium [place]* (Spiriva*) 18 Mcg Cap.w.dev, 1 CAP INH DAILY 05/10/19 Follow-up Plan 1. Continue care under hospice Primary Care Provider Not On Staff Doctor Time spent on discharge: > 30 minutes SOFIA AYOUB MD Jun 07, 2019 18:01
--- NOTE | 2019-06-12 09:45 | DES ---
Date/Time of Note Date/Time of Note DATE: 06/12/19 TIME: 09:42 Discharge/ Summary Admission/Discharge Info Admit Date/Time May 18, 2019 at 00:50 Date/Time 06/07/19 1755 Final Diagnosis End stage COPD Preliminary Cause of Acute hypercapnic respiratory failure Admit History Patient is an 84-year-old male with a history of hypertension, asthma, CVA who was sent from SNF for worsening mentation. Patient was just discharged from here 2 days ago. During recent hospitalization he was found to be altered. 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 Patient was evaluated by a neurosurgeon and no intervention was done. Patient was cleared for aspirin. Patient was discharged to SNF and now he is sent back because of worsening mentation. Patient is currently nonverbal, eyes closed. Does not react much to sternal rub. Initially presented with oxygen saturation of 82%, currently vitals are stable. Head CT shows chronic lacunar infarct, moderate to severe chronic microvascular ischemic changes, but no acute findings Hospital Course Patient was admitted for evaluation of acute encephalopathy as well as acute hypoxic respiratory failure. Patient continued to decline in the ED and was orally intubated and placed on mechanical ventilation. He was transferred to the ICU and pulmonology was consulted for ventilator management. Neurology was consulted for evaluation of acute encephalopathy which was determined to be due to toxic source. Infectious disease was consulted for antibiotic management gi dashawn patient developed septic shock and required pressor support. Home blood pressure medications were held. Nephrology was consulted for management for acute renal failure. Patient self extubated on 05/19 and was reintubated given respiratory distress. CT chest was performed which showed small effusions and bilateral pneumonia with underlying severe emphysema. Cardiology was consulted due to patients persistent hypotension and new onset arrhythmias. Weaning trials were performed daily which patient continued to failed. He was started on steroid taper with no improvement in his respiratory status. He completed a course of IV antibiotics for bilateral pneumonia. Given poor prognosis, palliative was consulted and discussed was held with patients only relative, his niece. She made the decision to transition him to DNR/DNI and keep comfortable until she was able to fly to [place]. When she arrived, she met with hospice and signed paperwork for GIP. Patient was discharged under inhouse hospice for terminal extubation and continued comfort care. SOFIA AYOUB MD Jun 12, 2019 09:45
== END 2019-06-07 18:38 | disposition expired | DRG 870 ==
LOC: E/R 22:20 → ICU 05-18 00:50 → EDBEDREQSVC 05-18 10:14 → EDBEDREQ 05-18 10:15 → ICU 05-18 22:12
PROVIDERS: ADMIT Internal Medicine; ATTEND Internal Medicine
PROC: 02HV33Z Insertion of Infusion Device into Superior Vena Cava, Percutaneous Approach (ICD-10-PCS; 2019-05-18)
PROC: 4A133R1 Monitoring of Arterial Saturation, Peripheral, Percutaneous Approach (ICD-10-PCS; 2019-05-18)
PROC: 0BH17EZ Insertion of Endotracheal Airway into Trachea, Via Natural or Artificial Opening (ICD-10-PCS; 2019-05-18)
PROC: 5A1935Z Respiratory Ventilation, Less than 24 Consecutive Hours (ICD-10-PCS; 2019-05-18)
PROC: 5A1955Z Respiratory Ventilation, Greater than 96 Consecutive Hours (ICD-10-PCS; principal; 2019-05-19)
PROC: 0BH17EZ Insertion of Endotracheal Airway into Trachea, Via Natural or Artificial Opening (ICD-10-PCS; 2019-05-19)
DX: A41.9 Sepsis, unspecified organism (principal); J96.02 Acute respiratory failure with hypercapnia; G92 Toxic encephalopathy; R65.21 Severe sepsis with septic shock; J18.1 Lobar pneumonia, unspecified organism; J96.01 Acute respiratory failure with hypoxia; N17.0 Acute kidney failure with tubular necrosis; J44.1 Chronic obstructive pulmonary disease with (acute) exacerbation; J44.0 Chronic obstructive pulmonary disease with (acute) lower respiratory infection; I10 Essential (primary) hypertension; I65.21 Occlusion and stenosis of right carotid artery; Z66 Do not resuscitate; E11.9 Type 2 diabetes mellitus without complications; D64.9 Anemia, unspecified; I49.9 Cardiac arrhythmia, unspecified; F17.210 Nicotine dependence, cigarettes, uncomplicated; J20.9 Acute bronchitis, unspecified; E87.5 Hyperkalemia; Z86.73 Personal history of transient ischemic attack (TIA), and cerebral infarction without residual deficits; F03.90 Unspecified dementia, unspecified severity, without behavioral disturbance, psychotic disturbance, mood disturbance, and anxiety; Z90.49 Acquired absence of other specified parts of digestive tract
CPT/HCPCS: 31500; 36415; 36569; 36600; 70450; 71045; 71250; 74018; 76937; 80048; 80053; 80069; 80307; 81001; 82550; 82553; 82803; 82962; 83605; 83735; 84100; 84132; 84145; 84484; 85025; 85610; 85730; 87070; 87081; 87086; 93005; 93970; 94002; 94003; 94640; 94644; 94664; 94770; J0360; J0692; J1815; J1817; J1956; J2060; J2250; J2270; J2543; J2920; J2930; J3010; J3370; J3490; J7030; J7040; J7042; Q9967